=== PATIENT | male | born 1945 | race Caucasian/White ===

== ENCOUNTER 2019-06-20 14:20 | Emergency (ER) | payer MEDICARE, MEDICAID, SELFPAY ==
[2019-06-20 14:46] VITALS: BP 123/82; PULSE 119; RESP 20; TEMP 36.7; O2SAT 95
--- NOTE | 2019-06-20 15:05 | ED_ITS ---
HPI - Fall General: Chief Complaint: Fall Stated Complaint: fell hurt left hip,groin,head Time Seen by Provider: 06/20/19 14:55 Source: patient Mode of arrival: ambulatory Limitations: no limitations History of Present Illness: HPI Narrative: Patient comes in for left hip and groin pain after falling in the bathroom this morning. Patient appears in mild to moderate pain. Patient does appear well. Patient has a smell of alcohol on his breath. Patient does report having hypertension, is on a blood thinner, and takes cholesterol medicine. Patient does report alcohol consumption Review of Systems General: Reports: 10 or more systems reviewed and unremarkable except in HPI and below Musc: Reports: joint pain (left hip) PFSH ED PFSH: Statuses (acute, chronic, etc) shown below reflect problem list status as previously entered and may not be historically accurate Social History Smoking and tobacco status: current every day smoker Physical Exam Const: COMMON NORMALS: no apparent distress and oriented x3 GENERAL APPEARANCE: cooperative HENMT: COMMON NORMALS: normocephalic, external ears normal, EAC's normal, TM's normal bilaterally and external nose normal HEAD & SCALP: normal to inspection and normocephalic FACE & SINUS: normal facial exam NOSE: external nose normal GENERAL EAR: hearing not grossly impaired EXTERNAL EAR: Yes external ears normal EXTERNAL AUDITORY CANAL: EAC's normal TYMPANIC MEMBRANE: TM's normal bilaterally MOUTH: oral and palatal mucosa normal THROAT: posterior oropharynx normal Eye: COMMON NORMALS: PERRL and EOMs intact bilaterally PUPIL: Yes PERRL Neck/C-Spine: COMMON NORMALS: full ROM and no lymphadenopathy Lymph: LYMPHATIC: no lymphedema noted Chest: COMMONS NORMALS: inspection of chest normal and palpation of chest normal Resp: COMMON NORMALS: normal respiratory effort and clear to auscultation bilaterally AUSCULTATION: clear to auscultation bilaterally Cardio: COMMON NORMALS: regular rate and regular rhythm RATE: regular rate RHYTHM: regular rhythm GI: COMMON NORMALS: normal to inspection, nondistended, normoactive bowel sounds and non-tender : COMMON NORMALS: Yes no CVA tenderness BLADDER/KIDNEY EXAM: Yes no CVA tenderness Back/Pelvis: COMMON NORMALS: no CVA tenderness and thoracic and lumbar spine normal to inspection Extremity: COMMON NORMALS: negative for full ROM (left hip reduce movement d/t pain) GENERAL: No edema LEFT LOWER EXTREMITY: Yes hip joint Left hip: Yes palpation (tender) Neuro: COMMON NORMALS: oriented x3, moves all extremities and no focal motor deficits Psych: COMMON NORMALS: mental status grossly normal and cooperative Skin: COMMON NORMALS: no rashes or lesions noted GENERAL SKIN EXAM: no rashes or lesions noted Course Vital Signs: Vital signs: Vital Signs Temperature 98.1 F 06/20/19 14:46 Pulse Rate 78 06/20/19 16:04 Respiratory Rate 18 06/20/19 16:04 Blood Pressure 165/89 06/20/19 16:04 Pulse Oximetry 96 06/20/19 16:04 MDM - Fall MDM Narrative: Medical decision making narrative: Patient comes in today for complaints of left hip pain. Patient had fallen this morning and has been having increasing pain and inability to stand and bear weight to the left lower extremity. On exam patient appears well. Patient does have the smell of alcohol on his breath. Patient is unable to lift his left leg off the bed and has pain with movement of the leg. Right leg is normal. Abdomen soft nontender bowel sounds are present. Differential diagnosis includes intracranial bleeding, fracture of the hip, compression fracture of the spine, pneumonia, rib fracture. X-ray of the chest was normal. CT of the head noted no bleeding or fracture. CT of the pelvis noted no hip fracture or sign of compression fracture of the low spine. Patient had improved mobility of the hip after medication with pain. Encourage patient to drink plenty of fluids maintain activity as tolerated and follow-up with primary care in 3 days. Patient reported understanding and agreed to plan. Discharge Plan Discharge Patient Disposition: Home, Self-Care Clinical Impression: Fall from other slipping, tripping, or stumbling, Acute pain of left hip Condition: Stable Prescriptions: New hydrocodone-acetaminophen 5-325 mg tablet 1 tab PO Q8H PRN (Reason: pain) Qty: 10 RF: 0 Discharge Orders: Discharge Order (Routine); Ordered 06/20/19 Ordered By: Kyaw Lozada Referrals: Corrine Rainey MD [Primary Care Provider] - Discharge Diet: Usual diet Discharge Activity: Use walker/crutches as instructed Activity Restrictions/Additional Instructions: Activity as tolerated Gentle stretching and range of motion exercise Ice or heat to area of pain Drink plenty of water with medications Follow-up with primary care in three days for recheck Return to ER for high fever or new concerns Coding Level of Care Code ED Student Success Advisor for Juan Delarosa Exam Problem Focused
--- NOTE | 2019-06-20 15:12 | CT_ITS ---
WS: [id number] CT scan of the head, 06/20/2019 Clinical Data: fall Comparison: CT head, 01/14/2017. DLP: 785.[address] scans at [facility] use at least one of these dose optimization techniques: automat ed exposure control; mA and/or kV adjustment per patient size (includes targeted exams where dose is matched to clinical indication); or iterative reconstruction. Findings: The ventricular system is moderately dilated without shift. No recent infarct or hemorrhage is seen. There are no abnormal intracerebral masses. The cerebellum and brainstem are not remarkable. Bony windows of the skull and skull base show no fractures or erosions. The mastoid air cells, pr intern al auditory canals, sella turcica, intraorbital contents, and paranasal sinuses are unremarkable. CT/CT head wo con* [id number] Impression: Moderate cerebral atrophy unchanged.
--- NOTE | 2019-06-20 15:12 | XR_ITS ---
WS: [id number] Portable AP upright chest, 06/20/2019 Clinical Data: fall Comparison: None. Findings: No nodules, masses or effusions are seen. The heart is normal. The pulmonary vascularity is not increased. No pneumonia or pneumothorax is seen. There is patchy atelectasis over the surface of the left diaphragm. The diaphragms are flattened. Aortic arch shows calcification and minimal tortuo sity. 1. Minimal patchy atelectasis over surface of the left diaphragm. 2. Atherosclerosis and hyperinflation. XR/XR chest 1V portable [id number] Impression:
--- NOTE | 2019-06-20 15:12 | CT_ITS ---
WS: [id number] CT scan of the pelvis and hips. Additional two-dimensional coronal and sagittal reconstruction was pe rformed. 06/20/2019 Clinical Data: fall right groin pain Comparison: None. DLP: 423.54 mGy-cm All CT scans at [facility] use at least one of these dose optimization techniques: automat ed exposure control; mA and/or kV adjustment per patient size (includes targeted exams where dose is matched to clinical indication); or iterative reconstruction. Findings: No fractures or dislocations are seen. The SI joints are normal. The hips are unremarkable. The pubic symphysis is normal. Transvenous disease at L3-L4, L4-L5 and L5-S1 is seen. There is vascular calcif ication of the distal abdominal aorta and the iliac arteries. The soft tissues are not remarkable. Bl adder is full. There is fecal material in the rectum. No inguinal hernia is seen. CT/CT bony pelvis [id number] Impression: Negative CT scan of the pelvis and hips.
[2019-06-20 15:18] VITALS: RESP 18; O2SAT 98
[2019-06-20] MEDS: fentaNYL 50 mcg/mL INJ 2mL 25 MCG IVP (15:18)
[2019-06-20] MEDS: ketorolac 30 mg/mL INJ 15 MG IVP (16:01)
[2019-06-20 16:04] VITALS: BP 165/89; PULSE 78; RESP 18; O2SAT 96
== END 2019-06-20 16:06 | disposition home or self-care (01) ==
LOC: ER 16:38
PROVIDERS: Emergency Provider Nurse Practitioner Family; Family Provider Family Medicine; PCP Family Medicine
DX: M25.552 Pain in left hip (principal); F17.210 Nicotine dependence, cigarettes, uncomplicated
CPT/HCPCS: 70450; 71045; 72192; 96374; 96375; 99281; J1885; J3010

== ENCOUNTER 2019-07-03 13:57 | Emergency (ER) | payer MEDICARE, MEDICAID, SELFPAY ==
[2019-07-03 13:59] VITALS: BMI 28.0
--- NOTE | 2019-07-03 13:59 | ED_ITS ---
HPI - Abdominal Pain General: Chief Complaint: Urogenital-Male Stated Complaint: ABDOMEN PAIN Time Seen by Provider: 07/03/19 13:58 Source: patient Mode of arrival: ambulatory Limitations: no limitations History of Present Illness: HPI narrative: Patient is a 74-year-old male who presents to ED today with complaints of dysuria and hematuria as well as lower abdominal pain; symptoms began this morning; patient does have a history of BPH that he follows up with Dr. Sheth for; patient denies nausea, vomiting, diarrhea, constipation; he has not had fever/chills; he denies flank pain MD elicited complaint: abdominal pain Pertinent past history: other (BPH) Onset (ago): hour(s) Pain Consistency: constant Location: Suprapubic Severity: mild Radiation: none Migration to: no migration Exacerbating factors: nothing Relieving factors: other (urinating ) Associated Symptoms: Reports no associated symptoms, dysuria and hematuria; Denies chills, constipation, diarrhea, fever(s), heartburn, hematemesis, nausea and vomiting Review of Systems Const: Denies: fever or chills Card: Denies: chest pain, palpitations, irregular heart rhythm, edema, lightheadedness or pre-syncope Resp: Denies: shortness of breath, productive cough, coughing up blood or chest congestion GI: Reports: abdominal pain; Denies: nausea, vomiting, vomiting blood, difficulty swallowing, heartburn/indigestion, diarrhea, constipation or painful bowel movements : Reports: painful urination and blood in urine; Denies: flank pain, difficulty urinating, urinary frequency, urinary urgency, urinary hesitancy, penile discharge, testicular pain or scrotal swelling Musc: Denies: neck pain or back pain Skin/Breast: Denies: rash Neuro: Denies: headache, numbness in extremities, weakness in extremities or difficulty walking PFSH ED PFSH: Statuses (acute, chronic, etc) shown below reflect problem list status as previously entered and may not be historically accurate Social History Smoking and tobacco status: current every day smoker Physical Exam Const: COMMON NORMALS: no apparent distress, oriented x3, alert and well nourished OTHER: smells of etoh HENMT: COMMON NORMALS: normocephalic and head/scalp atraumatic HEAD & SCALP: normocephalic and atraumatic Neck/C-Spine: COMMON NORMALS: full ROM, no lymphadenopathy, supple and no meningeal signs Chest: COMMONS NORMALS: inspection of chest normal Resp: COMMON NORMALS: normal respiratory effort and clear to auscultation bilaterally AUSCULTATION: clear to auscultation bilaterally Cardio: COMMON NORMALS: regular rate and regular rhythm RATE: regular rate RHYTHM: regular rhythm GI: COMMON NORMALS: normal to inspection, nondistended, normoactive bowel s ounds, soft to palpation, no hepatosplenomegaly and no masses PALPATION: Yes soft, Yes tender (mild; across lower abdomen) and Yes no hepatosplenomegaly : COMMON NORMALS: Yes no CVA tenderness BLADDER/KIDNEY EXAM: Yes no CVA tenderness Back/Pelvis: COMMON NORMALS: no CVA tenderness and thoracic and lumbar spine normal to inspection Extremity: COMMON NORMALS: normal to inspection Neuro: COMMON NORMALS: oriented x3 SENSORIUM/ORIENTATION: Yes alert MENINGEAL SIGNS: Yes no meningeal signs Skin: COMMON NORMALS: no rashes or lesions noted GENERAL SKIN EXAM: no rashes or lesions noted Course Vital Signs: Vital signs: Vital Signs Temperature 97.9 F 07/03/19 14:27 Pulse Rate 73 07/03/19 17:26 Respiratory Rate 20 H 07/03/19 17:26 Blood Pressure 140/71 07/03/19 17:26 Pulse Oximetry 97 07/03/19 17:26 MDM - Abdominal Pain Lab Data: Labs: Lab Results 07/03/19 07/03/19 07/03/19 Range/Units 14:28 14:28 15:57 WBC 11.0 H (4.0-10.0) 10^3/ uL RBC 4.99 (4.1-5.3) 10^6/u L Hgb 15.2 (11.7-16.6) g/dL Hct 44.8 (42.0-52.0) % MCV 89.8 (80-94) fL MCH 30.5 (28.0-34.0) pg MCHC 33.9 (30.0-36.0) g/dL RDW 14.6 (12.1-15.1) % Plt Count 254 (130-400) 10^3/c mm MPV 9.7 (7.4-10.4) fL Neut % (Auto) 63.4 % Lymph % (Auto) 26.7 % O'Brien % (Auto) 6.9 % Eos % (Auto) 2.2 % Baso % (Auto) 0.4 % Neut # (Auto) 7.0 (1.8-7.7) 10^3/u L Lymph # (Auto) 2.9 (0.8-4.8) 10^3/u L O'Brien # (Auto) 0.8 (0.2-0.9) 10^3/u L Eos # (Auto) 0.2 (0.0-0.8) 10^3/u L Baso # (Auto) 0.0 (0.0-0.1) 10^3/u L Nucleated RBC % (a uto) 0 % Nucleated RBCs # 0.0 /100WBC Sodium 135 L (136-145) mmol/L Potassium 3.5 (3.5-5.1) mmol/L Chloride 96 L (98-107) mmol/L Carbon Dioxide 27 (22-29) mmol/L Anion Gap 15.5 (5-19) BUN 14 (8-23) mg/dL Creatinine 0.9 (0.7-1.2) mg/dL Glucose 83 (74-106) mg/dL Calcium 9.9 (8.8-10.2) mg/Dl Total Bilirubin 0.5 (0.15-1.2) mg/dL AST 20 (0-40) U/L ALT 21 (0-41) U/L Alkaline Phosphata se 128 (40-130) IU/L Total Protein 6.6 (6.6-8.7) g/dL Albumin 4.0 (3.5-5.2) g/dL Globulin 2.6 (1.3-4.6) g/dL Lipase 23 (13-60) U/L Urine Color Yellow (Yellow) Urine Appearance Sl hazy (CLEAR) Urine pH 7 (5-7) Ur Specific Gravit y 1.001 L (1.005-1.030) Urine Protein Neg (Negative) Urine Glucose (UA) Norm (Normal) Urine Ketones Negative (Negative) Urine Occult Blood 3+ H (Negative) Urine Nitrate Negative (Negative) Urine Bilirubin Neg (NEGATIVE) Urine Urobilinogen Norm (Negative) mg/dL Ur Leukocyte Debora ase 2+ H (Negative) Urine RBC 25-40 H (0-2) /hpf Urine WBC Too numerous to c nt H (0-5) /hpf Ur Squamous Epith Cells None (0-5) Urine Bacteria 2+ H (NONE) Urine Mucus Trace Discharge Plan Discharge Patient Disposition: Home, Self-Care Clinical Impression: Urinary tract infection Qualifiers: Urinary tract infection type: acute cystitis Hematuria presence: with hematuria Qualified Code(s): N30.01 - Acute cystitis with hematuria Condition: Stable Prescriptions: New ciprofloxacin HCl 500 mg tablet 500 mg PO BID Qty: 7 RF: 0 No Action hydrocodone-acetaminophen 5-325 mg tablet 1 tab PO Q8H PRN (Reason: pain) Qty: 10 RF: 0 Discharge Orders: Discharge Order (Routine); Ordered 07/03/19 Ordered By: America Govea Referrals: Corrine Rainey MD [Primary Care Provider] - Discharge Diet: Usual diet Discharge Activity: Resume usual activity Activity Restrictions/Additional Instructions: Please return to the emergency department for worsening pain, worsening blood, fevers of 100.4 or greater, flank pain, or any other concerns you may have. Otherwise follow-up with Dr. Sheth at your scheduled appointment. Discharge Date/Time: 07/03/19 17:33 Coding Level of Care Code ED Apron Operator for Juan Delarosa Exam Problem Focused
[2019-07-03 14:27] VITALS: BP 142/78; PULSE 73; RESP 14; TEMP 36.6; O2SAT 96
[2019-07-03 14:36] LABS: Basophils % 0.4 %; Eosinophils # 0.2 10^3/uL (0.0-0.8); Eosinophils % 2.2 %; Hematocrit 44.8 % (42.0-52.0); Hemoglobin 15.2 g/dL (11.7-16.6); Lymphocytes # 2.9 10^3/uL (0.8-4.8); Lymphocytes % 26.7 %; Mean Corpuscular HGB Conc 33.9 g/dL (30.0-36.0); Mean Corpuscular Hemoglobin 30.5 pg (28.0-34.0); Mean Corpuscular Volume 89.8 fL (80-94); Mean Platelet Volume 9.7 fL (7.4-10.4); Monocytes # 0.8 10^3/uL (0.2-0.9); Monocytes % 6.9 %; Neutrophils % 63.4 %; Nucleated Red Blood Cells % 0 %; Platelet Count 254 10^3/cmm (130-400); Red Blood Count 4.99 10^6/uL (4.1-5.3); Red Cell Distribution Width 14.6 % (12.1-15.1)
[2019-07-03 14:51] VITALS: BMI 28.0
[2019-07-03 14:59] LABS: Alanine Aminotransferase 21 U/L (0-41); Alkaline Phosphatase 128 IU/L (40-130); Anion Gap 15.5 (5-19); Aspartate Amino Transferase 20 U/L (0-40); Blood Urea Nitrogen 14 mg/dL (8-23); Calcium 9.9 mg/Dl (8.8-10.2); Carbon Dioxide 27 mmol/L (22-29); Chloride 96 mmol/L (98-107); Globulin 2.6 g/dL (1.3-4.6); Glucose 83 mg/dL (74-106); Lipase 23 U/L (13-60); Potassium 3.5 mmol/L (3.5-5.1); Sodium 135 mmol/L (136-145); Total Bilirubin 0.5 mg/dL (0.15-1.2); Total Protein 6.6 g/dL (6.6-8.7)
[2019-07-03 16:17] LABS: Bilirubin Urine Neg (NEGATIVE); Blood Urine 3+ (Negative); Glucose Urine UA Norm (Normal); Ketones Urine Negative (Negative); Nitrate Urine Negative (Negative); Protein Urine Neg (Negative); Specific Gravity, Urine 1.001 (1.005-1.030); Urine Appearance SL Hazy (CLEAR); Urine Color Yellow (Yellow); pH Urine 7 (5-7)
[2019-07-03 16:18] LABS: Add Urine Microscopic? YES; Leukocyte Esterase Urine 2+ (Negative); Urobilinogen Urine Norm (Negative)
[2019-07-03 16:23] LABS: Add Urine Culture? Yes; Bacteria Urine 2+; Mucus Urine TRACE; RBC Urine 25-40 /hpf (0-2); WBC Urine TOO NUMEROUS TO CNT /hpf (0-5)
[2019-07-03 17:26] VITALS: BP 140/71; PULSE 73; RESP 20; O2SAT 97
== END 2019-07-03 17:33 | disposition home or self-care (01) ==
PROVIDERS: Emergency Provider Physician Assistant; Family Provider Family Medicine; PCP Family Medicine
DX: N30.01 Acute cystitis with hematuria (principal); F17.210 Nicotine dependence, cigarettes, uncomplicated
CPT/HCPCS: 36415; 80053; 81003; 83690; 85025; 87077; 87086; 87186; 99282

== ENCOUNTER 2019-07-19 19:27 | Inpatient (IN) | payer MEDICARE, MEDICAID, SELFPAY ==
[2019-07-19 19:28] VITALS: BP 123/68; PULSE 109; RESP 18; TEMP 37.1; O2SAT 92; BMI 28.0
--- NOTE | 2019-07-19 19:36 | XR_ITS ---
WS: [id number] ONE VIEW CHEST HISTORY: 74 years old Male with cough/congestion AP upright chest comparison 06/30/2019 FINDINGS: Continued lung hyperexpansion with bibasilar increased interstitial markings. Slight improved left lo wer lung zone atelectasis and/or pneumonia. No interval pulmonary parenchymal opacity. Heart size and pulmonary vascular markings unremarkable. Thoracic aorta atherosclerosis. No subdiaphragmatic free a ir. XR/XR chest 1V portable [id number] IMPRESSION: Chronic emphysema with bibasilar interstitial scarring/fibrosis and mild improv ed left basilar atelectasis and/or pneumonia.
--- NOTE | 2019-07-19 19:38 | ECG_ITS ---
Measurements Intervals [place] Rate: 110 P: MD: 0 QRS: 44 QRSD: 92 T: 56 QT: 337 QTc: 457 ATRIAL FIBRILLATION WITH RAPID VENTRICULAR RESPONSE WITH ABERRANT CONDUCTION OR VE VENTRICULAR PREMATURE COMPLEXES ABNORMAL RHYTHM ECG Compared to ECG 06/05/2019 02:11:03 Aberrant conduction of supraventricular beat(s) now present Ventricular premature complex(es) now present Electronically Signed On 07-19-2019 22:17:38 SUPERVISOR ADVICE by Dionne Stark M.D. [email or web address]
--- NOTE | 2019-07-19 19:38 | W.ED.SOB ---
Documented by User: KAPIL Hoang 07/20/19 00:44 HPI - SOB/Dyspnea General: Chief Complaint: Shortness of Breath/Dyspnea Stated Complaint: resp distress Time Seen by Provider: 07/19/19 19:36 Source: patient and EMS Mode of arrival: EMS Limitations: no limitations History of Present Illness: HPI Narrative: Patient is a 74-year-old male who presents to ED today via EMS for complaints of fevers, shortness of breath, and chest pains that have been present over the past 3 days. He states fevers have been as high as 102. He states the chest pain has been intermittent and located substernally. It is accompanied with a productive cough. Patient reports no previous cardiac history but does report a history of atrial fibrillation. Reports a history of COPD. Complains of some mild abdominal pain that is not accompanied with nausea, vomiting, or diarrhea. Has noticed dark and foul-smelling urine. MD elicited complaint: shortness of breath, cough, pain with inspiration and chest pain Pertinent past history: COPD Onset (ago): day(s) Exacerbating factors: nothing Relieving factors: nothing Known history of: COPD Associated symptoms: Reports abdominal pain, chest congestion, chest pain and fever(s); Deny extremity pain, hemoptysis, lightheadedness, nausea, orthopnea, palpitations, syncope or vomiting Review of Systems Const: Reports: fever, chills and body aches Eyes: Denies: change in vision, blurry vision, photophobia or eye discharge ENMT: Denies: throat pain, enlarged tonsils or painful swallowing Card: Reports: chest pain; Denies: palpitations, irregular heart rhythm (chronic hx of atrial fib), edema, swelling of feet/ankles, lightheadedness, syncope, pre-syncope, shortness of breath on exertion or shortness of breath when lying down Resp: Reports: shortness of breath, productive cough, pain on inspiration, change in phlegm color and chest congestion; Denies: wheezing or coughing up blood GI: Reports: abdominal pain; Denies: nausea, vomiting, vomiting blood, difficulty swallowing, heartburn/indigestion, diarrhea, change in stool character or white/light colored stool : Reports: other (reports darker than normal urine and foul odor ); Denies: difficulty urinating, painful urination, urinary frequency, urinary urgency or urinary hesitancy Musc: Denies: neck pain, back pain, extremity pain, extremity swelling, joint pain, joint swelling, redness or joint warmth Skin/Breast: Denies: rash Neuro: Denies: headache, numbness in extremities, weakness in extremities or changes in sensation PFSH ED PFSH: Statuses (acute, chronic, etc) shown below reflect problem list status as previously entered and may not be historically accurate Medical History (Updated 07/20/19 @ 00:03 by Alonso Cotto MD) Anxiety and depression (Acute) Atrial fibrillation (Acute) Chronic anticoagulation (Acute) COPD (chronic obstructive pulmonary disease) (Acute) Hyperlipidemia (Acute) Hypertension (Acute) Surgical History (Updated 07/19/19 @ 23:55 by Alonso Cotto MD) H/O eye surgery (Acute) History of laparotomy (Acute) History of lithotripsy (Acute) History of ureter stent (Acute) Family History (Updated 07/19/19 @ 23:55 by Alonso Cotto MD) Other CAD (coronary artery disease) Social History (Updated 07/19/19 @ 23:56 by Alonso Cotto MD) Smoking and tobacco status: current every day smoker Alcohol intake: current Alcohol intake frequency: 3 or more drinks per day Alcohol type: hard liquor Substance/Drug Use: never Physical Exam Const: COMMON NORMALS: average body habitus, oriented x3, no limitations, alert and well nourished ORIENTATION/CONSCIOUSNESS: Yes oriented to person, Yes oriented to place and Yes oriented to time OTHER: looks like he doesn't feel well; mildly diaphoretic; smells of etoh HENMT: COMMON NORMALS: normocephalic, head/scalp atraumatic, hearing grossly normal bilaterally, EAC's normal, TM's normal bilaterally, external nose normal, nasal mucous membranes and turbinates normal, moist oral mucous membranes and oropharynx normal HEAD & SCALP: normocephalic and atraumatic NOSE: external nose normal and nasal mucous membranes and turbinates normal EXTERNAL AUDITORY CANAL: EAC's normal TYMPANIC MEMBRANE: TM's normal bilaterally Eye: COMMON NORMALS: PERRL and EOMs intact bilaterally PUPIL: Yes PERRL Neck/C-Spine: COMMON NORMALS: full ROM, no lymphadenopathy and no meningeal signs Resp: COMMON NORMALS: normal respiratory effort AUSCULTATION: wheezes (scattered throughout ) Cardio: RATE: tachycardic RHYTHM: abnormal rhythm irregularly irregular GI: COMMON NORMALS: normal to inspection, nondistended, normoactive bowel sounds, soft to palpation, non-tender, no hepatosplenomegaly and no masses PALPATION: Yes soft and Yes no hepatosplenomegaly Extremity: COMMON NORMALS: normal to inspection Neuro: COMMON NORMALS: oriented x3, CN's II-XII intact bilaterally, moves all extremities, no focal motor deficits and no sensory deficits noted SENSORIUM/ORIENTATION: Yes alert, Yes oriented to person, Yes oriented to place and Yes oriented to time MENINGEAL SIGNS: Yes no meningeal signs Skin: COMMON NORMALS: no rashes or lesions noted GENERAL SKIN EXAM: no rashes or lesions noted Course Vital Signs: Vital signs: Vital Signs Temperature 98.2 F 07/19/19 21:25 Pulse Rate 86 07/20/19 00:27 Respiratory Rate 18 07/20/19 00:27 Blood Pressure 151/95 07/20/19 00:27 Pulse Oximetry 96 07/20/19 00:27 MDM - SOB/Dyspnea MDM Narrative: Medical decision making narrative: Patient is a 74-year-old male with a history of COPD who presented to ED today with complaints of shortness of breath, difficulty breathing, chest pain, fevers of up to 102, body aches, and dark/foul-smelling urine. Initial EKG and repeat EKG both showing atrial fibrillation that patient has a history of. Initial troponin is 39-pending repeat. He has mild leukocytosis of 10.7 with a normal lactate. He has a potassium of 2.5-normal mag. He was started on IV potassium here. CXR appears normal. O2 sats here dipping to 88% so he was placed on 2L. UA showing probable UTI with WBCs too many to count. Last urine culture grew enterococcus faecalis. Patient does report a history of chronic UTIs and sees Dr. Sheth for this. LFTs mildly elevated but patient is a chronic alcohol user. His influenza swab is negative. Spoke to Dr. Mcintyre who spoke to Dr. Cotto who requested ABG and will admit the patient. Lab Data: Labs: Lab Results 07/19/19 07/19/19 07/19/19 Range/Units 19:39 19:45 19:45 WBC 10.7 H (4.0-10.0) 10^3/ uL RBC 4.67 (4.1-5.3) 10^6/u L Hgb 13.7 (11.7-16.6) g/dL Hct 39.3 L (42.0-52.0) % MCV 84.2 (80-94) fL MCH 29.3 (28.0-34.0) pg MCHC 34.9 (30.0-36.0) g/dL RDW 15.1 (12.1-15.1) % Plt Count 182 (130-400) 10^3/c mm MPV 10.4 (7.4-10.4) fL Neut % (Auto) 70.0 % Lymph % (Auto) 15.8 % [place] % (Auto) 13.0 % Eos % (Auto) 0.2 % Baso % (Auto) 0.2 % Neut # (Auto) 7.5 (1.8-7.7) 10^3/u L Lymph # (Auto) 1.7 (0.8-4.8) 10^3/u L [place] # (Auto) 1.4 H (0.2-0.9) 10^3/u L Eos # (Auto) 0.0 (0.0-0.8) 10^3/u L Baso # (Auto) 0.0 (0.0-0.1) 10^3/u L Nucleated RBC % (a uto) 0 % Nucleated RBCs # 0.0 /100WBC Specimen Type Sample Site ABG pH (7.35-7.45) ABG pCO2 (35-45) mmHg ABG pO2 (80.0-100.0) mmH g ABG HCO3 (22-26) mmol/L ABG Base Excess (-2.0-2.0) mmol/ L Ancelmo Test Hematocrit (42-52) % O2 Delivery Device O2 Liters/Min % Cnc Operator Programmer ID Sodium 131 L (136-145) mmol/L Potassium 2.5 L* (3.5-5.1) mmol/L Chloride 89 L (98-107) mmol/L Carbon Dioxide 26 (22-29) mmol/L Anion Gap 18.5 (5-19) BUN 19 (8-23) mg/dL Creatinine 0.9 (0.7-1.2) mg/dL Glucose 119 H (65-115) mg/dL Lactate (0.5-2.2) mmol/L Calcium 9.6 (8.5-10.5) mg/dL Magnesium (1.7-2.3) mg/dL Total Bilirubin 0.5 (0.15-1.2) mg/dL AST 60 H (0-40) U/L ALT 42 H (0-41) U/L Alkaline Phosphata se 97 (40-130) IU/L Creatine Kinase 282 (39-308) U/L CK-MB (CK-2) 4.2 (0-10.4) ng/mL CK-MB (CK-2) Rel I ndex (0.0-5.3) % Troponin T Baselin e (0-15) ng/mL Troponin T 120 Min [place] (0-15) ng/mL Delta Troponin T (0-10) ABS# Total Protein 6.8 (6.6-8.7) g/dL Albumin 3.3 L (3.5-5.2) g/dL Globulin 3.5 (1.3-4.6) g/dL Urine Color (Yellow) Urine Appearance (CLEAR) Urine pH (5-7) Ur Specific Gravit y (1.005-1.030) Urine Protein (Negative) Urine Glucose (UA) (Normal) Urine Ketones (Negative) Urine Occult Blood (Negative) Urine Nitrate (Negative) Urine Bilirubin (NEGATIVE) Urine Urobilinogen (Negative) mg/dL Ur Leukocyte Debora ase (Negative) Urine RBC (0-2) /hpf Urine WBC (0-5) /hpf Ur Squamous Epith Cells (0-5) Urine Bacteria (NONE) Ethyl Alcohol (0-10) mg/dL Influenza Type A A g Negative (Negative) POC Influenza B Ag Negative (Negative) 07/19/19 07/19/19 07/19/19 Range/Units 19:45 19:45 19:45 WBC (4.0-10.0) 10^3/ uL RBC (4.1-5.3) 10^6/u L Hgb (11.7-16.6) g/dL Hct (42.0-52.0) % MCV (80-94) fL MCH (28.0-34.0) pg MCHC (30.0-36.0) g/dL RDW (12.1-15.1) % Plt Count (130-400) 10^3/c mm MPV (7.4-10.4) fL Neut % (Auto) % Lymph % (Auto) % [place] % (Auto) % Eos % (Auto) % Baso % (Auto) % Neut # (Auto) (1.8-7.7) 10^3/u L Lymph # (Auto) (0.8-4.8) 10^3/u L [place] # (Auto) (0.2-0.9) 10^3/u L Eos # (Auto) (0.0-0.8) 10^3/u L Baso # (Auto) (0.0-0.1) 10^3/u L Nucleated RBC % (a uto) % Nucleated RBCs # /100WBC Specimen Type Sample Site ABG pH (7.35-7.45) ABG pCO2 (35-45) mmHg ABG pO2 (80.0-100.0) mmH g ABG HCO3 (22-26) mmol/L ABG Base Excess (-2.0-2.0) mmol/ L Ancelmo Test Hematocrit (42-52) % O2 Delivery Device O2 Liters/Min % Cnc Operator Programmer ID Sodium (136-145) mmol/L Potassium (3.5-5.1) mmol/L Chloride (98-107) mmol/L Carbon Dioxide (22-29) mmol/L Anion Gap (5-19) BUN (8-23) mg/dL Creatinine (0.7-1.2) mg/dL Glucose (65-115) mg/dL Lactate 1.8 (0.5-2.2) mmol/L Calcium (8.5-10.5) mg/dL Magnesium 2.1 (1.7-2.3) mg/dL Total Bilirubin (0.15-1.2) mg/dL AST (0-40) U/L ALT (0-41) U/L Alkaline Phosphata se (40-130) IU/L Creatine Kinase (39-308) U/L CK-MB (CK-2) (0-10.4) ng/mL CK-MB (CK-2) Rel I ndex (0.0-5.3) % Troponin T Baselin e 39 H (0-15) ng/mL Troponin T 120 Min [place] (0-15) ng/mL Delta Troponin T (0-10) ABS# Total Protein (6.6-8.7) g/dL Albumin (3.5-5.2) g/dL Globulin (1.3-4.6) g/dL Urine Color (Yellow) Urine Appearance (CLEAR) Urine pH (5-7) Ur Specific Gravit y (1.005-1.030) Urine Protein (Negative) Urine Glucose (UA) (Normal) Urine Ketones (Negative) Urine Occult Blood (Negative) Urine Nitrate (Negative) Urine Bilirubin (NEGATIVE) Urine Urobilinogen (Negative) mg/dL Ur Leukocyte Debora ase (Negative) Urine RBC (0-2) /hpf Urine WBC (0-5) /hpf Ur Squamous Epith Cells (0-5) Urine Bacteria (NONE) Ethyl Alcohol (0-10) mg/dL Influenza Type A A g (Negative) POC Influenza B Ag (Negative) 07/19/19 07/19/19 07/19/19 Range/Units 20:14 21:30 21:30 WBC (4.0-10.0) 10^3/ uL RBC (4.1-5.3) 10^6/u L Hgb (11.7-16.6) g/dL Hct (42.0-52.0) % MCV (80-94) fL MCH (28.0-34.0) pg MCHC (30.0-36.0) g/dL RDW (12.1-15.1) % Plt Count (130-400) 10^3/c mm MPV (7.4-10.4) fL Neut % (Auto) % Lymph % (Auto) % [place] % (Auto) % Eos % (Auto) % Baso % (Auto) % Neut # (Auto) (1.8-7.7) 10^3/u L Lymph # (Auto) (0.8-4.8) 10^3/u L [place] # (Auto) (0.2-0.9) 10^3/u L Eos # (Auto) (0.0-0.8) 10^3/u L Baso # (Auto) (0.0-0.1) 10^3/u L Nucleated RBC % (a uto) % Nucleated RBCs # /100WBC Specimen Type Sample Site ABG pH (7.35-7.45) ABG pCO2 (35-45) mmHg ABG pO2 (80.0-100.0) mmH g ABG HCO3 (22-26) mmol/L ABG Base Excess (-2.0-2.0) mmol/ L Ancelmo Test Hematocrit (42-52) % O2 Delivery Device O2 Liters/Min % Cnc Operator Programmer ID Sodium (136-145) mmol/L Potassium (3.5-5.1) mmol/L Chloride (98-107) mmol/L Carbon Dioxide (22-29) mmol/L Anion Gap (5-19) BUN (8-23) mg/dL Creatinine (0.7-1.2) mg/dL Glucose (65-115) mg/dL Lactate (0.5-2.2) mmol/L Calcium (8.5-10.5) mg/dL Magnesium (1.7-2.3) mg/dL Total Bilirubin (0.15-1.2) mg/dL AST (0-40) U/L ALT (0-41) U/L Alkaline Phosphata se (40-130) IU/L Creatine Kinase (39-308) U/L CK-MB (CK-2) (0-10.4) ng/mL CK-MB (CK-2) Rel I ndex (0.0-5.3) % Troponin T Baselin e (0-15) ng/mL Troponin T 120 Min [place] 31.68 H (0-15) ng/mL Delta Troponin T -7.32 L (0-10) ABS# Total Protein (6.6-8.7) g/dL Albumin (3.5-5.2) g/dL Globulin (1.3-4.6) g/dL Urine Color Dark yellow (Yellow) Urine Appearance Cloudy (CLEAR) Urine pH 7 (5-7) Ur Specific Gravit y 1.005 (1.005-1.030) Urine Protein 1+ H (Negative) Urine Glucose (UA) Norm (Normal) Urine Ketones Negative (Negative) Urine Occult Blood 3+ H (Negative) Urine Nitrate Negative (Negative) Urine Bilirubin Neg (NEGATIVE) Urine Urobilinogen 1 H (Negative) mg/dL Ur Leukocyte Debora ase 2+ H (Negative) Urine RBC 40-50 H (0-2) /hpf Urine WBC Too numerous to c nt H (0-5) /hpf Ur Squamous Epith Cells None (0-5) Urine Bacteria 1+ H (NONE) Ethyl Alcohol 76 H (0-10) mg/dL Influenza Type A A g (Negative) POC Influenza B Ag (Negative) 07/19/19 Range/Units 22:29 WBC (4.0-10.0) 10^3/ uL RBC (4.1-5.3) 10^6/u L Hgb (11.7-16.6) g/dL Hct (42.0-52.0) % MCV (80-94) fL MCH (28.0-34.0) pg MCHC (30.0-36.0) g/dL RDW (12.1-15.1) % Plt Count (130-400) 10^3/c mm MPV (7.4-10.4) fL Neut % (Auto) % Lymph % (Auto) % [place] % (Auto) % Eos % (Auto) % Baso % (Auto) % Neut # (Auto) (1.8-7.7) 10^3/u L Lymph # (Auto) (0.8-4.8) 10^3/u L [place] # (Auto) (0.2-0.9) 10^3/u L Eos # (Auto) (0.0-0.8) 10^3/u L Baso # (Auto) (0.0-0.1) 10^3/u L Nucleated RBC % (a uto) % Nucleated RBCs # /100WBC Specimen Type Arterial Sample Site Radial, right ABG pH 7.48 H (7.35-7.45) ABG pCO2 36.2 (35-45) mmHg ABG pO2 73.0 L (80.0-100.0) mmH g ABG HCO3 27.2 H (22-26) mmol/L ABG Base Excess 3.8 H (-2.0-2.0) mmol/ L Ancelmo Test Pos Hematocrit 44.2 (42-52) % O2 Delivery Device Nc O2 Liters/Min 2.0 % Cnc Operator Programmer ID vossa Sodium (136-145) mmol/L Potassium (3.5-5.1) mmol/L Chloride (98-107) mmol/L Carbon Dioxide (22-29) mmol/L Anion Gap (5-19) BUN (8-23) mg/dL Creatinine (0.7-1.2) mg/dL Glucose (65-115) mg/dL Lactate (0.5-2.2) mmol/L Calcium (8.5-10.5) mg/dL Magnesium (1.7-2.3) mg/dL Total Bilirubin (0.15-1.2) mg/dL AST (0-40) U/L ALT (0-41) U/L Alkaline Phosphata se (40-130) IU/L Creatine Kinase (39-308) U/L CK-MB (CK-2) (0-10.4) ng/mL CK-MB (CK-2) Rel I ndex (0.0-5.3) % Troponin T Baselin e (0-15) ng/mL Troponin T 120 Min [place] (0-15) ng/mL Delta Troponin T (0-10) ABS# Total Protein (6.6-8.7) g/dL Albumin (3.5-5.2) g/dL Globulin (1.3-4.6) g/dL Urine Color (Yellow) Urine Appearance (CLEAR) Urine pH (5-7) Ur Specific Gravit y (1.005-1.030) Urine Protein (Negative) Urine Glucose (UA) (Normal) Urine Ketones (Negative) Urine Occult Blood (Negative) Urine Nitrate (Negative) Urine Bilirubin (NEGATIVE) Urine Urobilinogen (Negative) mg/dL Ur Leukocyte Debora ase (Negative) Urine RBC (0-2) /hpf Urine WBC (0-5) /hpf Ur Squamous Epith Cells (0-5) Urine Bacteria (NONE) Ethyl Alcohol (0-10) mg/dL Influenza Type A A g (Negative) POC Influenza B Ag (Negative) Discharge Plan Discharge Patient Disposition: Admitted As Inpatient Admit Provider: Alonso Cotto Clinical Impression: Acute exacerbation of chronic obstructive airways disease, Acute UTI, Elevated troponin, Acute hypokalemia Condition: Stable Referrals: Corrine Rainey MD [Primary Care Provider] - Coding Level of Care Code ED Security Alarm Installer for Chg Fwd Documented by User: Nu Mcintyre DO 07/19/19 22:50 HPI - SOB/Dyspnea General: Chief Complaint: Shortness of Breath/Dyspnea Stated Complaint: resp distress Time Seen by Provider: 07/19/19 19:36 PFSH ED PFSH: Statuses (acute, chronic, etc) shown below reflect problem list status as previously entered and may not be historically accurate Medical History (Updated 07/20/19 @ 00:03 by Alonso Cotto MD) Anxiety and depression (Acute) Atrial fibrillation (Acute) Chronic anticoagulation (Acute) COPD (chronic obstructive pulmonary disease) (Acute) Hyperlipidemia (Acute) Hypertension (Acute) Surgical History (Updated 07/19/19 @ 23:55 by Alonso Cotto MD) H/O eye surgery (Acute) History of laparotomy (Acute) History of lithotripsy (Acute) History of ureter stent (Acute) Family History (Updated 07/19/19 @ 23:55 by Alonso Cotto MD) Other CAD (coronary artery disease) Social History (Updated 07/19/19 @ 23:56 by Alonso Cotto MD) Smoking and tobacco status: current every day smoker Alcohol intake: current Alcohol intake frequency: 3 or more drinks per day Alcohol type: hard liquor Substance/Drug Use: never Course ED course: Patient seen and evaluated with MLP, agree with assessment, treatment plan and disposition. Vital Signs: Vital signs: Vital Signs Temperature 98.2 F 07/19/19 21:25 Pulse Rate 86 07/20/19 00:27 Respiratory Rate 18 07/20/19 00:27 Blood Pressure 151/95 07/20/19 00:27 Pulse Oximetry 96 07/20/19 00:27 MDM - SOB/Dyspnea Lab Data: Labs: Lab Results 07/19/19 07/19/19 07/19/19 Range/Units 19:39 19:45 19:45 WBC 10.7 H (4.0-10.0) 10^3/ uL RBC 4.67 (4.1-5.3) 10^6/u L Hgb 13.7 (11.7-16.6) g/dL Hct 39.3 L (42.0-52.0) % MCV 84.2 (80-94) fL MCH 29.3 (28.0-34.0) pg MCHC 34.9 (30.0-36.0) g/dL RDW 15.1 (12.1-15.1) % Plt Count 182 (130-400) 10^3/c mm MPV 10.4 (7.4-10.4) fL Neut % (Auto) 70.0 % Lymph % (Auto) 15.8 % [place] % (Auto) 13.0 % Eos % (Auto) 0.2 % Baso % (Auto) 0.2 % Neut # (Auto) 7.5 (1.8-7.7) 10^3/u L Lymph # (Auto) 1.7 (0.8-4.8) 10^3/u L [place] # (Auto) 1.4 H (0.2-0.9) 10^3/u L Eos # (Auto) 0.0 (0.0-0.8) 10^3/u L Baso # (Auto) 0.0 (0.0-0.1) 10^3/u L Nucleated RBC % (a uto) 0 % Nucleated RBCs # 0.0 /100WBC Specimen Type Sample Site ABG pH (7.35-7.45) ABG pCO2 (35-45) mmHg ABG pO2 (80.0-100.0) mmH g ABG HCO3 (22-26) mmol/L ABG Base Excess (-2.0-2.0) mmol/ L Ancelmo Test Hematocrit (42-52) % O2 Delivery Device O2 Liters/Min % Cnc Operator Programmer ID Sodium 131 L (136-145) mmol/L Potassium 2.5 L* (3.5-5.1) mmol/L Chloride 89 L (98-107) mmol/L Carbon Dioxide 26 (22-29) mmol/L Anion Gap 18.5 (5-19) BUN 19 (8-23) mg/dL Creatinine 0.9 (0.7-1.2) mg/dL Glucose 119 H (65-115) mg/dL Lactate (0.5-2.2) mmol/L Calcium 9.6 (8.5-10.5) mg/dL Magnesium (1.7-2.3) mg/dL Total Bilirubin 0.5 (0.15-1.2) mg/dL AST 60 H (0-40) U/L ALT 42 H (0-41) U/L Alkaline Phosphata se 97 (40-130) IU/L Creatine Kinase 282 (39-308) U/L CK-MB (CK-2) 4.2 (0-10.4) ng/mL CK-MB (CK-2) Rel I ndex (0.0-5.3) % Troponin T Baselin e (0-15) ng/mL Troponin T 120 Min [place] (0-15) ng/mL Delta Troponin T (0-10) ABS# Total Protein 6.8 (6.6-8.7) g/dL Albumin 3.3 L (3.5-5.2) g/dL Globulin 3.5 (1.3-4.6) g/dL Urine Color (Yellow) Urine Appearance (CLEAR) Urine pH (5-7) Ur Specific Gravit y (1.005-1.030) Urine Protein (Negative) Urine Glucose (UA) (Normal) Urine Ketones (Negative) Urine Occult Blood (Negative) Urine Nitrate (Negative) Urine Bilirubin (NEGATIVE) Urine Urobilinogen (Negative) mg/dL Ur Leukocyte Debora ase (Negative) Urine RBC (0-2) /hpf Urine WBC (0-5) /hpf Ur Squamous Epith Cells (0-5) Urine Bacteria (NONE) Ethyl Alcohol (0-10) mg/dL Influenza Type A A g Negative (Negative) POC Influenza B Ag Negative (Negative) 07/19/19 07/19/19 07/19/19 Range/Units 19:45 19:45 19:45 WBC (4.0-10.0) 10^3/ uL RBC (4.1-5.3) 10^6/u L Hgb (11.7-16.6) g/dL Hct (42.0-52.0) % MCV (80-94) fL MCH (28.0-34.0) pg MCHC (30.0-36.0) g/dL RDW (12.1-15.1) % Plt Count (130-400) 10^3/c mm MPV (7.4-10.4) fL Neut % (Auto) % Lymph % (Auto) % [place] % (Auto) % Eos % (Auto) % Baso % (Auto) % Neut # (Auto) (1.8-7.7) 10^3/u L Lymph # (Auto) (0.8-4.8) 10^3/u L [place] # (Auto) (0.2-0.9) 10^3/u L Eos # (Auto) (0.0-0.8) 10^3/u L Baso # (Auto) (0.0-0.1) 10^3/u L Nucleated RBC % (a uto) % Nucleated RBCs # /100WBC Specimen Type Sample Site ABG pH (7.35-7.45) ABG pCO2 (35-45) mmHg ABG pO2 (80.0-100.0) mmH g ABG HCO3 (22-26) mmol/L ABG Base Excess (-2.0-2.0) mmol/ L Ancelmo Test Hematocrit (42-52) % O2 Delivery Device O2 Liters/Min % Cnc Operator Programmer ID Sodium (136-145) mmol/L Potassium (3.5-5.1) mmol/L Chloride (98-107) mmol/L Carbon Dioxide (22-29) mmol/L Anion Gap (5-19) BUN (8-23) mg/dL Creatinine (0.7-1.2) mg/dL Glucose (65-115) mg/dL Lactate 1.8 (0.5-2.2) mmol/L Calcium (8.5-10.5) mg/dL Magnesium 2.1 (1.7-2.3) mg/dL Total Bilirubin (0.15-1.2) mg/dL AST (0-40) U/L ALT (0-41) U/L Alkaline Phosphata se (40-130) IU/L Creatine Kinase (39-308) U/L CK-MB (CK-2) (0-10.4) ng/mL CK-MB (CK-2) Rel I ndex (0.0-5.3) % Troponin T Baselin e 39 H (0-15) ng/mL Troponin T 120 Min [place] (0-15) ng/mL Delta Troponin T (0-10) ABS# Total Protein (6.6-8.7) g/dL Albumin (3.5-5.2) g/dL Globulin (1.3-4.6) g/dL Urine Color (Yellow) Urine Appearance (CLEAR) Urine pH (5-7) Ur Specific Gravit y (1.005-1.030) Urine Protein (Negative) Urine Glucose (UA) (Normal) Urine Ketones (Negative) Urine Occult Blood (Negative) Urine Nitrate (Negative) Urine Bilirubin (NEGATIVE) Urine Urobilinogen (Negative) mg/dL Ur Leukocyte Debora ase (Negative) Urine RBC (0-2) /hpf Urine WBC (0-5) /hpf Ur Squamous Epith Cells (0-5) Urine Bacteria (NONE) Ethyl Alcohol (0-10) mg/dL Influenza Type A A g (Negative) POC Influenza B Ag (Negative) 07/19/19 07/19/19 07/19/19 Range/Units 20:14 21:30 21:30 WBC (4.0-10.0) 10^3/ uL RBC (4.1-5.3) 10^6/u L Hgb (11.7-16.6) g/dL Hct (42.0-52.0) % MCV (80-94) fL MCH (28.0-34.0) pg MCHC (30.0-36.0) g/dL RDW (12.1-15.1) % Plt Count (130-400) 10^3/c mm MPV (7.4-10.4) fL Neut % (Auto) % Lymph % (Auto) % [place] % (Auto) % Eos % (Auto) % Baso % (Auto) % Neut # (Auto) (1.8-7.7) 10^3/u L Lymph # (Auto) (0.8-4.8) 10^3/u L [place] # (Auto) (0.2-0.9) 10^3/u L Eos # (Auto) (0.0-0.8) 10^3/u L Baso # (Auto) (0.0-0.1) 10^3/u L Nucleated RBC % (a uto) % Nucleated RBCs # /100WBC Specimen Type Sample Site ABG pH (7.35-7.45) ABG pCO2 (35-45) mmHg ABG pO2 (80.0-100.0) mmH g ABG HCO3 (22-26) mmol/L ABG Base Excess (-2.0-2.0) mmol/ L Ancelmo Test Hematocrit (42-52) % O2 Delivery Device O2 Liters/Min % Cnc Operator Programmer ID Sodium (136-145) mmol/L Potassium (3.5-5.1) mmol/L Chloride (98-107) mmol/L Carbon Dioxide (22-29) mmol/L Anion Gap (5-19) BUN (8-23) mg/dL Creatinine (0.7-1.2) mg/dL Glucose (65-115) mg/dL Lactate (0.5-2.2) mmol/L Calcium (8.5-10.5) mg/dL Magnesium (1.7-2.3) mg/dL Total Bilirubin (0.15-1.2) mg/dL AST (0-40) U/L ALT (0-41) U/L Alkaline Phosphata se (40-130) IU/L Creatine Kinase (39-308) U/L CK-MB (CK-2) (0-10.4) ng/mL CK-MB (CK-2) Rel I ndex (0.0-5.3) % Troponin T Baselin e (0-15) ng/mL Troponin T 120 Min [place] 31.68 H (0-15) ng/mL Delta Troponin T -7.32 L (0-10) ABS# Total Protein (6.6-8.7) g/dL Albumin (3.5-5.2) g/dL Globulin (1.3-4.6) g/dL Urine Color Dark yellow (Yellow) Urine Appearance Cloudy (CLEAR) Urine pH 7 (5-7) Ur Specific Gravit y 1.005 (1.005-1.030) Urine Protein 1+ H (Negative) Urine Glucose (UA) Norm (Normal) Urine Ketones Negative (Negative) Urine Occult Blood 3+ H (Negative) Urine Nitrate Negative (Negative) Urine Bilirubin Neg (NEGATIVE) Urine Urobilinogen 1 H (Negative) mg/dL Ur Leukocyte Debora ase 2+ H (Negative) Urine RBC 40-50 H (0-2) /hpf Urine WBC Too numerous to c nt H (0-5) /hpf Ur Squamous Epith Cells None (0-5) Urine Bacteria 1+ H (NONE) Ethyl Alcohol 76 H (0-10) mg/dL Influenza Type A A g (Negative) POC Influenza B Ag (Negative) 07/19/19 Range/Units 22:29 WBC (4.0-10.0) 10^3/ uL RBC (4.1-5.3) 10^6/u L Hgb (11.7-16.6) g/dL Hct (42.0-52.0) % MCV (80-94) fL MCH (28.0-34.0) pg MCHC (30.0-36.0) g/dL RDW (12.1-15.1) % Plt Count (130-400) 10^3/c mm MPV (7.4-10.4) fL Neut % (Auto) % Lymph % (Auto) % [place] % (Auto) % Eos % (Auto) % Baso % (Auto) % Neut # (Auto) (1.8-7.7) 10^3/u L Lymph # (Auto) (0.8-4.8) 10^3/u L [place] # (Auto) (0.2-0.9) 10^3/u L Eos # (Auto) (0.0-0.8) 10^3/u L Baso # (Auto) (0.0-0.1) 10^3/u L Nucleated RBC % (a uto) % Nucleated RBCs # /100WBC Specimen Type Arterial Sample Site Radial, right ABG pH 7.48 H (7.35-7.45) ABG pCO2 36.2 (35-45) mmHg ABG pO2 73.0 L (80.0-100.0) mmH g ABG HCO3 27.2 H (22-26) mmol/L ABG Base Excess 3.8 H (-2.0-2.0) mmol/ L Ancelmo Test Pos Hematocrit 44.2 (42-52) % O2 Delivery Device Nc O2 Liters/Min 2.0 % Cnc Operator Programmer ID [email or web address] Sodium (136-145) mmol/L Potassium (3.5-5.1) mmol/L Chloride (98-107) mmol/L Carbon Dioxide (22-29) mmol/L Anion Gap (5-19) BUN (8-23) mg/dL Creatinine (0.7-1.2) mg/dL Glucose (65-115) mg/dL Lactate (0.5-2.2) mmol/L Calcium (8.5-10.5) mg/dL Magnesium (1.7-2.3) mg/dL Total Bilirubin (0.15-1.2) mg/dL AST (0-40) U/L ALT (0-41) U/L Alkaline Phosphata se (40-130) IU/L Creatine Kinase (39-308) U/L CK-MB (CK-2) (0-10.4) ng/mL CK-MB (CK-2) Rel I ndex (0.0-5.3) % Troponin T Baselin e (0-15) ng/mL Troponin T 120 Min [place] (0-15) ng/mL Delta Troponin T (0-10) ABS# Total Protein (6.6-8.7) g/dL Albumin (3.5-5.2) g/dL Globulin (1.3-4.6) g/dL Urine Color (Yellow) Urine Appearance (CLEAR) Urine pH (5-7) Ur Specific Gravit y (1.005-1.030) Urine Protein (Negative) Urine Glucose (UA) (Normal) Urine Ketones (Negative) Urine Occult Blood (Negative) Urine Nitrate (Negative) Urine Bilirubin (NEGATIVE) Urine Urobilinogen (Negative) mg/dL Ur Leukocyte Debora ase (Negative) Urine RBC (0-2) /hpf Urine WBC (0-5) /hpf Ur Squamous Epith Cells (0-5) Urine Bacteria (NONE) Ethyl Alcohol (0-10) mg/dL Influenza Type A A g (Negative) POC Influenza B Ag (Negative) Discharge Plan Discharge Patient Disposition: Admitted As Inpatient Admit Provider: Alonso Cotto Clinical Impression: Acute exacerbation of chronic obstructive airways disease, Acute UTI, Elevated troponin, Acute hypokalemia Condition: Stable Referrals: Corrine Rainey MD [Primary Care Provider] - Coding Level of Care Code ED Security Alarm Installer for [facility] [place]
[2019-07-19 19:55] LABS: Basophils % 0.2 %; Eosinophils % 0.2 %; Hematocrit 39.3 % (42.0-52.0); Hemoglobin 13.7 g/dL (11.7-16.6); Lymphocytes # 1.7 10^3/uL (0.8-4.8); Lymphocytes % 15.8 %; Mean Corpuscular HGB Conc 34.9 g/dL (30.0-36.0); Mean Corpuscular Hemoglobin 29.3 pg (28.0-34.0); Mean Corpuscular Volume 84.2 fL (80-94); Mean Platelet Volume 10.4 fL (7.4-10.4); Monocytes # 1.4 10^3/uL (0.2-0.9); Neutrophils # 7.5 10^3/uL (1.8-7.7); Nucleated Red Blood Cells % 0 %; Platelet Count 182 10^3/cmm (130-400); Red Blood Count 4.67 10^6/uL (4.1-5.3); Red Cell Distribution Width 15.1 % (12.1-15.1); White Blood Count 10.7 10^3/uL (4.0-10.0)
[2019-07-19] MEDS: acetaminophen 500 mg Tablet 1000 MG PO (19:58)
[2019-07-19] MEDS: sodium chloride 0.9% 1,000 ML 999 ML IV (19:59)
[2019-07-19 20:19] LABS: Lactate (Lactic Acid level) 1.8 mmol/L (0.5-2.2)
[2019-07-19 20:21] LABS: Troponin(5th) Baseline 39 ng/mL (0-15)
[2019-07-19 20:24] LABS: Influenza A by IFA Negative (Negative); Influenza B by IFA Negative (Negative)
[2019-07-19 20:50] LABS: Add Urine Microscopic? YES; Bilirubin Urine Neg (NEGATIVE); Blood Urine 3+ (Negative); Glucose Urine UA Norm (Normal); Ketones Urine Negative (Negative); Leukocyte Esterase Urine 2+ (Negative); Nitrate Urine Negative (Negative); Protein Urine 1+ (Negative); Specific Gravity, Urine 1.005 (1.005-1.030); Urine Appearance Cloudy (CLEAR); Urine Color Dark Yellow (Yellow); Urobilinogen Urine 1 mg/dL (Negative); pH Urine 7 (5-7)
[2019-07-19 20:51] LABS: Add Urine Culture? Yes; Bacteria Urine 1+; RBC Urine 40-50 /hpf (0-2); WBC Urine TOO NUMEROUS TO CNT /hpf (0-5)
[2019-07-19 20:57] LABS: Alanine Aminotransferase 42 U/L (0-41); Albumin Level 3.3 g/dL (3.5-5.2); Alkaline Phosphatase 97 IU/L (40-130); Anion Gap 18.5 (5-19); Aspartate Amino Transferase 60 U/L (0-40); Blood Urea Nitrogen 19 mg/dL (8-23); Calcium 9.6 mg/dL (8.5-10.5); Carbon Dioxide 26 mmol/L (22-29); Chloride 89 mmol/L (98-107); Globulin 3.5 g/dL (1.3-4.6); Glucose 119 mg/dL (65-115); Sodium 131 mmol/L (136-145); Total Bilirubin 0.5 mg/dL (0.15-1.2); Total Protein 6.8 g/dL (6.6-8.7)
[2019-07-19 21:04] LABS: Potassium 2.5 mmol/L (3.5-5.1)
--- NOTE | 2019-07-19 21:19 | PC.NURSE ---
EKG done at 2116 and shown to ER Physician Locomotive Switch Operator. Patient informed me that he beginning to have trouble breathing again. I informed the charge nurse and PA. PA said to put the patient on 2l of oxygen via nasal cannula. PA is currently at bedside.
[2019-07-19 21:24] LABS: Creatine Phosphokinase 282 U/L (39-308)
[2019-07-19 21:25] VITALS: BP 139/82; PULSE 90; RESP 19; TEMP 36.8; O2SAT 92
[2019-07-19 21:30] VITALS: BP 130/72; PULSE 85; RESP 20; O2SAT 93
--- NOTE | 2019-07-19 21:38 | ECG_ITS ---
Measurements Intervals [place] Rate: 82 P: MA: 0 QRS: 33 QRSD: 99 T: 47 QT: 375 QTc: 440 ATRIAL FIBRILLATION ABNORMAL RHYTHM ECG Compared to ECG 06/05/2019 02:11:03 No significant changes Electronically Signed On 07-19-2019 22:19:56 TELEPHONE OPERATORS SUPERVISOR by Dionne Stark M.D. [id number]
[2019-07-19 21:48] LABS: Magnesium 2.1 mg/dL (1.7-2.3)
[2019-07-19 21:55] LABS: Troponin 5 2HR 31.68 ng/mL (0-15)
[2019-07-19 21:59] LABS: Troponin 5 2HR Delta -7.32 ABS# (0-10)
[2019-07-19 22:00] VITALS: BP 144/90; PULSE 94; RESP 21; O2SAT 93
[2019-07-19 22:13] LABS: Alcohol Level 76 mg/dL (0-10)
[2019-07-19 22:25] LABS: CKMB 4.2 ng/mL (0-10.4)
[2019-07-19 22:30] VITALS: BP 154/88; PULSE 91; RESP 22; O2SAT 94
[2019-07-19 22:44] LABS: ABG PCO2 36.2 mmHg (35-45); ABG PH Result 7.48 (7.35-7.45); Arterial Blood Gas Hematocrit 44.2 % (42-52); Base Excess ABG 3.8 mmol/L (-2.0-2.0); Blood Gas Allen Test Pos; Blood Gas Sample Site Radial, right; Blood Gas Sample Type Arterial; HCO3 ABG 27.2 mmol/L (22-26); Oxygen Device NC
[2019-07-19 23:00] VITALS: BP 138/76; PULSE 83; RESP 17; O2SAT 94
--- NOTE | 2019-07-19 23:43 | PM.HP ---
Providers/Chief Complaint Primary Care Provider: Corrine Rainey MD Chief Complaint: resp distress History of Present Illness Damien Stringer is a 74 year old male with a past medical history of COPD not oxygen dependent, alcohol dependence, atrial fibrillation on Eliquis, history of severe depression and suicide attempt in the past, history of retinal detachment, hypertension, hyperlipidemia, GERD who presents to the emergency room due to cough, shortness of breath, fevers, chills for the past week. Patient states over the over the past week he has felt more short of breath with exertion, short of breath less than 100 feet, patient does state that what limits him more is his knee pain bilaterally. But nonetheless he has a productive cough, white sputum, subjective fevers, chills. He has been using his inhaler therapy more frequently for shortness of breath. Denies orthopnea. Denies paroxysmal nocturnal dyspnea. Patient recently was on antibiotics for urinary tract infection. Does report dysuria, hematuria, has a history of nephrolithiasis with lithotripsy in the past, denies passing kidney stone at this time, denies flank pain, denies CVA tenderness. Patient also reports substernal chest pain, sharp, nonradiating, lasting a few seconds, dull-like, not associate with shortness of breath, no lightheaded, no dizziness, no diaphoresis, patient had a negative stress test February 2019. Patient does state that the chest pain has been coming more frequently in the last few days. Patient denies feeling down, depressed, sad, denies suicidal ideation, denies homicidal ideation. Patient states that his last drink was this morning at 8 AM, had peppermint schnapps, usually drinks more than 3-4 drinks a day, has eye-roller skate repairer's, no blacking out, no alcohol withdrawal seizures, no history of delirium tremens, currently denies anxiety, denies chest palpitations, denies tremor, denies visual or auditory or tactile hallucinations. Review of Systems Const: Reports: fever and chills; Denies: fatigue or malaise Eyes: Denies: change in vision or blurry vision ENMT: Denies: nasal congestion Card: Reports: chest pain; Denies: palpitations, irregular heart rhythm, edema, lightheadedness, syncope or pre-syncope Resp: Reports: shortness of breath and productive cough; Denies: non-productive cough or wheezing GI: Denies: abdominal pain, nausea, vomiting, vomiting blood, diarrhea, constipation, blood in stool or black tarry stool : Denies: flank pain, difficulty urinating, painful urination or urinary frequency Musc: Denies: neck pain or back pain Skin/Breast: Denies: rash Neuro: Denies: headache, dizziness or vertigo Psych: Denies: anxiety or depression Endo: Denies: excessive urination or excessive thirst Medications/Allergies Allergies Allergy/AdvReac Type Severity Reaction Status Date / Time No Known Allergies Allergy Verified 06/20/19 14:52 Additional Medication Information Additional Medication Information: Protonix 40 mg once daily Thiamine 100 mg once daily Flomax 0.4 mg once daily Metoprolol 50 twice daily Eliquis 5 mg twice daily Aspirin 81 mg once daily Cartia 240 mg once daily Hydrochlorothiazide 25 mg once daily Imdur 20 mg twice daily Pravastatin 40 mg once daily Spiriva Chantix Albuterol PFSH Acute PFSH: Statuses (acute, chronic, etc) shown below reflect problem list status as previously entered and may not be historically accurate Medical History (Updated 07/20/19 @ 00:03 by Alonso Cotto MD) Anxiety and depression (Acute) Atrial fibrillation (Acute) Chronic anticoagulation (Acute) COPD (chronic obstructive pulmonary disease) (Acute) Hyperlipidemia (Acute) Hypertension (Acute) Surgical History (Updated 07/19/19 @ 23:55 by Alonso Cotto MD) H/O eye surgery (Acute) History of laparotomy (Acute) History of lithotripsy (Acute) History of ureter stent (Acute) Family History (Updated 07/19/19 @ 23:55 by Alonso Cotto MD) Other CAD (coronary artery disease) Social History (Updated 07/19/19 @ 23:56 by Alonso Cotto MD) Smoking and tobacco status: current every day smoker Alcohol intake: current Alcohol intake frequency: 3 or more drinks per day Alcohol type: hard liquor Substance/Drug Use: never Vitals/I&O/Wt Last Vital Signs Temp 98.2 F 07/19/19 21:25 Pulse 83 07/19/19 23:00 Resp 17 07/19/19 23:00 BP 138/76 07/19/19 23:00 Pulse Ox 94 07/19/19 23:00 0207/19/19 07/20/19 14:59 22:59 06:59 Intake Total 1000 / 1000 Balance 1000 / 1000 Weight last 48 hrs Weight 104.326 kg Physical Exam Const: COMMON NORMALS: no apparent distress and oriented x3 GENERAL APPEARANCE: cooperative and comfortable HENMT: COMMON NORMALS: normocephalic HEAD & SCALP: normocephalic Eye: COMMON NORMALS: PERRL, EOMs intact bilaterally and no papilledema GENERAL EYE: normal appearance of both eyes OTHER: Left eye PERRLA Neck/C-Spine: COMMON NORMALS: full ROM, no lymphadenopathy, no JVD and thyroid normal THYROID: thyroid normal Lymph: LYMPHATIC: no lymphadenopathy noted Resp: COMMON NORMALS: normal respiratory effort, no retractions and no use of accessory muscles AUSCULTATION: wheezes Cardio: COMMON NORMALS: no JVD, regular rate, regular rhythm, S1 normal heart sound, S2 normal heart sound, no gallops, no clicks and no murmurs RATE: regular rate RHYTHM: regular rhythm HEART SOUNDS: S1 normal and S2 normal GI: COMMON NORMALS: normal to inspection, nondistended, normoactive bowel sounds, soft to palpation and non-tender INSPECTION: Yes abdominal distension PALPATION: Yes soft Extremity: COMMON NORMALS: normal to inspection, full ROM and no pedal edema Neuro: COMMON NORMALS: oriented x3, CN's II-XII intact bilaterally, moves all extremities and no focal motor deficits Psych: COMMON NORMALS: mental status grossly normal, thought process normal and cooperative THOUGHT PROCESS: normal thought process Data : 07/19/19 19:45 07/19/19 19:45 Micro: Microbiology 07/19/19 19:48 Blood Culture - Preliminary Blood SPECIMEN COLLECTED 07/19/19 19:45 Blood Culture - Preliminary Blood SPECIMEN COLLECTED A&P Assessment and plan (1) Acute respiratory failure with hypoxia: -Acute respiratory failure secondary to COPD exacerbation, possible right lower lobe pneumonia -Patient had a CT angiogram on 03/01/2019 patient chronically has a 1.7 cm anterior mediastinal lymph node, centrilobular emphysema in both lungs, scarring of posterior at both lung bases, some apical pleural thickening -Admit to general medical floors -Solu-Medrol 125, followed by 40 every 8 -Ipratropium every 4, every 2 as needed -Levaquin -Oxygen therapy -Blood cultures Status: Acute Code(s): J96.01 - Acute respiratory failure with hypoxia (2) Acute hypokalemia: Will receive 60 mEq of potassium Status: Acute Code(s): E87.6 - Hypokalemia (3) Elevated troponin: -No active chest pain, no significant ST-T wave changes on EKG -Likely type II NSTEMI from supply demand ischemia -Patient had a negative cardiac stress test on 03/01/2019, last cardiac echocardiogram showed on 03/01/2019 showed an ejection fraction of 65%, no regional wall motion abnormalities Plan: -Trend troponins, monitor for chest pain -Telemetry monitoring Status: Acute Code(s): R79.89 - Other specified abnormal findings of blood chemistry (4) Acute UTI: -History of enterococcus UTIs in the past, sensitive to Levaquin -Levaquin as above, follow you urine culture -We will do renal sonogram Status: Acute Code(s): N39.0 - Urinary tract infection, site not specified (5) Acute exacerbation of chronic obstructive airways disease: Status: Acute Code(s): J44.1 - Chronic obstructive pulmonary disease with (acute) exacerbation (6) Hypertension: Status: Acute Code(s): I10 - Essential (primary) hypertension (7) Chronic anticoagulation: Continue Eliquis Status: Acute Code(s): Z79.01 - terminal make up operator (current) use of anticoagulants (8) Atrial fibrillation: Continue Eliquis, metoprolol, Cartia Status: Acute Code(s): I48.91 - Unspecified atrial fibrillation (9) Hyperlipidemia: Status: Acute Code(s): E78.5 - Hyperlipidemia, unspecified (10) Alcohol dependence: -Last alcohol drink was peppermint schnapps at 8 AM -[facility] protocol -Has transaminitis, will do a liver ultrasound -Denies a history of esophageal varices, hepatic encephalopathy, liver cirrhosis Status: Acute Code(s): F10.20 - Alcohol dependence, uncomplicated (11) Anxiety and depression: Denies feeling down depressed or sad, no suicidal ideation, no homicidal ideation Is not on any medications Status: Acute Code(s): F41.9 - Anxiety disorder, unspecified; F32.9 - Major depressive disorder, single episode, unspecified Attestations Medical Necessity Statement*: Patient requires hospitalization, for acute respiratory failure, inpatient, greater than 2 midnight Coding Level of Care Code Acute Metal Fabrication Supervisor for g Fwd Diagnoses Acute respiratory failure with hypoxia J96.01 Acute hypokalemia E87.6 Elevated troponin R79.89 Acute UTI N39.0 Acute exacerbation of chronic obstructive airways disease J44.1 Hypertension I10 Chronic anticoagulation Z79.01 Atrial fibrillation I48.91 Hyperlipidemia E78.5 Alcohol dependence F10.20 Anxiety and depression F41.9; F32.9
[2019-07-20] VITALS (20 sets, daily range): BP systolic 144–196; BP diastolic 70–95; PULSE 71–100; RESP 16–28; TEMP 36.4–36.7; O2SAT 92–97
[2019-07-20] MEDS: lidocaine 1% INJ 20 mL 5 ML INJECTION (00:12)
--- NOTE | 2019-07-20 01:11 | US_ITS ---
WS: [id number] ABDOMINAL ULTRASOUND HISTORY: 74 years old Male with transminitis/hematuira, recurrent uti COMPARISON: MRI abdomen 01/26/2018 TECHNIQUE: Grayscale and Doppler ultrasound examination of the abdomen. FINDINGS: Pancreas: Obscured by shadowing bowel gas Abdominal aorta and IVC: Included portions not dilated. Liver: Liver measures 16.2 cm cm in length. The right hepatic lobe slightly hyperechoic mass measurin g 4.8 x 5.0 x 5.9 cm, compatible with a known cavernous hemangioma is without significant change. The new hyperechoic 12 x 10 x 11 mm focus is noted in the right hepatic lobe, without definite correspon ding lesion on prior MRI. Previous right hepatic subcapsular cyst measuring 9.6 x 10.4 x 13.5 mm with out significant change. No intrahepatic bile duct dilatation. Gallbladder: Gallbladder wall thickness measures 2.1 mm. No hydrops, stone, sludge, pericholecystic f luid, hydrops, or extra hepatic bile duct dilatation. Left kidney: Left kidney measures 11.4 cm x 6.9 cm x 5.6 cm. No solid or cystic mass, hydronephrosis, or shadowing calculus. Right kidney: Right kidney measures 15.0 cm x 5.9 cm x 4.7 cm. No solid or cystic mass, hydronephrosi s, shadowing calculus. Renomegaly. Spleen: Shadowing bowel gas obscures spleen. US/US abdomen complete* [id number] IMPRESSION: 1. Unchanged right 5.9 cm hepatic cavernous hemangioma. 2. Newly visualized right hepatic 12 mm hyperechoic mass; may be a hemangioma t dionicio other etiologies not excluded. Recommend follow up right upper quadrant ultrasound in 3 months to confirm stability. 3. Unchanged right hepatic cyst. 4. Right renomegaly without mass or hydronephrosis. 5. Obscured pancreas, abdominal aorta, and spleen.
--- NOTE | 2019-07-20 01:38 | ECG_ITS ---
Measurements Intervals [place] Rate: 93 P: OR: 0 QRS: 60 QRSD: 97 T: 59 QT: 367 QTc: 456 ATRIAL FIBRILLATION WITH ABERRANT CONDUCTION OR VENTRICULAR PREMATURE COMPLEXES ABNORMAL RHYTHM ECG Compared to ECG 07/19/2019 21:19:37 Ventricular premature complex(es) now present Aberrant conduction of supraventricular beat(s) now present Electronically Signed On 07-21-2019 0:21:41 COOK APPRENTICE by Dionne Stark M.D. [id number]
[2019-07-20 02:02] LABS: Procalcitonin 1.74 ng/mL (0-0.5); Vitamin B12 601 pg/mL (232-1245)
[2019-07-20 02:12] LABS: Lipase 27 U/L (13-60); Phosphorus 1.3 mg/dL (2.5-4.5)
[2019-07-20 02:35] LABS: Troponin 5 6HR 22.47 ng/L (0-15); Troponin 5 6HR Delta -16.53 ng/L (0-12)
[2019-07-20] MEDS: ipratropium-albuterol 3 mL Neb INHALATION ×6 (04:04→23:12)
[2019-07-20 05:34] LABS: Basophils % 0.2 %; Hematocrit 40.6 % (42.0-52.0); Hemoglobin 13.9 g/dL (11.7-16.6); Lymphocytes # 0.6 10^3/uL (0.8-4.8); Lymphocytes % 11.5 %; Mean Corpuscular HGB Conc 34.2 g/dL (30.0-36.0); Mean Corpuscular Hemoglobin 29.1 pg (28.0-34.0); Mean Corpuscular Volume 84.9 fL (80-94); Monocytes # 0.1 10^3/uL (0.2-0.9); Monocytes % 2.1 %; Neutrophils # 4.5 10^3/uL (1.8-7.7); Neutrophils % 85.3 %; Nucleated Red Blood Cells % 0 %; Platelet Count 194 10^3/cmm (130-400); Red Blood Count 4.78 10^6/uL (4.1-5.3); Red Cell Distribution Width 15.2 % (12.1-15.1); White Blood Count 5.3 10^3/uL (4.0-10.0)
[2019-07-20 05:50] LABS: Alanine Aminotransferase 42 U/L (0-41); Albumin Level 3.4 g/dL (3.5-5.2); Alkaline Phosphatase 105 IU/L (40-130); Anion Gap 15.7 (5-19); Aspartate Amino Transferase 50 U/L (0-40); Blood Urea Nitrogen 19 mg/dL (8-23); Calcium 9.7 mg/dL (8.5-10.5); Carbon Dioxide 28 mmol/L (22-29); Chloride 91 mmol/L (98-107); Globulin 3.5 g/dL (1.3-4.6); Glucose 307 mg/dL (65-115); Magnesium 2.2 mg/dL (1.7-2.3); Phosphorus 1.7 mg/dL (2.5-4.5); Sodium 132 mmol/L (136-145); Total Bilirubin 0.5 mg/dL (0.15-1.2); Total Protein 6.9 g/dL (6.6-8.7)
[2019-07-20 06:06] LABS: Potassium 2.7 mmol/L (3.5-5.1)
[2019-07-20] MEDS: enoxaparin 40 mg/0.4 mL Syringe SUBCUT (06:29)
[2019-07-20] MEDS: potassium chloride premix 40 MEQ/100 ML PREMIX 25 MEQ IV (06:30)
[2019-07-20] MEDS: lidocaine 1% INJ 20 mL 5 ML IV (07:32)
[2019-07-20] MEDS: thiamine 100 mg Tablet PO (10:53)
[2019-07-20] MEDS: atorvastatin 40 mg Tablet PO (10:53)
[2019-07-20] MEDS: metoprolol tartrate 50 mg Tablet PO ×2 (10:53→17:49)
[2019-07-20] MEDS: aspirin 81 mg EC Tablet PO (10:53)
[2019-07-20] MEDS: pantoprazole DR 40 mg Tablet PO (10:53)
[2019-07-20] MEDS: folic acid 1 mg Tablet PO (10:53)
[2019-07-20] MEDS: hydroCHLOROthiazide 25 mg Tablet PO (10:54)
[2019-07-20] MEDS: multivitamin therapeutic Tablet 1 TAB PO (10:54)
[2019-07-20] MEDS: dilTIAZem ER (24HR) 240 mg Capsule PO (10:54)
[2019-07-20] MEDS: apixaban 5 mg Tablet PO ×2 (10:54→17:49)
[2019-07-20] MEDS: tamsulosin 0.4 mg Capsule PO (10:54)
[2019-07-20] MEDS: levofloxacin-dextrose 5 % 750 MG/150 ML PREMIX 150 MG IV (10:55)
[2019-07-20] MEDS: isosorbide mononitrate 20 mg Tablet PO ×2 (11:23→17:49)
--- NOTE | 2019-07-20 11:46 | CT_ITS ---
WS: [id number] CT ABDOMEN PELVIS HISTORY: 74 years old Male with abdominal pain, UTI, hematuria COMPARISON: CT abdomen pelvis with contrast 01/17/2015 TECHNIQUE: 2.[address] images of the abdomen and pelvis with 2-D reformats. DLP: 1891.[address] scans at [facility] use at least one of these dose optimization techniques: automat ed exposure control; mA and/or kV adjustment per patient size (includes targeted exams where dose is matched to clinical indication); or iterative reconstruction. FINDINGS: Bilateral lower lobe and inferior lingular atelectasis and/or consolidation. No pleural or pericardia l effusions. Right and left coronary calcifications and/or stents. Mild cardiomegaly. GE junction and distal esophagus unremarkable. Moderate descending thoracic aorta atherosclerosis. Included ribs int act. Spleen, adrenal glands, pancreas, gallbladder, and liver with right hepatic hyperattenuation hemangio ma and subcapsular cyst are otherwise unremarkable. Right kidney inferior pole 15 mm cyst unchanged. Right renal megaly unchanged. Numerous bilateral renal calculi, right mid kidney 4.5 mm, right inferi or pole 6 mm, left mid and lower renal calculi up to 8 mm are noted. Bilaterally, no hydronephrosis o r hydroureter seen. Asymmetric increased right perinephric fat induration. No peripancreatic, pericho lecystic, or significant left perinephric fat induration. No obvious biliary or pancreatic ductal dil atation. No high attenuation biliary stone. Gaseous distention of the transverse, splenic flexure, and proximal ascending colon is noted. Remaind er of the small bowel and large bowel caliber appear within normal limits. The retrocecal appendix is unremarkable. No appreciable colon wall thickening or adjacent fat induration. No diverticular torres es seen. Urinary bladder, perivesical, perirectal fat planes are unremarkable. Prostate and central vessels un remarkable. Pelvic phleboliths. Bilateral inguinal indirect fat-containing hernias and umbilical fat- containing hernia unchanged. No free air, free fluid, fluid collection. Extensive aortoiliac and femo ral artery atheromatous plaque without evidence of aneurysm. No inguinal, retroperitoneal, or mesente krystina enlarged lymph node or mass. L3 anterolisthesis L4 6 mm and L4 retrolisthesis L5 5.7 mm. L2-L3 th rough L5-S1 vacuum disc. CT/CT kidney stone [id number] IMPRESSION: 1. Bilateral lower lobes multi segmental atelectasis and/or pneumonia. 2. Continued bilateral nephrolithiasis; no evidence of ureterolithiasis, cystol ithiasis, or obstructive uropathy. 3. Asymmetric right perinephric fat induration, nonspecific. Can be associated with chronic medical renal disease or pyelonephritis. 4. Transverse and proximal descending colon distention without discrete transit ion point; correlate for ileus. 5. Cardiomegaly and extensive atherosclerosis. 6. Unchanged right hepatic hemangioma and hepatic cyst.
[2019-07-20] MEDS: bisacodyl 10 mg Supp PR (14:20)
[2019-07-20] MEDS: acetaminophen 325 mg Tablet 650 MG PO (14:23)
--- NOTE | 2019-07-20 14:56 | PC.CHAP ---
Pastoral Care Encounter/Spiritual Assessment Type of Contact [] Declined medical technologist generalist visit [] Patient/Family/Request visit [] Outpatient visit [] Follow-up visit [] Physician referral [] Code/Alert [x] Routine visit [] Staff referral [] Actively dying [] Patient sleeping [] Family support [] [] Out of room [] Palliative care [] [] Receiving care in room [] Pre-surgical visit [] Trauma [] Long length of stay [] ICU visit [] Other: Relational/Emotional Strength [] Patient feels connected with others/family/visitors/staff [] Distress [] Loneliness/isolation [] Abandonment Spirituality of Patient [] Person of Brandi [] Attends Adventism of their Brandi [] Believes in Prayer [] Reads Bible or Muslim materials [] There are Spiritual issues to be addressed Pivot Maker Interventions [x] Prayer [] Active listening [] Non-anxious presence [] Spiritual/emotional support [] Crisis/trauma care [] Spiritual counseling [] Bereavement support [] Provided bereavement packet [] Provided Bible/devotional materials [] Provided toy/stuffed animal, coloring book to patient or family member [] Provided Communion [] Anointing/[place] [] Salvation [] Completed spiritual assessment [] Other: Impact on Illness or Injury [] Angry [] Fearful [] Anxious [] Often cries [] Exhaustion [] Unable to work [] Unable to attend sikhism [] Unable to walk/stand [] Unable to read [] Unable to drive [] Unable to eat/drink [] Unable to sleep [] Unable to be with family [] Patient intubated [] Other: Summary Good spirits Time spent with patient
[2019-07-20] MEDS: polyethylene glycol 3350 Pkt 17 gm PO (17:49)
[2019-07-20 18:51] LABS: Amphetamines Screen Urine Negative (Negative); Barbiturates Screen Urine Negative (Negative); Benzodiazepines Screen Urine Negative (Negative); Cocaine Screen Urine Negative (Negative); Opiate Screen Urine Negative (Negative); PCP Screen Urine Negative (Negative); THC Screen Urine Negative (Negative)
--- NOTE | 2019-07-20 19:13 | P.PN_ITS ---
Subjective Subjective: Interval history: He is feeling better, however, today is bothered by pain in his right side of the abdomen. Breathing is somewhat better. Weaned down to room air. Vitals/I&O/Wt Last Vital Signs Temp 97.9 F 07/20/19 16:00 Pulse 79 07/20/19 16:00 Resp 18 07/20/19 16:00 BP 144/71 07/20/19 16:00 Pulse Ox 94 07/20/19 16:00 07/20/19 07/20/19 07/20/19 06:59 14:59 22:59 Intake Total 840 / 840 240 / 1080 Output Total 525 / 525 450 / 450 Balance -525 / 475 840 / 840 -210 / 630 Weight last 48 hrs Weight 104.326 kg Physical Exam Const: COMMON NORMALS: no apparent distress and oriented x3 HENMT: COMMON NORMALS: oropharynx normal Eye: OTHER: Glasses stented on the right sided chronic right eye blindness. Neck/C-Spine: COMMON NORMALS: no JVD Resp: COMMON NORMALS: normal respiratory effort and clear to auscultation bilaterally AUSCULTATION: clear to auscultation bilaterally Cardio: COMMON NORMALS: no JVD, regular rhythm, S1 normal heart sound, S2 normal heart sound and no murmurs RHYTHM: regular rhythm HEART SOUNDS: S1 normal and S2 normal GI: COMMON NORMALS: normal to inspection, nondistended, normoactive bowel sounds and soft to palpation PALPATION: Yes soft and Yes tender Details: RLQ Extremity: COMMON NORMALS: no joint enlargement and no pedal edema Neuro: COMMON NORMALS: oriented x3 and moves all extremities Skin: COMMON NORMALS: no rashes or lesions noted GENERAL SKIN EXAM: no rashes or lesions noted Data : 07/20/19 05:05 07/20/19 05:05 Micro: Microbiology 07/19/19 19:48 Blood Culture - Preliminary Blood SPECIMEN COLLECTED 07/19/19 19:45 Blood Culture - Preliminary Blood SPECIMEN COLLECTED A&P Assessment and plan (1) Acute UTI: Tender right lower quadrant on examination. Requested for assessment by renal CT due to right kidney enlargement on ultrasound, hematuria. Complicated urinary tract infection with pyelonephritis of right kidney. Bilateral nephrolithiasis, without signs of obstructive uropathy. Continue IV quinolone at this time. Status: Acute Code(s): N39.0 - Urinary tract infection, site not specified (2) Acute respiratory failure with hypoxia: Improving. Will switch to oral steroid. Continue antibiotic. Breathing treatments. Oxygen support as needed. COPD exacerbation. CT angiogram on 03/01/2019 - chronic 1.7 cm anterior mediastinal lymph node, centrilobular emphysema in both lungs, scarring of posterior at both lung bases, some apical pleural thickening Status: Acute Code(s): J96.01 - Acute respiratory failure with hypoxia (3) Acute exacerbation of chronic obstructive airways disease: As above Status: Acute Code(s): J44.1 - Chronic obstructive pulmonary disease with (acute) exacerbation (4) Acute hypokalemia: Received replacement. Magnesium is not low. Status: Acute Code(s): E87.6 - Hypokalemia (5) Elevated troponin: Suspected mismatch and demand supply. He has no chest pain. Status: Acute Code(s): R79.89 - Other specified abnormal findings of blood chemistry (6) Hypertension: Blood pressures variable. Today possibly worse somewhat due to abdominal pain. Continue cardiac diet, Cardizem, HCTZ, Imdur, metoprolol, Flomax. Status: Acute Code(s): I10 - Essential (primary) hypertension (7) Chronic anticoagulation: Continue Eliquis Status: Acute Code(s): Z79.01 - terminal operator (current) use of anticoagulants (8) Atrial fibrillation: Continue Eliquis, metoprolol, Cardizem Status: Acute Code(s): I48.91 - Unspecified atrial fibrillation (9) Hyperlipidemia: Status: Acute Code(s): E78.5 - Hyperlipidemia, unspecified (10) Alcohol dependence: Monitor for signs of withdrawal. Liver with noted 12 mm hyperechoic mass, suspected hematoma, however, other etiologies cannot be excluded. Recommended follow-up ultrasound in 3 months. Status: Acute Code(s): F10.20 - Alcohol dependence, uncomplicated (11) Anxiety and depression: No suicidal ideation, or homicidal ideation Status: Acute Code(s): F41.9 - Anxiety disorder, unspecified; F32.9 - Major depressive disorder, single episode, unspecified Attestations Medical Necessity Statement*: Continue admission for assessment management of complicated UTI with right-sided pyelonephritis, COPD exacerbation. Coding Level of Care Code Acute Supplier Engineer for Chg Fwd Diagnoses Acute UTI N39.0 Acute respiratory failure with hypoxia J96.01 Acute exacerbation of chronic obstructive airways disease J44.1 Acute hypokalemia E87.6 Elevated troponin R79.89 Hypertension I10 Chronic anticoagulation Z79.01 Atrial fibrillation I48.91 Hyperlipidemia E78.5 Alcohol dependence F10.20 Anxiety and depression F41.9; F32.9
[2019-07-21] VITALS (17 sets, daily range): BP systolic 149–176; BP diastolic 69–99; PULSE 73–98; RESP 16–24; TEMP 36.1–36.7; O2SAT 93–96
[2019-07-21] MEDS: ipratropium-albuterol 3 mL Neb INHALATION ×7 (03:11→23:31)
[2019-07-21] MEDS: enoxaparin 40 mg/0.4 mL Syringe SUBCUT (06:02)
[2019-07-21 06:49] LABS: Basophils % 0.1 %; Hematocrit 38.5 % (42.0-52.0); Hemoglobin 13.5 g/dL (11.7-16.6); Lymphocytes # 0.8 10^3/uL (0.8-4.8); Lymphocytes % 5.1 %; Mean Corpuscular HGB Conc 35.1 g/dL (30.0-36.0); Mean Corpuscular Hemoglobin 29.5 pg (28.0-34.0); Mean Corpuscular Volume 84.1 fL (80-94); Mean Platelet Volume 11.3 fL (7.4-10.4); Monocytes # 0.5 10^3/uL (0.2-0.9); Monocytes % 3.1 %; Neutrophils # 15.1 10^3/uL (1.8-7.7); Nucleated Red Blood Cells % 0 %; Platelet Count 235 10^3/cmm (130-400); Red Blood Count 4.58 10^6/uL (4.1-5.3); Red Cell Distribution Width 15.3 % (12.1-15.1); White Blood Count 16.6 10^3/uL (4.0-10.0)
[2019-07-21 07:07] LABS: Alanine Aminotransferase 84 U/L (0-41); Albumin Level 3.3 g/dL (3.5-5.2); Alkaline Phosphatase 103 IU/L (40-130); Anion Gap 16.7 (5-19); Aspartate Amino Transferase 75 U/L (0-40); Blood Urea Nitrogen 22 mg/dL (8-23); Calcium 10.2 mg/dL (8.5-10.5); Carbon Dioxide 26 mmol/L (22-29); Chloride 94 mmol/L (98-107); Globulin 3.4 g/dL (1.3-4.6); Glucose 201 mg/dL (65-115); Magnesium 2.1 mg/dL (1.7-2.3); Phosphorus 1.4 mg/dL (2.5-4.5); Sodium 134 mmol/L (136-145); Total Bilirubin 0.4 mg/dL (0.15-1.2); Total Protein 6.7 g/dL (6.6-8.7)
[2019-07-21 07:17] LABS: Potassium 2.7 mmol/L (3.5-5.1)
[2019-07-21] MEDS: predniSONE 20 mg Tablet 40 MG PO (08:27)
[2019-07-21] MEDS: isosorbide mononitrate 20 mg Tablet PO ×2 (08:27→22:04)
[2019-07-21] MEDS: thiamine 100 mg Tablet PO (08:27)
[2019-07-21] MEDS: atorvastatin 40 mg Tablet PO (08:27)
[2019-07-21] MEDS: polyethylene glycol 3350 Pkt 17 gm PO ×2 (08:27→22:05)
[2019-07-21] MEDS: metoprolol tartrate 50 mg Tablet PO ×2 (08:27→22:04)
[2019-07-21] MEDS: tamsulosin 0.4 mg Capsule PO (08:28)
[2019-07-21] MEDS: hydroCHLOROthiazide 25 mg Tablet PO (08:28)
[2019-07-21] MEDS: pantoprazole DR 40 mg Tablet PO (08:28)
[2019-07-21] MEDS: apixaban 5 mg Tablet PO ×2 (08:28→22:05)
[2019-07-21] MEDS: aspirin 81 mg EC Tablet PO (08:28)
[2019-07-21] MEDS: folic acid 1 mg Tablet PO (08:28)
[2019-07-21] MEDS: multivitamin therapeutic Tablet 1 TAB PO (08:28)
[2019-07-21] MEDS: dilTIAZem ER (24HR) 240 mg Capsule PO (08:28)
--- NOTE | 2019-07-21 14:47 | PC.CHAP ---
Pastoral Care Encounter/Spiritual Assessment Type of Contact [] Declined die trouble shooter visit [] Patient/Family/Request visit [] Outpatient visit [] Follow-up visit [] Physician referral [] Code/Alert [x] Routine visit [] Staff referral [] Actively dying [] Patient sleeping [] Family support [] [] Out of room [] Palliative care [] [] Receiving care in room [] Pre-surgical visit [] Trauma [] Long length of stay [] ICU visit [] Other: Relational/Emotional Strength [] Patient feels connected with others/family/visitors/staff [] Distress [] Loneliness/isolation [] Abandonment Spirituality of Patient [x] Person of Brandi [x] Attends Advent of their Brandi [x] Believes in Prayer [] Reads Bible or Lutheran materials [] There are Spiritual issues to be addressed Bellman Captain Interventions [x] Prayer [x] Active listening [x] Non-anxious presence [x] Spiritual/emotional support [] Crisis/trauma care [] Spiritual counseling [] Bereavement support [] Provided bereavement packet [] Provided Bible/devotional materials [] Provided toy/stuffed animal, coloring book to patient or family member [] Provided Communion [] Anointing/[place] [] Salvation [x] Completed spiritual assessment [] Other: Impact on Illness or Injury [] Angry [] Fearful [] Anxious [] Often cries [] Exhaustion [] Unable to work [] Unable to attend orthodoxy [] Unable to walk/stand [] Unable to read [] Unable to drive [] Unable to eat/drink [] Unable to sleep [] Unable to be with family [] Patient intubated [] Other: Summary patient tired Time spent with patient 5 min
[2019-07-21] MEDS: capsaicin 0.025% cream 60 gm 1 APPLIC TOPICAL ×2 (17:26→23:16)
--- NOTE | 2019-07-21 19:54 | P.PN_ITS ---
Subjective Subjective: Interval history: Having leg cramps. Breathing is comfortable. Vitals/I&O/Wt Last Vital Signs Temp 98.0 F 07/21/19 15:45 Pulse 81 07/21/19 16:08 Resp 17 07/21/19 16:05 BP 153/93 07/21/19 15:45 Pulse Ox 93 07/21/19 16:05 07/21/19 07/21/19 07/21/19 06:59 14:59 22:59 Intake Total 250 / 1530 1200 / 1200 480 / 1680 Output Total 550 / 550 300 / 850 Balance 250 / 1080 650 / 650 180 / 830 Physical Exam Const: COMMON NORMALS: no apparent distress and oriented x3 HENMT: COMMON NORMALS: oropharynx normal Eye: OTHER: Glasses stented on the right sided chronic right eye blindness. Neck/C-Spine: COMMON NORMALS: no JVD Resp: COMMON NORMALS: normal respiratory effort and clear to auscultation bilaterally AUSCULTATION: clear to auscultation bilaterally Cardio: COMMON NORMALS: no JVD, regular rhythm, S1 normal heart sound, S2 normal heart sound and no murmurs RHYTHM: regular rhythm HEART SOUNDS: S1 normal and S2 normal GI: COMMON NORMALS: normal to inspection, nondistended, normoactive bowel so unds and soft to palpation PALPATION: Yes soft and Yes tender Extremity: COMMON NORMALS: no joint enlargement and no pedal edema Neuro: COMMON NORMALS: oriented x3 and moves all extremities Skin: COMMON NORMALS: no rashes or lesions noted GENERAL SKIN EXAM: no rashes or lesions noted Data : 07/21/19 06:17 07/21/19 06:17 Micro: Microbiology 07/19/19 20:14 Urine Culture - Preliminary Urine,Clean Catch Strep species, gamma-hemolytic 07/19/19 19:48 Blood Culture - Preliminary Blood NEGATIVE TO DATE 07/19/19 19:45 Blood Culture - Preliminary Blood NEGATIVE TO DATE A&P Assessment and plan (1) Acute UTI: Pending urine culture. History of enterococcus. Continue vancomycin at this time. Complicated urinary tract infection with pyelonephritis of right kidney. Bilateral nephrolithiasis, without signs of obstructive uropathy. Status: Acute Code(s): N39.0 - Urinary tract infection, site not specified (2) Acute respiratory failure with hypoxia: Continue prednisone, breathing treatments. Oxygen support as needed. COPD exacerbation. CT angiogram on 03/01/2019 - chronic 1.7 cm anterior mediastinal lymph node, centrilobular emphysema in both lungs, scarring of posterior at both lung bases, some apical pleural thickening Status: Acute Code(s): J96.01 - Acute respiratory failure with hypoxia (3) Acute exacerbation of chronic obstructive airways disease: As above Status: Acute Code(s): J44.1 - Chronic obstructive pulmonary disease with (acute) exacerbation (4) Acute hypokalemia: Replace. Magnesium is not low. Status: Acute Code(s): E87.6 - Hypokalemia (5) Elevated troponin: Suspected mismatch and demand supply. He has no chest pain. Status: Acute Code(s): R79.89 - Other specified abnormal findings of blood chemistry (6) Hypertension: Blood pressure is better today. Continue cardiac diet, Cardizem, HCTZ, Imdur, metoprolol, Flomax. 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 Liver with noted 12 mm hyperechoic mass, suspected hematoma, however, other etiologies cannot be excluded. Recommended follow-up ultrasound in 3 months. Status: Acute Code(s): F10.20 - Alcohol dependence, uncomplicated (11) Anxiety and depression: No suicidal ideation, or homicidal ideation Status: Acute Code(s): F41.9 - Anxiety disorder, unspecified; F32.9 - Major depressive disorder, single episode, unspecified Additional A&P Information Hypophosphatemia: Received K-Phos for concomitant hyperkalemia Leg cramps: Suspected secondary to hypokalemia: Replace electrolyte. He is concerned may have restless leg syndrome as he has been bothered by these for a while. For now we will treat symptomatically with carisoprodol as needed for symptomatic relief of cramps. Attestations Medical Necessity Statement*: Continue admission for assessment management of complicated urinary tract infection, pyelonephritis, severe electrolyte deficiencies. Coding Level of Care Code Acute Poured Pipe Maker for Chg Fwd Diagnoses Acute UTI N39.0 Acute respiratory failure with hypoxia J96.01 Acute exacerbation of chronic obstructive airways disease J44.1 Acute hypokalemia E87.6 Elevated troponin R79.89 Hypertension I10 Chronic anticoagulation Z79.01 Atrial fibrillation I48.91 Hyperlipidemia E78.5 Alcohol dependence F10.20 Anxiety and depression F41.9; F32.9
[2019-07-22] VITALS (15 sets, daily range): BP systolic 98–153; BP diastolic 65–87; PULSE 67–88; RESP 16–24; TEMP 36.3–36.9; O2SAT 92–98
[2019-07-22] MEDS: ipratropium-albuterol 3 mL Neb INHALATION ×5 (03:16→20:07)
[2019-07-22] MEDS: capsaicin 0.025% cream 60 gm 1 APPLIC TOPICAL ×2 (05:35→22:03)
[2019-07-22] MEDS: enoxaparin 40 mg/0.4 mL Syringe SUBCUT (05:36)
[2019-07-22 05:57] LABS: Basophils % 0.1 %; Hemoglobin 13.5 g/dL (11.7-16.6); Lymphocytes # 1.9 10^3/uL (0.8-4.8); Lymphocytes % 9.3 %; Mean Corpuscular HGB Conc 33.8 g/dL (30.0-36.0); Mean Corpuscular Hemoglobin 28.9 pg (28.0-34.0); Mean Corpuscular Volume 85.7 fL (80-94); Mean Platelet Volume 10.8 fL (7.4-10.4); Monocytes # 1.4 10^3/uL (0.2-0.9); Monocytes % 6.9 %; Nucleated Red Blood Cells % 0 %; Platelet Count 304 10^3/cmm (130-400); Red Blood Count 4.67 10^6/uL (4.1-5.3); Red Cell Distribution Width 15.7 % (12.1-15.1); White Blood Count 20.8 10^3/uL (4.0-10.0)
[2019-07-22 06:21] LABS: Alanine Aminotransferase 101 U/L (0-41); Alkaline Phosphatase 98 IU/L (40-130); Anion Gap 17.5 (5-19); Aspartate Amino Transferase 65 U/L (0-40); Blood Urea Nitrogen 21 mg/dL (8-23); Calcium 10.3 mg/dL (8.5-10.5); Carbon Dioxide 27 mmol/L (22-29); Chloride 94 mmol/L (98-107); Globulin 3.2 g/dL (1.3-4.6); Glucose 128 mg/dL (65-115); Phosphorus 2.4 mg/dL (2.5-4.5); Potassium 3.5 mmol/L (3.5-5.1); Sodium 135 mmol/L (136-145); Total Bilirubin 0.4 mg/dL (0.15-1.2); Total Protein 6.2 g/dL (6.6-8.7)
[2019-07-22] MEDS: predniSONE 20 mg Tablet 40 MG PO (08:38)
[2019-07-22] MEDS: multivitamin therapeutic Tablet 1 TAB PO (08:38)
[2019-07-22] MEDS: metoprolol tartrate 50 mg Tablet PO ×2 (08:39→17:34)
[2019-07-22] MEDS: tamsulosin 0.4 mg Capsule PO (08:39)
[2019-07-22] MEDS: pantoprazole DR 40 mg Tablet PO (08:39)
[2019-07-22] MEDS: thiamine 100 mg Tablet PO (08:39)
[2019-07-22] MEDS: isosorbide mononitrate 20 mg Tablet PO ×2 (08:39→17:34)
[2019-07-22] MEDS: aspirin 81 mg EC Tablet PO (08:40)
[2019-07-22] MEDS: apixaban 5 mg Tablet PO ×2 (08:40→17:34)
[2019-07-22] MEDS: folic acid 1 mg Tablet PO (08:40)
[2019-07-22] MEDS: atorvastatin 40 mg Tablet PO (08:41)
[2019-07-22] MEDS: hydroCHLOROthiazide 25 mg Tablet PO (08:41)
[2019-07-22] MEDS: dilTIAZem ER (24HR) 240 mg Capsule PO (08:41)
[2019-07-22] MEDS: polyethylene glycol 3350 Pkt 17 gm PO ×2 (08:44→17:34)
[2019-07-22] MEDS: levofloxacin-dextrose 5 % 750 MG/150 ML PREMIX 150 MG IV (08:45)
--- NOTE | 2019-07-22 11:45 | PC.RESP ---
Patient given information on Smoking Cessation and Pulmonary Rehab.
[2019-07-22 11:55] LABS: Vancomycin Trough 12.5 ug/mL (10-15)
--- NOTE | 2019-07-22 19:25 | P.PN_ITS ---
Subjective Subjective: Interval history: Today he is feeling slightly worse than yesterday in terms of his breathing. His lower extremity cramps have resolved. Vitals/I&O/Wt Last Vital Signs Temp 98.5 F 07/22/19 16:00 Pulse 79 07/22/19 16:00 Resp 16 07/22/19 16:00 BP 149/80 07/22/19 16:00 Pulse Ox 94 07/22/19 16:00 07/22/19 07/22/19 07/22/19 06:59 14:59 22:59 Intake Total 250 / 2430 1460 / 1460 720 / 2180 Output Total 175 / 1025 250 / 250 Balance 75 / 1405 1210 / 1210 720 / 1930 Weight last 48 hrs Weight 106.764 kg Physical Exam Const: COMMON NORMALS: no apparent distress and oriented x3 HENMT: COMMON NORMALS: oropharynx normal Eye: OTHER: He is comfortable at rest. Speaking full sentences on room air. Glasses tinted on the right sided chronic right eye blindness. Neck/C-Spine: COMMON NORMALS: no JVD Resp: COMMON NORMALS: normal respiratory effort AUSCULTATION: wheezes (Mild wheezes bilaterally, worse on the left) Cardio: COMMON NORMALS: no JVD, regular rhythm, S1 normal heart sound, S2 normal heart sound and no murmurs RHYTHM: regular rhythm HEART SOUNDS: S1 normal and S2 normal GI: COMMON NORMALS: normal to inspection, nondistended, normoactive bowel salty nds and soft to palpation PALPATION: Yes soft and Yes tender Extremity: COMMON NORMALS: no joint enlargement and no pedal edema Neuro: COMMON NORMALS: oriented x3 and moves all extremities Skin: COMMON NORMALS: no rashes or lesions noted GENERAL SKIN EXAM: no rashes or lesions noted Data : 07/22/19 05:41 07/22/19 05:41 Micro: Microbiology 07/19/19 20:14 Urine Culture - Preliminary Urine,Clean Catch Enterococcus faecalis A&P Assessment and plan (1) Acute UTI: Enterococcus UTI. Continue vancomycin at this time. Complicated urinary tract infection with pyelonephritis of right kidney. Bilateral nephrolithiasis, without signs of obstructive uropathy. Status: Acute Code(s): N39.0 - Urinary tract infection, site not specified (2) Acute respiratory failure with hypoxia: He is somewhat worse today, subjectively, an also with wheezing on exam. With concern for pneumonia on imaging will expand his antibiotic coverage with Levaquin. Continue vancomycin. Continue prednisone, breathing treatments. Oxygen support as needed. COPD with exacerbation. CT angiogram on 03/01/2019 - chronic 1.7 cm anterior mediastinal lymph node, centrilobular emphysema in both lungs, scarring of posterior at both lung bases, some apical pleural thickening Status: Acute Code(s): J96.01 - Acute respiratory failure with hypoxia (3) Acute exacerbation of chronic obstructive airways disease: As above Status: Acute Code(s): J44.1 - Chronic obstructive pulmonary disease with (acute) exacerbation (4) Acute hypokalemia: Replaced. Given additional replacement today. Magnesium is not low. Status: Acute Code(s): E87.6 - Hypokalemia (5) Elevated troponin: Suspected mismatch and demand supply. He has no chest pain. Status: Acute Code(s): R79.89 - Other specified abnormal findings of blood chemistry (6) Hypertension: Blood pressure is better. Continue cardiac diet, Cardizem, HCTZ, Imdur, metoprolol, Flomax. 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 Liver with noted 12 mm hyperechoic mass, suspected hematoma, however, other etiologies cannot be excluded. Recommended follow-up ultrasound in 3 months. Status: Acute Code(s): F10.20 - Alcohol dependence, uncomplicated (11) Anxiety and depression: No suicidal ideation, or homicidal ideation Status: Acute Code(s): F41.9 - Anxiety disorder, unspecified; F32.9 - Major depressive disorder, single episode, unspecified Additional A&P Information Hypophosphatemia: Dr. parrish. Encourage oral intake. Leg cramps: Resolved after improvement in hypokalemia. Carisoprodol as needed for symptomatic relief of cramps. Attestations Medical Necessity Statement*: Continue admission for assessment management of worsening of COPD exacerbation with pneumonia. Coding Level of Care Code Acute Psychology Professor for Chg Fwd Diagnoses Acute UTI N39.0 Acute respiratory failure with hypoxia J96.01 Acute exacerbation of chronic obstructive airways disease J44.1 Acute hypokalemia E87.6 Elevated troponin R79.89 Hypertension I10 Chronic anticoagulation Z79.01 Atrial fibrillation I48.91 Hyperlipidemia E78.5 Alcohol dependence F10.20 Anxiety and depression F41.9; F32.9
[2019-07-23] VITALS (10 sets, daily range): BP systolic 121–167; BP diastolic 69–90; PULSE 72–91; RESP 18–28; TEMP 36.5–36.7; O2SAT 92–96
[2019-07-23] MEDS: ondansetron 2 mg/ML SDV 2 mL 4 MG IVP (05:28)
[2019-07-23] MEDS: enoxaparin 40 mg/0.4 mL Syringe SUBCUT (05:28)
[2019-07-23 06:36] LABS: Basophils % 0.2 %; Eosinophils # 0.1 10^3/uL (0.0-0.8); Eosinophils % 0.5 %; Hematocrit 41.2 % (42.0-52.0); Lymphocytes # 2.8 10^3/uL (0.8-4.8); Lymphocytes % 14.8 %; Mean Corpuscular Volume 88.2 fL (80-94); Mean Platelet Volume 10.6 fL (7.4-10.4); Monocytes # 1.7 10^3/uL (0.2-0.9); Monocytes % 8.9 %; Neutrophils # 13.3 10^3/uL (1.8-7.7); Neutrophils % 70.4 %; Nucleated Red Blood Cells % 0 %; Platelet Count 350 10^3/cmm (130-400); Red Blood Count 4.67 10^6/uL (4.1-5.3); White Blood Count 18.8 10^3/uL (4.0-10.0)
[2019-07-23 06:56] LABS: Alanine Aminotransferase 92 U/L (0-41); Albumin Level 2.9 g/dL (3.5-5.2); Alkaline Phosphatase 96 IU/L (40-130); Anion Gap 16.9 (5-19); Aspartate Amino Transferase 42 U/L (0-40); Blood Urea Nitrogen 20 mg/dL (8-23); Calcium 9.9 mg/dL (8.5-10.5); Carbon Dioxide 24 mmol/L (22-29); Chloride 100 mmol/L (98-107); Globulin 3.3 g/dL (1.3-4.6); Glucose 97 mg/dL (65-115); Potassium 3.9 mmol/L (3.5-5.1); Sodium 137 mmol/L (136-145); Total Bilirubin 0.4 mg/dL (0.15-1.2); Total Protein 6.2 g/dL (6.6-8.7)
[2019-07-23 07:28] LABS: Slide Review Slide Review Perform
[2019-07-23 07:30] LABS: Absolute Eosinophils 0.1 10^3/cmm (0.0-0.7); Absolute Segmented Neutrophil 13.1 10/cmm (1.6-7.1); Band Neutrophils Absolute 0.2 10^3/cmm (0.0-1.2); Eosinophils 1 %; Giant Platelets Trace; Lymphocytes 15 %; Monocytes Absolute 2.3 10^3/cmm (0.1-0.6); Platelet Estimate Normal (Normal); Segmented Neutrophils 70 %; Total Cells Counted 100 (0-100)
[2019-07-23] MEDS: levofloxacin-dextrose 5 % 750 MG/150 ML PREMIX 150 MG IV (08:50)
[2019-07-23] MEDS: apixaban 5 mg Tablet PO (08:57)
[2019-07-23] MEDS: dilTIAZem ER (24HR) 240 mg Capsule PO (08:58)
[2019-07-23] MEDS: predniSONE 20 mg Tablet 40 MG PO (08:58)
[2019-07-23] MEDS: multivitamin therapeutic Tablet 1 TAB PO (08:58)
[2019-07-23] MEDS: atorvastatin 40 mg Tablet PO (08:58)
[2019-07-23] MEDS: isosorbide mononitrate 20 mg Tablet PO (08:58)
[2019-07-23] MEDS: folic acid 1 mg Tablet PO (08:58)
[2019-07-23] MEDS: pantoprazole DR 40 mg Tablet PO (08:58)
[2019-07-23] MEDS: tamsulosin 0.4 mg Capsule PO (08:58)
[2019-07-23] MEDS: aspirin 81 mg EC Tablet PO (08:58)
[2019-07-23] MEDS: thiamine 100 mg Tablet PO (08:58)
[2019-07-23] MEDS: hydroCHLOROthiazide 25 mg Tablet PO (08:58)
[2019-07-23] MEDS: metoprolol tartrate 50 mg Tablet PO (09:01)
[2019-07-23] MEDS: polyethylene glycol 3350 Pkt 17 gm PO (09:02)
[2019-07-23] MEDS: ipratropium-albuterol 3 mL Neb INHALATION (09:08)
--- NOTE | 2019-07-23 12:30 | PC.SOCIAL ---
IMM Page 2 of IMM explained to and signed by patient. He verbalizes understanding. Initialed, dated, and timed and placed in chart. Copy provided to patient.
--- NOTE | 2019-07-23 18:55 | P.DS_ITS ---
Discharge Providers Date of Admission: 07/20/19 00:14 Date of Discharge: July 23, 2019 Attending Provider at Admission: Alonso Cotto MD Attending Provider at Discharge: Hugo Carrington Primary Care Provider: Corrine Rainey MD Diagnoses at Discharge Discharge Diagnosis (1) Acute UTI: Status: Acute (2) Acute respiratory failure with hypoxia: Status: Acute (3) Acute exacerbation of chronic obstructive airways disease: Status: Acute (4) Acute hypokalemia: Status: Acute (5) Elevated troponin: Status: Acute (6) Hypertension: Status: Acute (7) Chronic anticoagulation: Status: Acute (8) Atrial fibrillation: Status: Acute (9) Hyperlipidemia: Status: Acute (10) Alcohol dependence: Status: Acute (11) Anxiety and depression: Status: Acute Reason for Visit Reason for Visit: Reason For Visit: resp distress Hospital Course Hospital Course: 74-year-old gentleman with history of COPD, not normally on oxygen, frequent alcohol intake, atrial fibrillation on Eliquis, depression, history of suicide attempt in the past, history of retinal detachment, HTN, HLD, GERD was admitted due to progressive shortness of breath, found to be in acute respiratory failure with hypoxia, requiring oxygen on presentation, with COPD exacerbation, with UTI, abnormal troponin thought to be secondary to demand ischemia. He was monitored for alcohol withdrawal, due to frequent alcohol use at home. With improvement in oxygenation, low suspicion for pneumonia, as well as gram-positive cocci in urine antibiotic initially switched over to vancomycin, subsequently, again with findings concerning for pneumonia, and enterococcus in urine, Levaquin was added back and will complete course with Levaquin for enterococcus UTI which is sensitive. UTI complicated by pyelonephritis, with bilateral nephrolithiasis for which she will follow-up with urology in office. He will also finish a prednisone taper. He does not qualify for oxygen on discharge. Of note liver ultrasound with finding of 12 mm hyperechoic mass in the right lobe which was discussed with him, along with counseling for alcohol cessation. He was encouraged to discuss again with his primary care provider, and to discuss follow-up with repeat ultrasound in 3 months. Physical Exam Const: COMMON NORMALS: no apparent distress and oriented x3 HENMT: COMMON NORMALS: oropharynx normal Eye: OTHER: He is comfortable at rest. Speaking full sentences on room air. Sitting up in chair. Glasses tinted on the right sided chronic right eye blindness. Neck/C-Spine: COMMON NORMALS: no JVD Resp: COMMON NORMALS: normal respiratory effort AUSCULTATION: no wheezes Cardio: COMMON NORMALS: no JVD, regular rhythm, S1 normal heart sound, S2 normal heart sound and no murmurs RHYTHM: regular rhythm HEART SOUNDS: S1 normal and S2 normal GI: COMMON NORMALS: normal to inspection, nondistended, normoactive bowel sounds and soft to palpation PALPATION: Yes soft and Yes tender Extremity: COMMON NORMALS: no joint enlargement and no pedal edema Neuro: COMMON NORMALS: oriented x3 and moves all extremities Skin: COMMON NORMALS: no rashes or lesions noted GENERAL SKIN EXAM: no rashes or lesions noted Discharge Data Data Completed and Pending: Completed Studies During Hospitalization Category Date Time Status CT kidney stone [id number] Routine Cat Scan 07/20/19 11:46 Completed XR chest 1V rebecca ble [id number] Urgent Exams 07/19/19 19:36 Completed US abdomen comple te* [id number] Urgent Ultrasound 07/20/19 01:11 Completed Pending at discharge Category Date Time Status Blood Culture Sta t Lab 07/19/19 19:45 Results Labs from last 24 hours 07/23/19 07/23/19 06:24 06:24 WBC 18.8 H RBC 4.67 Hgb 14.0 Hct 41.2 L MCV 88.2 MCH 30.0 MCHC 34.0 RDW 16.0 H Plt Count 350 MPV 10.6 H Neut % (Auto) 70.4 Lymph % (Auto) 14.8 [place] % (Auto) 8.9 Eos % (Auto) 0.5 Baso % (Auto) 0.2 Neut # (Auto) 13.3 H Lymph # (Auto) 2.8 [place] # (Auto) 1.7 H Eos # (Auto) 0.1 Baso # (Auto) 0.0 Nucleated RBC % (a uto) 0 Total Counted 100 Segmented Neutroph ils 70 Band Neutrophils 1.0 Lymphocytes (Manua l) 15 Monocytes (Manual) 12.0 Absolute Monocytes 2.3 H Eosinophils (Manua l) 1 Absolute Eosinophi ls 0.1 Metamyelocytes 1.0 Nucleated RBCs # 0.0 Platelet Estimate Normal Giant Platelets Trace Sodium 137 Potassium 3.9 Chloride 100 Carbon Dioxide 24 Anion Gap 16.9 BUN 20 Creatinine 0.7 Glucose 97 Calcium 9.9 Total Bilirubin 0.4 AST 42 H ALT 92 H Alkaline Phosphata se 96 Total Protein 6.2 L Albumin 2.9 L Globulin 3.3 Vitals: Last Vital Signs Temp 97.7 F 07/23/19 15:00 Pulse 72 07/23/19 15:00 Resp 18 07/23/19 15:00 BP 121/69 07/23/19 15:00 Pulse Ox 96 07/23/19 15:38 Discharge Plan Discharge Patient Disposition: Home, Self-Care Condition: Stable Prescriptions: New folic acid 1 mg Tablet 1 mg PO DAILY Qty: 30 RF: 0 Vitamin B-1 (mononitrate) 100 mg Tablet 100 mg PO DAILY Qty: 30 RF: 0 Levaquin 750 mg tablet 750 mg PO DAILY 7 Days Qty: 7 RF: 0 prednisone 20 mg tablet 20 mg PO DAILY Qty: 11 RF: 0 Continued isosorbide mononitrate 20 mg tablet 20 mg PO DAILY RF: 0 DILT-XR 240 mg capsule,ext.rel 24h degradable 240 mg PO DAILY RF: 0 Pravachol 40 mg tablet 40 mg PO TID RF: 0 Flomax 0.4 mg capsule 40 mg PO DAILY RF: 0 Protonix 40 mg tablet,delayed release (DR/EC) 40 mg PO DAILY RF: 0 Lopressor 50 mg tablet 50 mg PO DAILY RF: 0 hydrochlorothiazide 25 mg tablet 25 mg PO DAILY RF: 0 Ventolin HFA 90 mcg/actuation HFA aerosol inhaler 1 puff INHALATION Q4-5H PRN (Reason: Shortness Of Breath Or Wheezing) RF: 0 Flonase Allergy Relief 50 mcg/actuation spray,suspension 1 spray INTRANASAL BID RF: 0 Spiriva Respimat 2.5 mcg/actuation mist 1 puff INHALATION DAILY RF: 0 Eliquis 5 mg tablet 5 mg PO DAILY RF: 0 Discharge Orders: Discharge Order (Routine); Ordered 07/23/19 Ordered By: Hugo Carrington Referrals: [facility] [Outside] (Your information has been sent to [facility] to see if they can provide home health services. If you do not hear from them in 1-2 days, please call them at the number provided. You may also call [facility] [place] Case Management department with any questions or concerns at ext. [phone].) Corrine Rainey MD [Primary Care Provider] - 07/30/19 2:30 pm Wes Sheth MD [Physician] - 07/30/19 3:45 pm (Recurrent UTI - Pt states already has an appointment) Discharge Diet: Cardiac and Diabetic Discharge Activity: Increase activity as tolerated Patient Instructions: Alcohol Abuse, Generalized Anxiety Disorder, Prednisone (By mouth), Thiamine (Vitamin B-1) (By mouth), Folic Acid (By mouth), Levofloxacin (By mouth), Hypertension Activity Restrictions/Additional Instructions: Please avoid any alcohol intake due to findings of blood vessel malformations in your liver. Please ask your primary care provider to follow up 12mm unidentified lesion possibly mass in the liver in 3 months. Please monitor your blood pressure 3 times daily and record values to bring to your appointment. If you experience any progressive shortness of breath, chest pain, or other abnormal symptoms, please seek medical attention. Remember to discuss with your primary care doctor regarding possible restless leg syndrome. Discharge Date/Time: 07/23/19 15:55 Discharge Attestations Time Spent in Discharge Care*: greater than 30 min Quality Metrics Clinical Quality Measures During this hospital stay, did patient experience: None Coding Level of Care Code Acute Sales Marketing Director for g Fwd Diagnoses Acute UTI N39.0 Acute respiratory failure with hypoxia J96.01 Acute exacerbation of chronic obstructive airways disease J44.1 Acute hypokalemia E87.6 Elevated troponin R79.89 Hypertension I10 Chronic anticoagulation Z79.01 Atrial fibrillation I48.91 Hyperlipidemia E78.5 Alcohol dependence F10.20 Anxiety and depression F41.9; F32.9
== END 2019-07-23 15:55 | disposition home health service (06) | DRG 190 ==
LOC: ER 21:59 → MEDSURG 07-20 07:37
PROVIDERS: Emergency Medicine; Admitting Provider Family Medicine; Emergency Provider Physician Assistant; Family Provider Family Medicine; PCP Family Medicine; Visit Provider Internal Medicine
DX: J44.1 Chronic obstructive pulmonary disease with (acute) exacerbation (principal); J96.01 Acute respiratory failure with hypoxia; I24.8 Other forms of acute ischemic heart disease; N12 Tubulo-interstitial nephritis, not specified as acute or chronic; F10.20 Alcohol dependence, uncomplicated; E87.6 Hypokalemia; F17.210 Nicotine dependence, cigarettes, uncomplicated; F41.8 Other specified anxiety disorders; E78.5 Hyperlipidemia, unspecified; I10 Essential (primary) hypertension; I48.91 Unspecified atrial fibrillation; Z79.01 Long term (current) use of anticoagulants; K21.9 Gastro-esophageal reflux disease without esophagitis; Z91.5 Personal history of self-harm; J44.0 Chronic obstructive pulmonary disease with (acute) lower respiratory infection
CPT/HCPCS: 12345; 36415; 36600; 71045; 74176; 76700; 80053; 80202; 80307; 81001; 82550; 82553; 82607; 82803; 83605; 83690; 83735; 84100; 84145; 84484; 85007; 85025; 87040; 87077; 87086; 87186; 87804; 93005; 94640; 96360; 96372; 96375; 99283; J1650; J1956; J2001; J2405; J2920; J2930; J3370; J3480; J7030; J7050; J7512

== ENCOUNTER → 2019-07-30 15:53 | Outpatient (BNVA) | payer MEDICARE, MEDICAID, SELFPAY | PROVIDERS: Family Provider Family Medicine; PCP Family Medicine; Visit Provider Nurse Practitioner Family | DX: N30.20 Other chronic cystitis without hematuria (principal); C67.9 Malignant neoplasm of bladder, unspecified; N20.0 Calculus of kidney | CPT/HCPCS: 81001 ==

== ENCOUNTER → 2019-08-26 14:06 | Outpatient (BNVA) | payer MEDICARE, MEDICAID, SELFPAY | PROVIDERS: Family Provider Family Medicine; PCP Family Medicine; Visit Provider Nurse Practitioner Family | DX: N30.20 Other chronic cystitis without hematuria (principal); C67.9 Malignant neoplasm of bladder, unspecified | CPT/HCPCS: 80053; 81001 ==

== ENCOUNTER 2019-10-16 16:16 | Outpatient (CLI) | payer MEDICARE, MEDICAID, SELFPAY ==
--- NOTE | 2019-10-16 | USCV_ITS ---
Damien Stringer Age: 74 Gender: M : 1945 Exam Date: 10/16/2019 16:12 Ordering Phys: Corrine Rainey MD Technologist: Sandy Gee Exam Location: [facility] [place] Indication: LEG PAIN RIGHT LEFT Brachial 172.00 mmHg Brachial 164.00 mmHg Pressure (mmHg) Waveform Pressure (mmHg) Waveform 174.00 Above Knee 181.00 149.00 Below Knee 168.00 150.00 HEARING DOG TRAINER 166.00 155.00 DPA 152.00 0.90 Ankle/Brachial Index 0.97 99.00 Pre-Exercise Toe Pressure 125.00 Pre-Exercise Toe/Brachial Index 0.73 0.58 FINDINGS Normal resting [place] and TBI on the left side Slightly diminished resting [place] and TBI on the right side Relatively low velocity waveforms bilaterally with a loss of dicrotic notch CONCLUSIONS Diminished resting [place] and TBI on the right side, suggestive of mild to moderate peripheral artery disease Significant pressure gradient, suggestive of distal SFA/popliteal artery disease Abnormal PVR waveforms, could be related to technical problems. Consider CTA/invasive work-up, if clinically indicated Dr Duy Yip MD FAC (Electronically Signed) Final Date: 17 Oct 2019 08:18 S
== END 2019-10-16 16:17 | disposition home or self-care (01) ==
LOC: RAD 16:17
PROVIDERS: PCP Family Medicine; Visit Provider Family Medicine
DX: M79.604 Pain in right leg (principal); M79.605 Pain in left leg; G89.29 Other chronic pain
CPT/HCPCS: 93923

== ENCOUNTER 2019-10-18 10:19 | Outpatient (CLI) | payer MEDICARE, MEDICAID, SELFPAY ==
--- NOTE | 2019-10-18 10:15 | US_ITS ---
WS: [id number] ABDOMINAL ULTRASOUND LIMITED REASON FOR VISIT: LIVER LESION TECHNIQUE: Grayscale and Doppler ultrasound examination of the abdomen. FINDINGS: Pancreas: No apparent lesion Abdominal aorta and IVC: No lesions Liver: Liver measures 17.7 cm in length. 2 lesions are seen in the liver today 1 along the right lobe and the other along the inferior lobe the larger is the inferior lobe lesion measured 4.74 x 5.57 x 6.57 cm this lesion is poorly capsulated and appears to be solid. The second lesion measures 2.87 cm has similar consistent CM suggest either hemangioma or malignant changes. Gallbladder: Gallbladder wall thickness measures 0.2 mm. No stones identified Right kidney: Right kidney measures 11.7 cm x 5.4 cm x 5.5 cm. Benign appearing cyst along the superi or pole of the right kidney. US/US abdomen limited [id number] IMPRESSION: The dominant solid mass is again seen liver. There is evidence of a suspicious lesion along the periphery of the right lobe of the liver not mentioned on previous exam. Consider MRI with contrast as a follow-up.
== END 2019-10-18 10:20 | disposition home or self-care (01) ==
LOC: RAD 10:23
PROVIDERS: PCP Family Medicine; Visit Provider Family Medicine
DX: K76.9 Liver disease, unspecified (principal)
CPT/HCPCS: 76705

== ENCOUNTER 2019-10-23 13:03 | Emergency (ER) | payer MEDICARE, MEDICAID, SELFPAY ==
[2019-10-23 13:32] VITALS: BP 129/71; PULSE 79; RESP 20; TEMP 36.8; O2SAT 93; BMI 28.8
--- NOTE | 2019-10-23 14:41 | XR_ITS ---
WS: [id number] PORTABLE CHEST HISTORY: dyspnea/cough COMPARISON: 07/19/2019 Marked pulmonary hyperexpansion. Linear atelectasis at the lung bases. Similar to the prior study. No vascular congestion. No pleural effusion or pneumothorax. Cardiac size: Normal. Mediastinum/Aorta: Moderate atherosclerosis aorta. No osseous abnormality seen. XR/XR chest 1V portable [id number] IMPRESSION: Chronic emphysema with subsegmental bibasilar atelectasis.
--- NOTE | 2019-10-23 14:41 | ECG_ITS ---
Measurements Intervals [place] Rate: 66 P: MS: 0 QRS: 30 QRSD: 71 T: 51 QT: 382 QTc: 402 ATRIAL FIBRILLATION SEPTAL MYOCARDIAL INFARCTION , PROBABLY OLD [40+ ms Q WAVE IN V1/V2] Compared to ECG 07/20/2019 05:58:49 Myocardial infarct finding now present Ventricular premature complex(es) no longer present Aberrant conduction of supraventricular beat(s) no longer present Electronically Signed On 10-23-2019 20:33:46 CDT by Duy Yip M.D. [email or web address]
--- NOTE | 2019-10-23 14:49 | W.ED.SOB ---
HPI - SOB/Dyspnea General: Chief Complaint: Shortness of Breath/Dyspnea Stated Complaint: SOB, COUGH Time Seen by Provider: 10/23/19 14:15 History of Present Illness: HPI Narrative: 76-year-old male presents emergency room with complaint of shortness of breath. Home health care nurse seen him today he is complaining a little bit of shortness of breath she had contacted the PCP and he was advised to go to the emergency room. On arrival here he denies any shortness of breath is not had any chest pain he has a known history of heart disease congestive heart failure. He has no fever sweats or chills no cough no abdominal pain no urinary tract symptoms he denies any shortness of breath at this time he says it is completely resolved. MD elicited complaint: shortness of breath Pertinent past history: other (Atrial fibrillation) Onset (ago): minute(s) Timing: now resolved Severity: mild Exacerbating factors: nothing Relieving factors: nothing Known history of: congestive heart failure Associated symptoms: Deny abdominal pain, chest congestion, chest pain, cough, diaphoresis, dizziness, extremity pain, fever(s) or hemoptysis Treatment prior to arrival: none Review of Systems Const: Denies: fever(s) or diaphoresis ENMT: Denies: throat pain, ear or mastoid pain, nasal discharge or nasal congestion Card: Denies: chest pain Resp: Denies: hemoptysis or chest congestion GI: Denies: abdominal pain : Denies: flank pain, dysuria, urinary frequency or urinary urgency Musc: Denies: extremity pain Skin/Breast: Denies: rash or pruritus Neuro: Denies: dizziness PFSH ED PFSH: Medical History Anxiety and depression Atrial fibrillation Bladder cancer Bladder tumor Chronic anticoagulation Chronic cystitis COPD (chronic obstructive pulmonary disease) Enlarged prostate Genital lesion, male Hyperlipidemia Hypertension Iron deficiency anemia Renal calculi Surgical History H/O eye surgery History of colonoscopy (~2004) History of laparotomy History of lithotripsy History of ureter stent Family History Other CAD (coronary artery disease) Denies family history of Anesthesia complication Bleeding disorder Social History Smoking and tobacco status: current every day smoker Alcohol intake: current Alcohol intake frequency: 3 or more drinks per day Alcohol type: hard liquor Adopted: No Caregiver/support person: No Lives independently: Yes Marital status: Single Current occupational status: retired History of recent travel: No Physical Exam Const: COMMON NORMALS: average body habitus, patient oriented x3 and alert GENERAL APPEARANCE: cooperative, comfortable, well kempt and well developed NUTRITIONAL APPEARANCE: obese ORIENTATION/CONSCIOUSNESS: Yes awake, Yes oriented to person and Yes oriented to place HENMT: COMMON NORMALS: normocephalic, atraumatic, EAC's normal, TM's normal bilaterally, Normal external nose present, moist oral mucous membranes and oropharynx normal HEAD & SCALP: normocephalic and atraumatic NOSE: Normal external nose present EXTERNAL AUDITORY CANAL: EAC's normal TYMPANIC MEMBRANE: TM's normal bilaterally MOUTH: Normal oral and palatal mucosa present, lip normal and tongue normal THROAT: posterior oropharynx normal and tonsils normal Neck/C-Spine: COMMON NORMALS: full ROM, no lymphadenopathy, supple, no meningeal signs and Thyroid normal THYROID: Thyroid normal and asymmetrical Lymph: LYMPHATIC: no lymphadenopathy noted Resp: COMMON NORMALS: normal respiratory effort, No retractions, No use of accessory muscles and clear to auscultation bilaterally AUSCULTATION: clear to auscultation bilaterally Cardio: COMMON NORMALS: regular rate and regular rhythm RATE: regular rate RHYTHM: regular rhythm HEART SOUNDS: no murmurs GI: COMMON NORMALS: Normal to inspection, nondistended, normoactive bowel sounds present, Soft to palpation and No hepatosplenomegaly present PALPATION: Yes Soft to palpation and Yes No hepatosplenomegaly present : COMMON NORMALS: Yes no CVA tenderness BLADDER/KIDNEY EXAM: Yes no CVA tenderness Back/Pelvis: COMMON NORMALS: no CVA tenderness LUMBAR SPINE/LOWER BACK: Yes normal to inspection Extremity: COMMON NORMALS: no clubbing, cyanosis or edema, no calf tenderness and no pedal edema Neuro: COMMON NORMALS: patient oriented x3 SENSORIUM/ORIENTATION: Yes alert, Yes oriented to person and Yes oriented to place MENINGEAL SIGNS: Yes no meningeal signs Psych: APPEARANCE: Yes well kempt Skin: COMMON NORMALS: no rashes or lesions noted and turgor normal GENERAL SKIN EXAM: no rashes or lesions noted and turgor normal Course Vital Signs: Vital signs: Vital Signs Temperature 98.3 F 10/23/19 13:32 Pulse Rate 87 10/23/19 16:35 Respiratory Rate 16 10/23/19 16:35 Blood Pressure 178/87 10/23/19 16:35 Pulse Oximetry 95 10/23/19 16:35 MDM - SOB/Dyspnea MDM Narrative: Medical decision making narrative: Patient is actually tolerating very well at this point I will start him on doxycycline and prednisone. Continue to use albuterol for as any worsening symptoms return immediately Lab Data: Labs: Lab Results 10/23/19 10/23/19 Range/Units 15:15 15:15 WBC 9.6 (4.0-10.0) 10^3/ uL RBC 4.96 (4.1-5.3) 10^6/u L Hgb 14.3 (11.7-16.6) g/dL Hct 44.5 (42.0-52.0) % MCV 89.7 (80-94) fL MCH 28.8 (28.0-34.0) pg MCHC 32.1 (30.0-36.0) g/dL RDW 15.3 H (12.1-15.1) % Plt Count 275 (130-400) 10^3/c mm MPV 9.2 (7.4-10.4) fL Neut % (Auto) 67.3 % Lymph % (Auto) 19.9 % [place] % (Auto) 9.1 % Eos % (Auto) 2.8 % Baso % (Auto) 0.6 % Neut # (Auto) 6.4 (1.8-7.7) 10^3/u L Lymph # (Auto) 1.9 (0.8-4.8) 10^3/u L [place] # (Auto) 0.9 (0.2-0.9) 10^3/u L Eos # (Auto) 0.3 (0.0-0.8) 10^3/u L Baso # (Auto) 0.1 (0.0-0.1) 10^3/u L Nucleated RBC % (a uto) 0 % Nucleated RBCs # 0.0 /100WBC Sodium 138 (136-145) mmol/L Potassium 3.5 (3.5-5.1) mmol/L Chloride 97 L (98-107) mmol/L Carbon Dioxide 27 (22-29) mmol/L Anion Gap 17.5 (5-19) BUN 14 (8-23) mg/dL Creatinine 0.8 (0.7-1.2) mg/dL Glucose 90 (65-115) mg/dL Calculated Osmolal ity 282 L (285-295) mOsm/k g Calcium 9.4 (8.5-10.5) mg/dL Total Bilirubin 0.4 (0.15-1.2) mg/dL AST 23 (0-40) U/L ALT 19 (0-41) U/L Alkaline Phosphata se 124 (40-130) IU/L NT-Pro-B Natriuret Pep 474 H (0-125) pg/mL Total Protein 6.5 L (6.6-8.7) g/dL Albumin 4.2 (3.5-5.2) g/dL Globulin 2.3 (1.3-4.6) g/dL Discharge Plan Discharge Patient Disposition: Home, Self-Care Clinical Impression: Acute exacerbation of chronic obstructive airways disease Condition: Stable Prescriptions: New doxycycline hyclate 100 mg capsule 100 mg PO BID 10 Days Qty: 20 RF: 0 No Action prednisone 20 mg tablet 20 mg PO DAILY RF: 0 methenamine hippurate 1 gram tablet 1 gm PO BID Qty: 60 RF: 6 levofloxacin [Levaquin] 500 mg tablet 500 mg PO DAILY Qty: 14 RF: 1 isosorbide mononitrate 20 mg tablet 20 mg PO DAILY RF: 0 DILT-XR 240 mg capsule,ext.rel 24h degradable 240 mg PO DAILY RF: 0 Pravachol 40 mg tablet 40 mg PO TID RF: 0 Flomax 0.4 mg capsule 40 mg PO DAILY RF: 0 Protonix 40 mg tablet,delayed release (DR/EC) 40 mg PO DAILY RF: 0 Lopressor 50 mg tablet 50 mg PO DAILY RF: 0 hydrochlorothiazide 25 mg tablet 25 mg PO DAILY RF: 0 Ventolin HFA 90 mcg/actuation HFA aerosol inhaler 1 puff INHALATION Q4-5H PRN (Reason: Shortness Of Breath Or Wheezing) RF: 0 Flonase Allergy Relief 50 mcg/actuation spray,suspension 1 spray INTRANASAL BID RF: 0 Spiriva Respimat 2.5 mcg/actuation mist 1 puff INHALATION DAILY RF: 0 Eliquis 5 mg tablet 5 mg PO DAILY RF: 0 folic acid 1 mg Tablet 1 mg PO DAILY Qty: 30 RF: 0 Vitamin B-1 (mononitrate) 100 mg Tablet 100 mg PO DAILY Qty: 30 RF: 0 prednisone 20 mg tablet 20 mg PO DAILY Qty: 11 RF: 0 Discharge Orders: Discharge Order (Routine); Ordered 10/23/19 Ordered By: Rigoberto Doss Referrals: Corrine Rainey MD [Primary Care Provider] - Discharge Diet: Advance as tolerated Discharge Activity: Increase activity as tolerated Activity Restrictions/Additional Instructions: Follow-up with your doctor in the next 4 to 5 days return to the emergency room if worsening. Discharge Date/Time: 10/23/19 16:36 Coding Level of Care Code ED Auto Transport Driver for Juan Fwd Exam Comprehensive
[2019-10-23 15:22] LABS: Basophils # 0.1 10^3/uL (0.0-0.1); Basophils % 0.6 %; Eosinophils # 0.3 10^3/uL (0.0-0.8); Eosinophils % 2.8 %; Hematocrit 44.5 % (42.0-52.0); Hemoglobin 14.3 g/dL (11.7-16.6); Lymphocytes # 1.9 10^3/uL (0.8-4.8); Lymphocytes % 19.9 %; Mean Corpuscular HGB Conc 32.1 g/dL (30.0-36.0); Mean Corpuscular Hemoglobin 28.8 pg (28.0-34.0); Mean Corpuscular Volume 89.7 fL (80-94); Mean Platelet Volume 9.2 fL (7.4-10.4); Monocytes # 0.9 10^3/uL (0.2-0.9); Monocytes % 9.1 %; Neutrophils # 6.4 10^3/uL (1.8-7.7); Neutrophils % 67.3 %; Nucleated Red Blood Cells % 0 %; Platelet Count 275 10^3/cmm (130-400); Red Blood Count 4.96 10^6/uL (4.1-5.3); Red Cell Distribution Width 15.3 % (12.1-15.1); White Blood Count 9.6 10^3/uL (4.0-10.0)
[2019-10-23 15:27] VITALS: BP 158/92; PULSE 75; RESP 18; O2SAT 95
[2019-10-23 15:45] LABS: Alanine Aminotransferase 19 U/L (0-41); Albumin Level 4.2 g/dL (3.5-5.2); Alkaline Phosphatase 124 IU/L (40-130); Anion Gap 17.5 (5-19); Aspartate Amino Transferase 23 U/L (0-40); Blood Urea Nitrogen 14 mg/dL (8-23); Calcium 9.4 mg/dL (8.5-10.5); Carbon Dioxide 27 mmol/L (22-29); Chloride 97 mmol/L (98-107); Globulin 2.3 g/dL (1.3-4.6); Glucose 90 mg/dL (65-115); NT Pro B Type Natriuretic Pept 474 pg/mL (0-125); Osmolality Calculated 282 mOsm/kg (285-295); Potassium 3.5 mmol/L (3.5-5.1); Sodium 138 mmol/L (136-145); Total Bilirubin 0.4 mg/dL (0.15-1.2); Total Protein 6.5 g/dL (6.6-8.7)
[2019-10-23 16:35] VITALS: BP 178/87; PULSE 87; RESP 16; O2SAT 95
== END 2019-10-23 16:36 | disposition home or self-care (01) ==
PROVIDERS: Emergency Provider Family Medicine; PCP Family Medicine
DX: J44.1 Chronic obstructive pulmonary disease with (acute) exacerbation (principal); I48.91 Unspecified atrial fibrillation; Z85.51 Personal history of malignant neoplasm of bladder; E78.5 Hyperlipidemia, unspecified; I10 Essential (primary) hypertension; F17.210 Nicotine dependence, cigarettes, uncomplicated
CPT/HCPCS: 12345; 36415; 71045; 80053; 83880; 85025; 93005; 99282; 99283

== ENCOUNTER 2019-10-27 13:24 | Emergency (ER) | payer MEDICARE, MEDICAID, SELFPAY ==
[2019-10-27 13:24] VITALS: BP 157/84; PULSE 125; RESP 18; TEMP 36.7; O2SAT 92; BMI 28.0
--- NOTE | 2019-10-27 13:26 | CTR_ITS ---
PROCEDURE INFORMATION: Exam: CT Head Without Contrast Exam date and time: 10/27/2019 1:36 PM Age: 74 years old Clinical indication: Injury or trauma; Initial encounter; Blunt trauma (contusions or hematomas); Consciousness not specified; Patient HX: ETOH involved fall TECHNIQUE: Imaging protocol: Computed tomography of the head without contrast. Radiation optimization: All CT scans at this facility use at least one of these dose optimization techniques: automated exposure control; mA and/or kV adjustment per patient size (includes targeted exams where dose is matched to clinical indication); or iterative reconstruction. COMPARISON: CT head wo con* [id number] 06/20/2019 3:41 PM RADIATION DOSE METRICS: Total DLP: 787.91 mGy-cm FINDINGS: Brain: Benign globus pallidus calcifications are present. There is diffuse cerebral atrophy present, consistent with this patient's age. Cerebellar tonsils are low lying unchanged from the prior exam. Periventricular and subcortical white matter low densities are present which at this age likely represent microvascular ischemic change. No evidence for large acute ischemic infarction. Please note acute ischemia can be occult by head CT. Ventricles: Normal. No ventriculomegaly. Bones/joints: Unremarkable. No acute fracture. Sinuses: Visualized sinuses are unremarkable. No fluid levels. Mastoid air cells: Visualized mastoid air cells are well aerated. Soft tissues: Unremarkable. Vasculature: Calcified plaque is present within the carotid siphons. CT/CT head wo con* [id number] IMPRESSION: There are senescent changes of the brain as described above. No evidence for large acute ischemic infarction or acute intracranial injury. Radiation Dose CTDIVOL = (mGy): DLP = 787.91 (mGy-cm)
--- NOTE | 2019-10-27 13:28 | W.ED.ALCOHOL ---
HPI - Alcohol General: Chief Complaint: Fall Stated Complaint: ETOH Time Seen by Provider: 10/27/19 13:24 Source: patient Mode of arrival: ambulatory Limitations: no limitations History of Present Illness: HPI narrative: 74-year-old male who is brought in by EMS for alcohol intoxication. Patient had called life alert because he had fell and could not get up. He is unsure if he hit his head. Patient states he is drinking 30 pack of beer. He denies any suicidality. He denies any other injuries. MD complaint: alcohol intoxication Associated symptoms: Deny abdominal pain, depression, nausea or vomiting Review of Systems Const: Denies: fever(s), chills, body aches or change in appetite Eyes: Denies: blurry vision or eye discomfort ENMT: Denies: throat pain or dental pain Card: Denies: chest pain Resp: Denies: dyspnea GI: Denies: abdominal pain, nausea, vomiting or diarrhea : Denies: dysuria Musc: Denies: neck pain or back pain Skin/Breast: Denies: rash Neuro: Denies: headache(s) Psych: Denies: depression Geovanni/Lymph: Denies: easy bruising All/Imm: Denies: urticaria PFSH ED PFSH: Medical History Anxiety and depression Atrial fibrillation Bladder cancer Bladder tumor Chronic anticoagulation Chronic cystitis COPD (chronic obstructive pulmonary disease) Enlarged prostate Genital lesion, male Hyperlipidemia Hypertension Iron deficiency anemia Renal calculi Surgical History H/O eye surgery History of colonoscopy (~2004) History of laparotomy History of lithotripsy History of ureter stent Family History Other CAD (coronary artery disease) Denies family history of Anesthesia complication Bleeding disorder Social History Smoking and tobacco status: current every day smoker Alcohol intake: current Alcohol intake frequency: 3 or more drinks per day Alcohol type: hard liquor Adopted: No Caregiver/support person: No Lives independently: Yes Marital status: Single Current occupational status: retired History of recent travel: No Physical Exam Const: COMMON NORMALS: no acute distress, patient oriented x3 and healthy appearing OTHER: intoxicated HENMT: COMMON NORMALS: normocephalic and atraumatic HEAD & SCALP: normocephalic and atraumatic Eye: COMMON NORMALS: Equal, round and reactive pupils present and EOMs intact bilaterally PUPIL: Yes Equal, round and reactive pupils present Neck/C-Spine: COMMON NORMALS: full ROM and supple Chest: COMMONS NORMALS: normal inspection of the chest and normal palpation of entire chest wall Resp: COMMON NORMALS: normal respiratory effort, No retractions, No use of accessory muscles and clear to auscultation bilaterally AUSCULTATION: clear to auscultation bilaterally Cardio: COMMON NORMALS: regular rate, regular rhythm and No murmurs present (Cardio) RATE: regular rate RHYTHM: regular rhythm GI: COMMON NORMALS: Normal to inspection, nondistended, normoactive bowel sounds present, Soft to palpation, non-tender and no masses PALPATION: Yes Soft to palpation Extremity: COMMON NORMALS: normal to inspection and full ROM Neuro: COMMON NORMALS: patient oriented x3, moves all extremities and no focal motor deficits Psych: COMMON NORMALS: mental status grossly normal, Normal thought process present and cooperative THOUGHT PROCESS: Normal thought process present Skin: COMMON NORMALS: no rashes or lesions noted and no wounds GENERAL SKIN EXAM: no rashes or lesions noted Course Vital Signs: Vital signs: Vital Signs Temperature 98.0 F 10/27/19 13:24 Pulse Rate 110 H 10/27/19 14:48 Respiratory Rate 18 10/27/19 14:48 Blood Pressure 156/95 10/27/19 14:48 Pulse Oximetry 93 10/27/19 14:48 MDM - Alcohol MDM Narrative: Medical decision making narrative: Patient presents with alcohol intoxication. Patient had made some statements of possible suicide while he was intoxicated now is sober he denies. Patient was evaluated by Dr. Denson who agreed he is not suicidal. Patient is stable for discharge will place him on BuSpar for anxiety per Dr. Denson. Lab Data: Labs: Lab Results 10/27/19 10/27/19 10/27/19 Range/Units 13:34 13:34 13:34 WBC 7.0 (4.0-10.0) 10^3/ uL RBC 5.54 H (4.1-5.3) 10^6/u L Hgb 15.9 (11.7-16.6) g/dL Hct 49.6 (42.0-52.0) % MCV 89.5 (80-94) fL MCH 28.7 (28.0-34.0) pg MCHC 32.1 (30.0-36.0) g/dL RDW 15.7 H (12.1-15.1) % Plt Count 309 (130-400) 10^3/c mm MPV 9.1 (7.4-10.4) fL Neut % (Auto) 45.6 % Lymph % (Auto) 40.8 % [place] % (Auto) 10.2 % Eos % (Auto) 2.1 % Baso % (Auto) 1.0 % Neut # (Auto) 3.2 (1.8-7.7) 10^3/u L Lymph # (Auto) 2.9 (0.8-4.8) 10^3/u L Benzie # (Auto) 0.7 (0.2-0.9) 10^3/u L Eos # (Auto) 0.2 (0.0-0.8) 10^3/u L Baso # (Auto) 0.1 (0.0-0.1) 10^3/u L Nucleated RBC % (a uto) 0 % Nucleated RBCs # 0.0 /100WBC Sodium 143 (136-145) mmol/L Potassium 3.5 (3.5-5.1) mmol/L Chloride 102 (98-107) mmol/L Carbon Dioxide 29 (22-29) mmol/L Anion Gap 15.5 (5-19) BUN 8 (8-23) mg/dL Creatinine 0.7 (0.7-1.2) mg/dL Glucose 106 (65-115) mg/dL Calculated Osmolal ity 292 (285-295) mOsm/k g Calcium 8.7 (8.5-10.5) mg/dL Total Bilirubin 0.3 (0.15-1.2) mg/dL AST 33 (0-40) U/L ALT 24 (0-41) U/L Alkaline Phosphata se 137 H (40-130) IU/L Total Protein 6.5 L (6.6-8.7) g/dL Albumin 4.3 (3.5-5.2) g/dL Globulin 2.2 (1.3-4.6) g/dL Salicylates (3-10) mg/dL Urine Opiates Scre en (Negative) ng/mL Acetaminophen (10-30) ug/mL Ur Barbiturates Sc reen (Negative) ng/mL Ur Phencyclidine S crn (Negative) ng/mL Ur Amphetamines Sc reen (Negative) ng/mL U Benzodiazepines Scrn (Negative) ng/mL Urine Cocaine Scre en (Negative) ng/mL U Marijuana (THC) Screen (Negative) ng/mL Ethyl Alcohol 333 H* (0-10) mg/dL 10/27/19 10/27/19 Range/Units 13:34 14:16 WBC (4.0-10.0) 10^3/ uL RBC (4.1-5.3) 10^6/u L Hgb (11.7-16.6) g/dL Hct (42.0-52.0) % MCV (80-94) fL MCH (28.0-34.0) pg MCHC (30.0-36.0) g/dL RDW (12.1-15.1) % Plt Count (130-400) 10^3/c mm MPV (7.4-10.4) fL Neut % (Auto) % Lymph % (Auto) % Benzie % (Auto) % Eos % (Auto) % Baso % (Auto) % Neut # (Auto) (1.8-7.7) 10^3/u L Lymph # (Auto) (0.8-4.8) 10^3/u L Benzie # (Auto) (0.2-0.9) 10^3/u L Eos # (Auto) (0.0-0.8) 10^3/u L Baso # (Auto) (0.0-0.1) 10^3/u L Nucleated RBC % (a uto) % Nucleated RBCs # /100WBC Sodium (136-145) mmol/L Potassium (3.5-5.1) mmol/L Chloride (98-107) mmol/L Carbon Dioxide (22-29) mmol/L Anion Gap (5-19) BUN (8-23) mg/dL Creatinine (0.7-1.2) mg/dL Glucose (65-115) mg/dL Calculated Osmolal ity (285-295) mOsm/k g Calcium (8.5-10.5) mg/dL Total Bilirubin (0.15-1.2) mg/dL AST (0-40) U/L ALT (0-41) U/L Alkaline Phosphata se (40-130) IU/L Total Protein (6.6-8.7) g/dL Albumin (3.5-5.2) g/dL Globulin (1.3-4.6) g/dL Salicylates < 0.3 L (3-10) mg/dL Urine Opiates Scre en Negative (Negative) ng/mL Acetaminophen < 5.0 L (10-30) ug/mL Ur Barbiturates Sc reen Negative (Negative) ng/mL Ur Phencyclidine S crn Negative (Negative) ng/mL Ur Amphetamines Sc reen Negative (Negative) ng/mL U Benzodiazepines Scrn Negative (Negative) ng/mL Urine Cocaine Scre en Negative (Negative) ng/mL U Marijuana (THC) Screen Negative (Negative) ng/mL Ethyl Alcohol (0-10) mg/dL Imaging Data^: xr L shoulder: Attestation: I personally reviewed and interpreted this imaging study as follows: My impression: no acute fx CT Head: Radiologist's impression: [place] [address] CT Scan Report Signed Patient: Damien Stringer Unit #: [id number] : 1945 Age/Sex: 74 / M ADM Date: 10/27/19 Loc: ER Room/Bed: Attending Dr: Ordering Provider/Ordering MD: Priya Grullon MD Date of Service: 10/27/19 Procedure(s): CT head wo con* [id number] Accession Number(s): [id number] Report Number: [id number] PROCEDURE INFORMATION: Exam: CT Head Without Contrast Exam date and time: 10/27/2019 1:36 PM Age: 74 years old Clinical indication: Injury or trauma; Initial encounter; Blunt trauma (contusions or hematomas); Consciousness not specified; Patient HX: ETOH involved fall TECHNIQUE: Imaging protocol: Computed tomography of the head without contrast. Radiation optimization: All CT scans at this facility use at least one of these dose optimization techniques: automated exposure control; mA and/or kV adjustment per patient size (includes targeted exams where dose is matched to clinical indication); or iterative reconstruction. COMPARISON: CT head wo con* [id number] 06/20/2019 3:41 PM RADIATION DOSE METRICS: Total DLP: 787.91 mGy-cm FINDINGS: Brain: Benign globus pallidus calcifications are present. There is diffuse cerebral atrophy present, consistent with this patient's age. Cerebellar tonsils are low lying unchanged from the prior exam. Periventricular and subcortical white matter low densities are present which at this age likely represent microvascular ischemic change. No evidence for large acute ischemic infarction. Please note acute ischemia can be occult by head CT. Ventricles: Normal. No ventriculomegaly. Bones/joints: Unremarkable. No acute fracture. Sinuses: Visualized sinuses are unremarkable. No fluid levels. Mastoid air cells: Visualized mastoid air cells are well aerated. Soft tissues: Unremarkable. Vasculature: Calcified plaque is present within the carotid siphons. CT/CT head wo con* [id number] IMPRESSION: There are senescent changes of the brain as described above. No evidence for large acute ischemic infarction or acute intracranial injury. EKG Data^: EKG 1: Attestation: I personally reviewed and interpreted this EKG as follows: EKG interpretation date: 10/27/19 EKG interpretation time: 16:10 Interpretation: afib hr [address] or t wave abnormalities qrs 78 qtc 383 Discharge Plan Discharge Patient Disposition: Home, Self-Care Clinical Impression: Alcohol intoxication Qualifiers: Complication of substance-induced condition: uncomplicated Qualified Code(s): F10.920 - Alcohol use, unspecified with intoxication, uncomplicated Depression Qualifiers: Depression Type: unspecified Qualified Code(s): F32.9 - Major depressive disorder, single episode, unspecified Condition: Stable Prescriptions: New buspirone 10 mg tablet 10 mg PO BID Qty: 60 RF: 0 No Action prednisone 20 mg tablet 20 mg PO DAILY RF: 0 methenamine hippurate 1 gram tablet 1 gm PO BID Qty: 60 RF: 6 ropinirole 3 mg Tablet 3 mg PO BEDTIME RF: 0 Aspir-81 81 mg Tablet,Delayed Release (Dr/Ec) 81 mg PO DAILY RF: 0 mirtazapine 30 mg Tablet 30 mg PO BEDTIME RF: 0 iron 325 mg (65 mg iron) Tablet 325 mg PO DAILY RF: 0 isosorbide mononitrate 20 mg tablet 20 mg PO BID RF: 0 diltiazem HCl [DILT-XR] 240 mg capsule,ext.rel 24h degradable 240 mg PO DAILY RF: 0 pravastatin [Pravachol] 40 mg tablet 40 mg PO BEDTIME RF: 0 tamsulosin [Flomax] 0.4 mg capsule 0.4 mg PO BID RF: 0 pantoprazole [Protonix] 40 mg tablet,delayed release (DR/EC) 40 mg PO DAILY RF: 0 metoprolol tartrate [Lopressor] 50 mg tablet 50 mg PO BID RF: 0 hydrochlorothiazide 25 mg tablet 25 mg PO DAILY RF: 0 albuterol sulfate [Ventolin HFA] 90 mcg/actuation HFA aerosol inhaler 2 puff INHALATION Q4H PRN (Reason: Shortness Of Breath Or Wheezing) RF: 0 fluticasone propionate [Flonase Allergy Relief] 50 mcg/actuation spray,suspension 1 spray INTRANASAL BID RF: 0 Spiriva Respimat 2.5 mcg/actuation mist 1 puff INHALATION BID RF: 0 Eliquis 5 mg tablet 5 mg PO BID RF: 0 thiamine mononitrate (vit B1) [Vitamin B-1 (mononitrate)] 100 mg Tablet 100 mg PO DAILY Qty: 30 RF: 0 doxycycline hyclate 100 mg capsule 100 mg PO BID 10 Days Qty: 20 RF: 0 Discharge Orders: Discharge Order (Routine); Ordered 10/27/19 Ordered By: Priya Grullon Referrals: Corrine Rainey MD [Primary Care Provider] - 1-3 days Discharge Diet: Advance as tolerated Discharge Activity: Resume usual activity Patient Instructions: Depression (ED), Alcohol Intoxication (ED) Coding Level of Care Code ED Darkroom Worker for Chg Fwd Exam Comprehensive
[2019-10-27 13:33] VITALS: BP 157/84; PULSE 101; RESP 16; O2SAT 95
--- NOTE | 2019-10-27 13:35 | PC.NURSE ---
Lab at bedside to draw blood
--- NOTE | 2019-10-27 13:36 | PC.NURSE ---
After assessing pt, pt states I lied to you, when I fell I hit the whole left side . Pt denies hitting head or LOC but reports left shoulder pain.
--- NOTE | 2019-10-27 13:37 | XRR_ITS ---
PROCEDURE INFORMATION: Exam: XR Left Shoulder Exam date and time: 10/27/2019 1:55 PM Age: 74 years old Clinical indication: Injury or trauma; Fall; Initial encounter; Blunt trauma (contusions or hematomas; Shoulder; Left TECHNIQUE: Imaging protocol: XR Left shoulder. Views: 2 or more views. COMPARISON: No relevant prior studies available. FINDINGS: Bones/joints: There is an anchor screw in the humeral head consistent with prior rotator cuff tendon repair. There is a metallic plate and screw fixation device along the proximal to mid humeral diaphysis stabilizing a chronic/healed fracture site. There associated is callus formation. Soft tissues: See Bones/joints finding. XR/XR shoulder LT min 2V* [id number] IMPRESSION: There is a metallic plate and screw fixation device along the proximal to mid humeral diaphysis stabilizing a chronic/healed fracture site. No evidence for acute fracture.
[2019-10-27 13:41] LABS: Basophils # 0.1 10^3/uL (0.0-0.1); Eosinophils # 0.2 10^3/uL (0.0-0.8); Eosinophils % 2.1 %; Hematocrit 49.6 % (42.0-52.0); Hemoglobin 15.9 g/dL (11.7-16.6); Lymphocytes # 2.9 10^3/uL (0.8-4.8); Lymphocytes % 40.8 %; Mean Corpuscular HGB Conc 32.1 g/dL (30.0-36.0); Mean Corpuscular Hemoglobin 28.7 pg (28.0-34.0); Mean Corpuscular Volume 89.5 fL (80-94); Mean Platelet Volume 9.1 fL (7.4-10.4); Monocytes # 0.7 10^3/uL (0.2-0.9); Monocytes % 10.2 %; Neutrophils # 3.2 10^3/uL (1.8-7.7); Neutrophils % 45.6 %; Nucleated Red Blood Cells % 0 %; Platelet Count 309 10^3/cmm (130-400); Red Blood Count 5.54 10^6/uL (4.1-5.3); Red Cell Distribution Width 15.7 % (12.1-15.1)
--- NOTE | 2019-10-27 13:47 | PC.NURSE ---
Pt returned from CT. XR performed at bedside.
[2019-10-27 13:56] LABS: Alanine Aminotransferase 24 U/L (0-41); Albumin Level 4.3 g/dL (3.5-5.2); Alkaline Phosphatase 137 IU/L (40-130); Anion Gap 15.5 (5-19); Aspartate Amino Transferase 33 U/L (0-40); Blood Urea Nitrogen 8 mg/dL (8-23); Calcium 8.7 mg/dL (8.5-10.5); Carbon Dioxide 29 mmol/L (22-29); Chloride 102 mmol/L (98-107); Globulin 2.2 g/dL (1.3-4.6); Glucose 106 mg/dL (65-115); Osmolality Calculated 292 mOsm/kg (285-295); Potassium 3.5 mmol/L (3.5-5.1); Sodium 143 mmol/L (136-145); Total Bilirubin 0.3 mg/dL (0.15-1.2); Total Protein 6.5 g/dL (6.6-8.7)
[2019-10-27 14:25] LABS: Alcohol Level 333 mg/dL (0-10)
[2019-10-27 14:48] VITALS: BP 156/95; PULSE 110; RESP 18; O2SAT 93
--- NOTE | 2019-10-27 14:49 | PC.NURSE ---
Upon doing pt vitals, pt states You know, if I go home.... . Pt asked to elaborate. Pt then stated If I go home, I'm going to kill myself. Pt asked if he has a plan, he says I would slit my wrists and bleed out . Dr Grullon notified. Sitter placed at bedside.
[2019-10-27 15:27] LABS: Amphetamines Screen Urine Negative (Negative); Barbiturates Screen Urine Negative (Negative); Benzodiazepines Screen Urine Negative (Negative); Cocaine Screen Urine Negative (Negative); Opiate Screen Urine Negative (Negative); PCP Screen Urine Negative (Negative); THC Screen Urine Negative (Negative)
[2019-10-27 15:33] LABS: Acetaminophen < 5.0 ug/mL (10-30); Salicylate < 0.3 mg/dL (3-10)
--- NOTE | 2019-10-27 15:42 | XRR_ITS ---
PROCEDURE INFORMATION: Exam: XR Chest, 1 View Exam date and time: 10/27/2019 3:57 PM Age: 74 years old Clinical indication: Shortness of breath; Additional info: Psych TECHNIQUE: Imaging protocol: XR of the chest Views: 1 view. COMPARISON: CR XR chest 1V portable [id number] 10/23/2019 2:50 PM FINDINGS: Lungs: Streaky opacities at left lung base are similar to the prior study and are consistent with scarring and/or atelectasis. Pleural space: Unremarkable. No pleural effusion. No pneumothorax. Heart/Mediastinum: Unremarkable. No cardiomegaly. Vasculature: There is calcified plaque in aortic. Bones/joints: Unremarkable. XR/XR chest 1V portable [id number] IMPRESSION: There is scarring and/or atelectasis at left lung base.
--- NOTE | 2019-10-27 15:42 | ECG_ITS ---
Measurements Intervals [place] Rate: 108 P: DE: 0 QRS: 55 QRSD: 78 T: 68 QT: 320 QTc: 429 ATRIAL FIBRILLATION WITH RAPID VENTRICULAR RESPONSE WITH ABERRANT CONDUCTION OR VENTRICULAR PREMATURE COMPLEXES SEPTAL MYOCARDIAL INFARCTION , OF INDETERMINATE AGE Compared to ECG 10/23/2019 15:25:03 Aberrant conduction of supraventricular beat(s) now present Ventricular premature complex(es) now present Myocardial infarct finding still present Electronically Signed On 10-28-2019 19:56:05 CDT by Marita Ansari M.D. [email or web address]
--- NOTE | 2019-10-27 15:52 | PC.NURSE ---
Pt now telling his sitter he is not suicidal, he is just scared . Dr Grullon notified. Will consult psychiatry.
--- NOTE | 2019-10-27 16:01 | PC.NURSE ---
Spoke with pt regarding statements that he is not suicidal. Pt states Isn't everyone suicidal from time to time? Pt was educated on need to speak with psychiatry before being discharged. Pt understands. Sitter remains at bedside, Telepsych at bedside.
--- NOTE | 2019-10-27 16:42 | PM.PSYCN ---
Providers/Reason for Consult Consulting Physican/Specialty*: Hawk Denson MD. Psychiatry. Reason for Consult*: Evaluation for possible discharge. Primary Care Provider: Corrine Rainey MD Psych Consult HPI History of Present Illness Damien Stringer is a 74 year old male who presented to the emergency room after an apparent fall and some concerns that he had many statements to kill himself. He has been drinking which is not uncommon at the time of the evaluation in the emergency room by the emergency room doctor his blood alcohol was 333. At time this race and sports book writer saw him he had been in the emergency room for a week while and had not endorsed any suicidal thoughts. He reports that things have been fairly stressful recently. He has significant medical comorbidities and has a lot of different challenges and he reports that sometimes when he drinks he says stupid things. He denied any lethality or any desire to reporting that he knows that if he were to do something like that have occurred against his amish belief system. We reviewed his last psychiatric evaluation and an example of that is included below. He denies any substantive changes historically and was able to contract for safety. Psychiatric history: He has had multiple inpatient psychiatric hospitalizations but none since 2012. Per previous [facility] [place]:DATE OF ADMISSION: 02/15/2013 DATE OF DICTATION: 02/16/2013 CHIEF COMPLAINT: I was thinking of drinking myself to . HISTORY OF PRESENT ILLNESS: A 67-year-old male patient with a long history of alcohol dependence, presented to the Emergency Room stating that he tried to drink himself to . He was feeling hopeless. The patient stated that he has chronic kidney stones. He has been feeling depressed. He has been having thoughts of harming himself. There are affidavits in file that the patient was arguing with his sister, who showed up while he was drinking. It looks like she suggested him coming to the Stress Unit, but the patient was threatening suicide and trying to cut himself with a knife. The patient felt he has been increasingly depressed since the loss of his five years ago. His drinking has gotten worse also. He has mentioned he has had five pints of sweet vodka in the past three days. He has been currently experiencing significant withdrawal symptoms. He has been feeling nauseated, has been throwing up and also was experiencing significant tremor. He has denied any history of seizures or delirium tremens. He has denied any previous diagnosis of bipolar disorder or any other psychotic disorders. REVIEW OF SYSTEMS: The patient was complaining of nausea and vomiting. As a matter of fact, I walked him to the restroom as he wanted to throw up due to his nausea. The patient has mentioned some tenderness on his chest. He is not sure if he blacked out or hit his chest. He had a chest x-ray done in the Emergency Room which showed only chronic emphysema, but there is no acute pathology. Otherwise, the rest of the review of systems is negative, except what was described in the History of Present Illness. PAST MEDICAL HISTORY: The patient stated that he has a murmur in his heart and history of atrial fibrillation. Also, ureterolithiasis and hypertension. SOCIAL HISTORY: He was for 44 years, until he lost his five years ago. The patient mentioned he has a son and a daughter. He does not seem to have a good social network. He is not currently employed. He is drawing Supplemental Security income. PAST PSYCHIATRIC HISTORY: The patient denied any previous suicide attempts or psychiatric hospitalization. He has admitted a history of depression though. FAMILY HISTORY: He has two brothers and a sister. He has denied a family history of mental illness. SUBSTANCE ABUSE HISTORY: He admitted drinking alcohol almost all his life. He drinks vodka. DIAGNOSTICS: LABORATORIES: Alcohol level was 305. Drug screen was negative. Urinalysis was negative. Sodium 141, potassium 4.0, creatinine 0.9, white count 11.6, hematocrit 49.3, platelets 295,000. ULTRASOUND, KIDNEYS: Distal ureter calculus. PFSH NPU PFSH: Medical History (Updated 11/18/19 @ 06:24 by Hawk Denson MD) Anxiety and depression Atrial fibrillation Bladder cancer Bladder tumor Chronic anticoagulation Chronic cystitis COPD (chronic obstructive pulmonary disease) Enlarged prostate Genital lesion, male Hyperlipidemia Hypertension Iron deficiency anemia Peripheral vascular disease of extremity Renal calculi Surgical History (Updated 11/05/19 @ 13:18 by Wes Sheth MD) H/O eye surgery H/O eye surgery detached retina left eye History of colonoscopy (~2004) History of laparotomy History of lithotripsy History of ureter stent Family History (Updated 11/05/19 @ 13:06 by Connie Sanchez LPN) Mother , at age 94 Hypertension Heart disease Father , at age 72 Renal disease Heart disease Brother Heart disease Other CAD (coronary artery disease) Social History Smoking and tobacco status: current every day smoker Alcohol intake: current Alcohol intake frequency: 3 or more drinks per day Alcohol type: hard liquor Adopted: No Caregiver/support person: No Lives independently: Yes Marital status: Single Current occupational status: retired History of recent travel: No Mental Status Exam MSE Comments: This is an overweight white male older white male with adequate dress grooming and eye contact. No abnormal movements except for psychomotor retardation cooperative with exam in no acute distress speech was occasionally slurred and decreased rate and volume. Mood described as tired but okay, affect congruent. Thought process organized. Thought content: Patient denied any suicidal or homicidal ideation, there were no delusions reported or noted, he denied any auditory visual hallucinations. Attention and concentration appear intact and memory. Reliable but none were formally tested. He is alert and oriented x3. Insight and judgment are fair and impulse control is limited. Vitals/I&O/Wt Last Vital Signs Temp 98.0 F 10/27/19 13:24 Pulse 110 H 10/27/19 14:48 Resp 18 10/27/19 14:48 BP 156/95 10/27/19 14:48 Pulse Ox 93 10/27/19 14:48 Weight last 48 hrs Weight 104.326 kg A&P Assessment and plan (1) Anxiety and depression: Status: Acute (2) Alcohol dependence: Status: Acute (3) Alcohol intoxication: Status: Acute (4) Alcohol withdrawal without perceptual disturbances: Status: Acute Additional A&P Information This is a 74-year-old white male with a long history of alcohol use and mental health conditions who presents acutely intoxicated on alcohol and having no interest in treatment with request for evaluation for safety for discharge. 1. Continue current medication. 2. Agree with appropriate measures for addressing alcohol intoxication and withdrawal. 3. No signs of credible lethality and agree with discharge. 4. Recommend sober living treatment at the highest level to which she is willing to commit. 5. Offered anti-craving measures. 6. Recommend ongoing mental health treatment. Attestations NPU Medical Necessity Statement*: N/A. Please refer to ED physician for definitive medical necessity attestation, however patient is not interested in inpatient treatment and no signs are present that would necessitate a 96-hour hold. Coding Level of Care Code Acute Track Manager for [facility] Fwd Diagnoses Anxiety and depression F41.9; F32.9 Alcohol dependence F10.20 Alcohol intoxication F10.929 Alcohol withdrawal without perceptual disturbances F10.239
--- NOTE | 2019-10-27 16:52 | PC.NURSE ---
Dr Denson spoke with pt via Telepsych
== END 2019-10-27 18:05 | disposition home or self-care (01) ==
PROVIDERS: Emergency Provider Emergency Medicine; PCP Family Medicine
DX: F10.120 Alcohol abuse with intoxication, uncomplicated (principal); Y90.9 Presence of alcohol in blood, level not specified; F32.9 Major depressive disorder, single episode, unspecified; Z79.82 Long term (current) use of aspirin; Z79.01 Long term (current) use of anticoagulants; I48.91 Unspecified atrial fibrillation; Z85.51 Personal history of malignant neoplasm of bladder; J44.9 Chronic obstructive pulmonary disease, unspecified; E78.5 Hyperlipidemia, unspecified; I10 Essential (primary) hypertension; F17.210 Nicotine dependence, cigarettes, uncomplicated; Z79.899 Other long term (current) drug therapy
CPT/HCPCS: 12345; 36415; 70450; 71045; 73030; 80053; 80306; 80307; 85025; 93005; 99282; 99283; Q3014

== ENCOUNTER → 2019-11-05 13:08 | Outpatient (BNVA) | payer MEDICARE, MEDICAID, SELFPAY | PROVIDERS: PCP Family Medicine; Visit Provider Urology | DX: N30.20 Other chronic cystitis without hematuria (principal); R31.0 Gross hematuria; C67.9 Malignant neoplasm of bladder, unspecified; N20.0 Calculus of kidney | CPT/HCPCS: 80053; 81001; 87077; 87086; 87186 ==

== ENCOUNTER 2019-11-11 10:48 | Outpatient (CLI) | payer MEDICARE, MEDICAID, SELFPAY ==
--- NOTE | 2019-11-11 10:55 | MR_ITS ---
WS: [id number] MRI ABDOMEN with and without CONTRAST. COMPARISON: 01/26/2018 and 07/20/2019, 10/18/2019 Multiplanar, multisequence imaging is performed with and without contrast. Normal size liver. Previously described RIGHT hepatic hemangioma in the superior medial RIGHT lobe of the liver is again identified measuring 4.6 x 5.1 x 5.8 cm. Not significantly increased in size. Sta ble over multiple prior examinations and most consistent with a hemangioma although there is slight a typical enhancement. There is an additional small stable cyst in the RIGHT lobe of the liver near the rebecca hepatis. These third lesion that was identified on the recent ultrasound is not identified by MRI. I suspect this was probably a prominent fat-containing diaphragmatic slip. No additional mass. N o bile duct dilatation. Gallbladder is normally distended. Bilateral renal cysts. The RIGHT renal pelvis and proximal ureter is slightly dilated. The renal pelv is measures 2.6 cm. Proximal ureter measures 7 mm. I suspect there could be a distal obstructing proc ess. This ureteral dilatation was not present in 2018. MR/MR abdomen wo/w con* [id number] IMPRESSION: 1. Long-term stability of a RIGHT hepatic hemangioma and cyst. 2. Recently described new lesion in the RIGHT lobe of the liver is not identif ied. I suspect was a prominent fat-containing diaphragmatic slip. 3. Mild dilatation of the RIGHT renal pelvis and proximal ureter. Distal obstr ucting stone or nodule is not excluded. Noncontrast CT evaluation may be worthw hile. Mild hydronephrosis is new since 07/20/2019.
== END 2019-11-11 10:49 | disposition home or self-care (01) ==
LOC: RADSHAW 10:52
PROVIDERS: PCP Family Medicine; Visit Provider Family Medicine
DX: K76.9 Liver disease, unspecified (principal); D18.09 Hemangioma of other sites; N28.82 Megaloureter; N13.30 Unspecified hydronephrosis
CPT/HCPCS: 74183; A9579

== ENCOUNTER 2019-12-02 15:40 | Emergency (ER) | payer MEDICARE, MEDICAID, SELFPAY ==
[2019-12-02 15:45] VITALS: BP 186/86; PULSE 97; RESP 24; TEMP 37.4; O2SAT 100; BMI 16.4
--- NOTE | 2019-12-02 15:53 | XRR_ITS ---
PROCEDURE INFORMATION: Exam: XR Chest, 1 View Exam date and time: 12/02/2019 4:12 PM Age: 74 years old Clinical indication: Cough and dyspnea; Additional info: Dyspnea/cough TECHNIQUE: Imaging protocol: XR of the chest Views: 1 view. COMPARISON: CR XR chest 1V portable [id number] 10/27/2019 4:04 PM FINDINGS: Lungs: Left lower lobe atelectasis. No consolidation. Pleural space: Unremarkable. No pleural effusion. No pneumothorax. Heart/Mediastinum: Unremarkable. No cardiomegaly. Bones/joints: Unremarkable. XR/XR chest 1V portable [id number] IMPRESSION: No acute findings.
--- NOTE | 2019-12-02 15:53 | W.ED.SOB ---
HPI - SOB/Dyspnea General: Chief Complaint: Shortness of Breath/Dyspnea Stated Complaint: covid symptoms Time Seen by Provider: 12/02/19 15:52 History of Present Illness: HPI Narrative: Mr. Mclain is a 74-year-old male who is complaining of shortness of breath. Dyspnea x2 weeks with a T-max at home of 102 today said a productive cough for last 3 to 4 weeks as well he is a former heavy drinker he states he stopped 3 to 4 months ago and has not had any since. He is not on home O2 he denies any nausea vomiting or diarrhea. He has been using nebulizers regularly that seems to have increased his productive cough he denies any abdominal pain denies any GI bleeding denies any dysuria urgency or frequency. He is not had any chest pain or tightness. MD elicited complaint: shortness of breath and cough Pertinent past history: COPD Onset (ago): week(s) (2) Context: recent illness Timing: constant Severity: moderate Exacerbating factors: exertion, coughing, inspiration and deep breaths Relieving factors: bronchodilators Associated symptoms: Deny abdominal pain, chest pain, fever(s), nausea, orthopnea or vomiting Treatment prior to arrival: bronchodilator Review of Systems Const: Denies: fever(s), chills, body aches, change in appetite, fatigue or malaise ENMT: Denies: throat pain, ear or mastoid pain, nasal discharge or nasal congestion Card: Denies: chest pain, edema, dyspnea on exertion or orthopnea Resp: Reports: dyspnea and productive cough; Denies: non-productive cough GI: Denies: abdominal pain, nausea, vomiting, hematemesis, coffee ground emesis, diarrhea, constipation, bloating, hematochezia or melena : Denies: flank pain, dysuria, urinary frequency or urinary urgency Skin/Breast: Denies: rash or pruritus PFSH ED PFSH: Medical History Anxiety and depression Atrial fibrillation Bladder cancer Bladder tumor Chronic anticoagulation Chronic cystitis COPD (chronic obstructive pulmonary disease) Enlarged prostate Genital lesion, male Hyperlipidemia Hypertension Iron deficiency anemia Peripheral vascular disease of extremity Renal calculi Surgical History H/O eye surgery H/O eye surgery detached retina left eye History of colonoscopy (~2004) History of laparotomy History of lithotripsy History of ureter stent Family History Mother , at age 94 Hypertension Heart disease Father , at age 72 Renal disease Heart disease Brother Heart disease Other CAD (coronary artery disease) Social History Smoking and tobacco status: former smoker Alcohol intake: current Alcohol intake frequency: 3 or more drinks per day Alcohol type: hard liquor Adopted: No Caregiver/support person: No Lives independently: Yes Marital status: Single Current occupational status: retired History of recent travel: No Physical Exam Const: COMMON NORMALS: no acute distress GENERAL APPEARANCE: cooperative and comfortable ORIENTATION/CONSCIOUSNESS: Yes awake, Yes oriented to person, Yes oriented to place and Yes oriented to time HENMT: COMMON NORMALS: normocephalic, atraumatic, hearing grossly normal bilaterally, external ears normal, EAC's normal, TM's normal bilaterally, Normal nasal mucous membranes and turbinates present, moist oral mucous membranes and oropharynx normal HEAD & SCALP: normocephalic and atraumatic NOSE: Normal nasal mucous membranes and turbinates present EXTERNAL EAR: Yes external ears normal EXTERNAL AUDITORY CANAL: EAC's normal TYMPANIC MEMBRANE: TM's normal bilaterally Eye: COMMON NORMALS: Equal, round and reactive pupils present, EOMs intact bilaterally, conjunctivae normal and no scleral icterus CONJUNCTIVA: Yes conjunctivae normal PUPIL: Yes Equal, round and reactive pupils present Neck/C-Spine: COMMON NORMALS: full ROM, no lymphadenopathy, supple and no JVD Lymph: LYMPHATIC: no lymphadenopathy noted and no lymphedema noted Resp: COMMON NORMALS: normal respiratory effort, No retractions, No use of accessory muscles and clear to auscultation bilaterally AUSCULTATION: clear to auscultation bilaterally and diminished lung sounds bilateral in the lower lung reyes Cardio: COMMON NORMALS: no JVD, regular rate, regular rhythm and No murmurs present (Cardio) RATE: regular rate RHYTHM: regular rhythm GI: COMMON NORMALS: Soft to palpation and No hepatosplenomegaly present AUSCULTATION: Yes normoactive bowel sounds PALPATION: Yes Soft to palpation, No Tenderness to palpation present (GI), No Guarding due to palpation present (GI) and Yes No hepatosplenomegaly present Extremity: COMMON NORMALS: normal to inspection, capillary refill normal, no clubbing, cyanosis or edema, no calf tenderness and no pedal edema Neuro: SENSORIUM/ORIENTATION: Yes oriented to person, Yes oriented to place and Yes oriented to time Skin: COMMON NORMALS: no rashes or lesions noted GENERAL SKIN EXAM: no rashes or lesions noted Course Vital Signs: Vital signs: Vital Signs Temperature 99.4 F 12/02/19 15:45 Pulse Rate 97 12/02/19 15:45 Respiratory Rate 24 H 12/02/19 15:45 Blood Pressure 186/86 12/02/19 15:45 Pulse Oximetry 100 12/02/19 15:45 MDM - SOB/Dyspnea MDM Narrative: Medical decision making narrative: He did COVID the test the patient have asked him to remain quarantined. We will discharge him home with doxycycline we asked him to quarantine until we call him tomorrow with the results. His chest x-ray is normal and is a low-grade temp at this point. Clinically he appears well enough to be treated as an outpatient.1 p.o. twice daily for 10 days if he has any worsening or changes symptoms return to the emergency room clear he appears well enough to be treated as an outpatient. Lab Data: Labs: Lab Results 12/02/19 12/02/19 12/02/19 Range/Units 16:26 16:26 16:26 WBC 12.5 H (4.0-10.0) 10^3/ uL RBC 4.99 (4.1-5.3) 10^6/u L Hgb 14.2 (11.7-16.6) g/dL Hct 43.5 (42.0-52.0) % MCV 87.2 (80-94) fL MCH 28.5 (28.0-34.0) pg MCHC 32.6 (30.0-36.0) g/dL RDW 16.6 H (12.1-15.1) % Plt Count 274 (130-400) 10^3/c mm MPV 9.1 (7.4-10.4) fL Neut % (Auto) 74.0 % Lymph % (Auto) 15.3 % [place] % (Auto) 9.1 % Eos % (Auto) 1.1 % Baso % (Auto) 0.2 % Neut # (Auto) 9.3 H (1.8-7.7) 10^3/u L Lymph # (Auto) 1.9 (0.8-4.8) 10^3/u L [place] # (Auto) 1.1 H (0.2-0.9) 10^3/u L Eos # (Auto) 0.1 (0.0-0.8) 10^3/u L Baso # (Auto) 0.0 (0.0-0.1) 10^3/u L Nucleated RBC % (a uto) 0 % Nucleated RBCs # 0.0 /100WBC Sodium 132 L (136-145) mmol/L Potassium 4.1 (3.5-5.1) mmol/L Chloride 90 L (98-107) mmol/L Carbon Dioxide 29 (22-29) mmol/L Anion Gap 17.1 (5-19) BUN 15 (8-23) mg/dL Creatinine 0.9 (0.7-1.2) mg/dL Glucose 94 (65-115) mg/dL Calculated Osmolal ity 270 L (285-295) mOsm/k g Lactate 1.9 (0.5-2.2) mmol/L Calcium 10.5 (8.5-10.5) mg/dL Phosphorus 3.1 (2.5-4.5) mg/dL Magnesium 1.8 (1.7-2.3) mg/dL Total Bilirubin 0.5 (0.15-1.2) mg/dL AST 19 (0-40) U/L ALT 19 (0-41) U/L Alkaline Phosphata se 129 (40-130) IU/L Total Protein 7.1 (6.6-8.7) g/dL Albumin 4.0 (3.5-5.2) g/dL Globulin 3.1 (1.3-4.6) g/dL Serum Ketones (Negative) Influenza Type A A g (Negative) Influenza Type B A g (Negative) 12/02/19 12/02/19 Range/Units 16:26 17:10 WBC (4.0-10.0) 10^3/ uL RBC (4.1-5.3) 10^6/u L Hgb (11.7-16.6) g/dL Hct (42.0-52.0) % MCV (80-94) fL MCH (28.0-34.0) pg MCHC (30.0-36.0) g/dL RDW (12.1-15.1) % Plt Count (130-400) 10^3/c mm MPV (7.4-10.4) fL Neut % (Auto) % Lymph % (Auto) % [place] % (Auto) % Eos % (Auto) % Baso % (Auto) % Neut # (Auto) (1.8-7.7) 10^3/u L Lymph # (Auto) (0.8-4.8) 10^3/u L [place] # (Auto) (0.2-0.9) 10^3/u L Eos # (Auto) (0.0-0.8) 10^3/u L Baso # (Auto) (0.0-0.1) 10^3/u L Nucleated RBC % (a uto) % Nucleated RBCs # /100WBC Sodium (136-145) mmol/L Potassium (3.5-5.1) mmol/L Chloride (98-107) mmol/L Carbon Dioxide (22-29) mmol/L Anion Gap (5-19) BUN (8-23) mg/dL Creatinine (0.7-1.2) mg/dL Glucose (65-115) mg/dL Calculated Osmolal ity (285-295) mOsm/k g Lactate (0.5-2.2) mmol/L Calcium (8.5-10.5) mg/dL Phosphorus (2.5-4.5) mg/dL Magnesium (1.7-2.3) mg/dL Total Bilirubin (0.15-1.2) mg/dL AST (0-40) U/L ALT (0-41) U/L Alkaline Phosphata se (40-130) IU/L Total Protein (6.6-8.7) g/dL Albumin (3.5-5.2) g/dL Globulin (1.3-4.6) g/dL Serum Ketones Negative (Negative) Influenza Type A A g Negative (Negative) Influenza Type B A g Negative (Negative) Discharge Plan Discharge Patient Disposition: Home, Self-Care Clinical Impression: Bronchitis Condition: Stable Prescriptions: New doxycycline hyclate 100 mg capsule 100 mg PO BID 10 Days Qty: 20 RF: 0 albuterol sulfate 90 mcg/actuation HFA aerosol inhaler 2 inh INHALATION Q4H PRN (Reason: shortness of breath or wheezing) Qty: 18 RF: 0 No Action methenamine hippurate 1 gram tablet 1 gm PO BID Qty: 60 RF: 6 ascorbate calcium (vitamin C) 500 mg tablet 1 gm PO BID RF: 0 ropinirole 3 mg Tablet 3 mg PO BEDTIME RF: 0 mirtazapine 30 mg Tablet 30 mg PO BEDTIME RF: 0 ferrous sulfate [iron] 325 mg (65 mg iron) Tablet 325 mg PO DAILY RF: 0 buspirone 10 mg tablet 10 mg PO BID Qty: 60 RF: 0 cilostazol 50 mg tablet 50 mg PO DAILY RF: 0 chlorthalidone 25 mg tablet 25 mg PO DAILY RF: 0 Chantix Continuing Month Box 1 mg tablet See Rx Instructions .ROUTE .COMPLEX RF: 0 Chantix Starting Month Box 0.5 mg (11)- 1 mg (42) tablets,dose pack See Rx Instructions .ROUTE .COMPLEX RF: 0 isosorbide mononitrate 20 mg tablet 20 mg PO BID RF: 0 diltiazem HCl [DILT-XR] 240 mg capsule,ext.rel 24h degradable 240 mg PO DAILY RF: 0 pravastatin [Pravachol] 40 mg tablet 40 mg PO BEDTIME RF: 0 tamsulosin [Flomax] 0.4 mg capsule 0.4 mg PO BID RF: 0 pantoprazole [Protonix] 40 mg tablet,delayed release (DR/EC) 40 mg PO DAILY RF: 0 metoprolol tartrate [Lopressor] 50 mg tablet 50 mg PO BID RF: 0 hydrochlorothiazide 25 mg tablet 25 mg PO DAILY RF: 0 albuterol sulfate [Ventolin HFA] 90 mcg/actuation HFA aerosol inhaler 2 puff INHALATION Q4H PRN (Reason: Shortness Of Breath Or Wheezing) RF: 0 fluticasone propionate [Flonase Allergy Relief] 50 mcg/actuation spray,suspension 1 spray INTRANASAL BID RF: 0 Spiriva Respimat 2.5 mcg/actuation mist 1 puff INHALATION BID RF: 0 Eliquis 5 mg tablet 5 mg PO BID RF: 0 thiamine mononitrate (vit B1) [Vitamin B-1 (mononitrate)] 100 mg Tablet 100 mg PO DAILY Qty: 30 RF: 0 Discharge Orders: Discharge Order (Routine); Ordered 12/02/19 Ordered By: Rigoberto Doss Referrals: Corrine Rainey MD [Primary Care Provider] - Discharge Diet: Advance as tolerated Discharge Activity: Resume usual activity Activity Restrictions/Additional Instructions: Turn to the ER if you have worsening problems. 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
[2019-12-02 16:40] LABS: Basophils % 0.2 %; Eosinophils # 0.1 10^3/uL (0.0-0.8); Eosinophils % 1.1 %; Hematocrit 43.5 % (42.0-52.0); Hemoglobin 14.2 g/dL (11.7-16.6); Lymphocytes # 1.9 10^3/uL (0.8-4.8); Lymphocytes % 15.3 %; Mean Corpuscular HGB Conc 32.6 g/dL (30.0-36.0); Mean Corpuscular Hemoglobin 28.5 pg (28.0-34.0); Mean Corpuscular Volume 87.2 fL (80-94); Mean Platelet Volume 9.1 fL (7.4-10.4); Monocytes # 1.1 10^3/uL (0.2-0.9); Monocytes % 9.1 %; Neutrophils # 9.3 10^3/uL (1.8-7.7); Nucleated Red Blood Cells % 0 %; Platelet Count 274 10^3/cmm (130-400); Red Blood Count 4.99 10^6/uL (4.1-5.3); Red Cell Distribution Width 16.6 % (12.1-15.1); White Blood Count 12.5 10^3/uL (4.0-10.0)
[2019-12-02 16:46] LABS: Ketone (Acetest) Serum Negative (Negative)
[2019-12-02 16:54] LABS: Alanine Aminotransferase 19 U/L (0-41); Alkaline Phosphatase 129 IU/L (40-130); Anion Gap 17.1 (5-19); Aspartate Amino Transferase 19 U/L (0-40); Blood Urea Nitrogen 15 mg/dL (8-23); Calcium 10.5 mg/dL (8.5-10.5); Carbon Dioxide 29 mmol/L (22-29); Chloride 90 mmol/L (98-107); Globulin 3.1 g/dL (1.3-4.6); Glucose 94 mg/dL (65-115); Magnesium 1.8 mg/dL (1.7-2.3); Osmolality Calculated 270 mOsm/kg (285-295); Phosphorus 3.1 mg/dL (2.5-4.5); Potassium 4.1 mmol/L (3.5-5.1); Sodium 132 mmol/L (136-145); Total Bilirubin 0.5 mg/dL (0.15-1.2); Total Protein 7.1 g/dL (6.6-8.7)
[2019-12-02 16:55] LABS: Lactate (Lactic Acid level) 1.9 mmol/L (0.5-2.2)
[2019-12-02 17:39] LABS: Influenza A by IFA Negative (Negative); Influenza B by IFA Negative (Negative)
[2019-12-02 18:32] VITALS: BP 158/88; PULSE 80; RESP 16; O2SAT 98
--- NOTE | 2019-12-03 15:39 | PC.NURSE ---
Patient Damien, notified of negative Covid test at this time.
== END 2019-12-02 18:32 | disposition home or self-care (01) ==
PROVIDERS: Emergency Provider Family Medicine; PCP Family Medicine
DX: J44.9 Chronic obstructive pulmonary disease, unspecified (principal); Z79.01 Long term (current) use of anticoagulants; I48.91 Unspecified atrial fibrillation; Z85.51 Personal history of malignant neoplasm of bladder; E78.5 Hyperlipidemia, unspecified; I10 Essential (primary) hypertension; Z87.891 Personal history of nicotine dependence
CPT/HCPCS: 12345; 36415; 71045; 80053; 82009; 83605; 83735; 84100; 85025; 87040; 87635; 87804; 99281; 99283

== ENCOUNTER 2019-12-17 14:14 | Outpatient (CLI) | payer MEDICARE, MEDICAID, SELFPAY ==
--- NOTE | 2019-12-17 14:22 | CT_ITS ---
WS: [id number] CT CHEST TECHNIQUE: Contrast enhanced CT of the chest with coronal and sagittal reformatted images. CLINICAL INFORMATION: COUGH COMPARISON: CT chest and CTA February 16, 2019 DLP: 973.[address] scans at [facility] use at least one of these dose optimization techniques: automat ed exposure control; mA and/or kV adjustment per patient size (includes targeted exams where dose is matched to clinical indication); or iterative reconstruction. FINDINGS: Moderate chronic emphysematous changes. Scattered parenchymal fibrosis is unchanged. No suspicious pu lmonary parenchymal abnormalities. No acute pulmonary infiltrates. No focal pneumonia or pleural flui d. No mediastinal or hilar lymphadenopathy. No axillary lymphadenopathy. Moderate aortic atheromatous disease. Coronary calcification. Stable lower pole right thyroid nodule. Partially visualized hepatic cysts/cavernous hemangiomas. Normal visualized thoracic spine. CT/CT chest w con* [id number] IMPRESSION: 1. Moderate chronic emphysematous changes. No acute pulmonary infiltrates. 2. No focal pneumonia. No pleural fluid. 3. No mediastinal or hilar lymphadenopathy. 4. Moderate atheromatous disease thoracic aorta. Coronary calcification. 5. Partially visualized small hepatic cysts and right hepatic cavernous clara ioma measuring 5.4 CM. This appears stable from prior studies.
[2019-12-17] MEDS: iohexol 300 mg/mL 100 mL Btl IV (14:42)
== END 2019-12-17 14:15 | disposition home or self-care (01) ==
PROVIDERS: Family Provider Family Medicine; PCP Family Medicine; Visit Provider Family Medicine
DX: R05 Cough (principal); J43.9 Emphysema, unspecified; I70.0 Atherosclerosis of aorta; I25.10 Atherosclerotic heart disease of native coronary artery without angina pectoris; K76.89 Other specified diseases of liver; D18.09 Hemangioma of other sites
CPT/HCPCS: 71260; Q9967

== ENCOUNTER 2019-12-19 09:08 | Outpatient (CLI) | payer MEDICARE, MEDICAID, SELFPAY ==
--- NOTE | 2019-12-19 09:30 | CT_ITS ---
WS: [id number] CTA ABDOMINAL AORTA WITH RUNOFF TECHNIQUE: Contrast enhanced CTA of the abdominal aorta with bilateral lower extremity runoff. Multip lanar reformatted images were obtained. MIP reformats were also reviewed. CLINICAL INFORMATION: PVD COMPARISON: None. DLP: 1612.[address] scans at [facility] use at least one of these dose optimization techniques: automat ed exposure control; mA and/or kV adjustment per patient size (includes targeted exams where dose is matched to clinical indication); or iterative reconstruction. FINDINGS: Stable right hepatic cavernous hemangioma measuring 5.8 cm. Celiac and SMA are patent. Prox imal renal arteries are patent. Subsegmental atelectasis in the lung bases. Fatty atrophy of the panc reas. Small splenule. Normal GE junction. Adrenal glands are normal. Normal renal parenchymal enhance ment. No hydronephrosis. Mild right ureterectasis is unchanged. Small bilateral renal cysts. Slightly aneurysmal infrarenal abdominal aorta measuring 2.2 x 2.1 cm.Diverticulosis. RIGHT: Mild stenosis at the right common iliac origin. Right common iliac artery is patent. Moderate calcified atheromatous disease right common iliac and internal iliac arteries. External iliac artery is patent with moderate calcified atheromatous disease and mild stenosis. Right common femoral artery is patent. Moderate approximately 40% stenosis involving the right superficial femoral artery. Super ficial femoral artery remains patent with mild to moderate segmental narrowing to the level of the ad ductor hiatus. Deep femoral artery is patent. Irregular ulcerated atheromatous disease in the poplite al fossa with moderate stenosis. Popliteal artery remains patent. Slightly aneurysmal dilatation. Pop liteal artery is patent to the trifurcation. Patent 3 vessel runoff to the ankle. LEFT: Left common iliac artery is patent with approximately 75% stenosis at the origin. Heavily calci fied atheromatous disease. Left common iliac artery is patent. External and internal iliac arteries a re patent. Superficial and deep femoral arteries are patent. Mild narrowing superficial femoral arter y which is patent to the adductor hiatus. Moderate to severe stenosis popliteal artery in the poplite al fossa above the knee. Popliteal artery remains patent to the trifurcation. Patent three-vessel run off to the ankle. CT/CT angio abd aorta runof [id number] IMPRESSION: 1. 75% stenosis of the left common iliac origin with heavily calcified atherom atous disease. 2. Moderate to severe stenosis involving the popliteal artery [id number] i n the popliteal fossa which remains patent. 3. No high-grade flow-limiting stenosis in the right lower extremity. 4. Patent symmetric three-vessel runoff to both ankles. 5. Slightly aneurysmal and ulcerated RIGHT popliteal artery with moderate sten osis in the popliteal fossa above the knee. 6. Stable right cavernous hemangioma measuring 5.8 cm. 7. Slightly aneurysmal infrarenal abdominal aorta measuring 2.2 x 2.4 cm.
[2019-12-19] MEDS: iohexol 350 mg/mL 100 mL Btl IV (09:50)
== END 2019-12-19 09:09 | disposition home or self-care (01) ==
LOC: RADWPI 09:12
PROVIDERS: Family Provider Family Medicine; PCP Family Medicine; Visit Provider Internal Medicine Cardiovascular Disease
DX: I73.9 Peripheral vascular disease, unspecified (principal); I70.8 Atherosclerosis of other arteries; I70.0 Atherosclerosis of aorta; I71.4 Abdominal aortic aneurysm, without rupture; D18.00 Hemangioma unspecified site
CPT/HCPCS: 75635; Q9967

== ENCOUNTER 2020-01-03 14:17 | Outpatient (CLI) | payer MEDICARE, MEDICAID, SELFPAY ==
[2020-01-03 14:54] LABS: Basophils # 0.1 10^3/uL (0.0-0.1); Basophils % 0.5 %; Eosinophils # 0.2 10^3/uL (0.0-0.8); Eosinophils % 1.5 %; Hematocrit 41.4 % (42.0-52.0); Hemoglobin 13.5 g/dL (11.7-16.6); Lymphocytes # 1.9 10^3/uL (0.8-4.8); Lymphocytes % 17.2 %; Mean Corpuscular HGB Conc 32.6 g/dL (30.0-36.0); Mean Corpuscular Hemoglobin 28.1 pg (28.0-34.0); Mean Corpuscular Volume 86.3 fL (80-94); Mean Platelet Volume 8.8 fL (7.4-10.4); Monocytes # 0.8 10^3/uL (0.2-0.9); Monocytes % 7.6 %; Neutrophils # 8.02 10^3/uL (1.8-7.7); Neutrophils % 72.1 %; Nucleated Red Blood Cells % 0 %; Platelet Count 325 10^3/cmm (130-400); Red Cell Distribution Width 16.6 % (12.1-15.1); White Blood Count 11.1 10^3/uL (4.0-10.0)
[2020-01-03 14:58] LABS: INR 1.13 (0.83-1.21); Prothrombin Time (Patient) 14.9 Seconds (12.0-15.1)
[2020-01-03 15:07] LABS: Blood Urea Nitrogen 14 mg/dL (8-23); Calcium 10.7 mg/dL (8.5-10.5); Carbon Dioxide 29 mmol/L (22-29); Chloride 91 mmol/L (98-107); Glucose 121 mg/dL (65-115); Osmolality Calculated 269 mOsm/kg (285-295); Sodium 131 mmol/L (136-145)
== END 2020-01-03 14:18 | disposition home or self-care (01) ==
LOC: LAB 14:21
PROVIDERS: Family Provider Family Medicine; PCP Family Medicine; Visit Provider Internal Medicine Cardiovascular Disease
DX: I73.9 Peripheral vascular disease, unspecified (principal)
CPT/HCPCS: 36415; 80048; 85025; 87635

== ENCOUNTER → 2020-01-20 12:40 | Outpatient (BNVA) | payer MEDICARE, MEDICAID, SELFPAY | PROVIDERS: PCP Family Medicine; Visit Provider Internal Medicine | DX: Z01.812 Encounter for preprocedural laboratory examination (principal) | CPT/HCPCS: 87635 ==

== ENCOUNTER 2020-01-22 13:20 | Observation (INO) | payer MEDICARE, MEDICAID, SELFPAY ==
--- NOTE | 2020-01-06 10:00 | SUR.PREOP ---
ABNORMAL LABWORK KCL NOTED TO BE 3.0 RESULT CALLED TO ANDREW GERONIMO LPN FOR DR BENNETT. RESULT IS FROM 01/02. MAY HAVE BEEN ADDRESSED PRIOR TO TODAY FROM [facility]. UNSURE SO CALLED CLARIFICATION TO ADDRESS PRIOR TO ARRIVAL. SHE STATES SHE WILL LET DR BENNETT KNOW. NO ORDERS RECIEVED AT THIS TIME.
[2020-01-06 10:15] VITALS: BMI 27.2
--- NOTE | 2020-01-07 08:08 | PC.NURSE ---
Pt rescheduled Pt rescheduled this am d/t no hospital beds for pt recovery today. Pt given recovery kit d/t not pt's fault his procedure was cancelled this am and came to hospital via [facility] already this am for check in. Spoke with Adrienne in [facility] and states she will call pt and reschedule him.
[2020-01-21 14:16] VITALS: BMI 27.2
[2020-01-22] VITALS (33 sets, daily range): BP systolic 123–170; BP diastolic 59–90; PULSE 73–99; RESP 16–30; TEMP 36.5–36.8; O2SAT 92–96
[2020-01-22] MEDS: diphenhydrAMINE 50 mg Capsule PO (09:16)
--- NOTE | 2020-01-22 09:51 | SUR.PREOP ---
Pre-op Note A STEMI alert was called, delaying the procedure ahead of Mr. Stringer. This was Explained to him and he verbalized his understanding and that we did not need to notify his contact, Mary. He states that we just need to notify her when the procedure is finished.
[2020-01-22 10:21] LABS: Basophils # 0.1 10^3/uL (0.0-0.1); Basophils % 0.6 %; Eosinophils # 0.3 10^3/uL (0.0-0.8); Eosinophils % 2.1 %; Hematocrit 40.9 % (42.0-52.0); Hemoglobin 13.1 g/dL (11.7-16.6); Lymphocytes # 2.2 10^3/uL (0.8-4.8); Lymphocytes % 18.5 %; Mean Corpuscular Hemoglobin 28.3 pg (28.0-34.0); Mean Corpuscular Volume 88.3 fL (80-94); Mean Platelet Volume 9.2 fL (7.4-10.4); Monocytes # 1.1 10^3/uL (0.2-0.9); Monocytes % 9.5 %; Neutrophils # 8.12 10^3/uL (1.8-7.7); Neutrophils % 67.8 %; Nucleated Red Blood Cells % 0 %; Platelet Count 367 10^3/cmm (130-400); Red Blood Count 4.63 10^6/uL (4.1-5.3); Red Cell Distribution Width 16.6 % (12.1-15.1)
[2020-01-22 10:30] LABS: INR 1.04 (0.8-1.2)
[2020-01-22 10:35] LABS: Anion Gap 13.5 (5-19); Blood Urea Nitrogen 14 mg/dL (8-23); Calcium 9.5 mg/dL (8.5-10.5); Carbon Dioxide 26 mmol/L (22-29); Chloride 97 mmol/L (98-107); Glucose 115 mg/dL (65-115); Osmolality Calculated 273 mOsm/kg (285-295); Potassium 3.5 mmol/L (3.5-5.1); Sodium 133 mmol/L (136-145)
--- NOTE | 2020-01-22 12:18 | W.PM.OPSUD ---
Surgery/Procedure H&P Update DATE OF PROCEDURE: January 22, 2020 DATE H&P PERFORMED: 12/04/19 H&P UPDATE INFORMATION: I have reviewed H&P completed within last 30 days, I have examined patient prior to procedure and No changes to prior documentation PREOP DIAGNOSIS: Lifestyle limiting claudication, failed conservative management including cilostazol and walking exercise, CTA evidence of moderate to severe disease in iliac and SFA of the left PLANNED PROCEDURE: Operation Date: 01/07/20 08:30 Proposed Procedures p Peripheral Diagnostic(Not Applicable) - Dionne Stark MD Operation Date: 01/22/20 10:00 Proposed Procedures p Peripheral Diagnostic(Not Applicable) - Dionne Stark MD PATIENT REASSESSED PRIOR TO SEDATION, WITH NO CHANGE NOTED: Yes PHYSICAL EXAM: alert, oriented x 3 and clear to auscultation bilaterally AIRWAY EVAL/ANESTHESIA PLAN: ASA II, Risks, benefits & alternatives of sedation and/or procedure discussed and Patient agrees to continue as planned ADDITIONAL INFORMATION: All risk benefit and alternative of the procedure was explained. Risk benefit and alternative for drug-coated balloon in the warning was explained. Patient would like to proceed with it.
--- NOTE | 2020-01-22 12:20 | XACV_ITS ---
Wt: 102 kg BSA: 2.35 m2 Any Known Allergies: No known allergies Gender: Male : 1945 Exam Type: Invasive Peripheral Vascular Procedure(s): Procedure Description: Peripheral Cath Diagnostic Procedure Procedure Description: Abdominal aortic angiography Procedure Description: Lower extremities' angiography Exam Priority: Routine Conclusions Reason for peripheral angiogram: Lifestyle limiting claudication, abnormal noninvasive study, abnormal CTA with runoff, failed conservative management with cilostazol and walkingAortogram with runoff: Abdominal aorta luminal irregularity with mild infrarenal aneurysm. Bilateral renal arteries visualized without significant stenosis. Bilateral common iliac arteries without significant stenosis however left common iliac artery appeared to be moderately aneurysmal. Bilateral external and internal iliac artery with luminal irregularities. Bilateral common femoral artery with luminal irregularities. Bilateral profunda femoral artery with luminal irregularities. Bilateral SFA with diffuse luminal irregularities without significant stenosis. Bilateral popliteal artery with luminal irregularities. Bilateral tibioperoneal trunk without significant stenosis. Sluggish flow below the knee noted however good two-vessel runoff was visualized. Probably it is due to lack of contrast. Hemodynamic Data Phase:Rest AO : 113.0 mmHg / 62.0 mmHg ( 80.0 mmHg ) @ 7:44:00 AM 110.0 mmHg / 61.0 mmHg ( 81.0 mmHg ) @ 7:57:00 AM 109.0 mmHg / 61.0 mmHg ( 82.0 mmHg ) @ 7:57:00 AM Access Site Site: Right Femoral artery Sheath Size: 6 Fr Hemost... Method: Suture Hemost... Success: Successful Procedure Details Findings Procedure Consent Obtained. Pre-Procedure Time Out. Identified patient by full name and date of as verbalized by the patient/guarantor. Does the consent match the physician's order: Yes. Accurate & Complete Informed Consent: Yes. Inpatient/Outpatient History & Physical on Chart: Yes. If H&P is completed, is and addenduem needed: No; If yes, is the addendum complete: N/A. Visualize and Verify Site with Patient/Guarantor: N/A. Relevant Radiology Images available: N/A. Pre-op teaching completed and patient verbalized understanding. The risks, benefits, and alternatives of sedation and/or procedure were discussed by physician. The patient agrees to continue. Procedure started. Correct patient, site and procedure confirmed by cath team. PERRLA. Strong, equal hand veneer sheet repairer bilaterally. Lungs clear x 5 lobes. IV Site on Arrival: 18 gauge in the right forearm. IV Fluids: 0.9% NaCl at KVO. 0 mL infused prior to foundry laborer coreroom. Pre Procedural Pulses: bilateral dorsalis pedis was Doppled. Pre Procedural Pulses: bilateral posterior tibial was Doppled. Pre Procedural Pulses: bilateral radial was 3+. Oxygen started at 2liters/min via nasal canula. Pre op diagnosis: lifestyle limiting claudication. bilateral groins was prepped with chloroprep then draped in the usual sterile fashion. Physician notified. Baseline sample Acquired. HR: 79 BPM. Equipment: Peripheral. Physician arrived. Cardiac Cath Pack. ACIST Manifold Kit Model BT 2000. Heparinized Saline (2 units/mL), 1000 mL bag. Physician scrubbed in. Immediate Pre-Procedure Time Out. Correct Patient: Yes; Correct Procedure: Yes; Correct Site: Yes; Correct Patient Position: Yes; Correct Supplies: Yes; Dried Flammable Prep: Yes; Blood Products Available: N/A;. Lidocaine 1% infiltrated to the right groin. Arterial access obtained with micropuncture set. A [employer] 5F UF catheter 65cm was advanced over the wire and used for Abdominal aortogram with runoff. Abdominal aortogram performed in AP @ 10 mL/sec for a total of 30 mL. Catheter out. Short 6 fr sheath exchanged for long 45 cm 6 fr Flexor sheath. Left leg runoff 10 ml for total of 30 ml. Long 45 cm flexor sheath exchanged for short 6 fr sheath. Right leg runoff through sheath 10 ml for total of 30 ml. Physician scrubbed out. A Suture was successful obtaining hemostatsis at the Right Femoral artery insertion site. Sheath(s) sutured into position with 2-0 silk and sterile 4x4's and Op-site applied over the site. No oozing or signs and symptoms of hematoma noted. Arterial sheath flushed and connected to tranducer and pressure bag with heparinized saline. Post Procedure: Pulses reassessed and unchanged. PERRLA. Strong, equal hand veneer sheet repairer bilaterally. No VTE prophylaxis required. Post-op diagnosis: calcified PAD without significant obstruction. Complications: none. Estimated blood loss: 5mL-10mL. Medication's Wasted: Heparin = 4000 units. Total IV fluids: 50 mL. Procedure completed. Patient transferred by bed to 1st floor. Vital chart was stopped. Procedure Medications Start: 12:34 PM Stop: 12:34 PM Medication: Versed Amount: 1 mg Route: I.V. Start: 12:34 PM Stop: 12:34 PM Medication: Fentanyl Amount: 50 mcg Route: I.V. I, the attending physician, have reviewed and verified all procedure medications. Yes, all medications given per verbal order History/Risk Factors Hypertension: Yes Dyslipidemia: Yes Peripheral Arterial Disease (PAD): Yes Myocardial Infarction (MT): No Obesity: No Renal Disease: No Tobacco Use: Former Prior Interventions PCI: No CABG: No Valve Surgery: No Report Signatures Finalized by:Dionne Stark MD on 02/05/2020 12:11:06 PM
--- NOTE | 2020-01-22 13:30 | PC.NURSE ---
Patient arrived to floor from electrical laboratory technician at 1321. Sheath in, connected to pressure bag. Verbal order from dr. hopkins to pull sheath now, RBVO. 2 nurse verification of site, asymptomatic. Neurovascular assessment WNL. Patient oriented to room and call light. Nurse to continue to monitor.
--- NOTE | 2020-01-22 14:00 | PC.NURSE ---
Sheath pulled at 1330 according to protocol. Direct pressure applied for 20 minutes until hemostasis achieved. Site asymptomatic. Dressing applied, CDI. Neurovascular assessment WNL. Patient educated on activity restrictions. No further needs identified at this time.
[2020-01-22] MEDS: metoprolol tartrate 50 mg Tablet PO (17:30)
[2020-01-22] MEDS: BuSPIRONE 10 mg Tablet PO (17:31)
[2020-01-22] MEDS: isosorbide mononitrate 20 mg Tablet PO (17:31)
[2020-01-22] MEDS: tamsulosin 0.4 mg Capsule PO (17:31)
--- NOTE | 2020-01-22 19:15 | PC.NURSE ---
Patient is s/p LHC with no intervention. Patient has right groin dressing in place which remains c,d,i and no s/s of bleeding or hematoma formation observed. Patient c/o aching and cramping legs and is requesting to get up and ambulate. Will attempt to get up at 1930 and watch right closely for any changes. Patient to be discharged this evening per Dr Stark, waiting for orders.
--- NOTE | 2020-01-22 19:38 | PC.NURSE ---
Patient up to ambulate in little way. Ambulated ~150ft. Right groin dressing remains c,d,i with no s/s of bleeding observed. Site is soft with no sign of hematoma formation observed. VS as documented. No other distress observed.
--- NOTE | 2020-01-22 20:10 | PC.NURSE ---
Patient discharged to home. Instruction provided regarding follow up needs and site care. No new Rx ordered. Patient verbalized complete understanding. Patient taken by wheelchair to private vehicle with courtesy van driver waitingMary. Patient denies pain or other discomforts. No distress observed.
--- NOTE | 2020-02-05 17:57 | P.HP_ITS ---
Same Day Surgery H&P Indication for Procedure/HPI DATE OF PROCEDURE: January 22, 2020 CHIEF COMPLAINT/INDICATIONFOR SURGICAL PROCEDURE: Lifestyle limiting claudication PREOP DIAGNOSIS: Lifestyle limiting claudication, failed conservative management including cilostazol and walking exercise, CTA evidence of moderate to severe disease in iliac and SFA of the left PLANNED PROCEDRUE: Operation Date: 01/07/20 08:30 Proposed Procedures p Peripheral Diagnostic(Not Applicable) - Dionne Stark MD Operation Date: 01/22/20 10:00 Proposed Procedures p Peripheral Diagnostic(Not Applicable) - Dionne Stark MD Medications/Allergies* Home Medications 3 Medication Instructions Recorded Confirmed Type Eliquis 5 mg PO BID 07/20/19 01/29/20 History Spiriva Respimat 1 puff INHALATION BID 07/20/19 01/29/20 History albuterol sulfate [Ventolin HFA] 2 puff INHALATION Q4H PRN 07/20/19 01/29/20 History diltiazem HCl [DILT-XR] 240 mg PO DAILY 07/20/19 01/29/20 History fluticasone propionate [Flonase 1 spray INTRANASAL BID 07/20/19 01/29/20 History Allergy Relief] hydrochlorothiazide 25 mg PO DAILY 07/20/19 01/29/20 History isosorbide mononitrate 20 mg PO BID 07/20/19 01/29/20 History metoprolol tartrate [Lopressor] 50 mg PO BID 07/20/19 01/29/20 History pantoprazole [Protonix] 40 mg PO DAILY 07/20/19 01/29/20 History pravastatin [Pravachol] 40 mg PO BEDTIME 07/20/19 01/29/20 History tamsulosin [Flomax] 0.4 mg PO BID 07/20/19 01/29/20 History ferrous sulfate [iron] 325 mg PO DAILY 10/27/19 01/29/20 History mirtazapine 30 mg PO BEDTIME 10/27/19 01/29/20 History ropinirole 3 mg PO BEDTIME 10/27/19 01/29/20 History ascorbate calcium (vitamin C) 500 1 gm PO BID tab 11/05/19 01/29/20 History mg tablet Chantix Continuing Month Box See Rx Instructions .ROUTE .COMPLEX 12/02/19 01/29/20 History Chantix Starting Month Box See Rx Instructions .ROUTE .COMPLEX 12/02/19 01/29/20 History chlorthalidone 25 mg PO DAILY 12/02/19 01/29/20 History cilostazol 50 mg PO DAILY 12/02/19 01/29/20 History Allergies/Adverse Reactions Allergy/AdvReac Type Severity Reaction Status Date / Time No Known Allergies Allergy Verified 01/27/20 11:15 Pertinent History/Comorbid Conditions* Medical History (Updated 02/04/20 @ 11:27 by Tracy Trotter APRN) Anxiety and depression Atrial fibrillation Bladder cancer Chronic anticoagulation Chronic cystitis COPD (chronic obstructive pulmonary disease) Enlarged prostate Genital lesion, male History of prostate cancer Hyperlipidemia Hypertension Iron deficiency anemia Peripheral vascular disease of extremity Renal calculi Surgical History (Updated 11/05/19 @ 13:18 by Wes Sheth MD) H/O eye surgery H/O eye surgery detached retina left eye History of colonoscopy (~2004) History of laparotomy History of lithotripsy History of ureter stent Family History (Updated 10/30/19 @ 10:17 by Chelsi Vizcaino LPN) Father, at age 72 Mother, at age 94 CAD (coronary artery disease) Heart disease Mother Father Brother Renal disease Father Hypertension Mother Social History Smoking and tobacco status: former smoker Alcohol intake: current Alcohol intake frequency: 3 or more drinks per day Alcohol type: hard liquor Adopted: No Caregiver/support person: No Lives independently: Yes Marital status: Single Current occupational status: retired History of recent travel: No Pertinent Exam Findings alert, oriented x 3, clear to auscultation bilaterally, regular rate & rhythm and operative site marked Related Problem List Diagnoses (1) Peripheral vascular disease of extremity: (2) Hypertension: Qualifiers: Hypertension type: essential hypertension Qualified Code(s): I10 - Essential (primary) hypertension Recommendations Surgery/Procedure today Coding Level of Care Code Acute Pet Care Attendant for [facility] Fwd Diagnoses Peripheral vascular disease of extremity I73.9 Hypertension I10 Hypertension type: essential hypertension
== END 2020-01-22 20:12 | disposition home or self-care (01) ==
LOC: CSU 19:52
PROVIDERS: Admitting Provider Internal Medicine Cardiovascular Disease; PCP Family Medicine; Visit Provider Internal Medicine Cardiovascular Disease
DX: I73.9 Peripheral vascular disease, unspecified (principal); I10 Essential (primary) hypertension; I48.91 Unspecified atrial fibrillation; J44.9 Chronic obstructive pulmonary disease, unspecified; E78.5 Hyperlipidemia, unspecified; Z79.01 Long term (current) use of anticoagulants; Z87.891 Personal history of nicotine dependence
CPT/HCPCS: 12345; 36415; 75625; 75716; 80048; 85025; 85610; 94640; C1769; C1887; C1894; G0378; J1644; J2250; J3010; J3535; Q0163; Q9967

== ENCOUNTER → 2020-01-27 11:45 | Outpatient (BNVA) | payer MEDICARE, MEDICAID, SELFPAY | PROVIDERS: PCP Family Medicine; Visit Provider Nurse Practitioner Family | DX: I73.9 Peripheral vascular disease, unspecified (principal) | CPT/HCPCS: 80048 ==

== ENCOUNTER → 2020-01-29 11:22 | Outpatient (BNVA) | payer MEDICARE, MEDICAID, SELFPAY | PROVIDERS: PCP Family Medicine; Visit Provider Urology | DX: N30.40 Irradiation cystitis without hematuria (principal); C67.8 Malignant neoplasm of overlapping sites of bladder; C67.9 Malignant neoplasm of bladder, unspecified | CPT/HCPCS: 80053; 81001; 87077; 87086; 87186 ==

== ENCOUNTER → 2020-04-17 13:03 | Outpatient (BNVA) | payer MEDICARE, MEDICAID, SELFPAY | PROVIDERS: PCP Family Medicine; Visit Provider Surgery | DX: Z11.59 Encounter for screening for other viral diseases (principal); K92.1 Melena | CPT/HCPCS: 87635 ==

== ENCOUNTER 2020-04-22 06:18 | Day surgery (SDC) | payer MEDICARE, MEDICAID, SELFPAY ==
[2020-04-17 09:27] VITALS: BMI 27.3
[2020-04-22 06:29] VITALS: BP 117/75; PULSE 108; RESP 18; TEMP 36.3; O2SAT 95
[2020-04-22] MEDS: sodium chloride 0.9% 1,000 ML 30 ML IV (06:42)
--- NOTE | 2020-04-22 06:43 | W.PM.OPSUD ---
Surgery/Procedure H&P Update DATE OF PROCEDURE: April 22, 2020 DATE H&P PERFORMED: 03/26/20 H&P UPDATE INFORMATION: I have reviewed H&P completed within last 30 days, I have examined patient prior to procedure and No changes to prior documentation PREOP DIAGNOSIS: Blood in stool PRIMARY INDICATION FOR PROCEDURE: The same PLANNED PROCEDURE: Operation Date: 04/22/20 07:30 Proposed Procedures p EGD(Not Applicable) - Serge Vila MD s Colonoscopy(Not Applicable) - Serge Vila MD
--- NOTE | 2020-04-22 06:57 | ANES.PREANE2 ---
Pre-Anesthetic Assessment Pre-Anesthetic Assessment: Height/Weight: Height 1.93 m Weight 102.058 kg Temp Pulse Resp BP Pulse Ox 97.4 F L 108 H 18 117/75 95 04/22/20 06:29 04/22/20 06:29 04/22/20 06:29 04/22/20 06:29 04/22/20 06:29 Preop Diagnosis: Blood in stool Proposed Procedure: Operation Date: 04/22/20 07:30 Proposed Procedures p EGD(Not Applicable) - Serge Vila MD s Colonoscopy(Not Applicable) - Serge Vila MD Last intake: Intake Last Liquid Date 04/21/20 Last Liquid Time 23:00 Last Solid Date 04/20/20 Last Solid Time 12:00 Social: Social History: Alcohol (hx alcoholism quit 16 years ago) and No tobacco Exam: Pre-Anes Outpt Exam: alert and oriented x 3 Airway: MP: 2 Dentition: Other (edentulous) Pulmonary: Pulmonary: COPD, Orthopnea and SOB CV/HEM: CV/HEM: Afib, Arrythmia and HTN GI: GI: GERD Comments: blood in stool Musc/skel: Musc/skel: OA/DJD Anesthetic Plan: ASA status: 3 Anesthesia: Anesthesia Evaluation and MAC Risk of > 500 ml blood loss (7ml/kg in children): No Meds/Allergies Current Medications: Current Medications Generic Name Dose Route Start Last Admin Trade Name Freq PRN Reason Stop Dose Admin Sodium Chloride 1,000 mls @ 30 ml s/hr 04/22/20 06:30 04/22/20 06:42 Sodium Chloride 0.9% IV 04/23/20 06:29 30 mls/hr .Q24H NIKHIL Administration PFSH Anesthesia PFSH: Medical History Anxiety and depression Atrial fibrillation Bladder cancer Chronic anticoagulation Chronic cystitis COPD (chronic obstructive pulmonary disease) Enlarged prostate Genital lesion, male History of prostate cancer Hyperlipidemia Hypertension Iron deficiency anemia Peripheral vascular disease of extremity Renal calculi Surgical History H/O eye surgery H/O eye surgery detached retina left eye History of colonoscopy (~2004) History of laparotomy History of lithotripsy History of ureter stent Family History Mother , at age 94 Hypertension Heart disease Father , at age 72 Renal disease Heart disease Brother Heart disease Other CAD (coronary artery disease) Cancer Denies family history of Anesthesia complication Bleeding disorder Social History Smoking and tobacco status: former smoker Alcohol intake: current Alcohol intake frequency: 3 or more drinks per day Adopted: No Caregiver/support person: No Lives independently: Yes Marital status: Single Current occupational status: retired History of recent travel: No Data Anesthesia Cardiac Studies: No Data to Display
--- NOTE | 2020-04-22 07:08 | P.ANESUD_ITS ---
Pre-Anesthetic Update Pre-Anesthetic Assessment: Date of Surgery/Procedure: 04/22/20 Preop Myrtle gnosis: Blood in stool Proposed Procedure: Operation Date: 04/22/20 07:30 Proposed Procedures p EGD(Not Applicable) - Serge Vila MD s Colonoscopy(Not Applicable) - Serge Vila MD Last Intake: Intake Last Liquid Date 04/21/20 Last Liquid Time 23:00 Last Solid Date 04/20/20 Last Solid Time 12:00 Vitals: Temperature 97.4 F L 04/22/20 06:29 Temperature Source Tympanic 04/22/20 06:29 Pulse Rate 108 H 04/22/20 06:29 Respiratory Rate 18 04/22/20 06:29 Blood Pressure 117/75 04/22/20 06:29 Blood Pressure Lilly n 89 04/22/20 06:29 Pulse Oximetry 95 04/22/20 06:29 Oxygen Delivery Me thod 04/22/20 06:29 Exam: Pre-Anes Outpt Exam: clear to auscultation bilaterally (rhonci in RUL and RLL ) Cardiac Studies: No Data to Display
[2020-04-22 08:28] VITALS: BP 127/71; PULSE 105; RESP 20; TEMP 36.3; O2SAT 94
[2020-04-22 08:46] VITALS: BP 123/73; PULSE 89; RESP 18; O2SAT 97
--- NOTE | 2020-04-22 11:07 | ANE.PACU2 ---
Inpatient post-anesthesia follow up: Airway intact: Yes Vital signs: Temperature 97.3 F Pulse Rate 89 Respiratory Rate 18 Blood Pressure 123/73 Pulse Oximetry 97 Oxygen Delivery Me thod Room Air Oxygen Flow Rate Fraction of Inspir ed Oxygen Hydration adequate: Yes Nausea and vomiting: No Pain level: 1 Mental status: Baseline
[2020-04-23 05:56] LABS: H. Pylori / CLO Test Negative
== END 2020-04-22 09:05 | disposition home or self-care (01) ==
PROVIDERS: Visit Provider Surgery
PROC: 0DJ08ZZ Inspection of Upper Intestinal Tract, Via Natural or Artificial Opening Endoscopic (ICD-10-PCS; CPT 43235; principal; 2020-04-22 07:30)
PROC: 0DJD8ZZ Inspection of Lower Intestinal Tract, Via Natural or Artificial Opening Endoscopic (ICD-10-PCS; CPT 45378; 2020-04-22 07:30)
DX: K92.1 Melena (principal); K21.9 Gastro-esophageal reflux disease without esophagitis; K29.70 Gastritis, unspecified, without bleeding; D12.2 Benign neoplasm of ascending colon; K62.1 Rectal polyp; Z79.01 Long term (current) use of anticoagulants; Z85.46 Personal history of malignant neoplasm of prostate; Z85.51 Personal history of malignant neoplasm of bladder; Z87.891 Personal history of nicotine dependence; F10.21 Alcohol dependence, in remission; I48.91 Unspecified atrial fibrillation; J44.9 Chronic obstructive pulmonary disease, unspecified; I10 Essential (primary) hypertension; E78.5 Hyperlipidemia, unspecified
CPT/HCPCS: 12345; 43239; 45380; 45385; 87077; 88305; J2704; J3490; J7030

== ENCOUNTER 2020-05-13 09:11 | Outpatient (CLI) | payer MEDICARE, MEDICAID, SELFPAY ==
[2020-05-13 10:17] LABS: Basophils # 0.1 10^3/uL (0.0-0.1); Basophils % 0.7 %; Eosinophils # 0.3 10^3/uL (0.0-0.8); Eosinophils % 4.1 %; Hematocrit 36.8 % (42.0-52.0); Hemoglobin 11.6 g/dL (11.7-16.6); Lymphocytes # 1.5 10^3/uL (0.8-4.8); Lymphocytes % 17.9 %; Mean Corpuscular HGB Conc 31.5 g/dL (30.0-36.0); Mean Corpuscular Hemoglobin 27.5 pg (28.0-34.0); Mean Corpuscular Volume 87.2 fL (80-94); Mean Platelet Volume 9.4 fL (7.4-10.4); Monocytes # 0.6 10^3/uL (0.2-0.9); Monocytes % 7.5 %; Neutrophils # 5.72 10^3/uL (1.8-7.7); Neutrophils % 69.6 %; Nucleated Red Blood Cells % 0 %; Platelet Count 287 10^3/cmm (130-400); Red Blood Count 4.22 10^6/uL (4.1-5.3); Red Cell Distribution Width 17.8 % (12.1-15.1); White Blood Count 8.2 10^3/uL (4.0-10.0)
[2020-05-13 10:54] LABS: Ferritin 84 ng/mL (30-400); Iron 173 ug/dL (59-158); Percent Saturation 56.9 % (20-50); Total Iron Binding Capacity 304 mcg/dl; Unsaturated Iron Binding 131 ug/dL (112-347)
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
== END 2020-05-13 09:12 | disposition home or self-care (01) ==
LOC: ONCMED 09:17
PROVIDERS: PCP Nurse Practitioner Family; Visit Provider Internal Medicine Hematology & Oncology
DX: D50.9 Iron deficiency anemia, unspecified (principal); I48.91 Unspecified atrial fibrillation; I10 Essential (primary) hypertension; J44.9 Chronic obstructive pulmonary disease, unspecified; Z87.891 Personal history of nicotine dependence; Z85.46 Personal history of malignant neoplasm of prostate; Z79.899 Other long term (current) drug therapy
CPT/HCPCS: 36415; 82728; 83540; 83550; 85025; 99203

== ENCOUNTER 2020-05-28 20:00 | Outpatient (CLI) | payer MEDICARE, MEDICAID, SELFPAY | END 2020-05-28 20:01 | disposition home or self-care (01) | LOC: SLEEP 05-29 09:39 | PROVIDERS: PCP Nurse Practitioner Family; Visit Provider Internal Medicine Critical Care Medicine | DX: G47.10 Hypersomnia, unspecified (principal); R06.83 Snoring; R53.83 Other fatigue; G47.33 Obstructive sleep apnea (adult) (pediatric) | CPT/HCPCS: 87635; 95810 ==

== ENCOUNTER 2020-06-02 06:51 | Observation (INO) | payer MEDICARE, MEDICAID, SELFPAY ==
[2020-06-02] VITALS (12 sets, daily range): BP systolic 122–164; BP diastolic 79–96; PULSE 77–132; RESP 18–28; TEMP 36.4–36.7; O2SAT 95–112; BMI 26.7
--- NOTE | 2020-06-02 07:31 | XRR_ITS ---
PROCEDURE INFORMATION: Exam: XR Chest, 1 View Exam date and time: 06/02/2020 7:55 AM Age: 75 years old Clinical indication: Cough and dyspnea and shortness of breath; Patient HX: HX of bladder and prostate cancer; Additional info: Dyspnea/cough TECHNIQUE: Imaging protocol: XR of the chest Views: 1 view. COMPARISON: CT chest w con* [id number] 12/17/2019 2:39 PM and chest single view 12/02/2019. FINDINGS: Lungs: Rather diffuse interstitial thickening. Atelectasis or superimposed small infiltrates in the lower lungs. Technical density change versus more focal interstitial process in the right upper lobe. Pleural space: Unremarkable. No pleural effusion. No pneumothorax. Heart/Mediastinum: Similar heart size. Vasculature: Calcified thoracic aorta. Bones/joints: Surgical changes of the left shoulder. Electronic device projects partially visible at the left proximal humerus. XR/XR chest 1V portable [id number] IMPRESSION: 1. Atherosclerosis thoracic aorta. 2. Underlying component of chronic interstitial thickening suspect. 3. More focal areas of atelectasis or small infiltrates lower lungs. Correlate for symptoms of pneumonia.
--- NOTE | 2020-06-02 07:31 | ECG_ITS ---
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 Measurements Intervals [place] Rate: 114 P: LA: QRS: 43 QRSD: 102 T: 43 QT: 320 QTc: 442 Interpretive Statements ATRIAL FIBRILLATION WITH RAPID VENTRICULAR RESPONSE LOW QRS VOLTAGE IN EXTREMITY LEADS [QRS DEFLECTION < 0.5 mV IN LIMB LEADS] SEPTAL MYOCARDIAL INFARCTION , OF INDETERMINATE AGE [40+ ms Q WAVE IN V1/V2] Compared to ECG 10/27/2019 16:10:42 Low QRS voltage now present Aberrant conduction of supraventricular beat(s) no longer present Ventricular premature complex(es) no longer present Myocardial infarct finding still present Electronically Signed On 06-02-2020 9:37:27 DATA TECHNICIAN by Yury Fernandez M.D. [id number]
--- NOTE | 2020-06-02 07:46 | ED_ITS ---
HPI - SOB/Dyspnea General: Chief Complaint: Shortness of Breath/Dyspnea Stated Complaint: SOB Time Seen by Provider: 06/02/20 07:10 History of Present Illness: HPI Narrative: 75-year-old male presents to the emergency room with complaints of onset of severe shortness of breath overnight. He has a history of COPD usually is not on oxygen and then today woke up severely short of breath even with minimal exertion just walking in the house. He called EMS on their arrival they reported is O2 sat at room air was 84% discharge him on 15 L/min by none rebreather on arrival here his oxygen sat is 100%. He denies any fever sweats or chills he did have some diarrhea yesterday. He has not had a productive cough. MD elicited complaint: shortness of breath and cough Pertinent past history: COPD Onset (ago): day(s) (2) Timing: constant Severity: severe Exacerbating factors: exertion Relieving factors: oxygen and rest Associated symptoms: Reports cough and nausea; Deny chest pain, fever(s) or orthopnea Treatment prior to arrival: oxygen Review of Systems Const: Denies: fever(s), chills, body aches, change in appetite, fatigue or malaise ENMT: Denies: throat pain, ear or mastoid pain, nasal discharge or nasal congestion Card: Denies: chest pain, edema, dyspnea on exertion or orthopnea Resp: Denies: dyspnea, productive cough or non-productive cough GI: Reports: nausea : Denies: flank pain, dysuria, urinary frequency or urinary urgency Skin/Breast: Denies: rash or pruritus PFS ED PFSH: Medical History Anxiety and depression Atrial fibrillation Bladder cancer Chronic anticoagulation Chronic cystitis COPD (chronic obstructive pulmonary disease) Enlarged prostate Genital lesion, male History of prostate cancer Hyperlipidemia Hypertension Iron deficiency anemia Peripheral vascular disease of extremity Renal calculi Surgical History H/O eye surgery H/O eye surgery detached retina left eye History of colonoscopy (~2004) History of laparotomy History of lithotripsy History of ureter stent Family History Mother , at age 94 Hypertension Heart disease Father , at age 72 Renal disease Heart disease Brother Heart disease Other CAD (coronary artery disease) Cancer Denies family history of Anesthesia complication Bleeding disorder Social History Smoking and tobacco status: former smoker Quit status (tobacco): has quit using tobacco Year quit tobacco: 2020 - 1PPD x 50 Years Second hand smoke exposure: Yes Smoking risk assessment/counseling performed?: No Alcohol intake: former Year of sobriety/quit date alcohol: 2019 Desire information about alcohol rehabilitation?: No Counseling given: No Adopted: No Caregiver/support person: No Lives independently: Yes Household members: none Marital status: Single Current occupational status: retired History of recent travel: No Current gender identity: Male Physical Exam Const: COMMON NORMALS: no acute distress GENERAL APPEARANCE: cooperative and comfortable ORIENTATION/CONSCIOUSNESS: Yes awake, Yes oriented to person, Yes oriented to place and Yes oriented to time HENMT: COMMON NORMALS: normocephalic, atraumatic and hearing grossly normal bilaterally HEAD & SCALP: normocephalic and atraumatic Neck/C-Spine: COMMON NORMALS: no JVD Resp: AUSCULTATION: rhonchi and wheezes Cardio: COMMON NORMALS: no JVD and No murmurs present (Cardio) RATE: tachycardic RHYTHM: abnormal rhythm irregularly irregular GI: COMMON NORMALS: Soft to palpation and No hepatosplenomegaly present AUSCULTATION: Yes normoactive bowel sounds PALPATION: Yes Soft to palpation, No Tenderness to palpation present (GI), No Guarding due to palpation present (GI) and Yes No hepatosplenomegaly present Extremity: COMMON NORMALS: normal to inspection, capillary refill normal, no clubbing, cyanosis or edema, no calf tenderness and no pedal edema Neuro: SENSORIUM/ORIENTATION: Yes oriented to person, Yes oriented to place and Yes oriented to time Skin: COMMON NORMALS: no rashes or lesions noted GENERAL SKIN EXAM: no rashes or lesions noted Course Vital Signs: Vital signs: Vital Signs Temperature 97.5 F L 06/02/20 07:07 Pulse Rate 99 06/02/20 11:46 Respiratory Rate 22 H 06/02/20 11:46 Blood Pressure 143/90 06/02/20 11:46 Pulse Oximetry 98 06/02/20 11:46 MDM - SOB/Dyspnea MDM Narrative: Medical decision making narrative: No PE in the CT scan. Patient does have elevated troponin he has been anticoagulated with consulting cardiology. He has no acute EKG changes. He will be admitted and further evaluated. Lab Data: Labs: Lab Results 06/02/20 06/02/20 06/02/20 Range/Units 07:12 07:12 07:12 WBC 13.5 H (4.0-10.0) 10^3/ uL RBC 4.33 (4.1-5.3) 10^6/u L Hgb 12.3 (11.7-16.6) g/dL Hct 39.6 L (42.0-52.0) % MCV 91.5 (80-94) fL MCH 28.4 (28.0-34.0) pg MCHC 31.1 (30.0-36.0) g/dL RDW 18.4 H (12.1-15.1) % Plt Count 292 (130-400) 10^3/c mm MPV 9.7 (7.4-10.4) fL Neut % (Auto) 71.1 % Lymph % (Auto) 17.3 % Toombs % (Auto) 6.4 % Eos % (Auto) 4.2 % Baso % (Auto) 0.6 % Neut # (Auto) 9.57 H (1.8-7.7) 10^3/u L Lymph # (Auto) 2.3 (0.8-4.8) 10^3/u L Toombs # (Auto) 0.9 (0.2-0.9) 10^3/u L Eos # (Auto) 0.6 (0.0-0.8) 10^3/u L Baso # (Auto) 0.1 (0.0-0.1) 10^3/u L Nucleated RBC % (a uto) 0 % Nucleated RBCs # 0.0 /100WBC D-Dimer 0.97 H (0-0.59) ug/mIFE U Specimen Type Sample Site ABG pH (7.35-7.45) ABG pCO2 (35-45) mmHg ABG pO2 (80.0-100.0) mmH g ABG HCO3 (22-26) mmol/L ABG O2 Saturation ABG Base Excess (-2.0-2.0) mmol/ L Ancelmo Test Hematocrit (42-52) % Hgb O2 Saturation (95-100) % Carboxyhemoglobin (0.4-20.1) %THgb Methemoglobin (0.4-1.5) % Total Hemoglobin (14-18) g/dL Ionized Calcium (1.1-1.4) mmol/L O2 Delivery Device O2 Liters/Min % Information Technology Technician ID Sodium (136-145) mmol/L Potassium (3.5-5.1) mmol/L Chloride (98-107) mmol/L Carbon Dioxide (22-29) mmol/L Anion Gap (5-19) BUN (8-23) mg/dL Creatinine (0.7-1.2) mg/dL GFR Calculation Glucose (65-115) mg/dL Calculated Osmolal ity (285-295) mOsm/k g Calcium (8.5-10.5) mg/dL Total Bilirubin (0.15-1.2) mg/dL AST (0-40) U/L ALT (0-41) U/L Alkaline Phosphata se (40-130) IU/L Creatine Kinase (39-308) U/L Troponin T Baselin e (0-15) ng/L Troponin T 120 Min upper [place] (0-15) ng/L Delta Troponin T (0-10) ABS# C-Reactive Protein (0.0-4.9) mg/L Total Protein (6.6-8.7) g/dL Albumin (3.5-5.2) g/dL Globulin (1.3-4.6) g/dL Urine Color (Yellow) Urine Appearance (CLEAR) Urine pH (5-7) Ur Specific Gravit y (1.005-1.030) Urine Protein (Negative) Urine Glucose (UA) (Normal) Urine Ketones (Negative) Urine Blood (Negative) Urine Nitrate (Negative) Urine Bilirubin (Negative) Urine Urobilinogen (Negative) mg/dL Ur Leukocyte Debora ase (Negative) Amorphous Sediment SARS-CoV-2 Ag (Rap id) Negative (Negative) 06/02/20 06/02/20 06/02/20 Range/Units 07:12 07:12 07:51 WBC (4.0-10.0) 10^3/ uL RBC (4.1-5.3) 10^6/u L Hgb (11.7-16.6) g/dL Hct (42.0-52.0) % MCV (80-94) fL MCH (28.0-34.0) pg MCHC (30.0-36.0) g/dL RDW (12.1-15.1) % Plt Count (130-400) 10^3/c mm MPV (7.4-10.4) fL Neut % (Auto) % Lymph % (Auto) % Toombs % (Auto) % Eos % (Auto) % Baso % (Auto) % Neut # (Auto) (1.8-7.7) 10^3/u L Lymph # (Auto) (0.8-4.8) 10^3/u L Toombs # (Auto) (0.2-0.9) 10^3/u L Eos # (Auto) (0.0-0.8) 10^3/u L Baso # (Auto) (0.0-0.1) 10^3/u L Nucleated RBC % (a uto) % Nucleated RBCs # /100WBC D-Dimer (0-0.59) ug/mIFE U Specimen Type Arterial Sample Site Radial, right ABG pH 7.37 (7.35-7.45) ABG pCO2 42.5 (35-45) mmHg ABG pO2 150.0 H (80.0-100.0) mmH g ABG HCO3 24.5 (22-26) mmol/L ABG O2 Saturation 99.6 ABG Base Excess -0.8 (-2.0-2.0) mmol/ L Ancelmo Test Pos Hematocrit 36.6 L (42-52) % Hgb O2 Saturation 96.4 (95-100) % Carboxyhemoglobin 2.3 (0.4-20.1) %THgb Methemoglobin 1.0 (0.4-1.5) % Total Hemoglobin 11.9 L (14-18) g/dL Ionized Calcium 1.3 (1.1-1.4) mmol/L O2 Delivery Device Nrb O2 Liters/Min 13.0 % Information Technology Technician ID Ed Sodium 135 L 139.0 (136-145) mmol/L Potassium 4.4 3.7 (3.5-5.1) mmol/L Chloride 100 (98-107) mmol/L Carbon Dioxide 22 (22-29) mmol/L Anion Gap 17.4 (5-19) BUN 17 (8-23) mg/dL Creatinine 0.9 (0.7-1.2) mg/dL GFR Calculation Not Reportable Glucose 126 H 117.0 H (65-115) mg/dL Calculated Osmolal ity 283 L (285-295) mOsm/k g Calcium 9.4 (8.5-10.5) mg/dL Total Bilirubin 0.3 (0.15-1.2) mg/dL AST 37 (0-40) U/L ALT 19 (0-41) U/L Alkaline Phosphata se 160 H (40-130) IU/L Creatine Kinase 195 (39-308) U/L Troponin T Baselin e 26 H (0-15) ng/L Troponin T 120 Min upper [place] (0-15) ng/L Delta Troponin T (0-10) ABS# C-Reactive Protein 26.5 H (0.0-4.9) mg/L Total Protein 6.5 L (6.6-8.7) g/dL Albumin 4.1 (3.5-5.2) g/dL Globulin 2.4 (1.3-4.6) g/dL Urine Color (Yellow) Urine Appearance (CLEAR) Urine pH (5-7) Ur Specific Gravit y (1.005-1.030) Urine Protein (Negative) Urine Glucose (UA) (Normal) Urine Ketones (Negative) Urine Blood (Negative) Urine Nitrate (Negative) Urine Bilirubin (Negative) Urine Urobilinogen (Negative) mg/dL Ur Leukocyte Debora ase (Negative) Amorphous Sediment SARS-CoV-2 Ag (Rap id) (Negative) 06/02/20 06/02/20 Range/Units 09:37 10:41 WBC (4.0-10.0) 10^3/ uL RBC (4.1-5.3) 10^6/u L Hgb (11.7-16.6) g/dL Hct (42.0-52.0) % MCV (80-94) fL MCH (28.0-34.0) pg MCHC (30.0-36.0) g/dL RDW (12.1-15.1) % Plt Count (130-400) 10^3/c mm MPV (7.4-10.4) fL Neut % (Auto) % Lymph % (Auto) % Toombs % (Auto) % Eos % (Auto) % Baso % (Auto) % Neut # (Auto) (1.8-7.7) 10^3/u L Lymph # (Auto) (0.8-4.8) 10^3/u L Toombs # (Auto) (0.2-0.9) 10^3/u L Eos # (Auto) (0.0-0.8) 10^3/u L Baso # (Auto) (0.0-0.1) 10^3/u L Nucleated RBC % (a uto) % Nucleated RBCs # /100WBC D-Dimer (0-0.59) ug/mIFE U Specimen Type Sample Site ABG pH (7.35-7.45) ABG pCO2 (35-45) mmHg ABG pO2 (80.0-100.0) mmH g ABG HCO3 (22-26) mmol/L ABG O2 Saturation ABG Base Excess (-2.0-2.0) mmol/ L Ancelmo Test Hematocrit (42-52) % Hgb O2 Saturation (95-100) % Carboxyhemoglobin (0.4-20.1) %THgb Methemoglobin (0.4-1.5) % Total Hemoglobin (14-18) g/dL Ionized Calcium (1.1-1.4) mmol/L O2 Delivery Device O2 Liters/Min % Information Technology Technician ID Sodium (136-145) mmol/L Potassium (3.5-5.1) mmol/L Chloride (98-107) mmol/L Carbon Dioxide (22-29) mmol/L Anion Gap (5-19) BUN (8-23) mg/dL Creatinine (0.7-1.2) mg/dL GFR Calculation Glucose (65-115) mg/dL Calculated Osmolal ity (285-295) mOsm/k g Calcium (8.5-10.5) mg/dL Total Bilirubin (0.15-1.2) mg/dL AST (0-40) U/L ALT (0-41) U/L Alkaline Phosphata se (40-130) IU/L Creatine Kinase (39-308) U/L Troponin T Baselin e (0-15) ng/L Troponin T 120 Min upper [place] 72.14 H (0-15) ng/L Delta Troponin T 46.14 H* (0-10) ABS# C-Reactive Protein (0.0-4.9) mg/L Total Protein (6.6-8.7) g/dL Albumin (3.5-5.2) g/dL Globulin (1.3-4.6) g/dL Urine Color Lilibeth (Yellow) Urine Appearance Cloudy (CLEAR) Urine pH 5 (5-7) Ur Specific Gravit y 1.025 (1.005-1.030) Urine Protein 2+ H (Negative) Urine Glucose (UA) Norm (Normal) Urine Ketones Negative (Negative) Urine Blood 3+ H (Negative) Urine Nitrate Negative (Negative) Urine Bilirubin Neg (Negative) Urine Urobilinogen Norm (Negative) mg/dL Ur Leukocyte Debora ase 1+ H (Negative) Amorphous Sediment Not Reportable SARS-CoV-2 Ag (Rap id) (Negative) Discharge Plan Discharge Patient Disposition: Admitted As Inpatient Clinical Impression: Non-ST elevation AL (NSTEMI), COPD (chronic obstructive pulmonary disease), Suspected 2019-nCoV infection Condition: Stable Prescriptions: No Action ascorbate calcium (vitamin C) 500 mg tablet 1 gm PO BID@ RF: 0 albuterol sulfate 2.5 mg /3 mL (0.083 %) solution for nebulization 2.5 mg inhalation Q6H PRN (Reason: Shortness Of Breath) RF: 0 ropinirole 3 mg Tablet 3 mg PO DAILY@19 RF: 0 mirtazapine 30 mg Tablet 30 mg PO DAILY@18 RF: 0 ferrous sulfate [iron] 325 mg (65 mg iron) Tablet 325 mg PO DAILY@06 RF: 0 cilostazol 50 mg tablet 50 mg PO BID@ RF: 0 Chantix Continuing Month Box 1 mg tablet See Rx Instructions .ROUTE .COMPLEX RF: 0 albuterol sulfate 90 mcg/actuation HFA aerosol inhaler 2 inh INHALATION Q4H PRN (Reason: shortness of breath or wheezing) Qty: 18 RF: 0 sulfamethoxazole-trimethoprim 800-160 mg tablet 1 tab PO BID@ RF: 0 potassium gluconate 595 mg (99 mg) Tablet 595 mg PO DAILY RF: 0 methenamine hippurate 1 gram tablet 1 gm PO BID@ RF: 0 Protonix 40 mg tablet,delayed release (DR/EC) 40 mg PO DAILY@ RF: 0 buspirone 10 mg tablet 10 mg PO BID@ RF: 0 Vitamin B-1 (mononitrate) 100 mg tablet 100 mg PO DAILY@ RF: 0 isosorbide mononitrate 20 mg tablet 20 mg PO BID@ RF: 0 diltiazem HCl [DILT-XR] 240 mg capsule,ext.rel 24h degradable 240 mg PO DAILY@ RF: 0 pravastatin [Pravachol] 40 mg tablet 40 mg PO DAILY@ RF: 0 tamsulosin [Flomax] 0.4 mg capsule 0.4 mg PO DAILY RF: 0 hydrochlorothiazide 25 mg tablet 25 mg PO DAILY@ RF: 0 fluticasone propionate [Flonase Allergy Relief] 50 mcg/actuation spray,susp ension 2 spray INTRANASAL DAILY PRN (Reason: Allergy Symptoms) RF: 0 Spiriva Respimat 2.5 mcg/actuation mist 1 puff INHALATION BID RF: 0 Eliquis 5 mg tablet 5 mg PO BID@ RF: 0 Hold Instructions: Resume on 04/27/20. Referrals: LUIS EDUARDO BATRES PERSONNEL WORKER [Primary Care Provider] - Coding Level of Care Code ED Biscuit Packer for [place] Fwd Exam Comprehensive
[2020-06-02 07:48] LABS: Basophils # 0.1 10^3/uL (0.0-0.1); Basophils % 0.6 %; Eosinophils # 0.6 10^3/uL (0.0-0.8); Eosinophils % 4.2 %; Hematocrit 39.6 % (42.0-52.0); Hemoglobin 12.3 g/dL (11.7-16.6); Lymphocytes # 2.3 10^3/uL (0.8-4.8); Lymphocytes % 17.3 %; Mean Corpuscular HGB Conc 31.1 g/dL (30.0-36.0); Mean Corpuscular Hemoglobin 28.4 pg (28.0-34.0); Mean Corpuscular Volume 91.5 fL (80-94); Mean Platelet Volume 9.7 fL (7.4-10.4); Monocytes # 0.9 10^3/uL (0.2-0.9); Monocytes % 6.4 %; Neutrophils # 9.57 10^3/uL (1.8-7.7); Neutrophils % 71.1 %; Nucleated Red Blood Cells % 0 %; Platelet Count 292 10^3/cmm (130-400); Red Blood Count 4.33 10^6/uL (4.1-5.3); Red Cell Distribution Width 18.4 % (12.1-15.1); White Blood Count 13.5 10^3/uL (4.0-10.0)
[2020-06-02 08:01] LABS: ABG PCO2 42.5 mmHg (35-45); ABG PH Result 7.37 (7.35-7.45); Arterial Blood Gas Hematocrit 36.6 % (42-52); Base Excess ABG -0.8 mmol/L (-2.0-2.0); Blood Gas Allen Test Pos; Blood Gas Sample Type Arterial; Carboxyhemoglobin 2.3 %THgb (0.4-20.1); HCO3 ABG 24.5 mmol/L (22-26); HGB O2 Sat 96.4 % (95-100); Ionized Calcium Level - ABG 1.3 mmol/L (1.1-1.4); Oxygen Saturation ABG 99.6; Potassium Level - ABG 3.7 mmol/L (3.5-5.0); Total Hemoglobin 11.9 g/dL (14-18)
[2020-06-02 08:02] LABS: Blood Gas Operator Identificat ED; Blood Gas Sample Site Radial, right; Oxygen Device NRB
[2020-06-02 08:06] LABS: Troponin(5th) Baseline 26 ng/L (0-15)
[2020-06-02 08:14] LABS: Alanine Aminotransferase 19 U/L (0-41); Albumin Level 4.1 g/dL (3.5-5.2); Alkaline Phosphatase 160 IU/L (40-130); Anion Gap 17.4 (5-19); Aspartate Amino Transferase 37 U/L (0-40); Blood Urea Nitrogen 17 mg/dL (8-23); C Reactive Protein 26.5 mg/L (0.0-4.9); Calcium 9.4 mg/dL (8.5-10.5); Carbon Dioxide 22 mmol/L (22-29); Chloride 100 mmol/L (98-107); Creatine Phosphokinase 195 U/L (39-308); Globulin 2.4 g/dL (1.3-4.6); Glucose 126 mg/dL (65-115); Osmolality Calculated 283 mOsm/kg (285-295); Potassium 4.4 mmol/L (3.5-5.1); Sodium 135 mmol/L (136-145); Total Bilirubin 0.3 mg/dL (0.15-1.2); Total Protein 6.5 g/dL (6.6-8.7)
[2020-06-02 08:23] LABS: D Dimer 0.97 ug/mIFEU (0-0.59)
[2020-06-02 08:41] LABS: SARS Covid-2 Antigen Negative (Negative)
--- NOTE | 2020-06-02 09:31 | ECG_ITS ---
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 Measurements Intervals [place] Rate: 109 P: [place]: QRS: 51 QRSD: 108 T: 38 QT: 335 QTc: 453 Interpretive Statements ATRIAL FIBRILLATION WITH RAPID VENTRICULAR RESPONSE LOW QRS VOLTAGE IN EXTREMITY LEADS [QRS DEFLECTION < 0.5 mV IN LIMB LEADS] SEPTAL MYOCARDIAL INFARCTION , OF INDETERMINATE AGE [40+ ms Q WAVE IN V1/V2] Compared to ECG 06/02/2020 07:48:50 No significant changes Electronically Signed On 06-02-2020 10:00:07 SKATE SHOP ATTENDANT by Yury Fernandez M.D. [id number]
[2020-06-02 10:02] LABS: Troponin 5 2HR 72.14 ng/L (0-15)
[2020-06-02 10:28] LABS: Troponin 5 2HR Delta 46.14 ABS# (0-10)
[2020-06-02] MEDS: heparin 5,000 unit/mL INJ 1 mL 4000 UNIT IVP (10:42)
[2020-06-02] MEDS: nitroglycerin 1 gm/inch oint Pkt 0.5 INCH TOPICAL (10:45)
[2020-06-02] MEDS: metoprolol tartrate 1 mg/1 mL SDV 5 mL 5 MG IV (11:06)
[2020-06-02] MEDS: metoprolol tartrate 25 mg Tablet PO (11:06)
[2020-06-02] MEDS: heparin drip 25,000 UNIT/500 ML PREMIX 28 UNIT IV (11:08)
--- NOTE | 2020-06-02 11:15 | CT_ITS ---
WS: [id number] CT CHEST ANGIOGRAPHY WITH REFORMATS HISTORY: hypoxia TECHNIQUE: Contiguous axial images are obtained through the chest during arterial injection of intrav enous contrast. Images are reconstructed to evaluate the pulmonary arteries. MIP imaging also reviewe d. All CT scans at [facility] use at least one of these dose optimization techniques: aut omated exposure control; mA and/or kV adjustment per patient size (includes targeted exams where dose is matched to clinical indication); or iterative reconstruction. CONTRAST: Omnipaque 350; 95 mL IV. DLP: 1286.08 mGy.cm COMPARISON: 12/17/2019 Excellent opacification of the pulmonary arteries. No pulmonary embolism is identified. Extensive ath erosclerosis thoracic aorta. No aneurysm. Marked enlargement of the LEFT heart chambers. LEFT atrial dilatation to 6.7 cm in diameter. No pericardial effusion. Bilateral lower lobe areas of opacification are probably a combination of atelectasis and a small marylin unt of fluid. Small RIGHT pleural effusion. Developing pneumonia not excluded. Chronic emphysema. Foc al linear scar in the central RIGHT upper lobe. Similar to the prior study. Enlarged LEFT paratrachea l lymph nodes measuring up to 1.7 cm. There are several mediastinal and hilar lymph nodes which have increased in size since 12/17/2019. Marked fluid distention of the stomach. Atherosclerosis of the suprarenal aorta. CT/CT angio chest PE protcl [id number] IMPRESSION: 1. No pulmonary embolism. 2. Bibasilar peripheral opacifications are probably atelectasis with small RIG HT pleural effusions. Developing pneumonia may appear similar. 3. Enlarging LEFT paratracheal lymph nodes since 12/17/2019. These may be reacti ve. 4. Chronic emphysema. 5. Marked LEFT atrial enlargement.
[2020-06-02] MEDS: clopidogrel 300 mg Tablet PO (11:24)
[2020-06-02] MEDS: iohexol 350 mg/mL 100 mL Btl IV ×2 (11:44→11:45)
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
[2020-06-02 11:58] LABS: Urine Appearance Cloudy (CLEAR); Urine Color Amber (Yellow); pH Urine 5 (5-7)
[2020-06-02 11:59] LABS: Add Urine Microscopic? YES; Bilirubin Urine Neg (Negative); Blood Urine 3+ (Negative); Glucose Urine UA Norm (Normal); Ketones Urine Negative (Negative); Leukocyte Esterase Urine 1+ (Negative); Nitrate Urine Negative (Negative); Protein Urine 2+ (Negative); Specific Gravity, Urine 1.025 (1.005-1.030); Urobilinogen Urine Norm (Negative)
[2020-06-02 12:00] LABS: RBC Urine TOO NUMEROUS TO CNT /hpf (0-2); WBC Urine 40-55 /hpf (0-5)
[2020-06-02 12:01] LABS: Add Urine Culture? Yes; Bacteria Urine 2+ /hpf; Calcium Oxalate Crystals Urine 55-80 /hpf; Squamous Epithelial Cell Urine 0-4 /hpf (0-5)
--- NOTE | 2020-06-02 13:31 | ECG_ITS ---
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 Measurements Intervals [place] Rate: 86 P: [place]: QRS: 38 QRSD: 85 T: 44 QT: 364 QTc: 437 Interpretive Statements ATRIAL FIBRILLATION LOW QRS VOLTAGE IN EXTREMITY LEADS [QRS DEFLECTION < 0.5 mV IN LIMB LEADS] ABNORMAL RHYTHM ECG Compared to ECG 06/02/2020 09:51:41 Myocardial infarct finding no longer present Electronically Signed On 06-02-2020 18:37:41 PENOLOGY PROFESSOR by Yury Fernandez M.D. [id number]
[2020-06-02] MEDS: ropinirole 0.25 mg Tablet 0.5 MG PO (14:05)
[2020-06-02 14:53] LABS: Troponin 5 6HR 62.52 ng/L (0-15)
[2020-06-02 15:02] LABS: Troponin 5 6HR Delta 36.52 ng/L (0-12)
[2020-06-02] MEDS: sodium chloride 0.9% 500 ML 999 ML IV (15:21)
[2020-06-02] MEDS: levofloxacin-dextrose 5 % 750 MG/150 ML PREMIX 100 MG IV (15:56)
[2020-06-02 16:59] LABS: Procalcitonin 0.14 ng/mL (0-0.5)
--- NOTE | 2020-06-02 18:29 | PC.NURSE ---
patient has [facility]
[2020-06-02] MEDS: isosorbide mononitrate 20 mg Tablet PO (19:32)
[2020-06-02] MEDS: atorvastatin 40 mg Tablet PO (19:33)
[2020-06-02] MEDS: BuSPIRONE 10 mg Tablet PO (19:33)
[2020-06-02] MEDS: mirtazapine 30 mg Tablet PO (19:33)
[2020-06-02 20:44] LABS: INR 1.15 (0.8-1.2)
[2020-06-02 20:45] LABS: Partial Thromboplastin Time 50.9 SECONDS (23.9-36.7)
[2020-06-02 20:46] LABS: Fibrinogen 549 mg/dL (174-498)
[2020-06-02] MEDS: albuterol 8 gm MDI 2 PUFF INHALATION (20:53)
[2020-06-02 21:03] LABS: Platelet Count 292 10^3/cmm (130-400)
[2020-06-02] MEDS: heparin 5,000 unit/mL INJ 1 mL IV (21:34)
--- NOTE | 2020-06-02 23:34 | P.CONIM_ITS ---
Providers/Reason For Consult Consulting Physican/Specialty*: MAXIME Yip MD/cardiology Reason for Consult*: Patient with chest pain and elevated troponin T Attending Physician: Brianda Clark Primary Care Provider: LUIS EDUARDO BATRES History of Present Illness History of Present Illness Damien Stringer is a 75 year old male is admitted to hospital with profound hypoxia, atrial fibrillation rapid ventricular rate and elevated troponin T. Patient has a presumptive diagnosis of COVID-19 pneumonia. This patient is being followed by Dr. Stark as an outpatient for the atrial fibrillation oral anticoagulation. He has been in his baseline state of health up until 3 days prior to the hospital admission when he started having some feeling of weakness and shortness of breath. He had one episode of diarrhea. Because of the worsening shortness of breath, he was brought to the emergency room. He was found to be in atrial fibrillation rapid ventricular rate. He also had some features of pneumonia in the chest x-ray. The COVID-19 rapid test was negative. However the PCR test is pending. Patient was seen through telemedicine. He never had any chest pain. No palpitation or dizziness. No syncopal episode. He has been compliant with medications. Denies any fever or chills. No severe cough. He is known to have COPD/reactive airway disease. Also has a history of peripheral artery disease. He had a peripheral angiogram in January of last year and was found to have mild disease. He had a 2 stress test in the past, the most recent one was a year ago. He was found to have no evidence of ischemia based on the perfusion scan. Patient has a strong family history for premature atherosclerotic heart disease. 2 of his paternal uncles had a myocardial infarction in their late 30s and l early 40s. He has a history of smoking abuse for 30 years or so. Used to smoke 1 pack a day. Quit smoking 6 months ago. No alcohol abuse or any other substance abuse. Review of Systems Narrative: CONSTITUTIONAL: No fever or chills. Feeling of weakness and shortness of breath as mentioned above. EYES: No blurring of vision or other visual disturbances lately. ENT: No hoarseness of voice, auditory disturbances or sore throat. CARDIOVASCULAR: As mentioned above. RESPIRATORY: As mentioned above. GASTROINTESTINAL: Diarrhea as mentioned above. GENITOURINARY: No dysuria or hematuria. INTEGUMENTARY: No skin rashes or history of skin cancer. NEURO: No transient ischemic attacks or amaurosis. PSYCHIATRIC: No history of psychosis or major depression. HEMATOLOGIC: No bleeding disorders or significant anemia. ENDOCRINE: No history of polyuria or polydipsia. MUSCULOSKELETAL: No recent joint pain or swelling. ALLERGY/IMMUNOLOGY: As mentioned above. Meds/Allergies Home Medications and Allergies Home Medications Medication Instructions Recorded Confirmed Last Taken Type Eliquis 5 mg PO BID@,07/20/19 06/02/20 04/19/20 History Spiriva Respimat 1 puff INHALATION BID 07/20/19 06/02/20 04/21/20 History diltiazem HCl [DILT-XR] 240 mg PO DAILY@07/20/19 06/02/20 04/22/20 05:30 History fluticasone propionate [Flonase 2 spray INTRANASAL DAILY PRN 07/20/19 06/02/20 04/21/20 History Allergy Relief] hydrochlorothiazide 25 mg PO DAILY@07/20/19 06/02/20 04/21/20 History isosorbide mononitrate 20 mg PO BID@07/20/19 06/02/20 04/21/20 History pravastatin [Pravachol] 40 mg PO DAILY@07/20/19 06/02/20 04/21/20 History tamsulosin [Flomax] 0.4 mg PO DAILY 07/20/19 06/02/20 04/21/20 History ferrous sulfate [iron] 325 mg PO DAILY@10/27/19 06/02/20 04/21/20 History mirtazapine 30 mg PO DAILY@10/27/19 06/02/20 04/21/20 History ropinirole 3 mg PO DAILY@10/27/19 06/02/20 04/21/20 History ascorbate calcium (vitamin C) 500 1 gm PO BID@,18 tab 11/05/19 06/02/20 04/21/20 History mg tablet Chantix Continuing Month Box See Rx Instructions .ROUTE .COMPLEX 12/02/19 06/02/20 04/21/20 History albuterol sulfate 2 inh INHALATION Q4H PRN #18 gm 12/02/19 06/02/20 04/21/20 Rx cilostazol 50 mg PO BID@06,12/02/19 06/02/20 04/21/20 History albuterol sulfate 2.5 mg INHALATION Q6H PRN 05/21/20 06/02/20 Unknown History Vitamin B-1 (mononitrate) 100 mg PO DAILY@06/02/20 06/02/20 Unknown History buspirone 10 mg PO BID@,06/02/20 06/02/20 Unknown History methenamine hippurate 1 gm PO BID@,06/02/20 06/02/20 Unknown History pantoprazole [Protonix] 40 mg PO DAILY@06/02/20 06/02/20 Unknown History potassium gluconate 595 mg PO DAILY 06/02/20 06/02/20 Unknown History sulfamethoxazole-trimethoprim 1 tab PO BID@,06/02/20 06/02/20 Unknown History Allergies Allergy/AdvReac Type Severity Reaction Status Date / Time No Known Allergies Allergy Verified 06/02/20 09:19 Current Medications Current Medications Generic Name Dose Route Start Last Admin Trade Name Freq PRN Reason Stop Dose Admin Albuterol Sulfate 2 puff 06/02/20 16:00 06/02/20 20:53 Albuterol 8 Gm Mdi INHALATION 2 puff Q4H.RESPIRATORY PRN Administration SHORTNESS OF BREATH Atorvastatin Calcium 40 mg 06/02/20 21:00 06/02/20 19:33 Atorvastatin 40 Mg Tablet PO 40 mg BEDTIME NIKHIL Administration Buspirone HCl 10 mg 06/02/20 18:30 06/02/20 19:33 Buspirone 10 Mg Tablet PO 10 mg BID@,18 NIKHIL Administration Heparin Sodium (Beef Lung) 0 unit 06/02/20 10:32 06/02/20 21:34 Heparin 5,000 Unit/Ml Inj 1 Ml IV 2,000 unit PRN PRN Administration Heparin weight-base protocol Protocol Heparin Sodium/Sodium Chloride 25,000 unit in 500 mls @ 0 mls/hr 06/02/20 10:45 06/02/20 11:08 Heparin Drip IV 14.03 unit/kg/hr .Q0M NIKHIL 28 mls/hr Administration Protocol Per Protocol Levofloxacin/Dextrose 750 mg in 150 mls @ 100 mls/hr 06/02/20 15:30 06/02/20 15:56 Levaquin-D5w IV 100 mls/hr Q24H NIKHIL Administration Protocol Isosorbide Mononitrate 20 mg 06/02/20 18:30 06/02/20 19:32 Isosorbide Mononitrate 20 Mg Tablet PO 20 mg BID@,18 NIKHIL Administration Methylprednisolone Sodium Succinate 40 mg 06/02/20 15:30 06/02/20 15:56 Methylprednisolone Sod Succ 40 Mg/Ml Inj IVP 40 mg Q8H NIKHIL Administration Mirtazapine 30 mg 06/02/20 19:00 06/02/20 19:33 Mirtazapine 30 Mg Tablet PO 30 mg DAILY@18 NIKHIL Administration Fluticasone/Salmeterol 1 puff 06/02/20 20:00 06/02/20 20:53 Fluticasone-Salmeterol 250-50 Diskus INHALATION 1 puff BID.RESPIRATORY NIKHIL Administration PFSH Acute PFSH: Medical History (Updated 06/03/20 @ 13:14 by Duy Yip MD) Anxiety and depression Atrial fibrillation Bladder cancer Chronic anticoagulation Chronic cystitis COPD (chronic obstructive pulmonary disease) Enlarged prostate Genital lesion, male History of prostate cancer Hyperlipidemia Hypertension Iron deficiency anemia Mitral regurgitation Peripheral vascular disease of extremity Renal calculi Surgical History H/O eye surgery H/O eye surgery detached retina left eye History of colonoscopy (~2004) History of laparotomy History of lithotripsy History of ureter stent Family History Mother , at age 94 Hypertension Heart disease Father , at age 72 Renal disease Heart disease Brother Heart disease Other CAD (coronary artery disease) Cancer Denies family history of Anesthesia complication Bleeding disorder Social History Smoking and tobacco status: former smoker Quit status (tobacco): has quit using tobacco Year quit tobacco: 2020 - 1PPD x 50 Years Second hand smoke exposure: Yes Smoking risk assessment/counseling performed?: No Alcohol intake: former Year of sobriety/quit date alcohol: 2019 Desire information about alcohol rehabilitation?: No Counseling given: No Adopted: No Caregiver/support person: No Lives independently: Yes Household members: none Marital status: Single Current occupational status: retired History of recent travel: No Current gender identity: Male Vitals/I&O/Wt Last Vital Signs Temp 98.0 F 06/02/20 19:18 Pulse 79 06/02/20 20:55 Resp 18 06/02/20 20:53 BP 138/82 06/02/20 19:18 Pulse Ox 95 06/02/20 20:53 06/02/20 06/02/20 06/03/20 14:59 22:59 06:59 Intake Total 400 / 400 Output Total / Balance 375 / 375 Weight last 48 hrs Weight 220 lb Physical Exam Narrative: EXAM NARRATIVE: I did not do the physical examination, since the patient is in the Covid unit. Please refer to the physical examination by Dr. Mancilla. Data Labs: Other Labs: Laboratory Last Values WBC 13.5 10^3/uL (4.0 -10.0) H 06/02/20 07:12 RBC 4.33 10^6/uL (4.1 -5.3) 06/02/20 07:12 Hgb 12.3 g/dL (11.7-1 6.6) 06/02/20 07:12 Hct 39.6 % (42.0-52.0 ) L 06/02/20 07:12 MCV 91.5 fL (80-94) 06/02/20 07:12 MCH 28.4 pg (28.0-34. 0) 06/02/20 07:12 MCHC 31.1 g/dL (30.0-3 6.0) 06/02/20 07:12 RDW 18.4 % (12.1-15.1 ) H 06/02/20 07:12 Plt Count 292 10^3/cmm (130 -400) 06/02/20 20:12 MPV 9.7 fL (7.4-10.4) 06/02/20 07:12 Neut % (Auto) 71.1 % 06/02/20 07:12 Lymph % (Auto) 17.3 % 06/02/20 07:12 [place] % (Auto) 6.4 % 06/02/20 07:12 Eos % (Auto) 4.2 % 06/02/20 07:12 Baso % (Auto) 0.6 % 06/02/20 07:12 Neut # (Auto) 9.57 10^3/uL (1.8 -7.7) H 06/02/20 07:12 Lymph # (Auto) 2.3 10^3/uL (0.8- 4.8) 06/02/20 07:12 [place] # (Auto) 0.9 10^3/uL (0.2- 0.9) 06/02/20 07:12 Eos # (Auto) 0.6 10^3/uL (0.0- 0.8) 06/02/20 07:12 Baso # (Auto) 0.1 10^3/uL (0.0- 0.1) 06/02/20 07:12 Nucleated RBC % (a uto) 0 % 06/02/20 07:12 Nucleated RBCs # 0.0 /100WBC 06/02/20 07:12 PT 15.10 SECONDS (12 .1-14.9) H 06/02/20 20:12 INR 1.15 (0.8-1.2) 06/02/20 20:12 APTT 50.9 SECONDS (23. 9-36.7) H 06/02/20 20:12 Fibrinogen 549 mg/dL (174-49 8) H 06/02/20 20:12 D-Dimer 0.97 ug/mIFEU (0- 0.59) H 06/02/20 07:12 Specimen Type Arterial 06/02/20 07:51 Sample Site Radial, right 06/02/20 07:51 ABG pH 7.37 (7.35-7.45) 06/02/20 07:51 ABG pCO2 42.5 mmHg (35-45) 06/02/20 07:51 ABG pO2 150.0 mmHg (80.0- 100.0) H 06/02/20 07:51 ABG HCO3 24.5 mmol/L (22-2 6) 06/02/20 07:51 ABG O2 Saturation 99.6 06/02/20 07:51 ABG Base Excess -0.8 mmol/L (-2.0 -2.0) 06/02/20 07:51 Ancelmo Test Pos 06/02/20 07:51 Hematocrit 36.6 % (42-52) L 06/02/20 07:51 Hgb O2 Saturation 96.4 % (95-100) 06/02/20 07:51 Carboxyhemoglobin 2.3 %THgb (0.4-20 .1) 06/02/20 07:51 Methemoglobin 1.0 % (0.4-1.5) 06/02/20 07:51 Total Hemoglobin 11.9 g/dL (14-18) L 06/02/20 07:51 Sodium 139.0 mmol/L (131 -143) 06/02/20 07:51 Potassium 3.7 mmol/L (3.5-5 .0) 06/02/20 07:51 Glucose 117.0 mg/dL (70-1 15) H 06/02/20 07:51 Ionized Calcium 1.3 mmol/L (1.1-1 .4) 06/02/20 07:51 O2 Delivery Device Nrb 06/02/20 07:51 O2 Liters/Min 13.0 % 06/02/20 07:51 Care Associate ID Ed 06/02/20 07:51 Sodium 135 mmol/L (136-1 45) L 06/02/20 07:12 Potassium 4.4 mmol/L (3.5-5 .1) 06/02/20 07:12 Chloride 100 mmol/L (98-10 7) 06/02/20 07:12 Carbon Dioxide 22 mmol/L (22-29) 06/02/20 07:12 Anion Gap 17.4 (5-19) 06/02/20 07:12 BUN 17 mg/dL (8-23) 06/02/20 07:12 Creatinine 0.9 mg/dL (0.7-1. 2) 06/02/20 07:12 GFR Calculation Not Reportable 06/02/20 07:12 Glucose 126 mg/dL (65-115 ) H 06/02/20 07:12 Calculated Osmolal ity 283 mOsm/kg (285- 295) L 06/02/20 07:12 Calcium 9.4 mg/dL (8.5-10 .5) 06/02/20 07:12 Total Bilirubin 0.3 mg/dL (0.15-1 .2) 06/02/20 07:12 AST 37 U/L (0-40) 06/02/20 07:12 ALT 19 U/L (0-41) 06/02/20 07:12 Alkaline Phosphata se 160 IU/L (40-130) H 06/02/20 07:12 Creatine Kinase 195 U/L (39-308) 06/02/20 07:12 Troponin T Baselin e 26 ng/L (0-15) H 06/02/20 07:12 Troponin T 120 Min [place] 72.14 ng/L (0-15) H 06/02/20 09:37 Delta Troponin T 46.14 ABS# (0-10) H* 06/02/20 09:37 Troponin T Hi Sens 6Hr 62.52 ng/L (0-15) H 06/02/20 14:23 Troponin T Hi Sens 6Hr Delta 36.52 ng/L (0-12) H* 06/02/20 14:23 C-Reactive Protein 26.5 mg/L (0.0-4. 9) H 06/02/20 07:12 Total Protein 6.5 g/dL (6.6-8.7 ) L 06/02/20 07:12 Albumin 4.1 g/dL (3.5-5.2 ) 06/02/20 07:12 Globulin 2.4 g/dL (1.3-4.6 ) 06/02/20 07:12 Procalcitonin 0.14 ng/mL (0-0.5 ) 06/02/20 14:23 Urine Color Lilibeth (Yellow) 06/02/20 10:41 Urine Appearance Cloudy (CLEAR) 06/02/20 10:41 Urine pH 5 (5-7) 06/02/20 10:41 Ur Specific Gravit y 1.025 (1.005-1.0 30) 06/02/20 10:41 Urine Protein 2+ (Negative) H 06/02/20 10:41 Urine Glucose (UA) Norm (Normal) 06/02/20 10:41 Urine Ketones Negative (Negati ve) 06/02/20 10:41 Urine Blood 3+ (Negative) H 06/02/20 10:41 Urine Nitrate Negative (Negati ve) 06/02/20 10:41 Urine Bilirubin Neg (Negative) 06/02/20 10:41 Urine Urobilinogen Norm mg/dL (Negat kaia) 06/02/20 10:41 Ur Leukocyte Debora ase 1+ (Negative) H 06/02/20 10:41 Urine RBC Too numerous to c nt /hpf (0-2) H 06/02/20 10:41 Urine WBC 40-55 /hpf (0-5) H 06/02/20 10:41 Ur Squamous Epith Cells 0-4 /hpf (0-5) H 06/02/20 10:41 Calcium Oxalate Cr ystal 55-80 /hpf H 06/02/20 10:41 Amorphous Sediment Not Reportable 06/02/20 10:41 Urine Bacteria 2+ /hpf (NONE) H 06/02/20 10:41 SARS-CoV-2 Ag (Rap id) Negative (Negati ve) 06/02/20 07:12 Micro: Micro: Microbiology 06/02/20 09:40 Blood Culture - Pr eliminary Blood [facility] 06/02/20 08:11 Blood Culture - Pr eliminary Blood [facility] Imaging^: Echo: My impression: Echocardiogram done on 06/03/2020 Normal left ventricular size and systolic function, EF60%. (Visual). No gross wall motion abnormalities. Moderately severe mitral regurgitation. Moderately increased left atrial size. Mildly increased right atrial size. Mild tricuspid valve regurgitation. Estimated pulmonary artery peak systolic pressure was 41 mmHg There is no pericardial effusion. There are no intracardiac masses. Compared to the study from 02/16/2019, the mitral regurgitation appears to be new EKG^: EKG 1: My Interpretation: The EKG revealed atrial fibrillation with a controlled ventricular response rate. No acute ST-T changes. Low voltage complexes in the limb leads. A&P Assessment and plan (1) Non-ST elevation MA (NSTEMI): Most likely the elevated troponin T is from the atrial fibrillation rapid ventricular rate. Possibility of an acute myocardial infarction causing this cannot be excluded but my clinical suspicion may be low. He has no significant wall motion of normalities by echocardiogram. LV ejection fraction is within normal limits. Because of the family history for premature atherosclerotic heart disease, it would be appropriate to go ahead and do a myocardial perfusion imaging, to further evaluate his coronary status. Since the patient is asymptomatic, this may be done as an outpatient. Status: Acute (2) Mitral regurgitation: Patient has at least moderately severe mitral regurgitation. He may require a LISSETT, to better evaluate the mitral valve and the mitral regurgitation. Since he is hemodynamically stable, there is no urgency in doing this test at this point. Status: Acute Qualifiers: Cardiac valve disease etiology: nonrheumatic Qualified Code(s): I34.0 - Nonrheumatic mitral (valve) insufficiency (3) Acute respiratory failure with hypoxia: Status: Acute (4) Suspected 2019-nCoV infection: The PCR test is still pending. Status: Acute (5) Peripheral vascular disease of extremity: Patient currently has no specific symptoms of peripheral artery insufficiency. He had only mild peripheral artery disease by the angiogram. May continue on the current medications for the time being. Status: Acute Additional A&P Information If the patient continues remain stable, he may be discharged home from a cardiac standpoint. Consider doing further cardiac work-up as an outpatient. Disposition as per the primary Thank you for the opportunity to evaluate this patient and make these recommendations Coding Level of Care Code Acute Mix House Tender for Juan Delarosa Diagnoses Non-ST elevation MA (NSTEMI) I21.4 Mitral regurgitation I34.0 Cardiac valve disease etiology: nonrheumatic Acute respiratory failure with hypoxia J96.01 Suspected 2019-nCoV infection Z20.828 Peripheral vascular disease of extremity I73.9
[2020-06-03] VITALS (11 sets, daily range): BP systolic 137–153; BP diastolic 70–90; PULSE 71–99; RESP 18–20; TEMP 36.4–37.3; O2SAT 94–98
[2020-06-03] MEDS: albuterol 8 gm MDI 2 PUFF INHALATION ×3 (03:05→14:41)
[2020-06-03 03:24] LABS: Partial Thromboplastin Time 93.8 SECONDS (23.9-36.7)
[2020-06-03 04:30] LABS: Basophils % 0.1 %; Hematocrit 35.5 % (42.0-52.0); Hemoglobin 11.1 g/dL (11.7-16.6); Lymphocytes # 0.9 10^3/uL (0.8-4.8); Lymphocytes % 8.4 %; Mean Corpuscular HGB Conc 31.3 g/dL (30.0-36.0); Mean Corpuscular Hemoglobin 27.9 pg (28.0-34.0); Mean Corpuscular Volume 89.2 fL (80-94); Mean Platelet Volume 9.4 fL (7.4-10.4); Monocytes # 0.2 10^3/uL (0.2-0.9); Monocytes % 2.3 %; Neutrophils # 8.98 10^3/uL (1.8-7.7); Neutrophils % 88.8 %; Nucleated Red Blood Cells % 0 %; Platelet Count 265 10^3/cmm (130-400); Red Blood Count 3.98 10^6/uL (4.1-5.3); Red Cell Distribution Width 18.2 % (12.1-15.1); White Blood Count 10.1 10^3/uL (4.0-10.0)
[2020-06-03] MEDS: dilTIAZem ER (24HR) 240 mg Capsule PO (05:11)
[2020-06-03] MEDS: BuSPIRONE 10 mg Tablet PO ×2 (05:12→17:17)
[2020-06-03] MEDS: pantoprazole DR 40 mg Tablet PO (05:12)
[2020-06-03] MEDS: ferrous sulfate EC 325 mg Tablet PO (05:12)
[2020-06-03] MEDS: cilostazol 100 mg Tablet 50 MG PO ×2 (05:15→17:17)
[2020-06-03] MEDS: isosorbide mononitrate 20 mg Tablet PO ×2 (05:16→17:17)
[2020-06-03] MEDS: tamsulosin 0.4 mg Capsule PO (08:14)
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
[2020-06-03 10:18] LABS: Partial Thromboplastin Time 60.5 SECONDS (23.9-36.7)
[2020-06-03] MEDS: levofloxacin-dextrose 5 % 750 MG/150 ML PREMIX 100 MG IV (16:04)
[2020-06-03] MEDS: mirtazapine 30 mg Tablet PO (17:17)
[2020-06-03] MEDS: apixaban 5 mg Tablet PO (17:17)
[2020-06-03 17:45] LABS: Partial Thromboplastin Time 37.7 SECONDS (23.9-36.7)
--- NOTE | 2020-06-03 17:58 | PC.RESP ---
Pulmonary Rehab information sent to patient.
--- NOTE | 2020-06-03 18:20 | USCV_ITS ---
Stringer Damien Age: 75 Gender: M : 1945 Exam Date: 06/03/2020 07:27 Ordering Phys: Rigoberto Doss DO Technologist: Joyce Hinkle [place] [facility] [place]: NSTEMI BP: 153 / 86 HR: 89 Rhythm: Sinus Technical Quality: Adequate MEASUREMENTS (Male / Female) Normal Values 2D ECHO LV Diastolic Diameter PLAX 6.4 cm 4.2 - 5.9 / 3.9 - 5.3 cm LV Systolic Diameter PLAX 3.7 cm LV Chamber Size 4.7 cm IVS Diastolic Thickness 1.4 cm 0.6 - 1.0 / 0.6 - 0.9 cm IVS Systolic Thickness 1.9 cm LVPW Diastolic Thickness 1.8 cm 0.6 - 1.0 / 0.6 - 0.9 cm LVPW Systolic Thickness 2.1 cm RV Chamber Size 3.6 cm LVOT Diameter 2.0 cm LV Ejection Fraction 2D Teich 71.6 % LV Ejection Fraction MOD 2C 60.9 % LV Ejection Fraction 2C AL 61.0 % LA Diameter 5.2 cm LA Width 4.9 cm LA Height 7.5 cm RA Width 4.8 cm RA Height 6.3 cm Aorta at Sinotubular Diameter 3.8 cm M-MODE LV Diastolic Diameter MM 5.4 cm 4.2 - 5.9 / 3.9 - 5.3 cm LV Systolic Diameter MM 4.3 cm LV Ejection Fraction MM Teich 41.6 % IVS Diastolic Thickness MM 2.3 cm 0.6 - 1.0 / 0.6 - 0.9 cm IVS Systolic Thickness MM 1.8 cm LVPW Diastolic Thickness MM 1.4 cm 0.6 - 1.0 / 0.6 - 0.9 cm LVPW Systolic Thickness MM 1.8 cm RV Diastolic Diameter MM 1.3 cm Aortic Annulus Diameter 4.4 cm LA Ao Ratio MM 1.1 MV E Point Septal Separation 0.6 cm DOPPLER AV Peak Velocity 126.0 cm/s LVOT Peak Velocity 73.0 cm/s AV Area Cont Eq vti 2.7 cm squared AV Area Cont Eq pk 1.9 cm squared MV Area PHT 6.7 cm squared MV E' Velocity 83.5 cm/s Mitral E to MV E' Ratio 10.2 Mitral E to LV E' Lateral Ratio 9.3 Mitral E to LV E' Septal Ratio 11.2 TR Peak Velocity 309.1 cm/s TR Peak Gradient 38.2 mmHg TR Mean Velocity 240.5 cm/s TR Mean Gradient 25.8 mmHg TR Velocity Time Integral 95.2 cm TV Peak E Velocity 79.0 cm/s Right Atrial Pressure 3.0 mmHg Pulmonary Artery Systolic Pressu 41.2 mmHg PV Peak Velocity 50.0 cm/s RV Acceleration Time 0.1 s RV Ejection Time 0.3 s RV AcT/ET 0.3 FINDINGS Left Ventricle Normal left ventricular size and systolic function, EF60%. (Visual). No gross wall motion abnormalities Right Ventricle The right ventricle is normal in size and function. Right Atrium Mildly increased right atrial size. Left Atrium Moderately increased left atrial size. Mitral Valve Thickened mitral valve. Mild mitral annular calcification. Moderately severe mitral regurgitation Aortic Valve Thickened aortic valve. Tricuspid Valve Mild tricuspid valve regurgitation. Pulmonic Valve There is no pulmonic regurgitation. Pericardium No pericardial effusion. Aorta Normal aortic annulus size. CONCLUSIONS Normal left ventricular size and systolic function, EF60%. (Visual). No gross wall motion abnormalities. Moderately severe mitral regurgitation. Moderately increased left atrial size. Mildly increased right atrial size. Mild tricuspid valve regurgitation. Estimated pulmonary artery peak systolic pressure was 41 mmHg There is no pericardial effusion. There are no intracardiac masses. Compared to the study from 02/16/2019, the mitral regurgitation appears to be new Dr Duy Yip MD FAC (Electronically Signed) Final Date: 03 June 2020 12:50 S
[2020-06-03 18:35] LABS: Coronavirus Test Green County Not Detected
[2020-06-03] MEDS: atorvastatin 40 mg Tablet PO (21:44)
--- NOTE | 2020-06-03 21:57 | PC.NURSE ---
Patient moved to 250-1.
[2020-06-04 03:30] VITALS: BP 169/92; PULSE 97; RESP 18; TEMP 36.6; O2SAT 95
[2020-06-04 04:09] LABS: Basophils % 0.1 %; Hematocrit 34.9 % (42.0-52.0); Hemoglobin 10.9 g/dL (11.7-16.6); Lymphocytes # 0.6 10^3/uL (0.8-4.8); Lymphocytes % 5.2 %; Mean Corpuscular HGB Conc 31.2 g/dL (30.0-36.0); Mean Corpuscular Hemoglobin 28.2 pg (28.0-34.0); Mean Corpuscular Volume 90.4 fL (80-94); Mean Platelet Volume 9.8 fL (7.4-10.4); Monocytes # 0.6 10^3/uL (0.2-0.9); Monocytes % 4.6 %; Neutrophils # 10.77 10^3/uL (1.8-7.7); Neutrophils % 89.4 %; Nucleated Red Blood Cells % 0 %; Platelet Count 273 10^3/cmm (130-400); Red Blood Count 3.86 10^6/uL (4.1-5.3); Red Cell Distribution Width 18.6 % (12.1-15.1)
[2020-06-04 04:32] LABS: Chol HDL Ratio 3.24 mg/dL (1.0-5.00); Cholesterol 120 mg/dL (0-200); HDL Cholesterol 37 mg/dL (60-100); LDL Cholesterol Calculated 70 mg/dL (50-129); LDL HDL Ratio 1.89 RATIO (0.00-3.22); Triglycerides 67 mg/dL (0-150)
[2020-06-04 04:36] LABS: Alanine Aminotransferase 17 U/L (0-41); Albumin Level 3.6 g/dL (3.5-5.2); Alkaline Phosphatase 115 IU/L (40-130); Anion Gap 14.1 (5-19); Aspartate Amino Transferase 21 U/L (0-40); Blood Urea Nitrogen 26 mg/dL (8-23); Calcium 9.8 mg/dL (8.5-10.5); Carbon Dioxide 24 mmol/L (22-29); Chloride 104 mmol/L (98-107); Globulin 2.8 g/dL (1.3-4.6); Glucose 135 mg/dL (65-115); Osmolality Calculated 293 mOsm/kg (285-295); Potassium 4.1 mmol/L (3.5-5.1); Sodium 138 mmol/L (136-145); Total Bilirubin 0.2 mg/dL (0.15-1.2); Total Protein 6.4 g/dL (6.6-8.7)
[2020-06-04 04:40] LABS: Estmated Average Glucose 103; Hemoglobin A1C 5.2 % (4.0-6.0)
[2020-06-04] MEDS: BuSPIRONE 10 mg Tablet PO (06:21)
[2020-06-04] MEDS: cilostazol 100 mg Tablet 50 MG PO (06:21)
[2020-06-04] MEDS: ferrous sulfate EC 325 mg Tablet PO (06:22)
[2020-06-04] MEDS: dilTIAZem ER (24HR) 240 mg Capsule PO (06:22)
[2020-06-04] MEDS: pantoprazole DR 40 mg Tablet PO (06:23)
[2020-06-04] MEDS: isosorbide mononitrate 20 mg Tablet PO (06:23)
[2020-06-04 07:03] VITALS: BP 149/87; PULSE 93; RESP 16; TEMP 36.6; O2SAT 96
[2020-06-04] MEDS: tamsulosin 0.4 mg Capsule PO (08:15)
[2020-06-04] MEDS: predniSONE 20 mg Tablet 40 MG PO (08:15)
[2020-06-04] MEDS: apixaban 5 mg Tablet PO (08:15)
[2020-06-04] MEDS: aspirin 81 mg EC Tablet PO (08:15)
--- NOTE | 2020-06-04 09:41 | PM.PN ---
Subjective Subjective: Interval history: Patient is feeling okay with no chest pain or palpitation. No dizziness or syncopal episode. Denies any fever, chills or cough. No diarrhea. Medications: Reviewed: Yes Medication Review Details: Current Medications Albuterol Sulfate (Albuterol 8 Gm Mdi) 2 puff INHALATION Q4H.RESPIRATORY PRN PRN Reason: SHORTNESS OF BREATH Last Admin: 06/03/20 14:41 Dose: 2 puff Documented by: Apixaban (Apixaban 5 Mg Tablet) 5 mg PO BID [facility] Last Admin: 06/04/20 08:15 Dose: 5 mg Documented by: Aspirin (Aspirin 81 Mg Ec Tablet) 81 mg PO DAILY [facility] Last Admin: 06/04/20 08:15 Dose: 81 mg Documented by: Atorvastatin Calcium (Atorvastatin 40 Mg Tablet) 40 mg PO BEDTIME [facility] Last Admin: 06/03/20 21:44 Dose: 40 mg Documented by: Buspirone HCl (Buspirone 10 Mg Tablet) 10 mg PO BID@ [facility] Last Admin: 06/04/20 06:21 Dose: 10 mg Documented by: Cilostazol (Cilostazol 100 Mg Tablet) 50 mg PO BID@ [facility] Last Admin: 06/04/20 06:21 Dose: 50 mg Documented by: Diltiazem HCl (Diltiazem Er (24hr) 240 Mg Capsule) 240 mg PO DAILY@06 [facility] Last Admin: 06/04/20 06:22 Dose: 240 mg Documented by: Ferrous Sulfate (Ferrous Sulfate Ec 325 Mg Tablet) 325 mg PO DAILY@06 [facility] Last Admin: 06/04/20 06:22 Dose: 325 mg Documented by: Levofloxacin/Dextrose (Levaquin-D5w) 750 mg in 150 mls @ 100 mls/hr IV Q24H [facility]; Protocol Last Admin: 06/03/20 16:04 Dose: 100 mls/hr Documented by: Isosorbide Mononitrate (Isosorbide Mononitrate 20 Mg Tablet) 20 mg PO BID@ [facility] Last Admin: 06/04/20 06:23 Dose: 20 mg Documented by: Mirtazapine (Mirtazapine 30 Mg Tablet) 30 mg PO DAILY@18 [facility] Last Admin: 06/03/20 17:17 Dose: 30 mg Documented by: Morphine Sulfate (Morphine 4 Mg/Ml Sdv 1 Ml) 2 mg IVP Q4H PRN PRN Reason: SEVERE PAIN Ondansetron HCl (Ondansetron 2 Mg/Ml Sdv 2 Ml) 4 mg IVP Q6H PRN PRN Reason: NAUSEA AND VOMITING Pantoprazole Sodium (Pantoprazole Dr 40 Mg Tablet) 40 mg PO DAILY@06 [facility] Last Admin: 06/04/20 06:23 Dose: 40 mg Documented by: Prednisone (Prednisone 20 Mg Tablet) 40 mg PO DAILY [facility] Last Admin: 06/04/20 08:15 Dose: 40 mg Documented by: Ropinirole HCl (Ropinirole 0.25 Mg Tablet) 0.5 mg PO TID PRN PRN Reason: restless legs Fluticasone/Salmeterol (Fluticasone-Salmeterol 250-50 Diskus) 1 puff INHALATION BID.RESPIRATORY [facility] Last Admin: 06/03/20 08:34 Dose: 1 puff Documented by: Tamsulosin HCl (Tamsulosin 0.4 Mg Capsule) 0.4 mg PO DAILY [facility] Last Admin: 06/04/20 08:15 Dose: 0.4 mg Documented by: Tiotropium [place] (Tiotropium 18 Mcg Mdi) 18 mcg INHALATION DAILY.RESPIRATORY [facility] Vitals/I&O/Wt Last Vital Signs Temp 97.8 F 06/04/20 07:03 Pulse 93 06/04/20 07:03 Resp 16 06/04/20 07:03 BP 149/87 06/04/20 07:03 Pulse Ox 96 06/04/20 07:03 06/03/20 06/04/20 06/04/20 22:59 06:59 14:59 Intake Total 480 / 1560 600 / 600 Output Total 100 / 100 Balance 480 / 1560 -100 / 1460 600 / 600 Physical Exam Narrative: EXAM NARRATIVE: I did not do the physical examination, since the patient is in the Covid unit. Please refer to the physical examination by Dr. Mancilla. Data : 06/04/20 02:52 06/04/20 02:52 Micro: Microbiology 06/03/20 09:45 Gram Stain - Final Sputum - Expectorated Sputum 06/02/20 09:40 Blood Culture - Preliminary Blood NEGATIVE TO DATE 06/02/20 08:11 Blood Culture - Preliminary Blood Gram Negative Rods A&P Assessment and plan (1) Non-ST elevation UT (NSTEMI): Most likely the elevated troponin T is from the atrial fibrillation rapid ventricular rate. Possibility of an acute myocardial infarction causing this cannot be excluded but my clinical suspicion may be low. He has no significant wall motion of normalities by echocardiogram. LV ejection fraction is within normal limits. Because of the family history for premature atherosclerotic heart disease, it would be appropriate to go ahead and do a myocardial perfusion imaging, to further evaluate his coronary status. Since the patient is asymptomatic, this may be done as an outpatient. Status: Acute (2) Mitral regurgitation: Patient has at least moderately severe mitral regurgitation. He may require a LISSETT, to better evaluate the mitral valve and the mitral regurgitation. Since he is hemodynamically stable, there is no urgency in doing this test at this point. Status: Acute Qualifiers: Cardiac valve disease etiology: nonrheumatic Qualified Code(s): I34.0 - Nonrheumatic mitral (valve) insufficiency (3) Acute respiratory failure with hypoxia: Respiratory status is stable. Patient is off oxygen. Status: Acute (4) Suspected 2019-nCoV infection: The PCR test back negative Status: Acute (5) Peripheral vascular disease of extremity: Patient currently has no specific symptoms of peripheral artery insufficiency. He had only mild peripheral artery disease by the angiogram. May continue on the current medications for the time being. Status: Acute Additional A&P Information Since the patient is remaining stable, may not require any specific cardiac intervention at this time. May be discharged home from a cardiac standpoint. Appointment with Dr. Stark in three weeks Appointment at the heart care services with the nurse practitioner in 1 week Attestations Medical Necessity Statement*: Possible discharge home today Coding Level of Care Code [facility] Systems Test [facility] Diagnoses Non-ST elevation UT (NSTEMI) I21.4 Mitral regurgitation I34.0 Cardiac valve disease etiology: nonrheumatic Acute respiratory failure with hypoxia J96.01 Suspected 2019-nCoV infection Z20.828 Peripheral vascular disease of extremity I73.9
[2020-06-04 12:00] VITALS: BP 152/86; PULSE 94; RESP 16; TEMP 36.4; O2SAT 95
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
[2020-06-04 14:30] VITALS: O2SAT 94; O2SAT 96
[2020-06-04 16:00] VITALS: BP 152/86; PULSE 94; RESP 16; TEMP 36.4; O2SAT 95
--- NOTE | 2020-06-04 16:50 | PC.NURSE ---
Patient discharge reviewed with patient by Alyssa HINDS. Patient is A&Ox3. Respirations even and non-labored on room air. Patient wheel chaired to private car.
[2020-06-04 16:58] VITALS: BP 152/86; PULSE 94; RESP 16; TEMP 36.4; O2SAT 95
== END 2020-06-04 16:50 | disposition home or self-care (01) ==
LOC: ER 12:04 → MEDSURG 15:32
PROVIDERS: Internal Medicine; Admitting Provider Hospitalist; Emergency Provider Family Medicine; PCP Nurse Practitioner Family; Visit Provider Hospitalist
DX: J96.01 Acute respiratory failure with hypoxia (principal); J44.1 Chronic obstructive pulmonary disease with (acute) exacerbation; Z20.828 Contact with and (suspected) exposure to other viral communicable diseases; I21.4 Non-ST elevation (NSTEMI) myocardial infarction; I10 Essential (primary) hypertension; I73.9 Peripheral vascular disease, unspecified; F41.9 Anxiety disorder, unspecified; F32.9 Major depressive disorder, single episode, unspecified; Z85.46 Personal history of malignant neoplasm of prostate; E78.5 Hyperlipidemia, unspecified; I48.0 Paroxysmal atrial fibrillation; Z79.01 Long term (current) use of anticoagulants; Z87.891 Personal history of nicotine dependence; I34.0 Nonrheumatic mitral (valve) insufficiency; D50.9 Iron deficiency anemia, unspecified
CPT/HCPCS: 12345; 36415; 36600; 71045; 71275; 80051; 80053; 80061; 81001; 82330; 82550; 82805; 83036; 83605; 84145; 84484; 85025; 85049; 85378; 85384; 85610; 85730; 86140; 87040; 87070; 87077; 87086; 87186; 87205; 87426; 87635; 93005; 93306; 94640; 96365; 96366; 96367; 96375; 99282; 99285; G0378; J1644; J1956; J2920; J3490; J3535; J7040; J7512; Q9967

== ENCOUNTER 2020-06-13 18:31 | Observation (INO) | payer MEDICARE, MEDICAID, SELFPAY ==
[2020-06-13 18:33] VITALS: BP 147/99; PULSE 117; RESP 18; TEMP 36.6; O2SAT 94; BMI 28.0
[2020-06-13 18:48] VITALS: BP 112/57; PULSE 66; RESP 26; O2SAT 92
--- NOTE | 2020-06-13 18:56 | ECG_ITS ---
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 Measurements Intervals [place] Rate: 105 P: FL: QRS: 0 QRSD: 82 T: 65 QT: 319 QTc: 423 Interpretive Statements ATRIAL FIBRILLATION WITH RAPID VENTRICULAR RESPONSE WITH ABERRANT CONDUCTION OR VENTRICULAR PREMATURE COMPLEXES Compared to ECG 06/02/2020 14:23:52 Ventricular premature complex(es) now present Aberrant conduction of supraventricular beat(s) now present Electronically Signed On 06-14-2020 17:54:01 RADIO TELEVISION TECHNICAL DIRECTOR by Yury Fernandez M.D. [id number]
--- NOTE | 2020-06-13 18:56 | XRR_ITS ---
PROCEDURE INFORMATION: Exam: XR Chest, 1 View Exam date and time: 06/13/2020 6:58 PM Age: 75 years old Clinical indication: Dyspnea; Additional info: SOB TECHNIQUE: Imaging protocol: XR of the chest Views: 1 view. COMPARISON: CR XR chest 1V portable [id number] 06/02/2020 7:42 AM FINDINGS: Lungs: Improved aeration in both lungs suggesting resolving atelectasis or pneumonia. Linear atelectasis or scarring in the left lingula. Pleural space: No pleural effusion. No pneumothorax. Heart/Mediastinum: Stable mild enlargement of the cardiac silhouette. Mediastinal contours are unremarkable. Vasculature: Stable vascular calcifications in the aorta. Stable tortuosity of the aorta. Bones/joints: Unremarkable for age. XR/XR chest 1V portable [id number] IMPRESSION: 1. Improved aeration in both lungs suggesting resolving atelectasis or pneumonia. 2. Incidental/nonacute findings are listed in the report.
--- NOTE | 2020-06-13 18:58 | USR_ITS ---
PROCEDURE INFORMATION: Exam: US Duplex Lower Extremity Veins, Bilateral Exam date and time: 06/13/2020 8:57 PM Age: 75 years old Clinical indication: Screening exam; R/O dvt TECHNIQUE: Imaging protocol: Real-time duplex ultrasound of the extremities with 2-D molina scale, color Doppler flow and spectral waveform analysis with image documentation. Complete exam focused on the bilateral lower extremity veins. COMPARISON: No relevant prior studies available. FINDINGS: Right deep veins: The common femoral, femoral, proximal profunda femoral, popliteal, anterior tibial, posterior tibial, and peroneal veins are patent without thrombus. Normal compressibility and/or augmentation response. Right superficial veins: Saphenofemoral junction is patent without thrombus. Left deep veins: The common femoral, femoral, proximal profunda femoral, popliteal, anterior tibial, posterior tibial, and peroneal veins are patent without thrombus. Normal compressibility and/or augmentation response. Left superficial veins: Saphenofemoral junction is patent without thrombus. Soft tissues: Mild subcutaneous edema in the right lower extremity. US/[place] [id number] IMPRESSION: 1. No evidence for deep venous thrombosis. 2. Mild subcutaneous edema in the right lower extremity.
--- NOTE | 2020-06-13 19:07 | W.ED.EXTPRO ---
HPI - Extremity Problem General: Chief complaint: Extremity Problem,Nontraumatic Stated complaint: EDEMA; PAIN IN LEFT LEG Time Seen by Provider: 06/13/20 18:38 Source: patient Mode of arrival: ambulatory History of Present Illness: HPI Narrative: 75-year-old male presents emergency room chief complaint increased swelling in both of his legs patient presents ER history no atrial fibrillation on Eliquis he reports at this time moderate chest discomfort which is atrial fibrillation been acting up recently reports he got out of the hospital. He reports no recent injury or trauma reports mild shortness of breath with no difficulty breathing. Complaint: extremity swelling Associated symptoms: Deny chest pain, fever(s) or rash Context: history of DVT Review of Systems General: Reports: 10 or more systems reviewed and unremarkable except in HPI and below Const: Denies: fever(s), chills, fatigue or malaise Eyes: Denies: change in vision or blurry vision Card: Denies: chest pain or palpitations Resp: Denies: dyspnea or productive cough GI: Denies: abdominal pain, nausea or vomiting : Denies: flank pain Musc: Denies: extremity pain or extremity swelling Skin/Breast: Denies: rash or pruritus Neuro: Denies: headache(s) Psych: Denies: anxiety or depression Geovanni/Lymph: Denies: easy bleeding All/Imm: Denies: urticaria, throat swelling or facial swelling PFSH ED PFSH: Medical History Anxiety and depression Atrial fibrillation Bladder cancer Chronic anticoagulation Chronic cystitis COPD (chronic obstructive pulmonary disease) Enlarged prostate Genital lesion, male History of prostate cancer Hyperlipidemia Hypertension Iron deficiency anemia Mitral regurgitation Peripheral vascular disease of extremity Renal calculi Surgical History H/O eye surgery H/O eye surgery detached retina left eye History of colonoscopy (~2004) History of laparotomy History of lithotripsy History of ureter stent Family History Mother , at age 94 Hypertension Heart disease Father , at age 72 Renal disease Heart disease Brother Heart disease Other CAD (coronary artery disease) Cancer Denies family history of Anesthesia complication Bleeding disorder Social History Smoking and tobacco status: former smoker Quit status (tobacco): has quit using tobacco Year quit tobacco: 2020 - 1PPD x 50 Years Second hand smoke exposure: Yes Smoking risk assessment/counseling performed?: No Alcohol intake: former Year of sobriety/quit date alcohol: 2019 Desire information about alcohol rehabilitation?: No Counseling given: No Adopted: No Caregiver/support person: No Lives independently: Yes Household members: none Marital status: Single Current occupational status: retired History of recent travel: No Current gender identity: Male Physical Exam Narrative: EXAM NARRATIVE: Patient appears to be atrial fibrillation with rapid ventricular rate. Mild shortness of breath noted extreme swelling noted mostly to the left leg but bilaterally appreciated Const: COMMON NORMALS: no acute distress, patient oriented x3 and healthy appearing HENMT: COMMON NORMALS: normocephalic and atraumatic HEAD & SCALP: normocephalic and atraumatic Eye: COMMON NORMALS: Equal, round and reactive pupils present and EOMs intact bilaterally PUPIL: Yes Equal, round and reactive pupils present Neck/C-Spine: COMMON NORMALS: full ROM, supple and no JVD Lymph: LYMPHATIC: no lymphadenopathy noted Chest: COMMONS NORMALS: normal inspection of the chest and normal palpation of entire chest wall Resp: COMMON NORMALS: normal respiratory effort, No retractions and clear to auscultation bilaterally EFFORT & INSPECTION: Yes able to speak in complete sentences and Yes symmetric chest movement AUSCULTATION: clear to auscultation bilaterally Cardio: COMMON NORMALS: no JVD, regular rate and regular rhythm RATE: regular rate RHYTHM: regular rhythm GI: COMMON NORMALS: Normal to inspection, nondistended, normoactive bowel sounds present, Soft to palpation and non-tender INSPECTION: Yes normal to inspection PALPATION: Yes Soft to palpation : COMMON NORMALS: Yes no CVA tenderness BLADDER/KIDNEY EXAM: Yes no CVA tenderness Back/Pelvis: COMMON NORMALS: no CVA tenderness Extremity: COMMON NORMALS: normal to inspection and full ROM; negative for no pedal edema NARRATIVE EXTREMITY EXAM: Moderate pedal edema appreciated bilaterally worse in the left leg versus the right Neuro: COMMON NORMALS: patient oriented x3, CN's II-XII intact bilaterally, moves all extremities and no focal motor deficits Psych: COMMON NORMALS: mental status grossly normal, Normal thought process present, cooperative and normal affect THOUGHT PROCESS: Normal thought process present Skin: COMMON NORMALS: no rashes or lesions noted GENERAL SKIN EXAM: no rashes or lesions noted Course Vital Signs: Vital signs: Vital Signs Temperature 97.8 F 06/13/20 18:33 Pulse Rate 117 H 06/13/20 21:35 Respiratory Rate 20 H 06/13/20 21:35 Blood Pressure 112/57 06/13/20 18:48 Pulse Oximetry 93 06/13/20 21:35 MDM - Extremity (Nontraumatic) MDM Narrative: Medical decision making narrative: Patient appears to be in A. fib with RVR we started him on a Cardizem drip underlying concerns of DVT mostly in the left leg are probably dictating ultrasound left leg we will continue to follow. Patient rate was controlled on Cardizem drip lab work came back reassuringly slightly elevated cardiac troponins. Dr. Boudreaux expect accepted the patient to the CCU patient made in stable condition at this time. Lab Data: Labs: Lab Results 06/13/20 06/13/20 06/13/20 Range/Units 17:23 17:23 17:23 WBC 8.8 (4.0-10.0) 10^3/ uL RBC 4.34 (4.1-5.3) 10^6/u L Hgb 12.3 (11.7-16.6) g/dL Hct 38.5 L (42.0-52.0) % MCV 88.7 (80-94) fL MCH 28.3 (28.0-34.0) pg MCHC 31.9 (30.0-36.0) g/dL RDW 18.8 H (12.1-15.1) % Plt Count 330 (130-400) 10^3/c mm MPV 9.0 (7.4-10.4) fL Neut % (Auto) 62.6 % Lymph % (Auto) 23.0 % Lyman % (Auto) 10.0 % Eos % (Auto) 3.0 % Baso % (Auto) 0.5 % Neut # (Auto) 5.51 (1.8-7.7) 10^3/u L Lymph # (Auto) 2.0 (0.8-4.8) 10^3/u L Lyman # (Auto) 0.9 (0.2-0.9) 10^3/u L Eos # (Auto) 0.3 (0.0-0.8) 10^3/u L Baso # (Auto) 0.0 (0.0-0.1) 10^3/u L Nucleated RBC % (a uto) 0.2 % Nucleated RBCs # 0.0 /100WBC PT 14.10 (12.1-14.9) SECO NDS INR 1.06 (0.8-1.2) APTT 26.8 (23.9-36.7) SECO NDS Sodium 136 (136-145) mmol/L Potassium 3.3 L (3.5-5.1) mmol/L Chloride 102 (98-107) mmol/L Carbon Dioxide 23 (22-29) mmol/L Anion Gap 14.3 (5-19) BUN 13 (8-23) mg/dL Creatinine 0.8 (0.7-1.2) mg/dL GFR Calculation Not Reportable Glucose 129 H (65-115) mg/dL Calculated Osmolal ity 284 L (285-295) mOsm/k g Calcium 8.4 L (8.5-10.5) mg/dL Magnesium (1.7-2.3) mg/dL Total Bilirubin 0.2 (0.15-1.2) mg/dL AST 12 (0-40) U/L ALT 13 (0-41) U/L Alkaline Phosphata se 121 (40-130) IU/L Troponin T Baselin e (0-15) ng/L Troponin T 120 Min q[place]angin (0-15) ng/L Delta Troponin T (0-10) ABS# NT-Pro-B Natriuret Pep 180 H (0-125) pg/mL Total Protein 5.4 L (6.6-8.7) g/dL Albumin 3.3 L (3.5-5.2) g/dL Globulin 2.1 (1.3-4.6) g/dL 06/13/20 06/13/20 06/13/20 Range/Units 17:23 20:37 20:37 WBC (4.0-10.0) 10^3/ uL RBC (4.1-5.3) 10^6/u L Hgb (11.7-16.6) g/dL Hct (42.0-52.0) % MCV (80-94) fL MCH (28.0-34.0) pg MCHC (30.0-36.0) g/dL RDW (12.1-15.1) % Plt Count (130-400) 10^3/c mm MPV (7.4-10.4) fL Neut % (Auto) % Lymph % (Auto) % Lyman % (Auto) % Eos % (Auto) % Baso % (Auto) % Neut # (Auto) (1.8-7.7) 10^3/u L Lymph # (Auto) (0.8-4.8) 10^3/u L Lyman # (Auto) (0.2-0.9) 10^3/u L Eos # (Auto) (0.0-0.8) 10^3/u L Baso # (Auto) (0.0-0.1) 10^3/u L Nucleated RBC % (a uto) % Nucleated RBCs # /100WBC PT (12.1-14.9) SECO NDS INR (0.8-1.2) APTT (23.9-36.7) SECO NDS Sodium (136-145) mmol/L Potassium (3.5-5.1) mmol/L Chloride (98-107) mmol/L Carbon Dioxide (22-29) mmol/L Anion Gap (5-19) BUN (8-23) mg/dL Creatinine (0.7-1.2) mg/dL GFR Calculation Glucose (65-115) mg/dL Calculated Osmolal ity (285-295) mOsm/k g Calcium (8.5-10.5) mg/dL Magnesium 2.1 (1.7-2.3) mg/dL Total Bilirubin (0.15-1.2) mg/dL AST (0-40) U/L ALT (0-41) U/L Alkaline Phosphata se (40-130) IU/L Troponin T Baselin e 28 H (0-15) ng/L Troponin T 120 Min q[place] 26.51 H (0-15) ng/L Delta Troponin T -1.49 L (0-10) ABS# NT-Pro-B Natriuret Pep (0-125) pg/mL Total Protein (6.6-8.7) g/dL Albumin (3.5-5.2) g/dL Globulin (1.3-4.6) g/dL Discharge Plan Discharge Patient Disposition: Admitted As Inpatient Admit Provider: Dionne Boudreaux Clinical Impression: Atrial fibrillation with RVR Condition: Stable Coding Level of Care Code ED Masonry Installer for Chg Fwd Exam Comprehensive
[2020-06-13] MEDS: sodium chloride 0.9% 500 ML 999 ML IV (19:26)
[2020-06-13 19:31] VITALS: PULSE 116; RESP 20; O2SAT 91
[2020-06-13 19:39] LABS: Basophils % 0.5 %; Eosinophils # 0.3 10^3/uL (0.0-0.8); Hematocrit 38.5 % (42.0-52.0); Hemoglobin 12.3 g/dL (11.7-16.6); Mean Corpuscular HGB Conc 31.9 g/dL (30.0-36.0); Mean Corpuscular Hemoglobin 28.3 pg (28.0-34.0); Mean Corpuscular Volume 88.7 fL (80-94); Monocytes # 0.9 10^3/uL (0.2-0.9); Neutrophils # 5.51 10^3/uL (1.8-7.7); Neutrophils % 62.6 %; Nucleated Red Blood Cells % 0.2 %; Platelet Count 330 10^3/cmm (130-400); Red Blood Count 4.34 10^6/uL (4.1-5.3); Red Cell Distribution Width 18.8 % (12.1-15.1); White Blood Count 8.8 10^3/uL (4.0-10.0)
[2020-06-13 19:52] LABS: INR 1.06 (0.8-1.2); Partial Thromboplastin Time 26.8 SECONDS (23.9-36.7)
[2020-06-13 19:59] LABS: Troponin(5th) Baseline 28 ng/L (0-15)
[2020-06-13 20:07] VITALS: PULSE 117; RESP 19; O2SAT 95
[2020-06-13 20:07] LABS: Alanine Aminotransferase 13 U/L (0-41); Albumin Level 3.3 g/dL (3.5-5.2); Alkaline Phosphatase 121 IU/L (40-130); Anion Gap 14.3 (5-19); Aspartate Amino Transferase 12 U/L (0-40); Blood Urea Nitrogen 13 mg/dL (8-23); Calcium 8.4 mg/dL (8.5-10.5); Carbon Dioxide 23 mmol/L (22-29); Chloride 102 mmol/L (98-107); Globulin 2.1 g/dL (1.3-4.6); Glucose 129 mg/dL (65-115); NT Pro B Type Natriuretic Pept 180 pg/mL (0-125); Osmolality Calculated 284 mOsm/kg (285-295); Potassium 3.3 mmol/L (3.5-5.1); Sodium 136 mmol/L (136-145); Total Bilirubin 0.2 mg/dL (0.15-1.2); Total Protein 5.4 g/dL (6.6-8.7)
--- NOTE | 2020-06-13 20:56 | ECG_ITS ---
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 Measurements Intervals [place] Rate: 111 P: [place]: QRS: 24 QRSD: 64 T: 55 QT: 305 QTc: 415 Interpretive Statements ATRIAL FIBRILLATION WITH RAPID VENTRICULAR RESPONSE WITH ABERRANT CONDUCTION OR VENTRICULAR PREMATURE COMPLEXES SEPTAL MYOCARDIAL INFARCTION , OF INDETERMINATE AGE [40+ ms Q WAVE IN V1/V2] Compared to ECG 06/13/2020 19:39:13 Myocardial infarct finding now present Electronically Signed On 06-14-2020 18:00:55 CHIEF DEPUTY CLERK/BAILIFF by Yury Fernandez M.D. [id number]
[2020-06-13] MEDS: LORazepam 2 mg/mL INJ 1 mL 1 MG IVP (20:59)
[2020-06-13 21:05] LABS: Troponin 5 2HR 26.51 ng/L (0-15)
[2020-06-13 21:22] LABS: Troponin 5 2HR Delta -1.49 ABS# (0-10)
[2020-06-13 21:35] VITALS: PULSE 117; RESP 20; O2SAT 93
--- NOTE | 2020-06-13 21:52 | PM.HP ---
Providers/Chief Complaint Primary Care Provider: LUIS EDUARDO BATRES Chief Complaint: EDEMA; PAIN IN LEFT LEG History of Present Illness Damien Stringer is a 75 year old male who has history of nonoxygen dependent COPD, restless leg syndrome, paroxysmal A. fib, chronic anticoagulation on Eliquis, preserved ejection fraction heart failure, peripheral vascular disease, angiogram 01/29 showed luminal irregularities, was recently discharged from the hospital after management of type II AR secondary to A. fib RVR, echo revealed severe mitral valve regurgitation, presented today with worsening swelling. Patient recently had sleep study done on 06/10 which revealed moderate obstructive sleep apnea, auto CPAP titration was recommended. Patient presented today for chief complaint of bilateral leg swelling. He is stating that he could only take 10-15 steps without getting leg pains, he is also experiencing below the knee pain at rest as well. He has not noticed any skin color change any ulcers or gangrenous skin changes. He has quit smoking, drinks alcohol occasionally. He is compliant with his medications. No recent chest pain or worsening shortness of breath. No fever nausea vomiting diarrhea. He is not on Lasix, when asked about diuretics he replied that he is taking hydrochlorothiazide. On arrival in the ER he was diagnosed with A. fib RVR 1 70-1 80, Cardizem 20 mg IV push was given, then transition to Cardizem gtt. at the time of my evaluation it was running at 5 mg/h, heart rate fluctuating between 70-1 10, no active chest pain, shortness of breath. He was saturating well on room air I have repleted his potassium for hypokalemia, requested magnesium level and TSH. Chest x-ray unremarkable, increased aeration as compared to previous lungs x-ray, Bilateral venous Doppler did not reveal DVT Review of Systems Const: Denies: fever(s) or body aches Eyes: Denies: change in vision ENMT: Denies: throat pain Card: Reports: edema, swelling of feet/ankles, dyspnea on exertion and leg pain with exertion; Denies: orthopnea or acrocyanosis Resp: Reports: dyspnea and non-productive cough GI: Denies: abdominal pain : Denies: flank pain Musc: Reports: extremity pain; Denies: limited range of motion or muscle weakness Skin/Breast: Denies: rash, pruritus, erythema or skin tenderness Neuro: Denies: headache(s) Psych: Denies: anxiety Endo: Denies: polyuria Geovanni/Lymph: Denies: easy bruising All/Imm: Denies: urticaria Medications/Allergies Home Medications Medication Instructions Recorded Confirmed Last Taken Type Eliquis 5 mg PO BID@,07/20/19 06/02/20 04/19/20 History Spiriva Respimat 1 puff INHALATION BID 07/20/19 06/02/20 04/21/20 History diltiazem HCl [DILT-XR] 240 mg PO DAILY@07/20/19 06/02/20 04/22/20 05:30 History fluticasone propionate [Flonase 2 spray INTRANASAL DAILY PRN 07/20/19 06/02/20 04/21/20 History Allergy Relief] hydrochlorothiazide 25 mg PO DAILY@07/20/19 06/02/20 04/21/20 History isosorbide mononitrate 20 mg PO BID@07/20/19 06/02/20 04/21/20 History pravastatin [Pravachol] 40 mg PO DAILY@07/20/19 06/02/20 04/21/20 History tamsulosin [Flomax] 0.4 mg PO DAILY 07/20/19 06/02/20 04/21/20 History ferrous sulfate [iron] 325 mg PO DAILY@10/27/19 06/02/20 04/21/20 History mirtazapine 30 mg PO DAILY@10/27/19 06/02/20 04/21/20 History ropinirole 3 mg PO DAILY@10/27/19 06/02/20 04/21/20 History ascorbate calcium (vitamin C) 500 1 gm PO BID@,18 tab 11/05/19 06/02/20 04/21/20 History mg tablet Chantix Continuing Month Box See Rx Instructions .ROUTE .COMPLEX 12/02/19 06/02/20 04/21/20 History albuterol sulfate 2 inh INHALATION Q4H PRN #18 gm 12/02/19 06/02/20 04/21/20 Rx cilostazol 50 mg PO BID@,12/02/19 06/02/20 04/21/20 History albuterol sulfate 2.5 mg INHALATION Q6H PRN 05/21/20 06/02/20 Unknown History Protonix 40 mg PO DAILY@06 06/02/20 06/02/20 Unknown History Vitamin B-1 (mononitrate) 100 mg PO DAILY@06/02/20 06/02/20 Unknown History buspirone 10 mg PO BID@06,18 06/02/20 06/02/20 Unknown History methenamine hippurate 1 gm PO BID@,18 06/02/20 06/02/20 Unknown History potassium gluconate 595 mg PO DAILY 06/02/20 06/02/20 Unknown History sulfamethoxazole-trimethoprim 1 tab PO BID@,18 06/02/20 06/02/20 Unknown History fluticasone propion-salmeterol 1 puff INHALATION BID.RESPIRATORY 06/04/20 Unknown Rx [Advair Diskus] #1 ea Allergies Allergy/AdvReac Type Severity Reaction Status Date / Time No Known Allergies Allergy Verified 06/13/20 18:38 PFSH Acute PFSH: Medical History Anxiety and depression Atrial fibrillation Bladder cancer Chronic anticoagulation Chronic cystitis COPD (chronic obstructive pulmonary disease) Enlarged prostate Genital lesion, male History of prostate cancer Hyperlipidemia Hypertension Iron deficiency anemia Left atrial enlargement 4.9 cm width Mitral regurgitation Peripheral vascular disease of extremity Renal calculi Surgical History H/O esophagogastroduodenoscopy H/O eye surgery H/O eye surgery detached retina left eye History of colonoscopy (~2004) History of laparotomy History of lithotripsy History of ureter stent Family History Mother , at age 94 Hypertension Heart disease Father , at age 72 Renal disease Heart disease Brother Heart disease Other CAD (coronary artery disease) Cancer Denies family history of Anesthesia complication Bleeding disorder Social History Smoking and tobacco status: former smoker Quit status (tobacco): has quit using tobacco Year quit tobacco: 2020 - 1PPD x 50 Years Second hand smoke exposure: Yes Smoking risk assessment/counseling performed?: No Alcohol intake: former Year of sobriety/quit date alcohol: 2019 Desire information about alcohol rehabilitation?: No Counseling given: No Adopted: No Caregiver/support person: No Lives independently: Yes Household members: none Marital status: Single Current occupational status: retired History of recent travel: No Current gender identity: Male Vitals/I&O/Wt Last Vital Signs Temp 97.8 F 06/13/20 18:33 Pulse 117 H 06/13/20 21:35 Resp 20 H 06/13/20 21:35 BP 112/57 06/13/20 18:48 Pulse Ox 93 06/13/20 21:35 Weight last 48 hrs Weight 104.326 kg Physical Exam Narrative: EXAM NARRATIVE: Elderly male in semi-Costa position comfortable when I entered the room he was saturating well on room air Did not complain of active shortness of breath or chest pain No active leg pain as well No signs of gangrene, ischemia or cellulitis of lower extremities however lower extremities have edema 2+, pedal edema positive, bilateral dorsalis pedis pulsation 1+ without any signs of ischemia S1, S2 variable pansystolic murmur radiating towards the axilla Bilateral breath sounds with crackles at the bases bilaterally Abdomen distended, bloated nontender bowel sound present Appropriate mood and affect Neurologically no focal deficit EOMI, PERRLA GCS 15 Awake alert oriented x3 No active joint pains or swelling Data : 06/13/20 17:23 06/13/20 17:23 A&P Assessment and plan (1) Atrial fibrillation with RVR: Status: Acute (2) Claudication in peripheral vascular disease: Status: Acute (3) Chronic anticoagulation: Status: Acute (4) CHF exacerbation: Status: Acute Additional A&P Information A. fib acute RVR History of paroxysmal A. fib Currently on Cardizem drip 5 mg/h heart rate fluctuating between 70-1 10 Normal hemodynamics, no active chest pain shortness of breath confusion I would increase his Cardizem dose to 360 mg Continue Eliquis 5 mg twice a day Potassium low noted, repleted We will check magnesium and TSH level Echo revealed LeftAtrial enlargement 4.9 cm, he might need antiarrhythmic agent for better control of paroxysmal A. fib CHF exacerbation Preserved action fraction with severe mitral regurgitation, I do believe obstructive sleep apnea has a role to play in worsening of CHF Lasix na?ve I will start low-dose for now Discontinue hydrochlorothiazide I would not repeat echo at this point recent echo 06/03, reviewed which revealed mitral valve regurgitation, preserved ejection fraction and left atrial enlargement Peripheral vascular disease with claudication I would continue statins, cilostazol, Eliquis for now Patient also has history of restless leg syndrome but stating this pain is different, I do not see gangrenous or any skin mottling Dorsalis pedis pulses 1+ bilateral Angiogram done 01/29 Kindly consult cardiology if he would benefit from balloon angioplasty(patient stating that he can only take 10-15 steps without getting pains in his leg below the knee consistent with previous angiogram which revealed poor perfusion below the knee as well) however no acute signs of critical limb ischemia I would not start heparin at this point Full code goals of care discussed with the patient patient wants a trial of CPR and intubation but does not want to stay on life support for prolonged period of time, he does not have any other family member stating his friend would make decision on his behalf Cardiac diet DVT prophylaxis not needed currently on Eliquis Attestations Medical Necessity Statement*: I am anticipating that patient will need less than 2 midnights in the hospital , heart rate seems to respond to Cardizem gtt. for now, overnight monitoring because of leg pain at rest however no signs of critical limb ischemia Time Spent in Patient Care: (>than 50% of time spent in counselling and/or direct pt care on unit). 50mins Coding Level of Care Code Acute Chief Of Field Operations for Chg Fwd Diagnoses Atrial fibrillation with RVR I48.91 Claudication in peripheral vascular disease I73.9 Chronic anticoagulation Z79.01 CHF exacerbation I50.9
[2020-06-13] MEDS: potassium chloride ER 20 mEq Tablet 40 MEQ PO (22:09)
[2020-06-13 22:31] LABS: Magnesium 2.1 mg/dL (1.7-2.3)
[2020-06-13 23:02] LABS: Thyroid Stimulating Hormone 1.47 uIU/mL (0.27-4.20)
[2020-06-13 23:39] VITALS: BP 165/108; PULSE 135; RESP 18
[2020-06-14] VITALS (12 sets, daily range): BP systolic 122–173; BP diastolic 58–85; PULSE 76–112; RESP 15–24; TEMP 36.6–37.1; O2SAT 91–96
[2020-06-14] LABS: Add Urine Microscopic? YES; Bilirubin Urine Neg (Negative); Blood Urine 3+ (Negative); Glucose Urine UA Norm (Normal); Ketones Urine Negative (Negative); Leukocyte Esterase Urine Negative (Negative); Nitrate Urine Negative (Negative); Protein Urine Neg (Negative); Urine Color Yellow (Yellow); Urobilinogen Urine Norm (Negative); pH Urine 6 (5-7)
[2020-06-14 00:09] LABS: Add Urine Culture? No; Bacteria Urine 1+ /hpf; Calcium Oxalate Crystals Urine 15-25 /hpf; RBC Urine TOO NUMEROUS TO CNT /hpf (0-2); Squamous Epithelial Cell Urine 15-25 /hpf (0-5); WBC Urine 15-25 /hpf (0-5)
--- NOTE | 2020-06-14 00:21 | PC.NURSE ---
PT ARRIVED TO ROOM 101. PT STATED THAT HE IS HUNGRY. PT HAD 2 SANDWICHES AND A SODA. PT IS ON A CARDIZEM GTT RUNNING AT 5MG/HR WHEN THEY ARRIVED AND GLASS CUTTER HAND NURSE INCREASED TO 10MG/HR. HR 100'S. PT WAS ORIENTATED TO ROOM. PT DENIES PAIN AT THIS TIME. WILL CONTINUE TO MONITOR.
--- NOTE | 2020-06-14 00:56 | ECG_ITS ---
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 Measurements Intervals [place] Rate: 103 P: NE: QRS: 36 QRSD: 78 T: 67 QT: 321 QTc: 421 Interpretive Statements ATRIAL FIBRILLATION WITH RAPID VENTRICULAR RESPONSE WITH ABERRANT CONDUCTION OR VENTRICULAR PREMATURE COMPLEXES LOW QRS VOLTAGE IN EXTREMITY LEADS [QRS DEFLECTION < 0.5 mV IN LIMB LEADS] Compared to ECG 06/13/2020 22:18:27 Low QRS voltage now present Myocardial infarct finding no longer present Electronically Signed On 06-14-2020 17:59:47 SOURCER by Yury Fernandez M.D. [id number]
[2020-06-14 01:45] LABS: Troponin 5 6HR 35.35 ng/L (0-15); Troponin 5 6HR Delta 7.35 ng/L (0-12)
[2020-06-14] MEDS: levalbuterol 0.63 mg/3 mL Neb INHALATION ×3 (02:03→12:45)
--- NOTE | 2020-06-14 02:48 | PC.NURSE ---
PT ON A CARDIZEM GTT AT 10MG/HR. PT C/O CRAMPS IN LEGS. PT BECAME SOB AND RT GOT A BREATHING TX. HR IN THE 100'S AT THIS TIME. WILL CONTINUE TO MONITOR.
[2020-06-14 03:52] LABS: Basophils # 0.1 10^3/uL (0.0-0.1); Basophils % 0.5 %; Eosinophils # 0.3 10^3/uL (0.0-0.8); Eosinophils % 2.3 %; Hematocrit 39.4 % (42.0-52.0); Hemoglobin 12.3 g/dL (11.7-16.6); Lymphocytes # 1.8 10^3/uL (0.8-4.8); Lymphocytes % 15.2 %; Mean Corpuscular HGB Conc 31.2 g/dL (30.0-36.0); Mean Corpuscular Volume 89.5 fL (80-94); Mean Platelet Volume 8.8 fL (7.4-10.4); Monocytes # 1.1 10^3/uL (0.2-0.9); Monocytes % 9.5 %; Neutrophils # 8.53 10^3/uL (1.8-7.7); Neutrophils % 71.4 %; Nucleated Red Blood Cells % 0 %; Platelet Count 326 10^3/cmm (130-400); Red Cell Distribution Width 18.8 % (12.1-15.1)
[2020-06-14 04:20] LABS: Anion Gap 13.2 (5-19); Blood Urea Nitrogen 17 mg/dL (8-23); Carbon Dioxide 26 mmol/L (22-29); Chloride 100 mmol/L (98-107); Glucose 108 mg/dL (65-115); Osmolality Calculated 282 mOsm/kg (285-295); Potassium 4.2 mmol/L (3.5-5.1); Sodium 135 mmol/L (136-145)
[2020-06-14] MEDS: cilostazol 100 mg Tablet 50 MG PO ×2 (05:35→18:08)
[2020-06-14] MEDS: dilTIAZem ER (24HR) 180 mg Capsule 360 MG PO (05:35)
[2020-06-14] MEDS: apixaban 5 mg Tablet PO ×2 (05:35→18:08)
[2020-06-14] MEDS: pantoprazole DR 40 mg Tablet PO (05:36)
[2020-06-14] MEDS: BuSPIRONE 10 mg Tablet PO ×2 (05:36→18:09)
--- NOTE | 2020-06-14 06:10 | ECG_ITS ---
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 Measurements Intervals [place] Rate: 86 P: [place]: QRS: 40 QRSD: 76 T: 63 QT: 357 QTc: 429 Interpretive Statements ATRIAL FIBRILLATION WITH ABERRANT CONDUCTION OR VENTRICULAR PREMATURE COMPLEXES LOW QRS VOLTAGE IN EXTREMITY LEADS [QRS DEFLECTION < 0.5 mV IN LIMB LEADS] SEPTAL MYOCARDIAL INFARCTION [40+ ms Q WAVE IN V1/V2], OF INDETERMINATE AGE Compared to ECG 06/14/2020 01:30:44 Myocardial infarct finding now present Electronically Signed On 06-14-2020 17:50:37 TELEGRAPH AND TELETYPE OPERATOR by Yury Fernandez M.D. [id number]
--- NOTE | 2020-06-14 07:00 | PC.NURSE ---
patient sitting on the side of the bed talking to the dr. after dr left assessment was performed and charted. call light in reach. patient denied any needs at this time.
--- NOTE | 2020-06-14 08:12 | USR_ITS ---
PROCEDURE INFORMATION: Exam: US Duplex Lower Extremity Arteries Or Arterial Bypass Grafts Exam date and time: 06/14/2020 8:45 AM Age: 75 years old Clinical indication: Condition or disease; Peripheral vascular disease; Additional info: Pvd TECHNIQUE: Imaging protocol: Real-time ultrasound scan of the arteries of the bilateral lower extremities with 2-D molina scale, color Doppler flow and spectral waveform analysis. Images documented and saved. COMPARISON: No relevant prior studies available. FINDINGS: Right external iliac artery: There is elevated velocity in the midportion of the right iliac artery at 178.6 cm/s. This would indicate 30-49% proximal stenosis. Right common femoral artery: No occlusion or significant stenosis. Biphasic waveform. Right superficial femoral artery: No occlusion or significant stenosis. Biphasic waveform. Right popliteal artery: There is elevated velocity in the right popliteal artery measuring 205.1 cm/s which would indicate distal superficial femoral or proximal popliteal artery 50-75% stenosis. 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 Normal waveform. Right calf/foot arteries: The right ankle brachial index equals 0.72. Left external iliac artery: There is elevated velocity in the distal left iliac artery measuring 202.2 cm/s. This would indicate 50-75% proximal stenosis. Left common femoral artery: No occlusion or significant stenosis. Normal waveform. Left superficial femoral artery: No occlusion or significant stenosis. Biphasic waveform. Left popliteal artery: No occlusion or significant stenosis. Monophasic waveform. Left calf/foot arteries: The left ankle brachial index equals 0.67. US/[place] [id number] IMPRESSION: 1. There is diffuse atherosclerotic plaquing throughout the lower extremity arteries bilaterally. 2. Elevated velocities in the external iliac arteries suggesting 30-49% right proximal stenosis and 50-75% left proximal stenosis. 3. 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 4. Elevated velocities in the right popliteal artery consistent with 50-75% stenosis in the distal SFA or proximal popliteal artery.
[2020-06-14] MEDS: tamsulosin 0.4 mg Capsule PO (08:26)
[2020-06-14] MEDS: lisinopril 10 mg Tablet PO (08:27)
[2020-06-14] MEDS: FUROsemide 20 mg Tablet PO (08:27)
--- NOTE | 2020-06-14 09:00 | PC.NURSE ---
pulses dopplered and marked per Dr. Cotto's request.
--- NOTE | 2020-06-14 10:24 | P.CONIM_ITS ---
Providers/Reason For Consult Consulting Physican/Specialty*: Yury Fernandez MD/ Cardiology Reason for Consult*: CHF/ Lower extremity pain Attending Physician: Dionne Boudreaux MD Primary Care Provider: LUIS EDUARDO BATRES History of Present Illness History of Present Illness 75 year old male who has history of nonoxygen dependent COPD, restless leg syndrome, paroxysmal A. fib, chronic anticoagulation on Eliquis, preserved ejection fraction heart failure, peripheral vascular disease, angiogram 01/29 showed luminal irregularities, was recently discharged from the hospital after management of type II AR secondary to A. fib RVR, echo revealed severe mitral valve regurgitation, presented with worsening swelling. He also gets dyspnea on exertion and lower extremity edema. Patient was recently found to have moderate to severe mitral regurgitation. In the ER, patient was also in afib with RVR that resolved after getting cardizem. Now off drip Patient also complains of exertional lower extremity pain that he describes as burning sensation. Patient had angiogram in 01/29 that did not reveal any significant disease. He had duplex ultrasound today and shows mild to moderate disease in the lower extremities. Review of Systems Const: Denies: fever(s) or body aches Eyes: Denies: change in vision ENMT: Denies: throat pain Card: Reports: edema, swelling of feet/ankles, dyspnea on exertion and leg pain with exertion; Denies: orthopnea or acrocyanosis Resp: Reports: dyspnea and non-productive cough GI: Denies: abdominal pain : Denies: flank pain Musc: Reports: extremity pain; Denies: limited range of motion or muscle weakness Skin/Breast: Denies: rash, pruritus, erythema or skin tenderness Neuro: Denies: headache(s) Psych: Denies: anxiety Endo: Denies: polyuria Geovanni/Lymph: Denies: easy bruising All/Imm: Denies: urticaria Meds/Allergies Home Medications and Allergies Home Medications Medication Instructions Recorded Confirmed Last Taken Type Eliquis 5 mg PO BID@07/20/19 06/14/20 06/13/20 History Spiriva Respimat 1 puff INHALATION BID 07/20/19 06/14/20 04/21/20 History diltiazem HCl [DILT-XR] 240 mg PO DAILY@07/20/19 06/14/20 06/13/20 History fluticasone propionate [Flonase 2 spray INTRANASAL DAILY PRN 07/20/19 06/14/20 04/21/20 History Allergy Relief] hydrochlorothiazide 25 mg PO DAILY@07/20/19 06/14/20 06/13/20 History isosorbide mononitrate 20 mg PO BID@,18 07/20/19 06/14/20 06/13/20 History pravastatin [Pravachol] 40 mg PO DAILY@07/20/19 06/14/20 04/21/20 History tamsulosin [Flomax] 0.4 mg PO DAILY@07/20/19 06/14/20 06/13/20 History ferrous sulfate [iron] 325 mg PO DAILY@10/27/19 06/14/20 06/13/20 History mirtazapine 30 mg PO DAILY@10/27/19 06/14/20 04/21/20 History ropinirole 3 mg PO DAILY@10/27/19 06/14/20 04/21/20 History ascorbate calcium (vitamin C) 500 1 gm PO BID@,18 tab 11/05/19 06/14/20 06/13/20 History mg tablet albuterol sulfate 2 inh INHALATION Q4H PRN #18 gm 12/02/19 06/14/20 04/21/20 Rx cilostazol 50 mg PO BID@,18 12/02/19 06/14/20 06/13/20 History albuterol sulfate 2.5 mg INHALATION Q6H PRN 05/21/20 06/14/20 Unknown History buspirone 10 mg PO BID@,18 06/02/20 06/14/20 06/13/20 History methenamine hippurate 1 gm PO BID@,18 06/02/20 06/14/20 06/13/20 History pantoprazole [Protonix] 40 mg PO DAILY@06/02/20 06/14/20 06/13/20 History potassium gluconate 595 mg PO DAILY@06/02/20 06/14/20 06/13/20 History sulfamethoxazole-trimethoprim 1 tab PO BID@,18 06/02/20 06/14/20 Unknown History thiamine mononitrate (vit B1) 100 mg PO DAILY@06 06/02/20 06/14/20 06/13/20 History [Vitamin B-1 (mononitrate)] fluticasone propion-salmeterol 1 puff INHALATION BID.RESPIRATORY 06/04/20 06/14/20 Unknown Rx [Advair Diskus] #1 ea Allergies Allergy/AdvReac Type Severity Reaction Status Date / Time No Known Allergies Allergy Verified 06/14/20 10:15 Current Medications Current Medications Generic Name Dose Route Start Last Admin Trade Name Fre PRN Reason Stop Dose Admin Apixaban 5 mg 06/14/20 06:00 06/14/20 05:35 Apixaban 5 Mg Tablet PO 5 mg BID@, NIKHIL Administration Buspirone HCl 10 mg 06/14/20 06:00 06/14/20 05:36 Buspirone 10 Mg Tablet PO 10 mg BID@18 NIKHIL Administration Cilostazol 50 mg 06/14/20 06:00 06/14/20 05:35 Cilostazol 100 Mg Tablet PO 50 mg BID@ NIKHIL Administration Diltiazem HCl 360 mg 06/14/20 06:00 06/14/20 05:35 Diltiazem Er (24hr) 180 Mg Capsule PO 360 mg DAILY@06 NIKHIL Administration Furosemide 20 mg 06/14/20 08:00 06/14/20 08:27 Furosemide 20 Mg Tablet PO 20 mg DAILY@0800 NIKHIL Administration Diltiazem HCl 125 mg/ Sodium 125 mls @ 5 mls/hr 06/13/20 19:00 06/14/20 08:29 Chloride IV 5 mg/hr .Q24H NIKHIL 5 mls/hr Titration Protocol 5 MG/HR Ipratropium [place] 2 puff 06/14/20 04:00 06/14/20 04:55 Ipratropium 12.9 Gm Mdi INHALATION 2 puff Q4H.RESPIRATORY NIKHIL Administration Levalbuterol HCl 0.63 mg 06/14/20 01:39 06/14/20 02:03 Levalbuterol 0.63 Mg/3 Ml Neb INHALATION 0.63 mg Q4H.RESPIRATORY PRN Administration SHORTNESS OF BREATH Lisinopril 10 mg 06/14/20 09:00 06/14/20 08:27 Lisinopril 10 Mg Tablet PO 10 mg DAILY NIKHIL Administration Pantoprazole Sodium 40 mg 06/14/20 06:00 06/14/20 05:[address] 40 Mg Tablet PO 40 mg DAILY@06 NIKHIL Administration Tamsulosin HCl 0.4 mg 06/14/20 09:00 06/14/20 08:26 Tamsulosin 0.4 Mg Capsule PO 0.4 mg DAILY NIKHIL Administration PFSH Acute PFSH: Medical History Anxiety and depression Atrial fibrillation Bladder cancer Chronic anticoagulation Chronic cystitis COPD (chronic obstructive pulmonary disease) Enlarged prostate Genital lesion, male History of prostate cancer Hyperlipidemia Hypertension Iron deficiency anemia Left atrial enlargement 4.9 cm width Mitral regurgitation Peripheral vascular disease of extremity Renal calculi Surgical History H/O esophagogastroduodenoscopy H/O eye surgery H/O eye surgery detached retina left eye History of colonoscopy (~2004) History of laparotomy History of lithotripsy History of ureter stent Family History Mother , at age 94 Hypertension Heart disease Father , at age 72 Renal disease Heart disease Brother Heart disease Other CAD (coronary artery disease) Cancer Denies family history of Anesthesia complication Bleeding disorder Social History Smoking and tobacco status: former smoker Quit status (tobacco): has quit using tobacco Year quit tobacco: 2020 - 1PPD x 50 Years Second hand smoke exposure: Yes Smoking risk assessment/counseling performed?: No Alcohol intake: former Year of sobriety/quit date alcohol: 2019 Desire information about alcohol rehabilitation?: No Counseling given: No Adopted: No Caregiver/support person: No Lives independently: Yes Household members: none Marital status: Single Current occupational status: retired History of recent travel: No Current gender identity: Male Vitals/I&O/Wt Last Vital Signs Temp 98.0 F 06/14/20 08:00 Pulse 87 06/14/20 08:00 Resp 21 H 06/14/20 08:00 BP 173/83 06/14/20 08:00 Pulse Ox 91 06/14/20 04:56 06/13/20 06/14/20 06/14/20 22:59 06:59 14:59 Intake Total 25.917 / 25.917 312.333 / 312.333 Balance 25.917 / 25.917 312.333 / 312.333 Weight last 48 hrs Weight 240 lb 14.4 oz Weight 230 lb Physical Exam Const: COMMON NORMALS: no acute distress and patient oriented x3 HENMT: COMMON NORMALS: normocephalic HEAD & SCALP: normocephalic Neck/C-Spine: COMMON NORMALS: no JVD Resp: COMMON NORMALS: normal respiratory effort, No retractions, No use of accessory muscles and clear to auscultation bilaterally AUSCULTATION: clear to auscultation bilaterally Cardio: COMMON NORMALS: no JVD, regular rate, regular rhythm, S1 normal heart sound present and S2 normal heart sound present RATE: regular rate RHYTHM: regular rhythm HEART SOUNDS: S1 normal heart sound present and S2 normal heart sound present GI: COMMON NORMALS: Normal to inspection, nondistended, normoactive bowel sounds present, Soft to palpation, non-tender, No hepatosplenomegaly present, no masses and no bruits PALPATION: Yes Soft to palpation and Yes No hepatosplenomegaly present Extremity: COMMON NORMALS: no calf tenderness NARRATIVE EXTREMITY EXAM: Patient has 2+ pitting edema Neuro: COMMON NORMALS: patient oriented x3 Psych: COMMON NORMALS: mental status grossly normal A&P Assessment and plan (1) CHF exacerbation: Status: Acute (2) Mitral regurgitation: Status: Acute Qualifiers: Cardiac valve disease etiology: nonrheumatic Qualified Code(s): I34.0 - Nonrheumatic mitral (valve) insufficiency (3) Claudication in peripheral vascular disease: Status: Acute (4) Hypertension: Status: Acute Qualifiers: Hypertension type: essential hypertension Qualified Code(s): I10 - Essential (primary) hypertension (5) Chronic anticoagulation: Status: Acute Patient has significant lower extremity edema and some shortness of breath although is saturating well on room air at this time.Will recommend a day of IV lasix and then switch baclk to PO Lasix Afib is controlled with cardizem PO 360mg. Continue. If heart rate becomes uncontrolled again, can consider starting digoxin Continue Cilostazol. No angiogram or intervention is warranted at this time as patient had a recent one showing no obstructive disease Thank you for involving us with the care of this patient. Cardiology will continue to follow. 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
--- NOTE | 2020-06-14 11:59 | USR_ITS ---
PROCEDURE INFORMATION: Exam: US Retroperitoneal; Complete; Kidneys and Bladder Exam date and time: 06/14/2020 1:45 PM Age: 75 years old Clinical indication: Other: Hematurea; Additional info: Hematuria TECHNIQUE: Imaging protocol: Real-time ultrasound of the retroperitoneum with image documentation. Complete exam focused on the kidneys and bladder. COMPARISON: CT kidney stone [id number] 07/20/2019 1:04 PM FINDINGS: Right kidney: Measures 12 x 6.2 x 5.8 cm. The cortical thickness is 0.7 cm. Renal calcifications are identified in the upper and lower right kidney. No hydronephrosis. There is a 2.7 x 2 cm right renal cyst. Left kidney: Measures 10.9 x 6.8 x 5.7 cm. The cortical thickness is 1.3 cm. Renal calcifications are identified in the lower left kidney. No hydronephrosis. Urinary bladder: Unremarkable. US/US renal BI* [id number] IMPRESSION: There are bilateral renal calcifications. No hydronephrosis.
--- NOTE | 2020-06-14 12:00 | PM.PN ---
Subjective Subjective: Interval history: This morning patient was examined, he tells me that he has bilateral lower extremity pain especially with exertion, some shortness of breath with exertion, no rest pain, no discoloration of bilateral lower extremities, no chest pain, no lightheadedness or dizziness, no nausea, vomiting, no palpitations is chronically on Eliquis and clots resolved Vitals/I&O/Wt Last Vital Signs Temp 98.0 F 06/14/20 08:00 Pulse 90 06/14/20 09:30 Resp 16 06/14/20 09:30 BP 173/83 06/14/20 08:00 Pulse Ox 94 06/14/20 09:30 06/13/20 06/14/20 06/14/20 22:59 06:59 14:59 Intake Total 25.917 / 25.917 312.333 / 312.333 Balance 25.917 / 25.917 312.333 / 312.333 Weight last 48 hrs Weight 109.27 kg Weight 104.326 kg Physical Exam Const: COMMON NORMALS: no acute distress and patient oriented x3 HENMT: COMMON NORMALS: normocephalic HEAD & SCALP: normocephalic Neck/C-Spine: COMMON NORMALS: no JVD Resp: COMMON NORMALS: normal respiratory effort, No retractions, No use of accessory muscles and clear to auscultation bilaterally AUSCULTATION: clear to auscultation bilaterally Cardio: COMMON NORMALS: no JVD, regular rate, regular rhythm, S1 normal heart sound present and S2 normal heart sound present RATE: regular rate RHYTHM: regular rhythm HEART SOUNDS: S1 normal heart sound present and S2 normal heart sound present GI: COMMON NORMALS: Normal to inspection, nondistended, normoactive bowel sounds present, Soft to palpation, non-tender, No hepatosplenomegaly present, no masses and no bruits PALPATION: Yes Soft to palpation and Yes No hepatosplenomegaly present Extremity: COMMON NORMALS: no clubbing, cyanosis or edema, no calf tenderness and no pedal edema Neuro: COMMON NORMALS: patient oriented x3 Psych: COMMON NORMALS: mental status grossly normal Data : 06/14/20 03:42 06/14/20 03:42 A&P Assessment and plan (1) Atrial fibrillation with RVR: Status: Acute (2) Claudication in peripheral vascular disease: Status: Acute (3) Chronic anticoagulation: Status: Acute (4) CHF exacerbation: Status: Acute Additional A&P Information A. fib acute RVR History of paroxysmal A. fib Currently Cardizem drip off Normal hemodynamics, no active chest pain shortness of breath confusion Received Cardizem 360 mg this morning, heart rates in the 90s Continue Eliquis 5 mg twice a day Blood pressures remain high, snf thiazide, Imdur, had started metoprolol Potassium low noted, repleted magnesium and TSH level within normal limits Echo revealed LeftAtrial enlargement 4.9 cm, he might need antiarrhythmic agent for better control of paroxysmal A. fib NSTEMI Baseline troponin 28, 6-hour 35.3, negative delta EKG shows atrial fibrillation No complaints of chest pain Likely supply demand ischemia type II NSTEMI On Eliquis, statin Continue to monitor Moderate to severe mitral regurgitation, new since prior echocardiogram, will get cardiology's input CHF exacerbation Preserved action fraction with severe mitral regurgitation, I do believe obstructive sleep apnea has a role to play in worsening of CHF Lasix na?ve I will start low-dose for now Continue hydrochlorothiazide Peripheral vascular disease with claudication with exertion I would continue statins, cilostazol, Eliquis for now Patient also has history of restless leg syndrome but stating this pain is different, I do not see gangrenous or any skin mottling Dorsalis pedis pulses 1+ bilateral, will Doppler pulses Angiogram done 01/29 Will do bilateral lower extremity arterial sonograms Cardiology consulted Hematuria, will obtain a renal ultrasound Hypertension, resume Imdur, hydrochlorothiazide, increased dose of Cardizem to 360 mg, added Metroprolol 12.5 twice daily Full code goals of care discussed with the patient patient wants a trial of CPR and intubation but does not want to stay on life support for prolonged period of time, he does not have any other family member stating his friend would make decision on his behalf Cardiac diet DVT prophylaxis not needed currently on Eliquis Attestations Medical Necessity Statement*: Patient requires hospitalization, for A. 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
[2020-06-14] MEDS: metoprolol tartrate 25 mg Tablet 12.5 MG PO ×2 (12:53→23:32)
[2020-06-14] MEDS: ropinirole 2 mg Tablet 3 MG PO (18:08)
[2020-06-14] MEDS: isosorbide mononitrate 20 mg Tablet PO (18:08)
[2020-06-14] MEDS: atorvastatin 40 mg Tablet 20 MG PO (18:08)
[2020-06-14] MEDS: mirtazapine 30 mg Tablet PO (18:09)
[2020-06-14] MEDS: ascorbic acid 500 mg Tablet 1000 MG PO (18:09)
--- NOTE | 2020-06-14 18:31 | PC.NURSE ---
patient reeducated on the importance of needing to use his urinal so that we could accurately measure his urine. patient verbalized an understanding.
--- NOTE | 2020-06-14 19:53 | PC.NURSE ---
PT IS RESTING IN BED. PT C/O OF BEING TIRED AND CAN'T GO TO SLEEP. PT STATES THAT WHEN HE LAYS DOWN HIS FEET START HURTING. PT EDUCATED ON THE DANGERS OF GOING TO SLEEP WHILE SITTING UP ON THE SIDE OF THE BED. WILL CONTINUE TO MONITOR.
[2020-06-15] VITALS (11 sets, daily range): BP systolic 116–135; BP diastolic 60–75; PULSE 79–100; RESP 16–22; TEMP 34.7–36.8; O2SAT 94–97
--- NOTE | 2020-06-15 04:18 | PC.NURSE ---
PT IS UP ON THE SIDE OF THE BED. PT STATES THAT THE NIGHTS ARE LONG WHEN THERE IS NOTHING TO DO. PT STATES THAT THEY ARE UNCOMFORTABLE. WILL CONTINUE TO MONITOR.
[2020-06-15 04:42] LABS: Basophils % 0.4 %; Eosinophils # 0.3 10^3/uL (0.0-0.8); Eosinophils % 3.2 %; Hematocrit 37.1 % (42.0-52.0); Hemoglobin 11.6 g/dL (11.7-16.6); Lymphocytes # 1.9 10^3/uL (0.8-4.8); Mean Corpuscular HGB Conc 31.3 g/dL (30.0-36.0); Mean Corpuscular Hemoglobin 28.4 pg (28.0-34.0); Mean Corpuscular Volume 90.9 fL (80-94); Mean Platelet Volume 9.4 fL (7.4-10.4); Monocytes % 10.1 %; Neutrophils # 6.76 10^3/uL (1.8-7.7); Neutrophils % 66.6 %; Nucleated Red Blood Cells % 0 %; Platelet Count 286 10^3/cmm (130-400); Red Blood Count 4.08 10^6/uL (4.1-5.3); White Blood Count 10.1 10^3/uL (4.0-10.0)
[2020-06-15 05:19] LABS: Alanine Aminotransferase 11 U/L (0-41); Albumin Level 3.4 g/dL (3.5-5.2); Alkaline Phosphatase 132 IU/L (40-130); Anion Gap 15.1 (5-19); Aspartate Amino Transferase 13 U/L (0-40); Blood Urea Nitrogen 26 mg/dL (8-23); Carbon Dioxide 23 mmol/L (22-29); Chloride 97 mmol/L (98-107); Globulin 2.6 g/dL (1.3-4.6); Glucose 99 mg/dL (65-115); Magnesium 2.1 mg/dL (1.7-2.3); NT Pro B Type Natriuretic Pept 360 pg/mL (0-125); Osmolality Calculated 277 mOsm/kg (285-295); Phosphorus 3.1 mg/dL (2.5-4.5); Potassium 4.1 mmol/L (3.5-5.1); Sodium 131 mmol/L (136-145); Total Bilirubin 0.4 mg/dL (0.15-1.2)
[2020-06-15] MEDS: thiamine 100 mg Tablet PO (05:59)
[2020-06-15] MEDS: dilTIAZem ER (24HR) 180 mg Capsule 360 MG PO (05:59)
[2020-06-15] MEDS: ferrous sulfate EC 325 mg Tablet PO (05:59)
[2020-06-15] MEDS: pantoprazole DR 40 mg Tablet PO (05:59)
[2020-06-15] MEDS: ascorbic acid 500 mg Tablet 1000 MG PO (05:59)
[2020-06-15] MEDS: isosorbide mononitrate 20 mg Tablet PO (06:00)
[2020-06-15] MEDS: hydroCHLOROthiazide 25 mg Tablet PO (06:00)
[2020-06-15] MEDS: BuSPIRONE 10 mg Tablet PO (06:00)
[2020-06-15] MEDS: cilostazol 100 mg Tablet 50 MG PO (06:00)
[2020-06-15] MEDS: apixaban 5 mg Tablet PO (06:02)
[2020-06-15] MEDS: lisinopril 10 mg Tablet PO (07:59)
[2020-06-15] MEDS: tamsulosin 0.4 mg Capsule PO (07:59)
[2020-06-15] MEDS: FUROsemide 20 mg Tablet PO (07:59)
--- NOTE | 2020-06-15 09:18 | PC.CHAP ---
Pastoral Care Encounter/Spiritual Assessment Type of Contact [] Declined resource technician visit [] Patient/Family/Request visit [] Outpatient visit [] Follow-up visit [] Physician referral [] Code/Alert [x] Routine visit [] Staff referral [] Actively dying [] Patient sleeping [] Family support [] [] Out of room [] Palliative care [] [] Receiving care in room [] Pre-surgical visit [] Trauma [] Long length of stay [] ICU visit [] Other: Relational/Emotional Strength [] Patient feels connected with others/family/visitors/staff [] Distress [] Loneliness/isolation [] Abandonment Spirituality of Patient [x] Person of Brandi [] Attends [employer] of their Brandi [] Believes in Prayer [] Reads Bible or Mormon materials [] There are Spiritual issues to be addressed Calibrator Barometers Interventions [x] Prayer [x] Active listening [x] Non-anxious presence []x Spiritual/emotional support [] Crisis/trauma care [] Spiritual counseling [] Bereavement support [] Provided bereavement packet [] Provided Bible/devotional materials [] Provided toy/stuffed animal, coloring book to patient or family member [] Provided Communion [] Anointing/[place] [] Salvation [x] Completed spiritual assessment [] Other: Impact on Illness or Injury [] Angry [] Fearful [] Anxious [] Often cries [] Exhaustion [] Unable to work [] Unable to attend amish [] Unable to walk/stand [] Unable to read [] Unable to drive [] Unable to eat/drink [] Unable to sleep [] Unable to be with family [] Patient intubated [] Other: Summary Patient concerned with causes of pain. requested additional breakfast... resource technician request staff to supply additional food Time spent with patient 15 min
--- NOTE | 2020-06-15 09:24 | P.PN_ITS ---
Subjective Subjective: Interval history: Patient is overall doing well. He denies any complaints of chest pain, shortness of breath or palpitations. He still has lower extremity edema. He wants to go home today. Rating well on home air. Vitals/I&O/Wt Last Vital Signs Temp 94.5 F L 06/15/20 08:00 Pulse 93 06/15/20 09:14 Resp 20 H 06/15/20 09:13 BP 130/60 06/15/20 08:00 Pulse Ox 95 06/15/20 09:13 06/14/20 06/15/20 06/15/20 22:59 06:59 14:59 Intake Total 1095 / 1654.916 240 / 1894.916 Output Total 850 / 1650 500 / 2150 Balance 245 / 4.916 -260 / -255.084 Weight last 48 hrs Weight 240 lb 14.4 oz Weight 230 lb Physical Exam Const: COMMON NORMALS: no acute distress and patient oriented x3 HENMT: COMMON NORMALS: normocephalic HEAD & SCALP: normocephalic Neck/C-Spine: COMMON NORMALS: no JVD Resp: COMMON NORMALS: normal respiratory effort, No retractions, No use of accessory muscles and clear to auscultation bilaterally AUSCULTATION: clear to auscultation bilaterally Cardio: COMMON NORMALS: no JVD, regular rate, regular rhythm, S1 normal heart sound present and S2 normal heart sound present RATE: regular rate RHYTHM: regular rhythm HEART SOUNDS: S1 normal heart sound present and S2 normal heart sound present GI: COMMON NORMALS: Normal to inspection, nondistended, normoactive bowel sounds present, Soft to palpation, non-tender, No hepatosplenomegaly present, no masses and no bruits PALPATION: Yes Soft to palpation and Yes No hepatosplen omegaly present Extremity: COMMON NORMALS: no calf tenderness NARRATIVE EXTREMITY EXAM: Patient has 2+ pitting edema Neuro: COMMON NORMALS: patient oriented x3 Psych: COMMON NORMALS: mental status grossly normal Data : 06/15/20 03:45 06/15/20 03:45 A&P Assessment and plan (1) CHF exacerbation: Status: Acute (2) Mitral regurgitation: Status: Acute Qualifiers: Cardiac valve disease etiology: nonrheumatic Qualified Code(s): I34.0 - Nonrheumatic mitral (valve) insufficiency (3) Claudication in peripheral vascular disease: Status: Acute (4) Hypertension: Status: Acute Qualifiers: Hypertension type: essential hypertension Qualified Code(s): I10 - Essential (primary) hypertension (5) Chronic anticoagulation: Status: Acute Patient has significant lower extremity edema and some shortness of breath although is saturating well on room air at this time.patient wants to go home today. Appropriate to switch back to p.o. Lasix. Afib is controlled with cardizem PO 360mg. Continue. If heart rate becomes uncontrolled again, can consider starting digoxin Continue Cilostazol. No angiogram or intervention is warranted at this time as patient had a recent one showing no obstructive disease. Doppler ultrasound does not show acute occlusion of lower extremity vasculature. Thank you for involving us with the care of this patient. Patient is stable to be discharged from cardiology standpoint. Will need close follow-up with cardiology as outpatient as has volume overload. Please call with questions Attestations Medical Necessity Statement*: Care expected to cross 2 midnights. 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
[2020-06-15] MEDS: FUROsemide 10 mg/mL SDV 4mL 40 MG IVP (09:45)
--- NOTE | 2020-06-15 10:56 | P.DS_ITS ---
Discharge Providers Date of Admission: 06/14/20 12:17 Date of Discharge: June 15, 2020 Attending Provider at Admission: Dionne Boudreaux MD Attending Provider at Discharge: Dionne Boudreaux MD Primary Care Provider: LUIS EDUARDO BATRES Diagnoses at Discharge Discharge Diagnosis (1) CHF exacerbation: Status: Acute (2) Mitral regurgitation: Status: Acute Qualifiers: Cardiac valve disease etiology: nonrheumatic Qualified Code(s): I34.0 - Nonrheumatic mitral (valve) insufficiency (3) Claudication in peripheral vascular disease: Status: Acute (4) Hypertension: Status: Acute Qualifiers: Hypertension type: essential hypertension Qualified Code(s): I10 - Essential (primary) hypertension (5) Chronic anticoagulation: Status: Acute Reason for Visit Reason for Visit: EDEMA; PAIN IN LEFT LEG Hospital Course Hospital Course Damien Stringer is a 75 year old male who has history of nonoxygen dependent COPD, restless leg syndrome, paroxysmal A. fib, chronic anticoagulation on Eliquis, preserved ejection fraction heart failure, peripheral vascular disease, angiogram 01/29 showed luminal irregularities, was recently discharged from the hospital after management of type II OK secondary to A. fib RVR, echo revealed severe mitral valve regurgitation, presented today with worsening swelling bilateral lower extremities Patient was admitted to [facility] was found to be in A. fib with RVR, requiring Cardizem drip, transitioned to p.o. Cardizem 360 mg daily, with with metoprolol 12.5 twice daily, clinically remained in A. fib, but rate was controlled less than 100, patient was relatively asymptomatic, continue home Eliquis Had elevated troponins on admission, likely type II NSTEMI supply demand ischemia from atrial fibrillation, no complaints of chest pain Patient had worsening of mitral regurg on echocardiogram, moderate to severe, patient is to follow-up with cardiology as outpatient Patient had bilateral lower extremity edema likely secondary to CHF exacerbation, with severe mitral regurg, improved with Lasix. Patient will be discharged on Lasix 40 mg daily, with potassium replacement, with close follow with primary care physician in 1 week for monitoring creatinine, potassium levels, follow-up with cardiology Patient had complaints of bilateral leg pain with exertion on admission, bilateral lower extremity ultrasounds negative for DVT, has a history of peripheral vascular disease, is on statin, cilostazol, Eliquis. Patient was evaluated for worsening peripheral vascular disease: -angiogram 01/29 showed luminal irregularities -1. There is diffuse atherosclerotic plaquing throughout the lower extremity arteries bilaterally. 2. Elevated velocities in the external iliac arteries suggesting 30-49% right proximal stenosis and 50-75% left proximal stenosis. 3. 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 4. Elevated velocities in the right popliteal artery consistent with 50-75% stenosis in the distal SFA or proximal popliteal artery. -Cardiology was consulted, advised no angiogram or intervention warranted at this time, follow up with cardiology as outpatient Had acute on chronic hyponatremia, likely secondary to hydrochlorothiazide, which has been discontinued Physical Exam Const: COMMON NORMALS: no acute distress and patient oriented x3 HENMT: COMMON NORMALS: normocephalic HEAD & SCALP: normocephalic Neck/C-Spine: COMMON NORMALS: no JVD Resp: COMMON NORMALS: normal respiratory effort, No retractions, No use of accessory muscles and clear to auscultation bilaterally AUSCULTATION: clear to auscultation bilaterally Cardio: COMMON NORMALS: no JVD, regular rate, regular rhythm, S1 normal heart sound present and S2 normal heart sound present RATE: regular rate RHYTHM: regular rhythm HEART SOUNDS: S1 normal heart sound present and S2 normal heart sound present GI: COMMON NORMALS: Normal to inspection, nondistended, normoactive bowel sounds present, Soft to palpation, non-tender, No hepatosplenomegaly present, no masses and no bruits PALPATION: Yes Soft to palpation and Yes No hepatosplenomegaly present Extremity: COMMON NORMALS: capillary refill normal, no clubbing, cyanosis or edema, no calf tenderness and no pedal edema Neuro: COMMON NORMALS: patient oriented x3 Psych: COMMON NORMALS: mental status grossly normal Discharge Data Data Completed and Pending: Completed Studies During Hospitalization Category Date Time Status XR chest 1V rebecca ble [id number] Stat Exams 06/13/20 18:56 [place] [id number] Rout ine Ultrasound 06/14/20 08:12 [place] [id number] Urgent Ultrasound 06/13/20 18:58 Completed US renal BI* [id number] Routine Ultrasound 06/14/20 11:59 Completed Pending at discharge Category Date Time Status Complete Blood Co unt w/Auto AM LABS Lab 06/16/20 04:00 Ordered Complete Blood Co unt w/Auto AM LABS Lab 06/17/20 04:00 Ordered Comprehensive Met abolic Panel AM LA BS Lab 06/16/20 04:00 Ordered Comprehensive Met abolic Panel AM LA BS Lab 06/17/20 04:00 Ordered Magnesium AM LABS Lab 06/16/20 04:00 Ordered Magnesium AM LABS Lab 06/17/20 04:00 Ordered NT Pro B Type Clara riuretic Pept QAM Lab 06/16/20 06:00 Ordered NT Pro B Type Clara riuretic Pept QAM Lab 06/17/20 06:00 Ordered Phosphorus AM LAB S Lab 06/16/20 04:00 Ordered Phosphorus AM LAB S Lab 06/17/20 04:00 Ordered Labs from last 24 hours 06/15/20 06/15/20 03:45 03:45 WBC 10.1 H RBC 4.08 L Hgb 11.6 L Hct 37.1 L MCV 90.9 MCH 28.4 MCHC 31.3 RDW 19.0 H Plt Count 286 MPV 9.4 Neut % (Auto) 66.6 Lymph % (Auto) 19.0 [place] % (Auto) 10.1 Eos % (Auto) 3.2 Baso % (Auto) 0.4 Neut # (Auto) 6.76 Lymph # (Auto) 1.9 [place] # (Auto) 1.0 H Eos # (Auto) 0.3 Baso # (Auto) 0.0 Nucleated RBC % (a uto) 0 Nucleated RBCs # 0.0 Sodium 131 L Potassium 4.1 Chloride 97 L Carbon Dioxide 23 Anion Gap 15.1 BUN 26 H Creatinine 0.9 GFR Calculation Not Reportable Glucose 99 Calculated Osmolal ity 277 L Calcium 9.0 Phosphorus 3.1 Magnesium 2.1 Total Bilirubin 0.4 AST 13 ALT 11 Alkaline Phosphata se 132 H NT-Pro-B Natriuret Pep 360 H Total Protein 6.0 L Albumin 3.4 L Globulin 2.6 Vitals: Last Vital Signs Temp 94.5 F L 06/15/20 08:00 Pulse 93 06/15/20 09:14 Resp 20 H 06/15/20 09:13 BP 130/60 06/15/20 08:00 Pulse Ox 95 06/15/20 09:13 Discharge Plan Discharge Patient Disposition: Home Condition: Stable Prescriptions: New furosemide 40 mg tablet 40 mg PO DAILY@0800 30 Days Qty: 30 RF: 0 diltiazem HCl [DILT-XR] 180 mg Capsule,Ext.Rel 24h Degradable 360 mg PO DAILY@06 30 Days Qty: 30 RF: 0 metoprolol tartrate 25 mg Tablet 12.5 mg PO Q12H 30 Days Qty: 30 RF: 0 lisinopril 10 mg Tablet 10 mg PO DAILY 30 Days Qty: 30 RF: 0 potassium chloride [Klor-Con 10] 10 mEq tablet extended release 10 meq PO DAILY 30 Days Qty: 30 RF: 0 Continued ascorbate calcium (vitamin C) 500 mg tablet 1 gm PO BID@,18 RF: 0 albuterol sulfate 2.5 mg /3 mL (0.083 %) solution for nebulization 2.5 mg inhalation Q6H PRN (Reason: Shortness Of Breath) RF: 0 ropinirole 3 mg Tablet 3 mg PO DAILY@19 RF: 0 mirtazapine 30 mg Tablet 30 mg PO DAILY@18 RF: 0 ferrous sulfate [iron] 325 mg (65 mg iron) Tablet 325 mg PO DAILY@06 RF: 0 cilostazol 50 mg tablet 50 mg PO BID@ RF: 0 albuterol sulfate 90 mcg/actuation HFA aerosol inhaler 2 inh INHALATION Q4H PRN (Reason: shortness of breath or wheezing) Qty: 18 RF: 0 potassium gluconate 595 mg (99 mg) Tablet 595 mg PO DAILY@06 RF: 0 methenamine hippurate 1 gram tablet 1 gm PO BID@ RF: 0 pantoprazole [Protonix] 40 mg tablet,delayed release (DR/EC) 40 mg PO DAILY@06 RF: 0 buspirone 10 mg tablet 10 mg PO BID@, RF: 0 thiamine mononitrate (vit B1) [Vitamin B-1 (mononitrate)] 100 mg tablet 100 mg PO DAILY@06 RF: 0 fluticasone propion-salmeterol [Advair Diskus] 250-50 mcg/dose Blister With Device 1 puff inhalation BID.RESPIRATORY Qty: 1 RF: 0 isosorbide mononitrate 20 mg tablet 20 mg PO BID@ RF: 0 pravastatin [Pravachol] 40 mg tablet 40 mg PO DAILY@18 RF: 0 tamsulosin [Flomax] 0.4 mg capsule 0.4 mg PO DAILY@06 RF: 0 fluticasone propionate [Flonase Allergy Relief] 50 mcg/actuation spray,suspension 2 spray INTRANASAL DAILY PRN (Reason: Allergy Symptoms) RF: 0 Spiriva Respimat 2.5 mcg/actuation mist 1 puff INHALATION BID RF: 0 Eliquis 5 mg tablet 5 mg PO BID@18 RF: 0 Hold Instructions: Resume on 04/27/20. Discontinued sulfamethoxazole-trimethoprim 800-160 mg tablet 1 tab PO BID@,18 RF: 0 diltiazem HCl [DILT-XR] 240 mg capsule,ext.rel 24h degradable 240 mg PO DAILY@06 RF: 0 hydrochlorothiazide 25 mg tablet 25 mg PO DAILY@06 RF: 0 Discharge Orders: Discharge Order (Routine); Ordered 06/15/20 Ordered By: Alonso Cotto Other Ambulatory Orders: Comprehensive Metabolic Panel (Routine) Timeframe: 1 Week Facility: [facility] - Location: Lab - Main Lab Ordered By: Alonso Cotto Referrals: Yury Fernandez M.D [Physician] - 2 weeks Discharge Diet: Cardiac Discharge Activity: Resume usual activity Activity Restrictions/Additional Instructions: -I have discharged you on Lasix 40 mg daily for fluid overload -Please recheck blood work at primary care physician's office in 1 week -Check creatinine, check potassium levels -If you have sudden worsening of bilateral lower extremity swelling, or pain address go to the emergency room Discharge Attestations Time Spent in Discharge Care*: greater than 30 min Status at Discharge: Cognitive status at discharge: cognitively intact , Behavioral status at discharge: cooperative , Quality Metrics Clinical Quality Measures During this hospital stay, did patient experience: None Coding Level of Care Code Acute Plant Wrapper for Chg Fwd Diagnoses CHF exacerbation I50.9 Mitral regurgitation I34.0 Cardiac valve disease etiology: nonrheumatic Claudication in peripheral vascular disease I73.9 Hypertension I10 Hypertension type: essential hypertension Chronic anticoagulation Z79.01
[2020-06-15] MEDS: metoprolol tartrate 25 mg Tablet 12.5 MG PO (12:59)
--- NOTE | 2020-06-15 14:25 | PC.NURSE ---
Discharge instructions given per the physicians's orders. Patient verbalized understanding of teaching and did not have any further questions. IV has been removed. web content & social media manager contacted taxi services for transportation home. No further needs identified at this time.
--- NOTE | 2020-06-15 16:15 | PC.RESP ---
Pulmonary Rehab information sent to patient.
== END 2020-06-15 14:25 | disposition home or self-care (01) ==
LOC: ER 18:38 → CSU 22:26
PROVIDERS: Family Medicine; Admitting Provider Internal Medicine; Emergency Provider Emergency Medicine; PCP Nurse Practitioner Family; Visit Provider Internal Medicine
DX: I48.0 Paroxysmal atrial fibrillation (principal); I73.9 Peripheral vascular disease, unspecified; Z79.01 Long term (current) use of anticoagulants; I11.0 Hypertensive heart disease with heart failure; I50.9 Heart failure, unspecified; R60.0 Localized edema; I34.0 Nonrheumatic mitral (valve) insufficiency; J44.9 Chronic obstructive pulmonary disease, unspecified; I25.2 Old myocardial infarction; G47.33 Obstructive sleep apnea (adult) (pediatric); F41.9 Anxiety disorder, unspecified; F32.9 Major depressive disorder, single episode, unspecified; E78.5 Hyperlipidemia, unspecified; Z87.891 Personal history of nicotine dependence; Z82.49 Family history of ischemic heart disease and other diseases of the circulatory system
CPT/HCPCS: 12345; 36415; 71045; 76770; 80048; 80053; 81001; 81003; 83735; 83880; 84100; 84443; 84484; 85025; 85610; 85730; 93005; 93925; 93970; 94640; 96365; 96366; 96375; 99282; 99285; G0378; J1940; J2060; J3490; J3535; J7040; J7614

== ENCOUNTER 2020-06-17 20:40 | Emergency (ER) | payer MEDICARE, MEDICAID, SELFPAY ==
--- NOTE | 2020-06-17 20:44 | XR_ITS ---
WS: [id number] Portable AP upright chest, 06/17/2020 Clinical Data: CP Comparison: Portable chest, 06/13/2020. Findings: No nodules or masses are seen. There is a minimal left pleural effusion with minimal atelec tasis over the surface of the lateral left diaphragm.. The heart is large. The pulmonary vascularity is not increased. No pneumonia or pneumothorax is seen. The aortic arch and descending aorta show sri cification and tortuosity. XR/XR chest 1V portable [id number] Impression: Atherosclerosis and cardiomegaly.
--- NOTE | 2020-06-17 20:44 | ECG_ITS ---
[facility] Test Date: 2020-06-17 Pat Name: Damien Stringer Department: Room: Gender: Male Registered Occupational Therapist: : 1945 Requested By: Josh Jorgensen Order Number: [id number] Clarita MD: Marita nAsari M.D. Measurements Intervals [place] Rate: 98 P: [place]: QRS: 47 QRSD: 85 T: 70 QT: 344 QTc: 439 Interpretive Statements ATRIAL FIBRILLATION LOW QRS VOLTAGE IN EXTREMITY LEADS [QRS DEFLECTION < 0.5 mV IN LIMB LEADS] ABNORMAL RHYTHM ECG Compared to ECG 06/14/2020 06:28:18 Ventricular premature complex(es) no longer present Aberrant conduction of supraventricular beat(s) no longer present Myocardial infarct finding no longer present Electronically Signed On 06-18-2020 20:51:16 FINAL EXPENSE AGENT by Marita Ansari M.D. [id number]
[2020-06-17 20:45] VITALS: BP 155/74; PULSE 104; RESP 22; O2SAT 94; BMI 17.0
--- NOTE | 2020-06-17 21:16 | W.ED.CHESTPA ---
HPI - Chest Pain General: Chief Complaint: Chest Pain Stated Complaint: etoh chest pain Time Seen by Provider: 06/17/20 20:43 History of Present Illness: HPI narrative: Patient arrived via ambulance with complaints that he had some chest pressure some shortness of breath. Also been drinking quite a bit today. Patient is a chronic alcoholic. Said he had quite a few shots of whiskey. No chest pain presently MD complaint: chest heaviness Pertinent past history: coronary artery disease Onset (ago): hour(s) Timing of current episode: episodic Prior episodes: Yes Onset: during rest Pain location: left chest Pain radiation: none Severity: mild Quality: heaviness Relieving factors: nothing Exacerbating factors: nothing Associated symptoms: Reports dyspnea and other (Shortness of breath); Deny abdominal pain, fever(s), nausea or vomiting Review of Systems Const: Denies: fever(s), chills or body aches Eyes: Denies: change in vision or blurry vision ENMT: Denies: throat pain or nasal congestion Card: Reports: chest pain and swelling of feet/ankles; Denies: dyspnea on exertion Resp: Reports: dyspnea; Denies: productive cough or non-productive cough GI: Denies: abdominal pain, nausea or vomiting : Denies: difficulty urinating Musc: Denies: extremity pain Skin/Breast: Denies: rash Neuro: Denies: headache(s) Psych: Denies: anxiety or depression Geovanni/Lymph: Denies: easy bruising PFS ED PFSH: Medical History Anxiety and depression Atrial fibrillation Bladder cancer Chronic anticoagulation Chronic cystitis COPD (chronic obstructive pulmonary disease) Enlarged prostate Genital lesion, male History of prostate cancer Hyperlipidemia Hypertension Iron deficiency anemia Left atrial enlargement 4.9 cm width Mitral regurgitation Peripheral vascular disease of extremity Renal calculi Surgical History H/O esophagogastroduodenoscopy H/O eye surgery H/O eye surgery detached retina left eye History of colonoscopy (~2004) History of laparotomy History of lithotripsy History of ureter stent Family History Mother , at age 94 Hypertension Heart disease Father , at age 72 Renal disease Heart disease Brother Heart disease Other CAD (coronary artery disease) Cancer Denies family history of Anesthesia complication Bleeding disorder Social History Smoking and tobacco status: former smoker Quit status (tobacco): has quit using tobacco Year quit tobacco: 2019 - 1PPD x 50 Years Second hand smoke exposure: Yes Smoking risk assessment/counseling performed?: No Alcohol intake: former Year of sobriety/quit date alcohol: 2019 Desire information about alcohol rehabilitation?: No Counseling given: No Adopted: No Caregiver/support person: No Lives independently: Yes Household members: none Marital status: Single Current occupational status: retired History of recent travel: No Current gender identity: Male Physical Exam Const: COMMON NORMALS: no acute distress, average body habitus, patient oriented x3 and alert (Slightly intoxicated) HENMT: COMMON NORMALS: normocephalic HEAD & SCALP: normal to inspection and normocephalic FACE & SINUS: normal facial exam Eye: COMMON NORMALS: conjunctivae normal GENERAL EYE: appearance normal, both eyes and all related structures CONJUNCTIVA: Yes conjunctivae normal Neck/C-Spine: COMMON NORMALS: no JVD Chest: COMMONS NORMALS: normal inspection of the chest Resp: COMMON NORMALS: normal respiratory effort and clear to auscultation bilaterally AUSCULTATION: clear to auscultation bilaterally Cardio: COMMON NORMALS: no JVD, regular rate and regular rhythm RATE: regular rate RHYTHM: regular rhythm OTHER: 2+ edema lower extremities GI: COMMON NORMALS: Normal to inspection, nondistended, normoactive bowel sounds present (Obese) Extremity: COMMON NORMALS: normal to inspection and full ROM Neuro: COMMON NORMALS: patient oriented x3 SENSORIUM/ORIENTATION: Yes alert (Slightly intoxicated) Course Vital Signs: Vital signs: Vital Signs Pulse Rate 95 06/17/20 21:55 Respiratory Rate 18 06/17/20 21:55 Blood Pressure 145/75 06/17/20 21:55 Pulse Oximetry 94 06/17/20 21:55 MDM - Chest Pain MDM Narrative: Medical decision making narrative: Dr. Grullon asked that would see this patient due to incoming trauma. Discussed labs Dr. Grullon. Labs consistent with previous labs last 2 times he is here in the hospital. Patient without chest pain no shortness of breath has been sleeping since here. Alcohol level is high sister agreed to come take him back home and he lives with her and she watches him she states. Lab Data: Labs: Lab Results 06/17/20 06/17/20 06/17/20 Range/Units 21:20 21:20 21:20 WBC 8.7 (4.0-10.0) 10^3/ uL RBC 4.42 (4.1-5.3) 10^6/u L Hgb 12.4 (11.7-16.6) g/dL Hct 39.1 L (42.0-52.0) % MCV 88.5 (80-94) fL MCH 28.1 (28.0-34.0) pg MCHC 31.7 (30.0-36.0) g/dL RDW 18.6 H (12.1-15.1) % Plt Count 260 (130-400) 10^3/c mm MPV 9.0 (7.4-10.4) fL Neut % (Auto) 65.7 % Lymph % (Auto) 22.9 % [place] % (Auto) 7.8 % Eos % (Auto) 2.4 % Baso % (Auto) 0.7 % Neut # (Auto) 5.75 (1.8-7.7) 10^3/u L Lymph # (Auto) 2.0 (0.8-4.8) 10^3/u L [place] # (Auto) 0.7 (0.2-0.9) 10^3/u L Eos # (Auto) 0.2 (0.0-0.8) 10^3/u L Baso # (Auto) 0.1 (0.0-0.1) 10^3/u L Nucleated RBC % (a uto) 0 % Nucleated RBCs # 0.0 /100WBC Sodium 132 L (136-145) mmol/L Potassium 3.5 (3.5-5.1) mmol/L Chloride 93 L (98-107) mmol/L Carbon Dioxide 30 H (22-29) mmol/L Anion Gap 12.5 (5-19) BUN 12 (8-23) mg/dL Creatinine 0.9 (0.7-1.2) mg/dL GFR Calculation Not Reportable Glucose 103 (65-115) mg/dL Calculated Osmolal ity 274 L (285-295) mOsm/k g Calcium 8.8 (8.5-10.5) mg/dL Total Bilirubin 0.2 (0.15-1.2) mg/dL AST 18 (0-40) U/L ALT 14 (0-41) U/L Alkaline Phosphata se 153 H (40-130) IU/L Troponin T Baselin e 31 H (0-15) ng/L NT-Pro-B Natriuret Pep 572 H (0-125) pg/mL Total Protein 6.1 L (6.6-8.7) g/dL Albumin 3.8 (3.5-5.2) g/dL Globulin 2.3 (1.3-4.6) g/dL Ethyl Alcohol 302 H* (0-10) mg/dL EKG Data^: EKG 1: EKG interpretation date: 06/17/20 EKG interpretation time: 21:18 Computer generated interpretation: A fib , 98 bpm Discharge Plan Discharge Patient Disposition: Home Clinical Impression: Atypical chest pain, Alcoholism Condition: Stable Prescriptions: No Action ascorbate calcium (vitamin C) 500 mg tablet 1 gm PO BID@ RF: 0 albuterol sulfate 2.5 mg /3 mL (0.083 %) solution for nebulization 2.5 mg inhalation Q6H PRN (Reason: Shortness Of Breath) RF: 0 ropinirole 3 mg Tablet 3 mg PO DAILY@19 RF: 0 mirtazapine 30 mg Tablet 30 mg PO DAILY@ RF: 0 ferrous sulfate [iron] 325 mg (65 mg iron) Tablet 325 mg PO DAILY@06 RF: 0 cilostazol 50 mg tablet 50 mg PO BID@ RF: 0 albuterol sulfate 90 mcg/actuation HFA aerosol inhaler 2 inh INHALATION Q4H PRN (Reason: shortness of breath or wheezing) Qty: 18 RF: 0 potassium gluconate 595 mg (99 mg) Tablet 595 mg PO DAILY@06 RF: 0 methenamine hippurate 1 gram tablet 1 gm PO BID@ RF: 0 pantoprazole [Protonix] 40 mg tablet,delayed release (DR/EC) 40 mg PO DAILY@06 RF: 0 buspirone 10 mg tablet 10 mg PO BID@06,18 RF: 0 thiamine mononitrate (vit B1) [Vitamin B-1 (mononitrate)] 100 mg tablet 100 mg PO DAILY@06 RF: 0 fluticasone propion-salmeterol [Advair Diskus] 250-50 mcg/dose Blister With Device 1 puff inhalation BID.RESPIRATORY Qty: 1 RF: 0 furosemide 40 mg tablet 40 mg PO DAILY@0800 30 Days Qty: 30 RF: 0 lisinopril 10 mg Tablet 10 mg PO DAILY 30 Days Qty: 30 RF: 0 DILT-XR 180 mg Capsule,Ext.Rel 24h Degradable 360 mg PO DAILY@06 30 Days Qty: 30 RF: 0 metoprolol tartrate 25 mg Tablet 12.5 mg PO Q12H 30 Days Qty: 30 RF: 0 Klor-Con 10 10 mEq tablet extended release 10 meq PO DAILY 30 Days Qty: 30 RF: 0 isosorbide mononitrate 20 mg tablet 20 mg PO BID@,18 RF: 0 pravastatin [Pravachol] 40 mg tablet 40 mg PO DAILY@18 RF: 0 tamsulosin [Flomax] 0.4 mg capsule 0.4 mg PO DAILY@06 RF: 0 fluticasone propionate [Flonase Allergy Relief] 50 mcg/actuation spray,suspension 2 spray INTRANASAL DAILY PRN (Reason: Allergy Symptoms) RF: 0 Spiriva Respimat 2.5 mcg/actuation mist 1 puff INHALATION BID RF: 0 Eliquis 5 mg tablet 5 mg PO BID@,18 RF: 0 Hold Instructions: Resume on 04/27/20. Discharge Orders: Discharge ED (Routine); Ordered 06/17/20 Ordered By: Josh Jorgensen Referrals: LUIS EDUARDO BATRES TANKER DRIVER [Primary Care Provider] - Discharge Diet: Usual diet Discharge Activity: Increase activity as tolerated Patient Instructions: Abuse of Alcohol (ED) Activity Restrictions/Additional Instructions: Follow-up your family medical provider as scheduled can return the ER if worsening symptoms. Try to avoid alcohol intake if at all possible. Coding Level of Care Code ED Bridal Stylist Sales Consultant for [place] Fwd Exam Comprehensive
[2020-06-17] MEDS: sodium chloride 0.9% 1,000 ML 999 ML IV (21:30)
[2020-06-17 21:55] VITALS: BP 145/75; PULSE 95; RESP 18; O2SAT 94
[2020-06-17 22:01] LABS: Troponin(5th) Baseline 31 ng/L (0-15)
[2020-06-17 22:09] LABS: Alanine Aminotransferase 14 U/L (0-41); Albumin Level 3.8 g/dL (3.5-5.2); Alkaline Phosphatase 153 IU/L (40-130); Anion Gap 12.5 (5-19); Aspartate Amino Transferase 18 U/L (0-40); Blood Urea Nitrogen 12 mg/dL (8-23); Calcium 8.8 mg/dL (8.5-10.5); Carbon Dioxide 30 mmol/L (22-29); Chloride 93 mmol/L (98-107); Globulin 2.3 g/dL (1.3-4.6); Glucose 103 mg/dL (65-115); NT Pro B Type Natriuretic Pept 572 pg/mL (0-125); Osmolality Calculated 274 mOsm/kg (285-295); Potassium 3.5 mmol/L (3.5-5.1); Sodium 132 mmol/L (136-145); Total Bilirubin 0.2 mg/dL (0.15-1.2); Total Protein 6.1 g/dL (6.6-8.7)
[2020-06-17 22:13] LABS: Basophils # 0.1 10^3/uL (0.0-0.1); Basophils % 0.7 %; Eosinophils # 0.2 10^3/uL (0.0-0.8); Eosinophils % 2.4 %; Hematocrit 39.1 % (42.0-52.0); Hemoglobin 12.4 g/dL (11.7-16.6); Lymphocytes % 22.9 %; Mean Corpuscular HGB Conc 31.7 g/dL (30.0-36.0); Mean Corpuscular Hemoglobin 28.1 pg (28.0-34.0); Mean Corpuscular Volume 88.5 fL (80-94); Monocytes # 0.7 10^3/uL (0.2-0.9); Monocytes % 7.8 %; Neutrophils # 5.75 10^3/uL (1.8-7.7); Neutrophils % 65.7 %; Nucleated Red Blood Cells % 0 %; Platelet Count 260 10^3/cmm (130-400); Red Blood Count 4.42 10^6/uL (4.1-5.3); Red Cell Distribution Width 18.6 % (12.1-15.1); White Blood Count 8.7 10^3/uL (4.0-10.0)
[2020-06-17 22:30] LABS: Alcohol Level 302 mg/dL (0-10)
--- NOTE | 2020-06-17 22:44 | ECG_ITS ---
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 Measurements Intervals [place] Rate: 101 P: SD: QRS: 31 QRSD: 76 T: 59 QT: 327 QTc: 425 Interpretive Statements ATRIAL FIBRILLATION WITH RAPID VENTRICULAR RESPONSE ABNORMAL RHYTHM ECG Compared to ECG 06/17/2020 21:18:37 No significant changes Electronically Signed On 06-18-2020 21:34:29 COOK CHIEF by Marita Ansari M.D. [id number]
[2020-06-17 23:16] VITALS: BP 145/75; PULSE 92; RESP 23; O2SAT 92
== END 2020-06-17 22:56 | disposition home or self-care (01) ==
PROVIDERS: Emergency Provider Nurse Practitioner Family; PCP Nurse Practitioner Family
DX: R07.89 Other chest pain (principal); F10.20 Alcohol dependence, uncomplicated; Y90.8 Blood alcohol level of 240 mg/100 ml or more; Z79.01 Long term (current) use of anticoagulants; I48.91 Unspecified atrial fibrillation; Z85.51 Personal history of malignant neoplasm of bladder; J44.9 Chronic obstructive pulmonary disease, unspecified; Z85.46 Personal history of malignant neoplasm of prostate; E78.5 Hyperlipidemia, unspecified; I10 Essential (primary) hypertension; Z87.891 Personal history of nicotine dependence
CPT/HCPCS: 12345; 71045; 80053; 80307; 83880; 84484; 85025; 93005; 96360; 99282; 99283; J7030

== ENCOUNTER 2020-06-23 04:32 | Inpatient (IN) | payer MEDICARE, MEDICAID, SELFPAY ==
[2020-06-23] VITALS (53 sets, daily range): BP systolic 91–166; BP diastolic 53–92; PULSE 63–164; RESP 14–28; TEMP 36.4–37; O2SAT 94–100; BMI 29.2
--- NOTE | 2020-06-23 04:33 | XRR_ITS ---
PROCEDURE INFORMATION: Exam: XR Chest, 1 View Exam date and time: 06/23/2020 5:11 AM Age: 75 years old Clinical indication: Shortness of breath; Patient HX: Copd, intubated, covid +, HX of bladder and prostate cancer; Additional info: SOB TECHNIQUE: Imaging protocol: XR of the chest Views: 1 view. COMPARISON: CR XR chest 1V portable [id number] 06/17/2020 8:49 PM FINDINGS: Tubes, catheters and devices: An endotracheal tube and nasogastric tube appear in satisfactory position. Lungs: There are prominent bibasilar pulmonary infiltrates that are new and have developed since the previous chest x-ray from 06/17/2020. Pleural space: Unremarkable. No pleural effusion. No pneumothorax. Heart/Mediastinum: Unremarkable. No cardiomegaly. Bones/joints: Unremarkable. XR/XR chest 1V portable [id number] IMPRESSION: There are new prominent bibasilar pulmonary infiltrates which have developed since 06/17/2020.
--- NOTE | 2020-06-23 04:34 | ECG_ITS ---
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 Measurements Intervals [place] Rate: 103 P: PA: QRS: 46 QRSD: 85 T: 60 QT: 323 QTc: 425 Interpretive Statements ATRIAL FIBRILLATION WITH RAPID VENTRICULAR RESPONSE ABNORMAL RHYTHM ECG INTERPRETATION BASED ON A DEFAULT AGE OF 40 YEARS Compared to ECG 06/17/2020 22:32:25 No significant changes Electronically Signed On 06-23-2020 21:34:45 MEDICAL TRANSCRIPTION EDITOR by Duy Yip M.D. [id number]
--- NOTE | 2020-06-23 04:35 | ED_ITS ---
HPI - SOB/Dyspnea General: Chief Complaint: Shortness of Breath/Dyspnea Stated Complaint: Resp Distress Time Seen by Provider: 06/23/20 04:33 Source: EMS Mode of arrival: EMS Limitations: no limitations History of Present Illness: HPI Narrative: 75-year-old male with a long history of COPD who called EMS for increasing shortness of breath. EMS states when he arrived he was in distress and satting in the 70s. He would not tolerate BiPAP or CPAP and electively wanted to be intubated. Patient was intubated at scene by EMS. Patient is currently sedated and intubated. He had no known sick contacts per EMS. He had no fever. Patient is given breathing treatments in route along with Solu-Medrol. Review of Systems General: Reports: ROS unobtainable due to mental status PFSH ED PFSH: Medical History Anxiety and depression Atrial fibrillation Bladder cancer Chronic anticoagulation Chronic cystitis COPD (chronic obstructive pulmonary disease) Enlarged prostate Genital lesion, male History of prostate cancer Hyperlipidemia Hypertension Iron deficiency anemia Left atrial enlargement 4.9 cm width Mitral regurgitation Peripheral vascular disease of extremity Renal calculi Surgical History H/O esophagogastroduodenoscopy H/O eye surgery H/O eye surgery detached retina left eye History of colonoscopy (~2004) History of laparotomy History of lithotripsy History of ureter stent Family History Mother , at age 94 Hypertension Heart disease Father , at age 72 Renal disease Heart disease Brother Heart disease Other CAD (coronary artery disease) Cancer Denies family history of Anesthesia complication Bleeding disorder Social History Smoking and tobacco status: former smoker Quit status (tobacco): has quit using tobacco Year quit tobacco: 2019 - 1PPD x 50 Years Second hand smoke exposure: Yes Smoking risk assessment/counseling performed?: No Alcohol intake: former Year of sobriety/quit date alcohol: 2019 Desire information about alcohol rehabilitation?: No Counseling given: No Adopted: No Caregiver/support person: No Lives independently: Yes Household members: none Marital status: Single Current occupational status: retired History of recent travel: No Current gender identity: Male Physical Exam Const: COMMON NORMALS: negative for patient oriented x3 GENERAL APPEARANCE: in distress OTHER: Intubated HENMT: COMMON NORMALS: normocephalic and atraumatic HEAD & SCALP: normocephalic and atraumatic Eye: COMMON NORMALS: Equal, round and reactive pupils present and EOMs intact bilaterally PUPIL: Yes Equal, round and reactive pupils present Neck/C-Spine: COMMON NORMALS: full ROM and supple Chest: COMMONS NORMALS: normal inspection of the chest and normal palpation of entire chest wall Resp: COMMON NORMALS: No retractions and No use of accessory muscles OTHER: Intubated breath sounds bilaterally wheezing Cardio: COMMON NORMALS: regular rate, regular rhythm and No murmurs present (Cardio) RATE: regular rate RHYTHM: regular rhythm GI: COMMON NORMALS: Normal to inspection, nondistended, normoactive bowel sounds present, Soft to palpation, non-tender and no masses PALPATION: Yes Soft to palpation Extremity: COMMON NORMALS: normal to inspection and full ROM Neuro: COMMON NORMALS: negative for patient oriented x3 Psych: COMMON NORMALS: negative for mental status grossly normal Skin: COMMON NORMALS: no rashes or lesions noted and no wounds GENERAL SKIN EXAM: no rashes or lesions noted Course Vital Signs: Vital signs: Vital Signs Temperature 97.7 F 06/23/20 04:32 Pulse Rate 107 H 06/23/20 05:14 Respiratory Rate 18 06/23/20 05:28 Blood Pressure 166/81 06/23/20 05:14 Pulse Oximetry 96 06/23/20 05:14 MDM - SOB/Dyspnea MDM Narrative: Medical decision making narrative: Patient presents here with bilateral pneumonia along with COPD exacerbation and respiratory failure. Patient was intubated in route by EMS. Patient's been tolerating the vent while here. Patient started on IV antibiotics. His Covid test here is negative. Spoke to hospitalist will admit to the ICU. Lab Data: Labs: Lab Results 06/23/20 06/23/20 06/23/20 Range/Units 04:00 04:00 04:00 WBC 15.6 H (4.0-10.0) 10^3/ uL RBC 4.73 (4.1-5.3) 10^6/u L Hgb 13.6 (11.7-16.6) g/dL Hct 44.4 (42.0-52.0) % MCV 93.9 (80-94) fL MCH 28.8 (28.0-34.0) pg MCHC 30.6 (30.0-36.0) g/dL RDW 18.4 H (12.1-15.1) % Plt Count 276 (130-400) 10^3/c mm MPV 9.6 (7.4-10.4) fL Neut % (Auto) 73.4 % Lymph % (Auto) 19.0 % [place] % (Auto) 5.1 % Eos % (Auto) 1.5 % Baso % (Auto) 0.4 % Neut # (Auto) 11.48 H (1.8-7.7) 10^3/u L Lymph # (Auto) 3.0 (0.8-4.8) 10^3/u L [place] # (Auto) 0.8 (0.2-0.9) 10^3/u L Eos # (Auto) 0.2 (0.0-0.8) 10^3/u L Baso # (Auto) 0.1 (0.0-0.1) 10^3/u L Nucleated RBC % (a uto) 0 % Nucleated RBCs # 0.0 /100WBC PT 14.70 (12.1-14.9) SECO NDS INR 1.11 (0.8-1.2) Specimen Type Sample Site ABG pO2 (80.0-100.0) mmH g ABG HCO3 (22-26) mmol/L ABG Base Excess (-2.0-2.0) mmol/ L Ancelmo Test Hematocrit (42-52) % Hgb O2 Saturation (95-100) % Carboxyhemoglobin (0.4-20.1) %THgb Methemoglobin (0.4-1.5) % Total Hemoglobin (14-18) g/dL O2 Delivery Device O2 Liters/Min % FiO2 % Tidal Volume PEEP cmH20 [employer] Sales Representative ID Sodium 137 (136-145) mmol/L Potassium 5.7 H (3.5-5.1) mmol/L Chloride 100 (98-107) mmol/L Carbon Dioxide 26 (22-29) mmol/L Anion Gap 16.7 (5-19) BUN 13 (8-23) mg/dL Creatinine 0.8 (0.7-1.2) mg/dL GFR Calculation Not Reportable Glucose 101 (65-115) mg/dL Calculated Osmolal ity 284 L (285-295) mOsm/k g Calcium 9.6 (8.5-10.5) mg/dL Total Bilirubin 0.5 (0.15-1.2) mg/dL AST 27 (0-40) U/L ALT 16 (0-41) U/L Alkaline Phosphata se 189 H (40-130) IU/L Troponin T Baselin e (0-15) ng/L NT-Pro-B Natriuret Pep 745 H (0-125) pg/mL Total Protein 7.1 (6.6-8.7) g/dL Albumin 4.4 (3.5-5.2) g/dL Globulin 2.7 (1.3-4.6) g/dL Ethyl Alcohol < 10 (0-10) mg/dL SARS-CoV-2 Ag (Rap id) (Negative) 06/23/20 06/23/20 06/23/20 Range/Units 04:00 04:59 05:05 WBC (4.0-10.0) 10^3/ uL RBC (4.1-5.3) 10^6/u L Hgb (11.7-16.6) g/dL Hct (42.0-52.0) % MCV (80-94) fL MCH (28.0-34.0) pg MCHC (30.0-36.0) g/dL RDW (12.1-15.1) % Plt Count (130-400) 10^3/c mm MPV (7.4-10.4) fL Neut % (Auto) % Lymph % (Auto) % [place] % (Auto) % Eos % (Auto) % Baso % (Auto) % Neut # (Auto) (1.8-7.7) 10^3/u L Lymph # (Auto) (0.8-4.8) 10^3/u L [place] # (Auto) (0.2-0.9) 10^3/u L Eos # (Auto) (0.0-0.8) 10^3/u L Baso # (Auto) (0.0-0.1) 10^3/u L Nucleated RBC % (a uto) % Nucleated RBCs # /100WBC PT (12.1-14.9) SECO NDS INR (0.8-1.2) Specimen Type Arterial Sample Site Radial, right ABG pO2 124.0 H (80.0-100.0) mmH g ABG HCO3 24.9 (22-26) mmol/L ABG Base Excess -5.4 L (-2.0-2.0) mmol/ L Ancelmo Test Pos Hematocrit 39.7 L (42-52) % Hgb O2 Saturation 95.4 (95-100) % Carboxyhemoglobin 2.0 (0.4-20.1) %THgb Methemoglobin 0.6 (0.4-1.5) % Total Hemoglobin 13.0 L (14-18) g/dL O2 Delivery Device Vent O2 Liters/Min 14.0 % FiO2 80.0 % Tidal Volume 0.55 PEEP 8.0 cmH20 [employer] Sales Representative ID Jlg Sodium (136-145) mmol/L Potassium (3.5-5.1) mmol/L Chloride (98-107) mmol/L Carbon Dioxide (22-29) mmol/L Anion Gap (5-19) BUN (8-23) mg/dL Creatinine (0.7-1.2) mg/dL GFR Calculation Glucose (65-115) mg/dL Calculated Osmolal ity (285-295) mOsm/k g Calcium (8.5-10.5) mg/dL Total Bilirubin (0.15-1.2) mg/dL AST (0-40) U/L ALT (0-41) U/L Alkaline Phosphata se (40-130) IU/L Troponin T Baselin e 26 H (0-15) ng/L NT-Pro-B Natriuret Pep (0-125) pg/mL Total Protein (6.6-8.7) g/dL Albumin (3.5-5.2) g/dL Globulin (1.3-4.6) g/dL Ethyl Alcohol (0-10) mg/dL SARS-CoV-2 Ag (Rap id) Negative (Negative) EKG Data^: EKG 1: Attestation: I personally reviewed and interpreted this EKG as follows: EKG Interpretation Date: 06/23/20 EKG interpretation time: 04:43 Interpretation: afib hr [address] or t wave abnormalities qrs 85 qtc 383 Critical Care Time Critical Care Time: Critical Care Time: Yes Total Critical Care Time: 36 Attestation: This case had a high probability of a clinically significant, sudden, or life threatening deterioration of this patient's condition which required my full and direct attention, intervention and personal management. Discharge Plan Discharge Patient Disposition: Admitted As Inpatient Clinical Impression: Acute respiratory failure with hypoxia COPD (chronic obstructive pulmonary disease) Qualifiers: COPD type: unspecified COPD Qualified Code(s): J44.9 - Chronic obstructive pulmonary disease, unspecified Community acquired pneumonia Qualifiers: Laterality: unspecified laterality Qualified Code(s): J18.9 - Pneumonia, unspecified organism Condition: Stable Coding Level of Care Code ED Entry Level Civil Engineer for g Fwd Exam Comprehensive
--- NOTE | 2020-06-23 04:44 | PC.NURSE ---
patient's propofol was removed under a gordy kimbrough name in the pyxis due to the emergent need.
[2020-06-23 04:48] LABS: Basophils # 0.1 10^3/uL (0.0-0.1); Basophils % 0.4 %; Eosinophils # 0.2 10^3/uL (0.0-0.8); Eosinophils % 1.5 %; Hematocrit 44.4 % (42.0-52.0); Hemoglobin 13.6 g/dL (11.7-16.6); Mean Corpuscular HGB Conc 30.6 g/dL (30.0-36.0); Mean Corpuscular Hemoglobin 28.8 pg (28.0-34.0); Mean Corpuscular Volume 93.9 fL (80-94); Mean Platelet Volume 9.6 fL (7.4-10.4); Monocytes # 0.8 10^3/uL (0.2-0.9); Monocytes % 5.1 %; Neutrophils # 11.48 10^3/uL (1.8-7.7); Neutrophils % 73.4 %; Nucleated Red Blood Cells % 0 %; Platelet Count 276 10^3/cmm (130-400); Red Blood Count 4.73 10^6/uL (4.1-5.3); Red Cell Distribution Width 18.4 % (12.1-15.1); White Blood Count 15.6 10^3/uL (4.0-10.0)
[2020-06-23] MEDS: propofol 1,000 MG/100 ML INJ 13.1 MG IV (05:11)
[2020-06-23 05:14] LABS: Troponin(5th) Baseline 26 ng/L (0-15)
[2020-06-23 05:16] LABS: INR 1.11 (0.8-1.2)
[2020-06-23 05:18] LABS: Alanine Aminotransferase 16 U/L (0-41); Albumin Level 4.4 g/dL (3.5-5.2); Alkaline Phosphatase 189 IU/L (40-130); Blood Urea Nitrogen 13 mg/dL (8-23); Calcium 9.6 mg/dL (8.5-10.5); Carbon Dioxide 26 mmol/L (22-29); Chloride 100 mmol/L (98-107); Creatinine Clr Calc Pharmacy 109.5701; Globulin 2.7 g/dL (1.3-4.6); Glucose 101 mg/dL (65-115); NT Pro B Type Natriuretic Pept 745 pg/mL (0-125); Osmolality Calculated 284 mOsm/kg (285-295); Sodium 137 mmol/L (136-145); Total Bilirubin 0.5 mg/dL (0.15-1.2); Total Protein 7.1 g/dL (6.6-8.7)
--- NOTE | 2020-06-23 05:18 | PC.NURSE ---
patient on arrival was intubated with a 8.5 tube at 26 at lip, patient had 18 FR leblanc placed with urine return, pt had 18G IV in L AC on arrival, 18G IV placed in R wrist with blood draw, patient had 14FR OG tube placed after multiple attempts, propofol drip started, patient resting comfortably in bed, VS stable
[2020-06-23 05:22] LABS: Arterial Blood Gas Hematocrit 39.7 % (42-52); Base Excess ABG -5.4 mmol/L (-2.0-2.0); Blood Gas Allen Test Pos; Blood Gas Sample Site Radial, right; Blood Gas Sample Type Arterial; Blood Gas Tidal Volume 0.55; HCO3 ABG 24.9 mmol/L (22-26); HGB O2 Sat 95.4 % (95-100); Methemoglobin 0.6 % (0.4-1.5); Oxygen Device VENT
[2020-06-23 05:22] LABS: Alcohol Level < 10 mg/dL (0-10)
[2020-06-23 05:23] LABS: Anion Gap 16.7 (5-19); Aspartate Amino Transferase 27 U/L (0-40); Potassium 5.7 mmol/L (3.5-5.1)
[2020-06-23 05:34] LABS: SARS Covid-2 Antigen Negative (Negative)
[2020-06-23] MEDS: cefTRIAXone 1,000 MG in sodium chloride 0.9% (plus) 50 ML 100 MG IV (05:48)
[2020-06-23 06:03] LABS: Blood Urine 3+ (Negative); Glucose Urine UA Norm (Normal); Ketones Urine Negative (Negative); Nitrate Urine Negative (Negative); Protein Urine Neg (Negative); Urine Appearance Hazy (CLEAR); Urine Color Yellow (Yellow)
[2020-06-23 06:04] LABS: Add Urine Microscopic? YES; Bilirubin Urine Neg (Negative); Leukocyte Esterase Urine Trace (Negative); Squamous Epithelial Cell Urine 0-4 /hpf (0-5); Urobilinogen Urine Norm (Negative); WBC Urine 25-40 /hpf (0-5)
[2020-06-23 06:05] LABS: Add Urine Culture? Yes; Bacteria Urine 2+ /hpf; Renal Epithelial Cells Urine 6 /hpf
[2020-06-23] MEDS: azithromycin 500 MG in sodium chloride 0.9% 250 ML 250 MG IV (06:06)
[2020-06-23] MEDS: FUROsemide 10 mg/mL SDV 10mL 60 MG IVP ×2 (06:22→18:18)
[2020-06-23 06:49] LABS: ABG PH Result 7.27 (7.35-7.45); Arterial Blood Gas Hematocrit 35.6 % (42-52); Blood Gas Allen Test Pos; Blood Gas Sample Type Arterial; Carboxyhemoglobin 1.8 %THgb (0.4-20.1); HCO3 ABG 23.3 mmol/L (22-26); HGB O2 Sat 95.7 % (95-100); Ionized Calcium Level - ABG 1.2 mmol/L (1.1-1.4); Methemoglobin 0.5 % (0.4-1.5); Oxygen Saturation ABG 97.9; Potassium Level - ABG 5.1 mmol/L (3.5-5.0); Total Hemoglobin 11.6 g/dL (14-18)
[2020-06-23 06:50] LABS: Alveolar-Arterial Oxygen Gradi 43.4 mmHg (5-10); Blood Gas Sample Site Radial, right; Blood Gas Tidal Volume 0.55; Oxygen Device VENT
--- NOTE | 2020-06-23 07:01 | PC.NURSE ---
report received and care assumed from LIZET Dash
[2020-06-23 07:04] LABS: Lactate (Lactic Acid level) 0.7 mmol/L (0.5-2.2); Troponin 5 2HR 30.18 ng/L (0-15); Troponin 5 2HR Delta 4.18 ABS# (0-10)
[2020-06-23] MEDS: levofloxacin-dextrose 5 % 750 MG/150 ML PREMIX 100 MG IV (09:29)
[2020-06-23] MEDS: piperacillin-tazobactam 3.375 GM in sodium chloride 0.9% (plus) 50 ML IV ×2 (09:29→16:48)
[2020-06-23] MEDS: propofol 1,000 MG/100 ML INJ 49 MG IV (09:29)
[2020-06-23] MEDS: multivitamin therapeutic Tablet 1 TAB PO (09:40)
[2020-06-23] MEDS: thiamine 100 mg Tablet OG-TUBE (09:40)
[2020-06-23] MEDS: predniSONE 20 mg Tablet 40 MG OG-TUBE (09:40)
[2020-06-23] MEDS: famotidine 20 mg/2 mL INJ IVP ×2 (09:41→21:54)
[2020-06-23 09:42] LABS: Magnesium 2.1 mg/dL (1.7-2.3)
--- NOTE | 2020-06-23 10:14 | PM.HP ---
Providers/Chief Complaint Admitting Physician: Charmaine Fatima MD Primary Care Provider: LUIS EDUARDO BATRES Chief Complaint: Resp Distress History of Present Illness Damien Stringer is a 75 year old male who presented to the emergency department intubated secondary to respiratory distress at home. I am not able to obtain a history from him, therefore it is obtained from collateral sources as well as the emergency department record. Apparently he was short of breath and called emergency medical services. When they arrived they found him in respiratory distress with a saturation in the 70s. Patient wanted intubated and he was intubated and brought to the emergency department. At the emergency department he received some IV antibiotics, and Lasix. Previously he had received Solu-Medrol and some breathing treatments by EMS. Review of Systems General: Reports: ROS unobtainable due to mental status (Intubated and sedated) Medications/Allergies Home Medications Medication Instructions Recorded Confirmed Last Taken Type Eliquis 5 mg PO BID@07/20/19 06/14/20 06/13/20 History Spiriva Respimat 1 puff INHALATION BID 07/20/19 06/14/20 04/21/20 History fluticasone propionate [Flonase 2 spray INTRANASAL DAILY PRN 07/20/19 06/14/20 04/21/20 History Allergy Relief] isosorbide mononitrate 20 mg PO BID@07/20/19 06/14/20 06/13/20 History pravastatin [Pravachol] 40 mg PO DAILY@07/20/19 06/14/20 04/21/20 History tamsulosin [Flomax] 0.4 mg PO DAILY@07/20/19 06/14/20 06/13/20 History ferrous sulfate [iron] 325 mg PO DAILY@10/27/19 06/14/20 06/13/20 History mirtazapine 30 mg PO DAILY@10/27/19 06/14/20 04/21/20 History ropinirole 3 mg PO DAILY@10/27/19 06/14/20 04/21/20 History ascorbate calcium (vitamin C) 500 1 gm PO BID@18 tab 11/05/19 06/14/20 06/13/20 History mg tablet albuterol sulfate 2 inh INHALATION Q4H PRN #18 gm 12/02/19 06/14/20 04/21/20 Rx cilostazol 50 mg PO BID@06,18 12/02/19 06/14/20 06/13/20 History albuterol sulfate 2.5 mg INHALATION Q6H PRN 05/21/20 06/14/20 Unknown History buspirone 10 mg PO BID@06,18 06/02/20 06/14/20 06/13/20 History methenamine hippurate 1 gm PO BID@06,18 06/02/20 06/14/20 06/13/20 History pantoprazole [Protonix] 40 mg PO DAILY@06 06/02/20 06/14/20 06/13/20 History potassium gluconate 595 mg PO DAILY@06/02/20 06/14/20 06/13/20 History thiamine mononitrate (vit B1) 100 mg PO DAILY@06 06/02/20 06/14/20 06/13/20 History [Vitamin B-1 (mononitrate)] fluticasone propion-salmeterol 1 puff INHALATION BID.RESPIRATORY 06/04/20 06/14/20 Unknown Rx [Advair Diskus] #1 ea diltiazem HCl [DILT-XR] 360 mg PO DAILY@06 30 Days #30 cap 06/15/20 Unknown Rx furosemide 40 mg PO DAILY@0800 30 Days #30 tab 06/15/20 Unknown Rx lisinopril 10 mg PO DAILY 30 Days #30 tab 06/15/20 Unknown Rx metoprolol tartrate 12.5 mg PO Q12H 30 Days #30 tab 06/15/20 Unknown Rx potassium chloride [Klor-Con 10] 10 meq PO DAILY 30 Days #30 tab 06/15/20 Unknown Rx Allergies Allergy/AdvReac Type Severity Reaction Status Date / Time No Known Allergies Allergy Verified 06/14/20 10:15 PFSH Acute PFSH: Medical History Anxiety and depression Atrial fibrillation Bladder cancer Chronic anticoagulation Chronic cystitis COPD (chronic obstructive pulmonary disease) Enlarged prostate Genital lesion, male History of prostate cancer Hyperlipidemia Hypertension Iron deficiency anemia Left atrial enlargement 4.9 cm width Mitral regurgitation Peripheral vascular disease of extremity Renal calculi Surgical History H/O esophagogastroduodenoscopy H/O eye surgery H/O eye surgery detached retina left eye History of colonoscopy (~2004) History of laparotomy History of lithotripsy History of ureter stent Family History Mother , at age 94 Hypertension Heart disease Father , at age 72 Renal disease Heart disease Brother Heart disease Other CAD (coronary artery disease) Cancer Denies family history of Anesthesia complication Bleeding disorder Social History Smoking and tobacco status: former smoker Quit status (tobacco): has quit using tobacco Year quit tobacco: 2019 - 1PPD x 50 Years Second hand smoke exposure: Yes Smoking risk assessment/counseling performed?: No Alcohol intake: former Year of sobriety/quit date alcohol: 2019 Desire information about alcohol rehabilitation?: No Counseling given: No Adopted: No Caregiver/support person: No Lives independently: Yes Household members: none Marital status: Single Current occupational status: retired History of recent travel: No Current gender identity: Male Vitals/I&O/Wt Last Vital Signs Temp 97.7 F 06/23/20 04:32 Pulse 90 06/23/20 07:30 Resp 20 H 06/23/20 09:58 BP 102/68 06/23/20 07:30 Pulse Ox 97 06/23/20 07:30 06/22/20 06/23/20 06/23/20 22:59 06:59 14:59 Intake Total 101.075 / 101.075 299.842 / 299.842 Balance 101.075 / 101.075 299.842 / 299.842 Weight last 48 hrs Weight 108.862 kg Physical Exam Narrative: EXAM NARRATIVE: General exam is an intubated and sedated white male, in no distress HEENT: Left pupil round and reactive. Right with bilateral cataract. Oropharynx with endotracheal tube, as well as gastric tube. Neck is supple no lymphadenopathy or thyromegaly Cardiovascular irregular, irregular with no obvious murmur. Lungs diminished breath sounds bilaterally but no wheezing or crackles currently Abdomen is soft with positive bowel sounds. No obvious organomegaly demonstrates Mckeon catheter Extremities no cyanosis clubbing. 2+ edema noted bilaterally to the knees. Cap refill brisk less than 2 seconds. Skin without rash Neuro no obvious focal deficits Urinary Catheter Management^: Mckeon: Cath Placed During This Visit: yes Reason for Continuing Indwelling Catheter: Acute Urinary Retention or Obstruction Urinary Catheter Date of Insertion: 06/23/20 Urinary Catheter Time of Insertion: 05:17 Data : 06/23/20 04:00 06/23/20 04:00 Micro: Microbiology 06/23/20 06:40 Blood Culture - Preliminary Blood SPECIMEN COLLECTED 06/23/20 06:20 Blood Culture - Preliminary Blood SPECIMEN COLLECTED Other data: EKG demonstrates atrial fibrillation, normal axis, rate of 103, no acute changes. Chest x-ray visualized by me demonstrates bibasilar pneumonia right greater than left Recent echocardiogram May 2020 demonstrated an EF of 60% and moderate to severe mitral regurgitation Most recent ABG demonstrated a pH 7.27, PCO2 51, PO2 of 107. LFTs normal with exception of alkaline phosphatase of 189 Troponin XX 6, with repeat of 30 at 120 minutes BNP elevated at 745 Urinalysis with 5-10 reds and 25-40 whites Alcohol level less than 10 Rapid Covid negative, PCR pending A&P Assessment and plan (1) Acute respiratory failure with hypoxia: Intubated, and sedated Continue fentanyl for sedation. Change propofol to Precedex Repeat ABG at noon Reviewed ventilator settings. CMV, PEEP of 8, FiO2 100%, rate of 20, tidal volume 550 With associated hypercarbia and respiratory acidosis Status: Acute (2) COPD exacerbation: Schedule DuoNeb Budesonide twice daily Prednisone 40 mg daily Status: Acute (3) CHF exacerbation: Lasix 60 mg IV every 12 hours Mckeon catheter Status: Acute (4) Pneumonia: Past history of Pseudomonas Sputum culture Levaquin, Zosyn, vancomycin Check MRSA PCR Rapid Covid negative. PCR pending. On isolation until this returns. Status: Acute (5) Hyperkalemia: Recheck approximately noon by ABG Suspect this will be lower secondary to diuretic received Status: Acute (6) Elevated troponin: Type II Status: Acute (7) UTI (urinary tract infection): History of Enterococcus. Urine culture Zosyn started for pneumonia should cover Status: Acute Additional A&P Information Sepsis as delineated by bilateral pneumonia, leukocytosis, respiratory failure requiring mechanical ventilation. Not candidate for significant fluid resuscitation secondary to CHF History of moderate to severe mitral regurgitation. May be contributing to CHF. Diuresis History of alcoholism. Initiate thiamine, multivitamin. Ativan as needed withdrawal symptoms. Atrial fibrillation, on chronic anticoagulation with Eliquis. Continue metoprolol, Cardizem as tolerated by blood pressure for rate control Hypertension. Continue home meds Hyperlipidemia. Continue home meds Multiple other medical problems as outlined in past medical history Full code Lovenox will suffice for DVT prophylaxis Attestations Medical Necessity Statement*: Will need greater than 2 midnight stay for evaluation and treatment of respiratory failure requiring mechanical ventilation Time Spent in Patient Care: Greater than 35 minutes Critical Care Time: Critical Care Time (min): 45 Other Attestations: The high probability of a clinically significant, sudden or life threatening deterioration of the patient's [pulmonary, cardiac ] system(s) required my full and direct attention, intervention and personal management. The critical care time is as shown. This time is in addition to time spent performing any reported procedures but includes the following: [x] Data and vital sign review and interpretation [x] Patient assessment, examination and intervention [x] Documentation [x] Medication orders and management Coding Level of Care Code Acute Broadcast Program Director for Juan Delarosa Diagnoses Acute respiratory failure with hypoxia J96.01 COPD exacerbation J44.1 CHF exacerbation I50.9 Pneumonia J18.9 Hyperkalemia E87.5 Elevated troponin R77.8 UTI (urinary tract infection) N39.0
[2020-06-23] MEDS: dexmedetomidine 400 MCG in sodium chloride 0.9% (100 ml) 100 ML 5.7 MCG IV (10:30)
--- NOTE | 2020-06-23 10:34 | ECG_ITS ---
[facility] Test Date: 2020-06-23 Pat Name: Damien Stringer Department: Room: [facility]06 Gender: Male Residential Service Technician: : 1945 Requested By: Priya Grullon Order Number: [id number] Clarita MD: Duy Yip M.D. Measurements Intervals [place] Rate: 71 P: [place]: QRS: 47 QRSD: 88 T: 62 QT: 404 QTc: 440 Interpretive Statements ATRIAL FIBRILLATION LOW QRS VOLTAGE IN EXTREMITY LEADS [QRS DEFLECTION < 0.5 mV IN LIMB LEADS] ABNORMAL RHYTHM ECG Compared to ECG 06/23/2020 04:43:29 Low QRS voltage now present Electronically Signed On 06-23-2020 21:44:33 RACE AND SPORTS BOOK WRITER by Duy Yip M.D. [id number]
[2020-06-23 10:48] LABS: Troponin 5 6HR 32.39 ng/L (0-15); Troponin 5 6HR Delta 6.39 ng/L (0-12)
[2020-06-23] MEDS: ipratropium-albuterol 3 mL Neb INHALATION ×4 (11:11→23:38)
[2020-06-23] MEDS: dilTIAZem 30 mg Tablet OG-TUBE ×3 (11:12→21:53)
[2020-06-23 11:26] LABS: ABG PCO2 42.6 mmHg (35-45); ABG PH Result 7.35 (7.35-7.45); Arterial Blood Gas Hematocrit 34.9 % (42-52); Base Excess ABG -2.2 mmol/L (-2.0-2.0); Blood Gas Allen Test Pos; Blood Gas Operator Identificat CAK; Blood Gas Sample Site Radial, left; Blood Gas Sample Type Arterial; Blood Gas Tidal Volume 0.55; HCO3 ABG 23.4 mmol/L (22-26); Oxygen Device VENT
[2020-06-23] MEDS: propofol 1,000 MG/100 ML INJ 32.7 MG IV ×2 (12:21→16:01)
[2020-06-23 16:46] LABS: Coronavirus Test Green County Not Detected
[2020-06-23] MEDS: enoxaparin 100 mg/mL Syringe 110 MG SUBCUT (18:19)
--- NOTE | 2020-06-23 19:37 | PC.NURSE ---
Shift summary: Pt remained intubated and sedated throughout shift. No distress noted. He had fentanyl, propofol and Precedex titrated for sedation, see MAR. FIO2 at 35%. Lung sounds diminished. He has an OG clamped . Meds and fluids flush through it well. He is in a-fib, receiving Cardizem through OG. His rate jumps at repositioning. B/P stable. Slight fever of 99.8 F at end of shift. Urine output of 750ml. He just received 60 mg of Furosemide , he had a dose this am. He has no real skin issues, just some bruising on his arm and left hip.
[2020-06-23] MEDS: budesonide 0.5 mg/2 mL Neb INHALATION (20:07)
[2020-06-23] MEDS: propofol 1,000 MG/100 ML INJ 26.1 MG IV ×2 (20:12→23:56)
--- NOTE | 2020-06-23 20:39 | PC.NURSE ---
Tolerating sedation and vent at this time, eyes closed, supine 30 degrees call light within reach
--- NOTE | 2020-06-23 21:40 | ECG_ITS ---
[facility] Test Date: 2020-06-23 Pat Name: Damien Stringer Department: Room: [facility]06 Gender: Male Knee Bolter: : 1945 Requested By: Charmaine Fatima Order Number: [id number] Clarita MD: Marita Ansari M.D. Measurements Intervals [place] Rate: 84 P: [place]: QRS: 32 QRSD: 84 T: 60 QT: 367 QTc: 436 Interpretive Statements ATRIAL FIBRILLATION LOW QRS VOLTAGE IN EXTREMITY LEADS [QRS DEFLECTION < 0.5 mV IN LIMB LEADS] ABNORMAL RHYTHM ECG Compared to ECG 06/23/2020 10:38:12 No significant changes Electronically Signed On 06-24-2020 19:20:24 ACID PURIFICATION EQUIPMENT OPERATOR by Marita Ansari M.D. [id number]
[2020-06-23] MEDS: atorvastatin 40 mg Tablet 20 MG OG-TUBE (21:54)
[2020-06-23] MEDS: metoprolol tartrate 25 mg Tablet 12.5 MG PO (21:54)
[2020-06-23] MEDS: dexmedetomidine 400 MCG in sodium chloride 0.9% (100 ml) 100 ML 8.5 MCG IV (21:59)
[2020-06-24] VITALS (36 sets, daily range): BP systolic 124–152; BP diastolic 71–91; PULSE 78–180; RESP 11–24; TEMP 36.9–37.1; O2SAT 93–98
--- NOTE | 2020-06-24 00:17 | PC.NURSE ---
Dr. Fatima notified of 14 beat run of v-tach, HR in the 90's that jumps to 120's at times, awaiting orders at this time
--- NOTE | 2020-06-24 00:59 | PC.NURSE ---
new order Dr. Fatima called with T.O. to draw BMP phosphorus and mag now
[2020-06-24] MEDS: piperacillin-tazobactam 3.375 GM in sodium chloride 0.9% (plus) 50 ML IV ×3 (01:44→17:58)
[2020-06-24 01:52] LABS: Anion Gap 16.6 (5-19); Blood Urea Nitrogen 26 mg/dL (8-23); Calcium 9.1 mg/dL (8.5-10.5); Carbon Dioxide 23 mmol/L (22-29); Chloride 99 mmol/L (98-107); Glucose 153 mg/dL (65-115); Magnesium 2.1 mg/dL (1.7-2.3); Osmolality Calculated 286 mOsm/kg (285-295); Phosphorus 4.6 mg/dL (2.5-4.5); Potassium 4.6 mmol/L (3.5-5.1); Sodium 134 mmol/L (136-145)
[2020-06-24] MEDS: propofol 1,000 MG/100 ML INJ 26.1 MG IV ×2 (03:08→05:53)
[2020-06-24] MEDS: ipratropium-albuterol 3 mL Neb INHALATION ×4 (04:21→20:04)
[2020-06-24 04:47] LABS: Hemoglobin 11.3 g/dL (11.7-16.6); Lymphocytes # 0.5 10^3/uL (0.8-4.8); Lymphocytes % 6.9 %; Mean Corpuscular HGB Conc 31.4 g/dL (30.0-36.0); Mean Corpuscular Volume 92.5 fL (80-94); Mean Platelet Volume 9.6 fL (7.4-10.4); Monocytes # 0.3 10^3/uL (0.2-0.9); Monocytes % 4.5 %; Neutrophils # 5.86 10^3/uL (1.8-7.7); Neutrophils % 88.1 %; Nucleated Red Blood Cells % 0 %; Platelet Count 183 10^3/cmm (130-400); Red Blood Count 3.89 10^6/uL (4.1-5.3); Red Cell Distribution Width 17.8 % (12.1-15.1); White Blood Count 6.7 10^3/uL (4.0-10.0)
[2020-06-24 05:15] LABS: Alanine Aminotransferase 11 U/L (0-41); Albumin Level 3.2 g/dL (3.5-5.2); Alkaline Phosphatase 127 IU/L (40-130); Anion Gap 15.4 (5-19); Aspartate Amino Transferase 11 U/L (0-40); Blood Urea Nitrogen 25 mg/dL (8-23); Calcium 8.2 mg/dL (8.5-10.5); Carbon Dioxide 23 mmol/L (22-29); Chloride 101 mmol/L (98-107); Globulin 2.7 g/dL (1.3-4.6); Glucose 139 mg/dL (65-115); Magnesium 1.9 mg/dL (1.7-2.3); Osmolality Calculated 287 mOsm/kg (285-295); Potassium 4.4 mmol/L (3.5-5.1); Sodium 135 mmol/L (136-145); Total Bilirubin 0.2 mg/dL (0.15-1.2); Total Protein 5.9 g/dL (6.6-8.7)
[2020-06-24] MEDS: dilTIAZem 30 mg Tablet OG-TUBE (05:27)
[2020-06-24] MEDS: FUROsemide 10 mg/mL SDV 10mL 60 MG IVP ×2 (05:33→18:02)
[2020-06-24] MEDS: enoxaparin 100 mg/mL Syringe 110 MG SUBCUT ×2 (05:33→18:02)
[2020-06-24] MEDS: dexmedetomidine 400 MCG in sodium chloride 0.9% (100 ml) 100 ML 17 MCG IV (05:53)
[2020-06-24 05:55] LABS: ABG PCO2 40.9 mmHg (35-45); Arterial Blood Gas Hematocrit 38.8 % (42-52); Base Excess ABG 0.1 mmol/L (-2.0-2.0); Blood Gas Operator Identificat JB; Blood Gas Sample Site Brachial, right; Blood Gas Sample Type Arterial; Blood Gas Tidal Volume 0.55; Oxygen Device VENT; PO2 ABG 79.4 mmHg (80.0-100.0)
--- NOTE | 2020-06-24 07:00 | XR_ITS ---
WS: [id number] Portable AP semiupright chest, 06/24/2020 Clinical Data: follow up resp failure Comparison: Portable chest, 06/23/2020 Findings: The endotracheal tube and nasogastric tube remain in the same position. Bilateral basilar o pacities have not changed. The pulmonary vascularity is mildly increased. There is a right pleural ef fusion. The heart is enlarged. The aortic arch and descending aorta show calcification and tortuosity . Monitor leads are on the chest wall. XR/XR chest 1V portable [id number] Impression: 1. No change in endotracheal tube and nasogastric tube. 2. No change in cardiomegaly and basilar opacities.
[2020-06-24] MEDS: budesonide 0.5 mg/2 mL Neb INHALATION ×2 (07:28→20:04)
[2020-06-24] MEDS: thiamine 100 mg Tablet OG-TUBE (07:55)
[2020-06-24] MEDS: multivitamin therapeutic Tablet 1 TAB PO (07:55)
[2020-06-24] MEDS: predniSONE 20 mg Tablet 40 MG OG-TUBE (07:56)
[2020-06-24] MEDS: famotidine 20 mg/2 mL INJ IVP ×2 (07:57→21:31)
[2020-06-24] MEDS: levofloxacin-dextrose 5 % 750 MG/150 ML PREMIX 100 MG IV (07:58)
[2020-06-24] MEDS: metoprolol tartrate 25 mg Tablet 12.5 MG PO ×2 (08:00→21:31)
--- NOTE | 2020-06-24 09:30 | PC.NURSE ---
Pt's care assumed.
--- NOTE | 2020-06-24 09:32 | PC.RESP ---
extubated pt self extubated. pt on 3lpm va. nursing and dr macias at bedside
--- NOTE | 2020-06-24 09:33 | PC.CHAP ---
Pastoral Care Encounter/Spiritual Assessment Type of Contact [] Declined investigative reporter visit [] Patient/Family/Request visit [] Outpatient visit [] Follow-up visit [] Physician referral [] Code/Alert [] Routine visit [] Staff referral [] Actively dying [] Patient sleeping [] Family support [] [] Out of room [] Palliative care [] [] Receiving care in room [] Pre-surgical visit [] Trauma [] Long length of stay [x] ICU visit [] Other: Relational/Emotional Strength [] Patient feels connected with others/family/visitors/staff [] Distress [] Loneliness/isolation [] Abandonment Spirituality of Patient [] Person of Brandi [] Attends Mosque of their Brandi [] Believes in Prayer [] Reads Bible or Mandaeism materials [] There are Spiritual issues to be addressed Doll Repairer Interventions [x] Prayer [] Active listening [] Non-anxious presence [] Spiritual/emotional support [] Crisis/trauma care [] Spiritual counseling [] Bereavement support [] Provided bereavement packet [] Provided Bible/devotional materials [] Provided toy/stuffed animal, coloring book to patient or family member [] Provided Communion [] Anointing/Ashley [] Salvation [x] Completed spiritual assessment [] Other: Impact on Illness or Injury [] Angry [] Fearful [] Anxious [] Often cries [] Exhaustion [] Unable to work [] Unable to attend adventist [] Unable to walk/stand [] Unable to read [] Unable to drive [] Unable to eat/drink [] Unable to sleep [] Unable to be with family [] Patient intubated [] Other: Summary Time spent with patient
--- NOTE | 2020-06-24 09:49 | PM.PN ---
Documented by User: VONDA Mejia STDFER 06/24/20 10:08 Subjective Subjective: Interval history: Mr. Stringer is a 75 yo male with h/o alcoholism and COPD that presented for respiratory distress yesterday. Today he is still intubated, but his FiO2 settings have decreased from 100% to 35%. He still has a PEEP of 8 and a tidal volume of 550. He has diuresed 1850 ml since the beginning of his admission, but is still swollen due to the IV medications he has been receiving. The nurse reported that he has continued to diurese 300 ml of fluid in one hour this morning. Medications: Reviewed: Yes Vitals/I&O/Wt Last Vital Signs Temp 98.6 F 06/23/20 20:00 Pulse 90 06/24/20 07:30 Resp 16 06/24/20 07:32 BP 132/82 06/24/20 05:56 Pulse Ox 96 06/24/20 07:30 06/23/20 06/24/20 06/24/20 22:59 06:59 14:59 Intake Total 412.038 / 1104.380 491.210 / 1595.590 113.562 / 113.562 Output Total 750 / 750 1100 / 1850 Balance -337.962 / 354.380 -608.790 / -254.410 113.562 / 113.562 Weight last 48 hrs Weight 108.862 kg Physical Exam Narrative: EXAM NARRATIVE: General exam is an intubated and sedated white male, in no distress HEENT: Left pupil round and reactive. Right with bilateral cataract. Oropharynx with endotracheal tube, as well as gastric tube. Neck is supple no lymphadenopathy or thyromegaly Cardiovascular irregular, irregular with no obvious murmur. Lungs diminished breath sounds bilaterally but no wheezing or crackles currently Abdomen is soft with positive bowel sounds. No obvious organomegaly demonstrates Mckeon catheter Extremities no cyanosis clubbing. 2+ edema noted bilaterally to the knees. Cap refill brisk less than 2 seconds. Skin without rash Neuro no obvious focal deficits Const: COMMON NORMALS: negative for patient oriented x3 GENERAL APPEARANCE: in distress OTHER: Intubated HENMT: COMMON NORMALS: normocephalic and atraumatic HEAD & SCALP: normocephalic and atraumatic Eye: COMMON NORMALS: Equal, round and reactive pupils present and EOMs intact bilaterally PUPIL: Yes Equal, round and reactive pupils present Neck/C-Spine: COMMON NORMALS: full ROM and supple Chest: COMMONS NORMALS: normal inspection of the chest and normal palpation of entire chest wall Resp: COMMON NORMALS: No retractions and No use of accessory muscles OTHER: Intubated breath sounds bilaterally wheezing Cardio: COMMON NORMALS: regular rate, regular rhythm and No murmurs present (Cardio) RATE: regular rate RHYTHM: regular rhythm GI: COMMON NORMALS: Normal to inspection, nondistended, normoactive bowel sounds present, Soft to palpation, non-tender and no masses PALPATION: Yes Soft to palpation Extremity: COMMON NORMALS: normal to inspection and full ROM LEFT LOWER EXTREMITY: Yes hip joint Neuro: COMMON NORMALS: negative for patient oriented x3 Psych: COMMON NORMALS: negative for mental status grossly normal Skin: COMMON NORMALS: no rashes or lesions noted and no wounds GENERAL SKIN EXAM: no rashes or lesions noted WOUNDS: Yes surgical site (no hematoma palpable) Details: no odor Urinary Catheter Management^: Mckeon: Cath Placed During This Visit: yes Reason for Continuing Indwelling Catheter: Accurate Measurement of Urinary Output in Critically Ill Patients Urinary Catheter Date of Insertion: 06/23/20 Urinary Catheter Time of Insertion: 05:17 Data : 06/24/20 04:20 06/24/20 04:20 Micro: Microbiology 06/23/20 04:41 Urine Culture - Preliminary Urine,Clean Catch 06/23/20 06:40 Blood Culture - Preliminary Blood NEGATIVE TO DATE 06/23/20 06:20 Blood Culture - Preliminary Blood NEGATIVE TO DATE A&P Assessment and plan (1) Acute respiratory failure with hypoxia: Intubated, and sedated Continue fentanyl for sedation. Will wean off of Precedex today. Repeat ABG at noon Reviewed ventilator settings. CMV, PEEP of 8, FiO2 35%, rate of 16, tidal volume 550 With associated hypercarbia and respiratory acidosis Continue observation. Status: Acute (2) COPD exacerbation: Schedule DuoNeb Budesonide twice daily Prednisone 40 mg daily Status: Acute (3) CHF exacerbation: Lasix 60 mg IV every 12 hours Mckeon catheter Continue observation of diuresis. Will need to check urine output every 4 hours. Based on his output, Lasix will be adjusted as needed. Status: Acute (4) Pneumonia: Past history of Pseudomonas right pleural effusion on CXR today Sputum culture Give Levaquin, Zosyn, vancomycin Check MRSA PCR Rapid Covid negative. PCR negative. Remove isolation restrictions. Status: Acute (5) Hyperkalemia: Resolved; now 4.4. Status: Acute (6) Elevated troponin: Type II Status: Acute (7) UTI (urinary tract infection): History of Enterococcus. Urine culture Zosyn started for pneumonia should cover Status: Acute Additional A&P Information Sepsis as delineated by bilateral pneumonia, leukocytosis, respiratory failure requiring mechanical ventilation. Not candidate for significant fluid resuscitation secondary to CHF History of moderate to severe mitral regurgitation. May be contributing to CHF. Diuresis History of alcoholism. Initiate thiamine, multivitamin. Ativan as needed withdrawal symptoms. Atrial fibrillation, on chronic anticoagulation with Eliquis. Continue metoprolol, Cardizem as tolerated by blood pressure for rate control Hypertension. Continue home meds Hyperlipidemia. Continue home meds Multiple other medical problems as outlined in past medical history Full code Lovenox will suffice for DVT prophylaxis Coding Level of Care Code Acute Coal Inspector for g Fwd Exam Comprehensive Diagnoses Acute respiratory failure with hypoxia J96.01 COPD exacerbation J44.1 CHF exacerbation I50.9 Pneumonia J18.9 Hyperkalemia E87.5 Elevated troponin R77.8 UTI (urinary tract infection) N39.0 Documented by User: Joey Lawrence MD 06/24/20 10:28 Subjective Subjective: Interval history: Intubated and sedated. Physical Exam Narrative: EXAM NARRATIVE: General exam no apparent distress, intubated and sedated Cardiovascular irregular, irregular with accelerated rate Lungs without wheezing, diminished breath sounds bilaterally Abdomen is soft with positive bowel sounds Extremities 2+ edema Urinary Catheter Management^: Mckeon: Cath Placed During This Visit: no Data : 06/24/20 04:20 06/24/20 04:20 A&P Additional A&P Information Agree with above Patient was extubated today, self extubated during weaning. He is doing well. Will initiate a diet. BiPAP if needed. Continue antibiotics of vancomycin, Zosyn and Levaquin pending sputum culture and MRSA PCR Continue pulmonary toilet as well as prednisone 40 mg a day for COPD Continue Lasix 60 mg IV every 12 hours for CHF Attestations Medical Necessity Statement*: Needs continued hospitalization for IV antibiotics secondary to pneumonia Critical Care Time: Critical Care Time (min): 37 Other Attestations: The high probability of a clinically significant, sudden or life threatening deterioration of the patient's [pulmonary, cardiac, infectious secondary to sepsis pneumonia and UTI] system(s) required my full and direct attention, intervention and personal management. The critical care time is as shown. This time is in addition to time spent performing any reported procedures but includes the following: [x] Data and vital sign review and interpretation [x] Patient assessment, examination and intervention [x] Documentation [x] Medication orders and management Coding Level of Care Code Acute Coal Inspector for [facility] Fwd Exam Comprehensive Diagnoses Acute respiratory failure with hypoxia J96.01 COPD exacerbation J44.1 CHF exacerbation I50.9 Pneumonia J18.9 Hyperkalemia E87.5 Elevated troponin R77.8 UTI (urinary tract infection) N39.0
--- NOTE | 2020-06-24 09:50 | PC.NURSE ---
PT being weaned off sedation, sat straight up and pulled the ETT partially out. Finished removing it and OG. RT notified and at bedside. Propofol and Fentanyl stopped. Precedex to be weaned. Dr Lawrence notified. Pt now on 3lpm/NC
[2020-06-24] MEDS: dilTIAZem 30 mg Tablet 60 MG OG-TUBE (12:34)
--- NOTE | 2020-06-24 15:41 | PC.NURSE ---
Fentayl gtt waste: 37.5 ml physically wasted. Witnessed by Divina Gimenez RN. MAR flow sheet shows 24.5ml wasted
--- NOTE | 2020-06-24 15:41 | PC.NURSE ---
This nurse witnessed LIZET Taylor waste 37.5 ml of fentanly.
[2020-06-24] MEDS: dilTIAZem 60 mg Tablet 90 MG PO ×2 (18:00→23:18)
--- NOTE | 2020-06-24 18:24 | PC.NURSE ---
Per Pt.'s request Mary Dudley called and notified of pt's hospitalization and condition.
--- NOTE | 2020-06-24 18:28 | PC.NURSE ---
Shift summary: Pt self-extubated before 1000. Pt tolerating well. NOw on 3lpm/NC. Lung sounds coarse and diminished. Pt afebrile. He remains in A-fib, heart rate above 100 at times. Monitor has been recording the T waves as beats at times. Cardizem dosage increased. Pt has been very hungry, he ate 2 sandwiches and puddings immediately after lunch He has drank over 2000ml in flid. Pt cautioned about drinking so much, pt educated about CHF. Pt receiving Lasix BID. Urine output of 1400ml noted.
--- NOTE | 2020-06-24 19:29 | PC.NURSE ---
Report given to LIZET Timmons
[2020-06-24] MEDS: atorvastatin 40 mg Tablet 20 MG OG-TUBE (21:31)
[2020-06-25] VITALS (26 sets, daily range): BP systolic 130–151; BP diastolic 59–89; PULSE 75–94; RESP 14–94; TEMP 36.2–37.5; O2SAT 92–97
[2020-06-25] MEDS: ipratropium-albuterol 3 mL Neb INHALATION ×6 (00:02→20:41)
[2020-06-25] MEDS: piperacillin-tazobactam 3.375 GM in sodium chloride 0.9% (plus) 50 ML IV ×3 (01:28→17:47)
[2020-06-25] MEDS: dilTIAZem 60 mg Tablet 90 MG PO (05:11)
[2020-06-25] MEDS: enoxaparin 100 mg/mL Syringe 110 MG SUBCUT (05:12)
[2020-06-25] MEDS: FUROsemide 10 mg/mL SDV 10mL 60 MG IVP (05:13)
[2020-06-25 05:32] LABS: Basophils % 0.2 %; Hematocrit 37.8 % (42.0-52.0); Lymphocytes % 9.3 %; Mean Corpuscular HGB Conc 31.7 g/dL (30.0-36.0); Mean Corpuscular Hemoglobin 28.6 pg (28.0-34.0); Mean Corpuscular Volume 90.2 fL (80-94); Mean Platelet Volume 10.1 fL (7.4-10.4); Monocytes # 0.8 10^3/uL (0.2-0.9); Monocytes % 7.1 %; Neutrophils # 9.02 10^3/uL (1.8-7.7); Neutrophils % 83.1 %; Nucleated Red Blood Cells % 0 %; Platelet Count 231 10^3/cmm (130-400); Red Blood Count 4.19 10^6/uL (4.1-5.3); Red Cell Distribution Width 17.7 % (12.1-15.1); White Blood Count 10.9 10^3/uL (4.0-10.0)
[2020-06-25 06:03] LABS: Alanine Aminotransferase 15 U/L (0-41); Albumin Level 3.5 g/dL (3.5-5.2); Alkaline Phosphatase 122 IU/L (40-130); Anion Gap 13.2 (5-19); Aspartate Amino Transferase 15 U/L (0-40); Blood Urea Nitrogen 38 mg/dL (8-23); Calcium 9.5 mg/dL (8.5-10.5); Carbon Dioxide 30 mmol/L (22-29); Chloride 100 mmol/L (98-107); Globulin 2.7 g/dL (1.3-4.6); Glucose 115 mg/dL (65-115); Osmolality Calculated 298 mOsm/kg (285-295); Potassium 4.2 mmol/L (3.5-5.1); Sodium 139 mmol/L (136-145); Total Bilirubin 0.3 mg/dL (0.15-1.2); Total Protein 6.2 g/dL (6.6-8.7)
--- NOTE | 2020-06-25 07:18 | PC.NURSE ---
Report received from Sunni HINDS.
[2020-06-25] MEDS: budesonide 0.5 mg/2 mL Neb INHALATION ×2 (08:09→20:41)
[2020-06-25] MEDS: multivitamin therapeutic Tablet 1 TAB PO (09:06)
[2020-06-25] MEDS: predniSONE 20 mg Tablet 40 MG PO (09:06)
[2020-06-25] MEDS: pantoprazole DR 40 mg Tablet PO (09:06)
[2020-06-25] MEDS: levofloxacin-dextrose 5 % 750 MG/150 ML PREMIX 100 MG IV (09:06)
[2020-06-25] MEDS: thiamine 100 mg Tablet OG-TUBE (09:06)
[2020-06-25] MEDS: metoprolol tartrate 25 mg Tablet 12.5 MG PO (09:08)
--- NOTE | 2020-06-25 10:36 | P.PN_ITS ---
Documented by User: VONDA Mejia STDNT 06/25/20 11:02 Subjective Subjective: Interval history: 75 yo male presented 06-23-20 for acute respiratory failure with hypoxia. Today he says he has SOB but otherwise feels fine. Pt noted that he can see his ankles and that he has been urinating a lot. He denies headache, fever, NVD. Medications: Reviewed: Yes Vitals/I&O/Wt Last Vital Signs Temp 99.5 F 06/25/20 05:22 Pulse 88 06/25/20 08:14 Resp 17 06/25/20 08:12 BP 132/63 06/25/20 08:00 Pulse Ox 94 06/25/20 08:12 06/24/20 06/25/20 06/25/20 22:59 06:59 14:59 Intake Total 55.605 / 576.978 8648 / 2473.167 360 / 360 Output Total 5650 / 7450 1400 / 8850 3600 / 3600 Balance -5594.395 / -6976.833 600 / -6376.833 -3240 / -3240 Physical Exam Narrative: EXAM NARRATIVE: General exam is a white male, in no distress HEENT: Left pupil round and reactive. Right with bilateral cataract. Oropharynx with endotracheal tube, as well as gastric tube. Neck is supple no lymphadenopathy or thyromegaly Cardiovascular irregular, irregular with no obvious murmur. Lungs diminished breath sounds bilaterally but no wheezing or crackles currently Abdomen is soft with positive bowel sounds. No obvious organomegaly demonstrates Mckeon catheter Extremities no cyanosis clubbing. 1+ pitting edema. Much better than yesterday. Cap refill brisk less than 2 seconds. Skin without rash Neuro no obvious focal deficits Const: COMMON NORMALS: no acute distress and average body habitus; negative for patient oriented x3 GENERAL APPEARANCE: cooperative, comfortable and well kempt HENMT: COMMON NORMALS: normocephalic and atraumatic HEAD & SCALP: normocephalic and atraumatic Eye: COMMON NORMALS: Equal, round and reactive pupils present, EOMs intact bilaterally and no scleral icterus PUPIL: Yes Equal, round and reactive pupils present Neck/C-Spine: COMMON NORMALS: full ROM, supple and no JVD Chest: COMMONS NORMALS: normal inspection of the chest and normal palpation of entire chest wall Resp: COMMON NORMALS: No retractions, No use of accessory muscles and clear to auscultation bilaterally EFFORT & INSPECTION: Yes able to speak in complete sentences and Yes tachypneic AUSCULTATION: clear to auscultation bilaterally Cardio: COMMON NORMALS: no JVD, S1 normal heart sound present, S2 normal heart sound present, No gallops present (Cardio), No clicks present (Cardio), No murmurs present (Cardio), No rub (Cardio) and Peripheral pulses 2+ throughout HEART SOUNDS: S1 normal heart sound present and S2 normal heart sound present PERIPHERAL PULSES: Peripheral pulses 2+ throughout GI: COMMON NORMALS: Normal to inspection, nondistended, normoactive bowel sounds present, Soft to palpation, non-tender and no masses PALPATION: Yes Soft to palpation Extremity: COMMON NORMALS: normal to inspection and full ROM Neuro: COMMON NORMALS: negative for patient oriented x3 Psych: COMMON NORMALS: negative for mental status grossly normal APPEARANCE: Yes well kempt Skin: COMMON NORMALS: no rashes or lesions noted and no wounds GENERAL SKIN EXAM: no rashes or lesions noted Urinary Catheter Management^: Mckeon: Cath Placed During This Visit: yes Reason for Continuing Indwelling Catheter: Accurate Measurement of Urinary Output in Critically Ill Patients Urinary Catheter Date of Insertion: 06/23/20 Urinary Catheter Time of Insertion: 05:17 Data : 06/25/20 04:01 06/25/20 04:01 Micro: Microbiology 06/25/20 04:01 Blood Culture - Preliminary Blood SPECIMEN COLLECTED 06/25/20 04:01 Blood Culture - Preliminary Blood SPECIMEN COLLECTED 06/23/20 06:40 Blood Culture - Preliminary Blood 06/23/20 04:41 Urine Culture - Preliminary Urine,Clean Catch 06/23/20 06:20 Blood Culture - Preliminary Blood NEGATIVE TO DATE A&P Assessment and plan (1) Acute respiratory failure with hypoxia: Pt is doing better with O2 saturation of 94 on nasal cannula 2L/min. Status: Acute (2) COPD exacerbation: Schedule DuoNeb Budesonide twice daily Prednisone 40 mg daily Continue pulmonary toilet Status: Acute (3) CHF exacerbation: Pt has continued to lose fluid. His LE edema has gone down. Lasix 60 mg IV every 12 hours Mckeon catheter Continue observation of diuresis. Will need to check urine output every 4 hours. Based on his output, Lasix will be adjusted as needed. Status: Acute (4) Pneumonia: Past history of Pseudomonas right pleural effusion on CXR today Sputum culture Give Levaquin, Zosyn, vancomycin Check MRSA PCR Rapid Covid negative. PCR negative. Remove isolation restrictions. Status: Acute (5) Hyperkalemia: Resolved; now 4.2. Status: Acute (6) Elevated troponin: Type II Status: Acute (7) UTI (urinary tract infection): History of Enterococcus. Urine culture Zosyn started for pneumonia should cover Status: Acute Additional A&P Information Continue antibiotics of vancomycin, Zosyn and Levaquin pending sputum culture a nd MRSA PCR Waiting for blood culture results for sepsis Coding Level of Care Code Acute Recreation Aide for Chg Fwd Exam Comprehensive Diagnoses Acute respiratory failure with hypoxia J96.01 COPD exacerbation J44.1 CHF exacerbation I50.9 Pneumonia J18.9 Hyperkalemia E87.5 Elevated troponin R77.8 UTI (urinary tract infection) N39.0 Documented by User: Joey Lawrence MD 06/25/20 11:03 Subjective Subjective: Interval history: Agree with above. Patient reports he is doing much better. Medications: Reviewed: Yes Physical Exam Narrative: EXAM NARRATIVE: Agree with above, note that he is not intubated. General exam is no apparent distress Cardiovascular regular in rhythm without murmur Lungs a few crackles in the left lower lung base Abdomen is soft with positive bowel sounds Extremities 1+ edema Urinary Catheter Management^: Mckeon: Cath Placed During This Visit: no Data : 06/25/20 04:01 06/25/20 04:01 A&P Additional A&P Information Agree with above Overall improving quickly Continue prednisone Continue pulmonary toilet, including budesonide Continue to diurese with IV Lasix but change to 40 mg IV every 12 hours Continue IV antibiotics of Levaquin, Zosyn, vancomycin pending cultures and MRSA PCR Anticipate he can be discharged in several days.. Transfer out of ICU Attestations Medical Necessity Statement*: Needs continued hospitalization for IV antibioti cs secondary to pneumonia Coding Level of Care Code Acute Recreation Aide for Chg Fwd Exam Comprehensive Diagnoses Acute respiratory failure with hypoxia J96.01 COPD exacerbation J44.1 CHF exacerbation I50.9 Pneumonia J18.9 Hyperkalemia E87.5 Elevated troponin R77.8 UTI (urinary tract infection) N39.0
[2020-06-25] MEDS: dilTIAZem ER (24HR) 240 mg Capsule PO (10:45)
[2020-06-25] MEDS: dilTIAZem ER (24HR) 120 mg Capsule PO (10:45)
--- NOTE | 2020-06-25 15:22 | PC.NURSE ---
Attempted to call report nurse will call when available.
--- NOTE | 2020-06-25 16:00 | PC.NURSE ---
Report to Altagracia HINDS on CSU.
--- NOTE | 2020-06-25 17:31 | ECG_ITS ---
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
[2020-06-25] MEDS: FUROsemide 10 mg/mL SDV 4mL 40 MG IVP (17:48)
--- NOTE | 2020-06-25 18:21 | PC.NURSE ---
PATIENT HAD A 24 BEAT RUN OF VTACH. PATIENT WAS ASYMPTOMATIC AT THIS TIME. DR. SHI NOTIFIED. ORDERED A MAGNESIUM, POTASSIUM, EKG AND DC LEVAQUIN. NURSE REPORTED EKG AFTER IT WAS TAKEN. PATIENT ALSO HAVING RARE PVC'S, HE STATES THAT HE FEELS FUNNY WHEN THIS OCCURS. DR. SHI ORDERED METOPROLOL DOSE INCREASE TO 25MG.
[2020-06-25 18:47] LABS: Magnesium 2.3 mg/dL (1.7-2.3); Potassium 4.6 mmol/L (3.5-5.1)
[2020-06-25 20:31] LABS: Glucose Point of Care 180 mg/dL (70-110)
[2020-06-25] MEDS: apixaban 5 mg Tablet PO (21:14)
[2020-06-25] MEDS: metoprolol tartrate 25 mg Tablet PO (21:14)
[2020-06-25] MEDS: atorvastatin 40 mg Tablet 20 MG OG-TUBE (21:14)
[2020-06-25] MEDS: ropinirole 2 mg Tablet PO (21:15)
[2020-06-26] VITALS (18 sets, daily range): BP systolic 133–155; BP diastolic 76–83; PULSE 75–101; RESP 14–24; TEMP 36–36.6; O2SAT 92–96
[2020-06-26] MEDS: ipratropium-albuterol 3 mL Neb INHALATION ×7 (00:06→23:28)
[2020-06-26] MEDS: piperacillin-tazobactam 3.375 GM in sodium chloride 0.9% (plus) 50 ML IV ×3 (01:44→17:58)
[2020-06-26 05:09] LABS: Basophils % 0.1 %; Eosinophils % 0.3 %; Hemoglobin 12.5 g/dL (11.7-16.6); Lymphocytes # 1.8 10^3/uL (0.8-4.8); Mean Corpuscular HGB Conc 31.3 g/dL (30.0-36.0); Mean Corpuscular Hemoglobin 28.5 pg (28.0-34.0); Mean Corpuscular Volume 91.1 fL (80-94); Mean Platelet Volume 9.7 fL (7.4-10.4); Monocytes # 1.1 10^3/uL (0.2-0.9); Monocytes % 10.3 %; Neutrophils # 7.65 10^3/uL (1.8-7.7); Nucleated Red Blood Cells % 0 %; Platelet Count 266 10^3/cmm (130-400); Red Blood Count 4.39 10^6/uL (4.1-5.3); Red Cell Distribution Width 17.7 % (12.1-15.1); White Blood Count 10.6 10^3/uL (4.0-10.0)
[2020-06-26] MEDS: FUROsemide 10 mg/mL SDV 4mL 40 MG IVP (05:09)
[2020-06-26] MEDS: tamsulosin 0.4 mg Capsule PO (05:09)
[2020-06-26 05:37] LABS: Alanine Aminotransferase 38 U/L (0-41); Albumin Level 3.7 g/dL (3.5-5.2); Alkaline Phosphatase 126 IU/L (40-130); Anion Gap 11.8 (5-19); Aspartate Amino Transferase 38 U/L (0-40); Blood Urea Nitrogen 35 mg/dL (8-23); Carbon Dioxide 33 mmol/L (22-29); Chloride 99 mmol/L (98-107); Creatinine Clr Calc Pharmacy 109.5701; Globulin 2.9 g/dL (1.3-4.6); Glucose 105 mg/dL (65-115); Magnesium 2.3 mg/dL (1.7-2.3); Osmolality Calculated 298 mOsm/kg (285-295); Potassium 3.8 mmol/L (3.5-5.1); Sodium 140 mmol/L (136-145); Total Bilirubin 0.4 mg/dL (0.15-1.2); Total Protein 6.6 g/dL (6.6-8.7)
[2020-06-26] MEDS: budesonide 0.5 mg/2 mL Neb INHALATION ×2 (07:12→19:32)
[2020-06-26] MEDS: multivitamin therapeutic Tablet 1 TAB PO (08:04)
[2020-06-26] MEDS: atorvastatin 40 mg Tablet 20 MG OG-TUBE ×2 (08:04→20:19)
[2020-06-26] MEDS: metoprolol tartrate 25 mg Tablet PO ×2 (08:04→20:20)
[2020-06-26] MEDS: apixaban 5 mg Tablet PO ×2 (08:04→17:58)
[2020-06-26] MEDS: dilTIAZem ER (24HR) 240 mg Capsule PO (08:04)
[2020-06-26] MEDS: dilTIAZem ER (24HR) 120 mg Capsule PO (08:05)
[2020-06-26] MEDS: predniSONE 20 mg Tablet 40 MG PO (08:05)
[2020-06-26] MEDS: thiamine 100 mg Tablet OG-TUBE (08:05)
[2020-06-26] MEDS: pantoprazole DR 40 mg Tablet PO (08:05)
--- NOTE | 2020-06-26 09:24 | P.PN_ITS ---
Subjective Subjective: Interval history: Damien reports he is feeling better. Less swollen. No chest pain. Less short of breath. Still feels like he has some ankle edema. Medications: Reviewed: Yes Vitals/I&O/Wt Last Vital Signs Temp 96.8 F L 06/26/20 04:00 Pulse 90 06/26/20 07:18 Resp 17 06/26/20 07:12 BP 147/83 06/26/20 04:00 Pulse Ox 93 06/26/20 07:12 06/25/20 06/26/20 06/26/20 22:59 06:59 14:59 Intake Total 461 / 1261 600 / 1861 Output Total 1950 / 6200 2550 / 8750 Balance -1489 / -4939 -1950 / -6889 Physical Exam Narrative: EXAM NARRATIVE: General exam is no apparent distress Cardiovascular irregular, irregular rhythm without murmur Lungs diminished breath sounds bilaterally but no crackles today. No wheezing. Abdomen is soft with positive bowel sounds Extremities trace edema Urinary Catheter Management^: Mckeon: Cath Placed During This Visit: yes Reason for Continuing Indwelling Catheter: Accurate Measurement of Urinary Output in Critically Ill Patients Urinary Catheter Date of Insertion: 06/23/20 Urinary Catheter Time of Insertion: 05:17 Data : 06/26/20 04:36 06/26/20 04:36 Micro: Microbiology 06/25/20 04:01 Blood Culture - Preliminary Blood 06/25/20 04:01 Blood Culture - Preliminary Blood NEGATIVE TO DATE 06/23/20 04:41 Urine Culture - Final Urine,Clean Catch A&P Assessment and plan (1) Acute respiratory failure with hypoxia: He was extubated June 24 Now he is progressed to room air Status: Acute (2) COPD exacerbation: Schedule DuoNeb Budesonide twice daily Prednisone 40 mg daily Status: Acute (3) CHF exacerbation: Profound diuresis Discontinue IV Lasix Discontinue Mckeon Change to oral diuretic tomorrow, Bumex 1 mg daily Status: Acute (4) Pneumonia: Past history of Pseudomonas Sputum culture He on vancomycin and Zosyn. Levaquin discontinued secondary to frequent PVCs, occasional 3-4 beat runs of VT MRSA PCR pending Covid PCR negative Blood culture 1/4 bottles gram-positive cocci in pairs, likely contaminant Status: Acute (5) Hyperkalemia: Resolved Status: Acute (6) Elevated troponin: Type II Status: Acute (7) UTI (urinary tract infection): Urine culture small numbers of mixed saida Status: Acute Additional A&P Information Frequent PVCs. Metoprolol was increased. Still awaiting MRSA PCR. At this point enough clinical improvement to discontinue vancomycin Possible discharge tomorrow if still improved. Full code Apixaban will suffice for DVT prophylaxis Attestations Medical Necessity Statement*: Needs continued hospital stay for IV antibiotics secondary to pneumonia, diuresis from CHF with changing to oral medication. Coding Level of Care Code Acute It Consulting Manager for [facility] Fwd Diagnoses Acute respiratory failure with hypoxia J96.01 COPD exacerbation J44.1 CHF exacerbation I50.9 Pneumonia J18.9 Hyperkalemia E87.5 Elevated troponin R77.8 UTI (urinary tract infection) N39.0
--- NOTE | 2020-06-26 10:39 | DCPLANNER ---
IMM completed on 06/26/20 @ 8033. Copy of rights given to pt.
[2020-06-26] MEDS: ropinirole 2 mg Tablet PO (17:58)
[2020-06-27] VITALS (19 sets, daily range): BP systolic 122–158; BP diastolic 63–89; PULSE 76–105; RESP 15–24; TEMP 36–36.8; O2SAT 90–96
[2020-06-27] MEDS: piperacillin-tazobactam 3.375 GM in sodium chloride 0.9% (plus) 50 ML IV ×3 (01:04→18:23)
[2020-06-27] MEDS: ipratropium-albuterol 3 mL Neb INHALATION ×5 (04:02→19:34)
[2020-06-27 04:30] LABS: Basophils % 0.2 %; Eosinophils # 0.1 10^3/uL (0.0-0.8); Hematocrit 40.4 % (42.0-52.0); Hemoglobin 12.5 g/dL (11.7-16.6); Lymphocytes # 1.6 10^3/uL (0.8-4.8); Lymphocytes % 15.7 %; Mean Corpuscular HGB Conc 30.9 g/dL (30.0-36.0); Mean Corpuscular Hemoglobin 28.2 pg (28.0-34.0); Mean Corpuscular Volume 91.2 fL (80-94); Mean Platelet Volume 9.6 fL (7.4-10.4); Monocytes # 1.2 10^3/uL (0.2-0.9); Monocytes % 11.8 %; Neutrophils # 7.17 10^3/uL (1.8-7.7); Neutrophils % 70.6 %; Nucleated Red Blood Cells % 0 %; Platelet Count 285 10^3/cmm (130-400); Red Blood Count 4.43 10^6/uL (4.1-5.3); Red Cell Distribution Width 17.2 % (12.1-15.1); White Blood Count 10.2 10^3/uL (4.0-10.0)
[2020-06-27 04:56] LABS: Alanine Aminotransferase 41 U/L (0-41); Albumin Level 3.6 g/dL (3.5-5.2); Alkaline Phosphatase 129 IU/L (40-130); Anion Gap 9.7 (5-19); Aspartate Amino Transferase 25 U/L (0-40); Blood Urea Nitrogen 36 mg/dL (8-23); Calcium 9.7 mg/dL (8.5-10.5); Carbon Dioxide 33 mmol/L (22-29); Chloride 101 mmol/L (98-107); Creatinine Clr Calc Pharmacy 109.5701; Globulin 2.9 g/dL (1.3-4.6); Glucose 97 mg/dL (65-115); Osmolality Calculated 298 mOsm/kg (285-295); Potassium 3.7 mmol/L (3.5-5.1); Sodium 140 mmol/L (136-145); Total Bilirubin 0.3 mg/dL (0.15-1.2); Total Protein 6.5 g/dL (6.6-8.7)
[2020-06-27] MEDS: tamsulosin 0.4 mg Capsule PO (05:06)
[2020-06-27] MEDS: budesonide 0.5 mg/2 mL Neb INHALATION ×2 (08:19→19:34)
[2020-06-27] MEDS: apixaban 5 mg Tablet PO ×2 (09:32→18:15)
[2020-06-27] MEDS: pantoprazole DR 40 mg Tablet PO (09:33)
[2020-06-27] MEDS: multivitamin therapeutic Tablet 1 TAB PO (09:33)
[2020-06-27] MEDS: bumetanide 1 mg Tablet PO (09:33)
[2020-06-27] MEDS: predniSONE 20 mg Tablet 40 MG PO (09:33)
[2020-06-27] MEDS: dilTIAZem ER (24HR) 240 mg Capsule PO (09:33)
[2020-06-27] MEDS: thiamine 100 mg Tablet OG-TUBE (09:34)
[2020-06-27] MEDS: dilTIAZem ER (24HR) 120 mg Capsule PO (09:34)
[2020-06-27] MEDS: metoprolol tartrate 25 mg Tablet PO ×2 (09:40→20:44)
--- NOTE | 2020-06-27 12:21 | XRR_ITS ---
PROCEDURE INFORMATION: Exam: XR Chest, 1 View Exam date and time: 06/27/2020 2:01 PM Age: 75 years old Clinical indication: Shortness of breath; Additional info: F/up infiltrates-edema vs pneumonia TECHNIQUE: Imaging protocol: XR of the chest Views: 1 view. COMPARISON: CR XR chest 1V portable [id number] 06/24/2020 5:11 AM FINDINGS: Tubes, catheters and devices: Interval removal of previously visualized endotracheal and feeding tubes. Lungs: COPD, interstitial prominence, and asymmetric basilar airspace disease. Pleural space: Right pleural effusion. Apical pleural thickening. Heart/Mediastinum: No cardiomegaly. Vasculature: Calcification of the thoracic aorta. Bones/joints: Osteopenia and degenerative change. Left rotator cuff repair. XR/XR chest 1V portable [id number] IMPRESSION: 1. COPD, interstitial prominence, and asymmetric basilar airspace disease. 2. Right pleural effusion.
--- NOTE | 2020-06-27 13:30 | PM.PN ---
Subjective Subjective: Interval history: Saturating 91 to 95% on room air today. Reports no other changes. Blood culture from 114 also reported as coag negative staph 1 out of 4 bottles. No fever. Medications: Reviewed: Yes Vitals/I&O/Wt Last Vital Signs Temp 97.9 F 06/27/20 12:00 Pulse 88 06/27/20 12:00 Resp 22 H 06/27/20 12:00 BP 122/67 06/27/20 12:00 Pulse Ox 91 06/27/20 12:00 06/26/20 06/27/20 06/27/20 22:59 06:59 14:59 Intake Total 1710 / 2240 110 / 2350 360 / 360 Output Total 520 / 520 Balance 1190 / 1720 110 / 1830 360 / 360 Physical Exam Narrative: EXAM NARRATIVE: GEN: Awake, alert and oriented, no acute distress CVS: S1S2 N RS: CTA B/L Abd: Soft, nt/nd , bs+ FOSTER CARE SOCIAL WORKER: no focal neuro deficits Urinary Catheter Management^: Mckeon: Cath Placed During This Visit: yes, but has since been removed by the nurse Reason for Continuing Indwelling Catheter: Accurate Measurement of Urinary Output in Critically Ill Patients Urinary Catheter Date of Insertion: 06/23/20 Urinary Catheter Time of Insertion: 05:17 Date Urinary Catheter Removed: 06/26/20 Time Urinary Catheter Discontinued: 12:30 Data : 06/27/20 03:52 06/27/20 03:52 Micro: Microbiology 06/25/20 04:01 Blood Culture - Preliminary Blood Coagulase negativ staphylococc 06/23/20 06:40 Blood Culture - Preliminary Blood Coagulase negativ staphylococc A&P Assessment and plan (1) Acute respiratory failure with hypoxia: He was extubated June 24 Now he is progressed to room air Likely to be multifactorial as a result of COPD exacerbation, possible pneumonia and CHF etc. patient. Status: Acute (2) COPD exacerbation: Schedule DuoNeb Budesonide twice daily Prednisone 40 mg daily Status: Acute (3) CHF exacerbation: Profound diuresis Continue Bumex 1 mg daily Repeat chest x-ray today Status: Acute (4) Pneumonia: Past history of Pseudomonas Sputum culture He on vancomycin and Zosyn. Levaquin discontinued secondary to frequent PVCs, occasional 3-4 beat runs of VT MRSA PCR negative, vancomycin has been discontinued Covid PCR negative Blood culture 1/4 bottles gram-positive cocci in pairs from June 23 and June 25, likely contaminant Status: Acute (5) Hyperkalemia: Resolved Status: Acute (6) Elevated troponin: Type II Status: Acute (7) UTI (urinary tract infection): Urine culture small numbers of mixed saida Status: Acute Additional A&P Information Frequent PVCs. Metoprolol was increased. Complete 5 days course of IV antibiotics while inpatient given Pseudomonas on prior cultures, repeat chest x-ray and procalcitonin today, likely discharge tomorrow. Full code Apixaban will suffice for DVT prophylaxis Attestations Medical Necessity Statement*: Need for IV antibiotics, repeat chest x-ray Coding Level of Care Code Acute Lead Worker Of Housekeeping And Laundry for [facility] Fwd Diagnoses Acute respiratory failure with hypoxia J96.01 COPD exacerbation J44.1 CHF exacerbation I50.9 Pneumonia J18.9 Hyperkalemia E87.5 Elevated troponin R77.8 UTI (urinary tract infection) N39.0
[2020-06-27 14:16] LABS: Procalcitonin 0.16 ng/mL (0-0.5)
[2020-06-27] MEDS: ropinirole 2 mg Tablet PO (18:15)
[2020-06-27] MEDS: atorvastatin 40 mg Tablet 20 MG OG-TUBE (20:44)
[2020-06-28] VITALS (15 sets, daily range): BP systolic 125–137; BP diastolic 58–78; PULSE 77–99; RESP 14–28; TEMP 35.6–36.9; O2SAT 92–96
[2020-06-28] MEDS: ipratropium-albuterol 3 mL Neb INHALATION ×4 (00:07→12:26)
[2020-06-28] MEDS: piperacillin-tazobactam 3.375 GM in sodium chloride 0.9% (plus) 50 ML IV ×2 (01:23→08:30)
[2020-06-28] MEDS: tamsulosin 0.4 mg Capsule PO (05:08)
[2020-06-28] MEDS: budesonide 0.5 mg/2 mL Neb INHALATION (08:18)
[2020-06-28] MEDS: multivitamin therapeutic Tablet 1 TAB PO (08:24)
[2020-06-28] MEDS: dilTIAZem ER (24HR) 240 mg Capsule PO (08:24)
[2020-06-28] MEDS: thiamine 100 mg Tablet OG-TUBE (08:25)
[2020-06-28] MEDS: pantoprazole DR 40 mg Tablet PO (08:26)
[2020-06-28] MEDS: metoprolol tartrate 25 mg Tablet PO (08:26)
[2020-06-28] MEDS: apixaban 5 mg Tablet PO (08:26)
[2020-06-28] MEDS: dilTIAZem ER (24HR) 120 mg Capsule PO (08:26)
[2020-06-28] MEDS: bumetanide 1 mg Tablet PO (08:27)
[2020-06-28] MEDS: predniSONE 20 mg Tablet 40 MG PO (08:27)
--- NOTE | 2020-06-28 08:55 | PC.SOCIAL ---
IM follow up initialed explained and copy provided. Pt has no questions.
--- NOTE | 2020-06-28 10:07 | PM.DCS ---
Discharge Providers Date of Admission: 06/23/20 06:14 Date of Discharge: June 28, 2020 Attending Provider at Admission: Charmaine Fatima MD Attending Provider at Discharge: Radha Burton MD Primary Care Provider: Melody Bhatti Diagnoses at Discharge Discharge Diagnosis (1) Acute respiratory failure with hypoxia: Status: Acute (2) COPD exacerbation: Status: Acute (3) CHF exacerbation: Status: Acute (4) Pneumonia: Status: Acute (5) Hyperkalemia: Status: Acute (6) Elevated troponin: Status: Acute (7) UTI (urinary tract infection): Status: Acute Reason for Visit Reason for Visit: Resp Distress Hospital Course Hospital Course 75 year old male who has history of nonoxygen dependent COPD, restless leg syndrome, paroxysmal A. fib, chronic anticoagulation on Eliquis, preserved ejection fraction heart failure, peripheral vascular disease, angiogram 01/29 showed luminal irregularities, and recurrent admissions to the hospital for A. fib with RVR, CHF, COPD exacerbations, sleep apnea advised CPAP titration study in the past presented to the emergency room on June 23, 2019 with respiratory distress. Oxygen saturation noted to be 70% by EMS upon arrival and he was intubated and brought to the emergency room.EKG demonstrates atrial fibrillation, normal axis, rate of 103, no acute changes. Chest x-ray visualized by me demonstrates bibasilar pneumonia right greater than left. Recent echocardiogram May 2020 demonstrated an EF of 60% and moderate to severe mitral regurgitation. Most recent ABG demonstrated a pH 7.27, PCO2 51, PO2 of 107.Troponin XX 6, with repeat of 30 at 120 minutes. BNP elevated at 745. Rapid Covid antigen and PCR negative. He self extubated on June 24. He was treated with IV diuresis initially with Lasix 60 mg IV every 12, changed over to Bumex 1 mg daily on which patient is currently doing well. For bilateral pneumonia he was treated with Zosyn and vancomycin, the latter was discontinued when MRSA PCR returned negative. 5 days on Zosyn were completed as past sputum cultures have shown the presence of Pseudomonas. He is additionally being discharged on an additional 5 days of levofloxacin. Referral is provided to pulmonary as an outpatient for recurrent pneumonias and frequent COPD exacerbations. Incidentally blood culture was noted to be positive 1 out of 4 bottles, likely to be contaminants. Patient remained afebrile during the course of admission and hemodynamically stable. Troponin mildly elevated, likely type II [place]. Being discharged today in improved condition. Home health has been arranged on discharge. Follow-up with cardiology and pulmonary services. 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 Urinary Catheter Management^: Mckeon: Cath Placed During This Visit: yes, but has since been removed by the nurse Reason for Continuing Indwelling Catheter: Accurate Measurement of Urinary Output in Critically Ill Patients Urinary Catheter Date of Insertion: 06/23/20 Urinary Catheter Time of Insertion: 05:17 Date Urinary Catheter Removed: 06/26/20 Time Urinary Catheter Discontinued: 12:30 Discharge Data Data Completed and Pending: Completed Studies During Hospitalization Category Date Time Status XR chest 1V rebecca ble [id number] Routine Exams 06/24/20 07:00 Completed XR chest 1V rebecca ble [id number] Routine Exams 06/27/20 12:21 Completed XR chest 1V rebecca ble [id number] Urgent Exams 06/23/20 04:33 Completed Pending at discharge Category Date Time Status Arterial Blood Ga s W/Coox Stat Lab 06/23/20 05:05 Results Blood Culture AM LABS Lab 06/25/20 04:01 Results Blood Culture Sta t Lab 06/23/20 06:20 Results Sputum Culture an d Gram Stain Routi ne Lab 06/23/20 08:44 Uncollected Labs from last 24 hours 06/27/20 03:52 Procalcitonin 0.16 Vitals: Last Vital Signs Temp 97.9 F 06/28/20 07:17 Pulse 95 06/28/20 08:25 Resp 18 06/28/20 08:19 BP 135/78 06/28/20 07:17 Pulse Ox 95 06/28/20 09:07 Discharge Plan Discharge Patient Disposition: Home Health Service Condition: Stable Prescriptions: New bumetanide 1 mg Tablet 1 mg PO DAILY 30 Days Qty: 30 RF: 0 prednisone 10 mg tablets,dose pack See Rx Instructions .ROUTE .COMPLEX Qty: 21 RF: 0 Continued ascorbate calcium (vitamin C) 500 mg tablet 1 gm PO BID@ RF: 0 albuterol sulfate 2.5 mg /3 mL (0.083 %) solution for nebulization 2.5 mg inhalation Q6H PRN (Reason: Shortness Of Breath) RF: 0 ropinirole 3 mg Tablet 3 mg PO DAILY@19 RF: 0 mirtazapine 30 mg Tablet 30 mg PO DAILY@18 RF: 0 ferrous sulfate [iron] 325 mg (65 mg iron) Tablet 325 mg PO DAILY@06 RF: 0 cilostazol 50 mg tablet 50 mg PO BID@ RF: 0 methenamine hippurate 1 gram tablet 1 gm PO BID@ RF: 0 pantoprazole [Protonix] 40 mg tablet,delayed release (DR/EC) 40 mg PO DAILY@ RF: 0 buspirone 10 mg tablet 10 mg PO BID@ RF: 0 thiamine mononitrate (vit B1) [Vitamin B-1 (mononitrate)] 100 mg tablet 100 mg PO DAILY@ RF: 0 fluticasone propion-salmeterol [Advair Diskus] 250-50 mcg/dose Blister With Device 1 puff inhalation BID.RESPIRATORY Qty: 1 RF: 0 diltiazem HCl [DILT-XR] 180 mg Capsule,Ext.Rel 24h Degradable 360 mg PO DAILY@06 30 Days Qty: 30 RF: 0 isosorbide mononitrate 20 mg tablet 20 mg PO BID@ RF: 0 pravastatin [Pravachol] 40 mg tablet 40 mg PO DAILY@ RF: 0 tamsulosin [Flomax] 0.4 mg capsule 0.4 mg PO DAILY@06 RF: 0 fluticasone propionate [Flonase Allergy Relief] 50 mcg/actuation spray,suspension 1 spray INTRANASAL BID PRN (Reason: Allergy Symptoms) RF: 0 Spiriva Respimat 2.5 mcg/actuation mist 1 puff INHALATION BID RF: 0 Eliquis 5 mg tablet 5 mg PO BID@ RF: 0 Hold Instructions: Resume on 04/27/20. 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 [employer] [Primary Care Provider] - Ankur Keene MD [Physician] - 2 weeks (hospital discharge follow up, recurrent B/L pneumonia, COPD, sleep apnea) Dionne Stark MD [Physician] - 2 weeks (hospital discharge follow up, recurrent admissions for A fib with RVR, CHF ) Discharge Diet: Cardiac Discharge Activity: Increase activity as tolerated Discharge Attestations Time Spent in Discharge Care*: greater than 30 min Status at Discharge: Cognitive status at discharge: cognitively intact, Behavioral status at discharge: cooperative, Quality Metrics Clinical Quality Measures During this hospital stay, did patient experience: None Coding Level of Care Code Acute Block Mason for [facility] Fwd Diagnoses Acute respiratory failure with hypoxia J96.01 COPD exacerbation J44.1 CHF exacerbation I50.9 Pneumonia J18.9 Hyperkalemia E87.5 Elevated troponin R77.8 UTI (urinary tract infection) N39.0
--- NOTE | 2020-06-28 12:54 | PM.DCS ---
Discharge Providers Date of Admission: 06/23/20 06:14 Date of Discharge: June 28, 2020 Attending Provider at Admission: Charmaine Fatima MD Attending Provider at Discharge: Radha Burton MD Primary Care Provider: Melody Bhatti Diagnoses at Discharge Discharge Diagnosis (1) Acute respiratory failure with hypoxia: Status: Acute (2) COPD exacerbation: Status: Acute (3) CHF exacerbation: Status: Acute Qualifiers: Heart failure type: diastolic Qualified Code(s): I50.33 - Acute on chronic diastolic (congestive) heart failure (4) Pneumonia: Status: Acute (5) Hyperkalemia: Status: Resolved (6) Elevated troponin: Status: Resolved (7) UTI (urinary tract infection): Status: Resolved Reason for Visit Reason for Visit: Resp Distress Hospital Course Hospital Course 75 year old male who has history of nonoxygen dependent COPD, restless leg syndrome, paroxysmal A. fib, chronic anticoagulation on Eliquis, preserved ejection fraction heart failure, peripheral vascular disease, angiogram 01/29 showed luminal irregularities, and recurrent admissions to the hospital for A. fib with RVR, CHF, COPD exacerbations, sleep apnea advised CPAP titration study in the past presented to the emergency room on June 23, 2019 with respiratory distress. Oxygen saturation noted to be 70% by EMS upon arrival and he was intubated and brought to the emergency room.EKG demonstrated atrial fibrillation, normal axis, rate of 103, no acute changes. Chest x-ray visualized by dc demonstrates bibasilar pneumonia right greater than left. Recent echocardiogram May 2020 demonstrated an EF of 60% and moderate to severe mitral regurgitation. Most recent ABG demonstrated a pH 7.27, PCO2 51, PO2 of 107.without significant delta. BNP elevated at 745. Rapid Covid antigen and PCR negative. He self extubated on June 24. He was treated with IV diuresis initially with Lasix 60 mg IV every 12, changed over to Bumex 1 mg daily on which patient is currently doing well. For bilateral pneumonia he was treated with Zosyn and vancomycin, the latter was discontinued when MRSA PCR returned negative. 5 days on Zosyn were completed as past sputum cultures have shown the presence of Pseudomonas. He is additionally being discharged on an additional 5 days of levofloxacin. Referral is provided to pulmonary as an outpatient for recurrent pneumonias and frequent COPD exacerbations. Incidentally blood culture was noted to be positive 1 out of 4 bottles, likely to be contaminants. Patient remained afebrile during the course of admission and hemodynamically stable. Troponin mildly elevated, likely type II [place]. Being discharged today in improved condition. Home health has been arranged on discharge. Follow-up with cardiology and pulmonary services. 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 Urinary Catheter Management^: Mckeon: Cath Placed During This Visit: yes, but has since been removed by the nurse Reason for Continuing Indwelling Catheter: Accurate Measurement of Urinary Output in Critically Ill Patients Urinary Catheter Date of Insertion: 06/23/20 Urinary Catheter Time of Insertion: 05:17 Date Urinary Catheter Removed: 06/26/20 Time Urinary Catheter Discontinued: 12:30 Discharge Data Data Completed and Pending: Completed Studies During Hospitalization Category Date Time Status XR chest 1V rebecca ble [id number] Routine Exams 06/24/20 07:00 Completed XR chest 1V rebecca ble [id number] Routine Exams 06/27/20 12:21 Completed XR chest 1V rebecca ble [id number] Urgent Exams 06/23/20 04:33 Completed Pending at discharge Category Date Time Status Arterial Blood Ga s W/Coox Stat Lab 06/23/20 05:05 Results Vitals: Last Vital Signs Temp 98.5 F 06/28/20 13:32 Pulse 87 06/28/20 14:00 Resp 14 06/28/20 13:32 BP 137/58 06/28/20 13:32 Pulse Ox 95 06/28/20 13:32 Discharge Plan Discharge Patient Disposition: Home Health Service Condition: Stable Prescriptions: New bumetanide 1 mg Tablet 1 mg PO DAILY 30 Days Qty: 30 RF: 0 prednisone 10 mg tablets,dose pack See Rx Instructions .ROUTE .COMPLEX Qty: 21 RF: 0 Continued ascorbate calcium (vitamin C) 500 mg tablet 1 gm PO BID@ RF: 0 albuterol sulfate 2.5 mg /3 mL (0.083 %) solution for nebulization 2.5 mg inhalation Q6H PRN (Reason: Shortness Of Breath) RF: 0 ropinirole 3 mg Tablet 3 mg PO DAILY@19 RF: 0 mirtazapine 30 mg Tablet 30 mg PO DAILY@18 RF: 0 ferrous sulfate [iron] 325 mg (65 mg iron) Tablet 325 mg PO DAILY@06 RF: 0 cilostazol 50 mg tablet 50 mg PO BID@ RF: 0 methenamine hippurate 1 gram tablet 1 gm PO BID@ RF: 0 pantoprazole [Protonix] 40 mg tablet,delayed release (DR/EC) 40 mg PO DAILY@06 RF: 0 buspirone 10 mg tablet 10 mg PO BID@ RF: 0 thiamine mononitrate (vit B1) [Vitamin B-1 (mononitrate)] 100 mg tablet 100 mg PO DAILY@ RF: 0 fluticasone propion-salmeterol [Advair Diskus] 250-50 mcg/dose Blister With Device 1 puff inhalation BID.RESPIRATORY Qty: 1 RF: 0 diltiazem HCl [DILT-XR] 180 mg Capsule,Ext.Rel 24h Degradable 360 mg PO DAILY@06 30 Days Qty: 30 RF: 0 isosorbide mononitrate 20 mg tablet 20 mg PO BID@ RF: 0 pravastatin [Pravachol] 40 mg tablet 40 mg PO DAILY@ RF: 0 tamsulosin [Flomax] 0.4 mg capsule 0.4 mg PO DAILY@06 RF: 0 fluticasone propionate [Flonase Allergy Relief] 50 mcg/actuation spray,suspension 1 spray INTRANASAL BID PRN (Reason: Allergy Symptoms) RF: 0 Spiriva Respimat 2.5 mcg/actuation mist 1 puff INHALATION BID RF: 0 Eliquis 5 mg tablet 5 mg PO BID@ RF: 0 Hold Instructions: Resume on 04/27/20. albuterol sulfate 90 mcg/actuation HFA aerosol inhaler 2 inh INHALATION BID PRN (Reason: shortness of breath or wheezing) RF: 0 Discontinued potassium gluconate 595 mg (99 mg) Tablet 595 mg PO DAILY@06 RF: 0 furosemide 40 mg tablet 40 mg PO DAILY@0800 30 Days Qty: 30 RF: 0 lisinopril 10 mg Tablet 10 mg PO DAILY 30 Days Qty: 30 RF: 0 metoprolol tartrate 25 mg Tablet 12.5 mg PO Q12H 30 Days Qty: 30 RF: 0 sulfamethoxazole-trimethoprim 800-160 mg Tablet 1 tab PO BID RF: 0 No Action metoprolol tartrate 25 mg tablet 50 mg PO Q12H RF: 0 Discharge Orders: Discharge Order (Routine); Ordered 06/28/20 Ordered By: Radha Burton Referrals: Melody Bhatti FNP [Primary Care Provider] - 4-7 days ([facility] will be contacting you tomorrow to schedule a follow up appointment with ANT Wilkerson to be seen in 4 to 7 days. If you have not heard from them by Monday afternoon, please call to schedule an appointment. Thank you.) Dionne Stark MD [Physician] - 2 weeks ([facility] will be contacting you tomorrow to schedule a follow up appointment with Dr. Stark to be seen in 2 weeks. If you have not heard from them by Monday afternoon, please call to schedule an appointment. Thank you.) Ankur Keene MD [Physician] - 2 weeks ([facility] will be contacting you tomorrow to schedule a follow up appointment with Dr. Keene to be seen in 2 weeks. If you have not heard from them by Monday afternoon, please call to schedule an appointment. Thank you) Discharge Diet: Cardiac Discharge Activity: Increase activity as tolerated Patient Instructions: Bumetanide (By mouth), Prednisone (By mouth), Urinary Tract Infection in Men (DC), CHF Stoplight, COPD Stoplight, Pneumonia Stoplight Discharge Attestations Time Spent in Discharge Care*: greater than 30 min Status at Discharge: Cognitive status at discharge: cognitively intact, Behavioral status at discharge: cooperative, Quality Metrics Clinical Quality Measures During this hospital stay, did patient experience: None Coding Level of Care Code Acute Branch Account Manager for [facility] Fwd Diagnoses Acute respiratory failure with hypoxia J96.01 COPD exacerbation J44.1 CHF exacerbation I50.33 Heart failure type: diastolic Pneumonia J18.9 Hyperkalemia E87.5 Elevated troponin R77.8 UTI (urinary tract infection) N39.0
--- NOTE | 2020-06-28 13:28 | PC.NURSE ---
Discharge instructions given per the physician's instructions. Patient verbalized understanding of teaching and medication changes and did not have any further questions. IV has been removed. Patient dressed self. [employer] ride set up by dialysis social worker. No further needs at this time. Nurse to continue to monitor.
== END 2020-06-28 14:47 | disposition home health service (06) | DRG 871 ==
LOC: ER 04:53 → ICU 06:36 → CSU 06-25 16:36
PROVIDERS: Family Medicine; Internal Medicine; Admitting Provider Hospitalist; Emergency Provider Emergency Medicine; PCP Nurse Practitioner Family; Visit Provider Student in an Organized Health Care Education/Training Program
DX: A41.9 Sepsis, unspecified organism (principal); J96.02 Acute respiratory failure with hypercapnia; J96.01 Acute respiratory failure with hypoxia; J18.9 Pneumonia, unspecified organism; I50.33 Acute on chronic diastolic (congestive) heart failure; I21.A1 Myocardial infarction type 2; J44.1 Chronic obstructive pulmonary disease with (acute) exacerbation; J44.0 Chronic obstructive pulmonary disease with (acute) lower respiratory infection; N39.0 Urinary tract infection, site not specified; E87.2 Acidosis; F41.8 Other specified anxiety disorders; I48.0 Paroxysmal atrial fibrillation; C67.9 Malignant neoplasm of bladder, unspecified; Z79.01 Long term (current) use of anticoagulants; N40.0 Benign prostatic hyperplasia without lower urinary tract symptoms; Z85.46 Personal history of malignant neoplasm of prostate; E78.5 Hyperlipidemia, unspecified; I11.0 Hypertensive heart disease with heart failure; D50.9 Iron deficiency anemia, unspecified; I34.0 Nonrheumatic mitral (valve) insufficiency; I73.9 Peripheral vascular disease, unspecified; Z87.442 Personal history of urinary calculi; Z87.891 Personal history of nicotine dependence; E87.5 Hyperkalemia; F10.20 Alcohol dependence, uncomplicated; B96.5 Pseudomonas (aeruginosa) (mallei) (pseudomallei) as the cause of diseases classified elsewhere; Z79.51 Long term (current) use of inhaled steroids; G25.81 Restless legs syndrome
CPT/HCPCS: 12345; 36415; 36416; 36600; 51702; 71045; 80048; 80051; 80053; 80307; 81001; 82330; 82803; 82805; 82962; 83605; 83735; 83880; 84100; 84132; 84145; 84484; 85025; 85610; 87040; 87081; 87086; 87205; 87426; 87635; 93005; 94002; 94003; 94640; 94799; 96372; 97161; 97530; 99283; 99292; J0456; J0696; J1650; J1940; J1956; J2543; J2704; J3010; J3475; J3490; J7050; J7512; J7626

== ENCOUNTER 2020-06-30 08:54 | Outpatient (CLI) | payer MEDICARE, MEDICAID, SELFPAY ==
[2020-06-30 09:07] VITALS: BMI 27.7
--- NOTE | 2020-06-30 09:10 | ECG_ITS ---
[facility] Test Date: 2020-06-30 Pat Name: Damien Stringer Department: Room: Gender: Male Line Tender: : 1945 Requested By: Duy Yip Order Number: [id number] Clarita MD: Duy Yip M.D. Interpretive Statements NAME OF STUDY: LEXISCAN SESTAMIBI STRESS TEST INDICATION: [facility]ED[facility]: At the baseline, the EKG revealed atrial fibrillation with a frequent PVCs. No significant ST-T changes. Heart rate of 80 bpm. The baseline blood pressure was 115/57 mm Hg with a heart rate of 74 beats/min. Lexiscan was infused over a period of 20 seconds. A total of 0.4 milligrams of Lexiscan was infused. The stress phase was continued for a total of 5 minutes. Heart rate at the end of the stress phase was 79 with a blood pressure 100/46. The EKG at the peak infusion revealed no significant changes. Sestamibi was injected 20 seconds after the Lexiscan infusion. Blood pressure at the end of the recovery phase was 106/46 with a heart rate of 76 per minute. CONCLUSION: 1. No significant EKG changes with the LexiScan infusion 2. No LexiScan induced chest pain or cardiac arrhythmia 3. Normal blood pressure and heart rate response 4. Sestamibi/sestamibi perfusion scan pending; see separate report. Electronically Signed On 07-10-2020 11:34:27 NCQA SPECIALIST by Duy Yip M.D. [id number]
--- NOTE | 2020-06-30 09:12 | NMCV_ITS ---
NM pinky perf SPECT r/s* [id number] Damien Stringer Age: 75 Gender: M : 1945 Exam Date: 06/30/2020 10:39 Ordering Phys: Duy Yip MD ([email or web address]) Technologist: DIGNA Coughlin Exam Location: [facility] Indications: NONSTEMI STRESS TEST Please [facility] IMAGE PROTOCOL Rest/Stress 1 Lexiscan Day Radiopharmaceutical Dose (mCi) Administration Site Administered by Rest: Tc-99m 10.6 IV DIGNA Coughlin Sestamibi Stress:Tc-99m 32.7 IV DIGNA Coughlin Sestamibi Rest: 30-Jun-2020 60 Discovery 630 Stress: 30-Jun-2020 60 Discovery 630 0.4mg Lexiscan. Supine position only as patient was unable to lay prone. SPECT RESULTS Technical Quality: Good Raw Data Analysis: Normal Image Corrections: No attenuation or motion correction applied Summed Stress Score: 8 Summed Rest Score: 7 Summed Difference Score: 2 PERFUSION FINDINGS Moderate area of severely decreased tracer uptake was noted in the basal, mid and apical inferior, apical lateral regions with subtle areas of reversibility in the mid and apical inferior regions. A small area of decreased tracer uptake was noted in the mid and apical anterior region, with no significant reversibility. FUNCTIONAL RESULTS (calculated via Gated SPECT) Stress Image LV EF (%): 71 Stress EDV (mL):139 TID: 1.02 Stress ESV (mL):41 FUNCTIONAL FINDINGS: Segmental wall motion analysis revealing no gross wall motion abnormalities. IMPRESSIONS #1. Myocardial perfusion may revealing a moderate area of similar decreases uptake in the inferior wall segments with a subtle reversibility in the mid and apical regions, suggestive of myocardial scarring in the distribution of the right coronary artery with very small areas of paul-infarction ischemia. Small area of slightly decreased persistent tracer uptake in the mid and apical anterior wall region suggestive of medical scarring versus attenuation artifact. #2 normal LV ejection of 71%. #3. LV wall motion analysis revealing no gross wall motion normalities. #4. Normal LV volume. Compared to the study from 03/05/2019, appears to have more scarring and development of very small area of ischemia Dr Duy Yip MD FACC (Electronically Signed) Final Date: 30 June 2020 14:47 S
--- NOTE | 2020-06-30 11:05 | SUR.PREOP ---
Patient reports no pain or discomfort prior to the start of the procedure.
[2020-06-30] MEDS: regadenoson 0.4 Mg/5 ml Syringe IVP (11:10)
[2020-06-30 11:27] VITALS: BP 106/52; PULSE 61
== END 2020-06-30 08:55 | disposition home or self-care (01) ==
PROVIDERS: PCP Nurse Practitioner Family; Visit Provider Internal Medicine Cardiovascular Disease
DX: I21.4 Non-ST elevation (NSTEMI) myocardial infarction (principal); I67.82 Cerebral ischemia
CPT/HCPCS: 78452; 93017; A9500; J2785

== ENCOUNTER → 2020-08-01 13:26 | Outpatient (BNVA) | payer MEDICARE, MEDICAID, SELFPAY | PROVIDERS: PCP Nurse Practitioner Family; Visit Provider Internal Medicine Critical Care Medicine | DX: Z01.812 Encounter for preprocedural laboratory examination (principal); J18.9 Pneumonia, unspecified organism | CPT/HCPCS: 87635 ==

== ENCOUNTER → 2020-08-03 10:19 | Outpatient (BNVA) | payer MEDICARE, MEDICAID, SELFPAY | PROVIDERS: PCP Nurse Practitioner Family; Visit Provider Urology | DX: C67.8 Malignant neoplasm of overlapping sites of bladder (principal); C61 Malignant neoplasm of prostate; N30.80 Other cystitis without hematuria; Z85.46 Personal history of malignant neoplasm of prostate | CPT/HCPCS: 81003; 84153; 87077; 87086; 87184 ==

== ENCOUNTER 2020-08-06 09:58 | Outpatient (CLI) | payer MEDICARE, MEDICAID, SELFPAY ==
--- NOTE | 2020-08-06 13:02 | PFTS_ITS ---
Date of Study:08/06/20 Date of Dictation: MECHANICS: Forced vital capacity (FVC) is reduced. Forced expiratory volume in one second (FEV1) is reduced. FEV1/FVC is normal. FLOW VOLUME LOOP: Narrow. LUNG VOLUMES: Total lung capacity (TLC) is normal. Residual volume (RV) is increased. DIFFUSING CAPACITY FOR CARBON MONOXIDE: Moderately reduced. INTERPRETATION: The pulmonary function tests are consistent with nonspecific ventilatory limitation. The prebronchodilator spirometry is consistent with moderate restriction, however, the lung volumes do not support a diagnosis of restrictive lung disease. This is likely secondary to a combined obstructive and restrictive ventilatory defect. Gas exchange (DLCO) is moderately reduced. MTDD
== END 2020-08-06 09:59 | disposition home or self-care (01) ==
PROVIDERS: PCP Family Medicine; Visit Provider Internal Medicine Critical Care Medicine
DX: J44.9 Chronic obstructive pulmonary disease, unspecified (principal)
CPT/HCPCS: 94010; 94726; 94729

== ENCOUNTER 2020-08-14 17:05 | Emergency (ER) | payer MEDICARE, MEDICAID, SELFPAY ==
[2020-08-14 17:13] VITALS: BP 147/81; PULSE 95; RESP 25; O2SAT 92; BMI 27.3
--- NOTE | 2020-08-14 17:21 | XRR_ITS ---
PROCEDURE INFORMATION: Exam: XR Chest Exam date and time: 08/14/2020 5:24 PM Age: 75 years old Clinical indication: Shortness of breath; Additional info: SOB TECHNIQUE: Imaging protocol: XR of the chest Views: 1 view. COMPARISON: CR XR chest 1V portable [id number] 06/27/2020 1:51 PM FINDINGS: Lungs: Bibasilar atelectasis versus infiltrate. Pleural spaces: Unremarkable. No pleural effusion. No pneumothorax. Heart/Mediastinum: Cardiomegaly. Bones/joints: Unremarkable. XR/XR chest 1V portable [id number] IMPRESSION: 1. Bibasilar atelectasis versus infiltrate. 2. Cardiomegaly.
--- NOTE | 2020-08-14 17:22 | ECG_ITS ---
[facility] Test Date: 2020-08-14 Pat Name: Damien Stringer Department: Room: Gender: Male Director Funds Development: : 1945 Requested By: Jose Villalobos I Order Number: [id number] Clarita MD: Yury Fernandez M.D. Measurements Intervals [place] Rate: 99 P: VT: QRS: 77 QRSD: 76 T: 70 QT: 321 QTc: 412 Interpretive Statements ATRIAL FIBRILLATION WITH ABERRANT CONDUCTION OR VENTRICULAR PREMATURE COMPLEXES Compared to ECG 06/25/2020 17:35:10 Ventricular premature complex(es) now present Aberrant conduction of supraventricular beat(s) now present Electronically Signed On 08-14-2020 18:22:22 CERAMIC RESEARCH ENGINEER by Yury Fernandez M.D. [email or web address] [email or web address]/[id number]
--- NOTE | 2020-08-14 17:36 | ED_ITS ---
HPI - SOB/Dyspnea General: Chief Complaint: Shortness of Breath/Dyspnea Stated Complaint: SOB Time Seen by Provider: 08/14/20 17:11 Source: patient Mode of arrival: ambulatory Limitations: no limitations History of Present Illness: HPI Narrative: Patient is a 75-year-old male who developed sudden onset shortness of breath and chest pain while watching TV this evening. He says he has associated fever and chills, also has nausea, dizziness. He is worried that he may have the COVID-19. He got the first dose of Covid vaccination about 3 weeks ago. MD elicited complaint: shortness of breath, cough and chest pain Onset (ago): minute(s) (30) Timing: constant Severity: moderate Exacerbating factors: nothing Relieving factors: nothing Associated symptoms: Reports chest pain, cough, dizziness, fever(s) and nausea; Deny abdominal pain, chest congestion, diaphoresis, extremity pain, hemoptysis, lightheadedness, myalgias, orthopnea, palpitations, paresthesias, polydipsia, polyuria, rash, sense of impending doom, syncope or vomiting Treatment prior to arrival: none Review of Systems General: Reports: 10 or more systems reviewed and unremarkable except in HPI and below Const: Reports: fever(s); Denies: diaphoresis Eyes: Denies: change in vision or blurry vision ENMT: Denies: throat pain, enlarged tonsils, odynophagia, hoarseness, mouth pain or swelling of lips/tongue Card: Reports: chest pain; Denies: palpitations, lightheadedness, syncope or orthopnea Resp: Denies: hemoptysis or chest congestion GI: Reports: nausea; Denies: abdominal pain or vomiting : Denies: flank pain, dysuria, urinary frequency, urinary urgency or urinary hesitancy Musc: Denies: extremity pain Skin/Breast: Denies: rash, pruritus or erythema Neuro: Reports: dizziness Endo: Denies: polyuria or polydipsia PFSH ED PFSH: Medical History (Reviewed 08/14/20 @ 17:38 by Jose Villalobos MD, [facility] [place]) Anxiety and depression Atrial fibrillation Bladder cancer Chronic anticoagulation COPD (chronic obstructive pulmonary disease) Cystitis cystica Genital lesion, male History of prostate cancer Hyperlipidemia Hypertension Iron deficiency anemia Left atrial enlargement 4.9 cm width Mitral regurgitation Peripheral vascular disease of extremity Renal calculi Surgical History (Reviewed 08/14/20 @ 17:38 by Jose Villalobos MD, [facility] [place]) H/O esophagogastroduodenoscopy H/O eye surgery H/O eye surgery detached retina left eye History of colonoscopy (~2004) History of laparotomy History of lithotripsy History of ureter stent Family History (Reviewed 08/14/20 @ 17:38 by Jose Villalobos MD, [facility] [place]) Mother , at age 94 Hypertension Heart disease Father , at age 72 Renal disease Heart disease Brother Heart disease Other CAD (coronary artery disease) Cancer Denies family history of Anesthesia complication Bleeding disorder Social History (Reviewed 08/14/20 @ 17:38 by Jose Villalobos MD, [facility] [place]) Smoking and tobacco status: former smoker Quit status (tobacco): has quit using tobacco Year quit tobacco: 2019 - 1PPD x 50 Years Second hand smoke exposure: Yes Smoking risk assessment/counseling performed?: No Alcohol intake: former Year of sobriety/quit date alcohol: 2019 Desire information about alcohol rehabilitation?: No Counseling given: No Adopted: No Caregiver/support person: No Lives independently: Yes Household members: none Marital status: Single Current occupational status: retired History of recent travel: No Current gender identity: Male Physical Exam Narrative: EXAM NARRATIVE: Strong odor of alcohol Const: COMMON NORMALS: no acute distress, average body habitus, patient oriented x3, no limitations, healthy appearing, alert and well nourished HENMT: COMMON NORMALS: normocephalic, atraumatic and moist oral mucous membranes HEAD & SCALP: normocephalic and atraumatic Neck/C-Spine: COMMON NORMALS: no meningeal signs and no JVD Chest: COMMONS NORMALS: normal inspection of the chest and normal palpation of entire chest wall Resp: COMMON NORMALS: normal respiratory effort, No retractions, No use of accessory muscles, clear to auscultation bilaterally and percussion normal AUSCULTATION: clear to auscultation bilaterally PERCUSSION: percussion normal Cardio: COMMON NORMALS: no JVD, regular rate, regular rhythm, S1 normal heart sound present, S2 normal heart sound present, No gallops present (Cardio), No clicks present (Cardio), No murmurs present (Cardio), No rub (Cardio) and Peripheral pulses 2+ throughout RATE: regular rate RHYTHM: regular rhythm HEART SOUNDS: S1 normal heart sound present and S2 normal heart sound present PERIPHERAL PULSES: Peripheral pulses 2+ throughout GI: COMMON NORMALS: Normal to inspection, nondistended, normoactive bowel sounds present, Soft to palpation, non-tender, No hepatosplenomegaly present, no masses and no bruits PALPATION: Yes Soft to palpation and Yes No hepatosplenomegaly present Extremity: COMMON NORMALS: normal to inspection, full ROM, capillary refill normal and no calf tenderness GENERAL: Yes edema Neuro: COMMON NORMALS: patient oriented x3 SENSORIUM/ORIENTATION: Yes alert MENINGEAL SIGNS: Yes no meningeal signs Skin: COMMON NORMALS: no rashes or lesions noted, no wounds, turgor normal, no jaundice, no petechiae and no mottling GENERAL SKIN EXAM: no rashes or lesions noted and turgor normal Course Reevaluation(s): Reevaluation #1: Discussed his lab and imaging findings with him. 2-hour high-sensitivity troponin delta is flat. Chest x-ray suggestive of community-acquired pneumonia. He will be discharged home on oral antibiotics. He was also with levels of alcohol that suggest he was intoxicated on arrival. He is advised on safe drinking practices. Patient voiced understanding and is in agreement with the plan Time: 21:35 Vital Signs: Vital signs: Vital Signs Pulse Rate 95 08/14/20 17:13 Respiratory Rate 25 H 08/14/20 17:13 Blood Pressure 147/81 08/14/20 17:13 Pulse Oximetry 92 08/14/20 17:13 MDM - SOB/Dyspnea MDM Narrative: Medical decision making narrative: 75-year-old male with chest pain. Symptoms started while he was watching TV. Evaluation in the emergency department shows chest pain is likely not of cardiac origin. He was also intoxicated on arrival. X-ray of his chest shows likely bibasilar pneumonia. He was given a dose of ceftriaxone in the emergency department. Patient had a fever at home but none in the ER. He was discharged home on oral amoxicillin and azithromycin. He will follow-up with his primary care provider. He was advised on moderation when consuming alcohol. Medical Records: Attestation: I reviewed the patient's medical records. Lab Data: Attestation: I reviewed the patient's lab results. Labs: Lab Results 08/14/20 08/14/20 08/14/20 Range/Units 17:30 17:30 17:32 WBC (4.0-10.0) 10^3/ uL RBC (4.1-5.3) 10^6/u L Hgb (11.7-16.6) g/dL Hct (42.0-52.0) % MCV (80-94) fL MCH (28.0-34.0) pg MCHC (30.0-36.0) g/dL RDW (12.1-15.1) % Plt Count (130-400) 10^3/c mm MPV (7.4-10.4) fL Neut % (Auto) % Lymph % (Auto) % [place] % (Auto) % Eos % (Auto) % Baso % (Auto) % Neut # (Auto) (1.8-7.7) 10^3/u L Lymph # (Auto) (0.8-4.8) 10^3/u L [place] # (Auto) (0.2-0.9) 10^3/u L Eos # (Auto) (0.0-0.8) 10^3/u L Baso # (Auto) (0.0-0.1) 10^3/u L Nucleated RBC % (a uto) % Nucleated RBCs # /100WBC D-Dimer (0-0.59) ug/mIFE U Specimen Type Arterial Sample Site Radial, left ABG pH 7.41 (7.35-7.45) ABG pCO2 36.6 (35-45) mmHg ABG pO2 65.0 L (80.0-100.0) mmH g ABG HCO3 23.2 (22-26) mmol/L ABG Base Excess -1.0 (-2.0-2.0) mmol/ L Ancelmo Test Pos Hematocrit 44.7 (42-52) % O2 Delivery Device Room air Roll Cutter ID Gd Sodium (136-145) mmol/L Potassium (3.5-5.1) mmol/L Chloride (98-107) mmol/L Carbon Dioxide (22-29) mmol/L Anion Gap (5-19) BUN (8-23) mg/dL Creatinine (0.7-1.2) mg/dL GFR Calculation Glucose (65-115) mg/dL Calculated Osmolal ity (285-295) mOsm/k g Lactic Acid (0.5-2.2) mmol/L Lactic Acid (Sepsi s) (0.5-2.2) mmol/L Calcium (8.5-10.5) mg/dL Total Bilirubin (0.15-1.2) mg/dL AST (0-40) U/L ALT (0-41) U/L Alkaline Phosphata se (40-130) IU/L Lactate Dehydrogen ase (135-225) U/L Troponin T Baselin e (0-15) ng/L Troponin T 120 Min [place] (0-15) ng/L Delta Troponin T (0-10) ABS# C-Reactive Protein (0.0-4.9) mg/L NT-Pro-B Natriuret Pep (0-125) pg/mL Total Protein (6.6-8.7) g/dL Albumin (3.5-5.2) g/dL Globulin (1.3-4.6) g/dL Lipase (13-60) U/L Procalcitonin (0-0.5) ng/mL Ethyl Alcohol (0-10) mg/dL Influenza Type A A g Negative (Negative) Influenza Type B A g Negative (Negative) SARS-CoV-2 Ag (Rap id) Negative (Negative) 08/14/20 08/14/20 08/14/20 Range/Units 17:50 17:50 17:50 WBC 8.0 (4.0-10.0) 10^3/ uL RBC 5.02 (4.1-5.3) 10^6/u L Hgb 14.4 (11.7-16.6) g/dL Hct 44.6 (42.0-52.0) % MCV 88.8 (80-94) fL MCH 28.7 (28.0-34.0) pg MCHC 32.3 (30.0-36.0) g/dL RDW 14.8 (12.1-15.1) % Plt Count 253 (130-400) 10^3/c mm MPV 9.9 (7.4-10.4) fL Neut % (Auto) 55.2 % Lymph % (Auto) 33.5 % [place] % (Auto) 8.9 % Eos % (Auto) 1.5 % Baso % (Auto) 0.6 % Neut # (Auto) 4.39 (1.8-7.7) 10^3/u L Lymph # (Auto) 2.7 (0.8-4.8) 10^3/u L [place] # (Auto) 0.7 (0.2-0.9) 10^3/u L Eos # (Auto) 0.1 (0.0-0.8) 10^3/u L Baso # (Auto) 0.1 (0.0-0.1) 10^3/u L Nucleated RBC % (a uto) 0 % Nucleated RBCs # 0.0 /100WBC D-Dimer 0.45 (0-0.59) ug/mIFE U Specimen Type Sample Site ABG pH (7.35-7.45) ABG pCO2 (35-45) mmHg ABG pO2 (80.0-100.0) mmH g ABG HCO3 (22-26) mmol/L ABG Base Excess (-2.0-2.0) mmol/ L Ancelmo Test Hematocrit (42-52) % O2 Delivery Device Roll Cutter ID Sodium 136 (136-145) mmol/L Potassium 3.8 (3.5-5.1) mmol/L Chloride 99 (98-107) mmol/L Carbon Dioxide 25 (22-29) mmol/L Anion Gap 15.8 (5-19) BUN 8 (8-23) mg/dL Creatinine 0.8 (0.7-1.2) mg/dL GFR Calculation Not Reportable Glucose 96 (65-115) mg/dL Calculated Osmolal ity 280 L (285-295) mOsm/k g Lactic Acid (0.5-2.2) mmol/L Lactic Acid (Sepsi s) (0.5-2.2) mmol/L Calcium 9.8 (8.5-10.5) mg/dL Total Bilirubin 0.2 (0.15-1.2) mg/dL AST 19 (0-40) U/L ALT 12 (0-41) U/L Alkaline Phosphata se 155 H (40-130) IU/L Lactate Dehydrogen ase 175 (135-225) U/L Troponin T Baselin e (0-15) ng/L Troponin T 120 Min [place] (0-15) ng/L Delta Troponin T (0-10) ABS# C-Reactive Protein 12.9 H (0.0-4.9) mg/L NT-Pro-B Natriuret Pep 697 H (0-125) pg/mL Total Protein 7.3 (6.6-8.7) g/dL Albumin 3.9 (3.5-5.2) g/dL Globulin 3.4 (1.3-4.6) g/dL Lipase (13-60) U/L Procalcitonin 0.07 (0-0.5) ng/mL Ethyl Alcohol 238 H (0-10) mg/dL Influenza Type A A g (Negative) Influenza Type B A g (Negative) SARS-CoV-2 Ag (Rap id) (Negative) 08/14/20 08/14/20 08/14/20 Range/Units 17:50 17:50 17:50 WBC (4.0-10.0) 10^3/ uL RBC (4.1-5.3) 10^6/u L Hgb (11.7-16.6) g/dL Hct (42.0-52.0) % MCV (80-94) fL MCH (28.0-34.0) pg MCHC (30.0-36.0) g/dL RDW (12.1-15.1) % Plt Count (130-400) 10^3/c mm MPV (7.4-10.4) fL Neut % (Auto) % Lymph % (Auto) % [place] % (Auto) % Eos % (Auto) % Baso % (Auto) % Neut # (Auto) (1.8-7.7) 10^3/u L Lymph # (Auto) (0.8-4.8) 10^3/u L [place] # (Auto) (0.2-0.9) 10^3/u L Eos # (Auto) (0.0-0.8) 10^3/u L Baso # (Auto) (0.0-0.1) 10^3/u L Nucleated RBC % (a uto) % Nucleated RBCs # /100WBC D-Dimer (0-0.59) ug/mIFE U Specimen Type Sample Site ABG pH (7.35-7.45) ABG pCO2 (35-45) mmHg ABG pO2 (80.0-100.0) mmH g ABG HCO3 (22-26) mmol/L ABG Base Excess (-2.0-2.0) mmol/ L Ancelmo Test Hematocrit (42-52) % O2 Delivery Device Roll Cutter ID Sodium (136-145) mmol/L Potassium (3.5-5.1) mmol/L Chloride (98-107) mmol/L Carbon Dioxide (22-29) mmol/L Anion Gap (5-19) BUN (8-23) mg/dL Creatinine (0.7-1.2) mg/dL GFR Calculation Glucose (65-115) mg/dL Calculated Osmolal ity (285-295) mOsm/k g Lactic Acid 2.5 H (0.5-2.2) mmol/L Lactic Acid (Sepsi s) (0.5-2.2) mmol/L Calcium (8.5-10.5) mg/dL Total Bilirubin (0.15-1.2) mg/dL AST (0-40) U/L ALT (0-41) U/L Alkaline Phosphata se (40-130) IU/L Lactate Dehydrogen ase (135-225) U/L Troponin T Baselin e 31 H (0-15) ng/L Troponin T 120 Min [place] (0-15) ng/L Delta Troponin T (0-10) ABS# C-Reactive Protein (0.0-4.9) mg/L NT-Pro-B Natriuret Pep (0-125) pg/mL Total Protein (6.6-8.7) g/dL Albumin (3.5-5.2) g/dL Globulin (1.3-4.6) g/dL Lipase 22 (13-60) U/L Procalcitonin (0-0.5) ng/mL Ethyl Alcohol (0-10) mg/dL Influenza Type A A g (Negative) Influenza Type B A g (Negative) SARS-CoV-2 Ag (Rap id) (Negative) 08/14/20 08/14/20 Range/Units 20:49 20:49 WBC (4.0-10.0) 10^3/ uL RBC (4.1-5.3) 10^6/u L Hgb (11.7-16.6) g/dL Hct (42.0-52.0) % MCV (80-94) fL MCH (28.0-34.0) pg MCHC (30.0-36.0) g/dL RDW (12.1-15.1) % Plt Count (130-400) 10^3/c mm MPV (7.4-10.4) fL Neut % (Auto) % Lymph % (Auto) % [place] % (Auto) % Eos % (Auto) % Baso % (Auto) % Neut # (Auto) (1.8-7.7) 10^3/u L Lymph # (Auto) (0.8-4.8) 10^3/u L [place] # (Auto) (0.2-0.9) 10^3/u L Eos # (Auto) (0.0-0.8) 10^3/u L Baso # (Auto) (0.0-0.1) 10^3/u L Nucleated RBC % (a uto) % Nucleated RBCs # /100WBC D-Dimer (0-0.59) ug/mIFE U Specimen Type Sample Site ABG pH (7.35-7.45) ABG pCO2 (35-45) mmHg ABG pO2 (80.0-100.0) mmH g ABG HCO3 (22-26) mmol/L ABG Base Excess (-2.0-2.0) mmol/ L Ancelmo Test Hematocrit (42-52) % O2 Delivery Device Roll Cutter ID Sodium (136-145) mmol/L Potassium (3.5-5.1) mmol/L Chloride (98-107) mmol/L Carbon Dioxide (22-29) mmol/L Anion Gap (5-19) BUN (8-23) mg/dL Creatinine (0.7-1.2) mg/dL GFR Calculation Glucose (65-115) mg/dL Calculated Osmolal ity (285-295) mOsm/k g Lactic Acid (0.5-2.2) mmol/L Lactic Acid (Sepsi s) 2.1 (0.5-2.2) mmol/L Calcium (8.5-10.5) mg/dL Total Bilirubin (0.15-1.2) mg/dL AST (0-40) U/L ALT (0-41) U/L Alkaline Phosphata se (40-130) IU/L Lactate Dehydrogen ase (135-225) U/L Troponin T Baselin e (0-15) ng/L Troponin T 120 Min [place] 28.47 H (0-15) ng/L Delta Troponin T -2.53 L (0-10) ABS# C-Reactive Protein (0.0-4.9) mg/L NT-Pro-B Natriuret Pep (0-125) pg/mL Total Protein (6.6-8.7) g/dL Albumin (3.5-5.2) g/dL Globulin (1.3-4.6) g/dL Lipase (13-60) U/L Procalcitonin (0-0.5) ng/mL Ethyl Alcohol (0-10) mg/dL Influenza Type A A g (Negative) Influenza Type B A g (Negative) SARS-CoV-2 Ag (Rap id) (Negative) Imaging Data^: CXR: Attestation: I personally reviewed and interpreted this imaging study as follows: Radiologist's impression: [address] [address] XRay Report Signed Patient: Damien Stringer #: [id number] : 6Acc#:[id number] Age/Sex: 75 / MADM Date: 08/14/20 Loc: [facility]/Bed: Attending Dr: Ordering Provider/Ordering MD: Jose Villalobos MD, [facility] [place] Date of Service: 08/14/20 Procedure(s): XR chest 1V portable [id number] Accession Number(s): [id number] Report Number: [id number] PROCEDURE INFORMATION: Exam: XR Chest Exam date and time: 08/14/2020 5:24 PM Age: 75 years old Clinical indication: Shortness of breath; Additional info: SOB TECHNIQUE: Imaging protocol: XR of the chest Views: 1 view. COMPARISON: CR XR chest 1V portable [id number] 06/27/2020 1:51 PM FINDINGS: Lungs: Bibasilar atelectasis versus infiltrate. Pleural spaces: Unremarkable. No pleural effusion. No pneumothorax. Heart/Mediastinum: Cardiomegaly. Bones/joints: Unremarkable. XR/XR chest 1V portable [id number] IMPRESSION: 1. Bibasilar atelectasis versus infiltrate. 2. Cardiomegaly. Dictated By:Fernando Overton MD Signed By:Fernando Overton MDSigned Date/Time:08/14/201755 DD/ 53 EKG Data^: EKG 1: Attestation: I personally reviewed and interpreted this EKG as follows: EKG Interpretation Date: 08/14/20 EKG interpretation time: 17:09 Prior EKG tracings: not available for review Interpretation: Atrial fibrillation. Heart rate [address] changes. EKG 2: Attestation: I personally reviewed and interpreted this EKG as follows: EKG Interpretation Date: 08/14/20 EKG interpretation time: 19: Prior EKG tracings: available for review Interpretation: Atrial fibrillation. Heart rate [address] changes. Discharge Plan Discharge Patient Disposition: Home Clinical Impression: Community acquired pneumonia Qualifiers: Laterality: unspecified laterality Qualified Code(s): J18.9 - Pneumonia, unspecified organism Alcohol intoxication Qualifiers: Complication of substance-induced condition: uncomplicated Qualified Code(s): F10.920 - Alcohol use, unspecified with intoxication, uncomplicated Condition: Stable Prescriptions: New amoxicillin 500 mg tablet 1,000 mg PO Q8H 7 Days Qty: 42 RF: 0 azithromycin 250 mg tablet See Rx Instructions .ROUTE .COMPLEX Qty: 6 RF: 0 Continued ascorbate calcium (vitamin C) 500 mg tablet 1 gm PO BID@18 RF: 0 zolpidem 10 mg tablet 10 mg PO BEDTIME@1999 RF: 0 albuterol sulfate 2.5 mg /3 mL (0.083 %) solution for nebulization 2.5 mg inhalation Q6H PRN (Reason: Shortness Of Breath) RF: 0 metoprolol tartrate 25 mg tablet 50 mg PO Q12H RF: 0 bumetanide 1 mg tablet 1 mg PO DAILY@0600 RF: 0 ciprofloxacin HCl 500 mg tablet 500 mg PO BID Qty: 60 RF: 1 ropinirole 3 mg Tablet 3 mg PO DAILY@19 RF: 0 mirtazapine 30 mg Tablet 30 mg PO DAILY@18 RF: 0 ferrous sulfate [iron] 325 mg (65 mg iron) Tablet 325 mg PO DAILY@06 RF: 0 cilostazol 50 mg tablet 50 mg PO BID@,18 RF: 0 pantoprazole [Protonix] 40 mg tablet,delayed release (DR/EC) 40 mg PO DAILY@06 RF: 0 buspirone 10 mg tablet 10 mg PO BID@,18 RF: 0 thiamine mononitrate (vit B1) [Vitamin B-1 (mononitrate)] 100 mg tablet 100 mg PO DAILY@06 RF: 0 DILT-XR 180 mg capsule,ext.rel 24h degradable 180 mg PO DAILY@0600 RF: 0 potassium chloride 10 mEq tablet,ER particles/crystals 10 meq PO DAILY@0600 RF: 0 Chantix Continuing Month Box 1 mg tablet 1 mg PO DAILY@0600 RF: 0 Advair Diskus 250-50 mcg/dose blister with device 1 puff inhalation BID@0600,1800 RF: 0 isosorbide mononitrate 20 mg tablet 20 mg PO BID@,18 RF: 0 pravastatin [Pravachol] 40 mg tablet 40 mg PO DAILY@18 RF: 0 tamsulosin [Flomax] 0.4 mg capsule 0.4 mg PO DAILY@06 RF: 0 fluticasone propionate [Flonase Allergy Relief] 50 mcg/actuation spray,suspension 1 spray INTRANASAL BID PRN (Reason: Allergy Symptoms) RF: 0 Spiriva Respimat 2.5 mcg/actuation mist 1 puff INHALATION BID@0600,1800 RF: 0 Eliquis 5 mg tablet 5 mg PO BID@,18 RF: 0 Hold Instructions: Resume on 04/27/20. albuterol sulfate 90 mcg/actuation HFA aerosol inhaler 2 inh INHALATION BID PRN (Reason: shortness of breath or wheezing) RF: 0 Discharge Orders: Discharge ED (Routine); Ordered 08/14/20 Ordered By: Jose Villalobos Referrals: Randolph Carlson MD [Primary Care Provider] - 1-3 days Discharge Diet: Usual diet Discharge Activity: Increase activity as tolerated Patient Instructions: Alcohol Intoxication (ED), Community-acquired Pneumonia (ED) Activity Restrictions/Additional Instructions: Return for any new or worsening symptoms. Follow-up with your primary care provider within 3 days. Take the antibiotics as prescribed. It is important that you do not drink alcohol more than is safe for you as this may lead to many complications including falls and bone fractures, head bleeds or other medical issues. If you need help with alcoholism follow-up with your primary care provider. Coding Level of Care Code ED Director Software Development for Chg Fwd Exam Comprehensive
[2020-08-14 17:51] LABS: ABG PCO2 36.6 mmHg (35-45); ABG PH Result 7.41 (7.35-7.45); Arterial Blood Gas Hematocrit 44.7 % (42-52); Blood Gas Allen Test Pos; Blood Gas Operator Identificat GD; Blood Gas Sample Site Radial, left; Blood Gas Sample Type Arterial; HCO3 ABG 23.2 mmol/L (22-26); Oxygen Device ROOM AIR
[2020-08-14 18:04] LABS: Basophils # 0.1 10^3/uL (0.0-0.1); Basophils % 0.6 %; Eosinophils # 0.1 10^3/uL (0.0-0.8); Eosinophils % 1.5 %; Hematocrit 44.6 % (42.0-52.0); Hemoglobin 14.4 g/dL (11.7-16.6); Lymphocytes # 2.7 10^3/uL (0.8-4.8); Lymphocytes % 33.5 %; Mean Corpuscular HGB Conc 32.3 g/dL (30.0-36.0); Mean Corpuscular Hemoglobin 28.7 pg (28.0-34.0); Mean Corpuscular Volume 88.8 fL (80-94); Mean Platelet Volume 9.9 fL (7.4-10.4); Monocytes # 0.7 10^3/uL (0.2-0.9); Monocytes % 8.9 %; Neutrophils # 4.39 10^3/uL (1.8-7.7); Neutrophils % 55.2 %; Nucleated Red Blood Cells % 0 %; Platelet Count 253 10^3/cmm (130-400); Red Blood Count 5.02 10^6/uL (4.1-5.3); Red Cell Distribution Width 14.8 % (12.1-15.1)
[2020-08-14 18:08] LABS: Influenza A by IFA Negative (Negative); Influenza B by IFA Negative (Negative); SARS Covid-2 Antigen Negative (Negative)
[2020-08-14 18:12] LABS: D Dimer 0.45 ug/mIFEU (0-0.59)
[2020-08-14 18:26] LABS: Lactic Sepsis W/Reflex 2.5 mmol/L (0.5-2.2)
[2020-08-14] MEDS: cefTRIAXone 2,000 MG in sodium chloride 0.9% (plus) 50 ML 100 MG IV (18:31)
[2020-08-14 18:39] LABS: NT Pro B Type Natriuretic Pept 697 pg/mL (0-125); Procalcitonin 0.07 ng/mL (0-0.5)
[2020-08-14 18:41] LABS: Troponin(5th) Baseline 31 ng/L (0-15)
[2020-08-14 18:50] LABS: Alanine Aminotransferase 12 U/L (0-41); Albumin Level 3.9 g/dL (3.5-5.2); Alcohol Level 238 mg/dL (0-10); Alkaline Phosphatase 155 IU/L (40-130); Anion Gap 15.8 (5-19); Aspartate Amino Transferase 19 U/L (0-40); Blood Urea Nitrogen 8 mg/dL (8-23); C Reactive Protein 12.9 mg/L (0.0-4.9); Calcium 9.8 mg/dL (8.5-10.5); Carbon Dioxide 25 mmol/L (22-29); Chloride 99 mmol/L (98-107); Globulin 3.4 g/dL (1.3-4.6); Glucose 96 mg/dL (65-115); Lactate Dehydrogenase 175 U/L (135-225); Osmolality Calculated 280 mOsm/kg (285-295); Potassium 3.8 mmol/L (3.5-5.1); Sodium 136 mmol/L (136-145); Total Bilirubin 0.2 mg/dL (0.15-1.2); Total Protein 7.3 g/dL (6.6-8.7)
--- NOTE | 2020-08-14 19:22 | ECG_ITS ---
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 Measurements Intervals [place] Rate: 87 P: SD: QRS: 72 QRSD: 89 T: 80 QT: 341 QTc: 410 Interpretive Statements ATRIAL FIBRILLATION ABNORMAL RHYTHM ECG Compared to ECG 08/14/2020 17:09:01 Ventricular premature complex(es) no longer present Aberrant conduction of supraventricular beat(s) no longer present Electronically Signed On 08-14-2020 19:25:14 NEEDLE BOARD REPAIRER by Yury Fernandez M.D. [email or web address] sunflower county hospitalPinnattaselect medical [facility] [place].[facility]/store/OM/[id number]
[2020-08-14 19:33] LABS: Lipase 22 U/L (13-60)
[2020-08-14] MEDS: morphine 4 mg/mL SDV 1 mL 2 MG IVP (19:36)
[2020-08-14] MEDS: sodium chloride 0.9% 1,000 ML 999 ML IV (19:36)
[2020-08-14] MEDS: ondansetron 2 mg/ML SDV 2 mL 4 MG IVP (19:36)
[2020-08-14 20:01] LABS: Reflex Lactate Order REFLEX LACTIC ORDERD
[2020-08-14 21:17] LABS: Lactic Acid level (Lactate) 2.1 mmol/L (0.5-2.2)
[2020-08-14 21:18] LABS: Troponin 5 2HR 28.47 ng/L (0-15)
[2020-08-14 21:19] LABS: Troponin 5 2HR Delta -2.53 ABS# (0-10)
[2020-08-14 21:50] VITALS: BP 148/75; PULSE 88; RESP 18; O2SAT 91
[2020-08-15 18:59] LABS: Coronavirus Test Green County Not Detected
--- NOTE | 2020-08-16 09:12 | PC.NURSE ---
Pt called and notified of negative COVID result.
== END 2020-08-14 21:51 | disposition home or self-care (01) ==
PROVIDERS: Emergency Provider Family Medicine; PCP Family Medicine
DX: J18.9 Pneumonia, unspecified organism (principal); F10.920 Alcohol use, unspecified with intoxication, uncomplicated; Z79.01 Long term (current) use of anticoagulants; I48.91 Unspecified atrial fibrillation; Z85.51 Personal history of malignant neoplasm of bladder; J44.9 Chronic obstructive pulmonary disease, unspecified; Z85.46 Personal history of malignant neoplasm of prostate; E78.5 Hyperlipidemia, unspecified; I10 Essential (primary) hypertension; Z87.891 Personal history of nicotine dependence; Y90.7 Blood alcohol level of 200-239 mg/100 ml
CPT/HCPCS: 36600; 71045; 80053; 80307; 82803; 83605; 83615; 83690; 83880; 84145; 84484; 85025; 85378; 86140; 87040; 87426; 87635; 87804; 93005; 96365; 96375; 99284; J0696; J2270; J2405; J7030

== ENCOUNTER 2020-09-09 23:23 | Observation (INO) | payer MEDICARE, MEDICAID, SELFPAY ==
[2020-09-09 23:24] VITALS: BP 133/84; PULSE 127; RESP 21; TEMP 36.7; O2SAT 90; BMI 29.0
--- NOTE | 2020-09-09 23:28 | XR_ITS ---
WS: [id number] Portable AP upright chest, 09/09/2020 Clinical Data: sob Comparison: Portable chest, 08/14/2020. Findings: No nodules, masses or effusions are seen. The heart is normal. The pulmonary vascularity is not increased. No pneumonia or pneumothorax is seen. There is minimal atelectasis over the lateral a spect of the left diaphragm. The aortic arch and descending aorta show calcification and tortuosity. Monitor leads are on the chest wall. XR/XR chest 1V portable [id number] Impression: 1. Probable atelectasis over surface of left diaphragm. 2. Atherosclerosis.
--- NOTE | 2020-09-09 23:28 | ECG_ITS ---
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 Measurements Intervals [place] Rate: 123 P: CT: QRS: -16 QRSD: 93 T: 78 QT: 285 QTc: 408 Interpretive Statements ATRIAL FIBRILLATION WITH RAPID VENTRICULAR RESPONSE MINIMAL ST DEPRESSION [0.025+ mV ST DEPRESSION] ABNORMAL RHYTHM ECG Compared to ECG 08/14/2020 19:21:15 ST (T wave) deviation now present Electronically Signed On 09-10-2020 17:23:02 CDT by Marita Ansari M.D. [id number]
--- NOTE | 2020-09-09 23:30 | W.ED.SOB ---
HPI - SOB/Dyspnea General: Chief Complaint: Shortness of Breath/Dyspnea Stated Complaint: RESP DISTRESS Time Seen by Provider: 09/09/20 23:24 Source: patient Mode of arrival: ambulatory Limitations: no limitations History of Present Illness: HPI Narrative: 75-year-old male has a history of A. fib along with congestive heart failure and COPD states he been having increasing shortness of breath the last 2 days. He states he has not been taking his Lasix as he has been drinking alcohol. He does have a history of alcoholism. He is in A. fib with RVR here. Patient was 90% room air with EMS. He is currently on 2 L. He has had a cough denies any fever. Does have some wheezing. Associated symptoms: Reports palpitations; Deny abdominal pain, fever(s), nausea or vomiting Review of Systems Const: Denies: fever(s), chills, body aches or change in appetite Eyes: Denies: blurry vision or eye discomfort ENMT: Denies: throat pain or dental pain Card: Reports: palpitations Resp: Reports: dyspnea GI: Denies: abdominal pain, nausea, vomiting or diarrhea : Denies: dysuria Musc: Denies: neck pain or back pain Skin/Breast: Denies: rash Neuro: Denies: headache(s) Psych: Denies: depression Geovanni/Lymph: Denies: easy bruising All/Imm: Denies: urticaria PFSH ED PFSH: Medical History Anxiety and depression Atrial fibrillation Bladder cancer Chronic anticoagulation COPD (chronic obstructive pulmonary disease) Cystitis cystica Genital lesion, male History of prostate cancer Hyperlipidemia Hypertension Iron deficiency anemia Left atrial enlargement 4.9 cm width Mitral regurgitation Peripheral vascular disease of extremity Renal calculi Surgical History H/O esophagogastroduodenoscopy H/O eye surgery H/O eye surgery detached retina left eye History of colonoscopy (~2004) History of laparotomy History of lithotripsy History of ureter stent Family History Mother , at age 94 Hypertension Heart disease Father , at age 72 Renal disease Heart disease Brother Heart disease Other CAD (coronary artery disease) Cancer Denies family history of Anesthesia complication Bleeding disorder Social History Smoking and tobacco status: former smoker Quit status (tobacco): has quit using tobacco Year quit tobacco: 2020 - 1PPD x 50 Years Second hand smoke exposure: Yes Smoking risk assessment/counseling performed?: No Alcohol intake: former Year of sobriety/quit date alcohol: 2019 Desire information about alcohol rehabilitation?: No Counseling given: No Adopted: No Caregiver/support person: No Lives independently: Yes Household members: none Marital status: Single Current occupational status: retired History of recent travel: No Current gender identity: Male Physical Exam Const: COMMON NORMALS: no acute distress, patient oriented x3 and healthy appearing HENMT: COMMON NORMALS: normocephalic and atraumatic HEAD & SCALP: normocephalic and atraumatic Eye: COMMON NORMALS: Equal, round and reactive pupils present and EOMs intact bilaterally PUPIL: Yes Equal, round and reactive pupils present Neck/C-Spine: COMMON NORMALS: full ROM and supple Chest: COMMONS NORMALS: normal inspection of the chest and normal palpation of entire chest wall Resp: COMMON NORMALS: normal respiratory effort, No retractions, No use of accessory muscles and clear to auscultation bilaterally AUSCULTATION: clear to auscultation bilaterally Cardio: COMMON NORMALS: No murmurs present (Cardio) RATE: tachycardic RHYTHM: abnormal rhythm irregularly irregular GI: COMMON NORMALS: Normal to inspection, nondistended, normoactive bowel sounds present, Soft to palpation, non-tender and no masses PALPATION: Yes Soft to palpation Extremity: COMMON NORMALS: normal to inspection and full ROM NARRATIVE EXTREMITY EXAM: 2+ edema to le Neuro: COMMON NORMALS: patient oriented x3, moves all extremities and no focal motor deficits Psych: COMMON NORMALS: mental status grossly normal, Normal thought process present and cooperative THOUGHT PROCESS: Normal thought process present Skin: COMMON NORMALS: no rashes or lesions noted and no wounds GENERAL SKIN EXAM: no rashes or lesions noted Course Vital Signs: Vital signs: Vital Signs Temperature 98.1 F 09/09/20 23:24 Pulse Rate 113 H 09/10/20 02:00 Respiratory Rate 19 H 09/10/20 02:00 Blood Pressure 120/86 09/10/20 02:00 Pulse Oximetry 95 09/10/20 02:00 MDM - SOB/Dyspnea MDM Narrative: Medical decision making narrative: Patient presents with A. fib with RVR and continue to have A. fib after Cardizem boluses. Patient was started on a Cardizem drip. As of COPD exacerbation with no signs of pneumonia. He is intoxicated as well. I spoke to hospitalist will admit on Cardizem drip. Lab Data: Labs: Lab Results 09/09/20 09/09/20 09/09/20 Range/Units 22:55 22:55 22:55 WBC 9.7 (4.0-10.0) 10^3/ uL RBC 5.18 (4.1-5.3) 10^6/u L Hgb 14.8 (11.7-16.6) g/dL Hct 46.4 (42.0-52.0) % MCV 89.6 (80-94) fL MCH 28.6 (28.0-34.0) pg MCHC 31.9 (30.0-36.0) g/dL RDW 14.9 (12.1-15.1) % Plt Count 309 (130-400) 10^3/c mm MPV 9.7 (7.4-10.4) fL Neut % (Auto) 58.8 % Lymph % (Auto) 30.1 % Orange % (Auto) 6.7 % Eos % (Auto) 3.1 % Baso % (Auto) 0.8 % Neut # (Auto) 5.69 (1.8-7.7) 10^3/u L Lymph # (Auto) 2.9 (0.8-4.8) 10^3/u L Orange # (Auto) 0.7 (0.2-0.9) 10^3/u L Eos # (Auto) 0.3 (0.0-0.8) 10^3/u L Baso # (Auto) 0.1 (0.0-0.1) 10^3/u L Nucleated RBC % (a uto) 0 % Nucleated RBCs # 0.0 /100WBC PT 13.90 (12.1-14.9) SECO NDS INR 1.04 (0.8-1.2) Sodium 139 (136-145) mmol/L Potassium 2.9 L (3.5-5.1) mmol/L Chloride 102 (98-107) mmol/L Carbon Dioxide 21 L (22-29) mmol/L Anion Gap 18.9 (5-19) BUN 13 (8-23) mg/dL Creatinine 0.8 (0.7-1.2) mg/dL GFR Calculation Not Reportable Glucose 123 H (65-115) mg/dL Calculated Osmolal ity 289 (285-295) mOsm/k g Calcium 8.8 (8.5-10.5) mg/dL Magnesium (1.7-2.3) mg/dL Total Bilirubin 0.2 (0.15-1.2) mg/dL AST 39 (0-40) U/L ALT 33 (0-41) U/L Alkaline Phosphata se 207 H (40-130) IU/L NT-Pro-B Natriuret Pep 241 H (0-125) pg/mL Total Protein 7.0 (6.6-8.7) g/dL Albumin 3.8 (3.5-5.2) g/dL Globulin 3.2 (1.3-4.6) g/dL TSH (0.27-4.20) uIU/ mL Ethyl Alcohol 241 H (0-10) mg/dL 09/09/20 Range/Units 22:55 WBC (4.0-10.0) 10^3/ uL RBC (4.1-5.3) 10^6/u L Hgb (11.7-16.6) g/dL Hct (42.0-52.0) % MCV (80-94) fL MCH (28.0-34.0) pg MCHC (30.0-36.0) g/dL RDW (12.1-15.1) % Plt Count (130-400) 10^3/c mm MPV (7.4-10.4) fL Neut % (Auto) % Lymph % (Auto) % Orange % (Auto) % Eos % (Auto) % Baso % (Auto) % Neut # (Auto) (1.8-7.7) 10^3/u L Lymph # (Auto) (0.8-4.8) 10^3/u L Orange # (Auto) (0.2-0.9) 10^3/u L Eos # (Auto) (0.0-0.8) 10^3/u L Baso # (Auto) (0.0-0.1) 10^3/u L Nucleated RBC % (a uto) % Nucleated RBCs # /100WBC PT (12.1-14.9) SECO NDS INR (0.8-1.2) Sodium (136-145) mmol/L Potassium (3.5-5.1) mmol/L Chloride (98-107) mmol/L Carbon Dioxide (22-29) mmol/L Anion Gap (5-19) BUN (8-23) mg/dL Creatinine (0.7-1.2) mg/dL GFR Calculation Glucose (65-115) mg/dL Calculated Osmolal ity (285-295) mOsm/k g Calcium (8.5-10.5) mg/dL Magnesium 1.7 (1.7-2.3) mg/dL Total Bilirubin (0.15-1.2) mg/dL AST (0-40) U/L ALT (0-41) U/L Alkaline Phosphata se (40-130) IU/L NT-Pro-B Natriuret Pep (0-125) pg/mL Total Protein (6.6-8.7) g/dL Albumin (3.5-5.2) g/dL Globulin (1.3-4.6) g/dL TSH 2.45 (0.27-4.20) uIU/ mL Ethyl Alcohol (0-10) mg/dL EKG Data^: EKG 1: Attestation: I personally reviewed and interpreted this EKG as follows: EKG Interpretation Date: 09/09/20 EKG interpretation time: 23:29 Interpretation: afib hr [address] or t wave abnormalities Discharge Plan Discharge Patient Disposition: Admitted As Inpatient Admit Provider: Dionne Boudreaux Clinical Impression: COPD (chronic obstructive pulmonary disease), Atrial fibrillation, Alcohol intoxication Condition: Stable Coding Level of Care Code ED Hair Dresser for Chg Fwd Exam Comprehensive
[2020-09-09 23:32] VITALS: BP 125/77; PULSE 126; RESP 21; O2SAT 96
[2020-09-09 23:33] VITALS: PULSE 123
[2020-09-09 23:34] LABS: Basophils # 0.1 10^3/uL (0.0-0.1); Basophils % 0.8 %; Eosinophils # 0.3 10^3/uL (0.0-0.8); Eosinophils % 3.1 %; Hematocrit 46.4 % (42.0-52.0); Hemoglobin 14.8 g/dL (11.7-16.6); Lymphocytes # 2.9 10^3/uL (0.8-4.8); Lymphocytes % 30.1 %; Mean Corpuscular HGB Conc 31.9 g/dL (30.0-36.0); Mean Corpuscular Hemoglobin 28.6 pg (28.0-34.0); Mean Corpuscular Volume 89.6 fL (80-94); Mean Platelet Volume 9.7 fL (7.4-10.4); Monocytes # 0.7 10^3/uL (0.2-0.9); Monocytes % 6.7 %; Neutrophils # 5.69 10^3/uL (1.8-7.7); Neutrophils % 58.8 %; Nucleated Red Blood Cells % 0 %; Platelet Count 309 10^3/cmm (130-400); Red Blood Count 5.18 10^6/uL (4.1-5.3); Red Cell Distribution Width 14.9 % (12.1-15.1); White Blood Count 9.7 10^3/uL (4.0-10.0)
[2020-09-09] MEDS: FUROsemide 10 mg/mL SDV 10mL 60 MG IVP (23:36)
[2020-09-09 23:43] LABS: INR 1.04 (0.8-1.2)
--- NOTE | 2020-09-09 23:48 | PC.NURSE ---
pt is having visual hallucinations on arrival to the ED. Leighann LINK aware. pt points to an empty chair in the ER room and reports that he sees a woman sitting there.
[2020-09-09 23:55] VITALS: PULSE 132; RESP 19; O2SAT 98
[2020-09-09] MEDS: ipratropium-albuterol 3 mL Neb INHALATION (23:55)
[2020-09-10] VITALS (29 sets, daily range): BP systolic 104–168; BP diastolic 63–105; PULSE 73–122; RESP 17–54; TEMP 36.6–37.1; O2SAT 89–97
[2020-09-10 00:04] LABS: Alanine Aminotransferase 33 U/L (0-41); Albumin Level 3.8 g/dL (3.5-5.2); Alcohol Level 241 mg/dL (0-10); Alkaline Phosphatase 207 IU/L (40-130); Anion Gap 18.9 (5-19); Aspartate Amino Transferase 39 U/L (0-40); Blood Urea Nitrogen 13 mg/dL (8-23); Calcium 8.8 mg/dL (8.5-10.5); Carbon Dioxide 21 mmol/L (22-29); Chloride 102 mmol/L (98-107); Globulin 3.2 g/dL (1.3-4.6); Glucose 123 mg/dL (65-115); NT Pro B Type Natriuretic Pept 241 pg/mL (0-125); Osmolality Calculated 289 mOsm/kg (285-295); Sodium 139 mmol/L (136-145); Total Bilirubin 0.2 mg/dL (0.15-1.2)
[2020-09-10 00:08] LABS: Potassium 2.9 mmol/L (3.5-5.1)
--- NOTE | 2020-09-10 00:53 | PC.NURSE ---
patient report received from LIZET Cross and care transferred to LIZET Guevara
[2020-09-10] MEDS: potassium chloride ER 20 mEq Tablet 40 MEQ PO ×2 (01:07→10:00)
--- NOTE | 2020-09-10 01:39 | P.HP_ITS ---
Providers/Chief Complaint Primary Care Provider: Randolph Carlson MD Chief Complaint: RESP DISTRESS History of Present Illness Damien Stringer is a 75 year old male who has history of alcohol abuse, was intubated in June for respiratory distress secondary to COPD exacerbation, pneumonia, sputum culture grew Pseudomonas, he was discharged home on Levaquin, for CHF exacerbation he was diuresed with Bumex MRSA PCR was negative, EF 60% moderate to severe mitral regurgitation, he also has history of sleep apnea, his pulmonary function test in July revealed combined obstructive and restrictive pulmonary disease, he follows up with Dr. 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 Patient is stating that his symptoms started yesterday with shortness of breath and palpitation. At baseline he drinks 36 bottles of whiskey which are small 10 mL bottles. Last night he started experiencing shortness of breath at rest with palpitations, his symptoms worsened in next 24 hours, is also noticing productive cough and bringing dark sputum and he has also noticed some blood in his sputum as well, no fever, he is also endorsing frequent chest pain whenever he is tachypneic, chest pain is not reproducible, and it would only begin with higher respiratory rate. He does not smoke or use any other drugs, he is compliant with his Bumex for CHF. He lives alone and uses cane for ambulation at home. He is due to get his CPAP on this month. Diagnostics in the ER revealed normal hemodynamics, normal CBC, hypokalemia I have requested mag level, he was saturating well on room air when I saw him however he was put on 2 L before my evaluation, when I saw him his nasal cannula was below his chin, potassium has been repleted chest x-ray shows resolution of previous pneumonia I do not see any new infiltrates, clinically he has mild s igns of fluid overload, alcohol level 241, A. fib with acute RVR Cardizem IV push did not decrease his heart rate he was put on Cardizem drip it was running at 10 mg/h at the time of my evaluation he was denying chest pain or respiratory distress. He was also given 60 mg of IV Lasix along methylprednisone and albuterol treatment Review of Systems Const: Denies: fever(s) Eyes: Denies: change in vision ENMT: Denies: throat pain Card: Reports: chest pain, palpitations, edema, dyspnea on exertion and orthopnea Resp: Reports: dyspnea, productive cough and pain on inspiration GI: Denies: abdominal pain : Denies: flank pain Musc: Denies: neck pain Skin/Breast: Denies: rash Neuro: Denies: headache(s) Psych: Reports: anxiety Endo: Denies: polyuria Geovanni/Lymph: Denies: easy bruising All/Imm: Denies: urticaria Medications/Allergies Home Medications Medication Instructions Recorded Confirmed Last Taken Type Eliquis 5 mg PO BID@06,18 07/20/19 08/14/20 08/14/20 History Spiriva Respimat 1 puff INHALATION BID@0600,1800 07/20/19 08/14/20 08/14/20 History fluticasone propionate [Flonase 1 spray INTRANASAL BID PRN 07/20/19 08/14/20 08/14/20 History Allergy Relief] isosorbide mononitrate 20 mg PO BID@,18 07/20/19 08/14/20 08/14/20 History pravastatin [Pravachol] 40 mg PO DAILY@18 07/20/19 08/14/20 08/13/20 History tamsulosin [Flomax] 0.4 mg PO DAILY@07/20/19 08/14/20 08/14/20 History ferrous sulfate [iron] 325 mg PO DAILY@10/27/19 08/14/20 08/14/20 History mirtazapine 30 mg PO DAILY@10/27/19 08/14/20 08/13/20 History ropinirole 3 mg PO DAILY@10/27/19 08/14/20 08/13/20 History ascorbate calcium (vitamin C) 500 1 gm PO BID@,18 tab 11/05/19 08/14/20 06/23/20 18:00 History mg tablet cilostazol 50 mg PO BID@,18 12/02/19 08/14/20 08/14/20 History albuterol sulfate 2.5 mg INHALATION Q6H PRN 05/21/20 08/14/20 08/14/20 History buspirone 10 mg PO BID@,06/02/20 08/14/2008/14/21 History pantoprazole [Protonix] 40 mg PO DAILY@06/02/20 08/14/20 08/14/20 History thiamine mononitrate (vit B1) 100 mg PO DAILY@06/02/20 08/14/20 08/14/20 Hist ory [Vitamin B-1 (mononitrate)] albuterol sulfate 2 inh INHALATION BID PRN 06/24/20 08/14/20 08/14/20 History metoprolol tartrate 25 mg tablet 50 mg PO Q12H tab 07/13/20 08/14/20 08/14/20 H istory zolpidem 10 mg tablet 10 mg PO BEDTIME@199908/03/20 08/14/20 Unknown History bumetanide 1 mg tablet 1 mg PO DAILY@0600 08/04/20 08/14/20 08/14/20 History ciprofloxacin HCl 500 mg tablet 500 mg PO BID #60 tab 08/07/20 08/14/20 08/14/20 Rx Advair Diskus 1 puff INHALATION BID@0600,1800 08/14/20 08/14/20 08/14/20 History Chantix Continuing Month Box 1 mg PO DAILY@0600 08/14/20 08/14/20 08/14/20 History DILT-XR 180 mg PO DAILY@0600 08/14/20 08/14/20 08/14/20 History azithromycin See Rx Instructions .ROUTE 08/14/20 Unknown Rx .COMPLEX #6 tab potassium chloride 10 meq PO DAILY@0600 08/14/20 08/14/20 08/14/20 History Allergies Allergy/AdvReac Type Severity Reaction Status Date / Time No Known Allergies Allergy Verified 09/09/20 23:32 PFSH Acute PFSH: Medical History Anxiety and depression Atrial fibrillation Bladder cancer Chronic anticoagulation COPD (chronic obstructive pulmonary disease) Cystitis cystica Genital lesion, male History of prostate cancer Hyperlipidemia Hypertension Iron deficiency anemia Left atrial enlargement 4.9 cm width Mitral regurgitation Peripheral vascular disease of extremity Renal calculi Surgical History H/O esophagogastroduodenoscopy H/O eye surgery H/O eye surgery detached retina left eye History of colonoscopy (~2004) History of laparotomy History of lithotripsy History of ureter stent Family History Mother , at age 94 Hypertension Heart disease Father , at age 72 Renal disease Heart disease Brother Heart disease Other CAD (coronary artery disease) Cancer Denies family history of Anesthesia complication Bleeding disorder Social History Smoking and tobacco status: former smoker Quit status (tobacco): has quit using tobacco Year quit tobacco: 2019 - 1PPD x 50 Years Second hand smoke exposure: Yes Smoking risk assessment/counseling performed?: No Alcohol intake: former Year of sobriety/quit date alcohol: 2019 Desire information about alcohol rehabilitation?: No Counseling given: No Adopted: No Caregiver/support person: No Lives independently: Yes Household members: none Marital status: Single Current occupational status: retired History of recent travel: No Current gender identity: Male Vitals/I&O/Wt Last Vital Signs Temp 98.1 F 09/09/20 23:24 Pulse 112 H 09/10/20 01:21 Resp 18 09/10/20 01:09 BP 137/93 09/10/20 01:09 Pulse Ox 95 09/10/20 01:21 Weight last 48 hrs Weight 107.955 kg Physical Exam Narrative: EXAM NARRATIVE: elderly male who appears stated age was saturating well on room air nasal cannula was below his chin he was saturating 95% no active chest pain or history of distress He was awake alert oriented x3 GCS 15 No neurological deficits Lower extremity 2+ pitting edema bilaterally No signs of cellulitis Variable S1-S2, could not appreciate murmur Bilateral breath sounds with expiratory wheezing Abdomen distended central obesity soft nontender no guarding or rigidity No joint swelling Appropriate mood and affect No signs of active alcohol withdrawal Data : 09/09/20 22:55 09/09/20 22:55 A&P Assessment and plan (1) Dyspnea: Status: Acute (2) Atrial fibrillation: Status: Acute Qualifiers: Atrial fibrillation type: unspecified Qualified Code(s): I48.91 - Unspecified atrial fibrillation (3) Alcohol intoxication: Status: Acute (4) Obstructive sleep apnea: Status: Acute Additional A&P Information Dyspnea secondary to A. fib RVR Chest x-ray reveals improvement in infiltrates as compared to previous x-ray He is afebrile, no leukocytosis I do believe his symptoms are secondary to acute onset RVR with A. fib Doubt PE at this point he takes Eliquis at home Will request ABG, currently he is saturating well on room air, Patient endorsed hemoptysis, small quantity, he is on Eliquis with stable hemo globin, my suspicion is also high for viral bronchitis I would avoid adding antibiotics, in case of persistent hemoptysis would recommend outpatient follow- up with Dr. Keeen who read his pulmonary function test as well, previous CTA chest does reveal enlarged left paratracheal lymph nodes, will need close follow-up, malignancy has not been ruled out A. fib acute RVR Left atrial diameter 6.7 cm Received Cardizem IV push which did not improve his heart rate, currently on Cardizem drip 10 mg/h Continue Eliquis I would resume his metoprolol and Cardizem tomorrow morning after titrating off Cardizem drip Etiology of acute onset RVR is alcohol intoxication We will check magnesium level, hypokalemia repleted Hypokalemia: Repleted, check magnesium level Alcohol intoxication He drinks whiskey 36, 10 mL bottles every day CIWA protocol no acute withdrawal signs Sleep apnea: Patient is stating that he is awaiting approval of CPAP on of this month Hematuria Patient endorsed blood in his urine past history of bladder cancer He follows up with Dr. Sheth Would recommend outpatient follow-up, hemoglobin stable 14.8 I will continue Eliquis for now Cardiac diet DVT prophylaxis not needed currently on Eliquis Full code Attestations 2 Medical Necessity Statement*: Anticipating discharge in less than 48 hours continued Cardizem gtt. for A. fib RVR with symptoms Time Spent in Patient Care: (>than 50% of time spent in counselling and/or direct pt care on unit) . 40mins Coding Level of Care Code Acute Italian Lecturer for Chg Fwd Diagnoses Dyspnea R06.00 Atrial fibrillation I48.91 Atrial fibrillation type: unspecified Alcohol intoxication F10.929 Obstructive sleep apnea G47.33
[2020-09-10 02:04] LABS: Magnesium 1.7 mg/dL (1.7-2.3); Thyroid Stimulating Hormone 2.45 uIU/mL (0.27-4.20)
--- NOTE | 2020-09-10 02:36 | PC.NURSE ---
Addendum entered by Wanda Gross RN 09/10/20 02:40: Patient does not have medications or list with him. Unable to verify home medications at this time. Original Note: Patient arrived to the floor from the ED after report was received via phone. Patient is alert and oriented and on room air. Patient is in A-fib with cardizem drip running. Patient has been oriented to his room and has call light within reach.
--- NOTE | 2020-09-10 02:43 | PC.NURSE ---
Verified IV K-rider dose with Dr. Boudreaux per telephone. Also notified of patient asking for Requip and order given.
[2020-09-10] MEDS: lidocaine 1% 5 ML in potassium chloride premix 100 ML 25 ML IV (02:55)
[2020-09-10] MEDS: metoprolol tartrate 50 mg Tablet PO ×2 (02:57→16:44)
[2020-09-10] MEDS: ropinirole 1 mg Tablet 3 MG PO ×2 (02:57→18:11)
[2020-09-10] MEDS: LORazepam 2 mg Tablet PO (03:54)
[2020-09-10 05:00] LABS: Basophils % 0.3 %; Eosinophils % 0.2 %; Hematocrit 45.8 % (42.0-52.0); Hemoglobin 14.5 g/dL (11.7-16.6); Lymphocytes # 0.7 10^3/uL (0.8-4.8); Mean Corpuscular HGB Conc 31.7 g/dL (30.0-36.0); Mean Corpuscular Hemoglobin 28.3 pg (28.0-34.0); Mean Corpuscular Volume 89.5 fL (80-94); Mean Platelet Volume 9.5 fL (7.4-10.4); Monocytes # 0.1 10^3/uL (0.2-0.9); Monocytes % 0.8 %; Neutrophils % 87.1 %; Nucleated Red Blood Cells % 0 %; Platelet Count 284 10^3/cmm (130-400); Red Blood Count 5.12 10^6/uL (4.1-5.3); Red Cell Distribution Width 14.9 % (12.1-15.1); White Blood Count 6.2 10^3/uL (4.0-10.0)
[2020-09-10 05:25] LABS: Anion Gap 18.7 (5-19); Blood Urea Nitrogen 12 mg/dL (8-23); Calcium 8.7 mg/dL (8.5-10.5); Carbon Dioxide 23 mmol/L (22-29); Chloride 100 mmol/L (98-107); Glucose 189 mg/dL (65-115); Osmolality Calculated 291 mOsm/kg (285-295); Potassium 3.7 mmol/L (3.5-5.1); Slide Review Slide Review Perform; Sodium 138 mmol/L (136-145)
[2020-09-10 05:32] LABS: ABG PH Result 7.39 (7.35-7.45); Arterial Blood Gas Hematocrit 46.8 % (42-52); Base Excess ABG -2.1 mmol/L (-2.0-2.0); Blood Gas Allen Test Pos; Blood Gas Operator Identificat HARKR; Blood Gas Sample Site Heel, right; Blood Gas Sample Type Arterial; HCO3 ABG 22.4 mmol/L (22-26); Oxygen Device ROOM AIR; PO2 ABG 73.5 mmHg (80.0-100.0)
[2020-09-10] MEDS: bumetanide 1 mg Tablet PO (06:16)
[2020-09-10] MEDS: pantoprazole DR 40 mg Tablet PO (06:16)
[2020-09-10] MEDS: isosorbide mononitrate 20 mg Tablet PO ×2 (06:16→18:10)
[2020-09-10] MEDS: apixaban 5 mg Tablet PO ×2 (06:16→18:10)
[2020-09-10] MEDS: dilTIAZem ER (24HR) 180 mg Capsule PO (06:16)
[2020-09-10] MEDS: tamsulosin 0.4 mg Capsule PO (06:16)
--- NOTE | 2020-09-10 07:55 | PC.NURSE ---
Pt lying in bed resting with eyes open talking to staff. Resp even and non-labored no distress noted. Pt had no c/o pain or discomfort at the present time. Call light in reach. No needs voiced.
--- NOTE | 2020-09-10 08:57 | PC.NURSE ---
pt wants papito ronquillo
[2020-09-10] MEDS: ipratropium-albuterol 3 mL Neb INHALATION ×3 (09:21→21:57)
[2020-09-10] MEDS: thiamine 100 mg Tablet PO (10:00)
[2020-09-10] MEDS: folic acid 1 mg Tablet PO (10:00)
[2020-09-10] MEDS: multivitamin therapeutic Tablet 1 TAB PO (10:00)
--- NOTE | 2020-09-10 10:37 | PC.CHAP ---
Pastoral Care Encounter/Spiritual Assessment Type of Contact [] Declined vacuum system tester visit [] Patient/Family/Request visit [] Outpatient visit [] Follow-up visit [] Physician referral [] Code/Alert [x] Routine visit [] Staff referral [] Actively dying [] Patient sleeping [] Family support [] [] Out of room [] Palliative care [] [xx] Receiving care in room [] Pre-surgical visit [] Trauma [x] Long length of stay [] ICU visit [] Other: Relational/Emotional Strength [] Patient feels connected with others/family/visitors/staff [x] Distress [] Loneliness/isolation [] Abandonment Spirituality of Patient [x] Person of Brandi [] Attends Presybeterian of their Brandi [x] Believes in Prayer [] Reads Bible or Zoroastrian materials [] There are Spiritual issues to be addressed Tower Dragline Operator Interventions [x] Prayer [x] Active listening [x] Non-anxious presence [x] Spiritual/emotional support [] Crisis/trauma care [x] Spiritual counseling [] Bereavement support [] Provided bereavement packet [] Provided Bible/devotional materials [] Provided toy/stuffed animal, coloring book to patient or family member [] Provided Communion [] Anointing/[place] [] Salvation [x] Completed spiritual assessment [] Other: Impact on Illness or Injury [] Angry [x] Fearful [] Anxious [] Often cries [] Exhaustion [x] Unable to work [] Unable to attend hoahaoism [] Unable to walk/stand [] Unable to read [] Unable to drive [] Unable to eat/drink [] Unable to sleep [] Unable to be with family [] Patient intubated [] Other: Summary dealing with the heart problems,has a good attitude, not sure when he will be able to home, Time spent with patient 10 mins
--- NOTE | 2020-09-10 15:59 | P.PN_ITS ---
Subjective Subjective: Interval history: Patient reports feeling better today. Denies chest pain or palpitations. No tremors. No shortness of breath. Denies nausea or vomiting. Reports streaks of blood in the mucus. Reports chronic cough. Medications: Reviewed: Yes Medication Review Details: Generic Name Dose Route Start Last Admin Trade Name Freq PRN Reason Stop Dose Admin Albuterol/Ipratrop ium 3 ml 09/10/20 01:56 09/10/20 09:21 Ipratropium-Albu terol 3 Ml Neb INHALATION 3 ml Q6H PRN Administration SHORTNESS OF CINTHYA TH Apixaban 5 mg 09/10/20 06:00 09/10/20 06:16 Apixaban 5 Mg Ta blet PO 5 mg BID@ NIKHIL Administration Bumetanide 1 mg 09/10/20 06:00 09/10/20 06:16 Bumetanide 1 Mg Tablet PO 1 mg DAILY@0600 NIKHIL Administration Diltiazem HCl 180 mg 09/10/20 06:00 09/10/20 06:16 Diltiazem Er (24 hr) 180 Mg Capsule PO 180 mg DAILY@0600 NIKHIL Administration Folic Acid 1 mg 09/10/20 09:00 09/10/20 10:00 Folic Acid 1 Mg Tablet PO 1 mg DAILY NIKHIL Administration Diltiazem HCl 125 mg/ Sodium 125 mls @ 10 mls/ hr 09/10/20 01:30 09/10/20 07:23 Chloride IV 0 mg/hr .[id number] NIKHIL 0 mls/hr Infusion 10 MG/HR Isosorbide Mononit rate 20 mg 09/10/20 06:00 09/10/20 06:16 Isosorbide [place] itrate 20 Mg Table t PO 20 mg BID@ NIKHIL Administration Lorazepam 2 mg 09/10/20 01:56 09/10/20 03:54 Lorazepam 2 Mg T ablet PO 2 mg PROTOCOL PRN Administration WITHDRAWAL Protocol Metoprolol Tartrat e 50 mg 09/10/20 02:00 09/10/20 02:57 Metoprolol Tartr ate 50 Mg Tablet PO 50 mg Q12H NIKHIL Administration Multivitamins Ther apeutic 1 tab 09/10/20 09:00 09/10/20 10:00 Multivitamin The rapeutic Tablet PO 1 tab DAILY NIKHIL Administration Pantoprazole Sodiu m 40 mg 09/10/20 06:00 09/10/20 06:[address] 40 Mg Tablet PO 40 mg DAILY@06 NIKHIL Administration Potassium Chloride 40 meq 09/10/20 09:00 09/10/20 10:00 Potassium Chlori de Er 20 Meq Table t PO 40 meq DAILY NIKHIL Administration Tamsulosin HCl 0.4 mg 09/10/20 06:00 09/10/20 06:16 Tamsulosin 0.4 M g Capsule PO 0.4 mg DAILY@06 NIKHIL Administration Thiamine Mononitra te 100 mg 09/10/20 09:00 09/10/20 10:00 Thiamine 100 Mg Tablet PO 100 mg DAILY NIKHIL Administration Vitals/I&O/Wt Last Vital Signs Temp 97.9 F 09/10/20 15:00 Pulse 111 H 09/10/20 15:00 Resp 19 H 09/10/20 15:00 BP 168/101 09/10/20 15:00 Pulse Ox 90 09/10/20 15:00 09/10/20 09/10/20 09/10/20 06:59 14:59 22:59 Intake Total 755.667 / 755.667 710.583 / 710.583 Output Total 300 / 300 400 / 400 Balance 455.667 / 455.667 310.583 / 310.583 Weight last 48 hrs Weight 107.955 kg Physical Exam Narrative: EXAM NARRATIVE: Awake alert oriented. No acute distress. Mood and affect are appropriate. Responses are adequate. Skin is warm and dry. Moist mucous nares Neck supple. No JVD Normal speech Eyes PERRL, extraocular muscles are intact Heart S1, S2, irregular Abdomen soft, nontender, bowel sounds are present Lungs bilateral diffuse wheezes. No respiratory distress Extremities. No calf tenderness, no tremors, no peripheral cyanosis. No focal weakness. Data : 09/10/20 04:18 09/10/20 04:18 A&P Assessment and plan (1) Dyspnea: Status: Acute (2) Atrial fibrillation: Status: Acute Qualifiers: Atrial fibrillation type: unspecified Qualified Code(s): I48.91 - Unspecified atrial fibrillation (3) Alcohol intoxication: Status: Acute (4) Obstructive sleep apnea: Status: Acute Additional A&P Information Dyspnea secondary to A. fib RVR Chest x-ray reveals improvement in infiltrates as compared to previous x-ray He is afebrile, no leukocytosis I do believe his symptoms are secondary to acute onset RVR with A. fib Doubt PE at this point he takes Eliquis at home Will request ABG, currently he is saturating well on room air, Patient endorsed hemoptysis, small quantity, he is on Eliquis with stable hemoglobin, my suspicion is also high for viral bronchitis I would avoid adding antibiotics, in case of persistent hemoptysis would recommend outpatient follow- up with Dr. Keene who read his pulmonary function test as well, previous CTA chest does reveal enlarged left paratracheal lymph nodes, will need close follow-up, malignancy has not been ruled out A. fib acute RVR Left atrial diameter 6.7 cm Received Cardizem IV push which did not improve his heart rate, currently on Cardizem drip 10 mg/h Continue Eliquis I would resume his metoprolol and Cardizem tomorrow morning after titrating off Cardizem drip Etiology of acute onset RVR is alcohol intoxication We will check magnesium level, hypokalemia repleted Hypokalemia: Repleted, check magnesium level Alcohol intoxication He drinks whiskey 36, 10 mL bottles every day CIWA protocol no acute withdrawal signs Sleep apnea: Patient is stating that he is awaiting approval of CPAP on of this month Hematuria Patient endorsed blood in his urine past history of bladder cancer He follows up with Dr. Sheth Would recommend outpatient follow-up, hemoglobin stable 14.8 I will continue Eliquis for now Cardiac diet DVT prophylaxis not needed currently on Eliquis Full code [place] A. fib with RVR. Most likely due to EtOH intoxication. Currently RVR has resolved. Diltiazem drip is discontinued. The patient is started on p.o. diltiazem. Continuing home Eliquis. History of heavy EtOH use. No evidence of withdrawal symptoms. Continue CIWA protocol and vitamin supplementation. Hemoptysis. Small amount of blood in the mucus when he coughs. He has history of COPD. 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 No changes to medications at this time. History of COPD. No evidence of acute exacerbation at this time. Hypokalemia. Replaced. Continue monitoring. DVT prophylaxis. He is on Eliquis. The plan of care was discussed with the patient. He verbalized understanding and agreement. Attestations Medical Necessity Statement*: Probably discharge tomorrow. The case management will assess his discharge needs. 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
[2020-09-11] VITALS (9 sets, daily range): BP systolic 134–163; BP diastolic 85–106; PULSE 87–104; RESP 14–23; TEMP 36.4–36.8; O2SAT 94–96
[2020-09-11] MEDS: ipratropium-albuterol 3 mL Neb INHALATION ×2 (04:36→07:34)
[2020-09-11 05:02] LABS: Basophils % 0.1 %; Hematocrit 44.3 % (42.0-52.0); Lymphocytes # 1.3 10^3/uL (0.8-4.8); Lymphocytes % 12.5 %; Mean Corpuscular HGB Conc 31.6 g/dL (30.0-36.0); Mean Corpuscular Hemoglobin 28.2 pg (28.0-34.0); Mean Corpuscular Volume 89.3 fL (80-94); Mean Platelet Volume 9.9 fL (7.4-10.4); Monocytes # 0.6 10^3/uL (0.2-0.9); Monocytes % 5.8 %; Nucleated Red Blood Cells % 0 %; Platelet Count 234 10^3/cmm (130-400); Red Blood Count 4.96 10^6/uL (4.1-5.3); Red Cell Distribution Width 14.8 % (12.1-15.1); White Blood Count 10.6 10^3/uL (4.0-10.0)
[2020-09-11] MEDS: metoprolol tartrate 50 mg Tablet PO (05:17)
[2020-09-11] MEDS: dilTIAZem ER (24HR) 180 mg Capsule PO (05:17)
[2020-09-11] MEDS: tamsulosin 0.4 mg Capsule PO (05:18)
[2020-09-11] MEDS: bumetanide 1 mg Tablet PO (05:18)
[2020-09-11] MEDS: apixaban 5 mg Tablet PO (05:18)
[2020-09-11] MEDS: isosorbide mononitrate 20 mg Tablet PO (05:18)
[2020-09-11] MEDS: pantoprazole DR 40 mg Tablet PO (05:18)
[2020-09-11 05:24] LABS: Magnesium 1.7 mg/dL (1.7-2.3)
[2020-09-11 05:25] LABS: Albumin Level 3.8 g/dL (3.5-5.2); Anion Gap 15.6 (5-19); Blood Urea Nitrogen 25 mg/dL (8-23); Calcium 9.9 mg/dL (8.5-10.5); Carbon Dioxide 26 mmol/L (22-29); Chloride 98 mmol/L (98-107); Glucose 136 mg/dL (65-115); Phosphorus 3.7 mg/dL (2.5-4.5); Potassium 4.6 mmol/L (3.5-5.1); Sodium 135 mmol/L (136-145)
--- NOTE | 2020-09-11 07:33 | PC.NURSE ---
Pt sitting up in bed watching tv and talking to staff. Pt resp even and non-labored no distress noted. Pt stated Last night I got real short of breath but i am better now. Pts O2 sat 92% on room air. Pt had no further c/o pain or discomfort. Call light in reach. No needs voiced at the present time. Will continue to monitor.
[2020-09-11] MEDS: potassium chloride ER 20 mEq Tablet 40 MEQ PO (09:46)
[2020-09-11] MEDS: folic acid 1 mg Tablet PO (09:46)
[2020-09-11] MEDS: multivitamin therapeutic Tablet 1 TAB PO (09:46)
[2020-09-11] MEDS: thiamine 100 mg Tablet PO (09:47)
--- NOTE | 2020-09-11 11:03 | PM.DCS ---
Discharge Providers Date of Admission: 09/10/20 01:27 Date of Discharge: September 11, 2020 Attending Provider at Admission: Dionne Boudreaux MD Attending Provider at Discharge: Isidro Dang Primary Care Provider: Randolph Carlson MD Diagnoses at Discharge Discharge Diagnosis (1) Dyspnea: Status: Acute (2) Atrial fibrillation: Status: Acute Qualifiers: Atrial fibrillation type: unspecified Qualified Code(s): I48.91 - Unspecified atrial fibrillation (3) Alcohol intoxication: Status: Acute (4) Obstructive sleep apnea: Status: Acute Reason for Visit Reason for Visit: RESP DISTRESS Hospital Course Hospital Course The patient is a 75-year-old male with past medical history of atrial fibrillation, alcohol abuse, COPD who was admitted for: A. fib with RVR. Most likely due to EtOH intoxication. Currently RVR has resolved. Diltiazem drip is discontinued. The patient is doing well with his home medications and is ready to be discharged home. He denies any active complaints. We will follow-up with his primary care physician and primary emergency management program specialist after discharge. History of heavy EtOH use. No evidence of withdrawal symptoms. The patient states that he is not going to drink anymore. We discussed Librium taper. He promised not to drink and take the medication at the same time. He promised not to drive while he is taking this medication. Alcohol cessation counseling is provided. Hemoptysis. Small amount of blood in the mucus when he coughs. Resolved. He has history of COPD. 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 He verbalized understanding and agreement. History of COPD. No evidence of acute exacerbation at this time. Hypokalemia. Replaced. Continue monitoring. DVT prophylaxis. He is on Eliquis. The plan of care was discussed with the patient. He verbalized understanding and agreement. Physical Exam Narrative: EXAM NARRATIVE: Awake alert oriented. No acute distress. Mood and affect are appropriate. Responses are adequate. Skin is warm and dry. Moist mucous nares Neck supple. No JVD Normal speech Eyes PERRL, extraocular muscles are intact Heart S1, S2, irregular Abdomen soft, nontender, bowel sounds are present Lungs bilateral diffuse wheezes. No respiratory distress Extremities. No calf tenderness, no tremors, no peripheral cyanosis. No focal weakness. Discharge Data Data Completed and Pending: Completed Studies During Hospitalization Category Date Time Status XR chest 1V rebecca ble [id number] Urgent Exams 09/09/20 23:28 Completed Labs from last 24 hours 09/11/20 09/11/20 09/11/20 04:27 04:27 04:27 WBC 10.6 H RBC 4.96 Hgb 14.0 Hct 44.3 MCV 89.3 MCH 28.2 MCHC 31.6 RDW 14.8 Plt Count 234 MPV 9.9 Neut % (Auto) 81.0 Lymph % (Auto) 12.5 [place] % (Auto) 5.8 Eos % (Auto) 0.0 Baso % (Auto) 0.1 Neut # (Auto) 8.60 H Lymph # (Auto) 1.3 [place] # (Auto) 0.6 Eos # (Auto) 0.0 Baso # (Auto) 0.0 Nucleated RBC % (a uto) 0 Nucleated RBCs # 0.0 Sodium 135 L Potassium 4.6 Chloride 98 Carbon Dioxide 26 Anion Gap 15.6 BUN 25 H Creatinine 0.8 GFR Calculation Not Reportable Glucose 136 H Calcium 9.9 Phosphorus 3.7 Magnesium 1.7 Albumin 3.8 Vitals: Last Vital Signs Temp 98.3 F 09/11/20 08:00 Pulse 87 09/11/20 08:00 Resp 23 H 09/11/20 08:00 BP 141/88 09/11/20 08:00 Pulse Ox 94 09/11/20 08:00 Discharge Plan Discharge Patient Disposition: Home Condition: Stable Prescriptions: New folic acid 1 mg Tablet 1 mg PO DAILY Qty: 30 RF: 0 chlordiazepoxide HCl 25 mg capsule 50 mg PO Q8H Qty: 36 RF: 0 Continued ascorbate calcium (vitamin C) 500 mg tablet 1 gm PO BID@,18 RF: 0 albuterol sulfate 2.5 mg /3 mL (0.083 %) solution for nebulization 2.5 mg inhalation Q6H PRN (Reason: Shortness Of Breath) RF: 0 metoprolol tartrate 25 mg tablet 50 mg PO Q12H RF: 0 bumetanide 1 mg tablet 1 mg PO DAILY@0600 RF: 0 ropinirole 3 mg Tablet 3 mg PO DAILY@19 RF: 0 mirtazapine 30 mg Tablet 30 mg PO DAILY@18 RF: 0 ferrous sulfate [iron] 325 mg (65 mg iron) Tablet 325 mg PO DAILY@06 RF: 0 cilostazol 50 mg tablet 50 mg PO BID@,18 RF: 0 pantoprazole [Protonix] 40 mg tablet,delayed release (DR/EC) 40 mg PO DAILY@06 RF: 0 thiamine mononitrate (vit B1) [Vitamin B-1 (mononitrate)] 100 mg tablet 100 mg PO DAILY@06 RF: 0 diltiazem HCl [DILT-XR] 180 mg capsule,ext.rel 24h degradable 360 mg PO DAILY@0600 RF: 0 potassium chloride 10 mEq tablet,ER particles/crystals 10 meq PO DAILY@0600 RF: 0 Chantix Continuing Month Box 1 mg tablet 1 mg PO DAILY@0600 RF: 0 fluticasone propion-salmeterol [Advair Diskus] 250-50 mcg/dose blister with device 1 puff inhalation BID@0600,1800 RF: 0 isosorbide mononitrate 20 mg tablet 20 mg PO BID@,18 RF: 0 pravastatin [Pravachol] 40 mg tablet 40 mg PO DAILY@18 RF: 0 tamsulosin [Flomax] 0.4 mg capsule 0.4 mg PO DAILY@06 RF: 0 fluticasone propionate [Flonase Allergy Relief] 50 mcg/actuation spray,suspension 1 spray INTRANASAL BID PRN (Reason: Allergy Symptoms) RF: 0 Spiriva Respimat 2.5 mcg/actuation mist 1 puff INHALATION BID@0600,1800 RF: 0 Eliquis 5 mg tablet 5 mg PO BID@,18 RF: 0 Hold Instructions: Resume on 04/27/20. albuterol sulfate 90 mcg/actuation HFA aerosol inhaler 2 inh INHALATION BID PRN (Reason: shortness of breath or wheezing) RF: 0 Bactrim DS 800-160 mg Tablet 1 tab PO BID RF: 0 methenamine hippurate 1 gram Tablet 1 g PO BID@18 RF: 0 lisinopril 10 mg Tablet 10 mg PO DAILY RF: 0 buspirone 15 mg Tablet 15 mg PO BID@18 RF: 0 zolpidem 12.5 mg Tablet,Ext Release Multiphase 12.5 mg PO BEDTIME RF: 0 Discharge Orders: Discharge Order (Routine); Ordered 09/11/20 Ordered By: Isidro Dang Referrals: Randolph Carlson MD [Primary Care Provider] - 1 week Dionne Stark MD [Physician] - 1 week Discharge Diet: Cardiac Discharge Activity: Increase activity as tolerated Patient Instructions: Chlordiazepoxide (By mouth), Alcohol Intoxication (DC), Abuse of Alcohol (DC), Alcohol Withdrawal (DC) Activity Restrictions/Additional Instructions: Please come back to emergency room if you develop any new complaints: Chest pain, palpitations, dizziness or lightheadedness, weakness, confusion, tremors, shortness of breath, diaphoresis or any other new complaints. Discharge Attestations Time Spent in Discharge Care*: less than 30 min Status at Discharge: Cognitive status at discharge: cognitively intact, Behavioral status at discharge: cooperative, Quality Metrics Clinical Quality Measures During this hospital stay, did patient experience: None Coding Level of Care Code Acute Chg FW DC note Diagnoses Dyspnea R06.00 Atrial fibrillation I48.91 Atrial fibrillation type: unspecified Alcohol intoxication F10.929 Obstructive sleep apnea G47.33
--- NOTE | 2020-09-11 12:52 | PC.NURSE ---
Pt discharged home. Pts IV removed no redness or swelling noted. Pts discharge instructions given along with prescriptions and follow up appointments. Pt verbalized understanding. Pt had no c/o pain or discomfort at the time of discharge. Pt transferred out via wheel chair accompanied by staff.
== END 2020-09-11 12:51 | disposition home or self-care (01) ==
LOC: ER 09-10 01:25 → CSU 09-10 02:07
PROVIDERS: Admitting Provider Internal Medicine; Emergency Provider Emergency Medicine; PCP Family Medicine; Visit Provider Internal Medicine
DX: R06.00 Dyspnea, unspecified (principal); I48.91 Unspecified atrial fibrillation; F10.929 Alcohol use, unspecified with intoxication, unspecified; G47.33 Obstructive sleep apnea (adult) (pediatric); Z79.01 Long term (current) use of anticoagulants; Z85.51 Personal history of malignant neoplasm of bladder; J44.9 Chronic obstructive pulmonary disease, unspecified; E78.5 Hyperlipidemia, unspecified; I10 Essential (primary) hypertension; Z87.891 Personal history of nicotine dependence
CPT/HCPCS: 36415; 71045; 80048; 80053; 80069; 80307; 82803; 83735; 83880; 84443; 85025; 85610; 93005; 94640; 96365; 96366; 96372; 96375; 96376; 97116; 97161; 97166; 99285; G0378; J1940; J2930; J3411; J3480; J3490; J7611

== ENCOUNTER 2020-09-17 17:42 | Inpatient (IN) | payer MEDICARE, MEDICAID, SELFPAY ==
[2020-09-17 17:48] VITALS: BP 150/113; PULSE 109; RESP 22; O2SAT 93; BMI 30.3
--- NOTE | 2020-09-17 17:59 | XRR_ITS ---
PROCEDURE INFORMATION: Exam: XR Chest Exam date and time: 09/17/2020 6:06 PM Age: 75 years old Clinical indication: Dyspnea TECHNIQUE: Imaging protocol: XR of the chest. Views: 1 view. COMPARISON: CR XR chest 1V portable [id number] 09/09/2020 11:42 PM FINDINGS: Lungs: Patchy ground-glass peripheral opacities which may be seen with atypical pneumonia. Left basilar atelectasis or other infiltrate. Pleural spaces: Unremarkable. No pleural effusion. No pneumothorax. Heart/Mediastinum: No cardiomegaly. Bones/joints: No acute fracture. XR/XR chest 1V portable [id number] IMPRESSION: 1. Subtle patchy ground-glass peripheral opacities which may be seen with atypical pneumonia. 2. Left basilar atelectasis or other infiltrate.
--- NOTE | 2020-09-17 18:01 | ECG_ITS ---
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 Measurements Intervals [place] Rate: 117 P: [place]: QRS: -6 QRSD: 78 T: 52 QT: 301 QTc: 421 Interpretive Statements ATRIAL FIBRILLATION WITH RAPID VENTRICULAR RESPONSE ABNORMAL RHYTHM ECG Compared to ECG 09/09/2020 23:29:29 ST (T wave) deviation no longer present Electronically Signed On 09-17-2020 21:01:51 CDT by Marita Ansari M.D. [id number]
[2020-09-17 18:28] LABS: ABG PCO2 44.6 mmHg (35-45); ABG PH Result 7.45 (7.35-7.45); Arterial Blood Gas Hematocrit 43.1 % (42-52); Base Excess ABG 6.2 mmol/L (-2.0-2.0); Blood Gas Allen Test Pos; Blood Gas Operator Identificat MONRO; Blood Gas Sample Site Radial, right; Blood Gas Sample Type Arterial; Carboxyhemoglobin 2.5 %THgb (0.4-20.1); HCO3 ABG 31.1 mmol/L (22-26); Methemoglobin 0.7 % (0.4-1.5); Oxygen Device ROOM AIR; PO2 ABG 61.9 mmHg (80.0-100.0); Total Hemoglobin 14.1 g/dL (14-18)
[2020-09-17 18:40] LABS: Basophils # 0.1 10^3/uL (0.0-0.1); Basophils % 0.6 %; Eosinophils # 0.3 10^3/uL (0.0-0.8); Eosinophils % 3.8 %; Hematocrit 42.6 % (42.0-52.0); Hemoglobin 13.5 g/dL (11.7-16.6); Lymphocytes # 1.7 10^3/uL (0.8-4.8); Lymphocytes % 18.9 %; Mean Corpuscular HGB Conc 31.7 g/dL (30.0-36.0); Mean Corpuscular Volume 91.4 fL (80-94); Mean Platelet Volume 9.7 fL (7.4-10.4); Monocytes # 0.9 10^3/uL (0.2-0.9); Neutrophils # 5.79 10^3/uL (1.8-7.7); Neutrophils % 65.9 %; Nucleated Red Blood Cells % 0 %; Platelet Count 218 10^3/cmm (130-400); Red Blood Count 4.66 10^6/uL (4.1-5.3); Red Cell Distribution Width 16.1 % (12.1-15.1); White Blood Count 8.8 10^3/uL (4.0-10.0)
[2020-09-17 18:54] VITALS: BP 166/95; PULSE 103; RESP 18; O2SAT 94
[2020-09-17 19:00] LABS: Lactate (Lactic Acid level) 1.5 mmol/L (0.5-2.2); Troponin(5th) Baseline 43 ng/L (0-15)
[2020-09-17] MEDS: FUROsemide 10 mg/mL SDV 4mL 40 MG IVP (19:01)
[2020-09-17 19:02] LABS: INR 1.09 (0.8-1.2)
[2020-09-17 19:05] LABS: Add Urine Microscopic? NO; Bilirubin Urine Neg (Negative); Blood Urine Neg (Negative); Charge for UA Resulting for Rev; Glucose Urine UA Norm (Normal); Ketones Urine Negative (Negative); Leukocyte Esterase Urine Negative (Negative); Nitrate Urine Negative (Negative); Protein Urine Neg (Negative); Urine Appearance Clear (CLEAR); Urine Color Straw (Yellow); Urobilinogen Urine Norm (Negative); pH Urine 7 (5-7)
[2020-09-17 19:06] LABS: Alanine Aminotransferase 24 U/L (0-41); Albumin Level 3.7 g/dL (3.5-5.2); Alkaline Phosphatase 134 IU/L (40-130); Anion Gap 12.2 (5-19); Aspartate Amino Transferase 18 U/L (0-40); Blood Urea Nitrogen 12 mg/dL (8-23); Calcium 9.6 mg/dL (8.5-10.5); Carbon Dioxide 33 mmol/L (22-29); Chloride 99 mmol/L (98-107); Globulin 2.2 g/dL (1.3-4.6); Glucose 78 mg/dL (65-115); NT Pro B Type Natriuretic Pept 714 pg/mL (0-125); Osmolality Calculated 289 mOsm/kg (285-295); Potassium 4.2 mmol/L (3.5-5.1); Sodium 140 mmol/L (136-145); Total Bilirubin 0.3 mg/dL (0.15-1.2); Total Protein 5.9 g/dL (6.6-8.7)
[2020-09-17 19:08] LABS: Alcohol Level 10 mg/dL (0-10)
--- NOTE | 2020-09-17 20:01 | ECG_ITS ---
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 Measurements Intervals [place] Rate: 115 P: [place]: QRS: 0 QRSD: 75 T: 53 QT: 301 QTc: 417 Interpretive Statements ATRIAL FIBRILLATION WITH RAPID VENTRICULAR RESPONSE WITH ABERRANT CONDUCTION OR VENTRICULAR PREMATURE COMPLEXES ABNORMAL RHYTHM ECG Compared to ECG 09/17/2020 17:56:48 Ventricular premature complex(es) now present Aberrant conduction of supraventricular beat(s) now present Electronically Signed On 09-17-2020 21:12:40 CDT by Marita Ansari M.D. [id number]
--- NOTE | 2020-09-17 20:28 | PC.NURSE ---
EKG done at 2014 and shown to
[2020-09-17 20:50] LABS: Troponin 5 2HR 38.45 ng/L (0-15)
[2020-09-17 20:54] LABS: Troponin 5 2HR Delta -4.55 ABS# (0-10)
--- NOTE | 2020-09-17 21:03 | ED_ITS ---
HPI - SOB/Dyspnea General: Chief Complaint: Shortness of Breath/Dyspnea Stated Complaint: RESPIRATORY DISTRESS Time Seen by Provider: 09/17/20 17:57 History of Present Illness: HPI Narrative: The patient is a 75-year-old male with past medical history congestive heart failure, atrial fibrillation who comes to the ER complaining of increased shortness of breath and palpitations. EMS noted wheezing and gave him an albuterol treatment and Solu-Medrol. He also admits a 20 pound weight gain in 1 week, edema, lethargy and he that he is confused. He was seen by Dr. Sims this morning who recommended he take double his Lasix dose and call him daily however he became short of breath and came to the ER. He is in A. fib RVR on arrival with a rate in the 140s. Quickly after his arrival and he relaxed his rate went to 100-110 atrial fibrillation. The monitor keeps incorrectly picking up his heart rate as 160-200 but that is incorrect. MD elicited complaint: shortness of breath Pertinent past history: congestive heart failure Timing: constant Severity: moderate Exacerbating factors: lying flat Relieving factors: nothing Known history of: congestive heart failure Associated symptoms: Reports palpitations; Deny abdominal pain, chest pain, dizziness, extremity pain, orthopnea or polyuria Review of Systems General: Reports: 10 or more systems reviewed and unremarkable except in HPI and below Const: Denies: fatigue Eyes: Denies: change in vision, blurry vision or eye redness ENMT: Denies: throat pain, swelling of lips/tongue, ear or mastoid pain or nasal congestion Card: Reports: palpitations, irregular heart rhythm, edema and swelling of feet/ankles; Denies: chest pain, dyspnea on exertion or orthopnea Resp: Denies: dyspnea, productive cough or non-productive cough GI: Denies: abdominal pain, diarrhea or GI cramping : Denies: flank pain, urinary frequency or urinary urgency Musc: Denies: neck pain, back pain, extremity pain, joint pain, joint redness, limited range of motion or muscle weakness Skin/Breast: Denies: rash, pruritus, erythema, skin pain or skin tenderness Neuro: Denies: headache(s), numbness in extremities, weakness in extremities, sensory changes, difficulty walking, dizziness, confusion or Slurred speech present Psych: Denies: anxiety or depression Endo: Denies: polyuria All/Imm: Denies: urticaria, throat swelling or tongue swelling PFSH ED PFSH: Medical History Anxiety and depression Atrial fibrillation Atrial fibrillation Bladder cancer Chronic anticoagulation COPD (chronic obstructive pulmonary disease) COPD (chronic obstructive pulmonary disease) Cystitis cystica Genital lesion, male History of prostate cancer Hyperlipidemia Hypertension Iron deficiency anemia Left atrial enlargement 4.9 cm width Mitral regurgitation Obstructive sleep apnea Peripheral vascular disease of extremity Renal calculi Surgical History H/O esophagogastroduodenoscopy H/O eye surgery H/O eye surgery detached retina left eye History of colonoscopy (~2004) History of laparotomy History of lithotripsy History of ureter stent Family History Mother , at age 94 Hypertension Heart disease Father , at age 72 Renal disease Heart disease Brother Heart disease Other CAD (coronary artery disease) Cancer Denies family history of Anesthesia complication Bleeding disorder Social History Smoking and tobacco status: former smoker Quit status (tobacco): has quit using tobacco Year quit tobacco: 2020 - 1PPD x 50 Years Second hand smoke exposure: Yes Smoking risk assessment/counseling performed?: No Alcohol intake: current Alcohol intake frequency: 3 or more drinks per day Alcohol type: hard liquor Desire information about alcohol rehabilitation?: No Counseling given: Yes Counseling given: No Adopted: No Caregiver/support person: No Lives independently: Yes Household members: none Marital status: Single Current occupational status: retired History of recent travel: No Current gender identity: Male Physical Exam Const: COMMON NORMALS: no acute distress, average body habitus, patient oriented x3, no limitations, healthy appearing, alert and well nourished GENERAL APPEARANCE: cooperative, comfortable, well kempt and well developed ORIENTATION/CONSCIOUSNESS: Yes awake, Yes oriented to person, Yes oriented to place and Yes oriented to time HENMT: COMMON NORMALS: normocephalic, external ears normal and Normal external nose present HEAD & SCALP: normal to inspection and normocephalic NOSE: Normal external nose present EXTERNAL EAR: Yes external ears normal MOUTH: Normal oral and palatal mucosa present THROAT: posterior oropharynx normal Eye: COMMON NORMALS: Equal, round and reactive pupils present and EOMs intact bilaterally GENERAL EYE: appearance normal, both eyes and all related structures PUPIL: Yes Equal, round and reactive pupils present Neck/C-Spine: COMMON NORMALS: full ROM, no lymphadenopathy, no meningeal signs and no JVD GENERAL: Yes normal visual inspection Lymph: LYMPHATIC: no lymphadenopathy noted Chest: COMMONS NORMALS: normal inspection of the chest and normal palpation of entire chest wall Resp: COMMON NORMALS: normal respiratory effort, No retractions and No use of accessory muscles EFFORT & INSPECTION: Yes able to speak in complete sentences AUSCULTATION: crackles and wheezes Cardio: COMMON NORMALS: no JVD, regular rate, regular rhythm, S1 normal heart sound present, S2 normal heart sound present and Peripheral pulses 2+ throughout RATE: regular rate RHYTHM: regular rhythm HEART SOUNDS: S1 normal heart sound present and S2 normal heart sound present PERIPHERAL PULSES: Peripheral pulses 2+ throughout GI: COMMON NORMALS: Normal to inspection, nondistended, normoactive bowel sounds present, Soft to palpation, non-tender and no masses INSPECTION: Yes normal to inspection PALPATION: Yes Soft to palpation : COMMON NORMALS: Yes no CVA tenderness BLADDER/KIDNEY EXAM: Yes no CVA tenderness Back/Pelvis: COMMON NORMALS: no CVA tenderness, thoracic and lumbar spine normal to inspection, no thoracic nor lumbar tenderness and thoraco-lumbar ROM normal Extremity: COMMON NORMALS: normal to inspection, full ROM, capillary refill normal and no joint enlargement NARRATIVE EXTREMITY EXAM: Bilateral lower extremity edema 2-3+ to his knees. GENERAL: Yes normal exam except as noted Neuro: COMMON NORMALS: patient oriented x3, CN's II-XII intact bilaterally, moves all extremities, no focal motor deficits, no sensory deficits noted and gait normal SENSORIUM/ORIENTATION: Yes alert, Yes oriented to person, Yes oriented to place and Yes oriented to time MENINGEAL SIGNS: Yes no meningeal signs Psych: COMMON NORMALS: mental status grossly normal, Normal thought process present, cooperative, normal affect and speech normal APPEARANCE: Yes well kempt ATTITUDE: Yes calm SPEECH: Yes normal speech THOUGHT PROCESS: Normal thought process present Skin: COMMON NORMALS: no rashes or lesions noted GENERAL SKIN EXAM: no rashes or lesions noted Course Vital Signs: Vital signs: Vital Signs Temperature 98.4 F 04/08/21 23:30 Pulse Rate 107 H 09/17/20 23:30 Respiratory Rate 18 09/17/20 23:30 Blood Pressure 142/98 09/17/20 23:30 Pulse Oximetry 94 09/17/20 23:30 MDM - SOB/Dyspnea MDM Narrative: Medical decision making narrative: The patient came in with atrial fibrillation RVR rate in the 140s and after he relaxed it settled to a sinus tachycardia rate 100-110. He also has significant peripheral edema and a history of CHF. He was given 40 IV Lasix with good urine output. BNP also elevated. Started on diltiazem drip 5 mg an hour for some rate control. Discussed with Dr. Jaimes who accepts to CSU. Lab Data: Labs: Lab Results 09/17/20 09/17/20 09/17/20 Range/Units 18:14 18:28 18:28 WBC 8.8 (4.0-10.0) 10^3/ uL RBC 4.66 (4.1-5.3) 10^6/u L Hgb 13.5 (11.7-16.6) g/dL Hct 42.6 (42.0-52.0) % MCV 91.4 (80-94) fL MCH 29.0 (28.0-34.0) pg MCHC 31.7 (30.0-36.0) g/dL RDW 16.1 H (12.1-15.1) % Plt Count 218 (130-400) 10^3/c mm MPV 9.7 (7.4-10.4) fL Neut % (Auto) 65.9 % Lymph % (Auto) 18.9 % [place] % (Auto) 10.0 % Eos % (Auto) 3.8 % Baso % (Auto) 0.6 % Neut # (Auto) 5.79 (1.8-7.7) 10^3/u L Lymph # (Auto) 1.7 (0.8-4.8) 10^3/u L [place] # (Auto) 0.9 (0.2-0.9) 10^3/u L Eos # (Auto) 0.3 (0.0-0.8) 10^3/u L Baso # (Auto) 0.1 (0.0-0.1) 10^3/u L Nucleated RBC % (a uto) 0 % Nucleated RBCs # 0.0 /100WBC PT 14.50 (12.1-14.9) SECO NDS INR 1.09 (0.8-1.2) Specimen Type Arterial Sample Site Radial, right ABG pH 7.45 (7.35-7.45) ABG pCO2 44.6 (35-45) mmHg ABG pO2 61.9 L (80.0-100.0) mmH g ABG HCO3 31.1 H (22-26) mmol/L ABG Base Excess 6.2 H (-2.0-2.0) mmol/ L Ancelmo Test Pos Hematocrit 43.1 (42-52) % Hgb O2 Saturation 90.0 L (95-100) % Carboxyhemoglobin 2.5 (0.4-20.1) %THgb Methemoglobin 0.7 (0.4-1.5) % Total Hemoglobin 14.1 (14-18) g/dL O2 Delivery Device Room air FiO2 21.0 % Senior Service Technician ID [place] Sodium (136-145) mmol/L Potassium (3.5-5.1) mmol/L Chloride (98-107) mmol/L Carbon Dioxide (22-29) mmol/L Anion Gap (5-19) BUN (8-23) mg/dL Creatinine (0.7-1.2) mg/dL GFR Calculation Glucose (65-115) mg/dL Calculated Osmolal ity (285-295) mOsm/k g Lactate (0.5-2.2) mmol/L Calcium (8.5-10.5) mg/dL Total Bilirubin (0.15-1.2) mg/dL AST (0-40) U/L ALT (0-41) U/L Alkaline Phosphata se (40-130) IU/L Troponin T Baselin e (0-15) ng/L Troponin T 120 [place] (0-15) ng/L Delta Troponin T (0-10) ABS# NT-Pro-B Natriuret Pep (0-125) pg/mL Total Protein (6.6-8.7) g/dL Albumin (3.5-5.2) g/dL Globulin (1.3-4.6) g/dL Urine Color (Yellow) Urine Appearance (CLEAR) Urine pH (5-7) Ur Specific Gravit y (1.005-1.030) Urine Protein (Negative) Urine Glucose (UA) (Normal) Urine Ketones (Negative) Urine Blood (Negative) Urine Nitrate (Negative) Urine Bilirubin (Negative) Urine Urobilinogen (Negative) mg/dL Ur Leukocyte Debora ase (Negative) Ethyl Alcohol (0-10) mg/dL 09/17/20 09/17/20 09/17/20 Range/Units 18:28 18:28 18:28 WBC (4.0-10.0) 10^3/ uL RBC (4.1-5.3) 10^6/u L Hgb (11.7-16.6) g/dL Hct (42.0-52.0) % MCV (80-94) fL MCH (28.0-34.0) pg MCHC (30.0-36.0) g/dL RDW (12.1-15.1) % Plt Count (130-400) 10^3/c mm MPV (7.4-10.4) fL Neut % (Auto) % Lymph % (Auto) % [place] % (Auto) % Eos % (Auto) % Baso % (Auto) % Neut # (Auto) (1.8-7.7) 10^3/u L Lymph # (Auto) (0.8-4.8) 10^3/u L [place] # (Auto) (0.2-0.9) 10^3/u L Eos # (Auto) (0.0-0.8) 10^3/u L Baso # (Auto) (0.0-0.1) 10^3/u L Nucleated RBC % (a uto) % Nucleated RBCs # /100WBC PT (12.1-14.9) SECO NDS INR (0.8-1.2) Specimen Type Sample Site ABG pH (7.35-7.45) ABG pCO2 (35-45) mmHg ABG pO2 (80.0-100.0) mmH g ABG HCO3 (22-26) mmol/L ABG Base Excess (-2.0-2.0) mmol/ L Ancelmo Test Hematocrit (42-52) % Hgb O2 Saturation (95-100) % Carboxyhemoglobin (0.4-20.1) %THgb Methemoglobin (0.4-1.5) % Total Hemoglobin (14-18) g/dL O2 Delivery Device FiO2 % Senior Service Technician ID Sodium 140 (136-145) mmol/L Potassium 4.2 (3.5-5.1) mmol/L Chloride 99 (98-107) mmol/L Carbon Dioxide 33 H (22-29) mmol/L Anion Gap 12.2 (5-19) BUN 12 (8-23) mg/dL Creatinine 0.8 (0.7-1.2) mg/dL GFR Calculation Not Reportable Glucose 78 (65-115) mg/dL Calculated Osmolal ity 289 (285-295) mOsm/k g Lactate 1.5 (0.5-2.2) mmol/L Calcium 9.6 (8.5-10.5) mg/dL Total Bilirubin 0.3 (0.15-1.2) mg/dL AST 18 (0-40) U/L ALT 24 (0-41) U/L Alkaline Phosphata se 134 H (40-130) IU/L Troponin T Baselin e 43 H (0-15) ng/L Troponin T 120 [place] (0-15) ng/L Delta Troponin T (0-10) ABS# NT-Pro-B Natriuret Pep 714 H (0-125) pg/mL Total Protein 5.9 L (6.6-8.7) g/dL Albumin 3.7 (3.5-5.2) g/dL Globulin 2.2 (1.3-4.6) g/dL Urine Color (Yellow) Urine Appearance (CLEAR) Urine pH (5-7) Ur Specific Gravit y (1.005-1.030) Urine Protein (Negative) Urine Glucose (UA) (Normal) Urine Ketones (Negative) Urine Blood (Negative) Urine Nitrate (Negative) Urine Bilirubin (Negative) Urine Urobilinogen (Negative) mg/dL Ur Leukocyte Debora ase (Negative) Ethyl Alcohol 10 (0-10) mg/dL 09/17/20 09/17/20 Range/Units 18:51 20:28 WBC (4.0-10.0) 10^3/ uL RBC (4.1-5.3) 10^6/u L Hgb (11.7-16.6) g/dL Hct (42.0-52.0) % MCV (80-94) fL MCH (28.0-34.0) pg MCHC (30.0-36.0) g/dL RDW (12.1-15.1) % Plt Count (130-400) 10^3/c mm MPV (7.4-10.4) fL Neut % (Auto) % Lymph % (Auto) % [place] % (Auto) % Eos % (Auto) % Baso % (Auto) % Neut # (Auto) (1.8-7.7) 10^3/u L Lymph # (Auto) (0.8-4.8) 10^3/u L [place] # (Auto) (0.2-0.9) 10^3/u L Eos # (Auto) (0.0-0.8) 10^3/u L Baso # (Auto) (0.0-0.1) 10^3/u L Nucleated RBC % (a uto) % Nucleated RBCs # /100WBC PT (12.1-14.9) SECO NDS INR (0.8-1.2) Specimen Type Sample Site ABG pH (7.35-7.45) ABG pCO2 (35-45) mmHg ABG pO2 (80.0-100.0) mmH g ABG HCO3 (22-26) mmol/L ABG Base Excess (-2.0-2.0) mmol/ L Ancelmo Test Hematocrit (42-52) % Hgb O2 Saturation (95-100) % Carboxyhemoglobin (0.4-20.1) %THgb Methemoglobin (0.4-1.5) % Total Hemoglobin (14-18) g/dL O2 Delivery Device FiO2 % Senior Service Technician ID Sodium (136-145) mmol/L Potassium (3.5-5.1) mmol/L Chloride (98-107) mmol/L Carbon Dioxide (22-29) mmol/L Anion Gap (5-19) BUN (8-23) mg/dL Creatinine (0.7-1.2) mg/dL GFR Calculation Glucose (65-115) mg/dL Calculated Osmolal ity (285-295) mOsm/k g Lactate (0.5-2.2) mmol/L Calcium (8.5-10.5) mg/dL Total Bilirubin (0.15-1.2) mg/dL AST (0-40) U/L ALT (0-41) U/L Alkaline Phosphata se (40-130) IU/L Troponin T Baselin e (0-15) ng/L Troponin T 120 [place] 38.45 H (0-15) ng/L Delta Troponin T -4.55 L (0-10) ABS# NT-Pro-B Natriuret Pep (0-125) pg/mL Total Protein (6.6-8.7) g/dL Albumin (3.5-5.2) g/dL Globulin (1.3-4.6) g/dL Urine Color Straw (Yellow) Urine Appearance Clear (CLEAR) Urine pH 7 (5-7) Ur Specific Gravit y 1.010 (1.005-1.030) Urine Protein Neg (Negative) Urine Glucose (UA) Norm (Normal) Urine Ketones Negative (Negative) Urine Blood Neg (Negative) Urine Nitrate Negative (Negative) Urine Bilirubin Neg (Negative) Urine Urobilinogen Norm (Negative) mg/dL Ur Leukocyte Debora ase Negative (Negative) Ethyl Alcohol (0-10) mg/dL Discharge Plan Discharge Patient Disposition: Admitted As Inpatient Admit Provider: Dionne Boudreaux Clinical Impression: CHF exacerbation, Atrial fibrillation with RVR Condition: Stable Discharge Diet: Advance as tolerated Discharge Activity: Resume usual activity Coding Level of Care Code ED Power Press Tender for Juan Delarosa
--- NOTE | 2020-09-17 21:53 | PM.HP ---
Providers/Chief Complaint Primary Care Provider: Randolph Carlson MD Chief Complaint: RESPIRATORY DISTRESS History of Present Illness Damien Stringer is a 75 year old male who has history of alcohol abuse, chronic atrial fibrillation, anticoagulation, preserved ejection fraction heart failure with severe mitral regurgitation, sleep apnea, combined obstructive restrictive pulmonary disease, bladder and prostate cancer, multiple UTIs previous urine culture grew Enterococcus faecalis, he was also intubated in June due to COPD exacerbation presented today with chief complaint of shortness of breath. He was recently discharged from the hospital on 09/11 for management of A. fib RVR secondary to alcohol intoxication. Patient is stating that he has been compliant with his medications, has not consumed alcohol, no fever, chest pain, he is endorsing shortness of breath on exertion, bilateral lower extremity swelling and weight gain. He lives alone and today when home health medical staff checked on him, he was experiencing shortness of breath and because of worsening swelling he was asked to go to the ER for further evaluation. He denies denies any chest pain, nausea, vomiting, fever. Diagnostics in the ER revealed A. fib RVR, congestive heart failure BNP is worsening clinically fluid overloaded he was given Lasix in the ER and was started on Cardizem drip at 5 mg/h, he was not complaining of chest pain at the time my evaluation he was saturating well He does endorse taking Eliquis on daily basis, chest x-ray shows mild pulmonary vascular ingestion however mild improvement as compared to previous x-ray Review of Systems Const: Reports: fatigue; Denies: fever(s), chills or body aches Eyes: Denies: change in vision ENMT: Denies: throat pain Card: Reports: palpitations, irregular heart rhythm, edema, swelling of feet/ankles and dyspnea on exertion Resp: Reports: dyspnea GI: Denies: abdominal pain : Denies: flank pain Musc: Denies: neck pain Skin/Breast: Denies: rash Neuro: Denies: headache(s) Psych: Denies: anxiety Endo: Denies: polyuria Ge[place]/Lymph: Denies: easy bruising All/Imm: Denies: urticaria Medications/Allergies Home Medications Medication Instructions Recorded Confirmed Last Taken Type Eliquis 5 mg PO BID@06,18 07/20/19 09/17/20 08/14/20 History Spiriva Respimat 1 puff INHALATION BID@0600,1800 07/20/19 09/17/20 08/14/20 History fluticasone propionate [Flonase 1 spray INTRANASAL BID PRN 07/20/19 09/17/20 08/14/20 History Allergy Relief] isosorbide mononitrate 20 mg PO BID@,18 07/20/19 09/17/20 08/14/20 History pravastatin [Pravachol] 40 mg PO DAILY@07/20/19 09/17/20 08/13/20 History tamsulosin [Flomax] 0.4 mg PO DAILY@07/20/19 09/17/20 08/14/20 History ferrous sulfate [iron] 325 mg PO DAILY@10/27/19 09/17/20 08/14/20 History mirtazapine 30 mg PO DAILY@10/27/19 09/17/20 08/13/20 History ropinirole 3 mg PO DAILY@10/27/19 09/17/20 08/13/20 History ascorbate calcium (vitamin C) 500 1 gm PO BID@ tab 11/05/19 09/17/20 06/23/20 18:00 History mg tablet cilostazol 50 mg PO BID@12/02/19 09/17/20 08/14/20 History albuterol sulfate 2.5 mg INHALATION Q6H PRN 05/21/20 09/17/20 08/14/20 History pantoprazole [Protonix] 40 mg PO DAILY@06/02/20 09/17/20 08/14/20 History thiamine mononitrate (vit B1) 100 mg PO DAILY@06/02/20 09/17/20 08/14/20 History [Vitamin B-1 (mononitrate)] albuterol sulfate 2 inh INHALATION BID PRN 06/24/20 09/17/20 08/14/20 History metoprolol tartrate 25 mg tablet 50 mg PO Q12H tab 07/13/20 09/17/20 08/14/20 History bumetanide 1 mg tablet 1 mg PO DAILY@0600 08/04/20 09/17/20 08/14/20 History Chantix Continuing Month Box 1 mg PO DAILY@0608/14/20 09/17/20 08/14/20 History diltiazem HCl [DILT-XR] 360 mg PO DAILY@0600 08/14/20 09/17/20 08/14/20 History fluticasone propion-salmeterol 1 puff INHALATION BID@0600,1800 08/14/20 09/17/20 08/14/20 History [Advair Diskus] potassium chloride 10 meq PO DAILY@0600 08/14/20 09/17/20 08/14/20 History Bactrim DS 1 tab PO BID 09/10/20 09/17/20 Unknown History buspirone 15 mg PO BID@06,18 09/10/20 09/17/20 Unknown History lisinopril 10 mg PO DAILY 09/10/20 09/17/20 Unknown History methenamine hippurate 1 g PO BID@06,18 09/10/20 09/17/20 Unknown History zolpidem 12.5 mg PO BEDTIME 09/10/20 09/17/20 Unknown History chlordiazepoxide HCl 50 mg PO Q8H #36 cap 09/11/20 09/17/20 Unknown Rx folic acid 1 mg PO DAILY #30 tab 09/11/20 09/17/20 Unknown Rx Allergies Allergy/AdvReac Type Severity Reaction Status Date / Time No Known Allergies Allergy Verified 09/17/20 11:02 PFSH Acute PFSH: Medical History Anxiety and depression Atrial fibrillation Atrial fibrillation Bladder cancer Chronic anticoagulation COPD (chronic obstructive pulmonary disease) COPD (chronic obstructive pulmonary disease) Cystitis cystica Genital lesion, male History of prostate cancer Hyperlipidemia Hypertension Iron deficiency anemia Left atrial enlargement 4.9 cm width Mitral regurgitation Obstructive sleep apnea Peripheral vascular disease of extremity Renal calculi Surgical History H/O esophagogastroduodenoscopy H/O eye surgery H/O eye surgery detached retina left eye History of colonoscopy (~2004) History of laparotomy History of lithotripsy History of ureter stent Family History Mother , at age 94 Hypertension Heart disease Father , at age 72 Renal disease Heart disease Brother Heart disease Other CAD (coronary artery disease) Cancer Denies family history of Anesthesia complication Bleeding disorder Social History Smoking and tobacco status: former smoker Quit status (tobacco): has quit using tobacco Year quit tobacco: 2020 - 1PPD x 50 Years Second hand smoke exposure: Yes Smoking risk assessment/counseling performed?: No Alcohol intake: current Alcohol intake frequency: 3 or more drinks per day Alcohol type: hard liquor Desire information about alcohol rehabilitation?: No Counseling given: Yes Counseling given: No Adopted: No Caregiver/support person: No Lives independently: Yes Household members: none Marital status: Single Current occupational status: retired History of recent travel: No Current gender identity: Male Vitals/I&O/Wt Last Vital Signs Pulse 103 H 09/17/20 18:54 Resp 18 09/17/20 18:54 BP 166/95 09/17/20 18:54 Pulse Ox 94 09/17/20 18:54 Weight last 48 hrs Weight 112.945 kg Physical Exam Narrative: EXAM NARRATIVE: Very pleasant elderly male He was in semi-[place]osta position saturating well on room air Appears stated age Clinically fluid overloaded with variable S1-S2 bilateral lower extremity edema 3+ No active signs of cellulitis of lower extremities Abdomen distended bowel sounds present, central obesity, nontender Bilateral breath sounds no adventitious rhonchi however cardiac wheezing positive Appropriate mood and affect EOMI, PERRLA no neurological deficits No skin changes of cellulitis gangrene or ischemia No joint swelling Appropriate grooming Data : 09/17/20 18:28 09/17/20 18:28 A&P Assessment and plan (1) Atrial fibrillation with RVR: Status: Acute (2) CHF exacerbation: Status: Acute Qualifiers: Heart failure type: diastolic Qualified Code(s): I50.33 - Acute on chronic diastolic (congestive) heart failure (3) Peripheral vascular disease of extremity: Status: Acute (4) Hypertension: Status: Acute Qualifiers: Hypertension type: essential hypertension Qualified Code(s): I10 - Essential (primary) hypertension (5) Chronic anticoagulation: Status: Acute Additional A&P Information A. fib with acute RVR Patient has history of paroxysmal A. fib RVR currently he is on Cardizem and metoprolol with Eliquis, on last admission his metoprolol dose was increased to 50 mg twice a day which I would increase to 100 mg twice a day along long-acting Cardizem, continue Eliquis Currently requiring Cardizem drip 5 mg/h Potassium 4.2 we will check magnesium level I will keep him on thiamine and folic acid patient denied using alcohol in last few weeks Acute CHF exacerbation He has history of preserved ejection fraction heart failure with severe mitral valve regurgitation I do believe this is secondary to tachyarrhythmia rate control is prudent at the time to prevent further deterioration No need of getting an echo at this point, Keep him on Bumex 1 mg twice a day and watch for alkalosis as his bicarb shows mild worsening COPD without acute exacerbation currently saturating well on room air compensated pH Cardiac diet DVT prophylaxis not needed due to Eliquis Sleep apnea: Would use auto CPAP History of bladder and prostate cancer: Continue tamsulosin no acute exacerbation Full code Attestations Medical Necessity Statement*: Anticipating discharge in less than 48 hours continued Cardizem drip for A. fib RVR titration of Bumex for CHF exacerbation Time Spent in Patient Care: 35mins Coding Level of Care Code Acute Water Main Pipe Layer for Juan Fwd Diagnoses Atrial fibrillation with RVR I48.91 CHF exacerbation I50.33 Heart failure type: diastolic Peripheral vascular disease of extremity I73.9 Hypertension I10 Hypertension type: essential hypertension Chronic anticoagulation Z79.01
[2020-09-17 22:29] VITALS: BP 109/90; PULSE 115; RESP 21; O2SAT 91
[2020-09-17 23:30] VITALS: BP 142/98; PULSE 107; RESP 18; TEMP 36.9; O2SAT 94
[2020-09-18] VITALS (16 sets, daily range): BP systolic 127–160; BP diastolic 74–92; PULSE 67–97; RESP 18–22; TEMP 36.6–37; O2SAT 92–97
--- NOTE | 2020-09-18 00:01 | ECG_ITS ---
[facility] Test Date: 2020-09-17 Pat Name: Damien Stringer Department: Room: 254 Gender: Male Sheet Combining Operator: : 1945 Requested By: John Gutiérrez Order Number: [id number] Clarita MD: YARED BENNETT Measurements Intervals Corrigan Rate: 109 P: VA: QRS: 13 QRSD: 81 T: 68 QT: 341 QTc: 459 Interpretive Statements ATRIAL FIBRILLATION WITH RAPID VENTRICULAR RESPONSE ABNORMAL RHYTHM ECG Compared to ECG 09/17/2020 20:13:11 Aberrant conduction of supraventricular beat(s) no longer present Ventricular premature complex(es) no longer present Electronically Signed On 09-18-2020 20:23:09 CDT by YARED BENNETT [id number] [email or web address]
[2020-09-18 00:33] LABS: Magnesium 2.1 mg/dL (1.7-2.3)
[2020-09-18 01:05] LABS: Anion Gap 14.8 (5-19); Blood Urea Nitrogen 15 mg/dL (8-23); Calcium 9.5 mg/dL (8.5-10.5); Carbon Dioxide 29 mmol/L (22-29); Chloride 98 mmol/L (98-107); Glucose 152 mg/dL (65-115); Osmolality Calculated 288 mOsm/kg (285-295); Potassium 4.8 mmol/L (3.5-5.1); Sodium 137 mmol/L (136-145)
[2020-09-18] MEDS: dilTIAZem ER (24HR) 180 mg Capsule PO (07:59)
[2020-09-18] MEDS: bumetanide 1 mg Tablet PO (08:00)
[2020-09-18] MEDS: thiamine 100 mg Tablet PO (08:00)
[2020-09-18] MEDS: apixaban 5 mg Tablet PO ×2 (08:00→17:38)
[2020-09-18] MEDS: metoprolol tartrate 50 mg Tablet 100 MG PO ×2 (08:00→19:59)
[2020-09-18] MEDS: tamsulosin 0.4 mg Capsule PO (08:01)
[2020-09-18] MEDS: folic acid 1 mg Tablet PO (08:01)
--- NOTE | 2020-09-18 10:45 | PC.NURSE ---
patient reports difficulty breathing, oxygen saturation 94% on RA, heart rate and rhythm a-fib 70's, respiratory therapy notified for PRN breathing treatment.
[2020-09-18] MEDS: ipratropium-albuterol 3 mL Neb INHALATION ×2 (11:46→20:46)
--- NOTE | 2020-09-18 13:33 | PC.CHAP ---
Pastoral Care Encounter/Spiritual Assessment Type of Contact [] Declined wharf tally clerk visit [] Patient/Family/Request visit [] Outpatient visit [] Follow-up visit [] Physician referral [] Code/Alert [xx] Routine visit [] Staff referral [] Actively dying [] Patient sleeping [] Family support [] [] Out of room [] Palliative care [] [] Receiving care in room [] Pre-surgical visit [] Trauma [] Long length of stay [] ICU visit [] Other: Relational/Emotional Strength [xx] Patient feels connected with others/family/visitors/staff [] Distress [] Loneliness/isolation [] Abandonment Spirituality of Patient [xx] Person of Brandi [xx] Attends Sabianism of their Brandi [xx] Believes in Prayer [] Reads Bible or Sabianism materials [] There are Spiritual issues to be addressed Bill Board Poster Interventions [xx] Prayer [xx] Active listening [xx] Non-anxious presence [] Spiritual/emotional support [] Crisis/trauma care [] Spiritual counseling [] Bereavement support [] Provided bereavement packet [] Provided Bible/devotional materials [] Provided toy/stuffed animal, coloring book to patient or family member [] Provided Communion [] Anointing/[place] [] Salvation [xx] Completed spiritual assessment [] Other: Impact on Illness or Injury [] Angry [] Fearful [] Anxious [] Often cries [] Exhaustion [] Unable to work [] Unable to attend latter-day [] Unable to walk/stand [] Unable to read [] Unable to drive [] Unable to eat/drink [] Unable to sleep [] Unable to be with family [] Patient intubated [] Other: Summary Patient wanted prayer but was having difficulty breathing so visit kept short after praying. Time spent with patient 3 minutes
--- NOTE | 2020-09-18 13:58 | PC.NURSE ---
Cardizem drip stopped per Dr. Burton's order, patient on telemetry and will be monitored closely.
--- NOTE | 2020-09-18 17:36 | P.PN_ITS ---
Subjective Subjective: Interval history: Overnight labs and H&P reviewed. Continues to be on Cardizem drip at 5 mg/h and output 750 cc Medications: Reviewed: Yes Vitals/I&O/Wt Last Vital Signs Temp 98.6 F 09/18/20 15:22 Pulse 75 09/18/20 15:22 Resp 19 H 09/18/20 15:22 BP 131/78 09/18/20 15:22 Pulse Ox 93 09/18/20 15:22 09/18/20 09/18/20 09/18/20 06:59 14:59 22:59 Intake Total 34 / 34 534.333 / 534.333 Output Total 0 / 0 750 / 750 Balance 34 / 34 -215.667 / -215.667 Weight last 48 hrs Weight 112.945 kg Physical Exam Narrative: EXAM NARRATIVE: GEN: Awake, alert and oriented, no acute distress CVS: S1S2 N RS: CTA B/L except crackles over RUL Abd: Soft, nt/nd , bs+ ASSET PROTECTION OFFICER: no focal neuro deficits Data : 09/17/20 18:28 09/18/20 00:35 A&P Assessment and plan (1) Atrial fibrillation with RVR: Status: Acute (2) CHF exacerbation: Status: Acute (3) Peripheral vascular disease of extremity: Status: Acute (4) Hypertension: Status: Acute Qualifiers: Hypertension type: essential hypertension Qualified Code(s): I10 - Essential (primary) hypertension (5) Chronic anticoagulation: Status: Acute Additional A&P Information A. fib with acute RVR Patient continues to be on Cardizem drip at 5 mg/h, heart rate is now better controlled at 75 bpm. Discontinue Cardizem infusion and monitor heart rate closely. If needed will increase dose of Cardizem. continue Eliquis I will keep him on thiamine and folic acid patient denied using alcohol in last few weeks Acute CHF exacerbation He has history of preserved ejection fraction heart failure with severe mitral valve regurgitation Likely fluid overloaded, change diuresis to 1 mg IV twice daily Bumex and monitor closely. Urine output only 750 cc over last 24 hours COPD without acute exacerbation currently saturating well on room air compensated pH Cardiac diet DVT prophylaxis not needed due to Eliquis Sleep apnea: Would use auto CPAP History of bladder and prostate cancer: Continue tamsulosin no acute exacerbation Full code Attestations Medical Necessity Statement*: Change to inpatient admission, needs ongoing mission for IV diuresis, optimization of volume status, will monitor heart rate after discontinuing IV Cardizem. Coding Level of Care Code Acute Switch Foreman for Chg Fwd Diagnoses Atrial fibrillation with RVR I48.91 CHF exacerbation I50.9 Peripheral vascular disease of extremity I73.9 Hypertension I10 Hypertension type: essential hypertension Chronic anticoagulation Z79.01
--- NOTE | 2020-09-18 17:49 | PC.RESP ---
Pulmonary Rehab information sent to patient.
--- NOTE | 2020-09-18 19:11 | PC.NURSE ---
report given to reilly arzateished care of patient.
[2020-09-18] MEDS: bumetanide 0.25 mg/mL SDV 4 mL 1 MG IV (19:56)
[2020-09-19] VITALS (14 sets, daily range): BP systolic 122–136; BP diastolic 68–89; PULSE 67–94; RESP 18–21; TEMP 36–36.8; O2SAT 93–99
[2020-09-19] MEDS: mirtazapine 30 mg Tablet PO ×2 (00:34→17:04)
[2020-09-19] MEDS: ropinirole 2 mg Tablet 3 MG PO ×2 (00:34→17:04)
[2020-09-19] MEDS: zolpidem 5 mg Tablet 10 MG PO ×2 (00:44→21:07)
[2020-09-19 08:21] LABS: Alanine Aminotransferase 26 U/L (0-41); Albumin Level 3.6 g/dL (3.5-5.2); Alkaline Phosphatase 124 IU/L (40-130); Aspartate Amino Transferase 20 U/L (0-40); Blood Urea Nitrogen 32 mg/dL (8-23); Calcium 9.2 mg/dL (8.5-10.5); Carbon Dioxide 33 mmol/L (22-29); Chloride 99 mmol/L (98-107); Globulin 2.9 g/dL (1.3-4.6); Glucose 105 mg/dL (65-115); Osmolality Calculated 297 mOsm/kg (285-295); Sodium 140 mmol/L (136-145); Total Bilirubin 0.3 mg/dL (0.15-1.2); Total Protein 6.5 g/dL (6.6-8.7)
[2020-09-19 08:38] LABS: Anion Gap 12.8 (5-19)
[2020-09-19 08:39] LABS: Potassium 4.8 mmol/L (3.5-5.1)
[2020-09-19] MEDS: tamsulosin 0.4 mg Capsule PO (08:42)
[2020-09-19] MEDS: apixaban 5 mg Tablet PO ×2 (08:42→17:04)
[2020-09-19] MEDS: dilTIAZem ER (24HR) 180 mg Capsule PO (08:42)
[2020-09-19] MEDS: folic acid 1 mg Tablet PO (08:42)
[2020-09-19] MEDS: metoprolol tartrate 50 mg Tablet 100 MG PO ×2 (08:42→21:07)
[2020-09-19] MEDS: thiamine 100 mg Tablet PO (08:42)
[2020-09-19] MEDS: bumetanide 0.25 mg/mL SDV 4 mL 1 MG IV (08:43)
[2020-09-19] MEDS: ipratropium-albuterol 3 mL Neb INHALATION ×2 (09:07→20:27)
[2020-09-19] MEDS: FUROsemide 10 mg/mL SDV 10mL 60 MG IVP (14:10)
--- NOTE | 2020-09-19 14:14 | PC.RESP ---
Nurse notified nurse, therapist stated that she would be up as soon as she good. Therapist noticed that nurse pulled med from [facility]. Therapist walked in room and noticed nurses giving a treatment. Nurse stated that Dr. Burton said to pull med and give it. Nurse tried giving med wrapper to therapist to have therapist scan the med. Therapist refused to scan med due to therapist not giving the med. patient is scheduled Q6PRN and had a treatment at 0900.
--- NOTE | 2020-09-19 14:33 | PC.NURSE ---
Dr. Burton administered a breathing treatment. I relayed message to Rupinder perdomo. This nurse was unable to scan in AUG.
--- NOTE | 2020-09-19 14:35 | PC.NURSE ---
This nurse was in another patient room when the day fiction and nonfiction prose writer came to the door and said that the patient in room 254-2 said he was having a hard time breathing. this nurse proceeded to the room in question with the vitals cart to check O2 saturation while auscultating his lung. the patient had expiratory wheezing but was reading with a O2 sat of 94% on room air. this nurse informed that patient of his oxygen level and instructed him to slow his breathing. the patient stated i don't think i can have a breathing treatment yet, but can I have another? or some mentholated rub? i feel like my lungs are closing up this nurse went to the nurse that was over the care of this patient,Vika Ward RN, and informed her about her patient. Vika contacted RT asking for another breathing tx and RT replied that they would be up. this nurse was coming down the little shortly after and saw Dr Burton coming out of the patients room, grabbing a vitals cart. The doctor saw me and asked if RT could be contacted, patient was having SOB. I informed her that RT had been contacted and that they would be up, as well as that his last reading was 94%. the new O2 reading revealed that the patients oxygen had dropped to 87%, the doctor placed the patient on 3L NC. the doctor did not want to wait for RT to arrive and wanted the patient to receive a breathing tx immediately. this nurse removed a breathing tx from the pyxis and gave it to Dr Burton who placed it in the nebulizer and administered the tx.
--- NOTE | 2020-09-19 14:54 | P.PN_ITS ---
Subjective Subjective: Interval history: When seen this afternoon patient was complaining of acute shortness of breath, noted to be wheezing, O2 sat 87%. Received DuoNeb treatment, extra 60 mg IV Lasix and respiratory status improved. Placed on 3 L/min nasal cannula. 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 fib with acute RVR, rate is now currently well controlled on p.o. Cardizem. Remains off Cardizem drip since yesterday. continue Eliquis Acute CHF exacerbation He has history of preserved ejection fraction heart failure with severe mitral valve regurgitation Still with 2+ pitting edema, urine output 2500 mL, renal function maintained, increase diuresis to 80 mg IV every 12 Lasix. Additional 60 mg of IV Lasix given today COPD , episode of acute bronchospasm this afternoon associated with dyspnea tachypnea and following O2 sats to 87%, improved after nebulization. Change DuoNeb to standing every 6 inhalation, add budesonide 0.5 mg twice daily, albuterol inhaler every 4 as needed. Cardiac diet DVT prophylaxis not needed due to Eliquis Sleep apnea: Would use auto CPAP History of bladder and prostate cancer: Continue tamsulosin, resume methanamaine resume home medications incl buspirojne, methanamaine, prortonix, zolpidem Full code Attestations Medical Necessity Statement*: Acute dyspnea, new 02 requiremebt, increasing iv diuresis needs close monitoring of respiratory status Coding Level of Care Code Acute Learning Support Resource Room Teacher for Chg Fwd Diagnoses Atrial fibrillation with RVR I48.91 CHF exacerbation I50.9 Peripheral vascular disease of extremity I73.9 Hypertension I10 Hypertension type: essential hypertension Chronic anticoagulation Z79.01
[2020-09-19] MEDS: BuSPIRONE 10 mg Tablet 15 MG PO (17:02)
[2020-09-19] MEDS: cilostazol 100 mg Tablet 50 MG PO (17:02)
[2020-09-19] MEDS: atorvastatin 40 mg Tablet 20 MG PO (17:03)
--- NOTE | 2020-09-19 17:39 | PC.NURSE ---
pt had some sob today, o2 currently 98 percent on 2.5L. pt output is 1800 at this time. lower bilateral edema 2-3+, pt has had a strong , productive cough today.
[2020-09-19] MEDS: FUROsemide 10 mg/mL SDV 10mL 80 MG IVP (19:49)
[2020-09-19] MEDS: budesonide 0.5 mg/2 mL Neb INHALATION (20:27)
[2020-09-20] VITALS (19 sets, daily range): BP systolic 91–149; BP diastolic 50–83; PULSE 72–96; RESP 17–21; TEMP 36.4–37.1; O2SAT 90–97
[2020-09-20] MEDS: ipratropium-albuterol 3 mL Neb INHALATION ×4 (02:58→20:22)
[2020-09-20] MEDS: potassium chloride ER 10 mEq Tablet PO (06:03)
[2020-09-20] MEDS: pantoprazole DR 40 mg Tablet PO (06:03)
[2020-09-20] MEDS: cilostazol 100 mg Tablet 50 MG PO ×2 (06:03→17:02)
[2020-09-20] MEDS: BuSPIRONE 10 mg Tablet 15 MG PO ×2 (06:04→17:02)
[2020-09-20] MEDS: budesonide 0.5 mg/2 mL Neb INHALATION ×2 (08:08→20:22)
[2020-09-20] MEDS: dilTIAZem ER (24HR) 180 mg Capsule PO (08:28)
[2020-09-20] MEDS: tamsulosin 0.4 mg Capsule PO (08:28)
[2020-09-20] MEDS: metoprolol tartrate 50 mg Tablet 100 MG PO ×2 (08:28→21:56)
[2020-09-20] MEDS: apixaban 5 mg Tablet PO ×2 (08:29→17:03)
[2020-09-20] MEDS: folic acid 1 mg Tablet PO (08:29)
[2020-09-20] MEDS: lisinopril 10 mg Tablet PO (08:29)
[2020-09-20] MEDS: thiamine 100 mg Tablet PO (08:29)
[2020-09-20] MEDS: FUROsemide 10 mg/mL SDV 10mL 80 MG IVP ×2 (08:29→21:46)
[2020-09-20 09:39] LABS: Alanine Aminotransferase 27 U/L (0-41); Albumin Level 3.5 g/dL (3.5-5.2); Alkaline Phosphatase 126 IU/L (40-130); Aspartate Amino Transferase 23 U/L (0-40); Blood Urea Nitrogen 32 mg/dL (8-23); Carbon Dioxide 31 mmol/L (22-29); Chloride 95 mmol/L (98-107); Globulin 2.8 g/dL (1.3-4.6); Glucose 180 mg/dL (65-115); Osmolality Calculated 297 mOsm/kg (285-295); Sodium 138 mmol/L (136-145); Total Bilirubin 0.6 mg/dL (0.15-1.2); Total Protein 6.3 g/dL (6.6-8.7)
[2020-09-20 09:40] LABS: Anion Gap 15.7 (5-19)
[2020-09-20 09:41] LABS: Potassium 3.7 mmol/L (3.5-5.1)
[2020-09-20] MEDS: atorvastatin 40 mg Tablet 20 MG PO (17:02)
[2020-09-20] MEDS: mirtazapine 30 mg Tablet PO (17:02)
--- NOTE | 2020-09-20 17:14 | PM.PN ---
Subjective Subjective: Interval history: Respiratory status improved today, on supplemental O2 of 2 to 3 L/min, desats with exertion down to early 80s. Will require home O2 eval prior to discharge. Lower extremity edema improving but still significant. Kidney function is stable. Medications: Reviewed: Yes Vitals/I&O/Wt Last Vital Signs Temp 97.8 F 09/20/20 15:47 Pulse 72 09/20/20 15:47 Resp 18 09/20/20 15:47 BP 93/53 09/20/20 15:47 Pulse Ox 93 09/20/20 15:47 09/20/20 09/20/20 09/20/20 06:59 14:59 22:59 Intake Total 740 / 1700 1560 / 1560 Output Total 600 / 4850 1650 / 1650 Balance 140 / -3150 -90 / -90 Physical Exam Narrative: EXAM NARRATIVE: GEN: Awake, alert and oriented, no acute distress CVS: S1S2 N RS: Clear to auscultation bilaterally all areas. Abd: Soft, nt/nd , bs+ TACTICAL RESPONSE GROUP OFFICER: no focal neuro deficits Extremities 2+ pitting edema, improving over previously but still pretty significant. Data : 09/17/20 18:28 09/20/20 08:53 A&P Assessment and plan (1) Atrial fibrillation with RVR: Status: Acute (2) CHF exacerbation: Status: Acute (3) Peripheral vascular disease of extremity: Status: Acute (4) Hypertension: Status: Acute Qualifiers: Hypertension type: essential hypertension Qualified Code(s): I10 - Essential (primary) hypertension (5) Chronic anticoagulation: Status: Acute Additional A&P Information A. fib with acute RVR, rate is now currently well controlled on p.o. Cardizem. Remains off Cardizem drip since yesterday. continue Eliquis Acute CHF exacerbation He has history of preserved ejection fraction heart failure with severe mitral valve regurgitation Still with 2+ pitting edema, improving, however still significant, continue IV diuresis with 80 IV Lasix every 12. Monitor renal function closely. Likely transition to oral diuretics in the next 24 to 48 hours. COPD , episode of acute bronchospasm on September 19 associated with dyspnea tachypnea and following O2 sats to 87%, improved after nebulization. Continue standing DuoNeb, budesonide inhalation. Hold off on any steroids at this present time is much improved with nebulization alone.. Cardiac diet DVT prophylaxis : Eliquis Sleep apnea: Would use auto CPAP History of bladder and prostate cancer: Continue tamsulosin, resume methanamaine Continue home medications incl buspirojne, methanamaine, prortonix, zolpidem Full code Attestations Medical Necessity Statement*: Ongoing need for IV diuresis, respiratory optimization prior to discharge. Coding Level of Care Code Acute Rack Puller for Chg Fwd Diagnoses Atrial fibrillation with RVR I48.91 CHF exacerbation I50.9 Peripheral vascular disease of extremity I73.9 Hypertension I10 Hypertension type: essential hypertension Chronic anticoagulation Z79.01
[2020-09-20] MEDS: ropinirole 2 mg Tablet 3 MG PO (18:13)
[2020-09-21] VITALS (12 sets, daily range): BP systolic 110–136; BP diastolic 66–76; PULSE 75–93; RESP 18–20; TEMP 36.4–36.7; O2SAT 88–99
[2020-09-21] MEDS: ipratropium-albuterol 3 mL Neb INHALATION ×2 (03:08→08:29)
[2020-09-21] MEDS: BuSPIRONE 10 mg Tablet 15 MG PO (05:45)
[2020-09-21] MEDS: cilostazol 100 mg Tablet 50 MG PO (05:46)
[2020-09-21] MEDS: pantoprazole DR 40 mg Tablet PO (05:46)
[2020-09-21] MEDS: potassium chloride ER 10 mEq Tablet PO (05:46)
[2020-09-21] MEDS: FUROsemide 10 mg/mL SDV 10mL 80 MG IVP (08:16)
[2020-09-21] MEDS: budesonide 0.5 mg/2 mL Neb INHALATION (08:29)
[2020-09-21] MEDS: folic acid 1 mg Tablet PO (09:19)
[2020-09-21] MEDS: dilTIAZem ER (24HR) 180 mg Capsule PO (09:20)
[2020-09-21] MEDS: thiamine 100 mg Tablet PO (09:20)
[2020-09-21] MEDS: apixaban 5 mg Tablet PO (09:20)
[2020-09-21] MEDS: lisinopril 10 mg Tablet PO (09:20)
[2020-09-21] MEDS: tamsulosin 0.4 mg Capsule PO (09:20)
[2020-09-21] MEDS: metoprolol tartrate 50 mg Tablet 100 MG PO (09:21)
--- NOTE | 2020-09-21 11:13 | P.DS_ITS ---
Discharge Providers Date of Admission: 09/18/20 17:39 Date of Discharge: September 21, 2020 Attending Provider at Admission: Dionne Boudreaux MD Attending Provider at Discharge: Gen Jaimes MD Primary Care Provider: Randolph Carlson MD Diagnoses at Discharge Discharge Diagnosis (1) Atrial fibrillation with RVR: Status: Resolved (2) CHF exacerbation: Status: Resolved (3) Peripheral vascular disease of extremity: Status: Chronic (4) Hypertension: Status: Chronic Qualifiers: Hypertension type: essential hypertension Qualified Code(s): I10 - Essential (primary) hypertension (5) Chronic anticoagulation: Status: Chronic Reason for Visit Reason for Visit: RESPIRATORY DISTRESS Hospital Course Hospital Course 75 year old male who has history of alcohol abuse, chronic atrial fibrillation, anticoagulation, preserved ejection fraction heart failure with severe mitral regurgitation, sleep apnea, combined obstructive restrictive pulmonary disease, bladder and prostate cancer, multiple UTIs previous urine culture grew Enterococcus faecalis, he was also intubated in June due to COPD exacerbation presented with chief complaint of shortness of breath. He was admitted for the management of A. fib with acute RVR as well as Acute on chronic HFpEF exacerbation. He was kept on I.V Cardizem drip initially and was later switched to po cardiazem.His h/r was well controlled and he was discharged on his home dose of cardizem as well as metoprolol.[place]. For his HFpEF exacerbation he diuressed well with I.V lasix and at the time of discharge his SOB has resolved.He was di scharged on his home dose of po bumex.He responded well to the above medical management and was discharged in stable condition.He will follow cardiology as outpatient in 1 week. Physical Exam Const: COMMON NORMALS: patient oriented x3 HENMT: COMMON NORMALS: normocephalic, atraumatic, hearing grossly normal bilaterally and external ears normal HEAD & SCALP: normocephalic and atraumatic EXTERNAL EAR: Yes external ears normal Eye: COMMON NORMALS: no scleral icterus GENERAL EYE: appearance normal, both eyes and all related structures Chest: COMMONS NORMALS: normal inspection of the chest and normal palpation of entire chest wall CHEST: Yes Symmetrical chest wall rise Resp: COMMON NORMALS: normal respiratory effort, No retractions, No use of accessory muscles and clear to auscultation bilaterally EFFORT & INSPECTION: Yes symmetric chest movement AUSCULTATION: clear to auscultation bilaterally Cardio: COMMON NORMALS: regular rate, regular rhythm, S1 normal heart sound present, S2 normal heart sound present, No gallops present (Cardio), No murmurs present (Cardio), No rub (Cardio) and Peripheral pulses 2+ throughout RATE: regular rate RHYTHM: regular rhythm HEART SOUNDS: S1 normal heart sound present and S2 normal heart sound present PERIPHERAL PULSES: Peripheral puls es 2+ throughout GI: COMMON NORMALS: Normal to inspection, nondistended, normoactive bowel sounds present, Soft to palpation, non-tender, No hepatosplenomegaly present and no masses AUSCULTATION: Yes normoactive bowel sounds PALPATION: Yes Soft to palpation and Yes No hepatosplenomegaly present RECTAL EXAM: Yes deferred Extremity: COMMON NORMALS: no clubbing, cyanosis or edema and no pedal edema NARRATIVE EXTREMITY EXAM: 1+ b/l l/e pitting edema Neuro: COMMON NORMALS: patient oriented x3 Discharge Data Data Completed and Pending: Completed Studies During Hospitalization Category Date Time Status XR chest 1V rebecca ble [id number] Urgent Exams 09/17/20 17:59 Completed Pending at discharge Category Date Time Status Comprehensive Met abolic Panel Routi ne Lab 09/21/20 10:04 Ordered Labs from last 24 hours 09/21/20 09/21/20 08:56 06:30 Sodium Cancelled Cancelled Potassium Cancelled Cancelled Chloride Cancelled Cancelled Carbon Dioxide Cancelled Cancelled Anion Gap Cancelled Cancelled BUN Cancelled Cancelled Creatinine Cancelled Cancelled GFR Calculation Cancelled Cancelled Glucose Cancelled Cancelled Calculated Osmolal ity Cancelled Cancelled Calcium Cancelled Cancelled Total Bilirubin Cancelled Cancelled AST Cancelled Cancelled ALT Cancelled Cancelled Alkaline Phosphata se Cancelled Cancelled Total Protein Cancelled Cancelled Albumin Cancelled Cancelled Globulin Cancelled Cancelled Vitals: Last Vital Signs Temp 97.8 F 09/21/20 07:32 Pulse 91 09/21/20 08:39 Resp 20 H 09/21/20 08:31 BP 115/76 09/21/20 07:32 Pulse Ox 88 L 09/21/20 08:31 Discharge Plan Discharge Patient Disposition: Home Condition: Stable Prescriptions: Continued ascorbate calcium (vitamin C) 500 mg tablet 1 gm PO BID@ RF: 0 albuterol sulfate 2.5 mg /3 mL (0.083 %) solution for nebulization 2.5 mg inhalation Q6H PRN (Reason: Shortness Of Breath) RF: 0 metoprolol tartrate 25 mg tablet 50 mg PO Q12H RF: 0 bumetanide 1 mg tablet 1 mg PO DAILY@0600 RF: 0 ropinirole 3 mg Tablet 3 mg PO DAILY@19 RF: 0 mirtazapine 30 mg Tablet 30 mg PO DAILY@18 RF: 0 ferrous sulfate [iron] 325 mg (65 mg iron) Tablet 325 mg PO DAILY@06 RF: 0 cilostazol 50 mg tablet 50 mg PO BID@ RF: 0 pantoprazole [Protonix] 40 mg tablet,delayed release (DR/EC) 40 mg PO DAILY@06 RF: 0 thiamine mononitrate (vit B1) [Vitamin B-1 (mononitrate)] 100 mg tablet 100 mg PO DAILY@06 RF: 0 diltiazem HCl [DILT-XR] 180 mg capsule,ext.rel 24h degradable 360 mg PO DAILY@0600 RF: 0 potassium chloride 10 mEq tablet,ER particles/crystals 10 meq PO DAILY@0600 RF: 0 Chantix Continuing Month Box 1 mg tablet 1 mg PO DAILY@06 RF: 0 fluticasone propion-salmeterol [Advair Diskus] 250-50 mcg/dose blister with device 1 puff inhalation BID@599,1800 RF: 0 isosorbide mononitrate 20 mg tablet 20 mg PO BID@ RF: 0 pravastatin [Pravachol] 40 mg tablet 40 mg PO DAILY@18 RF: 0 tamsulosin [Flomax] 0.4 mg capsule 0.4 mg PO DAILY@06 RF: 0 fluticasone propionate [Flonase Allergy Relief] 50 mcg/actuation spray,suspension 1 spray INTRANASAL BID PRN (Reason: Allergy Symptoms) RF: 0 Spiriva Respimat 2.5 mcg/actuation mist 1 puff INHALATION BID@00,1800 RF: 0 Eliquis 5 mg tablet 5 mg PO BID@ RF: 0 Hold Instructions: Resume on 04/27/20. albuterol sulfate 90 mcg/actuation HFA aerosol inhaler 2 inh INHALATION BID PRN (Reason: shortness of breath or wheezing) RF: 0 sulfamethoxazole-trimethoprim [Bactrim DS] 800-160 mg Tablet 1 tab PO BID RF: 0 methenamine hippurate 1 gram Tablet 1 g PO BID@ RF: 0 lisinopril 10 mg Tablet 10 mg PO DAILY RF: 0 buspirone 15 mg Tablet 15 mg PO BID@ RF: 0 zolpidem 12.5 mg Tablet,Ext Release Multiphase 12.5 mg PO BEDTIME RF: 0 folic acid 1 mg Tablet 1 mg PO DAILY Qty: 30 RF: 0 chlordiazepoxide HCl 25 mg capsule 50 mg PO Q8H Qty: 36 RF: 0 Discontinued furosemide [Lasix] 40 mg Tablet 40 mg PO DAILY RF: 0 Discharge Orders: Discharge Order (Routine); Ordered 09/21/20 Ordered By: Gen Jaimes Referrals: [facility] [Outside] Randolph Carlson MD [Primary Care Provider] - 09/28/20 2:30 pm Connie Box FNP [Nurse Practitioner] - 09/29/20 2:00 pm (APPOINTMENT [facility] WITH DR [facility]T [facility]) Discharge Diet: Advance as tolerated Discharge Activity: Resume usual activity Patient Instructions: Atrial Fibrillation, Heart Palpitations, Heart Failure (DC), Urinary Tract Infection in Men (GEN), CHF Stoplight, Opioid Safety Discharge Attestations Time Spent in Discharge Care*: less than 30 min Specific Discharge Activities: educating patient, educating and/or supporting family/caregiver, discussing with showcase trimmer/social workers/dc planners, documenting/other paperwork and evaluating patient/reviewing data Status at Discharge: Cognitive status at discharge: cognitively intact , Behavioral status at discharge: cooperative , Quality Metrics Clinical Quality Measures During this hospital stay, did patient experience: None Coding Level of Care Code Acute Chg FW DC note Exam Comprehensive Diagnoses Atrial fibrillation with RVR I48.91 CHF exacerbation I50.9 Peripheral vascular disease of extremity I73.9 Hypertension I10 Hypertension type: essential hypertension Chronic anticoagulation Z79.01
--- NOTE | 2020-09-21 11:27 | PC.SOCIAL ---
Pg 2 IMM. Explained to pt Pg 2 IMM. No questions voiced. Provided pt a copy. Initialed, dated, & timed a copy & placed in chart.
[2020-09-21 12:48] LABS: Alanine Aminotransferase 23 U/L (0-41); Albumin Level 3.2 g/dL (3.5-5.2); Alkaline Phosphatase 113 IU/L (40-130); Anion Gap 13.7 (5-19); Aspartate Amino Transferase 15 U/L (0-40); Blood Urea Nitrogen 42 mg/dL (8-23); Calcium 8.7 mg/dL (8.5-10.5); Carbon Dioxide 29 mmol/L (22-29); Chloride 98 mmol/L (98-107); Globulin 2.7 g/dL (1.3-4.6); Glucose 121 mg/dL (65-115); Osmolality Calculated 296 mOsm/kg (285-295); Potassium 3.7 mmol/L (3.5-5.1); Sodium 137 mmol/L (136-145); Total Bilirubin 0.5 mg/dL (0.15-1.2); Total Protein 5.9 g/dL (6.6-8.7)
--- NOTE | 2020-09-21 15:34 | PC.NURSE ---
pt verbalizes understanding of discharge instructions home mediations, follow up appointments, and the CHF stoplight. IV has been removed and SS has arranged a ride with [employer]
== END 2020-09-21 16:00 | disposition home health service (06) | DRG 308 ==
LOC: ER 21:00 → MEDSURG 09-18 00:18
PROVIDERS: Student in an Organized Health Care Education/Training Program; Admitting Provider Internal Medicine; Emergency Provider Family Medicine; PCP Family Medicine; Visit Provider Internal Medicine
DX: I48.20 Chronic atrial fibrillation, unspecified (principal); I50.33 Acute on chronic diastolic (congestive) heart failure; J44.1 Chronic obstructive pulmonary disease with (acute) exacerbation; I11.0 Hypertensive heart disease with heart failure; F10.10 Alcohol abuse, uncomplicated; I34.0 Nonrheumatic mitral (valve) insufficiency; G47.33 Obstructive sleep apnea (adult) (pediatric); Z85.46 Personal history of malignant neoplasm of prostate; Z87.440 Personal history of urinary (tract) infections; F41.8 Other specified anxiety disorders; E78.5 Hyperlipidemia, unspecified; I73.9 Peripheral vascular disease, unspecified; Z87.442 Personal history of urinary calculi; Z87.891 Personal history of nicotine dependence; Z79.51 Long term (current) use of inhaled steroids; Z79.01 Long term (current) use of anticoagulants
CPT/HCPCS: 36415; 36600; 71045; 80048; 80053; 80307; 81003; 82805; 83605; 83735; 83880; 84484; 85025; 85610; 93005; 94640; 94762; 96365; 96366; 96375; 99285; G0378; J1940; J3490; J7626

== ENCOUNTER 2020-09-22 20:00 | Outpatient (CLI) | payer MEDICARE, MEDICAID, SELFPAY | END 2020-09-22 20:01 | disposition home or self-care (01) | LOC: SLEEP 09-23 11:18 | PROVIDERS: PCP Family Medicine; Visit Provider Internal Medicine Critical Care Medicine | DX: G47.33 Obstructive sleep apnea (adult) (pediatric) (principal) | CPT/HCPCS: 95811 ==

== ENCOUNTER → 2020-12-09 15:23 | Outpatient (BNVA) | payer MEDICARE, MEDICAID, SELFPAY | PROVIDERS: PCP Family Medicine; Visit Provider Urology | DX: R82.71 Bacteriuria (principal); C67.8 Malignant neoplasm of overlapping sites of bladder; N30.80 Other cystitis without hematuria | CPT/HCPCS: 81003; 87077; 87086; 87184 ==

== ENCOUNTER 2021-02-20 15:01 | Emergency (ER) | payer MEDICARE, MEDICAID, SELFPAY ==
[2021-02-20 15:05] VITALS: BP 141/89; PULSE 74; RESP 20; TEMP 36.9; O2SAT 95; BMI 29.7
--- NOTE | 2021-02-20 15:07 | XRR_ITS ---
PROCEDURE INFORMATION: Exam: XR Chest Exam date and time: 02/20/2021 3:07 PM Age: 75 years old Clinical indication: Dyspnea TECHNIQUE: Imaging protocol: XR of the chest. Views: 1 view. COMPARISON: CR XR chest 1V portable [id number] 09/17/2020 6:02 PM FINDINGS: Lungs: Diffuse interstitial prominence compatible with pulmonary fibrosis is again identified. There is also new superimposed mild CHF on today's exam with cephalization of flow, increase interstitial edema and prominent Thi B lines. No lobar consolidation. Pleural spaces: There are probable small pleural effusions versus pleural thickening. Heart/Mediastinum: The heart is enlarged. Bones/joints: No acute abnormality. XR/XR chest 1V portable [id number] IMPRESSION: Pulmonary fibrosis with superimposed interstitial CHF.
--- NOTE | 2021-02-20 15:36 | ED_ITS ---
HPI - SOB/Dyspnea General: Chief Complaint: Shortness of Breath/Dyspnea Stated Complaint: SOB/ CP Time Seen by Provider: 02/20/21 15:13 History of Present Illness: HPI Narrative: 75-year-old male presents emergency room complaining of shortness of breath and orthopnea. A little chest tightness as well. He was given 60 mg dexamethasone and DuoNeb in route. He states his chest tightness has improved he is gained 10 pounds in the last 24 hours he has known history of congestive heart failure and recently had his Lasix increased to 40 mg twice a day from once a day. He denies any radiation of pain no fever sweats or chills. MD elicited complaint: shortness of breath and cough Pertinent past history: COPD and congestive heart failure Onset (ago): day(s) Context: occurred during exertion Timing: constant Severity: moderate Exacerbating factors: lying flat, exertion and coughing Relieving factors: oxygen, rest and upright position Known history of: COPD and congestive heart failure Associated symptoms: Reports chest congestion, chest pain and cough; Deny abdominal pain, diaphoresis, dizziness, extremity pain, fever(s), hemoptysis, lightheadedness, myalgias, nausea, orthopnea, palpitations, paresthesias, polydipsia, rash, sense of impending doom, syncope or vomiting Treatment prior to arrival: oxygen Review of Systems Const: Denies: fever(s) or diaphoresis ENMT: Denies: throat pain, ear or mastoid pain, nasal discharge or nasal congestion Card: Reports: chest pain; Denies: palpitations, lightheadedness, syncope or orthopnea Resp: Reports: chest congestion; Denies: hemoptysis GI: Denies: abdominal pain, nausea or vomiting : Denies: flank pain, dysuria, urinary frequency or urinary urgency Musc: Denies: extremity pain Skin/Breast: Denies: rash or pruritus Neuro: Denies: dizziness Endo: Denies: polydipsia PFSH ED PFSH: Medical History Anxiety and depression Atrial fibrillation Atrial fibrillation Atrial fibrillation with RVR Bladder cancer CHF exacerbation Chronic anticoagulation COPD (chronic obstructive pulmonary disease) COPD (chronic obstructive pulmonary disease) Cystitis cystica Genital lesion, male History of prostate cancer Hyperlipidemia Hypertension Iron deficiency anemia Left atrial enlargement 4.9 cm width Mitral regurgitation Obstructive sleep apnea Peripheral vascular disease of extremity Renal calculi Surgical History H/O esophagogastroduodenoscopy H/O eye surgery H/O eye surgery detached retina left eye History of colonoscopy (~2004) History of laparotomy History of lithotripsy History of ureter stent Family History Mother , at age 94 Hypertension Heart disease Father , at age 72 Renal disease Heart disease Brother Heart disease Other CAD (coronary artery disease) Cancer Denies family history of Anesthesia complication Bleeding disorder Social History Quit status (tobacco): has quit using tobacco Year quit tobacco: 2020 - 1PPD x 50 Years Second hand smoke exposure: Yes Smoking risk assessment/counseling performed?: No Alcohol intake: current Alcohol intake frequency: 3 or more drinks per day Alcohol type: hard liquor Desire information about alcohol rehabilitation?: No Counseling given: Yes Counseling given: No Adopted: No Caregiver/support person: No Lives independently: Yes Household members: none Marital status: Single Current occupational status: retired History of recent travel: No Current gender identity: Male Physical Exam Const: COMMON NORMALS: no acute distress GENERAL APPEARANCE: cooperative and comfortable ORIENTATION/CONSCIOUSNESS: Yes awake, Yes oriented to person, Yes oriented to place and Yes oriented to time HENMT: COMMON NORMALS: normocephalic, atraumatic and hearing grossly normal bilaterally HEAD & SCALP: normocephalic and atraumatic Neck/C-Spine: COMMON NORMALS: no JVD Resp: COMMON NORMALS: normal respiratory effort, No retractions, No use of accessory muscles and clear to auscultation bilaterally AUSCULTATION: clear to auscultation bilaterally Cardio: COMMON NORMALS: no JVD, regular rate, regular rhythm and No murmurs present (Cardio) RATE: regular rate RHYTHM: regular rhythm GI: COMMON NORMALS: Soft to palpation and No hepatosplenomegaly present AUSCULTATION: Yes normoactive bowel sounds PALPATION: Yes Soft to palpation, No Tenderness to palpation present (GI), No Guarding due to palpation present (GI) and Yes No hepatosplenomegaly present Extremity: COMMON NORMALS: normal to inspection, capillary refill normal, no clubbing, cyanosis or edema, no calf tenderness and no pedal edema Neuro: SENSORIUM/ORIENTATION: Yes oriented to person, Yes oriented to place and Yes oriented to time Skin: COMMON NORMALS: no rashes or lesions noted GENERAL SKIN EXAM: no rashes or lesions noted Course Vital Signs: Vital signs: Vital Signs Temperature 98.5 F 02/20/21 15:05 Pulse Rate 84 02/20/21 18:49 Respiratory Rate 20 H 02/20/21 18:49 Blood Pressure 141/89 02/20/21 17:39 Pulse Oximetry 92 02/20/21 18:49 MDM - SOB/Dyspnea MDM Narrative: Medical decision making narrative: Patient improved with diuresis.. In addition I did get some improvement from the nebulizer used in route via the ordering to have him use a Medrol Dosepak we will put him on doxycycline and have him continue to aggressively use albuterol throughout the day every 4-6 hours as needed. If He has any worsening symptoms return to the emergency room.. Lab Data: Labs: Lab Results 02/20/21 02/20/21 02/20/21 Range/Units 15:40 15:40 15:40 WBC 7.2 (4.0-10.0) 10^3/ uL RBC 5.41 H (4.1-5.3) 10^6/u L Hgb 16.0 (11.7-16.6) g/dL Hct 49.9 (42.0-52.0) % MCV 92.2 (80-94) fl MCH 29.6 (28.0-34.0) pg MCHC 32.1 (30.0-36.0) g/dL RDW 15.6 H (12.1-15.1) % Plt Count 270 (130-400) 10^3/c mm MPV 9.0 (7.4-10.4) fL Neut % (Auto) 62.0 % Lymph % (Auto) 25.0 % [place] % (Auto) 8.6 % Eos % (Auto) 3.3 % Baso % (Auto) 0.8 % Neut # (Auto) 4.46 (1.8-7.7) 10^3/u L Lymph # (Auto) 1.8 (0.8-4.8) 10^3/u L [place] # (Auto) 0.6 (0.2-0.9) 10^3/u L Eos # (Auto) 0.2 (0.0-0.8) 10^3/u L Baso # (Auto) 0.1 (0.0-0.1) 10^3/u L Nucleated RBC % (a uto) 0.3 % Nucleated RBCs # 0.0 /100WBC Sodium 141 (136-145) mmol/L Potassium 4.9 (3.5-5.1) mmol/L Chloride 101 (98-107) mmol/L Carbon Dioxide 33 H (22-29) mmol/L Anion Gap 11.9 (5-19) BUN 14 (8-23) mg/dL Creatinine 0.9 (0.7-1.2) mg/dL GFR Calculation Not Reportable Glucose 102 (65-115) mg/dL Calculated Osmolal ity 293 (285-295) mOsm/k g Calcium 9.1 (8.5-10.5) mg/dL Troponin T Baselin e 38 H (0-15) ng/L Troponin T 120 Min algaaciq (0-15) ng/L Delta Troponin T (0-10) ABS# NT-Pro-B Natriuret Pep 277 H (0-125) pg/mL 02/20/21 Range/Units 17:31 WBC (4.0-10.0) 10^3/ uL RBC (4.1-5.3) 10^6/u L Hgb (11.7-16.6) g/dL Hct (42.0-52.0) % MCV (80-94) fl MCH (28.0-34.0) pg MCHC (30.0-36.0) g/dL RDW (12.1-15.1) % Plt Count (130-400) 10^3/c mm MPV (7.4-10.4) fL Neut % (Auto) % Lymph % (Auto) % [place] % (Auto) % Eos % (Auto) % Baso % (Auto) % Neut # (Auto) (1.8-7.7) 10^3/u L Lymph # (Auto) (0.8-4.8) 10^3/u L [place] # (Auto) (0.2-0.9) 10^3/u L Eos # (Auto) (0.0-0.8) 10^3/u L Baso # (Auto) (0.0-0.1) 10^3/u L Nucleated RBC % (a uto) % Nucleated RBCs # /100WBC Sodium (136-145) mmol/L Potassium (3.5-5.1) mmol/L Chloride (98-107) mmol/L Carbon Dioxide (22-29) mmol/L Anion Gap (5-19) BUN (8-23) mg/dL Creatinine (0.7-1.2) mg/dL GFR Calculation Glucose (65-115) mg/dL Calculated Osmolal ity (285-295) mOsm/k g Calcium (8.5-10.5) mg/dL Troponin T Baselin e (0-15) ng/L Troponin T 120 Min algaaciq 37.35 H (0-15) ng/L Delta Troponin T -0.65 L (0-10) ABS# NT-Pro-B Natriuret Pep (0-125) pg/mL Discharge Plan Discharge Patient Disposition: Home Clinical Impression: COPD exacerbation, Congestive heart failure Condition: Stable Prescriptions: New doxycycline hyclate 100 mg capsule 100 mg PO BID 10 Days Qty: 20 RF: 0 Medrol (Syed) 4 mg tablets,dose pack See Rx Instructions .ROUTE .COMPLEX Qty: 21 RF: 0 No Action ascorbate calcium (vitamin C) 500 mg tablet 1,000 mg PO BID@ RF: 0 albuterol sulfate 2.5 mg /3 mL (0.083 %) solution for nebulization 2.5 mg inhalation Q6H PRN (Reason: Shortness Of Breath) RF: 0 furosemide 40 mg tablet 40 mg PO BID RF: 0 amitriptyline 10 mg tablet 10 mg PO BEDTIME RF: 0 lisinopril 2.5 mg tablet 2.5 mg PO DAILY RF: 0 vitamin E 200 unit capsule 200 unit PO DAILY RF: 0 cilostazol 50 mg tablet 50 mg PO BID@ Qty: 60 RF: 6 ropinirole 3 mg Tablet 3 mg PO DAILY@ RF: 0 mirtazapine 30 mg Tablet 30 mg PO DAILY@ RF: 0 ferrous sulfate [iron] 325 mg (65 mg iron) Tablet 325 mg PO DAILY@06 RF: 0 thiamine mononitrate (vit B1) [Vitamin B-1 (mononitrate)] 100 mg tablet 100 mg PO DAILY@06 RF: 0 fluticasone propion-salmeterol [Advair Diskus] 250-50 mcg/dose blister with device 1 puff inhalation BID@0600,1800 RF: 0 potassium chloride 10 mEq tablet,ER particles/crystals 10 meq PO BID RF: 0 isosorbide mononitrate 20 mg tablet 20 mg PO BID@,18 RF: 0 pravastatin [Pravachol] 40 mg tablet 40 mg PO DAILY@18 RF: 0 tamsulosin [Flomax] 0.4 mg capsule 0.4 mg PO DAILY@06 RF: 0 fluticasone propionate [Flonase Allergy Relief] 50 mcg/actuation spray,suspension 1 spray INTRANASAL BID PRN (Reason: Allergy Symptoms) RF: 0 Spiriva Respimat 2.5 mcg/actuation mist 1 puff INHALATION BID@0600,1800 RF: 0 Eliquis 5 mg tablet 5 mg PO BID@,18 RF: 0 Hold Instructions: Resume on 04/27/20. albuterol sulfate 90 mcg/actuation HFA aerosol inhaler 2 inh INHALATION BID PRN (Reason: shortness of breath or wheezing) RF: 0 methenamine hippurate 1 gram Tablet 1 g PO BID@,18 RF: 0 buspirone 15 mg Tablet 15 mg PO BID@,18 RF: 0 folic acid 1 mg Tablet 1 mg PO DAILY Qty: 30 RF: 0 metoprolol tartrate 50 mg tablet 50 mg PO BID RF: 0 bumetanide 1 mg tablet 1 mg PO DAILY RF: 0 Diltia XT 180 mg Capsule,Ext.Rel 24h Degradable 180 mg PO DAILY RF: 0 lactulose 10 gram/15 mL solution 10 g PO TID PRN (Reason: Constipation) RF: 0 Discharge Orders: Discharge ED (Routine); Ordered 02/20/21 Ordered By: Rigoberto Doss Referrals: Randolph Carlson MD [Primary Care Provider] - Discharge Diet: Cardiac and Low Salt Discharge Activity: Increase activity as tolerated Patient Instructions: Opioid Safety Activity Restrictions/Additional Instructions: Use albuterol as needed. Start Medrol Dosepak tomorrow. Start doxycycline 100 mg twice daily. Continue the Lasix twice daily for now. You should follow-up with your primary care doctor within the next 3 to 4 days. If you are not feeling better or worsen recheck in the emergency room or with your primary care doctor. Coding Level of Care Code ED Medical Photographer for [facility]ar[facility] Exam Comprehensive
[2021-02-20 15:55] LABS: Basophils # 0.1 10^3/uL (0.0-0.1); Basophils % 0.8 %; Eosinophils # 0.2 10^3/uL (0.0-0.8); Eosinophils % 3.3 %; Hematocrit 49.9 % (42.0-52.0); Lymphocytes # 1.8 10^3/uL (0.8-4.8); Mean Corpuscular HGB Conc 32.1 g/dL (30.0-36.0); Mean Corpuscular Hemoglobin 29.6 pg (28.0-34.0); Mean Corpuscular Volume 92.2 fl (80-94); Monocytes # 0.6 10^3/uL (0.2-0.9); Monocytes % 8.6 %; Neutrophils # 4.46 10^3/uL (1.8-7.7); Nucleated Red Blood Cells % 0.3 %; Platelet Count 270 10^3/cmm (130-400); Red Blood Count 5.41 10^6/uL (4.1-5.3); Red Cell Distribution Width 15.6 % (12.1-15.1); White Blood Count 7.2 10^3/uL (4.0-10.0)
[2021-02-20 16:09] VITALS: PULSE 81; RESP 17; O2SAT 94
[2021-02-20] MEDS: ipratropium-albuterol 3 mL Neb INHALATION (16:09)
[2021-02-20 16:15] VITALS: PULSE 81
[2021-02-20 16:15] LABS: Troponin(5th) Baseline 38 ng/L (0-15)
[2021-02-20 16:24] LABS: Anion Gap 11.9 (5-19); Blood Urea Nitrogen 14 mg/dL (8-23); Calcium 9.1 mg/dL (8.5-10.5); Carbon Dioxide 33 mmol/L (22-29); Chloride 101 mmol/L (98-107); Glucose 102 mg/dL (65-115); NT Pro B Type Natriuretic Pept 277 pg/mL (0-125); Osmolality Calculated 293 mOsm/kg (285-295); Potassium 4.9 mmol/L (3.5-5.1); Sodium 141 mmol/L (136-145)
[2021-02-20] MEDS: predniSONE 20 mg Tablet 60 MG PO (16:32)
[2021-02-20] MEDS: FUROsemide 10 mg/mL SDV 10mL 60 MG IVP (16:32)
[2021-02-20] MEDS: aspirin 325 mg Tablet PO (16:32)
--- NOTE | 2021-02-20 17:07 | ECG_ITS ---
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 Measurements Intervals [place] Rate: 87 P: AR: QRS: 5 QRSD: 97 T: 68 QT: 359 QTc: 433 Interpretive Statements ATRIAL FIBRILLATION ABNORMAL RHYTHM ECG Compared to ECG 09/17/2020 22:33:22 No significant changes Electronically Signed On 02-22-2021 21:38:47 CDT by Marita Ansari M.D. [id number]
[2021-02-20 17:39] VITALS: BP 141/89; O2SAT 91
[2021-02-20 18:04] LABS: Troponin 5 2HR 37.35 ng/L (0-15)
[2021-02-20 18:07] LABS: Troponin 5 2HR Delta -0.65 ABS# (0-10)
[2021-02-20 18:49] VITALS: PULSE 84; RESP 20; O2SAT 92
== END 2021-02-20 18:50 | disposition home or self-care (01) ==
PROVIDERS: Emergency Medicine; Emergency Provider Family Medicine; PCP Family Medicine
DX: J44.1 Chronic obstructive pulmonary disease with (acute) exacerbation (principal); I11.0 Hypertensive heart disease with heart failure; I50.9 Heart failure, unspecified; Z79.01 Long term (current) use of anticoagulants; Z85.51 Personal history of malignant neoplasm of bladder; Z85.46 Personal history of malignant neoplasm of prostate; E78.5 Hyperlipidemia, unspecified; Z87.891 Personal history of nicotine dependence
CPT/HCPCS: 36415; 71045; 80048; 83880; 84484; 85025; 93005; 94640; 96374; 99284; J1940; J7512

== ENCOUNTER 2021-03-11 18:22 | Emergency (ER) | payer MEDICARE, MEDICAID, SELFPAY ==
[2021-03-11 18:30] VITALS: BP 145/82; PULSE 115; RESP 18; TEMP 37; O2SAT 95; BMI 29.4
--- NOTE | 2021-03-11 18:40 | XRR_ITS ---
PROCEDURE INFORMATION: Exam: XR Chest Exam date and time: 03/11/2021 6:40 PM Age: 76 years old Clinical indication: Sternal or substernal pain; Patient HX: HX copd/chf; Additional info: Chest pain TECHNIQUE: Imaging protocol: XR of the chest. Views: 1 view. Total images: 1 COMPARISON: CR (CHEST, ) 02/20/2021 3:26 PM FINDINGS: Lungs: Minimal bibasilar atelectasis. Senile fibrosis. COPD/chronic bronchitis. Pleural spaces: Unremarkable. No pleural effusion. No pneumothorax. Heart/Mediastinum: Cardiac structures and configuration with arteriosclerosis. Bones/joints: Unremarkable for age as visualized. XR/XR chest 1V portable [id number] IMPRESSION: Minimal bibasilar atelectasis.
--- NOTE | 2021-03-11 18:40 | CTR_ITS ---
PROCEDURE INFORMATION: Exam: CT Abdomen And Pelvis With Contrast Exam date and time: 03/11/2021 6:40 PM Age: 76 years old Clinical indication: Other: Hematuria; Prior surgery; Surgery type: [place] TECHNIQUE: Imaging protocol: Computed tomography of the abdomen and pelvis with contrast. Total images: 264 Radiation optimization: All CT scans at this facility use at least one of these dose optimization techniques: automated exposure control; mA and/or kV adjustment per patient size (includes targeted exams where dose is matched to clinical indication); or iterative reconstruction. Contrast material: OMNI 300; Contrast volume: 95 ml; Contrast route: INTRAVENOUS (IV); COMPARISON: MR abdomen wo/w con* [id number] 11/11/2019 11:33 AM RADIATION DOSE METRICS: Total DLP (mGy-cm): 1781.83 FINDINGS: Lungs: Limited assessment of the lung bases fails to reveal evidence for active cardiopulmonary process. Minimal dependent atelectasis. Senile fibrosis. Liver: Medial segment right hepatic lobe cavernous hemangioma dimensions approximately 55 mm x 15 mm. Second substantially smaller cavernous hemangioma dome of the right hepatic lobe measures only approximately 19 mm. Gallbladder and bile ducts: Unremarkable. No calcified stones. No ductal dilation. Pancreas: Moderate pancreatic atrophy. No visible pancreatic ductal ectasia, mass, or cystic structure. Spleen: Small splenule. Spleen otherwise unremarkable. Adrenal glands: Adrenal glands unremarkable. Kidneys and ureters: Mild enhancement of the bilateral ureters, right more involved than left, raising the potential for low-grade bilateral pyelitis. No findings raising suspicion for pyelonephritis, however. No hydronephrosis or perinephric fluid. Bilateral nephrolithiasis. No visible ureterolithiasis. Dominant stone left kidney measures 12 mm in maximum diameter. Cortical scarring inferior pole left kidney. Rare small simple renal cortical cysts bilaterally. No follow-up recommended. Stomach and bowel: Nonobstructive bowel pattern. No significant adynamic or reactive ileus. Heavy fecal residue consistent with constipation. Small duodenal diverticulum. Appendix: The appendix is visualized and appears noninflamed. Intraperitoneal space: No visible evidence of mesenteric lymphadenitis or active mesenteritis/panniculitis. No visible pneumoperitoneum or intraperitoneal ascites. Vasculature: The abdominal aorta is nonaneurysmal. Moderately advanced arterial sclerotic disease. Lymph nodes: No current visible evidence of active mesenteric or retroperitoneal lymphadenopathy. Urinary bladder: Urinary bladder unremarkable. No visible bladder stone or asymmetrical bladder wall thickening. Reproductive: Mild prostate hypertrophy. Bones/joints: No visible active or acute osseous pathology. Advanced degenerative disease and degenerative disc disease with disc space height loss and vacuum disc phenomenon lumbosacral spine. Facet arthrosis. Less significant degenerative disc disease visualized thoracic spine. Mild scoliotic curvature of the spine. Soft tissues: Obesity. CT/CT abdomen pelvis w con* [id number] IMPRESSION: 1. Mild enhancement of the bilateral ureters, right more involved than left, raising the potential for low-grade bilateral pyelitis. No findings raising suspicion for pyelonephritis, however. 2. Bilateral nephrolithiasis. 3. No visible hydronephrosis, hydroureter, or ureterolithiasis. 4. Constipation. 5. Hepatic cavernous hemangiomas. 6. Other nonurgent, nonemergent, chronic, and age related findings as detailed in text above. COMMENTS: Consistent with the [employer]'s Incidental Findings Committee white paper (J Am Daniel Radiol 2018): Any incidental renal lesion less than 1 cm or classified as too small to characterize, or any incidental cystic renal lesion characterized as simple-appearing, is likely benign. No follow-up imaging is recommended for these lesions per consensus recommendations based on imaging criteria. Radiation Dose CTDIVOL = (mGy): DLP = 1781.83 (mGy-cm)
[2021-03-11] MEDS: iohexol 300 mg/mL 100 mL Btl IV (18:56)
--- NOTE | 2021-03-11 19:20 | W.ED.MALEGU ---
HPI - Male Genitourinary General: Chief complaint: Urogenital-Male Stated complaint: BLOOD IN URINE Time Seen by Provider: 03/11/21 18:40 History of Present Illness: HPI Narrative: Patient is a 76-year-old male with a past medical history of bladder cancer and congestive heart failure. He is here with an episode of hematuria. Stated this happened yesterday had a large amount of gross urine. Has not had any clots then since then has had decreasing blood-tinged urine. He is currently taking Eliquis. Does have a remote history of bladder cancer no longer being treated for this as well as prostate cancer. Follows up with a urologist here in town has not had any pain with urination no back pain fevers chills chest pain nausea vomiting diarrhea altered mental status or syncope. No recent abdominal or back trauma Review of Systems General: Reports: 10 or more systems reviewed and unremarkable except in HPI and below PFSH ED PFSH: Medical History Anxiety and depression Atrial fibrillation Atrial fibrillation Atrial fibrillation with RVR Bladder cancer CHF exacerbation Chronic anticoagulation COPD (chronic obstructive pulmonary disease) COPD (chronic obstructive pulmonary disease) Cystitis cystica Genital lesion, male History of prostate cancer Hyperlipidemia Hypertension Iron deficiency anemia Left atrial enlargement 4.9 cm width Mitral regurgitation Obstructive sleep apnea Peripheral vascular disease of extremity Renal calculi Surgical History H/O esophagogastroduodenoscopy H/O eye surgery H/O eye surgery detached retina left eye History of colonoscopy (~2004) History of laparotomy History of lithotripsy History of ureter stent Family History Mother , at age 94 Hypertension Heart disease Father , at age 72 Renal disease Heart disease Brother Heart disease Other CAD (coronary artery disease) Cancer Denies family history of Anesthesia complication Bleeding disorder Social History Quit status (tobacco): has quit using tobacco Year quit tobacco: 2020 - 1PPD x 50 Years Second hand smoke exposure: Yes Smoking risk assessment/counseling performed?: No Alcohol intake: current Alcohol intake frequency: 3 or more drinks per day Alcohol type: hard liquor Desire information about alcohol rehabilitation?: No Counseling given: Yes Counseling given: No Adopted: No Caregiver/support person: No Lives independently: Yes Household members: none Marital status: Single Current occupational status: retired History of recent travel: No Current gender identity: Male Physical Exam Const: COMMON NORMALS: no acute distress, average body habitus and patient oriented x3 HENMT: COMMON NORMALS: normocephalic and atraumatic HEAD & SCALP: normocephalic and atraumatic Eye: COMMON NORMALS: Equal, round and reactive pupils present and EOMs intact bilaterally PUPIL: Yes Equal, round and reactive pupils present Neck/C-Spine: COMMON NORMALS: full ROM and no JVD Resp: COMMON NORMALS: normal respiratory effort, No retractions, No use of accessory muscles and clear to auscultation bilaterally AUSCULTATION: clear to auscultation bilaterally Cardio: COMMON NORMALS: no JVD, regular rate, regular rhythm and No murmurs present (Cardio) RATE: regular rate RHYTHM: regular rhythm GI: COMMON NORMALS: Normal to inspection, nondistended, normoactive bowel sounds present, Soft to palpation, non-tender, No hepatosplenomegaly present, no masses and no bruits PALPATION: Yes Soft to palpation and Yes No hepatosplenomegaly present : COMMON NORMALS: Yes no CVA tenderness BLADDER/KIDNEY EXAM: Yes no CVA tenderness Back/Pelvis: COMMON NORMALS: no CVA tenderness Extremity: COMMON NORMALS: normal to inspection, full ROM and no pedal edema (1+ pedal edema bilaterally) Neuro: COMMON NORMALS: patient oriented x3, CN's II-XII intact bilaterally, no focal motor deficits, no sensory deficits noted and deep tendon reflexes 2+ bilaterally Psych: COMMON NORMALS: mental status grossly normal and Normal thought process present THOUGHT PROCESS: Normal thought process present Skin: COMMON NORMALS: no rashes or lesions noted and no wounds GENERAL SKIN EXAM: no rashes or lesions noted Course ED course: Patient had just some mild microscopic hematuria with on his urine sample no evidence of infection. His CT showed some mild inflammation bilateral ureters but no evidence of pyelonephritis or kidney stones. Is likely he may have had a mild cystitis will go and treated with some Cipro. No demetria lesions in bladder or kidney will have him follow-up with his primary care provider for further follow-up since does have a history of bladder cancer and hematuria is of course concerning. Most likely some irritation from his ear ureteritis compounded with being on blood thinner. At this point etiology seems benign he is appropriate for discharge Vital Signs: Vital signs: Vital Signs Temperature 98.6 F 03/11/21 19:28 Pulse Rate 78 03/11/21 19:28 Respiratory Rate 15 03/11/21 19:28 Blood Pressure 124/82 03/11/21 19:28 Pulse Oximetry 95 03/11/21 19:28 MDM - Male Lab Data: Labs: Lab Results 03/11/21 03/11/21 03/11/21 19:41 19:41 19:41 WBC 8.2 10^3/uL 10^3/ uL (4.0-10.0) RBC 4.67 10^6/uL 10^6 /uL (4.1-5.3) Hgb 14.3 g/dL g/dL (11.7-16.6) Hct 43.8 % % (42.0-52.0) MCV 93.8 fl fl (80-94) MCH 30.6 pg pg (28.0-34.0) MCHC 32.6 g/dL g/dL (30.0-36.0) RDW 16.0 % H % (12.1-15.1) Plt Count 225 10^3/cmm 10^3 /cmm (130-400) MPV 9.7 fL fL (7.4-10.4) Neut % (Auto) 69.7 % % Lymph % (Auto) 16.6 % % [place] % (Auto) 9.8 % % Eos % (Auto) 3.0 % % Baso % (Auto) 0.7 % % Neut # (Auto) 5.72 10^3/uL 10^3 /uL (1.8-7.7) Lymph # (Auto) 1.4 10^3/uL 10^3/ uL (0.8-4.8) [place] # (Auto) 0.8 10^3/uL 10^3/ uL (0.2-0.9) Eos # (Auto) 0.3 10^3/uL 10^3/ uL (0.0-0.8) Baso # (Auto) 0.1 10^3/uL 10^3/ uL (0.0-0.1) Nucleated RBC % (a uto) 0 % % Nucleated RBCs # 0.0 /100WBC /100W BC Sodium 134 mmol/L L mmol /L (136-145) Potassium 4.7 mmol/L mmol/L (3.5-5.1) Chloride 98 mmol/L mmol/L (98-107) Carbon Dioxide 28 mmol/L mmol/L (22-29) Anion Gap 12.7 (5-19) BUN 21 mg/dL mg/dL (8-23) Creatinine 1.1 mg/dL mg/dL (0.7-1.2) GFR Calculation Not Reportable Glucose 90 mg/dL mg/dL (65-115) Calculated Osmolal ity 281 mOsm/kg L mOs m/kg (285-295) Calcium 9.3 mg/dL mg/dL (8.5-10.5) Magnesium 2.4 mg/dL H mg/dL (1.7-2.3) Total Bilirubin 0.3 mg/dL mg/dL (0.15-1.2) AST 16 U/L U/L (0-40) ALT 13 U/L U/L (0-41) Alkaline Phosphata se 148 IU/L H IU/L (40-130) Total Protein 6.3 g/dL L g/dL (6.6-8.7) Albumin 3.7 g/dL g/dL (3.5-5.2) Globulin 2.6 g/dL g/dL (1.3-4.6) Urine Color Red (Yellow) Urine Appearance Cloudy (CLEAR) Urine pH 7 (5-7) Ur Specific Gravit y 1.010 (1.005-1.030) Urine Protein 2+ H (Negative) Urine Glucose (UA) Norm (Normal) Urine Ketones 1+ H (Negative) Urine Blood 3+ H (Negative) Urine Nitrate Negative (Negative) Urine Bilirubin Neg (Negative) Urine Urobilinogen Norm mg/dL mg/dL (Negative) Ur Leukocyte Debora ase 2+ H (Negative) Urine RBC Too numerous to c nt /hpf H /hpf (0-2) Urine WBC 25-40 /hpf H /hpf (0-5) Ur Squamous Epith Cells 5-10 /hpf H /hpf (0-5) Amorphous Sediment 1+ /hpf /hpf Urine Bacteria 1+ /hpf H /hpf (NONE) Urine Mucus Trace /hpf /hpf Discharge Plan Discharge Patient Disposition: Home Clinical Impression: Hematuria Qualifiers: Hematuria type: idiopathic Condition: Stable Prescriptions: New Cipro 500 mg tablet 500 mg PO Q12H Qty: 14 RF: 0 No Action ascorbate calcium (vitamin C) 500 mg tablet 1,000 mg PO BID@18 RF: 0 albuterol sulfate 2.5 mg /3 mL (0.083 %) solution for nebulization 2.5 mg inhalation Q6H PRN (Reason: Shortness Of Breath) RF: 0 furosemide 40 mg tablet 40 mg PO BID RF: 0 amitriptyline 10 mg tablet 10 mg PO BEDTIME RF: 0 lisinopril 2.5 mg tablet 2.5 mg PO DAILY RF: 0 vitamin E 200 unit capsule 200 unit PO DAILY RF: 0 cilostazol 50 mg tablet 50 mg PO BID@ Qty: 60 RF: 6 ropinirole 3 mg Tablet 3 mg PO DAILY@19 RF: 0 mirtazapine 30 mg Tablet 30 mg PO DAILY@18 RF: 0 ferrous sulfate [iron] 325 mg (65 mg iron) Tablet 325 mg PO DAILY@06 RF: 0 thiamine mononitrate (vit B1) [Vitamin B-1 (mononitrate)] 100 mg tablet 100 mg PO DAILY@06 RF: 0 fluticasone propion-salmeterol [Advair Diskus] 250-50 mcg/dose blister with device 1 puff inhalation BID@0600,1800 RF: 0 potassium chloride 10 mEq tablet,ER particles/crystals 10 meq PO BID RF: 0 isosorbide mononitrate 20 mg tablet 20 mg PO BID@ RF: 0 pravastatin [Pravachol] 40 mg tablet 40 mg PO DAILY@18 RF: 0 tamsulosin [Flomax] 0.4 mg capsule 0.4 mg PO DAILY@06 RF: 0 fluticasone propionate [Flonase Allergy Relief] 50 mcg/actuation spray,suspension 1 spray INTRANASAL BID PRN (Reason: Allergy Symptoms) RF: 0 Spiriva Respimat 2.5 mcg/actuation mist 1 puff INHALATION BID@0600,1800 RF: 0 Eliquis 5 mg tablet 5 mg PO BID@ RF: 0 Hold Instructions: Resume on 04/27/20. albuterol sulfate 90 mcg/actuation HFA aerosol inhaler 2 inh INHALATION BID PRN (Reason: shortness of breath or wheezing) RF: 0 methenamine hippurate 1 gram Tablet 1 g PO BID@ RF: 0 buspirone 15 mg Tablet 15 mg PO BID@ RF: 0 folic acid 1 mg Tablet 1 mg PO DAILY Qty: 30 RF: 0 metoprolol tartrate 50 mg tablet 50 mg PO BID RF: 0 bumetanide 1 mg tablet 1 mg PO DAILY RF: 0 Diltia XT 180 mg Capsule,Ext.Rel 24h Degradable 180 mg PO DAILY RF: 0 lactulose 10 gram/15 mL solution 10 g PO TID PRN (Reason: Constipation) RF: 0 Medrol (Syed) 4 mg tablets,dose pack See Rx Instructions .ROUTE .COMPLEX Qty: 21 RF: 0 Discharge Orders: Discharge ED (Routine); Ordered 03/11/21 Ordered By: Osorio Ryan Referrals: Randolph Carlson MD [Primary Care Provider] - Patient Instructions: Hematuria (ED) Activity Restrictions/Additional Instructions: Follow-up with your primary care provider in 3 to 5 days. Continue take your medications as prescribed. Return to the emergency department with any new or worsening symptoms Coding Level of Care Code ED Associate Professor for Juan Delarosa Exam Comprehensive
[2021-03-11 19:28] VITALS: BP 124/82; PULSE 78; RESP 15; TEMP 37; O2SAT 95
[2021-03-11 19:45] LABS: Basophils # 0.1 10^3/uL (0.0-0.1); Basophils % 0.7 %; Eosinophils # 0.3 10^3/uL (0.0-0.8); Hematocrit 43.8 % (42.0-52.0); Hemoglobin 14.3 g/dL (11.7-16.6); Lymphocytes # 1.4 10^3/uL (0.8-4.8); Lymphocytes % 16.6 %; Mean Corpuscular HGB Conc 32.6 g/dL (30.0-36.0); Mean Corpuscular Hemoglobin 30.6 pg (28.0-34.0); Mean Corpuscular Volume 93.8 fl (80-94); Mean Platelet Volume 9.7 fL (7.4-10.4); Monocytes # 0.8 10^3/uL (0.2-0.9); Monocytes % 9.8 %; Neutrophils # 5.72 10^3/uL (1.8-7.7); Neutrophils % 69.7 %; Nucleated Red Blood Cells % 0 %; Platelet Count 225 10^3/cmm (130-400); Red Blood Count 4.67 10^6/uL (4.1-5.3); White Blood Count 8.2 10^3/uL (4.0-10.0)
[2021-03-11 19:49] LABS: Glucose Urine UA Norm (Normal); Ketones Urine 1+ (Negative); Protein Urine 2+ (Negative); Urine Appearance Cloudy (CLEAR); Urine Color Red (Yellow); pH Urine 7 (5-7)
[2021-03-11 19:50] LABS: Add Urine Microscopic? YES; Bilirubin Urine Neg (Negative); Blood Urine 3+ (Negative); Leukocyte Esterase Urine 2+ (Negative); Nitrate Urine Negative (Negative); Urobilinogen Urine Norm (Negative)
[2021-03-11 20:05] LABS: Bacteria Urine 1+ /hpf; RBC Urine TOO NUMEROUS TO CNT /hpf (0-2); WBC Urine 25-40 /hpf (0-5)
[2021-03-11 20:06] LABS: Add Urine Culture? Yes; Amorphous Sediment Urine 1+ /hpf; Mucus Urine TRACE /hpf
[2021-03-11 20:12] LABS: Alanine Aminotransferase 13 U/L (0-41); Albumin Level 3.7 g/dL (3.5-5.2); Alkaline Phosphatase 148 IU/L (40-130); Anion Gap 12.7 (5-19); Aspartate Amino Transferase 16 U/L (0-40); Blood Urea Nitrogen 21 mg/dL (8-23); Calcium 9.3 mg/dL (8.5-10.5); Carbon Dioxide 28 mmol/L (22-29); Chloride 98 mmol/L (98-107); Globulin 2.6 g/dL (1.3-4.6); Glucose 90 mg/dL (65-115); Magnesium 2.4 mg/dL (1.7-2.3); Osmolality Calculated 281 mOsm/kg (285-295); Potassium 4.7 mmol/L (3.5-5.1); Sodium 134 mmol/L (136-145); Total Bilirubin 0.3 mg/dL (0.15-1.2); Total Protein 6.3 g/dL (6.6-8.7)
[2021-03-11] MEDS: ciprofloxacin 500 mg Tablet PO (20:21)
[2021-03-11 21:09] VITALS: BP 124/82; PULSE 78; RESP 15; TEMP 37; O2SAT 95
== END 2021-03-11 21:10 | disposition home or self-care (01) ==
LOC: ER 20:26
PROVIDERS: Emergency Provider Family Medicine; PCP Family Medicine
DX: N02.9 Recurrent and persistent hematuria with unspecified morphologic changes (principal); Z79.01 Long term (current) use of anticoagulants; Z85.51 Personal history of malignant neoplasm of bladder; I11.0 Hypertensive heart disease with heart failure; I50.9 Heart failure, unspecified; J44.9 Chronic obstructive pulmonary disease, unspecified; Z85.46 Personal history of malignant neoplasm of prostate; E78.5 Hyperlipidemia, unspecified; Z87.891 Personal history of nicotine dependence
CPT/HCPCS: 71045; 74177; 80053; 81001; 83735; 85025; 87077; 87086; 87186; 99283; Q9967

== ENCOUNTER 2021-03-29 10:30 | Observation (INO) | payer MEDICARE, MEDICAID, SELFPAY ==
[2021-03-29] VITALS (12 sets, daily range): BP systolic 145–183; BP diastolic 69–86; PULSE 82–102; RESP 18–22; TEMP 36.4–36.8; O2SAT 90–97; BMI 29.7; BMI 29.5
--- NOTE | 2021-03-29 10:46 | XRR_ITS ---
PROCEDURE INFORMATION: Exam: XR Bilateral Hips Exam date and time: 03/29/2021 10:46 AM Age: 76 years old Clinical indication: Pain and injury or trauma; Fall; Blunt trauma (contusions or hematomas); Hip pain; Injury date: 03/27/21, 03/29/21; Injury details: Fell on Monday and Monday. Pain in left leg and bilateral hips. ; Additional info: Pain after fall TECHNIQUE: Imaging protocol: XR bilateral hips. Views: 2 views of hips with pelvis when performed. COMPARISON: CT abdomen pelvis w con* [id number] 03/11/2021 6:50 PM FINDINGS: Bones/joints: Nondisplaced left pubic bone fractures involving the superior and inferior pubic rami. No proximal femur fracture. No dislocation. No widening of the pubic symphysis. Soft tissues: Unremarkable. XR/XR hip BI m 5V wo/w pel* [id number] IMPRESSION: Left pubic bone fracture. Radiation Dose CTDIVOL = (mGy): DLP = (mGy-cm)
--- NOTE | 2021-03-29 11:09 | ED_ITS ---
HPI - Fall General: Chief Complaint: Fall Stated Complaint: FALL/ L LEG PAIN/ BILATERAL HIP PAIN Time Seen by Provider: 03/29/21 10:34 History of Present Illness: HPI Narrative: 76-year-old male presents emergency room from home. He fell at home he states twice over the weekend 2 days ago then again today he fell when he tried to use a chair that had wheels he reached back for this and and it basically shot out from underneath him he landed on his buttocks he denies striking his head there was no loss of consciousness. MD complaint: fall Onset (ago): day(s) Fall from: standing Fall witnessed: no Place fall occurred: home Loss of consciousness: None Prolonged down time: no Symptoms prior to fall: none Context: tripped/slipped Location of injury: pelvis Severity: moderate Quality: sharp Associated symptoms-after fall: Denies abdominal pain, chest pain, confusion, d ifficulty walking, headache(s), hematuria, lightheadedness, neck pain, numbness, short of breath, vertigo or weakness Review of Systems Const: Denies: fever(s), chills, body aches, change in appetite, fatigue or malaise ENMT: Denies: throat pain, ear or mastoid pain, nasal discharge or nasal congestion Card: Denies: chest pain or lightheadedness Resp: Denies: dyspnea, productive cough or non-productive cough GI: Denies: abdominal pain : Denies: hematuria Musc: Denies: neck pain Skin/Breast: Denies: rash or pruritus Neuro: Denies: headache(s), difficulty walking, vertigo or confusion PFSH ED PFSH: Medical History Anxiety and depression Atrial fibrillation Atrial fibrillation Atrial fibrillation with RVR Bladder cancer CHF exacerbation Chronic anticoagulation COPD (chronic obstructive pulmonary disease) COPD (chronic obstructive pulmonary disease) Cystitis cystica Genital lesion, male History of prostate cancer Hyperlipidemia Hypertension Iron deficiency anemia Left atrial enlargement 4.9 cm width Mitral regurgitation Obstructive sleep apnea Peripheral vascular disease of extremity Renal calculi Surgical History H/O esophagogastroduodenoscopy H/O eye surgery H/O eye surgery detached retina left eye History of colonoscopy (~2004) History of laparotomy History of lithotripsy History of ureter stent Family History Mother , at age 94 Hypertension Heart disease Father , at age 72 Renal disease Heart disease Brother Heart disease Other CAD (coronary artery disease) Cancer Denies family history of Anesthesia complication Bleeding disorder Social History Quit status (tobacco): has quit using tobacco Year quit tobacco: 2019PD x 50 Years Second hand smoke exposure: Yes Smoking risk assessment/counseling performed?: No Alcohol intake: current Alcohol intake frequency: 3 or more drinks per day Alcohol type: hard liquor Desire information about alcohol rehabilitation?: No Counseling given: Yes Counseling given: No Adopted: No Caregiver/support person: No Lives independently: Yes Household members: none Marital status: Single Current occupational status: retired History of recent travel: No Current gender identity: Male Physical Exam Const: COMMON NORMALS: average body habitus, patient oriented x3 and alert GENERAL APPEARANCE: cooperative, comfortable, well kempt and well developed NUTRITIONAL APPEARANCE: obese ORIENTATION/CONSCIOUSNESS: Yes awake, Yes oriented to person and Yes oriented to place HENMT: COMMON NORMALS: normocephalic, atraumatic, EAC's normal, TM's normal bilaterally, Normal external nose present, moist oral mucous membranes and oropharynx normal HEAD & SCALP: normocephalic and atraumatic NOSE: Normal external nose present EXTERNAL AUDITORY CANAL: EAC's normal TYMPANIC MEMBRANE: TM's normal bilaterally MOUTH: Normal oral and palatal mucosa present, lip normal and tongue normal THROAT: posterior oropharynx normal and tonsils normal Neck/C-Spine: COMMON NORMALS: full ROM, no lymphadenopathy, supple, no meningeal signs and Thyroid normal THYROID: Thyroid normal and asymmetrical Resp: COMMON NORMALS: normal respiratory effort, No retractions, No use of accessory muscles and clear to auscultation bilaterally AUSCULTATION: clear to auscultation bilaterally Cardio: COMMON NORMALS: regular rate and regular rhythm RATE: regular rate RHYTHM: regular rhythm HEART SOUNDS: no murmurs GI: COMMON NORMALS: Normal to inspection, nondistended, normoactive bowel sounds present, Soft to palpation and No hepatosplenomegaly present PALPATION: Yes Soft to palpation and Yes No hepatosplenomegaly present : COMMON NORMALS: Yes no CVA tenderness BLADDER/KIDNEY EXAM: Yes no CVA tenderness Back/Pelvis: COMMON NORMALS: no CVA tenderness LUMBAR SPINE/LOWER BACK: Yes normal to inspection Extremity: COMMON NORMALS: no clubbing, cyanosis or edema, no calf tenderness and no pedal edema Neuro: COMMON NORMALS: patient oriented x3 SENSORIUM/ORIENTATION: Yes alert, Yes oriented to person and Yes oriented to place MENINGEAL SIGNS: Yes no meningeal signs Psych: APPEARANCE: Yes well kempt Skin: COMMON NORMALS: no rashes or lesions noted and turgor normal GENERAL SKIN EXAM: no rashes or lesions noted and turgor normal Course Vital Signs: Vital signs: Vital Signs Temperature 97.6 F 03/29/21 10:34 Pulse Rate 85 03/29/21 14:15 Respiratory Rate 20 H 03/29/21 14:15 Blood Pressure 183/78 03/29/21 14:15 Pulse Oximetry 94 03/29/21 14:15 MDM - Fall MDM Narrative: Medical decision making narrative: Plain films there appeared to be a pubic rami fracture CT was done because they thought that was disproportionate to the degree of pain he was showing CT shows multiple fractures including L5 transverse spinous process fractures sacral ala fractures right acetabular fracture and inferior and superior pubic rami fractures. In addition to that he has pelvic hematomas. He is on the Eliquis for atrial fibrillation I think this can safely be stopped for a time. Initially I recommended the patient he be admitted because we had tried a physical therapy trial and he was not able to stand we done a trial that showed patient that he is not can be able to function at home. Despite this he initially demanded to go home I was unable to convince him otherwise we had actually gotten ready to let him sign out AMA after giving him warnings about concerns of his unsteadiness and being on the blood thinners. When he went to sit at the bedside he had so much difficulty he quickly changed his mind and wish to stay. He understands that the plan will be for him to be placed in rehab for a time until he is able to stand and get around on his own adequately to go home. I did discuss with Dr. Cruz he is willing to follow along with the patient he does not think that the patient will need any surgical procedures but might benefit from a percutaneous pinning of the acetabulum to help with pain control we will follow along with the hospitalist discussed the hospitalist orders are written. Lab Data: Labs: Lab Results 03/29/21 03/29/21 10:58 10:58 WBC 13.9 10^3/uL H 10 ^3/uL (4.0-10.0) RBC 4.28 10^6/uL 10^6 /uL (4.1-5.3) Hgb 12.9 g/dL g/dL (11.7-16.6) Hct 39.7 % L % (42.0-52.0) MCV 92.8 fl fl (80-94) MCH 30.1 pg pg (28.0-34.0) MCHC 32.5 g/dL g/dL (30.0-36.0) RDW 15.9 % H % (12.1-15.1) Plt Count 288 10^3/cmm 10^3 /cmm (130-400) MPV 9.7 fL fL (7.4-10.4) Neut % (Auto) 85.8 % % Lymph % (Auto) 6.8 % % [place] % (Auto) 5.5 % % Eos % (Auto) 0.9 % % Baso % (Auto) 0.3 % % Neut # (Auto) 11.94 10^3/uL H 1 0^3/uL (1.8-7.7) Lymph # (Auto) 0.9 10^3/uL 10^3/ uL (0.8-4.8) [place] # (Auto) 0.8 10^3/uL 10^3/ uL (0.2-0.9) Eos # (Auto) 0.1 10^3/uL 10^3/ uL (0.0-0.8) Baso # (Auto) 0.0 10^3/uL 10^3/ uL (0.0-0.1) Nucleated RBC % (a uto) 0 % % Nucleated RBCs # 0.0 /100WBC /100W BC Sodium 134 mmol/L L mmol /L (136-145) Potassium 4.4 mmol/L mmol/L (3.5-5.1) Chloride 95 mmol/L L mmol/ L (98-107) Carbon Dioxide 27 mmol/L mmol/L (22-29) Anion Gap 16.4 (5-19) BUN 32 mg/dL H mg/dL (8-23) Creatinine 1.3 mg/dL H mg/dL (0.7-1.2) GFR Calculation Not Reportable Glucose 86 mg/dL mg/dL (65-115) Calculated Osmolal ity 284 mOsm/kg L mOs m/kg (285-295) Calcium 9.8 mg/dL mg/dL (8.5-10.5) Total Bilirubin 0.6 mg/dL mg/dL (0.15-1.2) AST 22 U/L U/L (0-40) ALT 14 U/L U/L (0-41) Alkaline Phosphata se 174 IU/L H IU/L (40-130) Total Protein 7.0 g/dL g/dL (6.6-8.7) Albumin 3.5 g/dL g/dL (3.5-5.2) Globulin 3.5 g/dL g/dL (1.3-4.6) Discharge Plan Discharge Patient Disposition: Left Against Medical Advice Clinical Impression: Fracture of pubic ramus Condition: Stable Prescriptions: No Action ascorbate calcium (vitamin C) 500 mg tablet 1,000 mg PO BID@,18 RF: 0 albuterol sulfate 2.5 mg /3 mL (0.083 %) solution for nebulization 2.5 mg inhalation Q6H PRN (Reason: Shortness Of Breath) RF: 0 furosemide 40 mg tablet 40 mg PO BID RF: 0 amitriptyline 10 mg tablet 10 mg PO BEDTIME RF: 0 lisinopril 2.5 mg tablet 2.5 mg PO DAILY RF: 0 ropinirole 3 mg Tablet 3 mg PO DAILY@19 RF: 0 mirtazapine 30 mg Tablet 30 mg PO DAILY@18 RF: 0 ferrous sulfate [iron] 325 mg (65 mg iron) Tablet 325 mg PO DAILY RF: 0 thiamine mononitrate (vit B1) [Vitamin B-1 (mononitrate)] 100 mg tablet 100 mg PO DAILY@06 RF: 0 fluticasone propion-salmeterol [Advair Diskus] 250-50 mcg/dose blister with device 1 puff inhalation BID@0600,1800 RF: 0 potassium chloride 10 mEq tablet,ER particles/crystals 10 meq PO BID RF: 0 isosorbide mononitrate 20 mg tablet 20 mg PO BID RF: 0 tamsulosin [Flomax] 0.4 mg capsule 0.4 mg PO DAILY@06 RF: 0 fluticasone propionate [Flonase Allergy Relief] 50 mcg/actuation spray,suspension 1 spray INTRANASAL BID PRN (Reason: Allergy Symptoms) RF: 0 Spiriva Respimat 2.5 mcg/actuation mist 1 puff INHALATION BID@0600,1800 RF: 0 Eliquis 5 mg tablet 5 mg PO BID@18 RF: 0 Hold Instructions: Resume on 04/27/20. albuterol sulfate 90 mcg/actuation HFA aerosol inhaler 2 inh INHALATION BID PRN (Reason: shortness of breath or wheezing) RF: 0 methenamine hippurate 1 gram Tablet 1 g PO BID@ RF: 0 buspirone 15 mg Tablet 15 mg PO BID@ RF: 0 folic acid 1 mg Tablet 1 mg PO DAILY Qty: 30 RF: 0 metoprolol tartrate 50 mg tablet 50 mg PO BID RF: 0 bumetanide 1 mg tablet 1 mg PO DAILY RF: 0 DILT-XR 240 mg capsule,ext.rel 24h degradable 240 mg PO DAILY RF: 0 pravastatin 40 mg tablet 40 mg PO QPM RF: 0 cilostazol 50 mg tablet 50 mg PO BID@18 RF: 0 lactulose 10 gram/15 mL solution 15 ml PO TID PRN (Reason: Constipation) RF: 0 sulfamethoxazole-trimethoprim 800-160 mg tablet 1 tab PO BID RF: 0 triamcinolone acetonide 0.1 % cream 1 applic TOPICAL BID PRN (Reason: unknown) RF: 0 ibuprofen 200 mg Tablet 400 mg PO Q4H PRN (Reason: Pain) RF: 0 naproxen 500 mg tablet 500 mg PO BID PRN (Reason: Pain) RF: 0 Referrals: Randolph Carlson MD [Primary Care Provider] - Discharge Diet: Usual diet Discharge Activity: Limit activity as instructed Activity Restrictions/Additional Instructions: We have recommended that you be admitted for pain control and rehabilitation due to the pelvic fracture. There is extreme risk for you going home due to you being on a anticoagulant. If you were to fall again and strike your head this may kill you. If you change your mind and are willing to be admitted for rehab return at any time. Coding Level of Care Code ED Mounter Sousaphones for Juan Delarosa
[2021-03-29 11:11] LABS: Basophils % 0.3 %; Eosinophils # 0.1 10^3/uL (0.0-0.8); Eosinophils % 0.9 %; Hematocrit 39.7 % (42.0-52.0); Hemoglobin 12.9 g/dL (11.7-16.6); Lymphocytes # 0.9 10^3/uL (0.8-4.8); Lymphocytes % 6.8 %; Mean Corpuscular HGB Conc 32.5 g/dL (30.0-36.0); Mean Corpuscular Hemoglobin 30.1 pg (28.0-34.0); Mean Corpuscular Volume 92.8 fl (80-94); Mean Platelet Volume 9.7 fL (7.4-10.4); Monocytes # 0.8 10^3/uL (0.2-0.9); Monocytes % 5.5 %; Neutrophils # 11.94 10^3/uL (1.8-7.7); Neutrophils % 85.8 %; Nucleated Red Blood Cells % 0 %; Platelet Count 288 10^3/cmm (130-400); Red Blood Count 4.28 10^6/uL (4.1-5.3); Red Cell Distribution Width 15.9 % (12.1-15.1); White Blood Count 13.9 10^3/uL (4.0-10.0)
[2021-03-29] MEDS: morphine 4 mg/mL SDV 1 mL IVP ×2 (11:29→15:37)
[2021-03-29 11:43] LABS: Alanine Aminotransferase 14 U/L (0-41); Albumin Level 3.5 g/dL (3.5-5.2); Alkaline Phosphatase 174 IU/L (40-130); Anion Gap 16.4 (5-19); Aspartate Amino Transferase 22 U/L (0-40); Blood Urea Nitrogen 32 mg/dL (8-23); Calcium 9.8 mg/dL (8.5-10.5); Carbon Dioxide 27 mmol/L (22-29); Chloride 95 mmol/L (98-107); Creatinine Clr Calc Pharmacy 66.9103; Globulin 3.5 g/dL (1.3-4.6); Glucose 86 mg/dL (65-115); Osmolality Calculated 284 mOsm/kg (285-295); Potassium 4.4 mmol/L (3.5-5.1); Sodium 134 mmol/L (136-145); Total Bilirubin 0.6 mg/dL (0.15-1.2)
--- NOTE | 2021-03-29 12:40 | CT_ITS ---
WS: [id number] CT pelvis TECHNIQUE: Noncontrast CT of the pelvis with coronal and sagittal reformatted images. CLINICAL INFORMATION: pain weight bearing - occult fracture COMPARISON: Hip radiograph March 29, 2021 DLP: 826.[address] scans at [facility] use at least one of these dose optimization techniques: automated e xposure control; mA and/or kV adjustment per patient size (includes targeted exams where dose is matc hed to clinical indication); or iterative reconstruction. FINDINGS: Comminuted fractures involving the left inferior and superior pubic rami extending to the pubic symph ysis at the superior pubic ramus. Tiny comminuted fracture Bilateral nondisplaced sacral fractures involving both sacral ala. Additional nondisplaced bilateral L5 transverse process fractures. Additional nondisplaced buckle fractures involving the right inferio r pubic ramus. Slightly comminuted fracture involving the anterior acetabulum. Left acetabulum appears normal. Both femoral heads and femoral necks appear normal. Urine distended bladder. Pelvic hematoma with edema at the pubic symphysis. Fluid and edema within the left hemipelvis. Urine distended bladder. Recommend correlation for bladder injury. Disc space narrowing L3-L4 L4-L5 and L5-S1. CT/CT pelvis con [id number] IMPRESSION: 1. Comminuted left greater than right bilateral superior and inferior pubic ra mi fractures extending to the pubic symphysis with associated hematoma in the a nterior pelvis and left kidney pelvis. 2. Comminuted fracture involving the right anterior acetabulum. 3. Bilateral sacral fractures extending from the sacral inlet through the sacr al ala bilaterally. 4. Bilateral L5 transverse process fractures left greater than right. 5. Urine distended bladder. Recommend correlation for bladder injury. 6. Bilateral femoral heads and neck appear normal. Notified Rigoberto Doss DO at 03/29/2021 1:47 PM.
--- NOTE | 2021-03-29 14:44 | PC.PHAR ---
pt states he has a nurse from [place] [facility] at home that sets up his medications-medication entered are meds that are on the pts med list from [facility] and ext med history-notes are made in the pharmacy comments-
--- NOTE | 2021-03-29 16:24 | PM.HP ---
Providers/Chief Complaint Admitting Physician: Alonso Cotto MD Primary Care Provider: Randolph Carlson MD Chief Complaint: FALL/ L LEG PAIN/ BILATERAL HIP PAIN History of Present Illness Damien Stringer is a 76 year old male atrial fibrillation on Eliquis, COPD, GWYN, diastolic CHF, anxiety depression, history of alcohol abuse, severe mitral regurg, history of bladder cancer, history of prostate cancer, history of multiple UTIs, who presents to [facility] due to fall, and complains of lower pelvic pain, sacral pain. Patient tells me that about a week ago, he was trying to sit down, in his chair slipped from out under him, and he fell to the floor, he fell on his sacrum, no head trauma, but really has sacral pain and bruising. He continued to have sacral pain, and then on Monday again when he was trying to sit down the chair slipped out from under him, and he fell to the floor. Denies any head trauma, denies any loss of consciousness, denies any preceding lightheadedness, dizziness, shortness of breath or strokelike symptoms. His last alcohol drink was last , which was a sixpack of beers, denies any tremors, denies any auditory visual or tactile hallucinations, denies chest palpitations, shortness of breath. He tells me that he was on the floor for only short period of time, but immediately had sacral pain, pain down his thighs, pain in his lower back. He tells me throughout the week and the pain only worsened, the swelling and the tenderness continue to worsen so he came to the emergency room for evaluation. Review of Systems Const: Denies: fever(s), chills, fatigue or malaise Eyes: Denies: change in vision or blurry vision ENMT: Denies: nasal congestion Card: Reports: edema; Denies: chest pain, palpitations, lightheadedness, syncope, pre-syncope or dyspnea on exertion Resp: Denies: dyspnea, productive cough, non-productive cough or wheezing GI: Denies: abdominal pain, nausea, vomiting, hematemesis, diarrhea, constipation, hematochezia or melena : Reports: flank pain and dysuria; Denies: difficulty urinating or urinary frequency Musc: Reports: back pain, joint pain and muscle cramps; Denies: neck pain Skin/Breast: Denies: rash Neuro: Denies: headache(s), dizziness or vertigo Psych: Denies: anxiety or depression Endo: Denies: polyuria or polydipsia Medications/Allergies Home Medications Medication Instructions Recorded Confirmed Last Taken Type Eliquis 5 mg PO BID@06,18 07/20/19 03/29/21 02/20/21 History Spiriva Respimat 1 puff INHALATION BID@0600,1800 07/20/19 03/29/21 02/20/21 History fluticasone propionate [Flonase 1 spray INTRANASAL BID PRN 07/20/19 03/29/21 08/14/20 History Allergy Relief] isosorbide mononitrate 20 mg PO BID 07/20/19 03/29/21 02/20/21 History tamsulosin [Flomax] 0.4 mg PO DAILY@06 07/20/19 03/29/21 02/20/21 History ferrous sulfate [iron] 325 mg PO DAILY 10/27/19 03/29/21 02/20/21 History mirtazapine 30 mg PO DAILY@18 10/27/19 03/29/21 02/19/21 History ropinirole 3 mg PO DAILY@10/27/19 03/29/21 02/19/21 History albuterol sulfate 2.5 mg INHALATION Q6H PRN 05/21/20 03/29/21 03/29/21 History thiamine mononitrate (vit B1) 100 mg PO DAILY@06 06/02/20 03/29/21 02/20/21 History [Vitamin B-1 (mononitrate)] albuterol sulfate 2 inh INHALATION BID PRN 06/24/20 03/29/21 08/14/20 History fluticasone propion-salmeterol 1 puff INHALATION BID@0600,1800 08/14/20 03/29/21 02/20/21 History [Advair Diskus] buspirone 15 mg PO BID@06,18 09/10/20 03/29/21 02/20/21 History methenamine hippurate 1 g PO BID@06,18 09/10/20 03/29/21 02/20/21 History folic acid 1 mg PO DAILY #30 tab 09/11/20 03/29/21 02/20/21 Rx ascorbate calcium (vitamin C) 500 1,000 mg PO BID@18 tab 12/09/20 03/29/21 02/20/21 History mg tablet amitriptyline 10 mg tablet 10 mg PO BEDTIME tab 01/21/21 03/29/21 02/19/21 History furosemide 40 mg tablet 40 mg PO BID 01/21/21 03/29/21 02/20/21 History lisinopril 2.5 mg tablet 2.5 mg PO DAILY 01/21/21 03/29/21 02/20/21 History potassium chloride 10 mEq 10 meq PO BID tab 01/21/21 03/29/21 02/20/21 History tablet,extended release(part/cryst) bumetanide 1 mg PO DAILY 02/20/21 03/29/21 02/20/21 History metoprolol tartrate 50 mg PO BID 02/20/21 03/29/21 02/20/21 History cilostazol 50 mg PO BID@03/29/21 03/29/21 Unknown History diltiazem HCl [DILT-XR] 240 mg PO DAILY 03/29/21 03/29/21 Unknown History ibuprofen 400 mg PO Q4H PRN 03/29/21 03/29/21 Unknown History lactulose 15 ml PO TID PRN 03/29/21 03/29/21 Unknown History naproxen 500 mg PO BID PRN 03/29/21 03/29/21 Unknown History pravastatin 40 mg PO QPM 03/29/21 03/29/21 Unknown History sulfamethoxazole-trimethoprim 1 tab PO BID 03/29/21 03/29/21 Unknown History triamcinolone acetonide 1 applic TOPICAL BID PRN 03/29/21 03/29/21 Unknown History Allergies Allergy/AdvReac Type Severity Reaction Status Date / Time No Known Allergies Allergy Verified 03/29/21 14:04 PFSH Acute PFSH: Medical History (Updated 03/29/21 @ 16:31 by Alonso Cotto MD) Anxiety and depression Atrial fibrillation Atrial fibrillation Atrial fibrillation with RVR Bladder cancer CHF exacerbation Chronic anticoagulation COPD (chronic obstructive pulmonary disease) COPD (chronic obstructive pulmonary disease) Cystitis cystica Genital lesion, male History of prostate cancer Hyperlipidemia Hypertension Iron deficiency anemia Left atrial enlargement 4.9 cm width Mitral regurgitation Obstructive sleep apnea Peripheral vascular disease of extremity Renal calculi Surgical History H/O esophagogastroduodenoscopy H/O eye surgery H/O eye surgery detached retina left eye History of colonoscopy (~2004) History of laparotomy History of lithotripsy History of ureter stent Family History Mother , at age 94 Hypertension Heart disease Father , at age 72 Renal disease Heart disease Brother Heart disease Other CAD (coronary artery disease) Cancer Denies family history of Anesthesia complication Bleeding disorder Social History Quit status (tobacco): has quit using tobacco Year quit tobacco: 2019 - 1PPD x 50 Years Second hand smoke exposure: Yes Smoking risk assessment/counseling performed?: No Alcohol intake: current Alcohol intake frequency: 3 or more drinks per day Alcohol type: hard liquor Desire information about alcohol rehabilitation?: No Counseling given: Yes Counseling given: No Adopted: No Caregiver/support person: No Lives independently: Yes Household members: none Marital status: Single Current occupational status: retired History of recent travel: No Current gender identity: Male Vitals/I&O/Wt Last Vital Signs Temp 97.6 F 03/29/21 10:34 Pulse 97 03/29/21 16:08 Resp 20 H 03/29/21 16:08 BP 146/70 03/29/21 16:08 Pulse Ox 94 03/29/21 16:08 Weight last 48 hrs Weight 109.86 kg Weight 109.826 kg Weight 110.677 kg Physical Exam Const: COMMON NORMALS: no acute distress and patient oriented x3 GENERAL APPEARANCE: cooperative and comfortable HENMT: COMMON NORMALS: normocephalic HEAD & SCALP: normocephalic Neck/C-Spine: COMMON NORMALS: full ROM and no lymphadenopathy THYROID: Thyroid normal Lymph: LYMPHATIC: no lymphadenopathy noted Resp: COMMON NORMALS: normal respiratory effort, No retractions, No use of accessory muscles and clear to auscultation bilaterally AUSCULTATION: clear to auscultation bilaterally Cardio: COMMON NORMALS: regular rate, regular rhythm, S1 normal heart sound present, S2 normal heart sound present, No gallops present (Cardio), No clicks present (Cardio) and No murmurs present (Cardio) RATE: regular rate RHYTHM: regular rhythm HEART SOUNDS: S1 normal heart sound present and S2 normal heart sound present GI: COMMON NORMALS: Normal to inspection, nondistended, normoactive bowel sounds present and Soft to palpation PALPATION: Yes No hepatosplenomegaly present Extremity: COMMON NORMALS: full ROM Neuro: COMMON NORMALS: patient oriented x3, CN's II-XII intact bilaterally, moves all extremities and no focal motor deficits Psych: COMMON NORMALS: mental status grossly normal, Normal thought process present and cooperative THOUGHT PROCESS: Normal thought process present Skin: NARRATIVE SKIN EXAM: -Multiple skin breaks bilateral multiple skin breaks in bilateral extremities -Superficial bruising, tenderness, superficial hematoma erythema, lower sacrum, buttocks, thigh Data : 03/29/21 10:58 03/29/21 10:58 A&P Assessment and plan (1) Fracture of pubic ramus: -Associated with mechanical fall -Possibly patient's alcoholism is playing a role -1. Comminuted left greater than right bilateral superior and inferior pubic rami fractures extending to the pubic symphysis with associated hematoma in the anterior pelvis and left kidney pelvis. 2. Comminuted fracture involving the right anterior acetabulum. 3. Bilateral sacral fractures extending from the sacral inlet through the sacral ala bilaterally. 4. Bilateral L5 transverse process fractures left greater than right. -Dr. Cruz was consulted by ER, recommended medical management, but can consider surgical intervention based on clinical progress Plan: -Admit to general medical floors -Pain control -PT OT -SCDs for DVT prophylaxis -Anticoagulation currently contraindicated given patient's hematomas, fall on Eliquis, risk of bleeding -CODE STATUS patient is okay with CPR, declines intubation Multiple superficial bruising, hematomas, associated with fall in a patient on Eliquis, monitor hemoglobin hold Eliquis Atrial fibrillation, continue Cardizem, metoprolol COPD exacerbation, DuoNeb, prednisone CHF, diastolic, with mitral regurg, does have 1+ pitting edema bilaterally, hold off on Lasix for now given Acute kidney injury, elevated creatinine creatinine 1.3, will order CPK, postobstructive component, UTI UTI, start Rocephin, await urine culture Alcohol abuse, CIWA protocol Distended bladder, trouble urinating, will place Mckeon catheter likely postobstructive Status: Acute (2) Atrial fibrillation: Status: Acute Qualifiers: Atrial fibrillation type: longstanding persistent Qualified Code(s): I48.11 - Longstanding persistent atrial fibrillation (3) Mitral regurgitation: Status: Acute Qualifiers: Cardiac valve disease etiology: nonrheumatic Qualified Code(s): I34.0 - Nonrheumatic mitral (valve) insufficiency (4) COPD exacerbation: Status: Acute (5) COPD (chronic obstructive pulmonary disease): Status: Acute (6) GERD (gastroesophageal reflux disease): Status: Acute (7) Hyperlipidemia: Status: Acute (8) Hypertension: Status: Acute Qualifiers: Hypertension type: essential hypertension Qualified Code(s): I10 - Essential (primary) hypertension Attestations Medical Necessity Statement*: Patient requires hospitalization, outpatient with fracture of pubis, pain control, UTI, EDGAR Coding Level of Care Code Acute Procedures Analyst for [facility] Fwd Diagnoses Fracture of pubic ramus S32.599A Atrial fibrillation I48.11 Atrial fibrillation type: longstanding persistent Mitral regurgitation I34.0 Cardiac valve disease etiology: nonrheumatic COPD exacerbation J44.1 COPD (chronic obstructive pulmonary disease) J44.9 GERD (gastroesophageal reflux disease) K21.9 Hyperlipidemia E78.5 Hypertension I10 Hypertension type: essential hypertension
--- NOTE | 2021-03-29 17:04 | XRR_ITS ---
PROCEDURE INFORMATION: Exam: XR Chest Exam date and time: 03/29/2021 5:04 PM Age: 76 years old Clinical indication: Wheezing TECHNIQUE: Imaging protocol: XR of the chest. Views: 1 view. COMPARISON: CR (CHEST, ) 03/11/2021 6:46 PM FINDINGS: Lungs: Hyperinflation. No acute consolidation. Bilateral interstitial thickening and bibasilar atelectasis or scar. Pleural spaces: No pleural effusion. No pneumothorax. Heart/Mediastinum: No cardiomegaly. Bones/joints: No acute findings. XR/XR chest 1V portable [id number] IMPRESSION: Chronic changes, no acute findings. Radiation Dose CTDIVOL = (mGy): DLP = (mGy-cm)
[2021-03-29] MEDS: famotidine 20 mg Tablet PO (17:28)
[2021-03-29] MEDS: mirtazapine 30 mg Tablet PO (17:28)
[2021-03-29] MEDS: metoprolol tartrate 50 mg Tablet PO (17:28)
[2021-03-29] MEDS: cefTRIAXone 1,000 MG in sodium chloride 0.9% (plus) 50 ML 100 MG IV (17:28)
[2021-03-29 17:41] LABS: INR 1.85 (0.8-1.2)
[2021-03-29] MEDS: ipratropium-albuterol 3 mL Neb INHALATION ×2 (17:50→21:05)
[2021-03-29 18:10] LABS: NT Pro B Type Natriuretic Pept 644 pg/mL (0-450); Procalcitonin 0.31 ng/mL (0-0.5)
[2021-03-29 18:22] LABS: C Reactive Protein 204.7 mg/L (0.0-4.9); Creatine Phosphokinase 225 U/L (39-308)
[2021-03-29] MEDS: ropinirole 2 mg Tablet 3 MG PO (18:23)
[2021-03-29] MEDS: BuSPIRONE 10 mg Tablet 15 MG PO (18:23)
[2021-03-29] MEDS: ondansetron 2 mg/ML SDV 2 mL 4 MG IVP (22:30)
[2021-03-30] VITALS (13 sets, daily range): BP systolic 130–167; BP diastolic 53–78; PULSE 83–105; RESP 17–18; TEMP 36.4–37.1; O2SAT 89–93
[2021-03-30] MEDS: BuSPIRONE 10 mg Tablet 15 MG PO ×2 (05:49→18:30)
[2021-03-30] MEDS: tamsulosin 0.4 mg Capsule PO (05:49)
[2021-03-30 05:50] LABS: Basophils % 0.3 %; Eosinophils # 0.2 10^3/uL (0.0-0.8); Eosinophils % 1.8 %; Hematocrit 37.9 % (42.0-52.0); Hemoglobin 12.2 g/dL (11.7-16.6); Lymphocytes # 1.3 10^3/uL (0.8-4.8); Lymphocytes % 10.4 %; Mean Corpuscular HGB Conc 32.2 g/dL (30.0-36.0); Mean Corpuscular Hemoglobin 30.3 pg (28.0-34.0); Mean Platelet Volume 9.6 fL (7.4-10.4); Monocytes # 0.8 10^3/uL (0.2-0.9); Monocytes % 6.7 %; Neutrophils # 9.65 10^3/uL (1.8-7.7); Neutrophils % 80.1 %; Nucleated Red Blood Cells % 0 %; Platelet Count 287 10^3/cmm (130-400); Red Blood Count 4.03 10^6/uL (4.1-5.3); Red Cell Distribution Width 15.5 % (12.1-15.1); White Blood Count 12.1 10^3/uL (4.0-10.0)
[2021-03-30 06:24] LABS: Alanine Aminotransferase 14 U/L (0-41); Albumin Level 3.2 g/dL (3.5-5.2); Alkaline Phosphatase 156 IU/L (40-130); Anion Gap 15.3 (5-19); Aspartate Amino Transferase 21 U/L (0-40); Blood Urea Nitrogen 25 mg/dL (8-23); Calcium 9.3 mg/dL (8.5-10.5); Carbon Dioxide 26 mmol/L (22-29); Chloride 98 mmol/L (98-107); Glucose 96 mg/dL (65-115); Magnesium 2.1 mg/dL (1.7-2.3); Osmolality Calculated 284 mOsm/kg (285-295); Phosphorus 2.7 mg/dL (2.5-4.5); Potassium 4.3 mmol/L (3.5-5.1); Sodium 135 mmol/L (136-145); Total Bilirubin 0.4 mg/dL (0.15-1.2); Total Protein 6.2 g/dL (6.6-8.7)
[2021-03-30] MEDS: morphine 4 mg/mL SDV 1 mL 2 MG IVP ×2 (08:42→16:15)
--- NOTE | 2021-03-30 08:45 | P.CONIM_ITS ---
Documented by User: KAPIL Garcia 03/30/21 08:59 Providers/Reason For Consult Consulting Physician/Specialty*: Orthopedics Reason for Consult*: Hip and buttock pain Attending Physician: Alonso Cotto MD Primary Care Provider: Randolph Carlson MD History of Present Illness History of Present Illness Damien Stringer is a 76 year old male who attempted to sit into roller chair when the roller chair slid out from underneath him falling from a standing position landing on his buttock region. [place] immediate pain inability to move without severe pain to a sharp stabbing constant in nature. He presented to [facility] where x-rays confirmed a fracture orthopedics was consulted for his injuries. He was admitted and managed by the hospitalist team orthopedics was consulted he was evaluated [facility] bed 263. He compl ained of continued low back and buttock pain denied any leg pain. Any movement makes it much worse he is not found much to make things better. It is sharp constant in nature. Denies any loss of consciousness in the fall denied any neck or shoulder pain denied any arm pain. Review of Systems Const: Denies: fever(s), chills, body aches, change in appetite, fatigue or malaise Eyes: Denies: change in vision, blurry vision or photophobia ENMT: Denies: throat pain, enlarged tonsils, ear or mastoid pain, nasal discharge or nasal congestion Card: Reports: edema; Denies: chest pain, palpitations, lightheadedness, syncope, pre-syncope or dyspnea on exertion Resp: Denies: dyspnea, productive cough, non-productive cough or wheezing GI: Denies: abdominal pain, nausea, vomiting, hematemesis, diarrhea, constipation, hematochezia or melena : Reports: flank pain and dysuria; Denies: difficulty urinating, urinary frequency or hematuria Musc: Reports: back pain, joint pain and muscle cramps; Denies: neck pain or joint warmth Skin/Breast: Denies: rash or pruritus Neuro: Denies: headache(s), difficulty walking, dizziness, vertigo or confusion Psych: Denies: anxiety or depression Endo: Denies: polyuria or polydipsia All/Imm: Denies: acute wheezing Meds/Allergies Home Medications and Allergies Home Medications Medication Instructions Recorded Confirmed Last Taken Type Eliquis 5 mg PO BID@06,18 07/20/19 03/29/21 02/20/21 History Spiriva Respimat 1 puff INHALATION BID@0600,1800 07/20/19 03/29/21 02/20/21 History fluticasone propionate [Flonase 1 spray INTRANASAL BID PRN 07/20/19 03/29/21 08/14/20 History Allergy Relief] isosorbide mononitrate 20 mg PO BID 07/20/19 03/29/21 02/20/21 History tamsulosin [Flomax] 0.4 mg PO DAILY@06 07/20/19 03/29/21 02/20/21 History ferrous sulfate [iron] 325 mg PO DAILY 10/27/19 03/29/21 02/20/21 History mirtazapine 30 mg PO DAILY@10/27/19 03/29/21 02/19/21 History ropinirole 3 mg PO DAILY@10/27/19 03/29/21 02/19/21 History albuterol sulfate 2.5 mg INHALATION Q6H PRN 05/21/20 03/29/21 03/29/21 History thiamine mononitrate (vit B1) 100 mg PO DAILY@06/02/20 03/29/21 02/20/21 History [Vitamin B-1 (mononitrate)] albuterol sulfate 2 inh INHALATION BID PRN 06/24/20 03/29/21 08/14/20 History fluticasone propion-salmeterol 1 puff INHALATION BID@0600,1800 08/14/20 03/29/21 02/20/21 History [Advair Diskus] buspirone 15 mg PO BID@,18 09/10/20 03/29/21 02/20/21 History methenamine hippurate 1 g PO BID@,09/10/20 03/29/21 02/20/21 History folic acid 1 mg PO DAILY #30 tab 09/11/20 03/29/21 02/20/21 Rx ascorbate calcium (vitamin C) 500 1,000 mg PO BID@06,18 tab 12/09/20 03/29/21 02/20/21 History mg tablet amitriptyline 10 mg tablet 10 mg PO BEDTIME tab 01/21/21 03/29/21 02/19/21 History furosemide 40 mg tablet 40 mg PO BID 01/21/21 03/29/21 02/20/21 History lisinopril 2.5 mg tablet 2.5 mg PO DAILY 01/21/21 03/29/21 02/20/21 History potassium chloride 10 mEq 10 meq PO BID tab 01/21/21 03/29/21 02/20/21 History tablet,extended release(part/cryst) bumetanide 1 mg PO DAILY 02/20/21 03/29/21 02/20/21 History metoprolol tartrate 50 mg PO BID 02/20/21 03/29/21 02/20/21 History cilostazol 50 mg PO BID@03/29/21 03/29/21 Unknown History diltiazem HCl [DILT-XR] 240 mg PO DAILY 03/29/21 03/29/21 Unknown History ibuprofen 400 mg PO Q4H PRN 03/29/21 03/29/21 Unknown History lactulose 15 ml PO TID PRN 03/29/21 03/29/21 Unknown History naproxen 500 mg PO BID PRN 03/29/21 03/29/21 Unknown History pravastatin 40 mg PO QPM 03/29/21 03/29/21 Unknown History sulfamethoxazole-trimethoprim 1 tab PO BID 03/29/21 03/29/21 Unknown History triamcinolone acetonide 1 applic TOPICAL BID PRN 03/29/21 03/29/21 Unknown History Allergies Allergy/AdvReac Type Severity Reaction Status Date / Time No Known Allergies Allergy Verified 03/29/21 14:04 Current Medications Current Medications Generic Name Dose Route Start Last Admin Trade Name Freq PRN Reason Stop Dose Admin Albuterol/Ipratropium 3 ml 03/29/21 17:04 03/29/21 17:50 Ipratropium-Albuterol 3 Ml Neb INHALATION 3 ml Q4H PRN Administration SHORTNESS OF BREATH Albuterol/Ipratropium 3 ml 03/29/21 21:00 03/29/21 21:05 Ipratropium-Albuterol 3 Ml Neb INHALATION 3 ml TID.RESPIRATORY NIKHIL Administration Buspirone HCl 15 mg 03/29/21 18:00 03/30/21 05:49 Buspirone 10 Mg Tablet PO 15 mg BID@06,18 NIKHIL Administration Famotidine 20 mg 03/29/21 18:00 03/29/21 17:28 Famotidine 20 Mg Tablet PO 20 mg BID NIKHIL Administration Ceftriaxone Sodium 1,000 mg/ 50 mls @ 100 mls/hr 03/29/21 17:04 03/29/21 19:54 Sodium Chloride IV Infused Q24H NIKHIL Infusion Protocol Metoprolol Tartrate 50 mg 03/29/21 18:00 03/29/21 17:28 Metoprolol Tartrate 50 Mg Tablet PO 50 mg BID NIKHIL Administration Mirtazapine 30 mg 03/29/21 18:00 03/29/21 17:28 Mirtazapine 30 Mg Tablet PO 30 mg DAILY@18 NIKHIL Administration Ondansetron HCl 4 mg 03/29/21 17:04 03/29/21 22:30 Ondansetron 2 Mg/Ml Sdv 2 Ml IVP 4 mg Q6H PRN Administration NAUSEA AND VOMITING Ropinirole HCl 3 mg 03/29/21 19:00 03/29/21 18:23 Ropinirole 2 Mg Tablet PO 3 mg DAILY@19 NIKHIL Administration Fluticasone/Salmeterol 1 puff 03/29/21 18:00 03/29/21 17:51 Fluticasone-Salmeterol 250-50 Diskus INHALATION 1 puff BID@0600,1800 NIKHIL Administration Tamsulosin HCl 0.4 mg 03/30/21 06:00 03/30/21 05:49 Tamsulosin 0.4 Mg Capsule PO 0.4 mg DAILY@06 NIKHIL Administration PFSH Acute PFSH: Medical History (Updated 03/30/21 @ 08:59 by KAPIL Garcia) Anxiety and depression Atrial fibrillation Atrial fibrillation Atrial fibrillation with RVR Bladder cancer CHF exacerbation Chronic anticoagulation COPD (chronic obstructive pulmonary disease) COPD (chronic obstructive pulmonary disease) Cystitis cystica Genital lesion, male History of prostate cancer Hyperlipidemia Hypertension Iron deficiency anemia Left atrial enlargement 4.9 cm width Mitral regurgitation Obstructive sleep apnea Peripheral vascular disease of extremity Renal calculi Surgical History H/O esophagogastroduodenoscopy H/O eye surgery H/O eye surgery detached retina left eye History of colonoscopy (~2004) History of laparotomy History of lithotripsy History of ureter stent Family History Mother , at age 94 Hypertension Heart disease Father , at age 72 Renal disease Heart disease Brother Heart disease Other CAD (coronary artery disease) Cancer Denies family history of Anesthesia complication Bleeding disorder Social History Quit status (tobacco): has quit using tobacco Year quit tobacco: 2020 - 1PPD x 50 Years Second hand smoke exposure: Yes Smoking risk assessment/counseling performed?: No Alcohol intake: current Alcohol intake frequency: 3 or more drinks per day Alcohol type: hard liquor Desire information about alcohol rehabilitation?: No Counseling given: Yes Counseling given: No Adopted: No Caregiver/support person: No Lives independently: Yes Household members: none Marital status: Single Current occupational status: retired History of recent travel: No Current gender identity: Male Dietary Habits: Current diet type/program: regular Caffeine: Yes During the past year weight has: remained stable Exercise: What type of physical activity do you participate in?: none Safety: Seatbelt use: always Home Safety: Working smoke detector in home: Yes Fire extinguisher in home: Yes Carbon monoxide detector in home: No Vitals/I&O/Wt Last Vital Signs Temp 97.6 F 03/30/21 08:00 Pulse 93 03/30/21 08:00 Resp 18 03/30/21 08:00 BP 158/53 03/30/21 08:00 Pulse Ox 91 03/30/21 08:00 03/29/21 03/30/21 03/30/21 22:59 06:59 14:59 Intake Total 50 / 50 Output Total 1200 / 1200 Balance 50 / 50 -1200 / -1150 Weight last 48 hrs Weight 242 lb 3.2 oz Weight 242 lb 2 oz Weight 244 lb Physical Exam Narrative: EXAM NARRATIVE: He is alert oriented x3 has good general appearance normal normal affect he is sitting on the side of the bed. Has full range of motion of both upper extremities can flex and extend rotate his cervical spine without problems. He has normal station light touch in both upper extremities skin is clear warm hands are warm with good cap refill, appears to fire in all motor groups with 5 out of 5 strength. Radial pulses are palpable. Normal sensation light touch. No palpable pain in the thoracic spine. Mild palpatory pain in the lumbar region. He has palpable pain over both hips. Mildly positive logroll bilaterally. Skin is clear warm of both lower extremities. His feet are warm with good cap refill. He is able to dorsiflex and plantarflex both ankles. He has normal sensation light touch down both lower extremities. Dorsalis pedis and posterior tibial pulses are 2+. No palpable edema in either lower extremity. Calves are supple. Resp: COMMON NORMALS: normal respiratory effort Cardio: COMMON NORMALS: regular rate and regular rhythm RATE: regular rate RHYTHM: regular rhythm : COMMON NORMALS: Yes no CVA tenderness BLADDER/KIDNEY EXAM: Yes no CVA tenderness Back/Pelvis: COMMON NORMALS: no CVA tenderness Psych: COMMON NORMALS: mental status grossly normal and cooperative A&P Assessment and plan (1) Bilateral pubic rami fractures: Discussed at length with the patient no operative intervention at this time. Will allow physical therapy to consult with weightbearing as tolerated on the left lower extremity do toe-touch weightbearing to the right lower extremity due to his acetabular fracture. See him back in the office in 2 weeks time or call if he is having problems sooner. 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 Expanded Problem Focused Diagnoses Bilateral pubic rami fractures S32.591A; S32.592A Closed right acetabular fracture S32.401A Sacral fracture, closed S32.10XA Documented by User: Rhys Cruz DO 03/30/21 09:19 Meds/Allergies Home Medications and Allergies Home Medications Medication Instructions Recorded Confirmed Last Taken Type Eliquis 5 mg PO BID@06,18 07/20/19 03/29/21 02/20/21 History Spiriva Respimat 1 puff INHALATION BID@0600,1800 07/20/19 03/29/21 02/20/21 History fluticasone propionate [Flonase 1 spray INTRANASAL BID PRN 07/20/19 03/29/21 08/14/20 History Allergy Relief] isosorbide mononitrate 20 mg PO BID 07/20/19 03/29/21 02/20/21 History tamsulosin [Flomax] 0.4 mg PO DAILY@06 07/20/19 03/29/21 02/20/21 History ferrous sulfate [iron] 325 mg PO DAILY 10/27/19 03/29/21 02/20/21 History mirtazapine 30 mg PO DAILY@10/27/19 03/29/21 02/19/21 History ropinirole 3 mg PO DAILY@10/27/19 03/29/21 02/19/21 History albuterol sulfate 2.5 mg INHALATION Q6H PRN 05/21/20 03/29/21 03/29/21 History thiamine mononitrate (vit B1) 100 mg PO DAILY@06/02/20 03/29/21 02/20/21 History [Vitamin B-1 (mononitrate)] albuterol sulfate 2 inh INHALATION BID PRN 06/24/20 03/29/21 08/14/20 History fluticasone propion-salmeterol 1 puff INHALATION BID@0600,1800 08/14/20 03/29/21 02/20/21 History [Advair Diskus] buspirone 15 mg PO BID@09/10/20 03/29/21 02/20/21 History methenamine hippurate 1 g PO BID@09/10/20 03/29/21 02/20/21 History folic acid 1 mg PO DAILY #30 tab 09/11/20 03/29/21 02/20/21 Rx ascorbate calcium (vitamin C) 500 1,000 mg PO BID@,18 tab 12/09/20 03/29/21 02/20/21 History mg tablet amitriptyline 10 mg tablet 10 mg PO BEDTIME tab 01/21/21 03/29/21 02/19/21 History furosemide 40 mg tablet 40 mg PO BID 01/21/21 03/29/21 02/20/21 History lisinopril 2.5 mg tablet 2.5 mg PO DAILY 01/21/21 03/29/21 02/20/21 History potassium chloride 10 mEq 10 meq PO BID tab 01/21/21 03/29/21 02/20/21 History tablet,extended release(part/cryst) bumetanide 1 mg PO DAILY 02/20/21 03/29/21 02/20/21 History metoprolol tartrate 50 mg PO BID 02/20/21 03/29/21 02/20/21 History cilostazol 50 mg PO BID@03/29/21 03/29/21 Unknown History diltiazem HCl [DILT-XR] 240 mg PO DAILY 03/29/21 03/29/21 Unknown History ibuprofen 400 mg PO Q4H PRN 03/29/21 03/29/21 Unknown History lactulose 15 ml PO TID PRN 03/29/21 03/29/21 Unknown History naproxen 500 mg PO BID PRN 03/29/21 03/29/21 Unknown History pravastatin 40 mg PO QPM 03/29/21 03/29/21 Unknown History sulfamethoxazole-trimethoprim 1 tab PO BID 03/29/21 03/29/21 Unknown History triamcinolone acetonide 1 applic TOPICAL BID PRN 03/29/21 03/29/21 Unknown History Allergies Allergy/AdvReac Type Severity Reaction Status Date / Time No Known Allergies Allergy Verified 03/29/21 14:04 PFSH Acute PFSH: Medical History (Updated 03/30/21 @ 08:59 by KAPIL Garcia) Anxiety and depression Atrial fibrillation Atrial fibrillation Atrial fibrillation with RVR Bladder cancer CHF exacerbation Chronic anticoagulation COPD (chronic obstructive pulmonary disease) COPD (chronic obstructive pulmonary disease) Cystitis cystica Genital lesion, male History of prostate cancer Hyperlipidemia Hypertension Iron deficiency anemia Left atrial enlargement 4.9 cm width Mitral regurgitation Obstructive sleep apnea Peripheral vascular disease of extremity Renal calculi Surgical History H/O esophagogastroduodenoscopy H/O eye surgery H/O eye surgery detached retina left eye History of colonoscopy (~2004) History of laparotomy History of lithotripsy History of ureter stent Family History Mother , at age 94 Hypertension Heart disease Father , at age 72 Renal disease Heart disease Brother Heart disease Other CAD (coronary artery disease) Cancer Denies family history of Anesthesia complication Bleeding disorder Social History Quit status (tobacco): has quit using tobacco Year quit tobacco: 2020 - 1PPD x 50 Years Second hand smoke exposure: Yes Smoking risk assessment/counseling performed?: No Alcohol intake: current Alcohol intake frequency: 3 or more drinks per day Alcohol type: hard liquor Desire information about alcohol rehabilitation?: No Counseling given: Yes Counseling given: No Adopted: No Caregiver/support person: No Lives independently: Yes Household members: none Marital status: Single Current occupational status: retired History of recent travel: No Current gender identity: Male A&P Assessment and plan (1) Sacral fracture, closed: Pt has bilateral sacral ala fractures and pubic rami fractures. At this point patient is comfortable in bed. WBAT f/u ortho clinic 2 weeks. 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
[2021-03-30] MEDS: metoprolol tartrate 50 mg Tablet PO ×2 (08:47→18:29)
[2021-03-30] MEDS: folic acid 1 mg Tablet PO (08:47)
[2021-03-30] MEDS: predniSONE 20 mg Tablet 40 MG PO (08:47)
[2021-03-30] MEDS: famotidine 20 mg Tablet PO ×2 (08:47→18:30)
[2021-03-30] MEDS: multivitamin therapeutic Tablet 1 TAB PO (08:47)
[2021-03-30] MEDS: thiamine 100 mg Tablet PO (08:47)
[2021-03-30] MEDS: dilTIAZem ER (24HR) 240 mg Capsule PO (08:47)
[2021-03-30] MEDS: ferrous sulfate EC 325 mg Tablet PO (08:47)
[2021-03-30] MEDS: ipratropium-albuterol 3 mL Neb INHALATION ×3 (09:02→20:21)
--- NOTE | 2021-03-30 16:06 | PM.PN ---
Subjective Subjective: Interval history: Patient was seen this morning, he tells me that he continues to have pain in his coccyx, also right-sided hip pain, he tells me that the pain medication is helping, no fevers, chills, nausea, no vomiting, no chest pain, Vitals/I&O/Wt Last Vital Signs Temp 97.8 F 03/30/21 16:00 Pulse 94 03/30/21 16:00 Resp 18 03/30/21 16:00 BP 167/70 03/30/21 16:00 Pulse Ox 93 03/30/21 16:00 03/30/21 03/30/21 03/30/21 06:59 14:59 22:59 Intake Total 240 / 240 Output Total 1200 / 1200 900 / 900 Balance -1200 / -1150 240 / 240 -900 / -660 Weight last 48 hrs Weight 109.86 kg Weight 109.826 kg Weight 110.677 kg Physical Exam Const: COMMON NORMALS: no acute distress and patient oriented x3 Resp: COMMON NORMALS: normal respiratory effort, No retractions, No use of accessory muscles and clear to auscultation bilaterally AUSCULTATION: clear to auscultation bilaterally Cardio: COMMON NORMALS: regular rate, regular rhythm, S1 normal heart sound present and S2 normal heart sound present RATE: regular rate RHYTHM: regular rhythm HEART SOUNDS: S1 normal heart sound present and S2 normal heart sound present GI: COMMON NORMALS: Normal to inspection, nondistended, normoactive bowel sounds present, Soft to palpation and non-tender PALPATION: Yes Soft to palpation Extremity: COMMON NORMALS: no pedal edema Neuro: COMMON NORMALS: patient oriented x3 Psych: COMMON NORMALS: mental status grossly normal Urinary Catheter Management^: 2-way Urethral: Cath Placed During This Visit: yes Urinary Catheter Date of Insertion: 03/30/21 Urinary Catheter Time of Insertion: 16:50 Data : 03/30/21 05:18 03/30/21 05:18 A&P Assessment and plan (1) Fracture of pubic ramus: -Has bilateral pubic rami fracture, closed right acetabular fracture, sacral fracture -Associated with mechanical fall -Possibly patient's alcoholism is playing a role -1. Comminuted left greater than right bilateral superior and inferior pubic rami fractures extending to the pubic symphysis with associated hematoma in the anterior pelvis and left kidney pelvis. 2. Comminuted fracture involving the right anterior acetabulum. 3. Bilateral sacral fractures extending from the sacral inlet through the sacral ala bilaterally. 4. Bilateral L5 transverse process fractures left greater than right. -Dr. Cruz was consulted by ER, recommended medical management, but can consider surgical intervention based on clinical progress Plan: -Admit to general medical floors -Pain control -PT OT -SCDs for DVT prophylaxis -Patient is weightbearing as tolerated on the left lower extremity due to toe-touch weightbearing right lower extremity due to his acetabular fracture -Anticoagulation currently contraindicated given patient's hematomas, fall on Eliquis, risk of bleeding, will resume in the next 24 hours -CODE STATUS patient is okay with CPR, declines intubation Multiple superficial bruising, hematomas, associated with fall in a patient on Eliquis, monitor hemoglobin hold Eliquis Atrial fibrillation, continue Cardizem, metoprolol COPD exacerbation, DuoNeb, prednisone CHF, diastolic, with mitral regurg, does have 1+ pitting edema bilaterally, resume Lasix Acute kidney injury, resolved, postobstructive component, UTI UTI, start Rocephin, await urine culture Alcohol abuse, CIWA protocol Distended bladder, trouble urinating, Mckeon catheter in place Status: Acute (2) Atrial fibrillation: Status: Acute Qualifiers: Atrial fibrillation type: longstanding persistent Qualified Code(s): I48.11 - Longstanding persistent atrial fibrillation (3) Mitral regurgitation: Status: Acute Qualifiers: Cardiac valve disease etiology: nonrheumatic Qualified Code(s): I34.0 - Nonrheumatic mitral (valve) insufficiency (4) COPD exacerbation: Status: Acute (5) COPD (chronic obstructive pulmonary disease): Status: Acute (6) GERD (gastroesophageal reflux disease): Status: Acute (7) Hyperlipidemia: Status: Acute (8) Hypertension: Status: Acute Qualifiers: Hypertension type: essential hypertension Qualified Code(s): I10 - Essential (primary) hypertension (9) Closed right acetabular fracture: Status: Acute (10) Bilateral pubic rami fractures: Status: Acute Attestations Medical Necessity Statement*: Patient requires hospitalization for right acetabular fracture, bilateral pubic rami fracture, UTI, requiring pain control and physical therapy Coding Level of Care Code Acute Restaurant 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
[2021-03-30] MEDS: cefTRIAXone 1,000 MG in sodium chloride 0.9% (plus) 50 ML 100 MG IV (16:15)
--- NOTE | 2021-03-30 17:16 | PC.NUTR ---
Nutrition note: Pt triggered for nutritional assessment due to MST score of 3 at admission. Reported decreased appetite, however consumed 100% breakfast per chart. Reported 'unsure' of weight loss however no significant wt loss noted per previous admission records. Will assess at 5 day LOS or as needed per consult.
[2021-03-30] MEDS: ropinirole 2 mg Tablet 3 MG PO (18:30)
[2021-03-30] MEDS: atorvastatin 40 mg Tablet PO (18:30)
[2021-03-30] MEDS: mirtazapine 30 mg Tablet PO (18:32)
[2021-03-31] VITALS (8 sets, daily range): BP systolic 133–154; BP diastolic 76–83; PULSE 85–102; RESP 16–20; TEMP 36.4–36.8; O2SAT 90–95
[2021-03-31] MEDS: morphine 4 mg/mL SDV 1 mL 2 MG IVP ×2 (03:15→09:06)
[2021-03-31] MEDS: tamsulosin 0.4 mg Capsule PO (06:04)
[2021-03-31] MEDS: BuSPIRONE 10 mg Tablet 15 MG PO (06:04)
[2021-03-31 06:10] LABS: Basophils % 0.2 %; Eosinophils # 0.1 10^3/uL (0.0-0.8); Eosinophils % 0.6 %; Hematocrit 36.7 % (42.0-52.0); Hemoglobin 11.7 g/dL (11.7-16.6); Lymphocytes # 1.5 10^3/uL (0.8-4.8); Lymphocytes % 11.6 %; Mean Corpuscular HGB Conc 31.9 g/dL (30.0-36.0); Mean Corpuscular Volume 94.1 fl (80-94); Mean Platelet Volume 9.7 fL (7.4-10.4); Monocytes % 7.5 %; Neutrophils # 9.92 10^3/uL (1.8-7.7); Neutrophils % 78.7 %; Nucleated Red Blood Cells % 0 %; Platelet Count 306 10^3/cmm (130-400); Red Cell Distribution Width 15.6 % (12.1-15.1); White Blood Count 12.6 10^3/uL (4.0-10.0)
[2021-03-31 06:45] LABS: Alanine Aminotransferase 15 U/L (0-41); Albumin Level 3.1 g/dL (3.5-5.2); Alkaline Phosphatase 144 IU/L (40-130); Aspartate Amino Transferase 20 U/L (0-40); Blood Urea Nitrogen 20 mg/dL (8-23); Calcium 9.5 mg/dL (8.5-10.5); Carbon Dioxide 27 mmol/L (22-29); Chloride 99 mmol/L (98-107); Globulin 3.2 g/dL (1.3-4.6); Glucose 123 mg/dL (65-115); Magnesium 2.1 mg/dL (1.7-2.3); Osmolality Calculated 286 mOsm/kg (285-295); Phosphorus 2.2 mg/dL (2.5-4.5); Sodium 136 mmol/L (136-145); Total Bilirubin 0.3 mg/dL (0.15-1.2); Total Protein 6.3 g/dL (6.6-8.7)
[2021-03-31] MEDS: ipratropium-albuterol 3 mL Neb INHALATION (08:17)
[2021-03-31] MEDS: ferrous sulfate EC 325 mg Tablet PO (09:05)
[2021-03-31] MEDS: thiamine 100 mg Tablet PO (09:05)
[2021-03-31] MEDS: famotidine 20 mg Tablet PO (09:05)
[2021-03-31] MEDS: folic acid 1 mg Tablet PO (09:06)
[2021-03-31] MEDS: predniSONE 20 mg Tablet 40 MG PO (09:06)
[2021-03-31] MEDS: bumetanide 1 mg Tablet PO (09:06)
[2021-03-31] MEDS: metoprolol tartrate 50 mg Tablet PO (09:06)
[2021-03-31] MEDS: lisinopril 2.5 mg Tablet PO (09:06)
[2021-03-31] MEDS: dilTIAZem ER (24HR) 240 mg Capsule PO (09:06)
[2021-03-31] MEDS: multivitamin therapeutic Tablet 1 TAB PO (09:06)
[2021-03-31 10:32] LABS: SARS Covid-2 Antigen Negative (Negative)
--- NOTE | 2021-03-31 12:25 | P.DS_ITS ---
Discharge Providers Date of Admission: 03/29/21 17:04 Date of Discharge: March 31, 2021 Attending Provider at Admission: Alonso Cotto MD Attending Provider at Discharge: Alonso Cotto MD Primary Care Provider: Randolph Carlson MD Diagnoses at Discharge Discharge Diagnosis (1) Fracture of pubic ramus: Status: Acute (2) Atrial fibrillation: Status: Acute Qualifiers: Atrial fibrillation type: longstanding persistent Qualified Code(s): I48.11 - Longstanding persistent atrial fibrillation (3) Mitral regurgitation: Status: Acute Qualifiers: Cardiac valve disease etiology: nonrheumatic Qualified Code(s): I34.0 - Nonrheumatic mitral (valve) insufficiency (4) COPD exacerbation: Status: Acute (5) COPD (chronic obstructive pulmonary disease): Status: Acute (6) GERD (gastroesophageal reflux disease): Status: Acute (7) Hyperlipidemia: Status: Acute (8) Hypertension: Status: Acute Qualifiers: Hypertension type: essential hypertension Qualified Code(s): I10 - Essential (primary) hypertension (9) Closed right acetabular fracture: Status: Acute (10) Bilateral pubic rami fractures: Status: Acute Reason for Visit Reason for Visit: FALL/ L LEG PAIN/ BILATERAL HIP PAIN Hospital Course Hospital Course Damien Stringer is a 76 year old male atrial fibrillation on Eliquis, COPD, GWYN, diastolic CHF, anxiety depression, history of alcohol abuse, severe mitral regurg, history of bladder cancer, history of prostate cancer, history of multiple UTIs, who presents to [facility] due to fall, and complains of lower pelvic pain, sacral pain. Patient was admitted to [facility] with mechanical fall resulting in bilateral pubic rami fractures, right acetabular fracture, bilateral sacral fractures, L5 transverse fractures, orthopedic service was consulted, recommended medical management. Patient was admitted for pain control, PT OT, and clinically monitored. Patient was discharged to custodial toe-touch nonw eightbearing right lower extremity PT OT, follow with Dr. Cruz in 1 to 2 weeks. For his UTI, discharged on 3 remaining days of cefdinir Patient had multiple bruising and hematomas associated with his fall, hemoglobin stable, resume Eliquis on discharge. Patient had urinary retention, distended bladder, trouble urinating, likely secondary to enlarged prostate, discharge with Mckeon catheter in place, follow- up with Dr. Sheth in 1 to 2 weeks for voiding trial Patient had a mild COPD exacerbation, discharged on the present burst Physical Exam Const: COMMON NORMALS: no acute distress and patient oriented x3 Resp: COMMON NORMALS: normal respiratory effort, No retractions, No use of accessory muscles and clear to auscultation bilaterally AUSCULTATION: clear to auscultation bilaterally Cardio: COMMON NORMALS: regular rate, regular rhythm, S1 normal heart sound present and S2 normal heart sound present RATE: regular rate RHYTHM: regular rhythm HEART SOUNDS: S1 normal heart sound present and S2 normal heart sound present GI: COMMON NORMALS: Normal to inspection, nondistended, normoactive bowel sounds present, Soft to palpation and non-tender PALPATION: Yes Soft to palpation Extremity: COMMON NORMALS: no pedal edema Neuro: COMMON NORMALS: patient oriented x3 Psych: COMMON NORMALS: mental status grossly normal Urinary Catheter Management^: 2-way Urethral: Cath Placed During This Visit: yes Reason for Continuing Indwelling Catheter: Acute Urinary Retention or Obstruction Urinary Catheter Date of Insertion: 03/30/21 Urinary Catheter Time of Insertion: 16:50 Discharge Data Data Completed and Pending: Completed Studies During Hospitalization Category Date Time Status CT pelvis wo con [id number] Stat Cat Scan 03/29/21 12:40 Completed XR chest 1V rebecca ble [id number] Routine Exams 03/29/21 17:04 Completed XR hip BI m 5V wo /w pel* [id number] Stat Exams 03/29/21 10:46 Completed Pending at discharge Category Date Time Status Complete Blood Co unt w/Auto AM LABS Lab 04/01/21 04:00 Ordered Complete Blood Co unt w/Auto AM LABS Lab 04/02/21 04:00 Ordered Comprehensive Met abolic Panel AM LA BS Lab 04/01/21 04:00 Ordered Comprehensive Met abolic Panel AM LA BS Lab 04/02/21 04:00 Ordered Erythrocyte Sedim entation Rate Rout ine Lab 03/29/21 16:48 Received Magnesium AM LABS Lab 04/01/21 04:00 Ordered Phosphorus AM LAB S Lab 04/01/21 04:00 Ordered Urine Culture Sta t Lab 03/30/21 00:22 Results Labs from last 24 hours 03/31/21 03/31/21 03/31/21 09:13 05:39 05:39 WBC 12.6 H RBC 3.90 L Hgb 11.7 Hct 36.7 L MCV 94.1 H MCH 30.0 MCHC 31.9 RDW 15.6 H Plt Count 306 MPV 9.7 Neut % (Auto) 78.7 Lymph % (Auto) 11.6 [place] % (Auto) 7.5 Eos % (Auto) 0.6 Baso % (Auto) 0.2 Neut # (Auto) 9.92 H Lymph # (Auto) 1.5 [place] # (Auto) 1.0 H Eos # (Auto) 0.1 Baso # (Auto) 0.0 Nucleated RBC % (a uto) 0 Nucleated RBCs # 0.0 Sodium 136 Potassium 4.0 Chloride 99 Carbon Dioxide 27 Anion Gap 14.0 BUN 20 Creatinine 0.8 GFR Calculation Not Reportable Glucose 123 H Calculated Osmolal ity 286 Calcium 9.5 Phosphorus 2.2 L Magnesium 2.1 Total Bilirubin 0.3 AST 20 ALT 15 Alkaline Phosphata se 144 H Total Protein 6.3 L Albumin 3.1 L Globulin 3.2 SARS-CoV-2 Ag (Rap id) Negative Vitals: Last Vital Signs Temp 97.8 F 03/31/21 11:32 Pulse 85 03/31/21 11:32 Resp 16 03/31/21 11:32 BP 135/83 03/31/21 11:32 Pulse Ox 91 03/31/21 11:32 Discharge Plan Discharge Patient Disposition: Home Condition: Stable Prescriptions: New prednisone 20 mg Tablet 40 mg PO DAILY 5 Days Qty: 10 RF: 0 cefdinir 300 mg capsule 300 mg PO BID 3 Days Qty: 6 RF: 0 Continued ascorbate calcium (vitamin C) 500 mg tablet 1,000 mg PO BID@ RF: 0 albuterol sulfate 2.5 mg /3 mL (0.083 %) solution for nebulization 2.5 mg inhalation Q6H PRN (Reason: Shortness Of Breath) RF: 0 amitriptyline 10 mg tablet 10 mg PO BEDTIME RF: 0 lisinopril 2.5 mg tablet 2.5 mg PO DAILY RF: 0 ropinirole 3 mg Tablet 3 mg PO DAILY@19 RF: 0 mirtazapine 30 mg Tablet 30 mg PO DAILY@18 RF: 0 ferrous sulfate [iron] 325 mg (65 mg iron) Tablet 325 mg PO DAILY RF: 0 thiamine mononitrate (vit B1) [Vitamin B-1 (mononitrate)] 100 mg tablet 100 mg PO DAILY@06 RF: 0 fluticasone propion-salmeterol [Advair Diskus] 250-50 mcg/dose blister with device 1 puff inhalation BID@0600,1800 RF: 0 potassium chloride 10 mEq tablet,ER particles/crystals 10 meq PO BID RF: 0 isosorbide mononitrate 20 mg tablet 20 mg PO BID RF: 0 tamsulosin [Flomax] 0.4 mg capsule 0.4 mg PO DAILY@06 RF: 0 fluticasone propionate [Flonase Allergy Relief] 50 mcg/actuation spray,suspension 1 spray INTRANASAL BID PRN (Reason: Allergy Symptoms) RF: 0 Spiriva Respimat 2.5 mcg/actuation mist 1 puff INHALATION BID@0600,1800 RF: 0 Eliquis 5 mg tablet 5 mg PO BID@,18 RF: 0 Hold Instructions: Resume on 04/27/20. methenamine hippurate 1 gram Tablet 1 g PO BID@,18 RF: 0 buspirone 15 mg Tablet 15 mg PO BID@,18 RF: 0 folic acid 1 mg Tablet 1 mg PO DAILY Qty: 30 RF: 0 metoprolol tartrate 50 mg tablet 50 mg PO BID RF: 0 DILT-XR 240 mg capsule,ext.rel 24h degradable 240 mg PO DAILY RF: 0 pravastatin 40 mg tablet 40 mg PO QPM RF: 0 cilostazol 50 mg tablet 50 mg PO BID@,18 RF: 0 lactulose 10 gram/15 mL solution 15 ml PO TID PRN (Reason: Constipation) RF: 0 triamcinolone acetonide 0.1 % cream 1 applic TOPICAL BID PRN (Reason: unknown) RF: 0 Changed furosemide 40 mg tablet 40 mg PO BIDWM Qty: 0 RF: 0 Discontinued albuterol sulfate 90 mcg/actuation HFA aerosol inhaler 2 inh INHALATION BID PRN (Reason: shortness of breath or wheezing) RF: 0 bumetanide 1 mg tablet 1 mg PO DAILY RF: 0 sulfamethoxazole-trimethoprim 800-160 mg tablet 1 tab PO BID RF: 0 ibuprofen 200 mg Tablet 400 mg PO Q4H PRN (Reason: Pain) RF: 0 naproxen 500 mg tablet 500 mg PO BID PRN (Reason: Pain) RF: 0 Discharge Orders: Discharge Order (Routine); Ordered 03/31/21 Ordered By: Alonso Cotto Referrals: Rhys Cruz DO [Physician] - 1 week (pubic rami, acetabular fx) Randolph Carlson MD [Primary Care Provider] - Wes Sheth MD [Physician] - 2 weeks (bph, urinary retention) Discharge Diet: Usual diet Discharge Activity: Limit activity as instructed Patient Instructions: Opioid Safety Activity Restrictions/Additional Instructions: -Toe-touch nonweightbearing right lower extremity -PT OT -Follow-up with Dr. Cruz -pain control ,norco Discharge Attestations Time Spent in Discharge Care*: less than 30 min Status at Discharge: Cognitive status at discharge: cognitively intact , Behavioral status at discharge: cooperative , Quality Metrics Clinical Quality Measures During this hospital stay, did patient experience: None Coding Level of Care Code Acute [facility] [place] note Diagnoses Fracture of pubic ramus S32.599A Atrial fibrillation I48.11 Atrial fibrillation type: longstanding persistent Mitral regurgitation I34.0 Cardiac valve disease etiology: nonrheumatic COPD exacerbation J44.1 COPD (chronic obstructive pulmonary disease) J44.9 GERD (gastroesophageal reflux disease) K21.9 Hyperlipidemia E78.5 Hypertension I10 Hypertension type: essential hypertension Closed right acetabular fracture S32.401A Bilateral pubic rami fractures S32.591A; S32.592A
--- NOTE | 2021-03-31 13:03 | PC.NURSE ---
Report called to LIZET Samuels at [facility] and all questions answered.
[2021-04-01 16:46] LABS: Erythrocyte Sedimentation Rate 53 mm/hr (0-10)
== END 2021-03-31 17:31 | disposition home or self-care (01) ==
LOC: ER 13:33 → MEDSURG 15:26
PROVIDERS: Admitting Provider Family Medicine; Emergency Provider Family Medicine; PCP Family Medicine; Visit Provider Family Medicine
DX: S32.592A Other specified fracture of left pubis, initial encounter for closed fracture (principal); S32.401A Unspecified fracture of right acetabulum, initial encounter for closed fracture; S32.591A Other specified fracture of right pubis, initial encounter for closed fracture; W07.XXXA Fall from chair, initial encounter; I48.11 Longstanding persistent atrial fibrillation; I34.0 Nonrheumatic mitral (valve) insufficiency; J44.1 Chronic obstructive pulmonary disease with (acute) exacerbation; K21.9 Gastro-esophageal reflux disease without esophagitis; E78.5 Hyperlipidemia, unspecified; Z79.01 Long term (current) use of anticoagulants; G47.33 Obstructive sleep apnea (adult) (pediatric); I11.0 Hypertensive heart disease with heart failure; I50.30 Unspecified diastolic (congestive) heart failure; F41.9 Anxiety disorder, unspecified; F32.9 Major depressive disorder, single episode, unspecified; Z85.51 Personal history of malignant neoplasm of bladder; N39.0 Urinary tract infection, site not specified; Z87.891 Personal history of nicotine dependence
CPT/HCPCS: 36415; 51702; 71045; 72192; 73523; 80053; 80320; 82550; 83735; 83880; 84100; 84145; 85025; 85610; 85651; 86140; 87086; 87426; 94640; 94664; 96365; 96372; 96375; 96376; 97110; 97162; 97166; 97530; 99285; G0378; J0696; J2270; J2405; J3411; J7512

== ENCOUNTER → 2021-04-06 09:16 | Outpatient (BNVA) | payer MEDICARE, MEDICAID, SELFPAY | PROVIDERS: PCP Family Medicine; Visit Provider Physician Assistant | DX: S32.591A Other specified fracture of right pubis, initial encounter for closed fracture (principal); S32.592A Other specified fracture of left pubis, initial encounter for closed fracture; X58.XXXA Exposure to other specified factors, initial encounter | CPT/HCPCS: 72190 ==

== ENCOUNTER 2021-04-08 23:01 | Emergency (ER) | payer MEDICARE, MEDICAID, SELFPAY ==
[2021-04-08 23:02] VITALS: BP 149/83; PULSE 116; RESP 24; TEMP 36.7; O2SAT 92; BMI 29.7
[2021-04-08 23:06] VITALS: BP 134/62; PULSE 103; RESP 19; O2SAT 93
--- NOTE | 2021-04-08 23:06 | XRR_ITS ---
PROCEDURE INFORMATION: Exam: XR Chest Exam date and time: 04/08/2021 11:06 PM Age: 76 years old Clinical indication: Shortness of breath; Additional info: SOB TECHNIQUE: Imaging protocol: XR of the chest. Views: 1 view. COMPARISON: CR (CHEST, ) 03/29/2021 5:04 PM FINDINGS: Lungs: There is some partial atelectasis at both lung bases. Pleural spaces: Unremarkable. No pleural effusion. No pneumothorax. Heart/Mediastinum: Heart is within normal limits of size. Vasculature: There are atherosclerotic calcifications in the aortic arch. Bones/joints: Unremarkable. XR/XR chest 1V portable [id number] IMPRESSION: Mild basilar atelectasis. Radiation Dose CTDIVOL = (mGy): DLP = (mGy-cm)
--- NOTE | 2021-04-08 23:06 | ECG_ITS ---
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 Measurements Intervals Cummings Rate: 110 P: [place]: QRS: 13 QRSD: 80 T: 67 QT: 307 QTc: 416 Interpretive Statements ATRIAL FIBRILLATION WITH RAPID VENTRICULAR RESPONSE WITH ABERRANT CONDUCTION OR VENTRICULAR PREMATURE COMPLEXES ABNORMAL RHYTHM ECG Compared to ECG 02/20/2021 17:34:41 Aberrant conduction of supraventricular beat(s) now present Ventricular premature complex(es) now present Electronically Signed On 04-10-2021 8:54:11 CDT by Marita Ansari M.D. [id number]
[2021-04-08 23:22] LABS: Basophils # 0.1 10^3/uL (0.0-0.1); Basophils % 0.3 %; Eosinophils # 0.4 10^3/uL (0.0-0.8); Eosinophils % 2.4 %; Hematocrit 38.5 % (42.0-52.0); Hemoglobin 12.2 g/dL (11.7-16.6); Lymphocytes # 1.7 10^3/uL (0.8-4.8); Mean Corpuscular HGB Conc 31.7 g/dL (30.0-36.0); Mean Corpuscular Hemoglobin 29.9 pg (28.0-34.0); Mean Corpuscular Volume 94.4 fl (80-94); Mean Platelet Volume 9.5 fL (7.4-10.4); Monocytes # 1.1 10^3/uL (0.2-0.9); Monocytes % 7.3 %; Neutrophils # 12.32 10^3/uL (1.8-7.7); Neutrophils % 78.4 %; Nucleated Red Blood Cells % 0 %; Platelet Count 334 10^3/cmm (130-400); Red Blood Count 4.08 10^6/uL (4.1-5.3); Red Cell Distribution Width 15.7 % (12.1-15.1); White Blood Count 15.7 10^3/uL (4.0-10.0)
--- NOTE | 2021-04-08 23:22 | W.ED.SOB ---
HPI - SOB/Dyspnea General: Chief Complaint: Shortness of Breath/Dyspnea Stated Complaint: RESP. DISTRESS/PAIN ALL OVER Time Seen by Provider: 04/08/21 23:02 Source: patient and EMS Mode of arrival: EMS Limitations: no limitations History of Present Illness: HPI Narrative: 76-year-old male who is a history of COPD and a recent pelvic fracture. He is admitted to [facility] for rehab of the pelvic fracture. States that today has been having increasing dyspnea with wheezing EMS gave breathing treatment is not requiring oxygen but states that a slight cough as well. He had full body pain that is chronic in nature. Denies any chest pain denies any fever. Associated symptoms: Deny abdominal pain, chest pain, fever(s), nausea or vomiting Review of Systems Const: Denies: fever(s), chills, body aches or change in appetite Eyes: Denies: blurry vision or eye discomfort ENMT: Denies: throat pain or dental pain Card: Denies: chest pain Resp: Reports: dyspnea GI: Denies: abdominal pain, nausea, vomiting or diarrhea : Denies: dysuria Musc: Denies: neck pain or back pain Skin/Breast: Denies: rash Neuro: Denies: headache(s) Psych: Denies: depression Geovanni/Lymph: Denies: easy bruising All/Imm: Denies: urticaria PFSH ED PFSH: Medical History Anxiety and depression Atrial fibrillation Atrial fibrillation Atrial fibrillation with RVR Bladder cancer CHF exacerbation Chronic anticoagulation COPD (chronic obstructive pulmonary disease) COPD (chronic obstructive pulmonary disease) Cystitis cystica Genital lesion, male History of prostate cancer Hyperlipidemia Hypertension Iron deficiency anemia Left atrial enlargement 4.9 cm width Mitral regurgitation Obstructive sleep apnea Peripheral vascular disease of extremity Renal calculi Surgical History H/O esophagogastroduodenoscopy H/O eye surgery H/O eye surgery detached retina left eye History of colonoscopy (~2004) History of laparotomy History of lithotripsy History of ureter stent Family History Mother , at age 94 Hypertension Heart disease Father , at age 72 Renal disease Heart disease Brother Heart disease Other CAD (coronary artery disease) Cancer Denies family history of Anesthesia complication Bleeding disorder Social History Smoking and tobacco status: current every day smoker Quit status (tobacco): has quit using tobacco Year quit tobacco: 2020 - 1PPD x 50 Years Second hand smoke exposure: Yes Smoking risk assessment/counseling performed?: No Alcohol intake: current Alcohol intake frequency: 3 or more drinks per day Alcohol type: hard liquor Desire information about alcohol rehabilitation?: No Counseling given: Yes Counseling given: No Adopted: No Caregiver/support person: No Lives independently: Yes Household members: none Marital status: Single Current occupational status: retired History of recent travel: No Current gender identity: Male Physical Exam Const: COMMON NORMALS: no acute distress, patient oriented x3 and healthy appearing HENMT: COMMON NORMALS: normocephalic and atraumatic HEAD & SCALP: normocephalic and atraumatic Eye: COMMON NORMALS: Equal, round and reactive pupils present and EOMs intact bilaterally PUPIL: Yes Equal, round and reactive pupils present Neck/C-Spine: COMMON NORMALS: full ROM and supple Chest: COMMONS NORMALS: normal inspection of the chest and normal palpation of entire chest wall Resp: COMMON NORMALS: normal respiratory effort, No retractions and No use of accessory muscles AUSCULTATION: wheezes Cardio: COMMON NORMALS: regular rate, regular rhythm and No murmurs present (Cardio) RATE: regular rate RHYTHM: regular rhythm GI: COMMON NORMALS: Normal to inspection, nondistended, normoactive bowel sounds present, Soft to palpation, non-tender and no masses PALPATION: Yes Soft to palpation Extremity: COMMON NORMALS: normal to inspection and full ROM Neuro: COMMON NORMALS: patient oriented x3, moves all extremities and no focal motor deficits Psych: COMMON NORMALS: mental status grossly normal, Normal thought process present and cooperative THOUGHT PROCESS: Normal thought process present Skin: COMMON NORMALS: no rashes or lesions noted and no wounds GENERAL SKIN EXAM: no rashes or lesions noted Course Vital Signs: Vital signs: Vital Signs Temperature 98.0 F 04/08/21 23:02 Pulse Rate 106 H 04/09/21 00:06 Respiratory Rate 18 04/09/21 00:18 Blood Pressure 134/62 04/08/21 23:06 Pulse Oximetry 95 04/09/21 00:01 MDM - SOB/Dyspnea MDM Narrative: Medical decision making narrative: Patient presents her dyspnea with CT showing possible pneumonia he likely has chronic bronchitis he is well-appearing here no respiratory distress no signs of pulmonary embolism we will start him on doxycycline he stable for discharge back to the retirement he is return if worsening. His Covid was negative Lab Data: Labs: Lab Results 04/08/21 04/08/21 04/08/21 23:17 23:17 23:17 WBC 15.7 10^3/uL H 10 ^3/uL (4.0-10.0) RBC 4.08 10^6/uL L 10 ^6/uL (4.1-5.3) Hgb 12.2 g/dL g/dL (11.7-16.6) Hct 38.5 % L % (42.0-52.0) MCV 94.4 fl H fl (80-94) MCH 29.9 pg pg (28.0-34.0) MCHC 31.7 g/dL g/dL (30.0-36.0) RDW 15.7 % H % (12.1-15.1) Plt Count 334 10^3/cmm 10^3 /cmm (130-400) MPV 9.5 fL fL (7.4-10.4) Neut % (Auto) 78.4 % % Lymph % (Auto) 11.0 % % [place] % (Auto) 7.3 % % Eos % (Auto) 2.4 % % Baso % (Auto) 0.3 % % Neut # (Auto) 12.32 10^3/uL H 1 0^3/uL (1.8-7.7) Lymph # (Auto) 1.7 10^3/uL 10^3/ uL (0.8-4.8) [place] # (Auto) 1.1 10^3/uL H 10^ 3/uL (0.2-0.9) Eos # (Auto) 0.4 10^3/uL 10^3/ uL (0.0-0.8) Baso # (Auto) 0.1 10^3/uL 10^3/ uL (0.0-0.1) Nucleated RBC % (a uto) 0 % % Nucleated RBCs # 0.0 /100WBC /100W BC PT 14.40 SECONDS SEC ONDS (12.1-14.9) INR 1.09 (0.8-1.2) D-Dimer 3.15 ug/mIFEU H u g/mIFEU (0-0.59) Sodium 134 mmol/L L mmol /L (136-145) Potassium 3.8 mmol/L mmol/L (3.5-5.1) Chloride 94 mmol/L L mmol/ L (98-107) Carbon Dioxide 32 mmol/L H mmol/ L (22-29) Anion Gap 11.8 (5-19) BUN 15 mg/dL mg/dL (8-23) Creatinine 0.7 mg/dL mg/dL (0.7-1.2) GFR Calculation Not Reportable Glucose 106 mg/dL mg/dL (65-115) Calculated Osmolal ity 279 mOsm/kg L mOs m/kg (285-295) Calcium 9.2 mg/dL mg/dL (8.5-10.5) Total Bilirubin 0.3 mg/dL mg/dL (0.15-1.2) AST 16 U/L U/L (0-40) ALT 25 U/L U/L (0-41) Alkaline Phosphata se 200 IU/L H IU/L (40-130) Total Protein 5.4 g/dL L g/dL (6.6-8.7) Albumin 3.0 g/dL L g/dL (3.5-5.2) Globulin 2.4 g/dL g/dL (1.3-4.6) SARS-CoV-2 Ag (Rap id) 04/08/21 23:38 WBC RBC Hgb Hct MCV MCH MCHC RDW Plt Count MPV Neut % (Auto) Lymph % (Auto) [place] % (Auto) Eos % (Auto) Baso % (Auto) Neut # (Auto) Lymph # (Auto) [place] # (Auto) Eos # (Auto) Baso # (Auto) Nucleated RBC % (a uto) Nucleated RBCs # PT INR D-Dimer Sodium Potassium Chloride Carbon Dioxide Anion Gap BUN Creatinine GFR Calculation Glucose Calculated Osmolal ity Calcium Total Bilirubin AST ALT Alkaline Phosphata se Total Protein Albumin Globulin SARS-CoV-2 Ag (Rap id) Negative (Negative) Imaging Data^: CXR: Attestation: I personally reviewed and interpreted this imaging study as follows: Radiologist's impression: no acute abnormality CT Chest: Attestation: I personally reviewed and interpreted this imaging study as follows: Radiologist's impression: [facility] [address] [address] Scan Report Signed Patient: Damien Stringer Unit #: [id number] : 1945 Age/Sex: 76 / M ADM Date: 04/08/21 Loc: ER Room/Bed: Attending Dr: Ordering Provider/Ordering MD: Priya Grullon MD Date of Service: 04/08/21 Procedure(s): CT angio chest PE protcl [id number] Accession Number(s): [id number] Report Number: [id number] PROCEDURE INFORMATION: Exam: CTA Chest With Contrast Exam date and time: 04/08/2021 11:39 PM Age: 76 years old Clinical indication: Abnormal findings; Abnormal diagnostic tests; Elevated d-dimer; Shortness of breath; Patient HX: HX of prostate and bladder cancer. Hip FX on 03/29/21; Additional info: SOB TECHNIQUE: Imaging protocol: Computed tomographic angiography of the chest with contrast. 3D rendering (Not supervised by radiologist): MIP and/or 3D reconstructed images were created by the technologist. Radiation optimization: All CT scans at this facility use at least one of these dose optimization techniques: automated exposure control; mA and/or kV adjustment per patient size (includes targeted exams where dose is matched to clinical indication); or iterative reconstruction. Contrast material: OMNI 350; Contrast volume: 73 ml; Contrast route: INTRAVENOUS (IV); COMPARISON: CT angio chest PE protcl [id number] 06/02/2020 11:24 AM RADIATION DOSE METRICS: Total DLP (mGy-cm): 599.47 FINDINGS: Pulmonary arteries: Normal. No pulmonary emboli. Aorta: There are atherosclerotic changes of the aortic arch and descending thoracic aorta. There is no thoracic aortic aneurysm or dissection. Lungs: There are calcified granulomas in the right lung. There are areas of linear atelectasis at both lung bases and some wedge-shaped areas of consolidation and atelectasis bilaterally but more on the right than on the left. Superimposed pneumonia not entirely excluded. There is some bronchial wall thickening and some mucous plugging in some bronchi in the medial right lung base. Pleural spaces: Unremarkable. No pneumothorax. No pleural effusion. Heart: See Lymph nodes finding. Lymph nodes: There is a single prevascular lymph node measuring approximately 17 mm in diameter. There are AP window lymph nodes measuring up to 12 x 16 mm. These are not significantly changed from previous. Bones/joints: There are old healed fractures of multiple anterior right ribs. Soft tissues: Unremarkable. CT/CT angio chest PE protcl [id number] IMPRESSION: 1. No evidence of pulmonary embolism. 2. Mild adenopathy not significantly changed. 3. Areas of basilar atelectasis and consolidation. 4. Possible developing pneumonia at the right lung base. Clinical correlation follow-up suggested. Radiation Dose CTDIVOL = (mGy): DLP = 599.47 (mGy-cm) Dictated By: Osorio Hwang Signed By: Osorio Hwang Signed Date/Time: 04/09/21 0019 DD/ 2339 EKG Data^: EKG 1: Attestation: I personally reviewed and interpreted this EKG as follows: EKG Interpretation Date: 04/08/21 EKG interpretation time: 23:22 Interpretation: afib hr [address] or t wave abnormalities qrs 80 qtc 372 Discharge Plan Discharge Patient Disposition: Home Clinical Impression: Chronic bronchitis Qualifiers: Chronic bronchitis type: unspecified Qualified Code(s): J42 - Unspecified chronic bronchitis Condition: Stable Prescriptions: New doxycycline hyclate 100 mg tablet 100 mg PO BID 7 Days Qty: 14 RF: 0 No Action ascorbate calcium (vitamin C) 500 mg tablet 1,000 mg PO BID@,18 RF: 0 albuterol sulfate 2.5 mg /3 mL (0.083 %) solution for nebulization 2.5 mg inhalation Q6H PRN (Reason: Shortness Of Breath) RF: 0 amitriptyline 10 mg tablet 10 mg PO BEDTIME RF: 0 lisinopril 2.5 mg tablet 2.5 mg PO DAILY RF: 0 hydrocodone-acetaminophen 10-325 mg tablet 1 tab PO Q8H PRN (Reason: pain) 30 Days Qty: 60 RF: 0 ropinirole 3 mg Tablet 3 mg PO DAILY@19 RF: 0 mirtazapine 30 mg Tablet 30 mg PO DAILY@18 RF: 0 ferrous sulfate [iron] 325 mg (65 mg iron) Tablet 325 mg PO DAILY RF: 0 thiamine mononitrate (vit B1) [Vitamin B-1 (mononitrate)] 100 mg tablet 100 mg PO DAILY@06 RF: 0 fluticasone propion-salmeterol [Advair Diskus] 250-50 mcg/dose blister with device 1 puff inhalation BID@0600,1800 RF: 0 potassium chloride 10 mEq tablet,ER particles/crystals 10 meq PO BID RF: 0 isosorbide mononitrate 20 mg tablet 20 mg PO BID RF: 0 tamsulosin [Flomax] 0.4 mg capsule 0.4 mg PO DAILY@06 RF: 0 fluticasone propionate [Flonase Allergy Relief] 50 mcg/actuation spray,suspension 1 spray INTRANASAL BID PRN (Reason: Allergy Symptoms) RF: 0 Spiriva Respimat 2.5 mcg/actuation mist 1 puff INHALATION BID@0600,1800 RF: 0 Eliquis 5 mg tablet 5 mg PO BID@,18 RF: 0 Hold Instructions: Resume on 04/27/20. methenamine hippurate 1 gram Tablet 1 g PO BID@,18 RF: 0 buspirone 15 mg Tablet 15 mg PO BID@,18 RF: 0 folic acid 1 mg Tablet 1 mg PO DAILY Qty: 30 RF: 0 metoprolol tartrate 50 mg tablet 50 mg PO BID RF: 0 diltiazem HCl [DILT-XR] 240 mg capsule,ext.rel 24h degradable 240 mg PO DAILY RF: 0 pravastatin 40 mg tablet 40 mg PO QPM RF: 0 cilostazol 50 mg tablet 50 mg PO BID@,18 RF: 0 lactulose 10 gram/15 mL solution 15 ml PO TID PRN (Reason: Constipation) RF: 0 triamcinolone acetonide 0.1 % cream 1 applic TOPICAL BID PRN (Reason: unknown) RF: 0 furosemide 40 mg tablet 40 mg PO BIDWM Qty: 0 RF: 0 prednisone 20 mg Tablet 40 mg PO DAILY RF: 0 cefdinir 300 mg Capsule 300 mg PO BID RF: 0 Discharge Orders: Discharge ED (Routine); Ordered 04/09/21 Ordered By: Priya Grullon Referrals: Randolph Carlson MD [Primary Care Provider] - 1-3 days Discharge Diet: Advance as tolerated Discharge Activity: Resume usual activity Patient Instructions: Acute Bronchitis (ED) Coding Level of Care Code ED Dairy Quality Assurance Officer for Juan Fwd Exam Comprehensive
[2021-04-08 23:34] LABS: INR 1.09 (0.8-1.2)
[2021-04-08 23:37] LABS: D Dimer 3.15 ug/mIFEU (0-0.59)
--- NOTE | 2021-04-08 23:39 | CTR_ITS ---
PROCEDURE INFORMATION: Exam: CTA Chest With Contrast Exam date and time: 04/08/2021 11:39 PM Age: 76 years old Clinical indication: Abnormal findings; Abnormal diagnostic tests; Elevated d-dimer; Shortness of breath; Patient HX: HX of prostate and bladder cancer. Hip FX on 03/29/21; Additional info: SOB TECHNIQUE: Imaging protocol: Computed tomographic angiography of the chest with contrast. 3D rendering (Not supervised by radiologist): MIP and/or 3D reconstructed images were created by the technologist. Radiation optimization: All CT scans at this facility use at least one of these dose optimization techniques: automated exposure control; mA and/or kV adjustment per patient size (includes targeted exams where dose is matched to clinical indication); or iterative reconstruction. Contrast material: OMNI 350; Contrast volume: 73 ml; Contrast route: INTRAVENOUS (IV); COMPARISON: CT angio chest PE protcl [id number] 06/02/2020 11:24 AM RADIATION DOSE METRICS: Total DLP (mGy-cm): 599.47 FINDINGS: Pulmonary arteries: Normal. No pulmonary emboli. Aorta: There are atherosclerotic changes of the aortic arch and descending thoracic aorta. There is no thoracic aortic aneurysm or dissection. Lungs: There are calcified granulomas in the right lung. There are areas of linear atelectasis at both lung bases and some wedge-shaped areas of consolidation and atelectasis bilaterally but more on the right than on the left. Superimposed pneumonia not entirely excluded. There is some bronchial wall thickening and some mucous plugging in some bronchi in the medial right lung base. Pleural spaces: Unremarkable. No pneumothorax. No pleural effusion. Heart: See Lymph nodes finding. Lymph nodes: There is a single prevascular lymph node measuring approximately 17 mm in diameter. There are AP window lymph nodes measuring up to 12 x 16 mm. These are not significantly changed from previous. Bones/joints: There are old healed fractures of multiple anterior right ribs. Soft tissues: Unremarkable. CT/CT angio chest PE protcl [id number] IMPRESSION: 1. No evidence of pulmonary embolism. 2. Mild adenopathy not significantly changed. 3. Areas of basilar atelectasis and consolidation. 4. Possible developing pneumonia at the right lung base. Clinical correlation follow-up suggested. Radiation Dose CTDIVOL = (mGy): DLP = 599.47 (mGy-cm)
[2021-04-08 23:41] LABS: Alanine Aminotransferase 25 U/L (0-41); Alkaline Phosphatase 200 IU/L (40-130); Anion Gap 11.8 (5-19); Aspartate Amino Transferase 16 U/L (0-40); Blood Urea Nitrogen 15 mg/dL (8-23); Calcium 9.2 mg/dL (8.5-10.5); Carbon Dioxide 32 mmol/L (22-29); Chloride 94 mmol/L (98-107); Globulin 2.4 g/dL (1.3-4.6); Glucose 106 mg/dL (65-115); Osmolality Calculated 279 mOsm/kg (285-295); Potassium 3.8 mmol/L (3.5-5.1); Sodium 134 mmol/L (136-145); Total Bilirubin 0.3 mg/dL (0.15-1.2); Total Protein 5.4 g/dL (6.6-8.7)
[2021-04-08] MEDS: iohexol 350 mg/mL 100 mL Btl IV (23:56)
[2021-04-09 00:01] VITALS: PULSE 110; RESP 18; O2SAT 95
[2021-04-09] MEDS: ipratropium-albuterol 3 mL Neb INHALATION (00:01)
[2021-04-09 00:06] VITALS: PULSE 106
[2021-04-09 00:18] VITALS: RESP 18
[2021-04-09] MEDS: HYDROmorphone 1 mg/mL INJ 1 mL 0.5 MG IVP (00:18)
[2021-04-09 00:37] LABS: SARS Covid-2 Antigen Negative (Negative)
[2021-04-09] MEDS: doxycycline 100 mg Tablet PO (02:22)
--- NOTE | 2021-04-09 04:11 | PC.NURSE ---
Pt. discharged , waiting on transport after 0700 to [facility].
--- NOTE | 2021-04-09 05:13 | PC.NURSE ---
Pt. resting in bed with no complaints at this time. Pt. has been discharged , but is waiting on transport.
--- NOTE | 2021-04-09 06:30 | PC.NURSE ---
Pt. resting in bed.I have pulled patient to the top of the bed. Pt. waiting on transfer service that will come after shift change.
== END 2021-04-09 08:05 | disposition home or self-care (01) ==
PROVIDERS: Emergency Provider Emergency Medicine; PCP Family Medicine
DX: J42 Unspecified chronic bronchitis (principal); J44.9 Chronic obstructive pulmonary disease, unspecified; Z87.891 Personal history of nicotine dependence; I50.9 Heart failure, unspecified; I48.91 Unspecified atrial fibrillation; Z79.01 Long term (current) use of anticoagulants; I10 Essential (primary) hypertension
CPT/HCPCS: 71045; 71275; 80053; 85025; 85378; 85610; 87426; 93005; 94640; 96374; 96375; 99284; 99291; J1170; J2930; J7611; Q9967

== ENCOUNTER 2021-04-29 00:59 | Emergency (ER) | payer MEDICARE, MEDICAID, SELFPAY ==
[2021-04-29] VITALS (36 sets, daily range): BP systolic 61–209; BP diastolic 43–98; PULSE 88–141; RESP 16–24; TEMP 37.3; O2SAT 87–99; BMI 32.5
[2021-04-29] MEDS: naloxone 0.4 mg/ml SDV IVP ×2 (01:11→01:50)
[2021-04-29 01:14] LABS: Glucose Point of Care 126 mg/dL (70-110)
[2021-04-29] MEDS: vecuronium 10 mg SDV 12 MG IVP (01:30)
--- NOTE | 2021-04-29 01:34 | CTR_ITS ---
PROCEDURE INFORMATION: Exam: CT Head Without Contrast Exam date and time: 04/29/2021 1:34 AM Age: 76 years old Clinical indication: Altered mental status/memory loss; Patient HX: AMS. Patient arrived to er in resp arrest. Patient intubated. TECHNIQUE: Imaging protocol: Computed tomography of the head without contrast. Radiation optimization: All CT scans at this facility use at least one of these dose optimization techniques: automated exposure control; mA and/or kV adjustment per patient size (includes targeted exams where dose is matched to clinical indication); or iterative reconstruction. COMPARISON: CT head wo con* [id number] 10/27/2019 1:41 PM RADIATION DOSE METRICS: Total DLP (mGy-cm): 630.1 FINDINGS: Brain: No acute intracranial hemorrhage or mass effect. There is mild decreased attenuation in the periventricular white matter, likely from microvascular disease. No definite acute infarct by CT. MRI could be more sensitive/specific for detection, as clinically directed. Cerebral ventricles: Ventricle size is normal for age. Paranasal sinuses: Moderate mucosal thickening in the ethmoid sinuses. Minimal mucosal thickening/fluid in the sphenoid and maxillary sinuses. Mastoid air cells: No significant acute finding. Orbital cavity: The globe in the right orbit is misshapen and small, no significant change. Vasculature: Vascular calcifications in the internal carotid and vertebral basilar systems. Bones/joints: No definite acute skull fracture. CT/CT head wo con* [id number] IMPRESSION: 1. No acute intracranial hemorrhage or mass effect. 2. Changes of microvascular disease. 3. No definite acute infarct by CT, see above. 4. Other findings discussed above. Radiation Dose CTDIVOL = (mGy): DLP = 630.1 (mGy-cm)
[2021-04-29] MEDS: fentaNYL 50 mcg/mL INJ 2mL 150 MCG IVP (01:35)
--- NOTE | 2021-04-29 01:36 | XRR_ITS ---
PROCEDURE INFORMATION: Exam: XR Chest Exam date and time: 04/29/2021 1:36 AM Age: 76 years old Clinical indication: Dyspnea; Patient HX: Resp arrest upon er arrival. Check S/P intubation. ; Additional info: Post-intubation TECHNIQUE: Imaging protocol: XR of the chest. Views: 1 view. COMPARISON: CR (CHEST, ) 04/08/2021 11:15 PM FINDINGS: Tubes, catheters and devices: Endotracheal tube 6 cm above liyah. Lungs: Coarse reticular interstitial lung changes. No airspace consolidation. Pleural spaces: Unremarkable. No pleural effusion. No pneumothorax. Heart/Mediastinum: Unremarkable. No cardiomegaly. Bones/joints: Unremarkable. XR/XR chest 1V portable [id number] IMPRESSION: Satisfactory endotracheal tube position. Radiation Dose CTDIVOL = (mGy): DLP = (mGy-cm)
[2021-04-29 01:48] LABS: Basophils # 0.1 10^3/uL (0.0-0.1); Basophils % 0.6 %; Eosinophils # 0.2 10^3/uL (0.0-0.8); Eosinophils % 2.2 %; Hematocrit 42.7 % (42.0-52.0); Hemoglobin 13.2 g/dL (11.7-16.6); Lymphocytes % 19.1 %; Mean Corpuscular HGB Conc 30.9 g/dL (30.0-36.0); Mean Corpuscular Hemoglobin 30.1 pg (28.0-34.0); Mean Corpuscular Volume 97.3 fl (80-94); Mean Platelet Volume 9.6 fL (7.4-10.4); Monocytes # 0.9 10^3/uL (0.2-0.9); Monocytes % 8.4 %; Neutrophils # 7.12 10^3/uL (1.8-7.7); Neutrophils % 68.6 %; Nucleated Red Blood Cells % 0 %; Platelet Count 320 10^3/cmm (130-400); Red Blood Count 4.39 10^6/uL (4.1-5.3); Red Cell Distribution Width 14.2 % (12.1-15.1); White Blood Count 10.4 10^3/uL (4.0-10.0)
--- NOTE | 2021-04-29 01:54 | ED_ITS ---
HPI - General Adult General: Chief complaint: Altered Mental Status Stated complaint: RESP. DISTRESS Time Seen by Provider: 04/29/21 01:33 History of Present Illness: HPI narrative: CC: AMS HPI: [76]yo patient w/ full code COPD, chronic indwelling catheter BIBA for altered mental status and hypxoemia. intermediate, patient has a chronic indwelling Leblanc was complaining of Leblanc pain yesterday. This morning, nursing staff noted the patient was confused and obtunded. En route, POC glucose of 123. Endtital of 60-70. On arrival, patient is noted to be obtunded and somnolent occasionally agitated, patient is noted to have a poor respiratory effort. Onset: Unknown Duration: ongoing, unclear duration Location: [facility] Severity: severe Review of Systems Narrative: REVIEW OF SYSTEMS unable to obtain due to current cognitive status PFSH ED PFSH: Medical History Anxiety and depression Atrial fibrillation Atrial fibrillation Atrial fibrillation with RVR Bladder cancer CHF exacerbation Chronic anticoagulation COPD (chronic obstructive pulmonary disease) COPD (chronic obstructive pulmonary disease) Cystitis cystica Genital lesion, male History of prostate cancer Hyperlipidemia Hypertension Iron deficiency anemia Left atrial enlargement 4.9 cm width Mitral regurgitation Obstructive sleep apnea Peripheral vascular disease of extremity Renal calculi Surgical History H/O esophagogastroduodenoscopy H/O eye surgery H/O eye surgery detached retina left eye History of colonoscopy (~2004) History of laparotomy History of lithotripsy History of ureter stent Family History Mother , at age 94 Hypertension Heart disease Father , at age 72 Renal disease Heart disease Brother Heart disease Other CAD (coronary artery disease) Cancer Denies family history of Anesthesia complication Bleeding disorder Social History Smoking and tobacco status: current every day smoker Quit status (tobacco): has quit using tobacco Year quit tobacco: 2019 - 1PPD x 50 Years Second hand smoke exposure: Yes Smoking risk assessment/counseling performed?: No Alcohol intake: current Alcohol intake frequency: 3 or more drinks per day Alcohol type: hard liquor Desire information about alcohol rehabilitation?: No Counseling given: Yes Counseling given: No Adopted: No Caregiver/support person: No Lives independently: Yes Household members: none Marital status: Single Current occupational status: retired History of recent travel: No Current gender identity: Male Physical Exam Narrative: EXAM NARRATIVE: Head: Atraumatic Eyes: PERRL, +R eye glaucoma, +L eye pinpoint ENT: Dry membrane membrane NECK: Supple without lymphadenopathy LUNGS: Poor air movement, CV: RRR ABDOMEN: Soft, nontender EXTREMITY: Normal ROM SKIN: No rash or erythema, no signs of track chong, no visible patches, no noticeable cellulitis NEURO: Somnolent but occasionally arousable, moving all extremities PSYCH: Somnolent unable to fully assess at this time Procedures Intubation Time out performed: Yes sedative: Etomidate Mg Given: 40 paralytic: Vecuronium Mg Given: 12 Laryngoscope: Lea ET Tube Size: 7.5 ET Tube Uncuffed: Yes Tube Secured Depth (cm): 23 Tube Secured Location: lips Tube Placement Confirmation: visualized tube passing through cords, equal breath sounds bilaterally, no breath sounds over epigastrium and confirmation by capnometry Patient Tolerated Procedure: well Intubation Complications: none Course Vital Signs: Vital signs: Vital Signs Temperature 99.1 F 04/29/21 01:05 Pulse Rate 104 H 04/29/21 03:10 Respiratory Rate 18 04/29/21 03:10 Blood Pressure 61/43 04/29/21 03:10 Pulse Oximetry 97 04/29/21 03:10 MDM - General Adult MDM Narrative: Medical decision making narrative: [76]yo patient w/ hx of COPD, indwelling leblanc BIBA for AMS, unclear last seen normal. Obtunded with +Slurred, sluggish behavior. On arrival, patient was satting at 78% on room air that improved to over 95% on high flow. Patient did not respond to multiple doses of Narcan (total 2.4mg). Decision was made to intubate shortly after arrival for fluctuating mental status, mixed respiratory failure, and psosible septic shock. ABG was performed which showed a pH of 7.24, PCO2 of 80. Patient not respond to multiple doses of Narcan. Decision was made to intubate shortly after arrival. DDx broad including intracranial injuries, metabolic phenomenon, substance intoxication/withdrawal, and sepsis. Patient is started on vancomycin and cefepime. S/p 2L of NS. Will hold on full 30cc/kg per sepsis procotcol given age, Workup: CBC, CMP, acetaminophen level, salicylate level, VBG, CK, UA, ECG, UA/UDS, CT brain, XR Chest Intervention: ABX, sedation (propafol and fentanyl ggt), duo-neb, methylprednisone WBC of 10.4, pCO2 improved from 84 to 76 post intubation. No signs of PNA on XR chest. UA is consistent with UTI. Given indwelling leblanc, will treat as complicated UTI. Present time, we do not have any ICU bed. I have discussed case with Dr. Burton, who tells me that she is unable to manage this patient given the bed situation. Case was discussed with Dr. Eastman who agrees with transfer to [facility] Disposition: Transfer Lab Data: Labs: Lab Results 04/29/21 04/29/21 04/29/21 01:08 01:09 01:09 WBC 10.4 10^3/uL H 10 ^3/uL (4.0-10.0) RBC 4.39 10^6/uL 10^6 /uL (4.1-5.3) Hgb 13.2 g/dL g/dL (11.7-16.6) Hct 42.7 % % (42.0-52.0) MCV 97.3 fl H fl (80-94) MCH 30.1 pg pg (28.0-34.0) MCHC 30.9 g/dL g/dL (30.0-36.0) RDW 14.2 % % (12.1-15.1) Plt Count 320 10^3/cmm 10^3 /cmm (130-400) MPV 9.6 fL fL (7.4-10.4) Neut % (Auto) 68.6 % % Lymph % (Auto) 19.1 % % [place] % (Auto) 8.4 % % Eos % (Auto) 2.2 % % Baso % (Auto) 0.6 % % Neut # (Auto) 7.12 10^3/uL 10^3 /uL (1.8-7.7) Lymph # (Auto) 2.0 10^3/uL 10^3/ uL (0.8-4.8) [place] # (Auto) 0.9 10^3/uL 10^3/ uL (0.2-0.9) Eos # (Auto) 0.2 10^3/uL 10^3/ uL (0.0-0.8) Baso # (Auto) 0.1 10^3/uL 10^3/ uL (0.0-0.1) Nucleated RBC % (a uto) 0 % % Nucleated RBCs # 0.0 /100WBC /100W BC PT 15.60 SECONDS H S ECONDS (12.1-14.9) INR 1.21 H (0.8-1.2) APTT 32.8 SECONDS SECO NDS (23.9-36.7) Specimen Type Sample Site ABG pH ABG pCO2 ABG pO2 ABG HCO3 ABG Base Excess Ancelmo Test Hematocrit O2 Delivery Device Mechanical Rate FiO2 PEEP [employer]ist ID Sodium Potassium Chloride Carbon Dioxide Anion Gap BUN Creatinine GFR Calculation Glucose POC Glucose 126 mg/dL H mg/dL (70-110) Calculated Osmolal ity Lactate Calcium Total Bilirubin AST ALT Alkaline Phosphata se Total Protein Albumin Globulin Lipase Urine Color Urine Appearance Urine pH Ur Specific Gravit y Urine Protein Urine Glucose (UA) Urine Ketones Urine Blood Urine Nitrate Urine Bilirubin Urine Urobilinogen Ur Leukocyte Debora ase Urine RBC Urine WBC Ur Squamous Epith Cells Amorphous Sediment Urine Bacteria SARS-CoV-2 Ag (Rap id) 04/29/21 04/29/21 04/29/21 01:09 01:09 01:59 WBC RBC Hgb Hct MCV MCH MCHC RDW Plt Count MPV Neut % (Auto) Lymph % (Auto) [place] % (Auto) Eos % (Auto) Baso % (Auto) Neut # (Auto) Lymph # (Auto) [place] # (Auto) Eos # (Auto) Baso # (Auto) Nucleated RBC % (a uto) Nucleated RBCs # PT INR APTT Specimen Type Sample Site ABG pH ABG pCO2 ABG pO2 ABG HCO3 ABG Base Excess Ancelmo Test Hematocrit O2 Delivery Device Mechanical Rate FiO2 PEEP [employer] Specialist ID Sodium 139 mmol/L mmol/L (136-145) Potassium 4.3 mmol/L mmol/L (3.5-5.1) Chloride 100 mmol/L mmol/L (98-107) Carbon Dioxide 30 mmol/L H mmol/ L (22-29) Anion Gap 13.3 (5-19) BUN 13 mg/dL mg/dL (8-23) Creatinine 0.8 mg/dL mg/dL (0.7-1.2) GFR Calculation Not Reportable Glucose 129 mg/dL H mg/dL (65-115) POC Glucose Calculated Osmolal ity 290 mOsm/kg mOsm/ kg (285-295) Lactate 0.8 mmol/L mmol/L (0.5-2.2) Calcium 8.3 mg/dL L mg/dL (8.5-10.5) Total Bilirubin 0.2 mg/dL mg/dL (0.15-1.2) AST 10 U/L U/L (0-40) ALT < 5 U/L U/L (0-41) Alkaline Phosphata se 284 IU/L H IU/L (40-130) Total Protein 6.2 g/dL L g/dL (6.6-8.7) Albumin 3.4 g/dL L g/dL (3.5-5.2) Globulin 2.8 g/dL g/dL (1.3-4.6) Lipase 15 U/L U/L (13-60) Urine Color Yellow (Yellow) Urine Appearance Cloudy (CLEAR) Urine pH 5 (5-7) Ur Specific Gravit y 1.020 (1.005-1.030) Urine Protein 3+ H (Negative) Urine Glucose (UA) Norm (Normal) Urine Ketones Negative (Negative) Urine Blood 3+ H (Negative) Urine Nitrate Negative (Negative) Urine Bilirubin Neg (Negative) Urine Urobilinogen Neg mg/dL mg/dL (Negative) Ur Leukocyte Debora ase 2+ H (Negative) Urine RBC Too numerous to c nt /hpf H /hpf (0-2) Urine WBC Too numerous to c nt /hpf H /hpf (0-5) Ur Squamous Epith Cells 0-4 /hpf H /hpf (0-5) Amorphous Sediment Not Reportable Urine Bacteria 1+ /hpf H /hpf (NONE) SARS-CoV-2 Ag (Rap id) 04/29/21 04/29/21 02:08 02:36 WBC RBC Hgb Hct MCV MCH MCHC RDW Plt Count MPV Neut % (Auto) Lymph % (Auto) [place] % (Auto) Eos % (Auto) Baso % (Auto) Neut # (Auto) Lymph # (Auto) [place] # (Auto) Eos # (Auto) Baso # (Auto) Nucleated RBC % (a uto) Nucleated RBCs # PT INR APTT Specimen Type Arterial Sample Site Radial, right ABG pH 7.29 L (7.35-7.45) ABG pCO2 75.6 mmHg H* mmHg (35-45) ABG pO2 178.0 mmHg H mmHg (80.0-100.0) ABG HCO3 36.5 mmol/L H mmo l/L (22-26) ABG Base Excess 6.8 mmol/L H mmol /L (-2.0-2.0) Ancelmo Test Pos Hematocrit 45.2 % % (42-52) O2 Delivery Device Vent Mechanical Rate 16.0 FiO2 100.0 % % PEEP 6.0 cmH20 cmH20 [employer]ist ID [id number] Sodium Potassium Chloride Carbon Dioxide Anion Gap BUN Creatinine GFR Calculation Glucose POC Glucose Calculated Osmolal ity Lactate Calcium Total Bilirubin AST ALT Alkaline Phosphata se Total Protein Albumin Globulin Lipase Urine Color Urine Appearance Urine pH Ur Specific Gravit y Urine Protein Urine Glucose (UA) Urine Ketones Urine Blood Urine Nitrate Urine Bilirubin Urine Urobilinogen Ur Leukocyte Debora ase Urine RBC Urine WBC Ur Squamous Epith Cells Amorphous Sediment Urine Bacteria SARS-CoV-2 Ag (Rap id) Negative (Negative) Imaging Data^: Other Imaging: Radiologist's impression: [address] [id number] ReportSigned Patient: Damien Stringer #: [id number]: 6Acct#:[id number]/Sex: 76 / MADM Date: 04/29/21Loc: ERRoom/Bed:Attending Dr: Ordering Provider/Ordering MD: Lissett Moreau MD Date of Service: 04/29/21 Procedure(s): XR chest 1V portable [id number] Accession Number(s): [id number] Report Number: [id number] PROCEDURE INFORMATION: Exam: XR Chest Exam date and time: 04/29/2021 1:36 AM Age: 76 years old Clinical indication: Dyspnea; Patient HX: Resp arrest upon er arrival. Check S/P intubation. ; Additional info: Post-intubation TECHNIQUE: Imaging protocol: XR of the chest. Views: 1 view. COMPARISON: CR (CHEST, ) 04/08/2021 11:15 PM FINDINGS: Tubes, catheters and devices: Endotracheal tube 6 cm above liyah. Lungs: Coarse reticular interstitial lung changes. No airspace consolidation. Pleural spaces: Unremarkable. No pleural effusion. No pneumothorax. Heart/Mediastinum: Unremarkable. No cardiomegaly. Bones/joints: Unremarkable. XR/XR chest 1V portable [id number] IMPRESSION: Satisfactory endotracheal tube position. Radiation Dose CTDIVOL = (mGy): DLP = (mGy-cm) Dictated By:Иван Lam By:Иван Lam Date/Time:04/29/21 0226DD/ 0136 Critical Care Time Critical Care Time: Critical Care Time: Yes Total Critical Care Time: 45 Attestation: Given the high probability of imminent or life threatening deterioration of the patient?s condition without intervention, the patient was immediately assessed by myself and the nurse, and cardiac monitoring initiated. The patient was also placed on oxygen and continuous pulse oximetry initiated. During the course of the patient?s stay, I spent a considerable amount of time at the bedside performing serial re-evaluations of the patient?s hemodynamic and clinical status because of the recognized potential threat to life or limb in this condition. Clinical management of this patient involved high complexity decision making to assess, manipulate, and support vital organ system failure. I then had a chance to review all of the available laboratory and radiographic studies obtained today, and I also reviewed old records available to me at the time. Sequential vital signs were obtained. Critical care time noted below was time spent engaged in work directly related to the individual patient?s care, not including time performing procedures; however it does include time spent at the immediate bedside or elsewhere on the floor or unit. TOTAL CRITICAL CARE TIME ELAPSED: 45. BODY SYSTEM AT HIGHEST RISK: Pulmonary Discharge Plan Discharge Patient Disposition: Transfer to ED Clinical Impression: Altered mental status, Hypercapnic respiratory failure, COPD exacerbation, Acute UTI Condition: Stable Prescriptions: No Action ascorbate calcium (vitamin C) 500 mg tablet 1,000 mg PO BID@ RF: 0 albuterol sulfate 2.5 mg /3 mL (0.083 %) solution for nebulization 2.5 mg inhalation Q6H PRN (Reason: Shortness Of Breath) RF: 0 hydrocodone-acetaminophen 10-325 mg tablet 1 tab PO Q6H PRN (Reason: pain) 30 Days Qty: 60 RF: 0 doxycycline hyclate 100 mg tablet 100 mg PO BID RF: 0 amitriptyline 10 mg tablet 10 mg PO BEDTIME RF: 0 lisinopril 2.5 mg tablet 2.5 mg PO DAILY RF: 0 ropinirole 3 mg Tablet 3 mg PO DAILY@19 RF: 0 mirtazapine 30 mg Tablet 30 mg PO DAILY@18 RF: 0 ferrous sulfate [iron] 325 mg (65 mg iron) Tablet 325 mg PO DAILY RF: 0 thiamine mononitrate (vit B1) [Vitamin B-1 (mononitrate)] 100 mg tablet 100 mg PO DAILY@06 RF: 0 fluticasone propion-salmeterol [Advair Diskus] 250-50 mcg/dose blister with device 1 puff inhalation BID@0600,1800 RF: 0 potassium chloride 10 mEq tablet,ER particles/crystals 10 meq PO BID RF: 0 isosorbide mononitrate 20 mg tablet 20 mg PO BID RF: 0 tamsulosin [Flomax] 0.4 mg capsule 0.4 mg PO DAILY@06 RF: 0 fluticasone propionate [Flonase Allergy Relief] 50 mcg/actuation spray,suspension 1 spray INTRANASAL BID PRN (Reason: Allergy Symptoms) RF: 0 Spiriva Respimat 2.5 mcg/actuation mist 1 puff INHALATION BID@0600,1800 RF: 0 Eliquis 5 mg tablet 5 mg PO BID@,18 RF: 0 Hold Instructions: Resume on 04/27/20. methenamine hippurate 1 gram Tablet 1 g PO BID@,18 RF: 0 buspirone 15 mg Tablet 15 mg PO BID@18 RF: 0 folic acid 1 mg Tablet 1 mg PO DAILY Qty: 30 RF: 0 metoprolol tartrate 50 mg tablet 50 mg PO BID RF: 0 diltiazem HCl [DILT-XR] 240 mg capsule,ext.rel 24h degradable 240 mg PO DAILY RF: 0 pravastatin 40 mg tablet 40 mg PO QPM RF: 0 cilostazol 50 mg tablet 50 mg PO BID@,18 RF: 0 lactulose 10 gram/15 mL solution 15 ml PO TID PRN (Reason: Constipation) RF: 0 triamcinolone acetonide 0.1 % cream 1 applic TOPICAL BID PRN (Reason: unknown) RF: 0 furosemide 40 mg tablet 40 mg PO BIDWM Qty: 0 RF: 0 Coding Level of Care Code ED Resin Coater for Juan Delarosa
[2021-04-29] MEDS: naloxone 0.4 mg/ml SDV 2 MG IVP (01:55)
[2021-04-29 01:57] LABS: INR 1.21 (0.8-1.2)
[2021-04-29 01:58] LABS: Partial Thromboplastin Time 32.8 SECONDS (23.9-36.7)
[2021-04-29 02:07] LABS: Alanine Aminotransferase < 5 U/L (0-41); Albumin Level 3.4 g/dL (3.5-5.2); Alkaline Phosphatase 284 IU/L (40-130); Anion Gap 13.3 (5-19); Aspartate Amino Transferase 10 U/L (0-40); Blood Urea Nitrogen 13 mg/dL (8-23); Calcium 8.3 mg/dL (8.5-10.5); Carbon Dioxide 30 mmol/L (22-29); Chloride 100 mmol/L (98-107); Globulin 2.8 g/dL (1.3-4.6); Glucose 129 mg/dL (65-115); Lipase 15 U/L (13-60); Osmolality Calculated 290 mOsm/kg (285-295); Potassium 4.3 mmol/L (3.5-5.1); Sodium 139 mmol/L (136-145); Total Bilirubin 0.2 mg/dL (0.15-1.2); Total Protein 6.2 g/dL (6.6-8.7)
[2021-04-29 02:11] LABS: Lactate (Lactic Acid level) 0.8 mmol/L (0.5-2.2)
[2021-04-29] MEDS: ipratropium-albuterol 3 mL Neb INHALATION ×3 (02:26→02:27)
[2021-04-29 02:27] LABS: Bilirubin Urine Neg (Negative); Blood Urine 3+ (Negative); Glucose Urine UA Norm (Normal); Ketones Urine Negative (Negative); Nitrate Urine Negative (Negative); Protein Urine 3+ (Negative); Urine Appearance Cloudy (CLEAR); Urine Color Yellow (Yellow); Urobilinogen Urine Neg (Negative); pH Urine 5 (5-7)
[2021-04-29 02:28] LABS: Add Urine Microscopic? YES; Leukocyte Esterase Urine 2+ (Negative)
[2021-04-29 02:29] LABS: Add Urine Culture? Yes; Bacteria Urine 1+ /hpf; RBC Urine TOO NUMEROUS TO CNT /hpf (0-2); Squamous Epithelial Cell Urine 0-4 /hpf (0-5); WBC Urine TOO NUMEROUS TO CNT /hpf (0-5)
--- NOTE | 2021-04-29 02:33 | XRR_ITS ---
PROCEDURE INFORMATION: Exam: XR Chest Exam date and time: 04/29/2021 2:33 AM Age: 76 years old Clinical indication: Device placement; Ng tube; Patient HX: Check for og placement; Additional info: Verify og placement TECHNIQUE: Imaging protocol: XR of the chest. Views: 1 view. COMPARISON: CR XR chest 1V portable [id number] 04/29/2021 1:37 AM FINDINGS: Tubes, catheters and devices: Stable endotracheal tube. Enteric tube tip is over the antrum of the stomach (distal stomach). Lungs: Mild left basilar atelectasis and/or pneumonia. Pleural spaces: Unremarkable. No pleural effusion. No pneumothorax. Heart/Mediastinum: Unremarkable. No cardiomegaly. Vasculature: Calcification of the thoracic aorta and/or great vessels consistent with atherosclerotic vessel disease. Bones/joints: Metallic fixation of healed left humeral fracture. Other findings: Postoperative changes over the left shoulder. XR/XR chest 1V portable [id number] IMPRESSION: 1. Stable endotracheal tube. 2. Enteric tube tip is over the antrum of the stomach (distal stomach). 3. Mild left basilar atelectasis and/or pneumonia. Radiation Dose CTDIVOL = (mGy): DLP = (mGy-cm)
[2021-04-29 02:40] LABS: SARS Covid-2 Antigen Negative (Negative)
[2021-04-29 02:47] LABS: ABG PH Result 7.29 (7.35-7.45); Arterial Blood Gas Hematocrit 45.2 % (42-52); Base Excess ABG 6.8 mmol/L (-2.0-2.0); Blood Gas Allen Test Pos; Blood Gas Sample Site Radial, right; Blood Gas Sample Type Arterial; HCO3 ABG 36.5 mmol/L (22-26); Oxygen Device VENT
[2021-04-29 02:50] LABS: ABG PCO2 75.6 mmHg (35-45)
[2021-04-29] MEDS: propofol 1,000 MG/100 ML INJ 14.59 MG IV (03:05)
[2021-04-29] MEDS: sodium chloride 0.9% 1,000 ML 999 ML IV (03:09)
--- NOTE | 2021-04-29 03:14 | ECG_ITS ---
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 Measurements Intervals [place] Rate: 120 P: [place]: QRS: 16 QRSD: 79 T: 63 QT: 269 QTc: 380 Interpretive Statements ATRIAL FIBRILLATION WITH RAPID VENTRICULAR RESPONSE LOW QRS VOLTAGE IN EXTREMITY LEADS [QRS DEFLECTION < 0.5 mV IN LIMB LEADS] SEPTAL MYOCARDIAL INFARCTION , OF INDETERMINATE AGE [40+ ms Q WAVE IN V1/V2] Compared to ECG 04/08/2021 23:32:59 Low QRS voltage now present Myocardial infarct finding now present Aberrant conduction of supraventricular beat(s) no longer present Ventricular premature complex(es) no longer present Electronically Signed On 04-30-2021 16:14:40 BURRER HAND by Marita Ansari M.D. [id number]
[2021-04-29] MEDS: succinylcholine 20 mg/mL SDV 10mL 100 MG IV (04:39)
[2021-04-29 04:48] LABS: ABG PCO2 89.8 mmHg (35-45); ABG PH Result 7.24 (7.35-7.45); Base Excess ABG 7.4 mmol/L (-2.0-2.0); HCO3 ABG 38.4 mmol/L (22-26); Oxygen Saturation ABG 90.1; PO2 ABG 65.3 mmHg (80.0-100.0); Potassium Level - ABG 4.4 mmol/L (3.5-5.0)
[2021-04-29 04:49] LABS: Arterial Blood Gas Hematocrit 43.1 % (42-52); Blood Gas Allen Test POS; Blood Gas Operator Identificat BISJE; Blood Gas Sample Site RIGHT RAD; Blood Gas Sample Type ARTERIAL; Oxygen Device NRB
[2021-04-29 04:50] LABS: HGB O2 Sat 87.3 % (95-100); Ionized Calcium Level - ABG 1.2 mmol/L (1.1-1.4); Total Hemoglobin 14.1 g/dL (14-18)
[2021-04-29] MEDS: cefepime 1,000 MG in sodium chloride 0.9% (plus) 50 ML 100 MG IV (04:50)
[2021-04-29] MEDS: vancomycin 1,000 MG in sodium chloride 0.9% 250 ML 250 MG IV (05:03)
[2021-04-29 14:50] LABS: Coronavirus Test Green County Not Detected
--- NOTE | 2021-04-30 04:27 | PC.NURSE ---
Pao Hendricks nurse Natalie notified of pt negative [place] PCR.
== END 2021-04-29 05:43 ==
PROVIDERS: Emergency Provider Emergency Medicine
DX: R41.82 Altered mental status, unspecified (principal); J96.92 Respiratory failure, unspecified with hypercapnia; Z79.891 Long term (current) use of opiate analgesic; Z87.891 Personal history of nicotine dependence; J44.9 Chronic obstructive pulmonary disease, unspecified; I11.0 Hypertensive heart disease with heart failure; I50.9 Heart failure, unspecified; E78.5 Hyperlipidemia, unspecified
CPT/HCPCS: 31500; 36416; 36600; 51702; 70450; 71045; 80051; 80053; 81001; 82330; 82803; 82805; 82962; 83605; 83690; 85025; 85610; 85730; 87040; 87070; 87077; 87086; 87186; 87205; 87426; 87635; 93005; 94002; 94799; 96365; 96366; 96367; 96375; 99291; J0330; J0692; J2310; J2704; J2930; J3010; J3370; J3490; J7030; J7050

== ENCOUNTER 2021-05-12 10:16 | Emergency (ER) | payer MEDICARE, MEDICAID, SELFPAY ==
[2021-05-12] VITALS (11 sets, daily range): BP systolic 163–215; BP diastolic 91–129; PULSE 99–117; RESP 14–24; TEMP 37.1; O2SAT 90–97; BMI 29.2
--- NOTE | 2021-05-12 10:36 | XR_ITS ---
WS: [id number] Portable AP upright chest, 05/12/2021 Clinical Data: cough and congestion Comparison: Portable chest, 04/29/2021. Findings: There is bibasilar atelectasis unchanged. The heart is enlarged. The aortic arch shows calc ification and tortuosity. No pneumonia or pneumothorax is present. The pulmonary vascularity is not r emarkable. There is an orthopedic anchor in the left humeral head. XR/XR chest 1V portable [id number] Impression: 1. No change in bibasilar atelectasis. 2. Cardiomegaly and atherosclerosis.
--- NOTE | 2021-05-12 10:36 | ECG_ITS ---
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 Measurements Intervals [place] Rate: 104 P: [place]: QRS: 30 QRSD: 86 T: 69 QT: 311 QTc: 411 Interpretive Statements ATRIAL FIBRILLATION WITH RAPID VENTRICULAR RESPONSE SEPTAL MYOCARDIAL INFARCTION , PROBABLY OLD [40+ ms Q WAVE IN V1/V2] Compared to ECG 04/29/2021 01:16:02 No significant changes Electronically Signed On 05-12-2021 23:42:42 CHIEF COMMUNICATIONS OFFICER by Duy Yip M.D. [id number]
--- NOTE | 2021-05-12 10:54 | W.ED.SOB ---
HPI - SOB/Dyspnea General: Chief Complaint: Shortness of Breath/Dyspnea Stated Complaint: SOB/ABD pain Time Seen by Provider: 05/12/21 10:18 Source: patient, EMS and old records reviewed Mode of arrival: EMS Limitations: altered mental status History of Present Illness: HPI Narrative: 76-year-old male presents to emergency department from the residential facility chief complaint of progressive shortness of breath difficulty breathing vomiting as well as edema in his legs patient apparently was admitted to our facility and had to be transferred to [facility] due to respiratory concerns patient does appear to be a poor historian unknown in regards to when this had occurred patient reports that he believes he had sepsis due to urinary tract infection. He reports he has a chronic Mckeon placement he reports he has chronic swelling and edema on his legs reports no recent medication changes reporting per EMS the patient had low O2 sats prior to arrival which is normally on oxygen. Patient has maintained having a productive cough for the last 3 days and has been getting worse. MD elicited complaint: shortness of breath and cough Pertinent past history: COPD Onset (ago): day(s) (3) Context: recent illness Severity: moderate Relieving factors: oxygen and rest Associated symptoms: Reports abdominal pain, nausea and vomiting; Deny chest pain, extremity pain or palpitations Related Data: Home oxygen amount: 2 liters Review of Systems General: Reports: 10 or more systems reviewed and unremarkable except in HPI and below Const: Reports: fatigue Eyes: Denies: change in vision or blurry vision Card: Reports: edema and swelling of feet/ankles; Denies: chest pain or palpitations Resp: Reports: dyspnea, productive cough, wheezing and change in phlegm color GI: Reports: abdominal pain, nausea and vomiting : Denies: flank pain Musc: Denies: extremity pain or extremity swelling Skin/Breast: Denies: rash or pruritus Neuro: Denies: headache(s) Psych: Denies: anxiety or depression Geovanni/Lymph: Denies: easy bleeding All/Imm: Denies: urticaria, throat swelling or facial swelling PFSH ED PFSH: Medical History Anxiety and depression Atrial fibrillation Atrial fibrillation Atrial fibrillation with RVR Bladder cancer CHF exacerbation Chronic anticoagulation COPD (chronic obstructive pulmonary disease) COPD (chronic obstructive pulmonary disease) Cystitis cystica Genital lesion, male History of prostate cancer Hyperlipidemia Hypertension Iron deficiency anemia Left atrial enlargement 4.9 cm width Mitral regurgitation Obstructive sleep apnea Peripheral vascular disease of extremity Renal calculi Surgical History H/O esophagogastroduodenoscopy H/O eye surgery H/O eye surgery detached retina left eye History of colonoscopy (~2004) History of laparotomy History of lithotripsy History of ureter stent Family History Mother , at age 94 Hypertension Heart disease Father , at age 72 Renal disease Heart disease Brother Heart disease Other CAD (coronary artery disease) Cancer Denies family history of Anesthesia complication Bleeding disorder Social History Smoking and tobacco status: current every day smoker Quit status (tobacco): has quit using tobacco Year quit tobacco: 2020 - 1PPD x 50 Years Second hand smoke exposure: Yes Smoking risk assessment/counseling performed?: No Alcohol intake: current Alcohol intake frequency: 3 or more drinks per day Alcohol type: hard liquor Desire information about alcohol rehabilitation?: No Counseling given: Yes Counseling given: No Adopted: No Caregiver/support person: No Lives independently: Yes Household members: none Marital status: Single Current occupational status: retired History of recent travel: No Current gender identity: Male Physical Exam Narrative: EXAM NARRATIVE: Patient is some mild expiratory wheeze noted bilaterally mild tachypnea apparent however does not appear in any obvious respiratory distress Const: COMMON NORMALS: no acute distress, patient oriented x3 and healthy appearing HENMT: COMMON NORMALS: normocephalic and atraumatic HEAD & SCALP: normocephalic and atraumatic Eye: COMMON NORMALS: Equal, round and reactive pupils present and EOMs intact bilaterally PUPIL: Yes Equal, round and reactive pupils present Neck/C-Spine: COMMON NORMALS: full ROM, supple and no JVD Lymph: LYMPHATIC: no lymphadenopathy noted Chest: COMMONS NORMALS: normal inspection of the chest and normal palpation of entire chest wall Resp: COMMON NORMALS: normal respiratory effort, No retractions and clear to auscultation bilaterally EFFORT & INSPECTION: Yes able to speak in complete sentences and Yes symmetric chest movement AUSCULTATION: clear to auscultation bilaterally, crackles and wheezes Cardio: COMMON NORMALS: no JVD, regular rate and regular rhythm RATE: regular rate and tachycardic RHYTHM: regular rhythm GI: COMMON NORMALS: Normal to inspection, nondistended, normoactive bowel sounds present, Soft to palpation and non-tender INSPECTION: Yes normal to inspection PALPATION: Yes Soft to palpation : COMMON NORMALS: Yes no CVA tenderness BLADDER/KIDNEY EXAM: Yes no CVA tenderness Back/Pelvis: COMMON NORMALS: no CVA tenderness Extremity: COMMON NORMALS: normal to inspection and full ROM OTHER: Bilateral lower extremity edema appreciated exam Neuro: COMMON NORMALS: patient oriented x3, CN's II-XII intact bilaterally, moves all extremities and no focal motor deficits Psych: COMMON NORMALS: mental status grossly normal, Normal thought process present, cooperative and normal affect THOUGHT PROCESS: Normal thought process present Skin: COMMON NORMALS: no rashes or lesions noted GENERAL SKIN EXAM: no rashes or lesions noted Course ED course: Due to the patient's symptoms and condition lab work and imaging will be obtained we will continue to follow. Underlying concerns of pneumonia are prominent will attempt to look in the past medical records to see what he was originally transferred for. Vital Signs: Vital signs: Vital Signs Temperature 98.7 F 05/12/21 10:16 Pulse Rate 101 H 05/12/21 12:56 Respiratory Rate 20 H 05/12/21 12:56 Blood Pressure 163/129 05/12/21 11:35 Pulse Oximetry 95 05/12/21 12:56 MDM - SOB/Dyspnea MDM Narrative: Medical decision making narrative: Lab work and imaging revealed patient is a kidney stone left-hand side urinalysis did not reveal any obvious severe infection. Patient was started on some medications for his chronic heart failure as well as his kidney stone advised further follow-up with primary care for referral to urology if any of his symptoms persist or worsen he already is distally so he does the high likelihood of continued passage believe that his main reason was creating his belly pain as well as vomiting prior to arrival patient was advised further follow-up outpatient 2 to 3 days of which he was instructed to return the interim if any of his symptoms persist or worsen. Lab Data: Labs: Lab Results 05/12/21 05/12/21 05/12/21 11:03 11:14 11:14 WBC 15.1 10^3/uL H 10 ^3/uL (4.0-10.0) RBC 4.66 10^6/uL 10^6 /uL (4.1-5.3) Hgb 13.6 g/dL g/dL (11.7-16.6) Hct 45.5 % % (42.0-52.0) MCV 97.6 fl H fl (80-94) MCH 29.2 pg pg (28.0-34.0) MCHC 29.9 g/dL L g/dL (30.0-36.0) RDW 14.8 % % (12.1-15.1) Plt Count 272 10^3/cmm 10^3 /cmm (130-400) MPV 10.0 fL fL (7.4-10.4) Neut % (Auto) 81.4 % % Lymph % (Auto) 11.3 % % [place] % (Auto) 5.8 % % Eos % (Auto) 0.7 % % Baso % (Auto) 0.3 % % Neut # (Auto) 12.29 10^3/uL H 1 0^3/uL (1.8-7.7) Lymph # (Auto) 1.7 10^3/uL 10^3/ uL (0.8-4.8) [place] # (Auto) 0.9 10^3/uL 10^3/ uL (0.2-0.9) Eos # (Auto) 0.1 10^3/uL 10^3/ uL (0.0-0.8) Baso # (Auto) 0.1 10^3/uL 10^3/ uL (0.0-0.1) Nucleated RBC % (a uto) 0 % % Nucleated RBCs # 0.0 /100WBC /100W BC PT 13.50 SECONDS SEC ONDS (12.1-14.9) INR 1.00 (0.8-1.2) Specimen Type Sample Site ABG pH ABG pCO2 ABG pO2 ABG HCO3 ABG Base Excess [place] Test Hematocrit Hgb O2 Saturation Carboxyhemoglobin Methemoglobin Total Hemoglobin O2 Delivery Device O2 Liters/Min FiO2 Flame Cutting Machine Operator Helper ID Sodium Potassium Chloride Carbon Dioxide Anion Gap BUN Creatinine GFR Calculation Glucose POC Glucose 98 mg/dL mg/dL (70-110) Calculated Osmolal ity Lactic Acid Calcium Total Bilirubin AST ALT Alkaline Phosphata se Troponin T Baselin e Troponin T 120 Min [place] Troponin T NT-Pro-B Natriuret Pep Total Protein Albumin Globulin Lipase Urine Color Urine Appearance Urine pH Ur Specific Gravit y Urine Protein Urine Glucose (UA) Urine Ketones Urine Blood Urine Nitrate Urine Bilirubin Urine Urobilinogen Ur Leukocyte Debora ase Urine RBC Urine WBC Ur Squamous Epith Cells Ur Renal Epithelia l Cell Amorphous Sediment Urine Bacteria 05/12/21 05/12/21 05/12/21 11:14 11:14 11:14 WBC RBC Hgb Hct MCV MCH MCHC RDW Plt Count MPV Neut % (Auto) Lymph % (Auto) [place] % (Auto) Eos % (Auto) Baso % (Auto) Neut # (Auto) Lymph # (Auto) [place] # (Auto) Eos # (Auto) Baso # (Auto) Nucleated RBC % (a uto) Nucleated RBCs # PT INR Specimen Type Sample Site ABG pH ABG pCO2 ABG pO2 ABG HCO3 ABG Base Excess [place] Test Hematocrit Hgb O2 Saturation Carboxyhemoglobin Methemoglobin Total Hemoglobin O2 Delivery Device O2 Liters/Min FiO2 Flame Cutting Machine Operator Helper ID Sodium 140 mmol/L mmol/L (136-145) Potassium 4.6 mmol/L mmol/L (3.5-5.1) Chloride 98 mmol/L mmol/L (98-107) Carbon Dioxide 34 mmol/L H mmol/ L (22-29) Anion Gap 12.6 (5-19) BUN 17 mg/dL mg/dL (8-23) Creatinine 0.6 mg/dL L mg/dL (0.7-1.2) GFR Calculation Not Reportable Glucose 100 mg/dL mg/dL (65-115) POC Glucose Calculated Osmolal ity 292 mOsm/kg mOsm/ kg (285-295) Lactic Acid 0.9 mmol/L mmol/L (0.5-2.2) Calcium 8.8 mg/dL mg/dL (8.5-10.5) Total Bilirubin 0.3 mg/dL mg/dL (0.15-1.2) AST 10 U/L U/L (0-40) ALT 13 U/L U/L (0-41) Alkaline Phosphata se 145 IU/L H IU/L (40-130) Troponin T Baselin e 36 ng/L H ng/L (0-15) Troponin T 120 Min [place] Troponin T NT-Pro-B Natriuret Pep 896 pg/mL H pg/mL (0-450) Total Protein 5.3 g/dL L g/dL (6.6-8.7) Albumin 3.4 g/dL L g/dL (3.5-5.2) Globulin 1.9 g/dL g/dL (1.3-4.6) Lipase 17 U/L U/L (13-60) Urine Color Urine Appearance Urine pH Ur Specific Gravit y Urine Protein Urine Glucose (UA) Urine Ketones Urine Blood Urine Nitrate Urine Bilirubin Urine Urobilinogen Ur Leukocyte Debora ase Urine RBC Urine WBC Ur Squamous Epith Cells Ur Renal Epithelia l Cell Amorphous Sediment Urine Bacteria 05/12/21 05/12/21 05/12/21 11:39 13:25 15:00 WBC RBC Hgb Hct MCV MCH MCHC RDW Plt Count MPV Neut % (Auto) Lymph % (Auto) [place] % (Auto) Eos % (Auto) Baso % (Auto) Neut # (Auto) Lymph # (Auto) [place] # (Auto) Eos # (Auto) Baso # (Auto) Nucleated RBC % (a uto) Nucleated RBCs # PT INR Specimen Type Arterial Sample Site Radial, left ABG pH 7.34 L (7.35-7.45) ABG pCO2 74.6 mmHg H* mmHg (35-45) ABG pO2 86.4 mmHg mmHg (80.0-100.0) ABG HCO3 40.6 mmol/L H mmo l/L (22-26) ABG Base Excess 11.5 mmol/L H mmo l/L (-2.0-2.0) [place] Test Pos Hematocrit 42.3 % % (42-52) Hgb O2 Saturation 94.0 % L % (95-100) Carboxyhemoglobin 1.4 %THgb %THgb (0.4-20.1) Methemoglobin 1.0 % % (0.4-1.5) Total Hemoglobin 13.8 g/dL L g/dL (14-18) O2 Delivery Device Nc O2 Liters/Min 5.0 % % FiO2 40.0 % % Flame Cutting Machine Operator Helper ID Amh Sodium Potassium Chloride Carbon Dioxide Anion Gap BUN Creatinine GFR Calculation Glucose POC Glucose Calculated Osmolal ity Lactic Acid Calcium Total Bilirubin AST ALT Alkaline Phosphata se Troponin T Baselin e Troponin T 120 Min [place] 39.49 ng/L H ng/L (0-15) Delta Troponin T 3.49 ABS# ABS# (0-10) NT-Pro-B Natriuret Pep Total Protein Albumin Globulin Lipase Urine Color [place] (Yellow) Urine Appearance Cloudy (CLEAR) Urine pH 7 (5-7) Ur Specific Gravit y 1.010 (1.005-1.030) Urine Protein 1+ H (Negative) Urine Glucose (UA) Norm (Normal) Urine Ketones Negative (Negative) Urine Blood 3+ H (Negative) Urine Nitrate Negative (Negative) Urine Bilirubin Neg (Negative) Urine Urobilinogen Norm mg/dL mg/dL (Negative) Ur Leukocyte Debora ase 1+ H (Negative) Urine RBC Too numerous to c nt /hpf H /hpf (0-2) Urine WBC 5-10 /hpf H /hpf (0-5) Ur Squamous Epith Cells 5-10 /hpf H /hpf (0-5) Ur Renal Epithelia l Cell 5 /hpf /hpf Amorphous Sediment Not Reportable Urine Bacteria None /hpf /hpf (NONE) Discharge Plan Discharge Patient Disposition: Home Clinical Impression: Kidney stone, Nausea & vomiting, Congestive heart failure (CHF) Condition: Stable Prescriptions: New Zofran 4 mg tablet 4 mg PO Q6H PRN (Reason: nausea and vomiting) Qty: 20 RF: 0 Flomax 0.4 mg capsule 0.4 mg PO DAILY Qty: 5 RF: 0 hydrocodone-acetaminophen 5-325 mg tablet 1 tab PO Q8H PRN (Reason: pain) Qty: 15 RF: 0 Lasix 40 mg tablet 20 mg PO DAILY Qty: 7 RF: 0 No Action hydrocodone-acetaminophen 10-325 mg tablet 1 tab PO Q6H PRN (Reason: pain) 30 Days Qty: 60 RF: 0 mirtazapine 30 mg Tablet 30 mg PO BEDTIME@20 RF: 0 metoprolol tartrate 50 mg tablet 50 mg PO BID@08,20 RF: 0 Senna-S 8.6-50 mg Tablet 1 tab PO BID@08,20 RF: 0 cyanocobalamin (vitamin B-12) 1,000 mcg Tablet 1,000 mcg PO DAILY@08 RF: 0 lorazepam 0.5 mg Tablet 0.5 mg PO Q8H PRN (Reason: Anxiety) RF: 0 bisacodyl 10 mg Suppository 10 mg [place] DAILY PRN (Reason: Constipation) RF: 0 isosorbide dinitrate 20 mg tablet 20 mg PO TID@08,16,20 RF: 0 Miralax 17 gram/dose Powder 17 g PO BID@08,20 RF: 0 albuterol sulfate 90 mcg/actuation Hfa Aerosol Inhaler 2 puff INHALATION Q6H PRN (Reason: Shortness Of Breath) RF: 0 Florastor 250 mg Capsule 250 mg PO BID@08,20 RF: 0 Spiriva with HandiHaler 18 mcg Capsule, W/Inhalation Device 1 cap INHALATION DAILY@08 RF: 0 fluticasone furoate 27.5 mcg/actuation [place],Suspension 1 spray INTRANASAL DAILY@08 RF: 0 dutasteride-tamsulosin 0.5-0.4 mg Capsule, Er Multiphase 24 Hr 1 cap PO DAILY@08 RF: 0 Eliquis 5 mg tablet 5 mg PO BID@08,20 RF: 0 Discharge Orders: Discharge ED (Routine); Ordered 05/12/21 Ordered By: Avery Miller Discharge Diet: Advance as tolerated Patient Instructions: Congestive Heart Failure, Kidney Stones (ED), Acute Nausea and Vomiting (ED), Opioid Safety Activity Restrictions/Additional Instructions: Please follow-up with your primary care doctor in the next 2 to 3 days for further assessment measure of your kidney stone for potential need for referral it is already distally has a high likelihood of passing on its own he was started on additional medications for you associated symptoms of your congestion as well as your pain is advised to decrease her water consumption over the next several days to reduce likelihood of any kidney issues. Please take your medication as prescribed and return the interim if any of your symptoms persist or worse. Coding Level of Care Code ED Speech Therapist Early Intervention for Juan Fwd Exam Comprehensive
[2021-05-12 11:09] LABS: Glucose Point of Care 98 mg/dL (70-110)
[2021-05-12 11:34] LABS: Basophils # 0.1 10^3/uL (0.0-0.1); Basophils % 0.3 %; Eosinophils # 0.1 10^3/uL (0.0-0.8); Eosinophils % 0.7 %; Hematocrit 45.5 % (42.0-52.0); Hemoglobin 13.6 g/dL (11.7-16.6); Lymphocytes # 1.7 10^3/uL (0.8-4.8); Lymphocytes % 11.3 %; Mean Corpuscular HGB Conc 29.9 g/dL (30.0-36.0); Mean Corpuscular Hemoglobin 29.2 pg (28.0-34.0); Mean Corpuscular Volume 97.6 fl (80-94); Monocytes # 0.9 10^3/uL (0.2-0.9); Monocytes % 5.8 %; Neutrophils # 12.29 10^3/uL (1.8-7.7); Neutrophils % 81.4 %; Nucleated Red Blood Cells % 0 %; Platelet Count 272 10^3/cmm (130-400); Red Blood Count 4.66 10^6/uL (4.1-5.3); Red Cell Distribution Width 14.8 % (12.1-15.1); White Blood Count 15.1 10^3/uL (4.0-10.0)
[2021-05-12 11:51] LABS: ABG PH Result 7.34 (7.35-7.45); Arterial Blood Gas Hematocrit 42.3 % (42-52); Base Excess ABG 11.5 mmol/L (-2.0-2.0); Blood Gas Allen Test Pos; Blood Gas Operator Identificat AMH; Blood Gas Sample Site Radial, left; Blood Gas Sample Type Arterial; Carboxyhemoglobin 1.4 %THgb (0.4-20.1); HCO3 ABG 40.6 mmol/L (22-26); Oxygen Device NC; PO2 ABG 86.4 mmHg (80.0-100.0); Total Hemoglobin 13.8 g/dL (14-18)
[2021-05-12 11:54] LABS: Alanine Aminotransferase 13 U/L (0-41); Albumin Level 3.4 g/dL (3.5-5.2); Alkaline Phosphatase 145 IU/L (40-130); Anion Gap 12.6 (5-19); Aspartate Amino Transferase 10 U/L (0-40); Blood Urea Nitrogen 17 mg/dL (8-23); Calcium 8.8 mg/dL (8.5-10.5); Carbon Dioxide 34 mmol/L (22-29); Chloride 98 mmol/L (98-107); Globulin 1.9 g/dL (1.3-4.6); Glucose 100 mg/dL (65-115); Lipase 17 U/L (13-60); Osmolality Calculated 292 mOsm/kg (285-295); Potassium 4.6 mmol/L (3.5-5.1); Sodium 140 mmol/L (136-145); Total Bilirubin 0.3 mg/dL (0.15-1.2); Total Protein 5.3 g/dL (6.6-8.7)
[2021-05-12 11:55] LABS: Lactic Sepsis W/Reflex 0.9 mmol/L (0.5-2.2)
[2021-05-12 12:16] LABS: NT Pro B Type Natriuretic Pept 896 pg/mL (0-450)
[2021-05-12 12:18] LABS: Troponin(5th) Baseline 36 ng/L (0-15)
--- NOTE | 2021-05-12 12:38 | ECG_ITS ---
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 Measurements Intervals Bath Rate: 101 P: MA: QRS: 34 QRSD: 77 T: 68 QT: 325 QTc: 423 Interpretive Statements ATRIAL FIBRILLATION WITH RAPID VENTRICULAR RESPONSE SEPTAL MYOCARDIAL INFARCTION , PROBABLY OLD [40+ ms Q WAVE IN V1/V2] Compared to ECG 05/12/2021 11:00:24 No significant changes Electronically Signed On 05-12-2021 23:55:11 SHOOTER'S HELPER by Duy Yip M.D. [id number]
[2021-05-12] MEDS: ipratropium-albuterol 3 mL Neb INHALATION (12:48)
--- NOTE | 2021-05-12 13:05 | CT_ITS ---
WS: [id number] CT ABDOMEN PELVIS TECHNIQUE: Contrast-enhanced CT of the abdomen and pelvis with coronal and sagittal reformatted image s. CLINICAL INFORMATION: pain with vomiting COMPARISON: CT February and March 2021 DLP: 2028.[address] scans at [facility] use at least one of these dose optimization techniques: automated e xposure control; mA and/or kV adjustment per patient size (includes targeted exams where dose is matc hed to clinical indication); or iterative reconstruction. FINDINGS: Small right and tiny left pleural effusions. Patchy infiltrates/atelectasis in the lung bas es. Coronary calcification. Diffuse infiltration the liver. Stable right hepatic cavernous hemangioma s. Normal GE junction. Adrenal glands are normal. Bilateral renal cortical atrophy. No hydronephrosis . Mckeon catheter in place. Stable right renal cyst. Small calculus at the right UVJ with mild right ureterectasis. Calculus measures 3 mm. This is new fr om the prior study. Fatty atrophy of the pancreas. Normal caliber abdominal aorta. Aortic calcification. Normal appendix in the right lower quadrant. Numerous bilateral pelvic fractures and pubic rami fractures previously described. Right anterior michael tabular fracture. Bilateral sacral fractures involving the sacral ala. L5 transverse process fracture s. Interval development of some callus formation. CT/CT abdomen pelvis w con* [id number] IMPRESSION: 1. New 3 mm calculus at the right UVJ with mild right ureterectasis. This is n ew from previous. No significant hydronephrosis. 2. Small bilateral pleural effusions right greater than left with patchy infil trates/atelectasis right greater than left. This is similar to the CT chest Oct luna 2020. Pleural fluid appears slightly increased. 3. No other significant changes from previous. Notified Avery Miller at 05/12/2021 2:46 PM.
[2021-05-12] MEDS: iohexol 300 mg/mL 100 mL Btl IV (13:57)
[2021-05-12 14:19] LABS: ABG PCO2 74.6 mmHg (35-45)
[2021-05-12 14:19] LABS: Troponin 5 2HR 39.49 ng/L (0-15); Troponin 5 2HR Delta 3.49 ABS# (0-10)
[2021-05-12 15:50] LABS: Urine Appearance Cloudy (CLEAR); Urine Color Orange (Yellow)
[2021-05-12 15:51] LABS: Add Urine Microscopic? YES; Bilirubin Urine Neg (Negative); Blood Urine 3+ (Negative); Glucose Urine UA Norm (Normal); Ketones Urine Negative (Negative); Leukocyte Esterase Urine 1+ (Negative); Nitrate Urine Negative (Negative); Protein Urine 1+ (Negative); RBC Urine TOO NUMEROUS TO CNT /hpf (0-2); Renal Epithelial Cells Urine 5 /hpf; Urobilinogen Urine Norm (Negative); pH Urine 7 (5-7)
[2021-05-12 15:52] LABS: Add Urine Culture? No
[2021-05-12 17:58] LABS: Troponin 5 6HR 33.04 ng/L (0-15)
[2021-05-12 18:00] LABS: Troponin 5 6HR Delta -2.96 ng/L (0-12)
== END 2021-05-12 20:57 | disposition home or self-care (01) ==
PROVIDERS: Emergency Provider Emergency Medicine
DX: N20.0 Calculus of kidney (principal); R11.2 Nausea with vomiting, unspecified; I11.0 Hypertensive heart disease with heart failure; I50.9 Heart failure, unspecified; Z79.01 Long term (current) use of anticoagulants; Z85.51 Personal history of malignant neoplasm of bladder; J44.9 Chronic obstructive pulmonary disease, unspecified; Z85.46 Personal history of malignant neoplasm of prostate; E78.5 Hyperlipidemia, unspecified; Z87.442 Personal history of urinary calculi; F17.210 Nicotine dependence, cigarettes, uncomplicated
CPT/HCPCS: 36416; 36600; 71045; 74177; 80053; 81001; 82805; 82962; 83605; 83690; 83880; 84484; 85025; 85610; 87070; 87205; 93005; 94640; 96374; 99284; J2930; Q9967

== ENCOUNTER 2021-05-15 16:28 | Outpatient (CLI) | payer MEDICARE, MEDICAID, SELFPAY ==
[2021-05-15 17:03] LABS: Basophils # 0.1 10^3/uL (0.0-0.1); Basophils % 0.5 %; Eosinophils # 0.2 10^3/uL (0.0-0.8); Eosinophils % 1.7 %; Hematocrit 46.3 % (42.0-52.0); Hemoglobin 13.5 g/dL (11.7-16.6); Lymphocytes # 1.4 10^3/uL (0.8-4.8); Lymphocytes % 10.8 %; Mean Corpuscular HGB Conc 29.2 g/dL (30.0-36.0); Mean Corpuscular Volume 99.6 fl (80-94); Mean Platelet Volume 10.8 fL (7.4-10.4); Monocytes # 1.1 10^3/uL (0.2-0.9); Neutrophils # 10.41 10^3/uL (1.8-7.7); Neutrophils % 78.6 %; Nucleated Red Blood Cells % 0 %; Platelet Count 222 10^3/cmm (130-400); Red Blood Count 4.65 10^6/uL (4.1-5.3); Red Cell Distribution Width 14.8 % (12.1-15.1); White Blood Count 13.2 10^3/uL (4.0-10.0)
[2021-05-15 17:54] LABS: Folate Level 19.6 ng/mL (4.5-32.2)
== END 2021-05-15 16:29 | disposition home or self-care (01) ==
PROVIDERS: PCP Internal Medicine; Visit Provider Internal Medicine
DX: Z79.899 Other long term (current) drug therapy (principal)
CPT/HCPCS: 82746; 85025

== ENCOUNTER 2021-05-15 18:38 | Inpatient (IN) | payer MEDICARE, MEDICAID, SELFPAY ==
[2021-05-15 18:41] VITALS: BP 193/120; PULSE 115; RESP 20; TEMP 37.1; O2SAT 96; BMI 29.2
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
--- NOTE | 2021-05-15 18:47 | XRR_ITS ---
PROCEDURE INFORMATION: Exam: XR Chest Exam date and time: 05/15/2021 6:47 PM Age: 76 years old Clinical indication: Dyspnea; Additional info: SOB TECHNIQUE: Imaging protocol: XR of the chest. Views: 1 view. COMPARISON: CR XR chest 1V portable [id number] 05/12/2021 10:46 AM FINDINGS: Lungs: Increasing bilateral scattered ground-glass/airspace opacities are noted especially in the left lower lobe concerning for pneumonic infiltrates. Pleural spaces: Unremarkable. No pleural effusion. No pneumothorax. Heart/Mediastinum: The heart is enlarged. Bones/joints: No acute abnormality. XR/XR chest 1V portable [id number] IMPRESSION: Increasing bilateral scattered ground-glass/airspace opacities are noted especially in the left lower lobe concerning for pneumonic infiltrates. Radiation Dose CTDIVOL = (mGy): DLP = (mGy-cm)
--- NOTE | 2021-05-15 18:48 | ECG_ITS ---
[facility] Test Date: 2021-05-15 Pat Name: Damien Stringer Department: Room: 108 Gender: Male Mobile Home Technician: : 1945 Requested By: Min Membreno Order Number: [id number] Clarita MD: Yury Fernandez M.D. Measurements Intervals [place] Rate: 104 P: [place]: QRS: 26 QRSD: 82 T: 73 QT: 323 QTc: 426 Interpretive Statements ATRIAL FIBRILLATION WITH RAPID VENTRICULAR RESPONSE SEPTAL MYOCARDIAL INFARCTION , OF INDETERMINATE AGE [40+ ms Q WAVE IN V1/V2] Compared to ECG 05/12/2021 13:15:29 No significant changes Electronically Signed On 05-16-2021 13:17:17 WORK OVER RIG OPERATOR by Yury Fernandez M.D. [id number] f
--- NOTE | 2021-05-15 18:56 | CTR_ITS ---
PROCEDURE INFORMATION: Exam: CT Head Without Contrast Exam date and time: 05/15/2021 6:56 PM Age: 76 years old Clinical indication: Speech disturbance; Slurred speech; Additional info: Abnormal neurologic exam TECHNIQUE: Imaging protocol: Computed tomography of the head without contrast. Radiation optimization: All CT scans at this facility use at least one of these dose optimization techniques: automated exposure control; mA and/or kV adjustment per patient size (includes targeted exams where dose is matched to clinical indication); or iterative reconstruction. COMPARISON: CT head wo con* [id number] 04/29/2021 4:08 AM RADIATION DOSE METRICS: Total DLP (mGy-cm): 851.88 FINDINGS: Brain: There is volume loss and periventricular low density compatible with chronic small vessel disease changes. There is no acute hemorrhage, edema or mass effect. The left lobe is unremarkable. Cerebral ventricles: No ventriculomegaly. Paranasal sinuses: Visualized sinuses are unremarkable. No fluid levels. Mastoid air cells: Visualized mastoid air cells are well aerated. Orbital cavity: There is unchanged small misshapen and partially calcified right globe. Bones/joints: Unremarkable. No acute fracture. Soft tissues: Unremarkable. CT/CT head wo con* [id number] IMPRESSION: No acute intracranial abnormality. Radiation Dose CTDIVOL = (mGy): DLP = 851.88 (mGy-cm)
[2021-05-15 19:11] LABS: ABG PH Result 7.32 (7.35-7.45); Arterial Blood Gas Hematocrit 41.8 % (42-52); Base Excess ABG 13.7 mmol/L (-2.0-2.0); Blood Gas Allen Test Pos; Blood Gas LPM 3.5 %; Blood Gas Sample Site Radial, right; Blood Gas Sample Type Arterial; Oxygen Device NC
[2021-05-15] MEDS: ipratropium-albuterol 3 mL Neb INHALATION (19:31)
[2021-05-15 19:32] VITALS: BP 160/90; PULSE 110; RESP 32; O2SAT 98
[2021-05-15 19:33] VITALS: PULSE 107; RESP 20; O2SAT 99
--- NOTE | 2021-05-15 19:35 | PC.NURSE ---
Bi-pap initiated 05/16, FiO2 25%. Pt c/o lower abd pain. Dr. Membreno notified.
[2021-05-15 19:44] VITALS: RESP 28; O2SAT 97
[2021-05-15] MEDS: morphine 4 mg/mL SDV 1 mL IVP ×2 (19:44→22:43)
[2021-05-15] MEDS: ondansetron 2 mg/ML SDV 2 mL 4 MG IVP (19:44)
--- NOTE | 2021-05-15 19:54 | PC.NURSE ---
Pt removed mask despite encouragement to continue wearing. RT at bedside, Dr. Membreno aware. O2 at 3 L per NC placed on pt. with SpO2 at 92%.
[2021-05-15 20:22] LABS: SARS Covid-2 Antigen Negative (Negative)
[2021-05-15 20:26] LABS: Basophils # 0.1 10^3/uL (0.0-0.1); Basophils % 0.4 %; Eosinophils # 0.3 10^3/uL (0.0-0.8); Eosinophils % 2.2 %; Hemoglobin 13.9 g/dL (11.7-16.6); Lymphocytes # 1.4 10^3/uL (0.8-4.8); Lymphocytes % 10.1 %; Mean Corpuscular HGB Conc 29.6 g/dL (30.0-36.0); Mean Corpuscular Hemoglobin 29.4 pg (28.0-34.0); Mean Corpuscular Volume 99.4 fl (80-94); Mean Platelet Volume 9.9 fL (7.4-10.4); Monocytes # 0.8 10^3/uL (0.2-0.9); Monocytes % 6.1 %; Neutrophils # 10.81 10^3/uL (1.8-7.7); Neutrophils % 80.8 %; Nucleated Red Blood Cells % 0 %; Platelet Count 216 10^3/cmm (130-400); Red Blood Count 4.73 10^6/uL (4.1-5.3); Red Cell Distribution Width 14.6 % (12.1-15.1); White Blood Count 13.4 10^3/uL (4.0-10.0)
--- NOTE | 2021-05-15 20:48 | ECG_ITS ---
[facility] Test Date: 2021-05-15 Pat Name: Damien Stringer Department: Room: Gender: Male Plastic Surgery Nurse: : 1945 Requested By: Min Membreno Order Number: [id number] Clarita MD: Yury Fernandez M.D. Measurements Intervals [place] Rate: 105 P: [place]: QRS: 38 QRSD: 79 T: 73 QT: 319 QTc: 422 Interpretive Statements ATRIAL FIBRILLATION WITH RAPID VENTRICULAR RESPONSE WITH ABERRANT CONDUCTION OR VENTRICULAR PREMATURE COMPLEXES Compared to ECG 05/12/2021 13:15:29 Ventricular premature complex(es) now present Aberrant conduction of supraventricular beat(s) now present Myocardial infarct finding no longer present Electronically Signed On 05-17-2021 17:12:01 RELIEF PILOT by Yury Fernandez M.D. [email or web address]/[id number]
--- NOTE | 2021-05-15 20:51 | CTR_ITS ---
PROCEDURE INFORMATION: Exam: CT Chest With Contrast; Diagnostic Exam date and time: 05/15/2021 8:51 PM Age: 76 years old Clinical indication: Abdominal tenderness; Shortness of breath; Patient HX: HX of bladder and prostate CA C/O SOB, cough and abd pain; Additional info: AMS, SOB ? pneumonia, abdominal pain TECHNIQUE: Imaging protocol: Diagnostic computed tomography of the chest with contrast. Radiation optimization: All CT scans at this facility use at least one of these dose optimization techniques: automated exposure control; mA and/or kV adjustment per patient size (includes targeted exams where dose is matched to clinical indication); or iterative reconstruction. Contrast material: OMNI 300; Contrast volume: 95 ml; Contrast route: INTRAVENOUS (IV); COMPARISON: CT abdomen pelvis w con* [id number] 05/12/2021 1:54 PM RADIATION DOSE METRICS: Total DLP (mGy-cm): 2600.49 FINDINGS: Thyroid: Thyroid gland is heterogeneous. There is a 1 cm hypodense nodule in the right thyroid lobe. No follow-up is necessary. Lungs: Unchanged bibasilar consolidation is present, consistent with atelectasis, edema, or pneumonia. Mild interstitial and ground-glass opacities are also noted in the remaining lung parenchyma compatible with mild pneumonitis versus CHF. Pleural spaces: Trace pleural effusions versus pleural thickening is noted. Heart: The heart is enlarged. Pulmonary arteries: No pulmonary embolus is identified. Aorta: There is 4.0 cm aneurysmal dilatation of the ascending thoracic aorta at without mural hematoma or dissection. Lymph nodes: Unremarkable. No enlarged lymph nodes. Bones/joints: Old right rib fracture deformities are noted. Soft tissues: Unremarkable. COMMENTS: Consistent with the [employer]'s Incidental Findings Committee white paper (J Am Daniel Radiol 2015): In patients aged 35 years and older with an incidental thyroid nodule equal to or greater than 1.[address], MRI or extrathyroidal US, further evaluation with dedicated thyroid US is recommended for patients with normal life expectancy and without comorbidities. For smaller nodules without suspicious features, no further evaluation or follow up is recommended. PROCEDURE INFORMATION: Exam: CT Abdomen And Pelvis With Contrast Exam date and time: 05/15/2021 8:51 PM Age: 76 years old Clinical indication: Abdominal tenderness; Shortness of breath; Patient HX: HX of bladder and prostate CA C/O SOB, cough and abd pain; Additional info: AMS, SOB ? pneumonia, abdominal pain TECHNIQUE: Imaging protocol: Computed tomography of the abdomen and pelvis with contrast. Radiation optimization: All CT scans at this facility use at least one of these dose optimization techniques: automated exposure control; mA and/or kV adjustment per patient size (includes targeted exams where dose is matched to clinical indication); or iterative reconstruction. Contrast material: OMNI 300; Contrast volume: 95 ml; Contrast route: INTRAVENOUS (IV); COMPARISON: CT abdomen pelvis w con* [id number] 05/12/2021 1:54 PM RADIATION DOSE METRICS: Total DLP (mGy-cm): 2600.49 FINDINGS: Tubes, catheters and devices: A balloon bladder catheter is present. Liver: There are unchanged probable hemangiomas with the largest in the medial right lobe of the liver measuring 5.8 cm in greatest dimension. Additional smaller hepatic hypodensities are too small to characterize but unchanged. Gallbladder and bile ducts: Normal. No calcified stones. No ductal dilation. Pancreas: Normal. No ductal dilation. Spleen: The spleen is normal. An accessory splenule is present. Adrenal glands: The adrenal glands are normal. Kidneys and ureters: There is no evidence of hydronephrosis. There is bilateral nonobstructive nephrolithiasis versus renal vascular calcifications. There is bilateral cortical scarring both kidneys. There is an unchanged 1.6 cm simple cyst lower pole right kidney. Stomach and bowel: Unremarkable. No obstruction. No mucosal thickening. Moderate diverticulosis is present in the distal colon. There is no evidence of colitis/diverticulitis. Appendix: A normal appendix is identified. Intraperitoneal space: Unremarkable. No free air. No significant fluid collection. Vasculature: The aorta demonstrates moderate atherosclerotic calcification. Lymph nodes: Unremarkable.No enlarged lymph nodes. Urinary bladder: The bladder is decompressed. The bladder wall is thickened compatible with lack of distension but there is haziness of the adjacent fat concerning for post radiation changes for known prostatic carcinoma versus cystitis. Reproductive: The prostate demonstrates moderate nonspecific enlargement. The seminal vesicles are normal. Bones/joints: There are unchanged bilateral sacral ala fractures, fracture of the anteromedial column right acetabulum, fractures of the bilateral pubic bones and inferior pubic rami. There is osteopenia. No new bony fracture compared to the prior exam. Unchanged fractures of the bilateral transverse processes of L5. Soft tissues: There is a fat-containing umbilical hernia. There is a nonobstructing right inguinal hernia. Other findings: There is unchanged haziness of the presacral fat. This is probable reactive changes to the adjacent sacral fractures. CT/CT chest abd pel w con* IMPRESSION: 1. Unchanged bibasilar consolidation is present, consistent with atelectasis, edema, or pneumonia. 2. Mild interstitial and ground-glass opacities are also noted in the remaining lung parenchyma compatible with mild pneumonitis versus CHF. 3. There is 4.0 cm aneurysmal dilatation of the ascending thoracic aorta at without mural hematoma or dissection. IMPRESSION: 1. The bladder wall is thickened compatible with lack of distension but there is haziness of the adjacent fat concerning for post radiation changes for known prostatic carcinoma versus cystitis. 2. No bowel thickening or inflammatory changes. No ileus or obstruction. There is constipation with progression compared to the prior exam. No impaction. There is extensive colonic stool with progressive constipation compared to the prior exam without impaction. There is moderate to severe diverticulosis without diverticulitis. 3. Unchanged multiple pelvic fractures. Radiation Dose CTDIVOL = (mGy): DLP = 2600.49~2600.49 (mGy-cm)
[2021-05-15 20:58] LABS: Lactate (Lactic Acid level) 0.9 mmol/L (0.5-2.2)
[2021-05-15 21:00] LABS: Troponin(5th) Baseline 43 ng/L (0-15)
[2021-05-15 21:08] LABS: NT Pro B Type Natriuretic Pept 1048 pg/mL (0-450); Procalcitonin 0.05 ng/mL (0-0.5)
[2021-05-15 21:19] LABS: Alanine Aminotransferase 12 U/L (0-41); Albumin Level 3.3 g/dL (3.5-5.2); Alkaline Phosphatase 162 IU/L (40-130); Anion Gap 10.5 (5-19); Aspartate Amino Transferase 11 U/L (0-40); Blood Urea Nitrogen 15 mg/dL (8-23); C Reactive Protein 13.4 mg/L (0.0-4.9); Calcium 8.7 mg/dL (8.5-10.5); Carbon Dioxide 40 mmol/L (22-29); Chloride 97 mmol/L (98-107); Globulin 2.2 g/dL (1.3-4.6); Glucose 87 mg/dL (65-115); Osmolality Calculated 296 mOsm/kg (285-295); Potassium 4.5 mmol/L (3.5-5.1); Sodium 143 mmol/L (136-145); Total Bilirubin 0.3 mg/dL (0.15-1.2); Total Protein 5.5 g/dL (6.6-8.7)
[2021-05-15] MEDS: piperacillin-tazobactam 4.5 GM in sodium chloride 0.9% (plus) 50 ML IV (21:22)
[2021-05-15] MEDS: iohexol 300 mg/mL 100 mL Btl IV (21:39)
[2021-05-15 22:18] LABS: ABG PH Result 7.39 (7.35-7.45); Arterial Blood Gas Hematocrit 40.6 % (42-52); Base Excess ABG 14.5 mmol/L (-2.0-2.0); Blood Gas Allen Test Pos; Blood Gas LPM 2.5 %; Blood Gas Sample Site Radial, right; Blood Gas Sample Type Arterial; Oxygen Device NC; PO2 ABG 65.9 mmHg (80.0-100.0)
[2021-05-15 22:20] LABS: ABG PCO2 71.5 mmHg (35-45)
[2021-05-15] MEDS: azithromycin 500 MG in sodium chloride 0.9% 250 ML 250 MG IV (22:22)
[2021-05-15 22:44] VITALS: BP 172/107; PULSE 102; RESP 22; O2SAT 93
[2021-05-15 23:03] LABS: Troponin 5 2HR 37.15 ng/L (0-15)
[2021-05-15 23:04] LABS: Troponin 5 2HR Delta -5.85 ABS# (0-10)
[2021-05-15 23:55] LABS: Influenza A by IFA Negative (Negative); Influenza B by IFA Negative (Negative)
[2021-05-16] VITALS (22 sets, daily range): BP systolic 115–155; BP diastolic 57–82; PULSE 77–122; RESP 0–30; TEMP 36.6–36.9; O2SAT 90–97; BMI 29.2
--- NOTE | 2021-05-16 00:48 | ECG_ITS ---
[facility] Test Date: 2021-05-16 Pat Name: Damien Stringer Department: Room: 108 Gender: Male Repairer: : 1945 Requested By: Min Membreno Order Number: [id number] Clarita MD: Yury Fernandez M.D. Measurements Intervals [place] Rate: 122 P: [place]: QRS: 53 QRSD: 82 T: 79 QT: 284 QTc: 405 Interpretive Statements ATRIAL FIBRILLATION WITH RAPID VENTRICULAR RESPONSE MODERATE T-WAVE ABNORMALITY, CONSIDER ANTERIOR ISCHEMIA [-0.1+ mV T WAVE IN V3/V4] Compared to ECG 05/15/2021 20:38:51 T-wave abnormality now present Possible ischemia now present Ventricular premature complex(es) no longer present Aberrant conduction of supraventricular beat(s) no longer present Electronically Signed On 05-16-2021 13:28:42 GLAZE GRINDER by Yury Fernandez M.D. [id number]
[2021-05-16 02:41] LABS: Troponin 5 6HR 38.03 ng/L (0-15)
[2021-05-16 02:42] LABS: Ammonia 31 umol/L (16-60)
[2021-05-16 02:52] LABS: Troponin 5 6HR Delta -4.97 ng/L (0-12)
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
[2021-05-16 05:49] LABS: ABG PH Result 7.36 (7.35-7.45); Arterial Blood Gas Hematocrit 42.2 % (42-52); Blood Gas Allen Test Pos; Blood Gas Sample Site Radial, right; Blood Gas Sample Type Arterial; Oxygen Device BIPAP; PO2 ABG 71.6 mmHg (80.0-100.0)
[2021-05-16 05:50] LABS: ABG PCO2 74.4 mmHg (35-45)
--- NOTE | 2021-05-16 05:56 | USCV_ITS ---
Damien Stringer Age: 76 Gender: M : 1945 Exam Date: 05/16/2021 08:44 Ordering Phys: Radha Burton MD Technologist: Zaida Jay Exam Location: [facility] – [place] Indication: Acute CHF exacerbation BP: 111 / 60 HR: 76 Rhythm: Sinus Technical Quality: Fair MEASUREMENTS (Male / Female) Normal Values 2D ECHO LV Diastolic Diameter PLAX 3.9 cm 4.2 - 5.9 / 3.9 - 5.3 cm LV Systolic Diameter PLAX 2.5 cm LV Chamber Size 3.7 cm IVS Diastolic Thickness 2.1 cm 0.6 - 1.0 / 0.6 - 0.9 cm IVS Systolic Thickness 2.5 cm LVPW Diastolic Thickness 1.4 cm 0.6 - 1.0 / 0.6 - 0.9 cm LVPW Systolic Thickness 1.2 cm RV Chamber Size 2.9 cm LVOT Diameter 2.1 cm LV Ejection Fraction 2D Teich 66.9 % LV Ejection Fraction MOD 2C 56.3 % LV Ejection Fraction 2C AL 59.4 % LA Diameter 4.6 cm LA Width 3.7 cm LA Height 5.8 cm RA Width 3.2 cm RA Height 6.0 cm Aorta at Sinotubular Diameter 2.6 cm M-MODE LV Diastolic Diameter MM 5.8 cm 4.2 - 5.9 / 3.9 - 5.3 cm LV Systolic Diameter MM 3.2 cm LV Ejection Fraction MM Teich 75.0 % IVS Diastolic Thickness MM 1.5 cm 0.6 - 1.0 / 0.6 - 0.9 cm IVS Systolic Thickness MM 1.8 cm LVPW Diastolic Thickness MM 1.8 cm 0.6 - 1.0 / 0.6 - 0.9 cm LVPW Systolic Thickness MM 2.1 cm Aortic Annulus Diameter 4.3 cm LA Ao Ratio MM 1.4 MV E Point Septal Separation 0.3 cm DOPPLER AV Peak Velocity 82.0 cm/s LVOT Peak Velocity 61.0 cm/s AV Area Cont Eq vti 2.5 cm squared AV Area Cont Eq pk 2.7 cm squared MV Area PHT 3.5 cm squared MV E' Velocity 86.0 cm/s TR Peak Velocity 299.0 cm/s TR Peak Gradient 35.8 mmHg TV Peak E Velocity 42.0 cm/s Right Atrial Pressure 15.0 mmHg Pulmonary Artery Systolic Pressu 50.8 mmHg RV Acceleration Time 0.1 s RV Ejection Time 0.2 s RV AcT/ET 0.4 FINDINGS Left Ventricle Normal left ventricular size. LV systolic function is normal with EF of 55-60%. No regional wall motion abnormalities. Diastolic function is indeterminate because of atrial fibrillation. Right Ventricle The right ventricle is normal in size and function. Right Atrium The right atrium is normal in size. Left Atrium The left atrium is dilated Mitral Valve Thickened mitral valve without significant stenosis or prolapse. There is mild mitral regurgitation. Aortic Valve Structurally normal aortic valve without significant sclerosis or stenosis. There is no aortic regurgitation. Tricuspid Valve Structurally normal tricuspid valve without significant stenosis. Mild tricuspid regurgitation. Insufficient TR jet to calculate RVSP Pulmonic Valve Structurally normal pulmonic valve without significant stenosis. There is no pulmonic regurgitation. Pericardium Normal pericardium without effusion. Aorta Normal ascending aorta dimension. CONCLUSIONS LV systolic function is normal with EF 55 to 60%. Diastolic function is indeterminate because of atrial fibrillation. Left atrium is dilated. Mild mitral regurgitation is seen. Mild tricuspid regurgitation Compared to prior echocardiogram from 06/03/2020, no significant changes are noted Yury Fernandez MD (Electronically Signed) Final Date: 16 May 2021 13:13 S
[2021-05-16] MEDS: dexmedeTOMIDine 0.9 % NaCL 400 MCG/100 ML PREMIX IV (06:36)
[2021-05-16] MEDS: metoprolol tartrate 1 mg/1 mL SDV 5 mL 5 MG IVP (06:40)
[2021-05-16] MEDS: haloperidol inj 5 mg/mL INJ 1 mL IVP (06:45)
[2021-05-16] MEDS: FUROsemide 10 mg/mL SDV 10mL 60 MG IVP ×2 (07:04→18:17)
--- NOTE | 2021-05-16 07:30 | PC.NURSE ---
Initial pt rounding/ Pt is on BIPAP RT in room. Pt has closed eyes but has been moving his arms and jerking movements noted. trying to remove bipap mask. Precedex drip increased per protocol.
--- NOTE | 2021-05-16 08:04 | PC.NURSE ---
Admit Note Patient admitted to [facility] around 0230 from ED via stretcher. Covering service notified. Patient presents with AMS, respiratory distress. Orders reviewed & will continue to monitor. Patient and/or sales donor recruitment representative oriented to environment, equipment, and informed of the following as found in the admission booklet: patient rights & responsibilities, visitor policy, hand and respiratory hygiene practice. Patient and/or sales donor recruitment representative is agitated and confused, unable to comprehend teaching.
[2021-05-16] MEDS: budesonide 0.5 mg/2 mL Neb INHALATION ×2 (08:07→21:26)
[2021-05-16] MEDS: ipratropium-albuterol 3 mL Neb INHALATION ×3 (08:07→21:26)
--- NOTE | 2021-05-16 08:08 | PC.NURSE ---
Around 0700: Started precedex drip on patient at 0.1 mcg/kg/hr. Per Dr. Burton's orders patient was titrated up to 0.4 mcg/kg/hr. Patient tolerated well. Vitals stable. Will continue to monitor.
[2021-05-16] MEDS: cefTRIAXone 1,000 MG in sodium chloride 0.9% (plus) 50 ML 100 MG IV (08:17)
[2021-05-16 09:48] LABS: ABG PH Result 7.38 (7.35-7.45); Arterial Blood Gas Hematocrit 40.7 % (42-52); Base Excess ABG 16.9 mmol/L (-2.0-2.0); Blood Gas Allen Test Pos; Blood Gas Sample Type Arterial; HCO3 ABG 46.2 mmol/L (22-26); HGB O2 Sat 92.8 % (95-100); Ionized Calcium Level - ABG 1.3 mmol/L (1.1-1.4); Methemoglobin 0.7 % (0.4-1.5); Oxygen Saturation ABG 95.4; PO2 ABG 72.2 mmHg (80.0-100.0); Potassium Level - ABG 4.2 mmol/L (3.5-5.0); Total Hemoglobin 13.3 g/dL (14-18)
[2021-05-16 09:50] LABS: Alveolar-Arterial Oxygen Gradi 10.8 mmHg (5-10); Blood Gas Sample Site Radial, right; Oxygen Device BIPAP
[2021-05-16 09:57] LABS: ABG PCO2 78.3 mmHg (35-45)
[2021-05-16] MEDS: dexmedeTOMIDine 0.9 % NaCL 400 MCG/100 ML PREMIX 13.61 MCG IV (12:37)
[2021-05-16 12:43] LABS: ABG PH Result 7.41 (7.35-7.45); Arterial Blood Gas Hematocrit 41.4 % (42-52); Base Excess ABG 18.4 mmol/L (-2.0-2.0); Blood Gas Allen Test Pos; Blood Gas Sample Site Radial, right; Blood Gas Sample Type Arterial; Carboxyhemoglobin 2.1 %THgb (0.4-20.1); HCO3 ABG 47.2 mmol/L (22-26); HGB O2 Sat 88.4 % (95-100); Ionized Calcium Level - ABG 1.3 mmol/L (1.1-1.4); Oxygen Device BIPAP; Oxygen Saturation ABG 91.3; Total Hemoglobin 13.5 g/dL (14-18)
[2021-05-16 12:44] LABS: Add Urine Microscopic? YES; Bilirubin Urine Neg (Negative); Blood Urine 2+ (Negative); Glucose Urine UA Norm (Normal); Ketones Urine Negative (Negative); Leukocyte Esterase Urine Negative (Negative); Nitrate Urine Negative (Negative); Protein Urine Neg (Negative); Specific Gravity, Urine 1.005 (1.005-1.030); Urine Appearance Clear (CLEAR); Urine Color Yellow (Yellow); Urobilinogen Urine Norm (Negative); pH Urine 7 (5-7)
[2021-05-16 12:47] LABS: Add Urine Culture? No
--- NOTE | 2021-05-16 13:09 | PC.NURSE ---
precedex off as verbal order
--- NOTE | 2021-05-16 15:07 | PM.PN ---
Subjective Subjective: Interval history: Patient seen multiple times during the day today. Admitted overnight. Patient overnight placed on BiPAP for hypercapnic hypoxic respiratory failure with agitation and on Precedex drip. Today morning patient is lethargic after which Precedex drip was stopped and patient became a little more responsive. Patient has remained on BiPAP and has been transitioned from BiPAP to CPAP trying to manage hypercapnia. Vitals/I&O/Wt Last Vital Signs Temp 98.5 F 05/16/21 12:37 Pulse 98 05/16/21 13:00 Resp 18 05/16/21 12:37 BP 123/64 05/16/21 12:37 Pulse Ox 92 05/16/21 13:00 05/16/21 05/16/21 05/16/21 06:59 14:59 22:59 Intake Total 771.043 / 821.043 140.727 / 140.727 Output Total 800 / 800 2400 / 2400 Balance -28.957 / 21.043 -2259.273 / -2259.273 Weight last 48 hrs Weight 108.862 kg Weight 108.862 kg Physical Exam Narrative: EXAM NARRATIVE: General: Mild resp distress , AO x2 HEENT: PERRLA, pupils bilaterally equal and reactive, pallors not present Chest: B/L crackles and wheezing to auscultation CVS: S1-S2 regular, no murmurs, no tachycardia, no gallops, no rubs Abdomen: Soft, nontender, no organomegaly, bowel sounds present Neuro: No focal deficits, no facial deformity, AO x3, power 5/5 in all limbs Extremities: Healthy surgical dressing present on the right hip, mild tenderness, soft no erythema. Data : 05/15/21 20:10 05/15/21 20:10 Micro: Microbiology 05/15/21 21:19 Blood Culture - Preliminary Blood SPECIMEN COLLECTED 05/15/21 21:19 Blood Culture - Preliminary Blood SPECIMEN COLLECTED A&P Assessment and plan (1) Acute on chronic respiratory failure with hypoxia and hypercapnia: Status: Acute (2) Congestive heart failure (CHF): Status: Acute Qualifiers: Heart failure chronicity: acute on chronic Heart failure type: diastolic Qualified Code(s): I50.33 - Acute on chronic diastolic (congestive) heart failure (3) Chronic bronchitis: Status: Acute Qualifiers: Chronic bronchitis type: unspecified Qualified Code(s): J42 - Unspecified chronic bronchitis (4) Community acquired pneumonia: Status: Acute Qualifiers: Laterality: unspecified laterality Qualified Code(s): J18.9 - Pneumonia, unspecified organism (5) Altered mental status: Status: Acute Additional A&P Information Acute on chronic hypercapnic hypoxic respiratory failure: Requiring BiPAP. Most likely secondary to COPD/obstructive sleep apnea exacerbation in setting of congestive heart failure. Last echocardiogram from May 2020 shows an EF of 60% with moderately severe mitral regurgitation, diastolic dysfunction. Repeat echocardiogram. IV Lasix 60 mg twice daily, daily weights, strict input output charting, fluid restriction up to 1500 cc. Change Mckeon catheter. Start patient on prednisone 40 mg oral daily from tomorrow after Solu-Medrol 125 mg once today. Continue with DuoNebs every 6 hourly, budesonide twice daily. We will try to wean BiPAP once patient is more awake. Repeat ABG in 2 hours. Cannot rule out underlying pneumonia. Though less likely. Pro-Galdino negative. Check urine Legionella, bacterial antigen. Sputum culture awaited. For now continue with ceftriaxone and azithromycin. Will de-escalate antibiotics within next 24 hours if patient remains afebrile. Altered mental status: Most likely secondary to hypoxic/hypercapnic respiratory failure. Atrial fibrillation: On review of chart patient has been borderline tachycardic in last few presentations to the ER. On review of chart he supposed to be on metoprolol 50 mg twice daily and on Cardizem. Do not see Cardizem on med list currently. Continue with metoprolol 50 mg twice daily. Start patient on Cardizem 30 mg every 6 hourly. Given patient is not awake we will switch from Eliquis 5 mg twice daily to full dose Lovenox. CODE STATUS: Full code. Goals of care discussion: Discussed in detail with patient's DPOA on file. As per the conversation patient would have not wanted to live life support or mechanical ventilator. As per DPOA they are okay with patient requiring intubation once but would not want to keep him prolonged on ventilator. They did discuss that if patient ends up being on ventilator and afterwards if [facility] only to be coming back to hospital again with another respiratory failure at that point they would want the patient to be transitioned over to hospice care but for now we are okay with CPR and intubation. Protonix for PUD prophylaxis. Lovenox will help with DVT prophylaxis. N.p.o. for now. Attestations Medical Necessity Statement*: Requires further hospitalization for management of acute on chronic hypoxic/hypercapnic respiratory failure secondary to COPD/sleep apnea exacerbation in setting of baseline diastolic heart failure. Time Spent in Patient Care: Greater than 35 minutes (>than 50% of time spent in counselling and/or direct pt care on unit). Coding Level of Care Code Acute Escort Car Driver for Juan Delarosa Diagnoses Acute on chronic respiratory failure with hypoxia and hypercapnia J96.21; J96.22 Congestive heart failure (CHF) I50.33 Heart failure chronicity: acute on chronic Heart failure type: diastolic Chronic bronchitis J42 Chronic bronchitis type: unspecified Community acquired pneumonia J18.9 Laterality: unspecified laterality Altered mental status R41.82
[2021-05-16 15:33] LABS: ABG PH Result 7.45 (7.35-7.45); Arterial Blood Gas Hematocrit 43.9 % (42-52); Blood Gas Allen Test Pos; Blood Gas Sample Site Radial, right; Blood Gas Sample Type Arterial; HCO3 ABG 44.7 mmol/L (22-26); HGB O2 Sat 90.7 % (95-100); Ionized Calcium Level - ABG 1.3 mmol/L (1.1-1.4); Methemoglobin 0.8 % (0.4-1.5); Oxygen Saturation ABG 93.4; PO2 ABG 55.2 mmHg (80.0-100.0); Potassium Level - ABG 4.3 mmol/L (3.5-5.0); Total Hemoglobin 14.3 g/dL (14-18)
[2021-05-16 15:34] LABS: Alveolar-Arterial Oxygen Gradi 14.8 mmHg (5-10); Oxygen Device BIPAP
[2021-05-16 15:42] LABS: ABG PCO2 74.9 mmHg (35-45)
[2021-05-16] MEDS: azithromycin 500 MG in sodium chloride 0.9% 250 ML 250 MG IV (16:25)
[2021-05-16] MEDS: enoxaparin 100 mg/mL Syringe SUBCUT (16:25)
--- NOTE | 2021-05-16 16:51 | PC.NURSE ---
Pt is awake, confused and talkative asking what happened to him. RT in room. Bipap off for now. applied 2 L NC. spo2-86- 91% on nasal cannula.
[2021-05-16 17:34] LABS: ABG PCO2 64.9 mmHg (35-45)
[2021-05-16] MEDS: isosorbide dinitrate 20 mg Tablet PO (20:55)
[2021-05-16] MEDS: LORazepam 0.5 mg Tablet PO (20:55)
[2021-05-16] MEDS: metoprolol tartrate 50 mg Tablet PO (20:55)
[2021-05-16] MEDS: dilTIAZem 30 mg Tablet PO (20:55)
[2021-05-17] VITALS (11 sets, daily range): BP systolic 117–135; BP diastolic 63–77; PULSE 90–105; RESP 18–25; TEMP 36.6–37.1; O2SAT 90–98
[2021-05-17] MEDS: dilTIAZem 30 mg Tablet PO ×3 (03:15→15:28)
[2021-05-17] MEDS: enoxaparin 100 mg/mL Syringe SUBCUT (03:16)
[2021-05-17] MEDS: ipratropium-albuterol 3 mL Neb INHALATION ×4 (03:45→14:13)
[2021-05-17] MEDS: FUROsemide 10 mg/mL SDV 10mL 60 MG IVP ×2 (05:29→17:51)
[2021-05-17] MEDS: cefTRIAXone 1,000 MG in sodium chloride 0.9% (plus) 50 ML 100 MG IV (05:29)
[2021-05-17] MEDS: LORazepam 0.5 mg Tablet PO (05:30)
[2021-05-17 06:07] LABS: Basophils % 0.1 %; Hematocrit 40.3 % (42.0-52.0); Hemoglobin 12.2 g/dL (11.7-16.6); Lymphocytes # 0.5 10^3/uL (0.8-4.8); Lymphocytes % 6.6 %; Mean Corpuscular HGB Conc 30.3 g/dL (30.0-36.0); Mean Corpuscular Hemoglobin 29.4 pg (28.0-34.0); Mean Corpuscular Volume 97.1 fl (80-94); Mean Platelet Volume 12.5 fL (7.4-10.4); Monocytes # 0.1 10^3/uL (0.2-0.9); Monocytes % 1.3 %; Neutrophils # 7.08 10^3/uL (1.8-7.7); Neutrophils % 91.6 %; Nucleated Red Blood Cells % 0 %; Platelet Count 136 10^3/cmm (130-400); Red Blood Count 4.15 10^6/uL (4.1-5.3); Red Cell Distribution Width 14.7 % (12.1-15.1); White Blood Count 7.7 10^3/uL (4.0-10.0)
--- NOTE | 2021-05-17 06:21 | PC.NURSE ---
Shift Note Frequent safety and comfort rounds continue. Orders and/or nursing care completed as indicated. Patient monitored for response to intervention and treatment(s). Education provided include CHF. Patient and/or congressional representative verbalized understanding of all teaching. Hourly rounding performed, all needs met. Will continue to monitor.
[2021-05-17] MEDS: predniSONE 20 mg Tablet 40 MG PO (08:57)
[2021-05-17] MEDS: polyethylene glycol 3350 Pkt 17 gm PO (08:57)
[2021-05-17] MEDS: pantoprazole 40 mg SDV IVP (08:57)
[2021-05-17] MEDS: metoprolol tartrate 50 mg Tablet PO (08:57)
[2021-05-17] MEDS: sennosides-docusate Tablet 1 TAB PO (08:57)
[2021-05-17] MEDS: isosorbide dinitrate 20 mg Tablet PO ×2 (08:57→17:51)
[2021-05-17] MEDS: budesonide 0.5 mg/2 mL Neb INHALATION (09:06)
[2021-05-17 10:16] LABS: Alanine Aminotransferase 10 U/L (0-41); Albumin Level 2.8 g/dL (3.5-5.2); Alkaline Phosphatase 120 IU/L (40-130); Anion Gap 17.7 (5-19); Aspartate Amino Transferase 9 U/L (0-40); Blood Urea Nitrogen 20 mg/dL (8-23); Calcium 8.7 mg/dL (8.5-10.5); Carbon Dioxide 36 mmol/L (22-29); Chloride 93 mmol/L (98-107); Creatinine Clr Calc Pharmacy 107.8282; Globulin 2.2 g/dL (1.3-4.6); Glucose 170 mg/dL (65-115); Osmolality Calculated 303 mOsm/kg (285-295); Phosphorus 3.1 mg/dL (2.5-4.5); Potassium 3.7 mmol/L (3.5-5.1); Sodium 143 mmol/L (136-145); Total Bilirubin 0.5 mg/dL (0.15-1.2)
--- NOTE | 2021-05-17 10:24 | PC.CHAP ---
Pastoral Care Encounter/Spiritual Assessment Type of Contact [] Declined travel rn or visit [] Patient/Family/Request visit [] Outpatient visit [] Follow-up visit [] Physician referral [] Code/Alert [x] Routine visit [] Staff referral [] Actively dying [] Patient sleeping [] Family support [] [] Out of room [] Palliative care [] [x] Receiving care in room [] Pre-surgical visit [] Trauma [] Long length of stay [] ICU visit [] Other: Relational/Emotional Strength [] Patient feels connected with others/family/visitors/staff [] Distress [] Loneliness/isolation [] Abandonment Spirituality of Patient [] Person of Brandi [] Attends Mosque of their Brandi [] Believes in Prayer [] Reads Bible or Shinto materials [] There are Spiritual issues to be addressed Test And Turn Up Technician Interventions [x] Prayer [x] Active listening [x] Non-anxious presence [x] Spiritual/emotional support [] Crisis/trauma care [] Spiritual counseling [] Bereavement support [] Provided bereavement packet [] Provided Bible/devotional materials [] Provided toy/stuffed animal, coloring book to patient or family member [] Provided Communion [] Anointing/[place] [] Salvation [x] Completed spiritual assessment [] Other: Impact on Illness or Injury [] Angry [] Fearful [] Anxious [] Often cries [] Exhaustion [] Unable to work [] Unable to attend adventism [] Unable to walk/stand [] Unable to read [] Unable to drive [] Unable to eat/drink [] Unable to sleep [] Unable to be with family [] Patient intubated [] Other: Summary resting well Time spent with patient 5 min
--- NOTE | 2021-05-17 13:35 | P.DS_ITS ---
Discharge Providers Date of Admission: 05/16/21 00:12 Date of Discharge: May 17, 2021 Attending Provider at Admission: Radha Burton MD Attending Provider at Discharge: Hugo Carrington Primary Care Provider: Jose Nair MD Diagnoses at Discharge Discharge Diagnosis (1) Acute on chronic respiratory failure with hypoxia and hypercapnia: Status: Acute (2) Congestive heart failure (CHF): Status: Acute Qualifiers: Heart failure chronicity: acute on chronic Heart failure type: diastolic Qualified Code(s): I50.33 - Acute on chronic diastolic (congestive) heart failure (3) Chronic bronchitis: Status: Acute Qualifiers: Chronic bronchitis type: unspecified Qualified Code(s): J42 - Unspecified chronic bronchitis (4) Community acquired pneumonia: Status: Acute Qualifiers: Laterality: unspecified laterality Qualified Code(s): J18.9 - Pneumonia, unspecified organism (5) Altered mental status: Status: Acute Reason for Visit Reason for Visit: SOB Hospital Course Hospital Course Very pleasant 76-year-old gentleman with history of COPD, GWYN, diastolic congestive heart failure, recurrent UTI, prostate cancer, bladder cancer, recurrent hematuria, recurrent need for Mckeon catheter, although not chronic Mckeon catheter, was admitted due to acute encephalopathy, with similar admission 3 weeks ago at [facility] at which time had urinary tract infection. On admission noted also in hypoxic and hypercapnic respiratory failure. Required BiPAP support. Empirically treated with ceftriaxone and azithromycin for possibility of UTI, possibility of pneumonia, possible COPD exacerbation. Noted to have possible contribution from acute congestive heart failure secondary to elevated heart rates. It appears should be on both metoprolol and Cardizem, but recently Cardizem has not been on his medication list. Noted history of severe mitral regurgitation which could be getting worse with elevated heart rates. Cardizem was restarted while in the hospital. This will be continued on discharge due to improvement in heart rates to 80s-90s. His metabolic encephalopathy has resolved. He is awake, alert, pleasant, conversant, denies any complaints, although endorses had dysuria previously, not currently. He will complete antibiotic course with Levaquin for urinary tract infection, previously pansensitive Enterococcus, also with coverage for possible community- acquired pneumonia, as well as COPD exacerbation with a brief prednisone course, which is improving given today he has no wheezing, rhonchi, good air entry. Does not feel short of breath. Congestive heart failure has improved with increased dose of Lasix in the hospital. Repeat TTE with EF 55-60%, diastolic function indeterminate because of A. fib. Left atrial dilation. Mild MR, mild TR. Leukocytosis has resolved. So far there is no growth on blood culture. Urine bacterial antigens were negative. He has an indwelling Mckeon catheter. Discussed with his urologist. Discussed that he does not need to be chronically in place, although ended up being replaced repeatedly due to number of episodes of recurrence of hematuria. If possible after completion of antibiotic course, please attempt voiding trial and discontinuation of urinary catheter. In case of any questions, difficulties, or in case needing follow-up sooner than in 2 weeks, please contact the urology office. Physical Exam Const: COMMON NORMALS: no acute distress and alert GENERAL APPEARANCE: cooperative and comfortable ORIENTATION/CONSCIOUSNESS: Yes awake OTHER: Pleasant, conversant, in good spirits. Denies any complaints apart from being hungry and wanting food. HENMT: COMMON NORMALS: oropharynx normal Neck/C-Spine: COMMON NORMALS: no JVD Resp: COMMON NORMALS: normal respiratory effort and clear to auscultation bilaterally AUSCULTATION: clear to auscultation bilaterally Cardio: COMMON NORMALS: no JVD, regular rhythm, S1 normal heart sound present, S2 normal heart sound present and No murmurs present (Cardio) RHYTHM: regular rhythm HEART SOUNDS: S1 normal heart sound present and S2 normal heart sound present GI: COMMON NORMALS: Normal to inspection, nondistended, normoactive bowel sounds present, Soft to palpation and non-tender PALPATION: Yes Soft to palpation : OTHER: Mckeon draining straw-colored urine Extremity: COMMON NORMALS: no joint enlargement and no pedal edema Neuro: COMMON NORMALS: moves all extremities SENSORIUM/ORIENTATION: Yes alert Skin: COMMON NORMALS: no rashes or lesions noted GENERAL SKIN EXAM: no rashes or lesions noted Discharge Data Data Completed and Pending: Completed Studies During Hospitalization Category Date Time Status CT chest abd pel w con* Urgent Cat Scan 05/15/21 20:[address] head wo con* 7 [id number] Urgent Cat Scan 05/15/21 18:56 Completed XR chest 1V rebecca ble [id number] Urgent Exams 05/15/21 18:47 Completed CV. echo complete * [id number] Routine Ultrasound 05/16/21 05:56 Completed Pending at discharge Category Date Time Status Blood Culture Sta t Lab 05/15/21 21:19 Results Sputum Culture an d Gram Stain Stat Lab 05/16/21 09:26 Uncollected Labs from last 24 hours 05/17/21 05/17/21 05/17/21 09:39 04:50 04:50 WBC 7.7 RBC 4.15 Hgb 12.2 Hct 40.3 L MCV 97.1 H MCH 29.4 MCHC 30.3 RDW 14.7 Plt Count 136 MPV 12.5 H Neut % (Auto) 91.6 Lymph % (Auto) 6.6 [place] % (Auto) 1.3 Eos % (Auto) 0.0 Baso % (Auto) 0.1 Neut # (Auto) 7.08 Lymph # (Auto) 0.5 L [place] # (Auto) 0.1 L Eos # (Auto) 0.0 Baso # (Auto) 0.0 Nucleated RBC % (a uto) 0 Nucleated RBCs # 0.0 Specimen Type Sample Site ABG pH ABG pCO2 ABG pO2 ABG HCO3 ABG O2 Saturation ABG Base Excess [place] Test A-a O2 Gradient Hematocrit Hgb O2 Saturation Carboxyhemoglobin Methemoglobin Total Hemoglobin Sodium 143 Cancelled Potassium 3.7 Cancelled Glucose 170 H Cancelled Ionized Calcium O2 Delivery Device FiO2 PEEP Rail Gang Supervisor ID Chloride 93 L Cancelled Carbon Dioxide 36 H Cancelled Anion Gap 17.7 Cancelled BUN 20 Cancelled Creatinine 0.8 Cancelled GFR Calculation Not Reportable Cancelled Calculated Osmolal ity 303 H Cancelled Calcium 8.7 Cancelled Phosphorus 3.1 Cancelled Total Bilirubin 0.5 Cancelled AST 9 Cancelled ALT 10 Cancelled Alkaline Phosphata se 120 Cancelled Total Protein 5.0 L Cancelled Albumin 2.8 L Cancelled Globulin 2.2 Cancelled 05/16/21 05/16/21 15:25 12:35 WBC RBC Hgb Hct MCV MCH MCHC RDW Plt Count MPV Neut % (Auto) Lymph % (Auto) [place] % (Auto) Eos % (Auto) Baso % (Auto) Neut # (Auto) Lymph # (Auto) [place] # (Auto) Eos # (Auto) Baso # (Auto) Nucleated RBC % (a uto) Nucleated RBCs # Specimen Type Arterial Arterial Sample Site Radial, right Radial, right ABG pH 7.45 7.41 ABG pCO2 64.9 H* 74.9 H* ABG pO2 55.2 L 58.0 L ABG HCO3 44.7 H 47.2 H ABG O2 Saturation 93.4 91.3 ABG Base Excess 17.0 H 18.4 H Ancelmo Test Pos Pos A-a O2 Gradient 14.8 H 13.0 H Hematocrit 43.9 41.4 L Hgb O2 Saturation 90.7 L 88.4 L Carboxyhemoglobin 2.0 2.1 Methemoglobin 0.8 1.0 Total Hemoglobin 14.3 13.5 L Sodium 142.0 144.0 H Potassium 4.3 4.0 Glucose 93.0 93.0 Ionized Calcium 1.3 1.3 O2 Delivery Device Bipap Bipap FiO2 35.0 35.0 PEEP 8.0 8.0 Rail Gang Supervisor ID Vickie Acosta Chloride Carbon Dioxide Anion Gap BUN Creatinine GFR Calculation Calculated Osmolal ity Calcium Phosphorus Total Bilirubin AST ALT Alkaline Phosphata se Total Protein Albumin Globulin Vitals: Last Vital Signs Temp 97.8 F 05/17/21 04:00 Pulse 90 05/17/21 09:32 Resp 25 H 05/17/21 09:32 BP 117/64 05/17/21 09:32 Pulse Ox 90 05/17/21 09:32 Discharge Plan Discharge Patient Disposition: Xfer SNF Condition: Stable Prescriptions: New prednisone 20 mg Tablet 20 mg PO DAILY Qty: 3 RF: 0 diltiazem HCl 30 mg Tablet 30 mg PO Q6H Qty: 120 RF: 0 levofloxacin 750 mg tablet 750 mg PO DAILY 5 Days Qty: 5 RF: 0 Continued mirtazapine 30 mg Tablet 30 mg PO BEDTIME@20 RF: 0 metoprolol tartrate 50 mg tablet 50 mg PO BID@, RF: 0 sennosides-docusate sodium [Senna-S] 8.6-50 mg Tablet 1 tab PO BID@, RF: 0 cyanocobalamin (vitamin B-12) 1,000 mcg Tablet 1,000 mcg PO DAILY@08 RF: 0 lorazepam 0.5 mg Tablet 0.5 mg PO Q8H PRN (Reason: Anxiety) RF: 0 bisacodyl 10 mg Suppository 10 mg NE DAILY PRN (Reason: Constipation) RF: 0 isosorbide dinitrate 20 mg tablet 20 mg PO TID@08,16,20 RF: 0 polyethylene glycol 3350 [Miralax] 17 gram/dose Powder 17 g PO BID@08,20 RF: 0 albuterol sulfate 90 mcg/actuation Hfa Aerosol Inhaler 2 puff INHALATION Q6H PRN (Reason: Shortness Of Breath) RF: 0 Spiriva with HandiHaler 18 mcg Capsule, W/Inhalation Device 1 cap INHALATION DAILY@08 RF: 0 fluticasone furoate 27.5 mcg/actuation [place],Suspension 1 spray INTRANASAL DAILY@08 RF: 0 dutasteride-tamsulosin 0.5-0.4 mg Capsule, Er Multiphase 24 Hr 1 cap PO DAILY@08 RF: 0 Eliquis 5 mg tablet 5 mg PO BID@,20 RF: 0 ondansetron HCl [Zofran] 4 mg tablet 4 mg PO Q6H PRN (Reason: nausea and vomiting) Qty: 20 RF: 0 hydrocodone-acetaminophen 5-325 mg tablet 1 tab PO Q8H PRN (Reason: pain) Qty: 15 RF: 0 furosemide 40 mg Tablet 40 mg PO DAILY RF: 0 Discharge Orders: Discharge Order (Routine); Ordered 05/17/21 Ordered By: Hugo Carrington Referrals: Jose Nair MD [Primary Care Provider] - 4-7 days Wes Sheth MD [Physician] - 2 weeks [facility], [Staff Physician] - Discharge Diet: As Directed Discharge Activity: Increase activity as tolerated Patient Instructions: Opioid Safety (GEN) Activity Restrictions/Additional Instructions: Voiding trial after completion of antibiotic therapy for urinary tract infection. In case he does not do well with voiding trial, urinary catheter will need to be replaced. Please assist with follow-up with urology. Please call urology office as per Dr. Sheth in case of any questions regarding voiding trial, Mckeon catheter. Or if needs appointment sooner. Continue oxygen, 3 L/min nasal cannula, target saturation 88-92%, avoid hyperoxia to avoid retention of CO2. Continue CPAP nightly for sleep apnea. Discharge Attestations Time Spent in Discharge Care*: greater than 30 min Status at Discharge: Cognitive status at discharge: cognitively intact , Behavioral status at discharge: cooperative , Quality Metrics Clinical Quality Measures During this hospital stay, did patient experience: None Coding Level of Care Code Acute Chg FW DC note Diagnoses Acute on chronic respiratory failure with hypoxia and hypercapnia J96.21; J96.22 Congestive heart failure (CHF) I50.33 Heart failure chronicity: acute on chronic Heart failure type: diastolic Chronic bronchitis J42 Chronic bronchitis type: unspecified Community acquired pneumonia J18.9 Laterality: unspecified laterality Altered mental status R41.82
--- NOTE | 2021-05-17 15:00 | PC.NURSE ---
report called to SNF hand off report provide to staff on pt's discharge instructions.
[2021-05-17] MEDS: metoprolol tartrate 1 mg/1 mL SDV 5 mL 5 MG IVP (15:28)
[2021-05-17] MEDS: azithromycin 500 MG in sodium chloride 0.9% 250 ML 250 MG IV (16:41)
== END 2021-05-17 17:15 | disposition skilled nursing facility (03) | DRG 291 ==
LOC: ER 23:26 → CSU 05-16 00:12
PROVIDERS: Student in an Organized Health Care Education/Training Program; Admitting Provider Student in an Organized Health Care Education/Training Program; Emergency Provider Emergency Medicine; PCP Internal Medicine; Visit Provider Internal Medicine
DX: I11.0 Hypertensive heart disease with heart failure (principal); I50.33 Acute on chronic diastolic (congestive) heart failure; J18.9 Pneumonia, unspecified organism; J96.22 Acute and chronic respiratory failure with hypercapnia; J96.21 Acute and chronic respiratory failure with hypoxia; G93.41 Metabolic encephalopathy; J44.1 Chronic obstructive pulmonary disease with (acute) exacerbation; J44.0 Chronic obstructive pulmonary disease with (acute) lower respiratory infection; N39.0 Urinary tract infection, site not specified; E78.5 Hyperlipidemia, unspecified; I48.91 Unspecified atrial fibrillation; F41.8 Other specified anxiety disorders; Z85.51 Personal history of malignant neoplasm of bladder; Z85.46 Personal history of malignant neoplasm of prostate; I34.0 Nonrheumatic mitral (valve) insufficiency; G47.33 Obstructive sleep apnea (adult) (pediatric); I73.9 Peripheral vascular disease, unspecified; Z87.442 Personal history of urinary calculi; Z87.891 Personal history of nicotine dependence; F10.11 Alcohol abuse, in remission; Z79.01 Long term (current) use of anticoagulants; Z79.51 Long term (current) use of inhaled steroids; Z87.440 Personal history of urinary (tract) infections
CPT/HCPCS: 36415; 36600; 70450; 71045; 71260; 74177; 80051; 80053; 81001; 82140; 82330; 82746; 82803; 82805; 83605; 83735; 83880; 84100; 84145; 84443; 84484; 85025; 86140; 86403; 87040; 87426; 87449; 87804; 93005; 93306; 94640; 94660; 96365; 96366; 96367; 96372; 96375; 99291; C9113; J0456; J0696; J1630; J1650; J1940; J2270; J2405; J2543; J2930; J3370; J3490; J7040; J7050; J7512; J7626; Q9967

== ENCOUNTER → 2021-05-20 14:48 | Outpatient (BNVA) | payer MEDICARE, MEDICAID, SELFPAY | PROVIDERS: PCP Internal Medicine; Visit Provider Physician Assistant | DX: S32.591D Other specified fracture of right pubis, subsequent encounter for fracture with routine healing (principal); S32.592D Other specified fracture of left pubis, subsequent encounter for fracture with routine healing; X58.XXXD Exposure to other specified factors, subsequent encounter | CPT/HCPCS: 72190 ==

== ENCOUNTER 2021-05-25 21:00 | Emergency (ER) | payer MEDICARE, MEDICAID, SELFPAY ==
[2021-05-25 21:07] VITALS: BP 163/91; PULSE 119; RESP 32; TEMP 38.1; O2SAT 93; BMI 29.9
--- NOTE | 2021-05-25 21:12 | ECG_ITS ---
[facility] Test Date: 2021-05-25 Pat Name: Damien Stringer Department: Room: Gender: Male Chef: : 1945 Requested By: Priya Grullon Order Number: [id number] Clarita MD: Duy Yip M.D. Measurements Intervals [place] Rate: 120 P: DE: QRS: 18 QRSD: 82 T: 65 QT: 276 QTc: 390 Interpretive Statements ATRIAL FIBRILLATION WITH RAPID VENTRICULAR RESPONSE SEPTAL MYOCARDIAL INFARCTION , OF INDETERMINATE AGE [40+ ms Q WAVE IN V1/V2] Compared to ECG 05/16/2021 05:05:49 Myocardial infarct finding now present T-wave abnormality no longer present Possible ischemia no longer present Electronically Signed On 05-26-2021 0:15:15 STREETSWEEPER OPERATOR by Duy Yip M.D. [id number]
--- NOTE | 2021-05-25 21:12 | XRR_ITS ---
PROCEDURE INFORMATION: Exam: XR Chest Exam date and time: 05/25/2021 9:12 PM Age: 76 years old Clinical indication: Fever and shortness of breath TECHNIQUE: Imaging protocol: XR of the chest. Views: 1 view. COMPARISON: CT chest abd pel w con* 05/15/2021 9:35 PM FINDINGS: Lungs: Mild cephalization of the pulmonary vasculature. Bandlike subsegmental atelectasis changes versus scarring in the right mid lung zone and also left lower lung zone. Lungs are hypoaerated in general. Pleural spaces: Unremarkable. No pleural effusion. No pneumothorax. Heart/Mediastinum: Mild cardiac enlargement. Vasculature: Atherosclerotic plaques of thoracic aorta. Bones/joints: Unremarkable. XR/XR chest 1V portable [id number] IMPRESSION: 1. Bandlike atelectasis changes in both lungs are similar to the comparison CT chest from 05/15/2021. No distinct focal pneumonia is identified. 2. Suspect mild central pulmonary vascular congestion changes.
[2021-05-25] MEDS: acetaminophen 325 mg Tablet 650 MG PO (21:20)
[2021-05-25 21:25] LABS: Basophils % 0.2 %; Eosinophils # 0.2 10^3/uL (0.0-0.8); Eosinophils % 2.5 %; Hematocrit 42.1 % (42.0-52.0); Hemoglobin 12.2 g/dL (11.7-16.6); Lymphocytes % 12.3 %; Mean Corpuscular Hemoglobin 29.4 pg (28.0-34.0); Mean Corpuscular Volume 101.4 fl (80-94); Mean Platelet Volume 10.1 fL (7.4-10.4); Monocytes # 0.6 10^3/uL (0.2-0.9); Monocytes % 6.8 %; Neutrophils # 6.56 10^3/uL (1.8-7.7); Neutrophils % 77.7 %; Nucleated Red Blood Cells % 0 %; Platelet Count 176 10^3/cmm (130-400); Red Blood Count 4.15 10^6/uL (4.1-5.3); Red Cell Distribution Width 14.6 % (12.1-15.1); White Blood Count 8.4 10^3/uL (4.0-10.0)
[2021-05-25 21:36] LABS: ABG PH Result 7.35 (7.35-7.45); Blood Gas Allen Test Pos; Blood Gas Sample Site Radial, right; Blood Gas Sample Type Arterial; HCO3 ABG 44.3 mmol/L (22-26); Oxygen Device NC; PO2 ABG 72.7 mmHg (80.0-100.0)
[2021-05-25 21:36] LABS: Alanine Aminotransferase 8 U/L (0-41); Albumin Level 3.2 g/dL (3.5-5.2); Alkaline Phosphatase 127 IU/L (40-130); Anion Gap 12.9 (5-19); Aspartate Amino Transferase 9 U/L (0-40); Blood Urea Nitrogen 13 mg/dL (8-23); Calcium 8.6 mg/dL (8.5-10.5); Carbon Dioxide 37 mmol/L (22-29); Chloride 98 mmol/L (98-107); Globulin 2.3 g/dL (1.3-4.6); Glucose 125 mg/dL (65-115); Osmolality Calculated 298 mOsm/kg (285-295); Potassium 4.9 mmol/L (3.5-5.1); Sodium 143 mmol/L (136-145); Total Bilirubin 0.2 mg/dL (0.15-1.2); Total Protein 5.5 g/dL (6.6-8.7)
[2021-05-25 21:37] LABS: Lactic Sepsis W/Reflex 1.5 mmol/L (0.5-2.2)
[2021-05-25 21:37] LABS: ABG PCO2 79.8 mmHg (35-45)
[2021-05-25 21:50] VITALS: BP 163/91; PULSE 110; RESP 25; O2SAT 93
[2021-05-25 21:54] LABS: Influenza A by IFA Negative (Negative); Influenza B by IFA Negative (Negative); SARS Covid-2 Antigen Negative (Negative)
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
--- NOTE | 2021-05-25 22:07 | CTR_ITS ---
PROCEDURE INFORMATION: Exam: CT Head Without Contrast Exam date and time: 05/25/2021 10:07 PM Age: 76 years old Clinical indication: Altered mental status/memory loss; Additional info: Confusion TECHNIQUE: Imaging protocol: Computed tomography of the head without contrast. Radiation optimization: All CT scans at this facility use at least one of these dose optimization techniques: automated exposure control; mA and/or kV adjustment per patient size (includes targeted exams where dose is matched to clinical indication); or iterative reconstruction. COMPARISON: CT head wo con* [id number] 05/15/2021 7:14 PM RADIATION DOSE METRICS: Total DLP (mGy-cm): 970.55 FINDINGS: Brain: There is moderate cerebral atrophy. Negative for intracranial hemorrhage. No intracranial mass. No acute brain ischemia. No midline shift of brain. Gibson matter and white matter interfaces are well preserved. Cerebral ventricles: No ventriculomegaly. Paranasal sinuses: Visualized sinuses are unremarkable. No fluid levels. Mastoid air cells: Visualized mastoid air cells are well aerated. Orbital cavity: Chronic deformity of the right globe is redemonstrated without change from prior. Small volume, somewhat shrunken appearance. Unremarkable left globe. Vasculature: Intracranial atherosclerosis. Bones/joints: Unremarkable. No acute fracture. Soft tissues: Unremarkable. CT/CT head wo con* [id number] IMPRESSION: 1. Negative for acute intracranial abnormality. 2. No change from comparison.
[2021-05-25 22:13] LABS: INR 1.12 (0.8-1.2)
[2021-05-25] MEDS: sodium chloride 0.9% 1,000 ML 999 ML IV (22:15)
[2021-05-25 22:32] VITALS: BP 163/91; PULSE 98; RESP 16; TEMP 37.5; O2SAT 92
[2021-05-25] MEDS: doxycycline 100 mg Tablet PO (23:00)
[2021-05-26 00:33] VITALS: BP 167/89; RESP 24; TEMP 37.5; O2SAT 92
== END 2021-05-26 01:20 | disposition home or self-care (01) ==
PROVIDERS: Emergency Provider Emergency Medicine
DX: R50.9 Fever, unspecified (principal); Z79.01 Long term (current) use of anticoagulants; Z85.51 Personal history of malignant neoplasm of bladder; I11.0 Hypertensive heart disease with heart failure; I50.9 Heart failure, unspecified; J44.9 Chronic obstructive pulmonary disease, unspecified; Z85.46 Personal history of malignant neoplasm of prostate; E78.5 Hyperlipidemia, unspecified; Z87.891 Personal history of nicotine dependence; Z20.822 Contact with and (suspected) exposure to COVID-19
CPT/HCPCS: 36600; 70450; 71045; 80053; 82803; 83605; 85025; 85610; 87040; 87426; 87804; 93005; 96360; 99284; J7030